=== PATIENT | female | born 1960 | race Caucasian/White ===

== ENCOUNTER 2023-02-03 16:25 | Emergency (ER) | payer MEDICARE, MEDICAID, SELFPAY ==
[2023-02-03 16:33] VITALS: BP 154/99; PULSE 95; RESP 24; TEMP 35.5; O2SAT 98; BMI 47.0
[2023-02-03 16:42] VITALS: O2SAT 97
--- NOTE | 2023-02-03 16:42 | CRLHL7_ITS ---
For Patients: As a result of the Cures Act, medical imaging exams and procedure reports are released immediately into your electronic medical record. You may view this report before your referring provider. If you have questions, please contact your health care provider. INDICATION: Shortness of breath. TECHNIQUE: Chest 1 views. COMPARISON: March 28, 2018. FINDINGS: Cardiovascular and mediastinum: Heart size and vasculature are normal in caliber and appearance. Lungs and pleural spaces: Lungs are clear. No sign of infiltrate or mass. No sign of pleural effusion. No pneumothorax. Bones and soft tissues: No significant findings. IMPRESSION: No acute findings and no significant changes from the prior exam. Dictated by Zachery Rojas MD @ 02/03/2023 5:45:43 PM (Electronically Signed)
--- NOTE | 2023-02-03 16:44 | ED_ITS ---
HPI - General Adult General Chief complaint: Anxiety Stated complaint: Ill Time Seen by Provider: 02/03/23 16:32 History of Present Illness HPI narrative: Patient is a 62-year-old white female from [place] who lives in her own independent housing who has felt ill and dizzy for couple of days. She denies any dysuria frequency denies chest pain. Says she has had intermittent shortness of breath but also peripheral numbness dizziness, occasional abdominal discomfort, occasional chest tightness. She is scheduled to have a epidural steroid injection tomorrow for low back pain and left radicular pain. She reports that she got up about 2 in the afternoon today from her evening sleep and was able to go downstairs take a shower but then felt dizzy and called an ambulance was brought to the hospital. Patient went to the [facility] last couple of days but waited over an hour and a half and then left without being seen. The ER EMS staff that arrived felt she was hyperventilating and anxious. They coached her and she got better. The patient does report a history of anxiety, obesity, depression, chronic pain. She is on sertraline metformin and [place]. Related Data Home Medications Medication Instructions Recorded Confirmed aspirin .ROUTE 02/03/23 blood sugar diagnostic (OneTouch 02/03/23 02/03/23 Ultra Test strips) calcium carbonate 600 mg calcium 600 mg PO DAILY 02/03/23 02/03/23 (1,500 mg) tablet cholecalciferol (vitamin D3) .ROUTE 02/03/23 hydrocodone 5 mg-acetaminophen 325 1 tab PO Q6H 02/03/23 02/03/23 mg tablet hydrocodone 5 mg-acetaminophen 325 1 tab PO Q6H PRN moderate pain 02/03/23 02/03/23 mg tablet ibuprofen 400 mg tablet 400 mg PO Q6-8H PRN 02/03/23 02/03/23 metformin 500 mg tablet mg PO 02/03/23 methocarbamol 500 mg tablet 500 mg PO QID 02/03/23 02/03/23 polyethylene glycol 400 0.25 % eye drp ophthalmic (eye) 02/03/23 drops (Blink Tears) sertraline 50 mg tablet 50 mg PO DAILY 02/03/23 02/03/23 Allergies Allergy/AdvReac Type Severity Reaction Status Date / Time cephalexin Allergy Mild Rash Verified 02/03/23 16:59 gabapentin Allergy Mild Rash Verified 02/03/23 16:59 [id number] Reductase Allergy myalgia Verified 02/03/23 16:59 Inhibitor Sulfa (Sulfonamide Allergy Rash Verified 02/03/23 16:59 Antibiotics) trimethoprim AdvReac Unknown Verified 02/03/23 16:59 aripiprazole [From Abilify] AdvReac restlessnes Verified 02/03/23 16:59 s asenapine [From Saphris] AdvReac Dizziness Verified 02/03/23 16:59 lurasidone [From Latuda] AdvReac restless Verified 02/03/23 16:59 legs metformin AdvReac Diarrhea Verified 02/03/23 16:59 metoprolol AdvReac Anxiety Verified 02/03/23 16:59 metronidazole AdvReac Headache Verified 02/03/23 16:59 risperidone AdvReac psych Verified 02/03/23 16:59 tolterodine AdvReac Dizziness Verified 02/03/23 16:59 triamcinolone [From Kenalog] AdvReac Flushing Verified 02/03/23 16:59 vancomycin AdvReac Headache Verified 02/03/23 16:59 baby powder AdvReac Rash Uncoded 02/03/23 16:59 Review of Systems Status of ROS: Reports: 10 or more systems reviewed and unremarkable except as noted in History and below Exam Narrative: Exam Narrative: Objective: Patient's vital signs unremarkable she is afebrile, O2 sats 98% on room air Patient is alert or x3, appears very anxious, she talks in real breathy voice and her voice strips in an out intensity. She occasion closes her eyes but she is open them to command she follows all commands. HEENT is unremarkable no facial asymmetry mouth clear mucous membranes appear dry neck is supple chest clear heart rhythm regular heart murmur abdomen obese benign nontender extremities are no edema neurologic nonfocal good peripheral perfusion noted Patient does report pain in her low back when she moves her back. Const: Vital Signs, click to edit/add: Vital Signs - 24 hr 02/03/23 16:33 02/03/23 16:42 02/03/23 17:45 Temperature 96 F L Pulse Rate [Pulse Oximeter] 95 71 Respiratory Rate 24 Blood Pressure [Le ft Forearm] 154/99 H Pulse Oximetry 98 97 99 Oxygen Delivery Me thod Room Air Room Air Course Vital Signs Vital signs: Initial Vital Signs Temperature 96 F L 02/03/23 16:33 Temperature Source Temporal Artery Scan 02/03/23 16:33 Pulse Rate 95 02/03/23 16:33 Pulse Rhythm Regular 02/03/23 16:33 Pulse Strength 3+ Normal 02/03/23 16:33 Respiratory Rate 24 02/03/23 16:33 Blood Pressure 154/99 H 02/03/23 16:33 Blood Pressure Mean 117 H 02/03/23 16:33 Blood Pressure Position Sitting 02/03/23 16:33 Pulse Oximetry 98 02/03/23 16:33 Oxygen Delivery Method Room Air 02/03/23 16:33 Vital Signs Temperature 96 F L 02/03/23 16:33 Pulse Rate 95 02/03/23 16:33 Respiratory Rate 24 02/03/23 16:33 Blood Pressure 154/99 H 02/03/23 16:33 Pulse Oximetry 98 02/03/23 16:33 Oxygen Delivery Method Room Air 02/03/23 16:33 Temperature 96 F L 02/03/23 16:33 Pulse Rate 71 02/03/23 17:45 Respiratory Rate 24 02/03/23 16:33 Blood Pressure 154/99 H 02/03/23 16:33 Pulse Oximetry 99 02/03/23 17:45 Oxygen Delivery Method Room Air 02/03/23 17:45 Medical Decision Making [facility] Narrative Medical decision making narrative: 62-year-old white female with significant anxiety and mental health overlie with complaint of low back pain lower left leg pain and primarily dizziness and ?not feeling well?. Patient this point I think is a very difficult historian will however get reassuring labs in the form of troponin EKG cardiac monitoring chest x-ray laboratory studies. Will give her aspirin 324 mg orally. Will review the above-mentioned studies disposition pending findings will also run a COVID test. Depending on patient's clinical status disposition planning will be made. Addendum: Patient's chest x-ray by my read looks unremarkable her EKG shows limited R-wave R-wave progression anteriorly but no acute ST T wave changes no obvious ischemic changes. Her laboratory studies look reassuring., specifically her white blood cell count is normal hemoglobin normal potassium low normal at 3.5 sodium normal renal function normal glucose elevated 196 CRP is 1.5 COVID influenza and RSV are negative point of care troponin is 0. At this point I think the patient is stable she is much less anxious the Ativan seemed to really help her she will get a ride home. Rest light activity and recommend she proceed with her scheduled appointments. Recheck with regular doctor in the next 2 or 3 days light activity, light diet. Lab Data Labs: Lab Results 02/03/23 Range/Units 17:00 WBC 5.65 (4.50-11.00) K/uL RBC 4.64 (4.00-5.20) m/uL Hgb 13.7 (12.0-16.0) gm/dL Hct 40.1 (33.0-51.0) % MCV 86 (80-100) fL MCH 30 (26-34) pg MCHC 34 (32-36) gm/dL RDW Coeff of [place] 13.1 (11.5-15.5) % Plt Count 151 (140-440) K/uL Neut % (Auto) 72.0 (42.0-72.0) % Lymph % (Auto) 20.5 (20-44) % [place] % (Auto) 5.3 (0.0-11.0) % Eos % (Auto) 0.7 (0.0-7.0) % Baso % (Auto) 0.4 (0.0-3.0) % Neut # (Auto) 4.07 (1.7-7.0) K/uL Lymph # (Auto) 1.16 (0.90-2.90) K/uL [place] # (Auto) 0.30 (0.00-0.90) K/UL Eos # (Auto) 0.04 (0.00-0.50) K/uL Baso # (Auto) 0.02 (0.00-0.30) K/uL Sodium 138 (135-149) mmol/L Potassium 3.5 L (3.6-5.1) mmol/L Chloride 102 (96-114) mmol/L Carbon Dioxide 28 (20-32) mmol/L BUN 17 (7-30) mg/dL Creatinine 0.8 (0.5-1.5) mg/dL Estimated Creat Clear 72.72 Estimated GFR 84 ml/min Glucose 196 H (60-115) mg/dL Calcium 9.3 (8.4-10.6) mg/dL Total Bilirubin 1.4 (0.1-1.5) mg/dL Direct Bilirubin 0.5 (0.0-0.5) mg/dL AST 36 H (12-35) U/L ALT 35 (4-35) U/L Alkaline Phosphatase 85 (40-150) U/L C-Reactive Protein 1.5 H (0.5-1.0) mg/dL NT-Pro-B Natriuret Pep 96 pg/mL Total Protein 7.5 (6.0-8.3) g/dL Albumin 4.3 (3.3-5.0) g/dL Amylase 53 (18-89) U/L SARS-CoV-2 (PCR) Negative SARS-CoV-2 (Negative) Influenza Type A (PCR) Negative PCR FLU A (Negative) Influenza Type B (PCR) Negative PCR FLU B (Negative) RSV (PCR) Negative PCR RSV (Negative) POC Troponin I 0.00 L (0.01-0.04) ng/ml Discharge Plan Discharge Clinical Impression: Dizziness, Hyperventilation, Acute anxiety Patient Disposition: Home w/ Parent or Adult Condition: Improved Additional Instructions: Rest, fluids, light activity, proceed with regular scheduled appointments. Continue home medications. Return as needed. Activity Level: Light activity Discharge Diet: Low Fat/Low Cholesterol Prescriptions: No Action metformin 500 mg tablet PO hydrocodone-acetaminophen 5-325 mg tablet 1 tab PO Q6H PRN (Reason: moderate pain) (DME) OneTouch Ultra Test Strip 1 strip MISCELLANEOUS DAILY sertraline 50 mg tablet 50 mg PO DAILY aspirin [Adult Aspirin Regimen] .ROUTE Blink Tears 0.25 % drops ophthalmic (eye) calcium carbonate 600 mg calcium (1,500 mg) tablet 600 mg PO DAILY hydrocodone-acetaminophen 5-325 mg tablet 1 tab PO Q6H ibuprofen 400 mg tablet 400 mg PO Q6-8H PRN methocarbamol 500 mg tablet 500 mg PO QID cholecalciferol (vitamin D3) .ROUTE Stand Alone Forms: MyHealth Info Instructions
[2023-02-03] MEDS: LORazepam 2 MG/ML inj 1 MG IVP (17:00)
[2023-02-03 17:39] LABS: Basophils Absolute Auto 0.02 K/uL (0.00-0.30); Basophils Percent Auto 0.4 % (0.0-3.0); Eosinophils Absolute Auto 0.04 K/uL (0.00-0.50); Eosinophils Percent Auto 0.7 % (0.0-7.0); Hematocrit 40.1 % (33.0-51.0); Hemoglobin* 13.7 gm/dL (12.0-16.0); Immature Granulocytes Abs Auto 0.06 K/uL (0.00-0.30); Immature Granulocytes Pct Auto 1.1 %; Lymphocytes Absolute Auto 1.16 K/uL (0.90-2.90); Lymphocytes Percent Auto 20.5 % (20-44); Mean Corpuscular HGB Conc 34 gm/dL (32-36); Mean Corpuscular Hemoglobin 30 pg (26-34); Mean Corpuscular Volume 86 fL (80-100); Monocytes Percent Auto 5.3 % (0.0-11.0); Neutrophils Absolute Auto 4.07 K/uL (1.7-7.0); Platelet Count* 151 K/uL (140-440); RDW Coefficient of Variation % 13.1 % (11.5-15.5); Red Blood Count 4.64 m/uL (4.00-5.20); White Blood Count* 5.65 K/uL (4.50-11.00)
[2023-02-03 17:41] LABS: Slide Review Reflex No
[2023-02-03 17:45] VITALS: PULSE 71; O2SAT 99
[2023-02-03 17:50] LABS: Albumin* 4.3 g/dL (3.3-5.0); Chloride* 102 mmol/L (96-114)
[2023-02-03 17:51] LABS: Potassium* 3.5 mmol/L (3.6-5.1); Sodium* 138 mmol/L (135-149)
[2023-02-03 17:53] LABS: Amylase* 53 U/L (18-89); Creatinine* 0.8 mg/dL (0.5-1.5); Est. Creatinine Clearance* 72.72; Estimated Glomerular Filt Rate 84 ml/min
[2023-02-03 17:54] LABS: Alanine Aminotransferase* 35 U/L (4-35); Alkaline Phosphatase* 85 U/L (40-150); Aspartate Amino Transferase* 36 U/L (12-35); Bilirubin Direct* 0.5 mg/dL (0.0-0.5); Bilirubin Total* 1.4 mg/dL (0.1-1.5); Blood Urea Nitrogen* 17 mg/dL (7-30); Calcium* 9.3 mg/dL (8.4-10.6); Carbon Dioxide* 28 mmol/L (20-32); Glucose* 196 mg/dL (60-115); Total Protein* 7.5 g/dL (6.0-8.3)
[2023-02-03 17:55] LABS: PCR FLU A Negative PCR FLU A (Negative); PCR FLU B Negative PCR FLU B (Negative); PCR RSV Negative PCR RSV (Negative)
[2023-02-03 17:56] LABS: C Reactive Protein* 1.5 mg/dL (0.5-1.0)
[2023-02-03 18:04] LABS: SARS PCR* Negative SARS-CoV-2 (Negative)
[2023-02-03 18:05] LABS: NT Pro B Type NatriureticPept* 96 pg/mL
== END 2023-02-03 18:25 | disposition home or self-care (01) ==
PROVIDERS: Emergency Provider Family Medicine
DX: R42 Dizziness and giddiness (principal); R06.4 Hyperventilation; F41.9 Anxiety disorder, unspecified
CPT/HCPCS: 36415; 71045; 80048; 80076; 82150; 83880; 84484; 85025; 86140; 87631; 93005; 94761; 96374; 99284; 99285; J2060

== ENCOUNTER 2025-07-06 22:09 | Observation (INO) | payer MEDICARE, MEDICAID, SELFPAY ==
--- OUTSIDE RECORDS SUMMARY | 2025-04-26 07:09 | XMS_ITS | Continuity of Care Document ---
Author Organization [facility] Address [address] [address] [place] [address] Phone Care Team Providers Care Auto Body Detailer Name Role Phone Bernardo BAEZ, Mitra Unavailable Unavailable Allergies, Adverse Reactions, Alerts Substance Reaction Status Criticality LURASIDONE HCL Active No Informatio n aripiprazole Active No Information ASENAPINE MALEATE Active No Informa tion ASENAPINE MALEATE Active No Informa tion metformin Active No Information cephalexin Active No Information gabapentin Active No Information TRIAMCINOLONE ACETONIDE Active No I nformation metronidazole Active No Information vancomycin Active No Information tolterodine unknown reaction Active No Informat ion ASENAPINE MALEATE unknown reaction Active No Inf ormation cephalexin unknown reaction Active No Informat ion Sulfa (Sulfonamide Antibiotics) unknown reaction Activ e No Information talc Rash Active No Information metoprolol anxiety Active No Information risperidone halucinations Active No Information trimethoprim Hives Active No Information sulfamethoxazole Hives Active No Informat ion WARNIN allergy(ies) could not be collected because the type is not supported. Please contact the source practice for further details. Medications Medication Instructions Dosage Effective Dates (start - stop) Status Comments Tylenol Extra Strength 500 mg tablet take 2 tablet by oral route every 4 hours as needed 1000 MG - Active hydroxyzine HCl 25 mg tablet take 1 tablet by oral route 3 times every day as needed as needed 25 MG - Active Centrum Women 18 mg-400 mcg tablet take 1 tablet by oral route every day with food 1.00 tablet - Active Insulin unknown - Active lidocaine 5 % topical patch apply 1 patch by topical route every day (May wear up to 12hours.) as needed 1.00 patch - Active metformin ER 500 mg tablet,extended release 24 hr take 1 tablet by oral route 2 times every day with the evening meal 500 MG - Active methocarbamol 500 mg tablet take 2 tablet by oral route 4 times every day as needed 1000 MG - Active OneTouch Delica Plus Lancet 33 gauge - Active oxycodone 5 mg tablet take 1 tablet by oral route every 8 hours as needed as needed 5 MG - Active Ozempic 2 mg/dose (8 mg/3 mL) subcutaneous pen injector inject (0.25) by subcutaneous route every week on the same day of each week - Active sertraline 50 mg tablet take 1 tablet by oral route every day 50 MG - Active Tums 200 mg (as calcium carbonate 500 mg) chewable tablet take 1 - 2 Tablet by Oral route every day as needed as needed 1-2 Tablet - Active ibuprofen 400 mg tablet take 1 tablet by oral route every 4 - 6 hours as needed 400 MG - Active Zeasorb AF 2 % topical powder apply by topical route 2 times every day to the affected area(s) in the morning and evening 0.00 - Active Procedures Procedure Date Offic/outpt E&m Estab Moderate 25 Complex e/m visit add on Offic/outpt E&m Estab Mod-hi 2 24 Offic/outpt E&m Estab Mod-hi 2 23 Colonoscopy Flex; W/bx 1/mx Offic/outpt E&m Estab Mod-hi 2 22 Offic/outpt E&m Estab Mod-hi 2 21 Telephone E&M III 21-30 Min MD SHERRELL Telephone E&M II 11-20 Min MD SHERRELL Offic/outpt E&m Estab Mod-hi 2 20 Offic/outpt E&m Estab Mod-hi 2 19 Offic/outpt E&m Estab Mod-hi 2 19 Offic/outpt E&m Estab Low-mod 8 Ugi Endo; W/bx 1/mx Offic/outpt E&m Estab Mod-hi 2 18 Offic/outpt E&m Estab Low-mod 8 Offic/outpt E&m Estab Mod-hi 2 18 Offic/outpt E&m Estab Low-mod 8 Offic/outpt E&m Estab Mod-hi 2 18 Routine Serum Collection Bld Ct; Hg/pltlt Ct Auto/compl 18 Basic Metabolic Panel Offic/outpt E&m Estab Mod-hi 2 18 Offic/outpt E&m Estab Mod-hi 2 17 Colorectal Ca Screen Hi Risk I 17 Offic/outpt E&m Estab Mod-hi 2 17 Offic/outpt E&m Estab Mod-hi 2 16 Offic/outpt E&m Estab Mod-hi 2 16 Routine Serum Collection Bld Ct; Hg & Platelet Ct Autom 16 Bilirubin; Direct Comp Metabolic Panel Medical nutrition therapy, initial, each 15 minutes Offic/outpt E&m Estab Mod-hi 2 15 FibroScan Offic/outpt E&m Estab Low-mod 4 1036F G8421 G8427 G8482 4040F 3017F G8950 Bld Ct; Hg/pltlt Ct Auto/compl 13 Alpha-fetoprotein; Serum Hepatic Function Panel Basic Metabolic Panel Prothrombin Time Offic/outpt E&m Estab Mod-hi 2 13 Routine Serum Collection 1036F G8417 Director Risk Hepatitis C Antibody; Offic/outpt E&m Estab Mod-hi 2 12 Routine Serum Collection G8447 1036F G8417 Colorectal Ca Screen Hi Risk I 12 Offic/outpt E&m Estab Mod-hi 2 11 G8447 1036F G8417 Offic/outpt E&m Estab Mod-hi 2 10 G8447 Offic/outpt E&m Estab Mod-hi 2 09 G8447 Offic/outpt E&m Estab Mod-hi 2 09 G8447 Bx Liver Needle; Percut Offic/outpt E&m Estab Mod-hi 2 09 Routine Serum Collection Offic/outpt E&m Estab Minor 10 08 Routine Serum Collection G8447 Offic/outpt E&m Estab Low-mod 8 G8447 Ugi Endo; W/bx 1/mx Level Iv-surg Path Gross/micro 08 Offic/outpt E&m Estab Mod-hi 2 08 Offic/outpt E&m Estab Mod-hi 2 07 Routine Serum Collection Colorectal Ca Screen Hi Risk I 07 Offic/outpt E&m Estab Mod-hi 2 06 Routine Serum Collection Offic/outpt E&m Estab Mod-hi 2 06 Routine Serum Collection Offic/outpt E m Estab Mod Advance Directives Directive Yes / No Effective Date File Name No Information Encounters Encounter Description Practice Location Reason(s) For Visit Diagnoses Date Provider Providers Copied on Encounter [facility] [address] [address], [place], [id number], [place] tel:[phone] [facility] No Information Apr-0 5 Bernardo Manriquez. [address] [place] [address], [address], [id number], [place]. tel:[phone] Jimy Posada MD. tel:[phone] Offic/outpt E&m Estab Moderate [facility], [address] [address], [place], [id number], [place] tel:[phone] [facility] GI Symptoms or Concerns (chief complaint) Liver cirrhosis secondary to NAQVI (nonalcoholic steatohepatit is)Unspecifie d cirrhosis of liverDietary counseling and surveillance 5 Bernardo Manriquez. [address] [place] [address], [id number], [place]. tel:[phone] Jimy Posada MD. tel:[phone] ring Provider: Mitra Chang MD, [address] [place] [address], [address]. [phone] [facility], [address] [address], [place], [id number], [place] tel:[phone] [place] [address] No Information Oct- 5 Bernardo Manriquez. [address] [place] [address], [address], [id number], [place]. tel:[phone] Referring Provider: Referral Self, USE FOR SELF REFERRALS. [facility], [address] [address], [place], [id number], [place] tel:[phone] [facility] Liver cirrhosis secondary to NASHUnspecifi ed cirrhosis of liver 5 Bernardo Manriquez. [address] [place] [address], [id number], [place]. tel:[phone] Referring Provider: Referral Self, USE FOR SELF REFERRALS. [facility], [address] [address], [place], [id number], [place] tel:[phone] [facility] NAQVI (nonalcoholic steatohepatit is) 4 Bernardo BAEZ Manriquez. [address] [facility], [place] [address], [place], [id number], [place]. tel:[phone] Offic/outpt E&m Estab Mod-hi 2 [facility], [address] [address], [facility] [place], [id number], [place] tel:[phone] [facility] GI Symptoms or Concerns (chief complaint) Liver cirrhosis secondary to NASHUnspecifi ed cirrhosis of liver 4 Bernardo BAEZ Manriquez. [address] [facility], [place], [place], [address], [place]. tel:[phone] Juana Magana MD. tel:[phone] Provider: Referral Self, USE FOR SELF REFERRALS. [facility], [address] [address], [place], [id number], [place] tel:[phone] [facility] Chronic liver disease 4 Bernardo BAEZ Manriquez. [address] [facility], [place] [address], [place], [id number], [place]. tel:[phone] Referring Provider: Referral Self, USE FOR SELF REFERRALS. Offic/outpt E&m Estab Mod-hi 2 [facility], [address] [address], [place], [id number], [place] tel:[phone] [facility] GI Symptoms or Concerns (chief complaint) NAFLD (nonalcoholic fatty liver disease) 3 Bernardo BAEZ Manriquez. [address] [facility], [place] [address], [place], [id number], [place]. tel:[phone] Juana Magana MD. tel:[phone] Provider: Referral Self, USE FOR SELF REFERRALS. [facility], [address] [address], [place], [id number], [place] tel:[phone] [facility] Chronic liver disease 2 Bernardo BAEZ Manriquez. [address] [facility], [address], [id number], [place]. tel:[phone] [facility], [address] [address], [place], [id number], [place] tel:[phone] [facility] No Information Ashu- 2 Ovi Varela. [address] [place] [address], [address], [id number], [place]. tel:[phone] Referring Provider: Avery Dior MD S, [address] [place] [address], [address]. tel:[phone] Offic/outpt E&m Estab Mod-hi 2 [facility], [address] [address], [place], [id number], [place] tel:[phone] [facility] GI Symptoms or Concerns (chief complaint) NAQVI (nonalcoholic steatohepatit is) 2 Bernardo Manriquez. [address] [place] [address], [id number], [place]. tel:[phone] Juana Magana MD. tel:[phone] ring Provider: Referral Self, USE FOR SELF REFERRALS. [facility], [address] [address], [place], [id number], [place] tel:[phone] [facility] No Information 2 Bernardo Manriquez. [address] [place] [address], [address], [id number], [place]. tel:[phone] [facility], [address] [address], [place], [id number], [place] tel:[phone] [facility] Other cirrhosis of liver 1 Bernardo Manriquez. [address] [place] [address], [address], [id number], [place]. tel:[phone] Offic/outpt E&m Estab Mod-hi 2 [facility], [address] [address], [place], [id number], [place] tel:[phone] [facility] GI Symptoms or Concerns (chief complaint) Periumbilical abdominal pain 1 Ovi Varela. [address] [place] [address], [id number], [place]. tel:[phone] Referring Provider: Referral Self, USE FOR SELF REFERRALS. [facility], [address] [address], [place], [place], [id number], [place] tel:[phone] [facility] No Information 1 Sofia Oneal. [address] [place] [address], [id number], [place]. tel:[phone] Telephone E&M III 21-30 Min SHERRELL [facility], [address] [address], [place], [id number], [place] tel:[phone] [facility] GI Symptoms or Concerns (chief complaint) NAQVI (nonalcoholic steatohepatit is) 1 Bernardo Manriquez. [address] [place] [address], [id number], [place]. tel:[phone] Referring Provider: Referral Self, USE FOR SELF REFERRALS. [facility], [address] [address], [place], [id number], [place] tel:[phone] [facility] No Information 1 Bernardo Manriquez. [address] [place] [address], [id number], [place]. tel:[phone] [facility], [address] [address], [place], [address], [place] tel:[phone] [facility] Chronic liver disease 0 Bernardo Manriquez. [address] [place] [address], [id number], [place]. tel:[phone] Telephone E&M II 11-20 Min SHERRELL [facility], [address] [address], [place], [id number], [place] tel:[phone] [facility] GI Symptoms or Concerns (chief complaint) NAQVI (nonalcoholic steatohepatit is) 0 0 Bernardo Manriquez. [address] [facility], [address], [id number], [place]. tel:[phone] Referring Provider: Referral Self, USE FOR SELF REFERRALS. Offic/outpt E&m Estab Mod-hi 2 [facility], [address] [address], [place], [place], [address], [place] tel:[phone] [facility] GI Symptoms or Concerns (chief complaint) NAFLD (nonalcoholic fatty liver disease) 0 Bernardo Manriquez. [address] [facility], [address], [id number], [place]. tel:[phone] Referring Provider: Referral Self, USE FOR SELF REFERRALS. [facility], [address] [address], [place], [place], [id number], [place] tel:[phone] [facility] No Information 0 Bernardo Manriquez. [address] [facility], [facility] [address], [place], [place], [id number], [place]. tel:[phone] Offic/outpt E&m Estab Mod-hi 2 [facility], [address] [address], [place], [place], [id number], [place] tel:[phone] [facility] GI Symptoms or Concerns (chief complaint) Liver cirrhosis secondary to NASHUnspecifi ed cirrhosis of liverDietary counseling and surveillance 9 Bernardo Manriquez. [address] [facility], [facility] [address], [place], [id number], [place]. tel:[phone] Referring Provider: Referral Self, USE FOR SELF REFERRALS. Offic/outpt E&m Estab Mod-hi 2 [facility], [address] [address], [place], [place], [id number], [place] tel:[phone] [facility] GI Symptoms or Concerns (chief complaint) NAFLD (nonalcoholic fatty liver disease) 9 Bernardo Manriquez. [address] [facility], [address], [place], [place], [id number], [place]. tel:[phone] Referring Provider: Referral Self, USE FOR SELF REFERRALS. Offic/outpt E&m Estab Low-mod [facility], [address] [address], [place], [place], [id number], [place] tel:[phone] [facility] GI Symptoms or Concerns (chief complaint) Gastroesophag eal reflux disease without esophagitisEs ophageal dysphagiaDiet dacia counseling and surveillance 8 Phillip Panda. [address] [facility], [place] [address], [place], [id number], [place]. tel:[phone] Referring Provider: Referral Self, USE FOR SELF REFERRALS. [facility], [address] [address], [place], [place], [id number], [place] tel:[phone] [facility] No Information 8 Phillip Panda. [address] [facility], [facility] [address], [place], [id number], [place]. tel:[phone] Referring Provider: [place], [address] [address] [place], [address]. tel:[phone] Offic/outpt E&m Estab Mod-hi 2 [facility], [address] [address], [place], [place], [id number], [place] tel:[phone] [facility] GI Symptoms or Concerns (chief complaint) Cirrhosis of liver without ascites, unspecified hepatic cirrhosis typeDietary counseling and surveillanceE levated blood-pressur e reading, w/o diagnosis of htn 8 Bernardo Manriquez. [address] [facility], [address], [place], [place], [id number], [place]. tel:[phone] Referring Provider: [place], [address] [place], [address]. tel:[phone] Offic/outpt E&m Estab Low-mod [facility], [address] [address], [place], [place], [address], [place] tel:[phone] [facility] GI Symptoms or Concerns (chief complaint) Esophageal dysphagia 8 Phillip Panda. [facility], [id number], [place]. tel:[phone] Ref[place]: [place], [address] [address], [place], [address]. tel:[phone] Offic/outpt E&m Estab Mod-hi 2 [facility], [address] [address], [facility] [place], [id number], [place] tel:[phone] [facility] GI Symptoms or Concerns (chief complaint) Loose stoolsEsophag eal dysphagiaEpig astric painDietary counseling and surveillance 8 Senthil Mcqueen. [facility] [address], [id number], [place]. [phone] Referring Provider: Referral Self, USE FOR SELF REFERRALS. [facility], [address] [address], [facility] [place], [address], [place] tel:[phone] [facility] NAFLD (nonalcoholic fatty liver disease) 8 No Information [facility], [address] [address], [facility] [place], [id number], [place] tel:[phone] [facility] Diarrhea, unspecified type 8 Phillip Panda. [address], [id number], [place]. tel:[phone] [facility], [address] [address], [facility] [place], [id number], [place] tel:[phone] [facility] Diarrhea, unspecified type 8 Ata Alex. [address], [id number], [place]. tel:[phone] [facility], [address] [address], [place], [id number], [place] tel:[phone] [facility] C. difficile diarrhea 8 Edstrom ATIYA Barrett. [address] [facility], [facility] [address], [place], [place], [id number], [place]. tel:[phone] Offic/outpt E&m Estab Low-mod [facility], [address] [address], [place], [place], [address], [place] tel:[phone] [facility] GI Symptoms or Concerns (chief complaint) C. difficile diarrhea 8 Phillip Panda. [address] [facility], [facility] [address], [place], [id number], [place]. tel:[phone] Referring Provider: [place], [address] [address], [address]. tel:[phone] [facility], [address] [address], [place], [place], [id number], [place] tel:[phone] [facility] Abdominal pain, lowerAcute diarrhea 8 Edstrom ATIYA Barrett. [address] [facility], [facility] [address], [place], [id number], [place]. tel:[phone] Offic/outpt E&m Estab Mod-hi 2 [facility], [address] [address], [place], [place], [id number], [place] tel:[phone] [facility] GI Symptoms or Concerns (chief complaint) Acute diarrheaAbdom inal pain, lowerDietary counseling and surveillanceE levated blood-pressur e reading, w/o diagnosis of htn 8 Ed[place] ATIYA Barrett. [address] [facility], [address], [id number], [place]. tel:[phone] Referring Provider: [place], [address] [address], [address]. tel:[phone] Offic/outpt E&m Estab Mod-hi 2 [facility], [address] [address], [place], [place], [id number], [place] tel:[phone] [facility] GI Symptoms or Concerns (chief complaint) NAQVI (nonalcoholic steatohepatit is)Dietary counseling and surveillanceE ssential (primary) hypertension 8 Bernardo BAEZ Manriquez. [address] [facility], [address], [place], [place], [address], [place]. tel:[phone] Referring Provider: [place], [address] [address], [address]. tel:[phone] [facility], [address] [address], [place], [place], [id number], [place] tel:[phone] [facility] Diarrhea, unspecified type 8 Bernardo BAEZ Manriquez. [address] [facility], [facility] [address], [place], [place], [id number], [place]. tel:[phone] [facility], [address] [address], [place], [place], [address], [place] tel:[phone] [facility] Cirrhosis of liver without ascites, unspecified hepatic cirrhosis type 8 Bernardo BAEZ Manriquez. [address] [facility], [facility] [address], [place], [place], [id number], [place]. tel:[phone] Offic/outpt E&m Estab Mod-hi 2 [facility], [address] [address], [place], [place], [address], [place] tel:[phone] [facility] GI Symptoms or Concerns (chief complaint) GI Symptoms or Concerns (chief complaint) NAFLD (nonalcoholic fatty liver disease)Dieta ry counseling and surveillanceE levated blood-pressur e reading, w/o diagnosis of htn 7 Bernardo BAEZ Manriquez. [address] [facility], [address], [place], [place], [id number], [place]. tel:[phone] Referring Provider: [place], [address] [address], [address]. tel:[phone] [facility], [address] [address], [place], [place], [id number], [place] tel:[phone] [facility] NAFLD (nonalcoholic fatty liver disease)Chron ic liver disease 7 Phillip Panda. [address] [facility], [address], [id number], [place]. tel:[phone] [facility], [address] [address], [place], [id number], [place] tel:[phone] [facility] No Information Ovi Varela. [address] [facility], [address], [id number], [place]. tel:[phone] Referring [place]: [place], [address] [place], [address]. tel:[phone] Offic/outpt E&m Estab Mod-hi 2 [facility], [address] [address], [place], [address], [place] tel:[phone] [facility] GI Symptoms or Concerns (chief complaint) Fatty liverDietary counseling and surveillanceE ssential (primary) hypertension 7 Bernardo Manriquez. [address] [facility], [address], [id number], [place]. tel:[phone] Referring Provider: Referral Self, USE FOR SELF REFERRALS. [facility], [address] [address], [place], [address], [place] tel:[phone] [facility] Diarrhea, unspecified type Bernardo Manriquez. [address] [facility], [address], [id number], [place]. tel:[phone] [facility], [address] [address], [place], [address], [place] tel:[phone] [facility] Chronic liver disease 7 Bernardo Manriquez. [address] [facility], [address], [id number], [place]. tel:[phone] Offic/outpt E&m Estab Mod-hi 2 [facility], [address] [address], [place], [address], [place] tel:[phone] [facility] GI Symptoms or Concerns (chief complaint) Fatty liverDietary counseling and surveillanceE levated blood-pressur e reading, w/o diagnosis of htn 6 Bernardo Manriquez. [address], [id number], [place]. tel:[phone] Referring Provider: Referral Self, USE FOR SELF REFERRALS. Offic/outpt E&m Estab Mod-hi 2 [facility], [address] [address], [facility] [place], [id number], [place] tel:[phone] [facility] GI Symptoms or Concerns (chief complaint) Fatty liverDietary counseling and surveillance 6 Bernardo Manriquez. [address], [id number], [place]. tel:[phone] Referring Provider: Referral Self, USE FOR SELF REFERRALS. [facility], [address] [address], [place], [place], [address], [place] tel:[phone] [facility] Non-alcoholic Fatty Liver 5 Urban Crocker. [address] [place] [address], [id number], [place]. tel:[phone] Referring Provider: Referral Self, USE FOR SELF REFERRALS. Offic/outpt E&m Estab Mod-hi 2 [facility], [address] [address], [facility] [place], [address], [place] tel:[phone] [facility] Liver Symptoms or Concerns (chief complaint) Non-alcoholic Fatty LiverRUQ PainDietary Surveil/couns elOther specified diseases of liverRight upper quadrant painDietary counseling and surveillance No Information Referring Provider: Referral Self, USE FOR SELF REFERRALS. [facility], [address] [address], [place], [id number], [place] tel:[phone] [facility] No Information No Information Referring [place]: [place], [address] [address], [address]. tel:[phone] [facility], [address] [address], [place], [id number], [place] tel:[phone] [facility] Alcoholic Fatty LiverCirrhosi s Of Liver Nos 5 No Information Offic/outpt E&m Estab Low-mod [facility], [address] [address], [place], [id number], [place] tel:[phone] [facility] Liver Symptoms or Concerns (chief complaint) Non-alcoholic Fatty LiverRUQ Pain 4 No Information Referring Provider: Referral Self, USE FOR SELF REFERRALS. Offic/outpt E&m Estab Mod-hi 2 [facility], [address] [address], [place], [id number], [place] tel:[phone] [facility] Abnormal LFT's (chief complaint) Non-alcoholic Fatty Liver 3 No Information Referring Provider: [place], [address] [place], [address]. tel:[phone] [facility], [address] [address], [place], [id number], [place] tel:[phone] [facility] Non-alcoholic Fatty Liver 2 No Information Referring [place]: [place], [address] [place], [address]. tel:[phone] Offic/outpt E&m Estab Mod-hi 2 [facility], [address] [address], [place], [id number], [place] tel:[phone] [facility] non-alcoho lic fatty liver (chief complaint) Non-alcoholic Fatty Liver 2 No Information Referring Provider: [place], [address] [place], [address]. tel:[phone] [facility], [address] [address], [place], [id number], [place] tel:[phone] [facility] No Information 2 No Information Offic/outpt E&m Estab Mod-hi 2 [facility], [address] [address], [place], [id number], [place] tel:[phone] [facility] Fatty Liver disease (chief complaint) Non-alcoholic Fatty LiverNon-alco holic Fatty Liver 1 No Information [place]: [place], [address] [place], [address]. tel:[phone] Offic/outpt E&m Estab Mod-hi 2 [facility], [address] [address], [place], [id number], [place] tel:[phone] [facility] Fatty liver (chief complaint) Non-alcoholic Fatty LiverCirrhosi s Of Liver Nos 0 No Information Referring Provider: [place], [address] [place], [address]. tel:[phone] Offic/outpt E&m Estab Mod-hi 2 [facility], [address] [address], [place], [place], [id number], [place] tel:[phone] [facility] Liver disease (chief complaint) Non-alcoholic Fatty Liver 9 No Information Referring [place], [address] [place], [address]. tel:[phone] Offic/outpt E&m Estab Mod-hi 2 [facility], [address] [address], [place], [place], [id number], [place] tel:[phone] [facility] Fatty Liver (chief complaint) Cirrhosis Of The Liver (chief complaint) Non-alcoholic Fatty Liver Oct-3 0 9 No Information [place]: [place], [address] [place], [address]. tel:[phone] [facility], [address] [address], [place], [place], [id number], [place] tel:[phone] [facility] No Information 9 No Information [place]: [place], [address] [place], [address]. tel:[phone] Offic/outpt E&m Estab Mod-hi 2 [facility], [address] [address], [place], [id number], [place] tel:[phone] [facility] Non-alcoholic Fatty LiverCirrhosi s Of Liver Nos 9 No Information Referring Provider: Siomara Rivas MD L, [address] [facility] [address] , [place], [address]. tel:[phone] Offic/outpt E&m Estab Minor 10 [facility], [address] [address], [place], [id number], [place] tel:[phone] [facility] Non-alcoholic Fatty LiverFlatul/e ructat/gas Pain 8 [address] P[address], [id number], [place]. tel:[phone] Referring [place]: [place], [address] [place], [address]. tel:[phone] Offic/outpt E&m Estab Low-mod [facility], [address] [address], [place], [id number], [place] tel:[phone] [facility] Chest Pain NosFlatul/eru ctat/gas Pain 8 No Information Referring [place]: [place], [address] [place], [address]. tel:[phone] [facility], [address] [address], [place], [id number], [place] tel:[phone] [facility] HeartburnIron Deficiency Anemia 8 [address] Panda. [address], [id number], [place]. tel:[phone] Referring [place]: [place], [address] [place], [address]. tel:[phone] Offic/outpt E&m Estab Mod-hi 2 [facility], [address] [address], [place], [id number], [place] tel:[phone] [facility] Flatul/eructa t/gas PainChest Pain Nos 3 8 No Information Referring [place]: [place], [address] [place], [address]. tel:[phone] Offic/outpt E&m Estab Mod-hi 2 [facility], [address] [address], [place], [id number], [place] tel:[phone] [facility] Alcoholic Fatty Liver 7 No Information Ref[place]: [place], [address] [place], [address]. tel:[phone] [facility], [address] [address], [place], [id number], [place] tel:[phone] [facility] Colon Cancer ScreeningFami ly Hx GI Tract Cancer 7 No Information Ref[place], [address] [place], [address]. tel:[phone] Offic/outpt E&m Estab Mod-hi 2 [facility], [address] [address], [place], [place], [id number], [place] tel:[phone] [facility] Non-alcoholic Fatty Liver Sep-2 0 6 No Information Referring [place]: [place], [address] [place], [address]. tel:[phone] Offic/outpt E m Estab Mod [facility], [address] [address], [place], [id number], [place] tel:[phone] [facility] Non-alcoholic fatty liver Nov-0 2200 5 No Information Referring [place]: [place], [address] [place], [address]. tel:[phone] Family History Family Member Type Diagnosis Age At Onset Brother Problem (finding) hypertension Brother Problem (finding) Colon polyps Son Problem (finding) Alive and well First degree family history Problem (finding) GERD Son Problem (finding) hypertension Mother Problem (finding) Colon polyps Sister Problem (finding) Colon polyps Son Problem (finding) GERD Mother Problem (finding) alcoholism First degree family history Problem (finding) Colon Po lyps Son Problem Diabetes mellitus Brother Problem (finding) Alive and well Son Problem (finding) alcoholism First degree family history Problem (finding) cancer o f colon Paternal grandfather Problem (finding) cancer of colon Sister Problem (finding) Alive and well Brother Problem (finding) alcoholism Immunizations Vaccine Date Status Comments SARS-COV-2 (COVID-19) vaccin e, mRNA, spike protein, LNP, preservative free, 30 mcg/0.3mL dose administered Note: [facility] bi-direct ional interface ; Source: Other Registry SARS-COV-2 (COVID-19) vaccin e, mRNA, spike protein, LNP, preservative free, 30 mcg/0.3mL dose administered Note: [facility] bi-direct ional interface ; Source: Other Registry SARS-COV-2 (COVID-19) vaccin e, mRNA, spike protein, LNP, preservative free, 30 mcg/0.3mL dose administered Note: [facility] bi-direct ional interface ; Source: Other Registry Influenza, recombinant, quadrivalent, injectable, preservative free administered Note: [facility] bi-direct ional interface ; Source: Other Registry Seasonal, quadrivalent, recombinant, injectable influenza vaccine, preservative free administered Note: [facility] bi-direct ional interface ; Source: Other Registry Havrix administered Note: [facility] bi-d irectional interface ; Source: Other Registry Influenza, recombinant, quadrivalent, injectable, preservative free administered Note: [facility] bi-direct ional interface ; Source: Other Registry Seasonal, quadrivalent, recombinant, injectable influenza vaccine, preservative free administered Note: [facility] bi-direct ional interface ; Source: Other Registry Havrix administered Note: [facility] bi-d irectional interface ; Source: Other Registry Influenza, injectable, MDCK, preservative free Flucelvax Quad 2017- administered Source: Other Provid er Afluria Qd administered Note: [facility] bi-directional interface ; Source: Other Registry Afluria Qd administered Note: [facility] bi-directional interface ; Source: Other Registry Fluzone Quad 6mo or older administered Note: [facility] bi-direct ional interface ; Source: Other Registry Influenza, injectable, quadrivalent, preservative free, 3 yrs or older administered Source: Other Provi wildre Afluria Qd administered Note: [facility] bi-directional interface ; Source: Other Registry Afluria Qd administered Note: [facility] bi-directional interface ; Source: Other Registry Fluzone Quad 6mo or older administered Note: [facility] bi-direct ional interface ; Source: Other Registry tetanus toxoid, reduced diphtheria toxoid, and acellular pertussis vaccine, adsorbed administered Note: [facility] bi-direct ional interface ; Source: Other Registry Afluria Qd administered Note: [facility] bi-directional interface ; Source: Other Registry Afluria Qd administered Note: [facility] bi-directional interface ; Source: Other Registry Fluzone Quad 6mo or older administered Note: [facility] bi-direct ional interface ; Source: Other Registry Influenza, injectable, quadrivalent, preservative free, 3 yrs or older administered Source: Other Provi wilder Influenza virus vaccine, injectable, quadrivalent, split virus, preservative free, 3 years or older Fluarix Quad administered Source: Other Provid er Afluria Qd administered Note: [facility] bi-directional interface ; Source: Other Registry Afluria Qd administered Note: [facility] bi-directional interface ; Source: Other Registry Fluzone Quad 6mo or older administered Note: [facility] bi-direct ional interface ; Source: Other Registry Pneumovax 23 administered Note: [facility] bi-d irectional interface ; Source: Other Registry Influenza virus vaccine, injectable, quadrivalent, split virus, preservative free, 3 years or older Fluarix, Flulaval or Fluzone Quad administered Note: Invalid docume nted admin date was . ; Source: Other Provider Afluria Qd administered Note: [facility] bi-directional interface ; Source: Other Registry Afluria Qd administered Note: M [facility] bi-directional interface ; Source: Other Registry Fluzone Quad 6mo or older administered Note: [facility] bi-direct ional interface ; Source: Other Registry Flu (split) (3 yrs or older) administered Note: Invalid documented admin date was . ; Source: Other Provider Afluria Qd administered Note: [facility] bi-directional interface ; Source: Other Registry Afluria Qd administered Note: M [facility] bi-directional interface ; Source: Other Registry Fluzone Quad 6mo or older administered Note: [facility] bi-direct ional interface ; Source: Other Registry Influenza, split virus, trivalent, injectable, preservative free administered Note: [facility] bi-direct ional interface ; Source: Other Registry Influenza, seasonal, injectable, preservative free administered Note: [facility] bi-directional interface ; Source: Other Registry Influenza, split virus, trivalent, injectable, contains preservative administered Note: [facility] bi-direct ional interface ; Source: Other Registry Influenza, seasonal, injectable administe red Note: [facility] bi- directional interface ; Source: Other Registry Influenza, split virus, trivalent, injectable, contains preservative administered Note: [facility] bi-direct ional interface ; Source: Other Registry Influenza, seasonal, injectable administe red Note: [facility] bi- directional interface ; Source: Other Registry Influenza, split virus, trivalent, injectable, contains preservative administered Note: [facility] bi-direct ional interface ; Source: Other Registry Influenza, seasonal, injectable administe red Note: [facility] bi- directional interface ; Source: Other Registry tetanus toxoid, reduced diphtheria toxoid, and acellular pertussis vaccine, adsorbed administered Note: [facility] bi-direct ional interface ; Source: Other Registry Engerix-B administered Note: [facility] bi-d irectional interface ; Source: Other Registry Engerix-B administered Note: [facility] bi-d irectional interface ; Source: Other Registry Engerix-B administered Note: [facility] bi-d irectional interface ; Source: Other Registry Havrix administered Note: [facility] bi-d irectional interface ; Source: Other Registry Influenza, split virus, trivalent, injectable, contains preservative administered Note: [facility] bi-direct ional interface ; Source: Other Registry Influenza, seasonal, injectable administe red Note: [facility] bi- directional interface ; Source: Other Registry Havrix administered Note: [facility] bi-d irectional interface ; Source: Other Registry Payers Payer name Insurance type Covered green party ID Authoriza tijosé miguel(s) Medicare NGS MB [id number] [place] [id number] Social History Type Description Quantity Date Captured Comments Alcohol Use Details Unknown Caffeine Use Details Unknown Tobacco Use Status No Information Smoking Status No Information Sex Female Chief Complaint And Reason For Visit No Information Reason For Referral Reason For Referral No Information Plan Of Treatment Date Type Action Status Goal Lifestyle education regardin g diet completed Goal Lifestyle education regardin g diet completed Goal Lifestyle education regardin g diet completed Goal Lifestyle education regardin g diet completed Goal Lifestyle education regardin g diet completed Goal Lifestyle education regardin g diet completed Goal Lifestyle education regardin g diet completed Goal Lifestyle education regardin g diet completed Goal Lifestyle education regardin g diet completed Goal Lifestyle education regardin g diet completed Goal Lifestyle education regardin g diet completed Goal Lifestyle education regardin g diet completed Referral Ordered: PT/INR, Whole Blood Appointment date/timeframe: 04/19/2023 ordered Referral Ordered: CBC, Whole Blood Appointment date/timeframe: 04/19/2023 ordered Referral Ordered: Xray Abdomen; Limited (AP View Only) (KUB) Appointment date/timeframe: 04/15/2021 ordered Referral Ordered: Creatinine Appointment date/timeframe: 10/12/2020 ordered Referral Ordered: CT Abdomen WITHOUT And WITH Contrast Appointment date/timeframe: 10/28/2018 ordered Referral Ordered: EGD With Dilation Appointment date/timeframe: 06/17/2018 ordered Referral Ordered: Cryptosporidium EIA Appointment date/timeframe: -today ordered Referral Ordered: Giardia lamblia Ag, EIA Appointment date/timeframe: -today ordered Referral Ordered: CT Abdomen And Pelvis WITHOUT And WITH Contrast Appointment date/timeframe: 01/13/2018 ordered Referral Ordered: referred to Surgery ordered Referral Ordered: C difficile Toxin Gene MARISABEL Appointment date/timeframe: 12/17/2016 ordered Referral Ordered: BMP Appointment date/timeframe: 12/01/2016 ordered Referral Ordered: AFP, Serum, Tumor Marker Appointment date/timeframe: 12/01/2016 ordered Referral Ordered: CBC Appointment date/timeframe: -today ordered Referral Ordered: PT/INR Appointment date/timeframe: 12/01/2016 ordered Referral Ordered: Hepatic Function Panel Appointment date/timeframe: 12/01/2016 ordered Referral Ordered: Hepatoma Protocol Appointment date/timeframe: -today ordered Referral Ordered: follow-up visit with Mitra Chang MD 6 Months Appointment date/timeframe: 6 Months ordered Referral Ordered: referred to [facility] [employer] counseling on low carb diet; Corrina site ordered Referral Ordered: follow-up visit 1 Year Appointment date/timeframe: 1 Year ordered Referral Ordered: follow-up visit with Chris Huff MD (or me) for F/U fatty liver 1 Year Appointment date/timeframe: 1 Year ordered Referral Ordered: [place] Liver Appointment date/timeframe: 03/12/2014 ordered History Of Present Illness Encounter Date Complaint History Of Prese nt Illness GI Symptoms or Concerns This is a 64-year-old woman with biopsy-proven diagnosis of fatty liver disease liver disease. She presents today for follow up. Although liver appeared nodular during cholecystectomy, liver biopsy in 2011 showed only stage II fibrosis. Patient had a FibroScan since then that showed progression of liver disease into stage 3 fibrosis. Her platelet count is at low limit normal at 163,000. She had an EGD in 05/2018 that was normal including esophageal biopsies. No endoscopic evidence of portal hypertension. US 09/2024 showed no focal liver lesion. CBD mildly dilated at 11 mm s/p lap giulia plus patient is on narcotics. CT earlier this month showed stable 1.6 x 1.4 cm partially calcified splenic artery aneurysm. She was seen by Vascular Surgery - recommended CT in two years. She is diabetic and markedly obese with a BMI of 48-51. Her A1C is 11.1%. She is on Metformin, Ozempic, and Insulin. The patient does not drink any alcohol. Hepatitis C testing is negative. She's vaccinated against hepatitis A and B. She has numerous psychological issues and is seeing a psychiatrist and is being managed for depression and anxiety. She was hospitalized for psych-related issues in the past. She was diagnosed with C. Diff infection in 2018 triggered by antibiotic use. GI Symptoms or Concerns This is a 63-year-old woman with biopsy-proven diagnosis of fatty liver disease liver disease. She presents today for follow up. Although liver appeared nodular during cholecystectomy, liver biopsy in 2011 showed only stage II fibrosis. Patient had a FibroScan since then that showed progression of liver disease into stage 3 fibrosis. Her platelet count is at low limit normal. She had an EGD in 05/2018 that was normal including esophageal biopsies. No endoscopic evidence of portal hypertension. US 10/2023 showed no focal liver lesion. CBD mildly dilated s/p lap giulia. CT earlier this year showed stable 1.5 cm partially calcified splenic artery aneurysm. She is diabetic and markedly obese with a BMI of 48-51. Her A1C is 9%. She is on Metformin. She has a follow up visit with PCP later on today. The patient does not drink any alcohol. Hepatitis C testing is negative. She's vaccinated against hepatitis A and B. She has numerous psychologic issues and is seeing a psychiatrist and is being managed for depression and anxiety. She was hospitalized for psych-related issues in the past. She was diagnosed with C. Diff infection in 2018 triggered by antibiotic use. GI Symptoms or Concerns This is a 62-year-old woman with biopsy-proven diagnosis of fatty liver disease liver disease. She presents today for follow up. Despite a nodular appearing liver noted during cholecystectomy and despite mild splenomegaly, liver biopsy in 2011 showed only stage II fibrosis. Patient had a FibroScan since then that showed progression of liver disease into stage 3 fibrosis. Her platelet count remains normal at 166,000. She had an EGD in 05/2018 that was normal including esophageal biopsies. No endoscopic evidence of portal hypertension. US 10/2022 showed no focal liver lesion. CBD mildly dilated s/p lap giulia. CT 09/2019 showed stable 1.5 cm splenic artery aneurysm. She is diabetic and markedly obese with a BMI of 48-51. The patient does not drink any alcohol. Hepatitis C testing is negative. She's vaccinated against hepatitis A and B. She has numerous psychologic issues and is seeing a psychiatrist and is being managed for depression and anxiety. She was hospitalized for psych-related issues in the past. She was diagnosed with C. Diff infection in 2018 triggered by antibiotic use. GI Symptoms or Concerns This is a 61-year-old woman with biopsy-proven diagnosis of fatty liver disease liver disease. She presents today for follow up. Despite a nodular appearing liver noted during cholecystectomy and despite mild splenomegaly, liver biopsy in 2011 showed only stage II fibrosis. Patient had a FibroScan since then that showed progression of liver disease into stage 3 fibrosis. Her platelet count remains normal at 193,000. She had an EGD in 05/2018 that was normal including esophageal biopsies. No endoscopic evidence of portal hypertension. US 10/2021 showed no focal liver lesion. CBD mildly dilated s/p lap giulia. CT 09/2019 showed stable 1.5 cm splenic artery aneurysm. She is diabetic and markedly obese with a BMI of 51. The patient does not drink any alcohol. Hepatitis C testing is negative. She's vaccinated against hepatitis A and B. She has numerous psychologic issues and is seeing a psychiatrist and is being managed for depression and anxiety. She was hospitalized for psych-related issues in the past. She was diagnosed with C. Diff infection in 2018 triggered by antibiotic use. GI Symptoms or Concerns Ms. Rambo purdy is having a clinic visit today to discuss abdominal pain. The pain is new since February. It is intermittent. It is in a band-like fashion in the area around her bellybutton. It comes in waves and can last minutes. One time she had diarrhea. It is not associated with fevers, nausea, or vomiting. Food does not seem to affect it. When she has it, nothing seems to make it better or worse. She has noticed that stress, for instance this morning, does seem to provoke. In general, her bowel movements are fine. She has been to the ER recently for different complaints. Evaluation has not shown any clear reason for discomfort or other problem she is having. She is not really on any different medications. She may have taken a few extra doses of narcotics recently. She had a colonoscopy about 4 years ago that was unremarkable. She has a known hernia. The pain is not every day. GI Symptoms or Concerns This is a 60-year-old woman with biopsy-proven diagnosis of fatty liver disease liver disease. She consents today for telephone follow up. Despite a nodular appearing liver noted during cholecystectomy and despite mild splenomegaly, liver biopsy in 2011 showed only stage II fibrosis. Patient had a FibroScan since then that showed progression of liver disease into stage 3 fibrosis. Her platelet count remains normal at 193,000. She had an EGD in 05/2018 that was normal including esophageal biopsies. No endoscopic evidence of portal hypertension. US 09/2020 showed no focal liver lesion. CBD mildly dilated secondary to prior giulia. CT 09/2019 showed stable 1.5 cm splenic artery aneurysm. She is diabetic and markedly obese with a BMI of 51. The patient does not drink any alcohol. Hepatitis C testing is negative. She's vaccinated against hepatitis A and B. She has numerous psychologic issues and is seeing a psychiatrist and is being managed for depression and anxiety. She was hospitalized for psych-related issues in the past. She was diagnosed with C. Diff infection in 2018 triggered by antibiotic use. Followup stool test showed complete resolution of infection. GI Symptoms or Concerns This is a 60-year-old woman with biopsy-proven diagnosis of fatty liver disease liver disease. She consents today for telephone follow up. Despite a nodular appearing liver noted during cholecystectomy and despite mild splenomegaly, liver biopsy in 2011 showed only stage II fibrosis. Patient had a FibroScan since then that showed progression of liver disease into stage 3 fibrosis. Her platelet count remains normal at 193,000. She had an EGD in 05/2018 that was normal including esophageal biopsies. No endoscopic evidence of portal hypertension. US 03/2020 showed no focal liver lesion. CT 09/2019 showed stable 1.5 cm splenic artery aneurysm. She is diabetic and markedly obese with a BMI of 56. The patient does not drink any alcohol. Hepatitis C testing is negative. She's vaccinated against hepatitis A and B. She has numerous psychologic issues and is seeing a psychiatrist and is being managed for depression and anxiety. She was hospitalized for psych-related issues in the past. She was diagnosed with C. Diff infection in 2018 triggered by antibiotic use. Followup stool test showed complete resolution of infection. GI Symptoms or Concerns This is a 59-year-old woman with biopsy-proven diagnosis of fatty liver disease liver disease. Despite a nodular appearing liver noted during cholecystectomy and despite mild splenomegaly, liver biopsy in 2011 showed only stage II fibrosis. Patient had a FibroScan since then that showed progression of liver disease into stage 3 fibrosis. Her platelet count remains normal at over 200,000. She had an EGD in 05/2018 that was normal including esophageal biopsies. No endoscopic evidence of portal hypertension. She is diabetic and markedly obese with a BMI of 56.US 03/2019 showed no focal liver lesion. And CT 09/2019 showed stable 1.5 cm splenic artery aneurysm. She has numerous psychologic issues and is seeing a psychiatrist and is being managed for depression and anxiety. She was hospitalized for psych-related issues in the past. Hepatitis C testing is negative. She's vaccinated against hepatitis A and B. The patient does not drink any alcohol at this time. In the past, she has drunk some alcohol but has never been a very heavy drinker.She was diagnosed with C. Diff infection in 2018 triggered by antibiotic use. Followup stool test showed complete resolution of infection. GI Symptoms or Concerns This is a 58-year-old woman with biopsy-proven diagnosis of fatty liver disease liver disease. Despite a nodular appearing liver noted during cholecystectomy and despite mild splenomegaly, liver biopsy in 2012 showed only stage II fibrosis. Patient had a fibroscan since then that showed progression of liver disease into stage 3 fibrosis. Her platelet count remains normal at over 200,000. She had an EGD in 05/2018 that was normal including esophageal biopsies. No endoscopic evidence of portal hypertension. She is diabetic and markedly obese with a BMI of 56.US 03/2019 showed no focal liver lesion. She has numerous psychologic issues and is seeing a psychiatrist and is being managed for depression and anxiety. She was hospitalizated for psych-related issues in the past. Hepatitis C testing is negative. She's vaccinated against hepatitis A and B. The patient does not drink any alcohol at this time. In the past, she has drunk some alcohol but has never been a very heavy drinker.She was diagnosed last year with C. Diff infection triggered by antibiotic use. Followup stool test showed complete resolution of infection. GI Symptoms or Concerns This is a 58-year-old woman with biopsy-proven diagnosis of fatty liver disease liver disease. Despite a nodular appearing liver noted during cholecystectomy and despite mild splenomegaly, liver biopsy in 2011 showed only stage II fibrosis. Patient had a fibroscan since then that showed progression of liver disease into stage 3 fibrosis. Her platelet count remains normal at over 200,000. She is diabetic and markedly obese with a BMI of 56.US 03/2018 showed no focal liver lesion. She had another follow up US last week and I dont have those results yet. She has numerous psychologic issues and is seeing a psychiatrist and is being managed for depression and anxiety. She was hospitalizated for psych-related issues in the past. Hepatitis C testing is negative. She's vaccinated against hepatitis A and B. The patient does not drink any alcohol at this time. In the past, she has drunk some alcohol but has never been a very heavy drinker.She was recently seen my colleagues at [facility] for GI symptoms, specifically esophageal dysphagia. She had an EGD in 05/2018 that was normal including esophageal biopsies. No endoscopic evidence of portal hypertension. She was diagnosed last year with C. Diff infection triggered by antibiotic use. Followup stool test showed complete resolution of infection. GI Symptoms or Concerns Sonia pres ents today for followup. She was first seen by myself on March 24. At that time, her chief complaint was esophageal dysphagia. She has a longstanding history of heartburn. She has side effects to many medications, and had tried Tums and ranitidine; however, stopped due to side effects. On June 17, she underwent an upper GI endoscopy by myself. Her esophagus, stomach, and duodenum were normal. Gastric and esophageal biopsies were normal. I had recommended that she start pantoprazole. She states she did not start the pantoprazole, but instead took some of a friend's omeprazole. She took this for 4 days, and felt fullness in her right ear and loose stools, and therefore, she stopped this medication.She continues to have intermittent heartburn. She states she has not had any further episodes of swallowing difficulties. She would prefer to treat her reflux with diet and lifestyle modifications, and not take medications, as she seems to get side effects from almost GI Symptoms or Concerns This is a 58-year-old woman with biopsy-proven diagnosis of fatty liver disease liver disease. Despite a nodular appearing liver noted during cholecystectomy and despite mild splenomegaly, liver biopsy in 2011 showed only stage II fibrosis. Patient had a fibroscan since then that showed progression of liver disease into stage 3 fibrosis. Her platelet count remains normal at over 200,000. She is diabetic and markedly obese with a BMI of 56.US 03/28/2018 showed no focal liver lesion. Recent colonoscopy for colon cancer screening was unrevealing. She has numerous psychologic issues and is seeing a psychiatrist and is being managed for depression and anxiety. She was hospitalizated for psych-related issues in the past. Hepatitis C testing is negative. She's vaccinated against hepatitis A and B. The patient does not drink any alcohol at this time. In the past, she has drunk some alcohol but has never been a very heavy drinker.She was recently seen my colleagues at [facility] for GI symptoms, specifically esophageal dysphagia. Dr Fisher recommended an EGD which is scheduled 05/2018. She was recently diagnosed with C. Diff infection triggered by antibiotic use. Followup stool test showed complete resolution of infection. GI Symptoms or Concerns Sonia ents today for evaluation of esophageal dysphagia. She states this is a new symptom for her. She was last seen in our clinic on March 04. She states the first time she had trouble with dysphagia was later that evening. She had a second episode on March 22. On the first episode, she was eating a donut and she felt it get stuck. She states it eventually passed on its own, however, she had significant pain afterwards. This took about 24 hours to resolve. Her second episode occurred on March 22, and she states she was eating a piece of steak, which got stuck. Again, this passed on its own, but she had discomfort about 1 to 2 hours after.She has a longstanding history of heartburn, occurring once or twice a week. She treats this with Tums or other eauw-ylx-gnljyha antacids. She was instructed to take ranitidine, and she took this for 2 to 3 days, however, stopped due to dizziness. She does not feel she has ever been on a proton pump inhibitor. GI Symptoms or Concerns This is a 57-year-old woman who presents in followup. She has a history of NAQVI and is followed by my colleague Dr. Chang. She is at least stage 3 fibrosis on FibroScan. She has been up-to-date on the hepatoma protocol. She has had more recent issues with Clostridium difficile infection and finished treatment with fidaxomicin in January. She had dizziness with both metronidazole and vancomycin, hence the medication change. She is continued on a probiotic since finishing antibiotics. She reports that her last stool testing was negative for C. diff infection through her primary care office. She still has some softer stools in general and certain foods can cause diarrhea, but overall she feels better. There can be some pain on and off in the bilateral upper quadrants of her abdomen in underneath the ribs. This is far better, however, than it was when she was first diagnosed. She presents with concern about an umbilical hernia that was seen on a CT scan in 2014. It was not report GI Symptoms or Concerns Sonia ents today for followup of the C. diff diarrhea. She was last seen in our clinic on January 11. At that time, a C. diff testing was ordered. She had this done at an outside facility, and these results still have not been sent to our clinic, but per Dr. Bertrand' note, her C. diff was positive. She was initially started on metronidazole; however, she had nausea and dizziness. She was, therefore, switched to vancomycin, but she continued to have dizziness, and therefore, she was switched to fidaxomicin. She started the fidaxomicin on January 21.Currently, she has had some improvement in her symptoms. She describes 4 to 6 loose bowel movements per day without blood. She denies any abdominal pain, nausea, vomiting, decreased appetite, fevers, or weight loss. GI Symptoms or Concerns This is a pleasant 57-year-old female with past medical history significant for nonalcoholic fatty liver disease, prior cholecystectomy, diabetes, severe anxiety and depression (previous hospitalization for psych-related issues in the past), presenting to clinic today to discuss abdominal pain and diarrhea. The patient is followed by Dr. Chang for fatty liver disease.The patient states that approximately a hfkn-sjg-n-half ago, she began experiencing an acute onset of lower abdominal pain. She did not have any associated diarrhea, nausea, vomiting, fevers or chills at that time. She reports being seen at the [facility], at which time a CT scan showed a hernia, but otherwise was unremarkable. I do not have a copy of this report. Her symptoms seemed to improve spontaneously, but then 4 days ago, her abdominal pain returned along with diarrhea. The patient reports that diarrhea is very frequent, occurring every couple hours. The stool is semi-formed to GI Symptoms or Concerns This is a 57-year-old woman with biopsy-proven diagnosis of fatty liver disease liver disease. Despite a nodular appearing liver noted during cholecystectomy and despite mild splenomegaly, liver biopsy in 2011 showed only stage II fibrosis. Patient had a fibroscan since then that showed progression of liver disease into stage 3 fibrosis. Her platelet count remains normal at over 200,000. She is diabetic and markedly obese with a BMI of 56.Earlier last year, patient has lost almost 20 lb, however gained 15 lb back towards the second half of last year. Recent US 12/16/2017 showed no focal liver lesion. Recent colonoscopy for colon cancer screening was unrevealing. She has numerous psychologic issues and is seeing a psychiatrist and is being managed for depression and anxiety. She was hospitalizated for psych-related issues in the past. Hepatitis C testing is negative. She's vaccinated against hepatitis A and B. The patient does not drink any alcohol at this time. In the past, she has drunk some alcohol but has never been a very heavy drinker.Patient reports new onset epigastric pain associated with nausea and vomiting. Her psychology department chair who overseas here care had similar GI symptoms that were self-limited. Patient went to seek medical attention in the ER where she underwent CT abdomen with IV contrast. That showed no acute changes, but small calicified splenic aneurysm. Patient was prescribed pantoprazole 40 mg daily. She has not started taking the medicine yet concerning the side effects. GI Symptoms or Concerns GI Symptoms or Concerns This is a 57-year-old woman with biopsy-proven diagnosis of fatty liver disease. Despite a nodular appearing liver noted during cholecystectomy and despite mild splenomegaly, liver biopsy in 2011 showed only stage II fibrosis. Patient had a fibroscan since then that showed progression of liver disease into stage 3 fibrosis. Her platelet count remains normal at over 200,000. She is diabetic and markedly obese with a BMI of 55.Earlier this year, patient has lost almost 20 lb, however gained 15 lb back towards the second half of the year. Recent US 06/2017 showed no focal liver lesion. Recent colonoscopy for colon cancer screening was unrevealing. She has numerous psychologic issues and is seeing a psychiatrist and is being managed for depression and anxiety. She has had hospitalizations for this problem in the past. Hepatitis C testing is negative. She's vaccinated against hepatitis A and B. The patient does not drink any alcohol at this time. In the past, she has drunk some alcohol but has never been a very heavy drinker. GI Symptoms or Concerns This is a 56-year-old woman with biopsy-proven diagnosis of fatty liver disease. Despite a nodular appearing liver noted during cholecystectomy and despite mild splenomegaly, liver biopsy in 2011 showed only stage II fibrosis. Patient had a fibroscan since then that showed progression of liver disease into stage 3 fibrosis. Her platelet count remains normal at over 200,000. She is diabetic and markedly obese with a BMI of 52.Since last time I saw the patient, she has lost almost 20 lb. She has followed low carb diet which resulted in weight loss. As the result, recent labs showed completed normalization of AST/ALT - which were mildly elevated in the past. Recent 12/2016 showed no focal liver lesion. She has numerous psychologic issues and is seeing a psychiatrist and is being managed for depression and anxiety. She has had hospitalizations for this problem in the past. Hepatitis C testing is negative. She's vaccinated against hepatitis A and B. The patient does not drink any alcohol at this time. In the past, she has drunk some alcohol but has never been a very heavy drinker. GI Symptoms or Concerns This is a 56-year-old woman with biopsy-proven diagnosis of fatty liver disease. Despite a nodular appearing liver noted during cholecystectomy and despite mild splenomegaly, liver biopsy in 2011 showed only stage II fibrosis. Patient had a fibroscan since then that showed progression of liver disease into stage 3 fibrosis. Her platelet count remains normal at over 200,000. She is diabetic and markedly obese with a BMI of 57.She has numerous psychologic issues and is seeing a psychiatrist and is being managed for depression and anxiety. She has had hospitalizations for this problem in the past.Lab work continues to show normal albumin and bilirubin as well as INR. Platelet count is normal. She has mild transaminase elevations only, and a normal alkaline phosphatase. Hepatitis C testing is negative. She's vaccinated against hepatitis A and B. The patient does not drink any alcohol at this time. In the past, she has drunk some alcohol but has never been a very heavy drinker. She still does have problems and consumes a large amount of ice cream.She has never had any jaundice, ascites, encephalopathy or gastrointestinal bleeding. GI Symptoms or Concerns This is a 55-year-old woman with biopsy-proven diagnosis of fatty liver disease. Despite a nodular appearing liver noted, during cholecystectomy and despite mild splenomegaly, liver biopsy in 2011 showed only stage II fibrosis. Patient had a fibriscan since then that showed progression of liver disease into stage 3 fibrosis. Her platelet count remains normal at over 200,000. She is diabetic and markedly obese with a BMI of 57.She has numerous psychologic issues and is seeing a psychiatrist and is being managed for depression and anxiety. She has had hospitalizations for this problem in the past.Lab work continues to show normal albumin and bilirubin as well as INR. Platelet count is normal. She has mild transaminase elevations only, and a normal alkaline phosphatase. Hepatitis C testing is negative. She's vaccinated against hepatitis A and B. The patient does not drink any alcohol at this time. In the past, she has drunk some alcohol but has never been a very heavy drinker. She still does have problems and consumes a large amount of ice cream.She has never had any jaundice, ascites, encephalopathy or gastrointestinal bleeding. Liver Symptoms or Concerns This 54-year-old woman returns accompanied by her immigration case manager for her mental health issues. It was very supportive, here for followup of nonalcoholic fatty liver disease. She has a history of schizoaffective disorder, anxiety, hypertension, hyperlipidemia, morbid obesity, sleep apnea, restless legs and other issues as detailed in the past medical history template. She also has type 2 diabetes.She had been followed by Dr. Huff for many years, and that I met her last February for the first time. In the past, he had presumed that she had cirrhosis based on imaging, but liver biopsy 11 years ago showed fatty liver disease. She apparently had another biopsy in followup that she remembers showed stage II fibrosis. Today, FibroScan was performed with score of 12 pKa, which is F3 score. When we discussed this, she became quite distraught, making comments about being on the way to cirrhosis, feeling that she should just give up because she has been unable to lose weight, and feel abdulaziz Liver Symptoms or Concerns The s ymptoms began 10 years ago and generally lasts 10 Years. The symptoms are reported as being moderate. The symptoms occur NA. The location is liver. Aggravating factors include diet. Relieving factors include NA. She states the symptoms are chronic. This 53-year-old woman returns for followup of nonalcoholic fatty liver disease, accompanied by her mental health dormitory counselor. She has been followed with Dr. Huff, and I did discuss reason why it is more difficult to obtain a followup appointment with him since he has cut back his work schedule somewhat. She has a history of schizoaffect of disorder somewhat complicating assessment today. She was hospitalized here at [facility] for mental health issues in late January, and is having some GI side effects she attributes to her newest medication lurasidone (Latuda). She also has a history of anxiety, hyperlipidemia, hypertension, morbid obesity, restless leg syndrome, sleep apnea and anemia. She is status post cholecystectomy. P Functional Status Date Functional Assessmen t No Information Instructions Date Instruction Additional Infor saeid Lifestyle education regarding di et Related to Dietary counseling and surveillance Lifestyle education regarding di et Related to Dietary counseling and surveillance Gastroesophageal Reflux Disease Related to Gastroesophageal reflux disease without esophagitis Lifestyle education regarding di et Related to Dietary counseling and surveillance Lifestyle education regarding di et Related to Dietary counseling and surveillance She will continue he r probiotic for another month. I have advised that she call our office if there is worsening abdominal pain or diarrhea to warrant repeat testing for Clostridium difficile.Regarding her epigastric and chest symptoms, I recommend a trial of ranitidine 150 mg twice daily. I would recommend against a proton pump inhibitor as it can increase the risk of recurrent C. diff infection. I will follow up with her again in 1 month to review her progress on the medication. If she has ongoing dysphagia or other epigastric or chest symptoms, we would consider endoscopy at the hospital, which would likely be with general anesthesia. Otherwise, if symptoms improve, we could consider weaning off of ranitidine as tolerated. However, it should be safe in the group home and would carry minimal increased risk of C. diff, unlike proton pump inhibitors.I do not recommend any further evaluation or treatment for her known umbilical hernia since it is asymptomatic at present. Related to Loose stools Lifestyle education regarding di et Related to Dietary counseling and surveillance Start a probiotic, a nd continue it for 2 weeks after you complete the antibiotic. Related to C. difficile diarrhea Lifestyle education regarding di et Related to Dietary counseling and surveillance Lifestyle education regarding di et Related to Dietary counseling and surveillance Lifestyle education regarding di et Related to Dietary counseling and surveillance Lifestyle education regarding di et Related to Dietary counseling and surveillance Lifestyle education regarding di et Related to Dietary counseling and surveillance Ultrasound Liver Lifestyle education regarding di et Related to Dietary counseling and surveillance Ultrasound Liver Thanks for letting u s follow her in our [facility]. Please see my suggestions below, and feel free to call if questions or concerns. Related to Non-alcoholic Fatty Liver Non-alcoholic fatty liver Relate d to Non-alcoholic Fatty Liver Insulin Resistance Diet Foldbettye Marcelino elated to Non-alcoholic Fatty Liver Exercise as ayou are able Relate d to Non-alcoholic Fatty Liver Berries, vegies, nut s, egg/tuna/chicken salads are healthy snacks Related to Non-alcoholic Fatty Liver Try CarbSmart ice cr eam treats, Emelina has no sugar vanilla ice cream Related to Non-alcoholic Fatty Liver Nerissa's pasta d oes not spike insulin reaction, and tastes good Related to Non-alcoholic Fatty Liver Might try Atkins fro rick meals for convenience Related to Non-alcoholic Fatty Liver Lifestyle education regarding di et Related to Dietary surveillance and counseling Try to limit sweets, bread/pasta/potatoes/rice, etc Related to Non-alcoholic Fatty Liver Thanks for letting a s follow her through our [facility]. Please see my suggestions in the order section, feel free to call me with any questions or concerns. Related to Non-alcoholic Fatty Liver Non-alcoholic fatty liver Relate d to Non-alcoholic Fatty Liver Assessments Type Assessment Date No Information Patient Care Teams Name Effective Dates (start - stop) Status Members No Information
[2025-07-06 22:30] VITALS: BP 134/82; PULSE 100; RESP 16; TEMP 36.4; O2SAT 98; BMI 60.5
[2025-07-06 22:40] VITALS: RESP 18; O2SAT 99
--- NOTE | 2025-07-06 22:41 | ED.GENADULT ---
HPI - General Adult General Date Seen: 07/06/25 Chief complaint: Unspecified Complaint, Adult Stated complaint: R hip pain Time Seen by Provider: 07/06/25 22:18 Source: patient, EMS, RN notes reviewed and old records reviewed Mode of arrival: EMS Limitations: no limitations History of Present Illness HPI narrative: Sonia is a 65-year-old female living independently in [place] with a history of multiple medication allergies, chronic pain of the right hip and buttock as well as her knees, history of chronic lumbar pain, history of morbid obesity, history of diabetes and diabetic neuropathy who comes to the [facility] via EMS after experiencing significant acute pain in her right hip. Patient states that she has pain in both hips and has been experiencing that. Tonight she was trying to clear out an area in her house so that she could have a lift chair installed. She states that she had gone into the bathroom and stepped over some clothes and had a tearing type sensation on the outside of her right hip. Since that time she has had difficulty even walking to the bathroom or getting herself in bed. She called 911 and was able with a walker to walk to the ambulance but since that time notes that she is unable to bear weight. She has not had any fever or chills. She notes occasional pain in her abdomen but it is not there tonight. She notes that she had a recent injection in her right trochanteric bursa on June 25. She is very worried that she tore a muscle in her right leg. She is very worried that she will not be able to stay at home. She does have 2 sons but they are unable to help her tonight. Per patient report she reports liver cirrhosis secondary to fatty liver. Denies history of alcohol use. Related Data Home Medications ?Medication ?Instructions ?Recorded ?Confirmed blood sugar diagnostic (OneTouch 02/03/23 02/03/23 Ultra Test strips) calcium carbonate 600 mg PO DAILY 02/03/23 07/06/25 ibuprofen 400 mg tablet 400 mg PO Q6-8H PRN 02/03/23 07/06/25 metformin 500 mg tablet mg PO 02/03/23 02/08/25 methocarbamol 500 mg tablet 500 mg PO QID 02/03/23 07/06/25 acetaminophen 500 mg tablet 1,000 mg PO Q6H PRN 02/08/25 07/06/25 cholecalciferol (vitamin D3) .Route 02/08/25 02/08/25 insulin glargine 100 unit/mL (3 24 unit subcut QAM 02/08/25 07/06/25 mL) subcutaneous pen (Lantus Solostar U-100 Insulin) ketoconazole 2 % topical cream 1 applic topical BID PRN 02/08/25 07/06/25 metformin 500 mg tablet,extended 500 mg PO DAILY 02/08/25 07/06/25 release 24 hr multivitamin 1 tab PO QAM 02/08/25 02/08/25 oxycodone 5 mg tablet 5 mg PO DAILY PRN 02/08/25 07/06/25 sertraline 25 mg tablet 25 mg PO DAILY 02/08/25 02/08/25 lorazepam 0.5 mg tablet 0.5 mg PO 07/06/25 tirzepatide 2.5 mg/0.5 mL 2.5 mg subcut 07/06/25 subcutaneous pen injector (Roel) Allergies Allergy/AdvReac Type Severity Reaction Status Date / Time ketamine Allergy Severe Verified 02/08/25 07:33 cephalexin Allergy Mild Rash Verified 02/08/25 07:31 gabapentin Allergy Mild Rash Verified 02/08/25 07:31 [id number] Reductase Allergy myalgia Verified 02/08/25 07:31 Inhibitor Sulfa (Sulfonamide Allergy Rash Verified 02/08/25 07:31 Antibiotics) trimethoprim AdvReac Unknown Verified 02/08/25 07:31 aripiprazole (From Abilify) AdvReac restlessnes Verified 02/08/25 07:31 s asenapine (From Saphris) AdvReac Dizziness Verified 02/08/25 07:31 lurasidone (From Latuda) AdvReac restless Verified 02/08/25 07:31 legs metformin AdvReac Diarrhea Verified 02/08/25 07:31 metoprolol AdvReac Anxiety Verified 02/08/25 07:31 metronidazole AdvReac Headache Verified 02/08/25 07:31 risperidone AdvReac psych Verified 02/08/25 07:31 tolterodine AdvReac Dizziness Verified 02/08/25 07:31 triamcinolone (From Kenalog) AdvReac Flushing Verified 02/08/25 07:31 vancomycin AdvReac Headache Verified 02/08/25 07:31 baby powder AdvReac Rash Uncoded 02/08/25 07:31 Review of Systems Const: Denies: fever Eyes: Denies: change in vision ENMT: Denies: neck pain or nasal congestion Cardio: Denies: chest pain Resp: Denies: cough GI: Reports: abdominal pain; Denies: vomiting : Denies: painful urination Musculo: Reports: back pain, extremity pain, joint pain and limited range of motion; Denies: neck pain PFSH PFS Social History Smoking Status: Never smoker Second hand tobacco smoke exposure: No How often do you have a drink containing alcohol: never AUDIT-C Alcohol total score: 0 Non-prescribed substance use: denies use Exam Narrative: Exam Narrative: Alert and oriented. History very challenging as patient does go off on tangents. Frequent interruptions a during discussion. Is providing us with some visit summaries but has taken a marker and blacked out her medical record number and a lot of the emails related to her my chart. Patient is alert and oriented. I suspect mentation is baseline. Face symmetrical. Heart with a regular rate and rhythm and lungs are clear. Abdomen is obese soft nontender. Palpation of the hips without pain. She has pain with palpation over the greater trochanter posterior aspect. I do not palpate any muscular defect. She is able to move her lower extremities. She has some resolving ecchymosis about quarter-sized with resolution of the bruising in the middle but just peripheral residual affect. No erythema noted. During patient's stay we did attempt to have her use bedside commode and this caused her significant pain and needed 2 person assistance. Const: Vital Signs, click to edit/add: Vital Signs - 24 hr 07/06/25 22:30 07/06/25 22:40 07/06/25 23:37 Temperature 97.5 F L Pulse Rate [Right Pulse Oximeter] 100 Respiratory Rate 16 Respiratory Rate [ Right Hip] 18 Blood Pressure [Ri ght Upper Arm] 134/82 Pulse Oximetry 98 98 Oxygen Delivery Me thod Room Air 07/07/25 00:00 Temperature Pulse Rate [Right Pulse Oximeter] Respiratory Rate Respiratory Rate [ Right Hip] 18 Blood Pressure [Ri ght Upper Arm] Pulse Oximetry Oxygen Delivery Me thod Documenting provider has reviewed patient's vital signs: yes Course Course ED Course: Patient noted to have a near fall but no fall tonight which increased her right hip pain. It appears that she will be unable to care for herself. Will obtain CT of the pelvis without contrast. Perhaps we will be able to detect any hematoma secondary to muscle tear as well as look the underlying bony pelvis. Patient is in agreement with this. I do think we will need to admit her with goal of placement in assisted if she is unable to attain ADLs. She is certainly not able to take care for self at this time. Will also check labs to include CBC, comprehensive. Reevaluation(s) Reevaluation #1: Patient given oxycodone 5 mg p.o. for hip pain and ice is also provided for her Vital Signs Vital signs: Initial Vital Signs Temperature 97.5 F L 07/06/25 22:30 Temperature Source Temporal Artery Scan 07/06/25 22:30 Pulse Rate 100 07/06/25 22:30 Respiratory Rate 16 07/06/25 22:30 Blood Pressure 134/82 07/06/25 22:30 Blood Pressure Mean 99 07/06/25 22:30 Blood Pressure Position Sitting 07/06/25 22:30 Pulse Oximetry 98 07/06/25 22:30 Oxygen Delivery Method Room Air 07/06/25 22:30 Vital Signs Temperature 97.5 F L 07/06/25 22:30 Pulse Rate 100 07/06/25 22:30 Respiratory Rate 16 07/06/25 22:30 Blood Pressure 134/82 07/06/25 22:30 Pulse Oximetry 98 07/06/25 22:30 Oxygen Delivery Method Room Air 07/06/25 22:30 Temperature 97.5 F L 07/06/25 22:30 Pulse Rate 100 07/06/25 22:30 Respiratory Rate 18 07/07/25 00:00 Blood Pressure 134/82 07/06/25 22:30 Pulse Oximetry 98 07/06/25 23:37 Oxygen Delivery Method Room Air 07/06/25 22:30 Medications Administered Medications: Discontinued Medications Generic Name Dose Route Start Last Admin Trade Name Freq PRN Reason Stop Dose Admin Oxycodone HCl 5 mg 07/06/25 22:58 07/06/25 23:00 Oxycodone 5 Mg Tablet PO 07/06/25 22:59 5 mg ONCE ONE Administration Medical Decision Making MDM Narrative Medical decision making narrative: 1. Acute on chronic right hip pain-patient noted to have a near fall tonight but did not fall. Patient noted to have morbid obesity history of chronic pain. Has pain over the right hip with reassuring noncontrast CT of the pelvis. May need MRI if not improving. Certainly unable to take care of herself tonight. Pain has been controlled with oxycodone 5 mg. We have also provided ice for her right hip. 2. History of sleep apnea-patient suggests severe apnea. Unfortunately no one is available to go and get her CPAP from [place]. May have to use oxygen tonight. Vital signs have been stable here in the [facility] emergency room 3. Diabetes-glucose elevated at 251. Will give 6 units regular insulin. 4. Disposition-admit under the care of [facility] hospitalist, Dr Fajardo. Observation. May need assisted or extended care placement. Note lab data including white count, creatinine electrolytes all within normal limits. Patient did request a copy of her pelvis CT. Very concerned about privacy. Medical Records Medical records reviewed: Yes I reviewed the patient's medical records Medical records narrative: Multiple records reviewed from [facility] regarding orthopedic discomfort, recent Toradol injection, MRI of the lumbar spine with spondylosis. MRI of the right hip does show a lateral facet of the greater trochanter with edema likely representing calcis epic tendinitis/bursitis. Lab Data Lab results reviewed: Yes I reviewed the patient's lab results Labs: Lab Results 07/06/25 Range/Units 23:11 WBC 7.25 (4.50-11.00) K/uL RBC 4.45 (4.00-5.20) m/uL Hgb 12.8 (12.0-16.0) gm/dL Hct 37.9 (33.0-51.0) % MCV 85 (80-100) fL MCH 29 (26-34) pg MCHC 34 (32-36) gm/dL RDW Coeff of Julisa 13.8 (11.5-15.5) % Plt Count 176 (140-440) K/uL Neut % (Auto) 62.6 (42.0-72.0) % Lymph % (Auto) 30.3 (20-44) % Long % (Auto) 5.5 (0.0-11.0) % Eos % (Auto) 1.0 (0.0-7.0) % Baso % (Auto) 0.3 (0.0-3.0) % Neut # (Auto) 4.54 (1.7-7.0) K/uL Lymph # (Auto) 2.20 (0.90-2.90) K/uL Long # (Auto) 0.40 (0.00-0.90) K/UL Eos # (Auto) 0.07 (0.00-0.50) K/uL Baso # (Auto) 0.02 (0.00-0.30) K/uL Abs Immat Gran (auto) 0.02 (0.00-0.30) K/uL Imm/Tot Granulo (auto) 0.3 % Sodium 135 (135-149) mmol/L Potassium 4.0 (3.6-5.1) mmol/L Chloride 96 (96-114) mmol/L Carbon Dioxide 29 (20-32) mmol/L Anion Gap 10 (7-15) mEq/L BUN 22 (7-30) mg/dL Creatinine 0.7 (0.5-1.5) mg/dL Estimated Creat Clear 53.91 Estimated GFR 97 ml/min Glucose 251 H (60-115) mg/dL Calcium 9.0 (8.4-10.6) mg/dL Total Bilirubin 0.6 (0.1-1.5) mg/dL AST 34 (12-35) U/L ALT 34 (4-35) U/L Alkaline Phosphatase 110 (40-150) U/L Total Protein 7.5 (6.0-8.3) g/dL Albumin 4.0 (3.3-5.0) g/dL Imaging Data CT of the pelvis: Attestation: I have reviewed the pertinent imaging results. My impression: I do not note any acute findings Radiologist's impression: No acute fracture or dislocation. Mild degenerative changes of the hips, sacroiliac joints, and pubic symphysis. Degenerative changes of the lower lumbar spine. No hip joint effusion. No significant soft tissue swelling. No bowel dilation, free air, or free fluid in the pelvis. No bladder wall thickening. No lymphadenopathy. Hysterectomy. Colonic diverticulosis without evidence of diverticulitis. Rectus diastasis with small fat containing umbilical hernia. IMPRESSION: 1. No acute findings in the pelvis on this noncontrast exam. 2. No acute fracture or dislocation. Mild osseous degenerative changes. Discharge Plan Discharge Clinical Impression: Acute hip pain, Chronic back pain, Chronic hip pain Patient Disposition: Admitted As Observation Condition: Improved
--- OUTSIDE RECORDS SUMMARY | 2025-07-06 23:07 | XMS_ITS ---
Author Name Interface, [id number] lity Address [address] [facility] [address] [place] [address] [facility] Address [address] [facility] [address] [place] [address] Support Name Relationship Address Phone Greg Henry Child Unknown Unavailable Allergies and Adverse Reactions Medication/Group Name Reaction Severity Date Risperidone Analogues 2023 triamcinolone acetonide 08/2018 metronidazole 04/10/2025 Beta-Blockers (Beta-Adrenergic Blocking Agts) 04/10/2025 cephalexin 04/10/2025 gabapentin 04/10/2025 Tolterodine Analogues 2018 Cephalosporins 04/10/2025 Nitroimidazoles 04/10/2025 risperidone 04/25/2024 Biguanides 04/10/2025 metoprolol tartrate 04/10/20 Sulfa (Sulfonamide Antibiotics) 10/11/2023 vancomycin 05/23/2019 talc 10/11/2023 Corticosteroids (Glucocorticoids) 04/10/2025 ketamine 04/10/2025 Kenalog 04/10/2025 Latuda 04/10/2025 Abilify 04/10/2025 Plan Date Type Value 04/10/2026 APPOINTMENT OV 20 MIN 04/02/2026 APPOINTMENT LAB 15 MIN 04/10/2025 APPOINTMENT OV 20 MIN 03/21/2025 APPOINTMENT OV 20 MIN 03/16/2025 APPOINTMENT OV 20 MIN 03/09/2025 APPOINTMENT LAB 15 MIN 04/25/2024 APPOINTMENT OV 20 MIN 04/18/2024 APPOINTMENT LAB 15 MIN 03/28/2024 APPOINTMENT OV 20 MIN 03/21/2024 APPOINTMENT LAB 15 MIN 03/03/2024 APPOINTMENT OV 20 MIN 02/18/2024 APPOINTMENT LAB 10 MIN 11/23/2023 APPOINTMENT OFFICE FU 30 MIN NO TREATMENT 11/23/2023 APPOINTMENT OFFICE FU 30 MIN NO TREATMENT 10/11/2023 APPOINTMENT POST OP 30 MIN 09/10/2023 APPOINTMENT POST OP 30 MIN 08/30/2023 APPOINTMENT SURGERY 2 HR 08/03/2023 APPOINTMENT LAB 10 MIN 08/03/2023 APPOINTMENT NEW PT CONSULT 6 0 MIN 08/03/2023 LAB_ORDER U/S pelvis 11/23/2023 LAB_ORDER Urine culture pa margaret 11/23/2023 LAB_ORDER Urinalysis with Reflex Panel 04/18/2024 LAB_ORDER Immunoglobulin m easurement 04/18/2024 LAB_ORDER Free kappa / mittal bda with K/L ratio, serum 04/18/2024 LAB_ORDER Serum Protein El ectrophoresis (SPEP) 04/18/2024 LAB_ORDER CMP 04/18/2024 LAB_ORDER CBC w/ auto diff 03/09/2025 LAB_ORDER Free kappa / mittal bda with K/L ratio, serum 03/09/2025 LAB_ORDER Immunoglobulin m easurement 03/09/2025 LAB_ORDER Serum Protein El ectrophoresis (SPEP) 03/09/2025 LAB_ORDER CMP 03/09/2025 LAB_ORDER CBC w/ auto diff 04/02/2026 LAB_ORDER Immunoglobulin m easurement 04/02/2026 LAB_ORDER Free kappa / mittal bda with K/L ratio, serum 04/02/2026 LAB_ORDER CBC w/ auto diff 04/02/2026 LAB_ORDER Serum Protein El ectrophoresis (SPEP) 04/02/2026 LAB_ORDER CMP Reason for Visit OV 20 MIN Encounters Date Name 08/03/2023 Anemia 08/03/2023 Depression 08/03/2023 Dysuria 08/03/2023 EIN 08/03/2023 General body pain 08/03/2023 HTN 08/03/2023 Hyperlipidemia 08/03/2023 Malignant melanoma o f skin (disorder) 08/03/2023 Morbid obesity 08/03/2023 Schizophrenia, schiz oaffective, chronic 08/03/2023 Sleep apnea Diagnostic Results Date Type Test Units Lower Limit Upper Limit Result Flag Comments Status Ordered By Specimen Source Lab Address 11/05 [facility] other lab See placement secretary d 11/08 [facility] other lab See placement secretary d 11/22 Color (ua) Yellow FINAL Hafsa Bud [facility] [place], [address] [facility] [address] [place] [phone] Phone: () - 11/22 Appea ying (ua) Clear FINAL Hafsaanabel Rubi [facility] - [place], [address] [place] [address] [address] [place] [phone] 0 Phone: () - 11/22 Gluco se (ua), qual 500.0% Abnor mal FINAL Hafsaanabel Rubi [facility] - [place], [address] [place] [address] [address] [place] [phone] 0 Phone: () - 11/22 Bilir ubin (ua) Negativ e FINAL Hafsaanabel Rubi a [facility] - [place], [address] [place] [address] [address] [place] [phone] 0 Phone: () - 11/22 Urina lysis , aceto ne or keton e chapo s measu remen t Negativ e FINAL Hafsaanabel Rubi [facility] - [place], [address] [place] [address] [address] [place] [phone] 0 Phone: () - 11/22 Speci fic gravi ty (ua) 1.005 1.02 1.025% Abnor mal FINAL Hafsaanabel Rubi [facility] - [place], [address] [place] [address] [address] [place] [phone] 0 Phone: () - 11/22 Blood (ua) Negativ e FINAL Hafsaanabel Rubi [facility] - [place], [address] [place] [address] [address] [place] [phone] 0 Phone: () - 11/22 pH (ua) 5.0 8.0 6.0% FINAL Hafsaanabel [facility] [facility] - [place], [address] [place] [address] [address] [place] [phone] 0 Phone: () - 11/22 Prote in (ua) Negativ e FINAL Hafsaanabel Rubi [facility] - [place], [address] [place] [address] [address] [place] [phone] 0 Phone: () - 11/22 Urobi linog en (ua) 0.2 1.0 0.2% FINAL Hafsaanabel [facility] - [place], [address] [place] [address] 210 [facility] [phone] 0 Phone: () - 11/22 Nitri te (ua) Negativ e FINAL Hafsa Rubi a [facility], [address] [place] [address] 210 [facility] [phone] 0 Phone: () - 11/22 Leuko cyte jerson ase (ua), qual Negativ e FINAL Hafsa Rubi [facility], [address] [place] [phone] Phone: () - 11/22 UA comme nt 1 Dipstic k negativ e- Culture ordered per provide r FINAL Hafsa Rubi [facility], [address] [place] [address] [phone] 0 Phone: () - 11/22 Urine cultu re panel CULTU RE, URINE , ROUTI NE SEE NOTE Abnor mal CULTURE, URINE, ROUTINEMi [employer] bi consultant Number: [id number] est Status: FinalSpec imen Source: UrineSpec imen Quality: AdequateR esult: 50,000-10 0,000 CFU/mL of Klebsiell a pneumonia eK.pneumo niae----- --------- --INT MICAMOX/C LAVULANAT E S <=2AMP/JAMESON LBACTAM S 4CEFAZOLI N NR <=4 2CEFEPI ME S <=0.12CEF TAZIDIME S <=1CEFTRI AXONE S <=0.25CIP ROFLOXACI N S <=0.06GEN TAMICIN S <=1IMIPEN EM S <=0.25LEV OFLOXACIN S <=0.12MER OPENEM S <=0.25NIT ROFURANTO IN I 64PIP/LIGIA OBACTAM S <=4TRIMET HOPRIM/JAMESON LFA S <=20S=Beckie ceptible I=Interme diate R=Resista nt * = Not TestedNR = Not Reported NN = See Therapy CommentsT HERAPY COMMENTSN ote 1:For infection s other than uncomplic ated UTIcaused by E. coli, K. pneumonia e or P. mirabilis :Cefazoli n is resistant if DICKSON >or = 8 mcg/mL.(D istinguis barry susceptib le versus intermedi atefor isolates with DICKSON < or = 4 mcg/mL requiresa dditional testing.) Note 2:For uncomplic ated UTI caused by E. coli,K. pneumonia e or P. mirabilis : Cefazolin issuscept ible if DICKSON <32 mcg/mL and predictss usceptibl e to the oral agents cefaclor, cefdinir, cefpodoxi me, cefprozil , cefuroxim e, cephalexi nand loracarbe f. FINAL Hafsaanabel Farrell [facility], [facility] [address] [facility] [phone] 4 12/18 [facility] other lab See d 04/18 Total prote in g/dL 6.3 8.2 6.9 FINAL Marlene Guzmán * [facility], [facility] [address] [place] [address] [phone] 0 04/18 Album in, SPE g/dL 3.31 5.31 3.97 FINAL Marlene Guzmán * [facility], [facility] [address] [place] [address] [phone] 0 04/18 Alpha -1 globu tony g/dL 0.19 0.42 0.26 FINAL Marlene Guzmán * [facility], [address] [id number] 0 04/18 Alpha -2 globu tony g/dL 0.44 1.03 0.63 FINAL Marlene Guzmán * [facility], [address] [id number] 0 04/18 Beta globu tony g/dL 0.52 1.05 0.95 FINAL Marlene Guzmán * [facility], [address] [id number] 0 04/18 Gamma globu tony g/dL 0.59 1.46 1.10 FINAL Marlene Guzmán * [facility], [facility]0 [facility] [address] [place] [address] [phone] 0 04/18 Elect abiola jackson Gemma in Lab resul t note Previou sly identif ied parapro teins detecte d in gamma region. Were 0.3 and 0.4 gm/dL, now 0.3 and 0.3 gm/dL. Interpr eted and signed by Adrienne Swanson MD on 024 FINAL Marlene Guzmán * [facility], [facility] [address] [place] [address] [phone] 0 04/18 M-spi ke, SPE, g/dL g/dL 0.0 0.0 0.3 High FINAL Marlene Guzmán * [facility], [address] [facility] [address] [id number] 0 04/18 M-spi ke 2, SPE g/dL 0.0 0.0 0.3 High FINAL Marlene Guzmán * [facility], [facility] [address] [place] [address] [id number] 0 04/18 Immun oglob ulin measu remen t IgG, quant mg/dL 610.0 1616.0 946.67 Test performed at [facility] on a Binding Site Optilite Analyzer that uses a turbidime tric method for analysis. Patient testing should not be performed using multiple methodreal gikim due to analytica l variation seen between test methodreal rocha. FINAL Marlene Guzmán * [facility] [address] [place] [address] [phone] 0 04/18 Immun oglob ulin measu remen t IgA, quant mg/dL 61.0 348.0 493.08 High Test performed at [facility] on a Binding Site Optilite Analyzer that uses a turbidime tric method for analysis. Patient testing should not be performed using multiple methodolo gies due to analytica l variation seen between test methodolo gies. FINAL Marlene Stroud [facility] [address] [place] [address] [phone] 0 04/18 Immun oglob ulin measu remen t IgM, quant mg/dL 35.0 242.0 75.62 Test performed at [facility] on a Binding Site Optilite Analyzer that uses a turbidime tric method for analysis. Patient testing should not be performed using multiple methodolo gies due to analytica l variation seen between test methodolo gies. FINAL Marlene Stroud [facility] a [address] [place] [address] [phone] 0 04/18 Free kappa / lambd a with K/L ratio , serum [place] light chain , free, serum , mg/dL mg/dL 0.33 1.94 3.62 High Test performed at [facility] on a Binding Site Optilite Analyzer that uses a turbidime tric method for analysis. Patient testing should not be performed using multiple methodolo gies due to analytica l variation seen between test methodolo gies. FINAL Marlene Guzmán * Jann a [address] [place] [address] [id number] 0 04/18 Free kappa / lambd a with K/L ratio , serum Lambd a light chain , free, serum , mg/dL mg/dL 0.57 2.63 3.13 High Test performed at [facility] on a Binding Site Optilite Analyzer that uses a turbidime tric method for analysis. Patient testing should not be performed using multiple methodolo gies due to analytica l variation seen between test methodolo gies. FINAL Marlene Stroud [facility] [address] [place] [address] [id number] 0 04/18 Free kappa / lambd a with K/L ratio , serum K/L light chain ratio , free, serum 0.26 1.65 1.16% FINAL Marlene Guzmán * [place] [place], [address] [facility] [place] [id number] 0 04/18 CBC w/ auto diff WBC K/uL 3.0 8.9 7.0 FINAL Marlene [facility] - [place], [address] [place] [phone] 0 Phone: () - 04/18 CBC w/ auto diff HGB g/dL 11.3 15.2 14.0 FINAL Marlene Rubi a [facility] - [place], [address] [place] [phone] 0 Phone: () - 04/18 CBC w/ auto diff PLT K/uL 113.0 364.0 164 FINAL Marlene Rubi a [facility] - [place], [address] [place] [phone] 0 Phone: () - 04/18 CBC w/ auto diff Tammy # (ANC) K/uL 1.6 6.6 4.5 FINAL Marlene pagan [facility] - [place], [address] [place] [phone] 0 Phone: () - 04/18 CBC w/ auto diff Tammy % % 43.0 74.0 64.0 FINAL Marlene [facility] - [place], [address] [place] [phone] 0 Phone: () - 04/18 CBC w/ auto diff IG % % 0.0 0.5 0.3 FINAL Marlene Rubi a [facility] - [place], [address] [place] [phone] 0 Phone: () - 04/18 CBC w/ auto diff IG # K/uL 0.0 0.03 0.02 FINAL Marlene Rubi a [facility] - [place], [address] [place] [phone] 0 Phone: () - 04/18 CBC w/ auto diff LY % % 14.0 41.0 28.2 FINAL Marlene [facility] - [place], [address] [place] [phone] 0 Phone: () - 04/18 CBC w/ auto diff MO % % 6.0 15.0 6.0 FINAL Marlene [facility] - [place], [address] [place] [phone] 0 Phone: () - 04/18 CBC w/ auto diff EO % % 0.0 7.0 1.1 FINAL Marlene [facility] - [place], [address] [place] [phone] 0 Phone: () - 04/18 CBC w/ auto diff BA % % 0.0 2.0 0.4 FINAL Marlene [facility] - [place], [address] [place] [id number] 0 Phone: () - 04/18 CBC w/ auto diff LY # K/uL 0.4 3.6 2.0 FINAL Marlene [facility] - [place], [address] [place] [phone] 0 Phone: () - 04/18 CBC w/ auto diff MO # K/uL 0.2 1.3 0.4 FINAL Marlene [facility] - [place], [address] [place] [id number] 0 Phone: () - 04/18 CBC w/ auto diff EO # K/uL 0.0 0.6 0.1 FINAL Marlene [facility] - [place], [address] [place] [id number] 0 Phone: () - 04/18 CBC w/ auto diff BA # K/uL 0.0 0.2 0.0 FINAL Marlene [facility] - [place], [address] [place] [id number] 0 Phone: () - 04/18 CBC w/ auto diff NRBC % #/100W BC 0.0 0.2 0.0 FINAL Marlene [facility] [facility] - [place], [address] [place] [phone] 0 Phone: () - 04/18 CBC w/ auto diff RBC M/uL 3.9 5.1 4.84 FINAL Marlene [facility] - [place], [address] [place] [phone] 0 Phone: () - 04/18 CBC w/ auto diff HCT % 35.0 48.0 40.4 FINAL Marlene Ramirez [facility] - [place], [address] [place] [phone] 0 Phone: () - 04/18 CBC w/ auto diff MCV fL 80.0 104.0 83.5 FINAL Marlene Ramirez [facility] - [place], [address] [place] [id number] 0 Phone: () - 04/18 CBC w/ auto diff MCH pg 26.0 35.0 28.9 FINAL Marlene Guzmán [facility] - [place], [address] [place] [id number] 0 Phone: () - 04/18 CBC w/ auto diff MCHC g/dL 30.0 35.0 34.7 FINAL Marlene Guzmán [facility] - [place], [address] [place] [phone] 0 Phone: () - 04/18 CBC w/ auto diff MPV fL 9.5 13.4 9.7 FINAL Marlene Guzmán [facility] - [place], [address] [place] [id number] 0 Phone: () - 04/18 CBC w/ auto diff RDW % 11.4 16.1 13.80 FINAL Marlene Guzmán [facility] [place], [address] [facility] [place] [phone] 0 Phone: ( 04/18 CMP Album in g/dL 3.5 5.0 4.0 FINAL Marlene Guzmán * [place] [facility] [place], [address] [facility] [id number] 0 04/18 CMP Alkal ine phosp hatas e U/L 36.0 125.0 105 FINAL Marlene Guzmán * [facility], [address] [facility] [id number] 0 04/18 CMP ALT/S GPT U/L 0.0 34.0 35 High FINAL Marlene Guzmán * [facility], [address] [facility] [id number] 0 04/18 CMP AST/S GOT U/L 14.0 36.0 44 High FINAL Marlene Guzmán * [facility], [address] [facility] [id number] 0 04/18 CMP BUN mg/dL 7.0 17.0 21.0 High FINAL Marlene Guzmán * [facility], [address] [facility] [id number] 0 04/18 CMP Calci um mg/dL 8.4 10.2 8.8 FINAL Marlene Guzmán * [facility], [address] [facility] [id number] 0 04/18 CMP Chlor nilson mmol/L 96.0 107.0 106 FINAL Marlene Guzmán * [facility], [address] [facility] [id number] 0 04/18 CMP CO2 mmol/L 22.0 30.0 22 The expected total allowable error for CO2 is 5.6%. We have seen up to 10% differenc e in values if reported at the end of the 96 hour stability window. Please consider the clinical significa nce of a 2.0-2.5 mmol/L lower reported CO2 value if reported at the end of the 96 hour stability window. FINAL Marlene Stroud [facility] [address] [id number] 0 04/18 CMP Creat inine mg/dL 0.66 1.25 0.70 FINAL Marlene Guzmán * [facility], [address] [place] [address] [id number] 0 04/18 CMP GFR estim ate ml/min /1.73m ^2 97.7 GFR is calculate d using the CKD-EPI equation. FINAL Marlene Stroud [facility] [address] [id number] 0 04/18 CMP Gluco se mg/dL 74.0 100.0 267 High FINAL Marlene Stroud [facility] [address] [place] [address] [id number] 0 04/18 CMP Potas sium mmol/L 3.5 5.1 4.0 FINAL Marlene Stroud [facility] [address] [id number] 0 04/18 CMP Sodiu m mmol/L 137.0 145.0 136 Low FINAL Marlene Stroud [facility] [address] [id number] 0 04/18 CMP Bilir ubin, total mg/dL 0.2 1.3 1.0 FINAL Marlene [facility]oud [facility], [address] [facility] [address] [id number] 0 04/18 CMP Total prote in g/dL 6.3 8.2 7.3 FINAL Marlene Guzmán * [place] [place], [address] [facility] [address] [id number] 0 04/18 [facility] other lab See placement secretary d 12/20 [facility] other lab See placement secretary d 12/20 [facility] other lab See placement secretary d 03/09 Free kappa / lambd a with K/L ratio , serum [place] light chain , free, serum , mg/dL mg/dL 0.33 1.94 4.35 High Test performed at [facility] on a Binding Site Optilite Analyzer that uses a turbidime tric method for analysis. Patient testing should not be performed using multiple methodolo gies due to analytica l variation seen between test methodolo gies. FINAL Marlene Guzmán * [facility] , [address] [facility] [address] [id number] 0 03/09 Free kappa / lambd a with K/L ratio , serum Lambd a light chain , free, serum , mg/dL mg/dL 0.57 2.63 3.83 High Test performed at [facility] on a Binding Site Optilite Analyzer that uses a turbidime tric method for analysis. Patient testing should not be performed using multiple methodolo gies due to analytica l variation seen between test methodolo gies. FINAL Marlene Guzmán * [facility] , [address] [facility] [address] [id number] 0 03/09 Free kappa / lambd a with K/L ratio , serum K/L light chain ratio , free, serum 0.26 1.65 1.14% FINAL Marlene Guzmán * [facility] , [address] [facility] [address] [id number] 0 03/09 CMP Album in g/dL 3.5 5.0 3.8 FINAL Marlene Guzmán * [facility] , [address] [facility] [id number] 0 03/09 CMP Alkal ine phosp hatas e U/L 36.0 125.0 106 FINAL Marleneanabel Guzmán * [facility] , [address] [facility] [id number] 0 03/09 CMP ALT/S GPT U/L 0.0 34.0 37 High FINAL Marlene Guzmán * [facility] , [address] [facility] [id number] 0 03/09 CMP AST/S GOT U/L 14.0 36.0 36 FINAL Marlene Guzmán * [facility] , [address] [facility] [id number] 0 03/09 CMP BUN mg/dL 7.0 17.0 18.0 High FINAL Marlene Guzmán * [facility] , [address] [facility] [id number] 0 03/09 CMP Calci um mg/dL 8.4 10.2 8.9 FINAL Marleneanabel Guzmán * [facility] , [address] [facility] [id number] 0 03/09 CMP Chlor nilson mmol/L 96.0 107.0 99 FINAL Marleneanabel Guzmán * [facility] , [address] [facility] [id number] 0 03/09 CMP CO2 mmol/L 22.0 30.0 28 The expected total allowable error for CO2 is 5.6%. We have seen up to 10% differenc e in values if reported at the end of the 96 hour stability window. Please consider the clinical significa nce of a 2.0-2.5 mmol/L lower reported CO2 value if reported at the end of the 96 hour stability window. FINAL Marleneanabel Guzmán * [facility] , [address] [facility] [address] [facility] [id number] 0 03/09 CMP Creat inine mg/dL 0.66 1.25 0.70 FINAL Marleneanabel Guzmán * [facility] , [address] [facility] [address] [facility] [id number] 0 03/09 CMP GFR estim ate ml/min /1.73m ^2 97.1 GFR is calculate d using the CKD-EPI equation. FINAL Marleneanabel Guzmán * [facility] , [address] [facility] [address] [facility] [id number] 0 03/09 CMP Gluco se mg/dL 74.0 100.0 363 Criti sami High FINAL Marlene Guzmán * [facility] , [address] [facility] [address] [facility] [id number] 0 03/09 CMP Potas sium mmol/L 3.5 5.1 3.9 FINAL Marlene Ramirez * [facility] , [address] [facility] [address] [facility] [id number] 0 03/09 CMP Sodiu m mmol/L 137.0 145.0 134 Low FINAL Marleneanabel Guzmán * [facility] , [address] [facility] [address] [facility] [id number] 0 03/09 CMP Bilir ubin, total mg/dL 0.2 1.3 1.1 FINAL Marleneanabel Guzmán * [facility] , [address] [facility] [address] [facility] [id number] 0 03/09 CMP Total prote in g/dL 6.3 8.2 7.3 FINAL Marlene Guzmán * [facility] , [address] [facility] [address] [facility] [id number] 0 03/09 CBC w/ auto diff WBC K/uL 3.0 8.9 7.1 FINAL Marlene Guzmán [place] [facility] [place] [facility] , [address] [place] [id number] 0 03/09 CBC w/ auto diff HGB g/dL 11.3 15.2 14.4 FINAL Marlene Guzmán [place] [facility] [place] [facility] , [address] [place] [id number] 0 03/09 CBC w/ auto diff PLT K/uL 113.0 364.0 179 FINAL Marlene Guzmán [place] [facility] [place] [facility] , [address] [place] [id number] 0 03/09 CBC w/ auto diff Tammy # (ANC) K/uL 1.6 6.6 4.7 FINAL [facility]lene [facility]zmán [facility] [place] [facility] , [address] [place] [id number] 0 03/09 CBC w/ auto diff Tammy % % 43.0 74.0 65.7 FINAL Marlene Guzmán [place] [facility] [place] [facility] , [address] [place] [id number] 0 03/09 CBC w/ auto diff IG % % 0.0 0.5 0.6 High FINAL Marlene Guzmán [place] [facility] [place] [facility] , [address] [place] [id number] 0 03/09 CBC w/ auto diff IG # K/uL 0.0 0.03 0.04 High FINAL Marlene Guzmán [place] [facility] [place] [facility] , [address] [place] [id number] 0 03/09 CBC w/ auto diff LY % % 14.0 41.0 25.8 FINAL Marlene Guzmán [place] [facility] [place] [facility] , [address] [place] [id number] 0 03/09 CBC w/ auto diff MO % % 6.0 15.0 6.2 FINAL Marlene Guzmán [place] [facility] [place] [facility] , [address] [place] [id number] 0 03/09 CBC w/ auto diff EO % % 0.0 7.0 1.1 FINAL Marelne Guzmán [place] [facility] [place] [facility] , [address] [place] [id number] 0 03/09 CBC w/ auto diff BA % % 0.0 2.0 0.6 FINAL Marlene Guzmán [place] [facility] [place] [facility] , [address] [place] [id number] 0 03/09 CBC w/ auto diff LY # K/uL 0.4 3.6 1.8 FINAL Marlene Guzmán [place] [facility] [place] [facility] , [address] [place] [id number] 0 03/09 CBC w/ auto diff MO # K/uL 0.2 1.3 0.4 FINAL Marlene Guzmán [place] [facility] [place] [facility] , [address] [place] [id number] 0 03/09 CBC w/ auto diff EO # K/uL 0.0 0.6 0.1 FINAL Marlene Guzmán [place] [facility] [place] [facility] , [address] [place] [id number] 0 03/09 CBC w/ auto diff BA # K/uL 0.0 0.2 0.0 FINAL Marlene Guzmán [place] [facility] [place] [facility] , [address] [place] [id number] 0 03/09 CBC w/ auto diff NRBC % #/100W BC 0.0 0.2 0.0 FINAL Marlene Guzmán [place] [facility] [place] [facility] , [address] [place] [id number] 0 03/09 CBC w/ auto diff RBC M/uL 3.9 5.1 5.08 FINAL Marlene Guzmán [place] [facility] [place] [facility] , [address] [place] [id number] 0 03/09 CBC w/ auto diff HCT % 35.0 48.0 42.9 FINAL [facility] [place] [facility] , [address] [place] [id number] 0 03/09 CBC w/ auto diff MCV fL 80.0 104.0 84.4 FINAL Marlene Guzmán [facility] [place] [facility] , [address] [place] [id number] 0 03/09 CBC w/ auto diff MCH pg 26.0 35.0 28.3 FINAL Marlene Guzmán [facility] [place] [facility] , [address] [place] [id number] 0 03/09 CBC w/ auto diff MCHC g/dL 30.0 35.0 33.6 FINAL [facility]zm[facility] [place] [facility] , [address] [place] [id number] 0 03/09 CBC w/ auto diff MPV fL 9.5 13.4 9.6 FINAL Marlene Guzmán [place] [facility] [place] [facility] , [address] [place] [id number] 0 03/09 CBC w/ auto diff RDW % 11.4 16.1 14.20 FINAL Marlene Guzmán [facility] , [address] [facility] [id number] 0 03/09 Total prote in g/dL 6.3 8.2 7.1 FINAL Marlene Guzmán * [facility] , [address] [facility] [id number] 0 03/09 Album in, SPE g/dL 3.31 5.31 4.70 FINAL Marlene Guzmán * [facility] , [address] [id number] 0 03/09 Alpha -1 globu tony g/dL 0.19 0.42 0.23 FINAL Marlene Guzmán * [facility] , [address] [id number] 0 03/09 Alpha -2 globu tony g/dL 0.44 1.03 0.52 FINAL Marlene Guzmán * [facility] , [address] [id number] 0 03/09 Beta globu tony g/dL 0.52 1.05 0.80 FINAL Marlene Guzmán * [facility] , [address] [id number] 0 03/09 Gamma globu tony g/dL 0.59 1.46 0.85 FINAL Marlene Guzmán * [facility] , [address] [id number] 0 03/09 Gemma Rodriguez in Lab resul t note Previou sly identif ied parapro teins detecte d in gamma region. Is now 0.3 and 0.4 gm/dL. Interpr eted and signed by Luis Guillermo MD on 025 FINAL Marlene Guzmán * [facility] , [address] [facility] [id number] 0 03/09 M-spi ke, SPE, g/dL g/dL 0.0 0.0 0.3 High FINAL Marlene Guzmán * [facility] , [address] [facility] [id number] 0 03/09 M-spi ke 2, SPE g/dL 0.0 0.0 0.4 High FINAL Marlene Guzmán * [facility] , [address] [facility] [id number] 0 03/09 Immun oglob ulin measu remen t IgG, quant mg/dL 610.0 1616.0 1080.49 Test performed at [facility] on a Binding Site Optilite Analyzer that uses a turbidime tric method for analysis. Patient testing should not be performed using multiple methodolo gies due to analytica l variation seen between test methodolo gies. FINAL Marlene Guzmán * [facility] , [address] [facility] [id number] 0 03/09 Immun oglob ulin measu remen t IgA, quant mg/dL 61.0 348.0 577.26 High Test performed at [facility] on a Binding Site Optilite Analyzer that uses a turbidime tric method for analysis. Patient testing should not be performed using multiple methodolo gies due to analytica l variation seen between test methodolo gies. FINAL Marlene Guzmán * [facility] , [address] [facility] [id number] 0 03/09 Immun oglob ulin measu remen t IgM, quant mg/dL 35.0 242.0 91.00 Test performed at [facility] on a Binding Site Optilite Analyzer that uses a turbidime tric method for analysis. Patient testing should not be performed using multiple methodolo gies due to analytica l variation seen between test methodolo josefina. FINAL Marlene Guzmán * [facility] , [address] [facility] [id number] 0 04/03 [facility] other lab See attache malave Medications Date Name Route Dose Frequency Instructions Start Date End Date Status Fill Status Indication 03/05 Hydrocod one-Acet aminophe n Oral 5 mg-325 mg po prn active 03/02 Cycloben zaprine Oral PRN active 03/04 Miconazo le Topical Powder 2 % prn active 03/02 Multivit amins Oral Tablet daily active 03/02 Calcium Carbonat e Oral daily active 03/05 Acetamin ophen Oral po prn active 03/02 Miscella neous Drug PRN tacrolimus ointment active 03/02 Fluocino nide Topical Cream 0.05 % PRN active 03/02 Omeprazo le Oral Delayed Release Capsule daily active 03/04 Calcium Carbonat e Oral Chewable daily active 04/25 Insulin Regular Human Subcutan eous active 03/02 Sertrali ne Oral daily 75 mg active 03/04 Methocar bamol Oral prn active 03/02 Miconazo le Topical Powder 2 % PRN active 04/25 Semaglut nilson Subcutan eous Pen Injector weekly active 03/04 Metformi n Oral bid active 03/02 Ketocona zole Topical Cream 2 % PRN active 06/11 Fluocino nide Topical Gel 0.05 % Topical 1.0 UNIT as directed 2018 active 06/11 Hydroxyz ine HCl Oral PO 1.0 TABLE T(S) Q4-6H PRN 2018 active Problems Diagnosis Status Date of Diagnosis Resolution Date Monoclonal gammopathy of unc ertain significance (disorder) Active Work-up, hem/onc Active Malignant melanoma of skin (disorder) Active Depression Active Sleep apnea Active Schizophrenia, schizoaffective, chronic Active HTN Active Hyperlipidemia Active Morbid obesity Active Anemia Active EIN Active Dysuria Active Diabetes mellitus type II Active Cirrhosis of liver (disorder) Active General body pain Active Vital Signs Date Type Value 08/03/2023 Intravascular Systolic 110 08/03/2023 Intravascular Diastolic 70 08/03/2023 Body Temperature 98.60 08/03/2023 Heart Beat 48.00 08/03/2023 Respiratory Rate 16.00 08/03/2023 BSA 2.36 08/03/2023 Pain Scale 4.00 08/03/2023 Weight 295.60 08/03/2023 Height 66.00 08/03/2023 BMI 47.71 08/03/2023 Oxygen Saturation 98.00 10/11/2023 BMI 47.71 10/11/2023 BSA 2.36 10/11/2023 Height 66.00 10/11/2023 Weight 295.60 10/11/2023 Pain Scale 0.00 10/11/2023 Intravascular Systolic 128 10/11/2023 Intravascular Diastolic 80 10/11/2023 Respiratory Rate 16.00 10/11/2023 Heart Beat 78.00 10/11/2023 Body Temperature 98.10 10/11/2023 Oxygen Saturation 97.00 11/23/2023 Weight 299.60 11/23/2023 Oxygen Saturation 97.00 11/23/2023 Respiratory Rate 16.00 11/23/2023 Heart Beat 83.00 11/23/2023 Body Temperature 98.20 11/23/2023 BMI 48.36 11/23/2023 BSA 2.37 11/23/2023 Intravascular Systolic 130 11/23/2023 Intravascular Diastolic 70 11/23/2023 Pain Scale 0.00 11/23/2023 Height 66.00 04/25/2024 Respiratory Rate 16.00 04/25/2024 Heart Beat 76.00 04/25/2024 Body Temperature 96.90 04/25/2024 Oxygen Saturation 96.00 04/25/2024 Intravascular Systolic 148 04/25/2024 Intravascular Diastolic 92 04/25/2024 BSA 2.42 04/25/2024 BMI 50.60 04/25/2024 Height 66.00 04/25/2024 Weight 313.50 04/25/2024 Pain Scale 0.00 04/10/2025 BMI 53.23 04/10/2025 Height 66.00 04/10/2025 Weight 329.80 04/10/2025 Pain Scale 7.00 04/10/2025 BSA 2.47 04/10/2025 Heart Beat 78.00 04/10/2025 Respiratory Rate 18.00 04/10/2025 Oxygen Saturation 97.00 04/10/2025 Intravascular Systolic 132 04/10/2025 Intravascular Diastolic 70 04/10/2025 Body Temperature 97.50 Notes Section * [facility] Onc Consult Note (Amended) GYNECOLOGIC ONCOLOGY CONSULT Patient Name: VERO HENRY Patient : 1960 Patient Referring Physician: Malissa Hernandez MD (DAIRY [employer] F[employer] MANAGER) Primary GYNOncologist: Marlene Guzmán (Hematology/Oncology) Date of Service: 08/03/2023 Reason for Consult: I was asked by Dr. Malissa Hernandez to see Vero Henry in regard to a recent diagnosis of EIN/CAH. 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 * Presented with c/o PMB * Pap 08/01/22:?? MYRA * 05/04/23 CT A/P:?? Splenomegaly 15.7 cm.?? Renal cortical cysts.?? 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 1.4 cm splenic artery aneurysm.?? Diffuse hepatic steatosis.?? Nodular hepatic surface coutour suggestfibrosis/cirrhosis.?? Secondary signs of portal HTN with recanalized paraumbilical vein and splenome erasto. * 05/10/23 PUS:?? Uterus 8.5 x 5.2 x 3.8 cm with 2.7 cm fibroid.?? Normal ovaries.?? 4 mm endometrial stripe. * 05/27/[address] Malissa Hernandez.?? EMB performed * Pathology:?? Fragments of benign inactive endometrium and cohesive morular metaplasia.?? Further sampling recommended.?? * 06/28/23 Hysteroscopy, D & C with myosure * Pathology:?? EIN Genetic Testing ([employer]acher [employer] Oncology): Review of Systems: See intake ROS sheet.?? Positive for diminished energy, blurred vision and dry eyes, buzzing in ears, burning mouth, hoarseness, mouth sores, bleeding gums, heart racing, irregular heart beats, chesttightness, difficulty sleeping, anxious/depressed, trouble with memory, frequent cough, some SOB, frequent heartburn, trouble controlling urine flow, painful/stiff joints, problems with balance, frequent headaches, skin rashes.. Past Medical History: Malignant melanoma Anemia Depression Schizophrenia/Schizoaffective disorder vs anxiety/depression/paranoia Diabetes mellitus type II Morbid obesity?? BMI?? 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: - 3 , 1 SAb Allergies: Abilify, Beta-Blockers (Beta-Adrenergic Blocking Agts), Biguanides, Cephalosporins, Corticosteroids(Glucocorticoids), Kenalog, Latuda, Nitroimidazoles, Risperidone Analogues, Sulfa (Sulfonamide Antibiotics), Tolterodine Analogues, cephalexin, gabapentin, metoprolol tartrate, metronidazole, risperidone, talc, triamcinolone acetonide and vancomycin Medications: * Miconazole Topical Powder 2 % 2 % powder prn * Multivitamins Oral Tablet daily * Olanzapine Oral 2.5 mg tablet daily * Cyclobenzaprine Oral 5 mg tablet PRN * Metformin Oral 500 mg tablet bid * Fluoxetine Oral 20 mg capsule daily * Miscellaneous Drug PRN tacrolimus ointment * Zeasorb AF (Miconazole Topical Powder 2 %) PRN * Fluocinonide Topical Gel 0.05 % 0.05 % gel 1 UNIT Topical as directed * Ketoconazole Topical Cream 2 % PRN * Tums (Calcium Carbonate Oral Chewable) (400 mg) daily * Tylenol (Acetaminophen Oral) 500 mg capsule po prn * Calcium Carbonate Oral daily * Sertraline Oral 50 mg tablet daily 75 mg * Hydroxyzine HCl Oral 25 mg tablet 1 TABLET(S) PO Q4-6H PRN * Methocarbamol Oral 500 mg tablet prn * Omeprazole Oral Delayed Release Capsule 40 mg capsule,delayed release(DR/EC) daily * Fluocinonide Topical Cream 0.05 % PRN * [place] (Hydrocodone-Acetaminophen Oral 5 mg-325 mg) 5-325 mg tablet po prn Family History: PGF with colon cancer Father with colon cancer, heart disease Brother with HTN, diabetes mellitus Mother with diabetes mellitus Moth with colon polyps, HTN, family hx of heart disease/CVA/diabetes Social History: Single and .?? Never smoker.?? 12th grade education.?? Lives in Town home.?? 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 Three children.?? Son, Greg, is with her today. Health Maintenance: Vital Signs: Blood pressure: 110/70, Pulse: 48, Temperature: 98.6 F, Respirations: 16, O2 sat: 98%, Pain Scale: 4, Height: 66 in, Weight: 295.6 lb, BSA: 2.36, BMI: 47.71 kg/m2 Physical Exam (Teacher [employer]garten Oncology): General:?? Anxious, , female with somewhat pressured speech HEENT:?? AT/NC LN:?? Normal Back:?? Non-tender Lungs:?? Clear to auscultation Cardiac:?? RRR S1 S2 without murmur Abdomen:?? Upper abdominal diastasis, soft, no palpable masses Extremities:?? Normal Pelvic:?? Normal external genitalia, normal vagina, cervix normal, uterus mobile Laboratory Data: CBC LabResults 02/19/2023 02/08/2023 02/06/2023 02/19/2022 02/25/2021 CBC WBC x 10^3/uL 6.4 7.3 6.1 RBC x 10^6/uL 4.47 4.69 4.63 NRBC % /100 wbc 0.0 0.0 0.0 HGB g/dL 13.5 13.5 13.2 HCT % 39.4 40.1 39.5 MCV fL 88.1 85.5 85.3 MCH pg 30.2 28.8 28.5 MCHC g/dL 34.3 33.7 33.4 RDW % 13.60 13.90 14.10 PLT x 10^3/uL 175 181 174 MPV fL 9.2 (L) 9.2 (L) 9.6 Tammy % 63.4 65.6 58.7 LY % 28.4 27.3 33.9 MO % 5.9 (L) 4.7 (L) 4.6 (L) EO % 1.3 1.6 1.7 BA % 0.5 0.5 0.8 IG % 0.5 0.3 0.3 Tammy # (ANC) x 10^3/uL 4.1 4.8 3.6 LY # x 10^3/uL 1.8 2.0 2.1 MO # x 10^3/uL 0.4 0.3 0.3 EO # x 10^3/uL 0.1 0.1 0.1 BA # x 10^3/uL 0.0 0.0 0.1 IG # x 10^3/uL 0.03 0.02 0.02 CMP LabResults 02/19/2023 02/08/2023 02/06/2023 02/19/2022 2 02/25/2021 Chemistries Glucose mg/dL 189 (H) 205 (H) 160 (H) BUN mg/dL 14.0 13 16 Creatinine mg/dL 0.81 0.86 0.73 Sodium mmol/L 142 141 141 Potassium mmol/L 3.9 4.0 4.0 Chloride mmol/L 106 106 108 CO2 mmol/L 26 26 29 Calcium mg/dL 9.7 9.7 9.1 Albumin g/dL 4.3 4.5 4.4 Total protein g/dL 7.2; 6.9 7.4; 7.1 6.9; 7 .0 Bilirubin, total mg/dL 0.8 0.9 0.4 Alkaline phosphatase U/L 84 107 92 AST/SGOT U/L 24 39 19 ALT/SGPT U/L 23 49 (H) 17 GFR estimate mL/min/1.73m2 82.6 77.3 90.2 LabResults 02/19/2023 02/08/2023 02/06/2023 02/19/2022 02/25/2021 Tumor Markers ? 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 y.o. with abnormal uterine bleeding/PMB due to CAH/EIN.?I discussed the neoplastic potential of CAH/ EIN with 45% of patient having a concurrent low grade endometrial carcinoma.? I am recommending proceeding with robotic assisted total laparoscopic hysterectomy, possible?? bilateral salpingectomy, possible staging.?Risks of surgery and anticipated recovery discussed in detail.?? All questions answered.?? Anticipate overnight stay given medical co-morbidities. Total time 45 min spent on review of outside records, charting, face to face examination and discussion, decision for surgery. Pain Care Management: Pain Scale: 4 Patient Care needs: Depressions Status: Was screened; Outcome positive: Yes; Screening Date: 03/02/2023; Screening Tool: PRIME [id number]; Total depression score: 4 Smoking Status: Smoking Tobacco : Never smoker; Smokeless Tobacco : none found; Vaping : none found Polina Gallo MD Copy to: November Kishore BAEZ FAX Mitra Hernandez MD (Referring) Selena Posada MD ?? 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
--- OUTSIDE RECORDS SUMMARY | 2025-07-06 23:07 | XMS_ITS ---
Author Name Interface, [id number] lity Address [address] [facility] [address] [place] [address] [facility] Address [address] [facility] [address] [place] [address] Support Name Relationship Address Phone Greg Henry Child Unknown Unavailable Allergies and Adverse Reactions Medication/Group Name Reaction Severity Date Risperidone Analogues 2023 triamcinolone acetonide 08/2018 metronidazole 04/10/2025 Beta-Blockers (Beta-Adrenergic Blocking Agts) 04/10/2025 cephalexin 04/10/2025 gabapentin 04/10/2025 Tolterodine Analogues 2018 Cephalosporins 04/10/2025 Nitroimidazoles 04/10/2025 risperidone 04/25/2024 Biguanides 04/10/2025 metoprolol tartrate 04/10/20 Sulfa (Sulfonamide Antibiotics) 10/11/2023 vancomycin 05/23/2019 talc 10/11/2023 Corticosteroids (Glucocorticoids) 04/10/2025 ketamine 04/10/2025 Latuda 04/10/2025 Abilify 04/10/2025 Kenalog 04/10/2025 Plan Date Type Value 04/10/2026 APPOINTMENT [...] Ordered By Specimen Source Lab Address 11/05 [facility] other lab See new autos delivery driver d 11/08 [facility] other lab See new autos delivery driver d 11/22 Color (ua) Yellow FINAL Hafsa Bud [facility] [facility] [place], [address] [facility] [address] [place] [phone] Phone: () - 11/22 Appea ying (ua) Clear FINAL Hafsaanabel Rubi [facility] - [place], [address] [place] [address] [address] [place] [phone] 0 Phone: () - 11/22 Gluco se (ua), qual 500.0% Abnor mal FINAL Hafsaanabel [facility]i [facility] - [place], [address] [place] [address] [address] [place] [phone] Phone: () - 11/22 Bilir ubin (ua) Negativ e FINAL Hafsaanabel Rubi [facility] - [place], [address] [place] [address] [address] [place] [phone] 0 Phone: () - 11/22 Urina lysis , aceto ne or keton e chapo s measu remen t Negativ e FINAL Hafsaanabel Rubi [facility] - [place], [address] [place] [address] [address] [place] [phone] 0 Phone: () - 11/22 Speci fic gravi ty (ua) 1.005 1.02 1.025% Abnor mal FINAL Hafsaanabel [facility]i [facility] - [place], [address] [place] [address] [address] [place] [phone] 0 Phone: () - 11/22 Blood (ua) Negativ e FINAL Hafsaanabel Rubi [facility] - [place], [address] [place] [address] [address] [place] [phone] 0 Phone: () - 11/22 pH (ua) 5.0 8.0 6.0% FINAL Hafsaanabel [facility] [place], [address] [place] [address] [address] [place] [phone] Phone: () - 11/22 Prote in (ua) Negativ e FINAL Hafsaanabel Rubi [facility] - [place], [address] [place] [address] [address] [place] [phone] 0 Phone: () - 11/22 Urobi linog en (ua) 0.2 1.0 0.2% FINAL Hafsaaanbel [facility] - [place], [address] [place] [address] [facility] [phone] Phone: () - 11/22 Nitri te (ua) Negativ e FINAL Hafsa Rubi a [facility], [address] [place] [address] [facility] [phone] Phone: () - 11/22 Leuko cyte jerson ase (ua), qual Negativ e FINAL Hafsa Rubi [facility], [address] [place] [address] [phone] Phone: () - 11/22 UA comme nt 1 Dipstic k negativ e- Culture ordered per provide r FINAL Hafsa Rubi [facility], [address] [place] [address] [phone] Phone: () - 11/22 Urine cultu re panel CULTU RE, URINE , ROUTI NE SEE NOTE Abnor mal CULTURE, URINE, ROUTINEMi crown presser Number: [id number] est Status: FinalSpec imen Source: UrineSpec imen [...] f. FINAL Hafsaanabel Farrell [facility] [address] [facility] [phone] 4 12/18 [facility] other lab See d 04/18 Total prote in g/dL 6.3 8.2 6.9 FINAL Marlene Guzmán * [facility], [facility] [address] [place] [address] [id number] 0 04/18 Album in, SPE g/dL 3.31 5.31 3.97 FINAL Marlene Guzmán * [facility], [facility] [address] [place] [address] [id number] [phone] 04/18 Alpha -1 globu tony g/dL 0.19 0.42 0.26 FINAL Marlene Guzmán * [facility], [address] [facility] [address] [id number] 0 04/18 Alpha -2 globu tony g/dL 0.44 1.03 0.63 FINAL Marlene Guzmán * [facility], [address] [facility] [address] [id number] 0 04/18 Beta globu tony g/dL 0.52 1.05 0.95 FINAL Marlene Guzmán * [facility], [address] [facility] [address] [id number] 0 04/18 Gamma globu tony g/dL 0.59 1.46 1.10 FINAL Marlene Guzmán * [facility], [facility]0 [facility] [address] [place] [address] [phone] 04/18 Elect abiola jackson Gemma in Lab resul t note Previou sly identif ied parapro teins detecte d in gamma region. Were 0.3 and 0.4 gm/dL, now 0.3 and 0.3 gm/dL. Interpr eted and signed by Adrienne Swanson MD on 024 FINAL Marlene Guzmán * [facility], [facility] [address] [place] [address] [id number] 04/18 M-spi ke, SPE, g/dL g/dL 0.0 0.0 0.3 High FINAL Marlene Guzmán * [facility], [address] [facility] [address] [id number] 0 04/18 M-spi ke 2, SPE g/dL 0.0 0.0 0.3 High FINAL Marlene Guzmán * [facility], [facility] [address] [place] [address] [id number] 04/18 Immun oglob ulin measu remen t IgG, quant mg/dL 610.0 1616.0 946.67 Test performed at [facility] on a Binding Site Optilite Analyzer that uses a turbidime tric method for analysis. Patient testing should not be performed using multiple methodreal gikim due to analytica l variation seen between test methodreal rocha. FINAL Marlene Guzmán * [facility] [address] [place] [address] [id number] 0 04/18 Immun oglob ulin measu remen t IgA, quant mg/dL 61.0 348.0 493.08 High Test performed at [facility] on a Binding Site Optilite Analyzer that uses a turbidime tric method for analysis. Patient testing should not be performed using multiple methodolo gies due to analytica l variation seen between test methodolo gies. FINAL Marlene Stroud [facility] [address] [place] [address] [id number] 0 04/18 Immun oglob ulin measu remen t IgM, quant mg/dL 35.0 242.0 75.62 Test performed at [facility] on a Binding Site Optilite Analyzer that uses a turbidime tric method for analysis. Patient testing should not be performed using multiple methodolo gies due to analytica l variation seen between test methodolo gies. FINAL Marlene Stroud [facility] a [address] [place] [address] [id number] 0 04/18 Free kappa / lambd a with K/L ratio , serum Mercer light chain , free, serum , mg/dL mg/dL 0.33 1.94 3.62 High Test performed at [facility] on a Binding Site Optilite Analyzer that uses a turbidime tric method for analysis. Patient testing should not be performed using multiple methodolo gies due to analytica l variation seen between test methodolo gies. FINAL Marlene Guzmán * [facility] a [address] [place] [address] [id number] 0 04/18 Free kappa / lambd a with K/L ratio , serum Lambd a light chain , free, serum , mg/dL mg/dL 0.57 2.63 3.13 High Test performed at [facility] on a Binding Site Optilite Analyzer that uses a turbidime tric method for analysis. Patient testing should not be performed using multiple methodolo gies due to analytica l variation seen between test methodolo gies. FINAL Marlene Stroud [facility] [address] [place] [address] [id number] 0 04/18 Free kappa / lambd a with K/L ratio , serum K/L light chain ratio , free, serum 0.26 1.65 1.16% FINAL Marlene Guzmán * [facility] [place], [address] [facility] [place] [id number] 0 04/18 CBC w/ auto diff WBC K/uL 3.0 8.9 7.0 FINAL Marlene [facility] - [place], [address] [place] [phone] 0 Phone: () - 04/18 CBC w/ auto diff HGB g/dL 11.3 15.2 14.0 FINAL Marlene Rubi a [facility] - [place], [address] [place] [id number] 0 Phone: () - 04/18 CBC w/ auto diff PLT K/uL 113.0 364.0 164 FINAL Marlene Rubi a [facility] - [place], [address] [place] [id number] 0 Phone: () - 04/18 CBC w/ auto diff Tammy # (ANC) K/uL 1.6 6.6 4.5 FINAL Marlene pagan [facility] - [place], [address] [place] [id number] 0 Phone: () - 04/18 CBC w/ auto diff Tammy % % 43.0 74.0 64.0 FINAL Marlene [facility] - [place], [address] [place] [id number] 0 Phone: () - 04/18 CBC w/ auto diff IG % % 0.0 0.5 0.3 FINAL Marlene Rubi a [facility] - [place], [address] [place] [id number] 0 Phone: () - 04/18 CBC w/ auto diff IG # K/uL 0.0 0.03 0.02 FINAL Marlene Rubi a [facility] - [place], [address] [place] [id number] 0 Phone: () - 04/18 CBC w/ auto diff LY % % 14.0 41.0 28.2 FINAL Marlene pagan [facility] - [place], [address] [place] [id number] 0 Phone: () - 04/18 CBC w/ auto diff MO % % 6.0 15.0 6.0 FINAL Marlene [facility] - [place], [address] [place] [id number] 0 Phone: () - 04/18 CBC w/ auto diff EO % % 0.0 7.0 1.1 FINAL Marlene pagan [facility] - [place], [address] [place] [id number] 0 Phone: () - 04/18 CBC w/ auto diff BA % % 0.0 2.0 0.4 FINAL Marlene pagan [facility] - [place], [address] [place] [id number] 0 Phone: () - 04/18 CBC w/ auto diff LY # K/uL 0.4 3.6 2.0 FINAL Marlene pagan [facility] - [place], [address] [place] [id number] 0 Phone: () - 04/18 CBC w/ auto diff MO # K/uL 0.2 1.3 0.4 FINAL Marlene pagan [facility] - [place], [address] [place] [id number] 0 Phone: () - 04/18 CBC w/ auto diff EO # K/uL 0.0 0.6 0.1 FINAL Marlene pagan [facility] - [place], [address] [place] [id number] 0 Phone: () - 04/18 CBC w/ auto diff BA # K/uL 0.0 0.2 0.0 FINAL Marlene [facility] - [place], [address] [place] [id number] 0 Phone: () - 04/18 CBC w/ auto diff NRBC % #/100W BC 0.0 0.2 0.0 FINAL Marlene [facility] - [place], [address] [place] [id number] 0 Phone: () - 04/18 CBC w/ auto diff RBC M/uL 3.9 5.1 4.84 FINAL Marlene [facility] - [place], [address] [place] [id number] 0 Phone: () - 04/18 CBC w/ auto diff HCT % 35.0 48.0 40.4 FINAL Marlene Ramirez [facility] - [place], [address] [place] [id number] 0 Phone: () - 04/18 CBC w/ auto diff MCV fL 80.0 104.0 83.5 FINAL Marlene Ramirez [facility] - [place], [address] [place] [id number] 0 Phone: () - 04/18 CBC w/ auto diff MCH pg 26.0 35.0 28.9 FINAL Marlene Guzmán [facility] - [place], [address] [place] [id number] 0 Phone: () - 04/18 CBC w/ auto diff MCHC g/dL 30.0 35.0 34.7 FINAL Marlene Guzmán [facility] - [place], [address] [place] [id number] 0 Phone: () - 04/18 CBC w/ auto diff MPV fL 9.5 13.4 9.7 FINAL Marlene Guzmán [facility] - [place], [address] [place] [id number] 0 Phone: () - 04/18 CBC w/ auto diff RDW % 11.4 16.1 13.80 FINAL Marlene Guzmán [facility] [place], [address] [facility] [place] [phone] 0 Phone: ( 04/18 CMP Album in g/dL 3.5 5.0 4.0 FINAL Marlene Guzmán * [place] [facility] [place], [address] [facility] [id number] 0 04/18 CMP Alkal ine phosp hatas e U/L 36.0 125.0 105 FINAL Marlene Guzmán * [facility], [address] [facility] [id number] 0 04/18 CMP ALT/S GPT U/L 0.0 34.0 35 High FINAL Marlene Guzmán * [facility], [address] [facility] [id number] 0 04/18 CMP AST/S GOT U/L 14.0 36.0 44 High FINAL Marlene Guzmán * [facility], [address] [facility] [id number] 0 04/18 CMP BUN mg/dL 7.0 17.0 21.0 High FINAL Marlene Guzmán * [facility], [address] [facility] [id number] 0 04/18 CMP Calci um mg/dL 8.4 10.2 8.8 FINAL Marlene Guzmán * [facility], [address] [facility] [id number] 0 04/18 CMP Chlor nilson mmol/L 96.0 107.0 106 FINAL Marlene Guzmán * [facility], [address] [facility] [id number] 0 04/18 CMP CO2 mmol/L 22.0 30.0 [...] 96 hour stability window. FINAL Marlene Stroud [facility] [address] [id number] 0 04/18 CMP Creat inine mg/dL 0.66 1.25 0.70 FINAL Marlene Guzmán * [facility], [address] [place] [address] [id number] 0 04/18 CMP GFR estim ate ml/min /1.73m ^2 97.7 GFR is calculate d using the CKD-EPI equation. FINAL Marlene Stroud [facility] [address] [id number] 0 04/18 CMP Gluco se mg/dL 74.0 100.0 267 High FINAL Marlene Stroud [facility] [address] [place] [address] [id number] 0 04/18 CMP Potas sium mmol/L 3.5 5.1 4.0 FINAL Marlene Stroud [facility] [address] [id number] 0 04/18 CMP Sodiu m mmol/L 137.0 145.0 136 Low FINAL Marlene Stroud [facility] [address] [id number] 0 04/18 CMP Bilir ubin, total mg/dL 0.2 1.3 1.0 FINAL Marlene Stroud [facility], [address] [facility] [address] [id number] 0 04/18 CMP Total prote in g/dL 6.3 8.2 7.3 FINAL Marlene Guzmán * [place] [place], [address] [facility] [address] [id number] 0 04/18 [facility] other lab See new autos delivery driver d 12/20 [facility] other lab See new autos delivery driver d 12/20 [facility] other lab See new autos delivery driver d 03/09 Free kappa / lambd a with K/L ratio , serum Mercer light chain , free, serum , mg/dL mg/dL 0.33 1.94 4.35 High Test performed at [facility] on a Binding Site Optilite Analyzer that uses a turbidime tric method for analysis. Patient testing should not be performed using multiple methodolo gies due to analytica l variation seen between test methodolo gies. FINAL Marlene Guzmán * [facility] , [address] [facility] [address] [id number] 0 03/09 Free kappa / lambd a with K/L ratio , serum Lambd a light chain , free, serum , mg/dL mg/dL 0.57 2.63 3.83 High Test performed at [facility] on a Binding Site Optilite Analyzer that uses a turbidime tric method for analysis. Patient testing should not be performed using multiple methodolo gies due to analytica l variation seen between test methodolo gies. FINAL Marlene Guzmán * [facility] , [address] [facility] [address] [id number] 0 03/09 Free kappa / lambd a with K/L ratio , serum K/L light chain ratio , free, serum 0.26 1.65 1.14% FINAL Marlene Guzmán * [facility] , [address] [facility] [address] [id number] 0 03/09 CMP Album in g/dL 3.5 5.0 3.8 FINAL Marlene Guzmán * [facility] , [address] [facility] [id number] 0 03/09 CMP Alkal ine phosp hatas e U/L 36.0 125.0 106 FINAL Marleneanabel Guzmán * [facility] , [address] [facility] [id number] 0 03/09 CMP ALT/S GPT U/L 0.0 34.0 37 High FINAL Marlene Guzmán * [facility] , [address] [facility] [id number] 0 03/09 CMP AST/S GOT U/L 14.0 36.0 36 FINAL Marlene Guzmán * [facility] , [address] [facility] [id number] 0 03/09 CMP BUN mg/dL 7.0 17.0 18.0 High FINAL Marlene Guzmán * [facility] , [address] [facility] [id number] 0 03/09 CMP Calci um mg/dL 8.4 10.2 8.9 FINAL Marleneanabel Guzmán * [facility] , [address] [facility] [id number] 0 03/09 CMP Chlor nilson mmol/L 96.0 107.0 99 FINAL Marleneanabel Guzmán * [facility] , [address] [facility] [id number] 0 03/09 CMP CO2 mmol/L 22.0 30.0 [...] hour stability window. FINAL Marleneanabel Guzmán * [facility] , [address] [facility] [address] [facility] [id number] 0 03/09 CMP Creat inine mg/dL 0.66 1.25 0.70 FINAL Marleneanabel Guzmán * [facility] , [address] [facility] [address] [facility] [id number] 0 03/09 CMP GFR estim ate ml/min /1.73m ^2 97.1 GFR is calculate d using the CKD-EPI equation. FINAL Marleneanabel Guzmán * [facility] , [address] [facility] [address] [facility] [id number] 0 03/09 CMP Gluco se mg/dL 74.0 100.0 363 Criti sami High FINAL Marlene Guzmán * [facility] , [address] [facility] [address] [facility] [id number] 0 03/09 CMP Potas sium mmol/L 3.5 5.1 3.9 FINAL Marlene Ramirez * [facility] , [address] [facility] [address] [facility] [id number] 0 03/09 CMP Sodiu m mmol/L 137.0 145.0 134 Low FINAL Marleneanabel Guzmán * [facility] , [address] [facility] [address] [facility] [id number] 0 03/09 CMP Bilir ubin, total mg/dL 0.2 1.3 1.1 FINAL Marleneanabel Guzmán * [facility] , [address] [facility] [address] [facility] [id number] 0 03/09 CMP Total prote in g/dL 6.3 8.2 7.3 FINAL Marlene Guzmán * [facility] , [address] [facility] [address] [facility] [id number] 0 03/09 CBC w/ auto diff WBC K/uL 3.0 8.9 7.1 FINAL Marlene Guzmán [place] [facility] [place] [facility] , [address] [place] [id number] 0 03/09 CBC w/ auto diff HGB g/dL 11.3 15.2 14.4 FINAL Marlene Guzmán [place] [facility] [place] [facility] , [address] [place] [id number] 0 03/09 CBC w/ auto diff PLT K/uL 113.0 364.0 179 FINAL Marlene Guzmán [place] [facility] [place] [facility] , [address] [place] [id number] 0 03/09 CBC w/ auto diff Tammy # (ANC) K/uL 1.6 6.6 4.7 FINAL Marlene Guzmán [facility] [place] [facility] , [address] [place] [id number] 0 03/09 CBC w/ auto diff Tammy % % 43.0 74.0 65.7 FINAL Marlene Guzmán [place] [facility] [place] [facility] , [address] [place] [id number] 0 03/09 CBC w/ auto diff IG % % 0.0 0.5 0.6 High FINAL Marlene Guzmán [place] [facility] [place] [facility] , [address] [place] [id number] 0 03/09 CBC w/ auto diff IG # K/uL 0.0 0.03 0.04 High FINAL Marlene Guzmán [place] [facility] [place] [facility] , [address] [place] [id number] 0 03/09 CBC w/ auto diff LY % % 14.0 41.0 25.8 FINAL Marlene Guzmán [place] [facility] [place] [facility] , [address] [place] [id number] 0 03/09 CBC w/ auto diff MO % % 6.0 15.0 6.2 FINAL Marlene Guzmán [place] [facility] [place] [facility] , [address] [place] [id number] 0 03/09 CBC w/ auto diff EO % % 0.0 7.0 1.1 FINAL Marlene Guzmán [place] [facility] [place] [facility] , [address] [place] [id number] 0 03/09 CBC w/ auto diff BA % % 0.0 2.0 0.6 FINAL Marlene Guzmán [place] [facility] [place] [facility] , [address] [place] [id number] 0 03/09 CBC w/ auto diff LY # K/uL 0.4 3.6 1.8 FINAL Marlene Guzmán [place] [facility] [place] [facility] , [address] [place] [id number] 0 03/09 CBC w/ auto diff MO # K/uL 0.2 1.3 0.4 FINAL Marlene Guzmán [place] [facility] [place] [facility] , [address] [place] [id number] 0 03/09 CBC w/ auto diff EO # K/uL 0.0 0.6 0.1 FINAL Marlene Guzmán [place] [facility] [place] [facility] , [address] [place] [id number] 0 03/09 CBC w/ auto diff BA # K/uL 0.0 0.2 0.0 FINAL Marlene Guzmán [place] [facility] [place] [facility] , [address] [place] [id number] 0 03/09 CBC w/ auto diff NRBC % #/100W BC 0.0 0.2 0.0 FINAL Marlene Guzmán [place] [facility] [place] [facility] , [address] [place] [id number] 0 03/09 CBC w/ auto diff RBC M/uL 3.9 5.1 5.08 FINAL Marlene Guzmán [place] [facility] [place] [facility] , [address] [place] [id number] 0 03/09 CBC w/ auto diff HCT % 35.0 48.0 42.9 FINAL Marlene Guzmán [facility] [place] [facility] , [address] [place] [id number] 0 03/09 CBC w/ auto diff MCV fL 80.0 104.0 84.4 FINAL Marlene Guzmán [facility] - [place] [facility] , [address] [place] [id number] 0 03/09 CBC w/ auto diff MCH pg 26.0 35.0 28.3 FINAL Marlene Guzmán [facility] [place] [facility] , [address] [place] [id number] 0 03/09 CBC w/ auto diff MCHC g/dL 30.0 35.0 33.6 FINAL Marlene Guzmán [facility] [place] [facility] , [address] [place] [id number] 0 03/09 CBC w/ auto diff MPV fL 9.5 13.4 9.6 FINAL Marlene Guzmán [place] [facility] [place] [facility] , [address] [place] [id number] 0 03/09 CBC w/ auto diff RDW % 11.4 16.1 14.20 FINAL Marlene Guzmán [facility] , [address] [facility] [id number] 0 03/09 Total prote in g/dL 6.3 8.2 7.1 FINAL Marlene Guzmán * [facility] , [address] [facility] [address] [facility] [id number] 0 03/09 Album in, SPE g/dL 3.31 5.31 4.70 FINAL Marlene Guzmán * [facility] , [address] [facility] [address] [id number] 0 03/09 Alpha -1 globu tony g/dL 0.19 0.42 0.23 FINAL Marlene Guzmán * [facility] , [address] [facility] [address] [id number] 0 03/09 Alpha -2 globu tony g/dL 0.44 1.03 0.52 FINAL Marlene Guzmán * [facility] , [address] [facility] [address] [id number] 0 03/09 Beta globu tony g/dL 0.52 1.05 0.80 FINAL Marlene Guzmán * [facility] , [address] [id number] 0 03/09 Gamma globu tony g/dL 0.59 1.46 0.85 FINAL Marlene Guzmán * [facility] , [address] [id number] 0 03/09 Gemma Rodriguez in Lab resul t note Previou sly identif ied parapro teins detecte d in gamma region. Is now 0.3 and 0.4 gm/dL. Interpr eted and signed by Luis Guillermo MD on 025 FINAL Marlene Guzmán * [facility] , [address] [facility] [id number] 0 03/09 M-spi ke, SPE, g/dL g/dL 0.0 0.0 0.3 High FINAL Marlene Guzmán * [facility] , [address] [facility] [id number] 0 03/09 M-spi ke 2, SPE g/dL 0.0 0.0 0.4 High FINAL Marlene Guzmán * [facility] , [address] [facility] [id number] 0 03/09 Immun oglob ulin measu remen t IgG, quant mg/dL 610.0 1616.0 1080.49 Test performed at [facility] on a Binding Site Optilite Analyzer that uses a turbidime tric method for analysis. Patient testing should not be performed using multiple methodolo gies due to analytica l variation seen between test methodolo gies. FINAL Marlene Guzmán * [facility] , [address] [facility] [id number] 0 03/09 Immun oglob ulin measu remen t IgA, quant mg/dL 61.0 348.0 577.26 High Test performed at [facility] on a Binding Site Optilite Analyzer that uses a turbidime tric method for analysis. Patient testing should not be performed using multiple methodolo gies due to analytica l variation seen between test methodolo gies. FINAL Marlene Guzmán * [facility] , [address] [facility] [id number] 0 03/09 Immun oglob ulin measu remen t IgM, quant mg/dL 35.0 242.0 91.00 Test performed at [facility] on a Binding Site Optilite Analyzer that uses a turbidime tric method for analysis. Patient testing should not be performed using multiple methodolo gies due to analytica l variation seen between test methodolo josefina. FINAL Marlene Guzmán * [facility] , [address] [facility] [phone] 0 04/03 [facility] other lab See attache malave Medications Date [...] neous Drug PRN tacrolimus ointment active 03/02 Omeprazo le Oral Delayed Release Capsule daily active 03/04 Calcium Carbonat e Oral Chewable daily active 03/02 Fluocino nide Topical Cream 0.05 % PRN active 04/25 Insulin Regular Human Subcutan eous active 03/02 Sertrali ne Oral daily 75 mg active 03/04 Methocar bamol Oral prn active 04/25 Semaglut nilson Subcutan eous Pen Injector weekly active 03/04 Metformi n Oral bid active 03/02 Miconazo le Topical Powder 2 % PRN active 03/02 Ketocona zole Topical Cream 2 [...] BMI 47.71 08/03/2023 Oxygen Saturation 98.00 10/11/2023 Body Temperature 98.10 10/11/2023 Oxygen Saturation 97.00 10/11/2023 Heart Beat 78.00 10/11/2023 Respiratory Rate 16.00 10/11/2023 Intravascular Systolic 128 10/11/2023 Intravascular Diastolic 80 10/11/2023 Pain Scale 0.00 10/11/2023 Weight 295.60 10/11/2023 Height 66.00 10/11/2023 BMI 47.71 10/11/2023 BSA 2.36 11/23/2023 Pain Scale 0.00 11/23/2023 Intravascular Systolic 130 11/23/2023 Intravascular Diastolic 70 11/23/2023 BMI 48.36 11/23/2023 Height 66.00 11/23/2023 Body Temperature 98.20 11/23/2023 BSA 2.37 11/23/2023 Oxygen Saturation 97.00 11/23/2023 Respiratory Rate 16.00 11/23/2023 Heart Beat 83.00 11/23/2023 Weight 299.60 04/25/2024 Height 66.00 04/25/2024 BSA 2.42 04/25/2024 Weight 313.50 04/25/2024 Pain Scale 0.00 04/25/2024 BMI 50.60 04/25/2024 Intravascular Systolic 148 04/25/2024 Intravascular Diastolic 92 04/25/2024 Respiratory Rate 16.00 04/25/2024 Heart Beat 76.00 04/25/2024 Body Temperature 96.90 04/25/2024 Oxygen Saturation 96.00 04/10/2025 Body Temperature 97.50 04/10/2025 Heart Beat 78.00 04/10/2025 Respiratory Rate 18.00 04/10/2025 Oxygen Saturation 97.00 04/10/2025 BSA 2.47 04/10/2025 Pain Scale 7.00 04/10/2025 Weight 329.80 04/10/2025 Height 66.00 04/10/2025 BMI 53.23 04/10/2025 Intravascular Systolic 132 04/10/2025 Intravascular Diastolic 70 Notes Section * [facility] Onc Consult Note (Amended) GYNECOLOGIC ONCOLOGY CONSULT Patient Name: VERO HENRY Patient : 1960 Patient Referring Physician: Malissa Hernandez MD (LINKING MACHINE OPERATOR) Primary GYNOncologist: Marlene Guzmán (Hematology/Oncology) Date of Service: 08/03/2023 Reason for Consult: I was asked by Dr. Malissa Hernandez to see Vero Henry in regard to a recent diagnosis of EIN/CAH. History of Present Illness ([employer]cology): 63 y.o.?? * Presented with c/o [...] with myosure * Pathology:?? 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 Anxious, , female with somewhat [...] record:05/23/2019 Last record:05/23/2019; ) Assessment & Plan ([employer]): 63?? y.o. with abnormal uterine bleeding/PMB [...] Copy to: November Kishore BAEZ FAX Mitra Hernandze MD (Referring) Selena Posada MD ?? 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
--- OUTSIDE RECORDS SUMMARY | 2025-07-06 23:08 | XMS_ITS ---
Author Name Interface, [id number] lity Address [address] [facility] [address] [place] [address] [facility] Address [address] [facility] [address] [place] [address] Support Name Relationship Address Phone Greg Ch Child Unknown Unavailable Allergies and Adverse Reactions [...] OFFICE FU 30 MIN NO TREATMENT 11/23/2023 LAB_ORDER Urine culture pa margaret 11/23/2023 [...] Visit OV 20 MIN Encounters Date Name 11/23/2023 Dysuria 11/23/2023 EIN 11/23/2023 General body pain Diagnostic Results Date Type Test Units Lower Limit Upper Limit Result Flag Comments Status Ordered By Specimen Source Lab Address 11/22 Color (ua) Yellow FINAL [facility] [place], [address] [place] [address] [address] [facility] [id number] 0 Phone: () - 11/22 Appea ying (ua) Clear FINAL [facility] [place], [address] [place] [address] 210 [facility] [id number] 0 Phone: () - 11/22 Gluco se (ua), qual 500.0% Abnor mal FINAL [facility] [place], [address] 210 [facility] [id number] 0 Phone: () - 11/22 Bilir ubin (ua) Negativ e FINAL [facility] [place], [address] [place] [address] 210 [facility] [id number] 0 Phone: () - 11/22 Urina lysis , aceto ne or keton e chapo s measu remen t Negativ e FINAL [facility] [place], [address] [place] [phone] 0 Phone: () - 11/22 Speci fic gravi ty (ua) 1.005 1.02 1.025% Abnor mal FINAL [facility] [place], [address] [place] [phone] 0 Phone: () - 11/22 Blood (ua) Negativ e FINAL [facility] [place], [address] [place] [address] 210 [place] [phone] 0 Phone: () - 11/22 pH (ua) 5.0 8.0 6.0% FINAL [facility] [place], [address] [place] [address] 210 [facility] [phone] 0 Phone: () - 11/22 Prote in (ua) Negativ e FINAL [facility] [place], [address] [place] [address] 210 [place] [phone] 0 Phone: () - 11/22 Urobi linog en (ua) 0.2 1.0 0.2% FINAL [facility] [place], [address] [place] [address] 210 [place] [phone] 0 Phone: () - 11/22 Nitri te (ua) Negativ e FINAL [facility] [place], [address] [place] [address] 210 [place] [id number] 0 Phone: () - 11/22 Leuko cyte jerson ase (ua), qual Negativ e FINAL [facility] [place], [address] [place] [address] 210 [place] [id number] 0 Phone: () - 11/22 UA comme nt 1 Dipstic k negativ e- Culture ordered per provide r FINAL [facility] [place], [address] [place] [address] 210 [place] [phone] Phone: () - 11/22 Urine cultu re panel CULTU RE, URINE , ROUTI NE SEE NOTE Abnor mal CULTURE, URINE, ROUTINEMi crocheter Number: [id number] est Status: FinalSpec imen Source: UrineSpec imen [...] cefuroxim e, cephalexi nand loracarbe f. FINAL Hafsa [facility], [facility] [address] [place] [id number] 4 12/18 [facility] other lab See pipe organ mechanic apprentice d 04/18 Total prote in g/dL 6.3 8.2 6.9 FINAL Marlene Guzmán * [facility], [address] [facility] [address] [place] [address] [id number] 04/18 Album in, SPE g/dL 3.31 5.31 3.97 FINAL Marlene Guzmán * [facility], [facility] [address] [place] [address] [id number] 04/18 Alpha -1 globu tony g/dL 0.19 0.42 0.26 FINAL Marlene Guzmán * [facility], [facility] [address] [place] [address] [id number] 04/18 Alpha -2 globu tony g/dL 0.44 1.03 0.63 FINAL Marlene Guzmán * [facility] [address] [place] [address] [id number] 0 04/18 Beta globu tony g/dL 0.52 1.05 0.95 FINAL Marlene Guzmán * [facility], [address] [facility] [address] [place] [address] [id number] 04/18 Gamma globu tony g/dL 0.59 1.46 1.10 FINAL Marlene Guzmán * [facility], [address] [facility] [address] [place] [address] [id number] 0 04/18 Elect Gemma layton in Lab resul t note Previou sly identif ied parapro teins detecte d in gamma region. Were 0.3 and 0.4 gm/dL, now 0.3 and 0.3 gm/dL. Interpr eted and signed by Adrienne Swanson MD on 024 FINAL Marlene Guzmán * [facility], [facility] [address] [place] [address] [id number] 0 04/18 M-spi ke, SPE, g/dL g/dL 0.0 0.0 0.3 High FINAL Marleneanabel Guzmán * [facility], [address] [facility] [id number] 0 04/18 M-spi ke 2, SPE g/dL 0.0 0.0 0.3 High FINAL Marlene Guzmán * [facility], [address] [facility] [address] [facility] [id number] 0 04/18 Immun oglob ulin measu remen t IgG, quant mg/dL 610.0 1616.0 946.67 Test performed at [facility] on a Binding Site Optilite Analyzer that uses a turbidime tric method for analysis. Patient testing should not be performed using multiple methodolo gies due to analytica l variation seen between test methodolo gies. FINAL Marlene Guzmán * [facility], [address] [id number] 0 04/18 Immun oglob ulin measu remen t IgA, quant mg/dL 61.0 348.0 493.08 High Test performed at [facility] on a Binding Site Optilite Analyzer that uses a turbidime tric method for analysis. Patient testing should not be performed using multiple methodolo gies due to analytica l variation seen between test methodolo gies. FINAL Marlene Guzmán * [facility], [address] [id number] 0 04/18 Immun oglob ulin measu remen t IgM, quant mg/dL 35.0 242.0 75.62 Test performed at [facility] on a Binding Site Optilite Analyzer that uses a turbidime tric method for analysis. Patient testing should not be performed using multiple methodolo gies due to analytica l variation seen between test methodolo gies. FINAL Marlene Guzmán * [facility], [address] [id number] 0 04/18 Free kappa / lambd a with K/L ratio , serum [place] light chain , free, serum , mg/dL mg/dL 0.33 1.94 3.62 High Test performed at [facility] on a Binding Site Optilite Analyzer that uses a turbidime tric method for analysis. Patient testing should not be performed using multiple methodolo gies due to analytica l variation seen between test methodolo gies. FINAL Marlene Stroud [facility], [address] [id number] 0 04/18 Free kappa / lambd a with K/L ratio , serum Lambd a light chain , free, serum , mg/dL mg/dL 0.57 2.63 3.13 High Test performed at [facility] on a Binding Site Optilite Analyzer that uses a turbidime tric method for analysis. Patient testing should not be performed using multiple methodolo gies due to analytica l variation seen between test methodolo gies. FINAL [facility], [address] [facility] [address] [id number] 0 04/18 Free kappa / lambd a with K/L ratio , serum K/L light chain ratio , free, serum 0.26 1.65 1.16% FINAL Marlene [facility], [address] [facility] [address] [id number] 0 04/18 CBC w/ auto diff WBC K/uL 3.0 8.9 7.0 FINAL Marlene [facility] [place], [address] [facility] [address] [facility] [id number] 0 Phone: () - 04/18 CBC w/ auto diff HGB g/dL 11.3 15.2 14.0 FINAL Marlene [facility] [place], [address] [place] [id number] 0 Phone: () - 04/18 CBC w/ auto diff PLT K/uL 113.0 364.0 164 FINAL Marlene [facility]i [facility] - [place], [address] [place] [id number] 0 Phone: () - 04/18 CBC w/ auto diff Tammy # (ANC) K/uL 1.6 6.6 4.5 FINAL Marlene [facility] [place], [address] [place] [id number] 0 Phone: () - 04/18 CBC w/ auto diff Tammy % % 43.0 74.0 64.0 FINAL Marlene Ramirez [facility] [place], [address] [place] [id number] 0 Phone: () - 04/18 CBC w/ auto diff IG % % 0.0 0.5 0.3 FINAL Marlene Ramirez [facility] [place], [address] [place] [id number] 0 Phone: () - 04/18 CBC w/ auto diff IG # K/uL 0.0 0.03 0.02 FINAL Marlene Ramirez [facility] [place], [address] [place] [id number] 0 Phone: () - 04/18 CBC w/ auto diff LY % % 14.0 41.0 28.2 FINAL Marlene Guzmán [facility] [place], [address] [place] [id number] 0 Phone: () - 04/18 CBC w/ auto diff MO % % 6.0 15.0 6.0 FINAL Marlene Guzmán [facility] [place], [address] [place] [id number] 0 Phone: () - 04/18 CBC w/ auto diff EO % % 0.0 7.0 1.1 FINAL Marlene [facility] [place], [address] [place] [id number] 0 Phone: () - 04/18 CBC w/ auto diff BA % % 0.0 2.0 0.4 FINAL Marlene [facility] [place], [address] [place] [id number] 0 Phone: () - 04/18 CBC w/ auto diff LY # K/uL 0.4 3.6 2.0 FINAL Marlene [facility] - [place], [address] [place] [id number] 0 Phone: () - 04/18 CBC w/ auto diff MO # K/uL 0.2 1.3 0.4 FINAL Marlene [facility] - [place], [address] [place] [id number] 0 Phone: () - 04/18 CBC w/ auto diff EO # K/uL 0.0 0.6 0.1 FINAL Marlene [facility] - [place], [address] [place] [id number] 0 Phone: () - 04/18 CBC w/ auto diff BA # K/uL 0.0 0.2 0.0 FINAL Marlene [facility] - [place], [address] [place] [id number] 0 Phone: () - 04/18 CBC w/ auto diff NRBC % #/100W BC 0.0 0.2 0.0 FINAL Marlene [facility] - [place], [address] [place] [id number] 0 Phone: () - 04/18 CBC w/ auto diff RBC M/uL 3.9 5.1 4.84 FINAL Marlene [facility] - [place], [address] [place] [id number] 0 Phone: () - 04/18 CBC w/ auto diff HCT % 35.0 48.0 40.4 FINAL Marlene Guzmán [facility] [place], [address] [place] [id number] 0 Phone: () - 04/18 CBC w/ auto diff MCV fL 80.0 104.0 83.5 FINAL Marlene Guzmán [facility] [place], [address] [place] [id number] 0 Phone: () - 04/18 CBC w/ auto diff MCH pg 26.0 35.0 28.9 FINAL Marlene Guzmán [facility] [place], [address] [place] [id number] 0 Phone: () - 04/18 CBC w/ auto diff MCHC g/dL 30.0 35.0 34.7 FINAL Marlene Guzmán [facility] [place], [address] [place] [id number] 0 Phone: () - 04/18 CBC w/ auto diff MPV fL 9.5 13.4 9.7 FINAL Marlene Guzmán [facility] [place], [address] [place] [id number] 0 Phone: () - 04/18 CBC w/ auto diff RDW % 11.4 16.1 13.80 FINAL Marlene Guzmán [facility] [place], [address] [place] [id number] 0 Phone: () - 04/18 CMP Album in g/dL 3.5 5.0 4.0 FINAL Marlene Guzmán * [facility] [place], [address] [place] [id number] 0 04/18 CMP Alkal ine phosp hatas e U/L 36.0 125.0 105 FINAL Marlene Guzmán * [facility] [place], [address] [place] [id number] 0 04/18 CMP ALT/S GPT U/L 0.0 34.0 35 High FINAL Marlene Guzmán * [facility], [address] [facility] [address] [id number] 0 04/18 CMP AST/S GOT U/L 14.0 36.0 44 High FINAL Marlene Guzmán * [facility], [address] [facility] [address] [id number] 0 04/18 CMP BUN mg/dL 7.0 17.0 21.0 High FINAL Marlene Guzmán * [facility], [address] [facility] [address] [id number] 0 04/18 CMP Calci um mg/dL 8.4 10.2 8.8 FINAL Marlene Guzmán * [facility], [address] [facility] [address] [id number] 0 04/18 CMP Chlor nilson mmol/L 96.0 107.0 106 FINAL Marlene Guzmán * [facility], [address] [facility] [address] [id number] 0 04/18 CMP CO2 mmol/L 22.0 30.0 [...] the 96 hour stability window. FINAL Marlene Guzmán * [facility], [address] [facility] [address] [id number] 0 04/18 CMP Creat inine mg/dL 0.66 1.25 0.70 FINAL Marlene Guzmán * [facility], [address] [facility] [id number] 0 04/18 CMP GFR estim ate ml/min /1.73m ^2 97.7 GFR is calculate d using the CKD-EPI equation. FINAL Marlene Guzmán * [facility], [address] [facility] [id number] 0 04/18 CMP Gluco se mg/dL 74.0 100.0 267 High FINAL Marlene Guzmán * [facility], [address] [facility] [id number] 0 04/18 CMP Potas sium mmol/L 3.5 5.1 4.0 FINAL Marlene Guzmán * [facility], [address] [facility] [id number] 0 04/18 CMP Sodiu m mmol/L 137.0 145.0 136 Low FINAL Marlene Guzmán * [facility], [address] [facility] [id number] 0 04/18 CMP Bilir ubin, total mg/dL 0.2 1.3 1.0 FINAL Marlene Guzmán * [facility], [address] [facility] [id number] 0 04/18 CMP Total prote in g/dL 6.3 8.2 7.3 FINAL Marlene Guzmán * [facility], [address] [facility] [id number] 0 04/18 [facility] other [place] See pipe organ mechanic apprentice d 12/20 [facility] other lab See pipe organ mechanic apprentice d 12/20 Misc other lab See pipe organ mechanic apprentice d 03/09 Free kappa / lambd a with K/L ratio , serum [place] light chain , free, serum , mg/dL mg/dL 0.33 1.94 4.35 High Test performed at [facility] on a Binding Site Optilite Analyzer that uses a turbidime tric method for analysis. Patient testing should not be performed using multiple methodolo gies due to analytica l variation seen between test methodolo gies. FINAL Marlene Guzmán * [facility] , [address] [facility] [address] [facility] [id number] 0 03/09 Free kappa / lambd a with K/L ratio , serum Lambd a light chain , free, serum , mg/dL mg/dL 0.57 2.63 3.83 High Test performed at [facility] on a Binding Site Optilite Analyzer that uses a turbidime tric method for analysis. Patient testing should not be performed using multiple methodolo gies due to analytica l variation seen between test methodolo gies. FINAL Marlene Guzmán * [facility] , [address] [facility] [address] [id number] 0 03/09 Free kappa / lambd a with K/L ratio , serum K/L light chain ratio , free, serum 0.26 1.65 1.14% FINAL Marlene Guzmán * [facility] , [address] [facility] [address] [id number] 0 03/09 CMP Album in g/dL 3.5 5.0 3.8 FINAL Marlene Guzmán * [facility] , [address] [facility] [address] [id number] 0 03/09 CMP Alkal ine phosp hatas e U/L 36.0 125.0 106 FINAL Marlene Guzmán * [facility] , [address] [facility] [address] [id number] 0 03/09 CMP ALT/S GPT U/L 0.0 34.0 37 High FINAL Marlene Guzmán * [facility] , [address] [facility] [address] [id number] 0 03/09 CMP AST/S GOT U/L 14.0 36.0 36 FINAL Marlene Ramirez * [facility] , [address] [facility] [address] [facility] [id number] 0 03/09 CMP BUN mg/dL 7.0 17.0 18.0 High FINAL Marlene Guzmán * [facility] , [address] [facility] [address] [facility] [id number] 0 03/09 CMP Calci um mg/dL 8.4 10.2 8.9 FINAL Marlene Guzmán * [facility] , [address] [facility] [address] [facility] [id number] 0 03/09 CMP Chlor nilson mmol/L 96.0 107.0 99 FINAL Marlene Guzmán * [facility] , [address] [facility] [address] [facility] [id number] 0 03/09 CMP CO2 mmol/L 22.0 30.0 [...] the 96 hour stability window. FINAL Marlene Guzmán * [facility] , [address] [facility] [address] [facility] [id number] 0 03/09 CMP Creat inine mg/dL 0.66 1.25 0.70 FINAL Marlene Guzmán * [facility] , [address] [facility] [address] [facility] [id number] 0 03/09 CMP GFR estim ate ml/min /1.73m ^2 97.1 GFR is calculate d using the CKD-EPI equation. FINAL Marlene Guzmán * [facility] , [address] [facility] [address] [id number] 0 03/09 CMP Gluco se mg/dL 74.0 100.0 363 Criti sami High FINAL Marlene Guzmán * [facility] , [address] [facility] [address] [facility] [id number] 0 03/09 CMP Potas sium mmol/L 3.5 5.1 3.9 FINAL Marlene Guzmán * [facility] , [address] [facility] [address] [facility] [id number] 0 03/09 CMP Sodiu m mmol/L 137.0 145.0 134 Low FINAL Marlene Guzmán * [facility] , [address] [facility] [address] [facility] [id number] 0 03/09 CMP Bilir ubin, total mg/dL 0.2 1.3 1.1 FINAL Marlene Guzmán * [facility] , [address] [facility] [address] [facility] [id number] 0 03/09 CMP Total prote in g/dL 6.3 8.2 7.3 FINAL Marlene Guzmán * [facility] , [address] [facility] [address] [facility] [id number] 0 03/09 CBC w/ auto diff WBC K/uL 3.0 8.9 7.1 FINAL Marlene Guzmán [place] [facility] [place] [facility] , [address] [place] [id number] 0 03/09 CBC w/ auto diff HGB g/dL 11.3 15.2 14.4 FINAL Marlene Guzmán [place] [facility] [place] [facility] , [address] [place] [id number] 0 03/09 CBC w/ auto diff PLT K/uL 113.0 364.0 179 FINAL Marlene Guzmán [place] [facility] [place] [facility] , [address] [place] [id number] 0 03/09 CBC w/ auto diff Tammy # (ANC) K/uL 1.6 6.6 4.7 FINAL Marlene Guzmán [place] [facility] [place] [facility] , [address] [place] [id number] 0 03/09 CBC w/ auto diff Tammy % % 43.0 74.0 65.7 FINAL Marlene Guzmán [place] [facility] [place] [facility] , [address] [place] [id number] 0 03/09 CBC w/ auto diff IG % % 0.0 0.5 0.6 High FINAL Marlene Guzmán [place] [facility] [place] [facility] , [address] [place] [id number] 0 03/09 CBC w/ auto diff IG # K/uL 0.0 0.03 0.04 High FINAL Marlene Guzmán [place] [facility] [place] [facility] , [address] [place] [id number] 0 03/09 CBC w/ auto diff LY % % 14.0 41.0 25.8 FINAL Marlene Guzmán [place] [facility] [place] [facility] , [address] [place] [id number] 0 03/09 CBC w/ auto diff MO % % 6.0 15.0 6.2 FINAL Marlene Guzmán [place] [facility] [place] [facility] , [address] [place] [id number] 0 03/09 CBC w/ auto diff EO % % 0.0 7.0 1.1 FINAL Marlene Guzmán [place] [facility] [place] [facility] , [address] [place] [id number] 0 03/09 CBC w/ auto diff BA % % 0.0 2.0 0.6 FINAL Marlene Guzmán [place] [facility] [place] [facility] , [address] [place] [id number] 0 03/09 CBC w/ auto diff LY # K/uL 0.4 3.6 1.8 FINAL Marlene Guzmán [place] [facility] [place] [facility] , [address] [place] [id number] 0 03/09 CBC w/ auto diff MO # K/uL 0.2 1.3 0.4 FINAL Marlene Guzmán [place] [facility] [place] [facility] , [address] [place] [id number] 0 03/09 CBC w/ auto diff EO # K/uL 0.0 0.6 0.1 FINAL Marlene Guzmán [place] [facility] [place] [facility] , [address] [place] [id number] 0 03/09 CBC w/ auto diff BA # K/uL 0.0 0.2 0.0 FINAL Marlene Guzmán [place] [facility] [place] [facility] , [address] [place] [id number] 0 03/09 CBC w/ auto diff NRBC % #/100W BC 0.0 0.2 0.0 FINAL Marlene Guzmán [place] [facility] [place] [facility] , [address] [place] [id number] 0 03/09 CBC w/ auto diff RBC M/uL 3.9 5.1 5.08 FINAL Marlene Guzmán [place] [facility] [place] [facility] , [address] [place] [id number] 0 03/09 CBC w/ auto diff HCT % 35.0 48.0 42.9 FINAL Marlene Guzmán [facility] , [address] [place] [facility] [id number] 0 03/09 CBC w/ auto diff MCV fL 80.0 104.0 84.4 FINAL Marlene Guzmán [facility] , [address] [facility] [address] [place] [facility] [id number] 0 03/09 CBC w/ auto diff MCH pg 26.0 35.0 28.3 FINAL Marlene Guzmán [facility] , [address] [facility] [address] [facility] [id number] 0 03/09 CBC w/ auto diff MCHC g/dL 30.0 35.0 33.6 FINAL Marlene Guzmán [facility] , [address] [facility] [address] [facility] [id number] 0 03/09 CBC w/ auto diff MPV fL 9.5 13.4 9.6 FINAL Marlene Guzmán [facility] , [address] [facility] [address] [facility] [id number] 0 03/09 CBC w/ auto diff RDW % 11.4 16.1 14.20 FINAL Marlene Guzmán [facility] , [address] [facility] [address] [facility] [id number] 0 03/09 Immun oglob ulin measu remen t IgG, quant mg/dL 610.0 1616.0 1080.49 Test performed at [facility] on a Binding Site Optilite Analyzer that uses a turbidime tric method for analysis. Patient testing should not be performed using multiple methodreal rocha due to analytica l variation seen between test methodreal rocha. FINAL Marlene Guzmán * [facility] , [address] [facility] [id number] 0 03/09 Immun oglob ulin measu remen t IgA, quant mg/dL 61.0 348.0 577.26 High Test performed at [facility] on a Binding Site Optilite Analyzer that uses a turbidime tric method for analysis. Patient testing should not be performed using multiple methodolo gies due to analytica l variation seen between test methodolo gies. FINAL Marlene Guzmán * [facility] , [facility] [address] [id number] 0 03/09 Immun oglob ulin measu remen t IgM, quant mg/dL 35.0 242.0 91.00 Test performed at [facility] on a Binding Site Optilite Analyzer that uses a turbidime tric method for analysis. Patient testing should not be performed using multiple methodolo gies due to analytica l variation seen between test methodolo gies. FINAL Marlene Guzmán * [facility] , [facility] [address] [id number] 0 03/09 Total prote in g/dL 6.3 8.2 7.1 FINAL Marlene Guzmán * [facility] , [facility] [address] [place] [address] [id number] 0 03/09 Album in, SPE g/dL 3.31 5.31 4.70 FINAL Marlene Guzmán * [facility] , [facility] [address] [id number] 0 03/09 Alpha -1 globu tony g/dL 0.19 0.42 0.23 FINAL Marlene Guzmán * [facility] , [facility] [address] [id number] 0 03/09 Alpha -2 globu tony g/dL 0.44 1.03 0.52 FINAL Marlene Guzmán * [facility] , [facility] [address] [id number] 0 03/09 Beta globu tony g/dL 0.52 1.05 0.80 FINAL Marlene Guzmán * [facility] , [address] [facility] [address] [id number] 0 03/09 Gamma globu tony g/dL 0.59 1.46 0.85 FINAL Marlene Guzmán * [facility] , [address] [facility] [address] [id number] 0 03/09 Elect Gemma layton in Lab resul t note Previou sly identif ied parapro teins detecte d in gamma region. Is now 0.3 and 0.4 gm/dL. Interpr eted and signed by Luis Guillermo MD on 025 FINAL Marlene Guzmán * [facility] , [facility] [address] [id number] 0 03/09 M-spi ke, SPE, g/dL g/dL 0.0 0.0 0.3 High FINAL Marlene Guzmán * [facility] , [address] [facility] [address] [id number] 0 03/09 M-spi ke 2, SPE g/dL 0.0 0.0 0.4 High FINAL Marlene Guzmán * [facility] , [address] [facility] [address] [id number] 0 04/03 Misc other lab See pipe organ mechanic apprentice d Medications Date Name Route Dose Frequency Instructions [...] pain Active Vital Signs Date Type Value 11/23/2023 Oxygen Saturation 97.00 11/23/2023 Respiratory Rate 16.00 11/23/2023 Heart Beat 83.00 11/23/2023 Body Temperature 98.20 11/23/2023 Pain Scale 0.00 11/23/2023 Height 66.00 11/23/2023 BMI 48.36 11/23/2023 BSA 2.37 11/23/2023 Intravascular Systolic 130 11/23/2023 Intravascular Diastolic 70 11/23/2023 Weight 299.60 04/25/2024 Oxygen Saturation 96.00 04/25/2024 Respiratory Rate 16.00 04/25/2024 Heart Beat 76.00 04/25/2024 Body Temperature 96.90 04/25/2024 Intravascular Systolic 148 04/25/2024 Intravascular Diastolic 92 04/25/2024 BSA 2.42 04/25/2024 BMI 50.60 04/25/2024 Height 66.00 04/25/2024 Weight 313.50 04/25/2024 Pain Scale 0.00 04/10/2025 Body Temperature 97.50 04/10/2025 Heart Beat 78.00 04/10/2025 Respiratory Rate 18.00 04/10/2025 Oxygen Saturation 97.00 04/10/2025 BSA 2.47 04/10/2025 Height 66.00 04/10/2025 Weight 329.80 04/10/2025 Pain Scale 7.00 04/10/2025 Intravascular Systolic 132 04/10/2025 Intravascular Diastolic 70 04/10/2025 BMI 53.23 Notes Section * HEALTHCARE LIAISON Follow-Up GYNECOLOGIC ONCOLOGY FOLLOW-UP VISIT Patient Name: JOSE ANGEL CH : 1960 Date of Visit: 11/23/2023 Referring Provider: Malissa Hernandez MD (SALES FORCE ADMINISTRATOR) Attending: Marlene Guzmán (Hematology/Oncology) Chief Complaint (Wireless Sales Manager 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 History of Present Illness (Wireless Sales Manager Oncology): 63 y.o.?? * Presented with c/o [...] & C with myosure * Pathology:?? EIN * 08/30/23 robotic assisted total laparoscopic hysterectomy, bilateral salpingo-oophorectomy * Pathology: focal residual atypical hyperplasia, negative for carcinoma?? Genetic Testing (Wireless Sales Manager Oncology): Interval History (Wireless Sales Manager Oncology) She is crying??when I walk in the office??today, stating that her left ear hurts because her neighbors on both sides are conspiring against her??by creating sound with their subwoofers and speakers that makes her left ear hurt, and her bed to vibrate. Other than that, she states she has had pinkish vaginal discharge??starting roughly 3 weeks after surgery.?? She does leak urine, but is fairly sure this is coming from the vagina.?? Having a little bit of vaginal pain,??and some burning with urination, but the urine itself does not look discolored??or smell foul.?? She states she is also having off-and-on abdominal cramps. ??Bowel movements are normal. ??No new fevers. Review of Systems: A complete 14-point review of systems is negative except as noted??in the above history of present illness. Past Medical History: Malignant melanoma Anemia Depression Schizophrenia/Schizoaffective disorder vs anxiety/depression/paranoia Diabetes mellitus type II Morbid obesity?? BMI?? 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 with myosure, D & C 06/28/23 skein spooler History: - 3 , 1 SAb Allergies: * Abilify * Beta-Blockers (Beta-Adrenergic Blocking Agts) * Biguanides * Cephalosporins * Corticosteroids (Glucocorticoids) * Kenalog * Latuda * Nitroimidazoles * Risperidone Analogues * Sulfa (Sulfonamide Antibiotics) * Tolterodine Analogues * cephalexin * gabapentin * metoprolol tartrate * metronidazole * risperidone * talc * triamcinolone acetonide * vancomycin Medications: * Cyclobenzaprine Oral 5 mg tablet PRN * Fluocinonide Topical Cream 0.05 % PRN * Hydroxyzine HCl Oral 25 mg tablet 1 TABLET(S) PO Q4-6H PRN * Miconazole Topical Powder 2 % 2 % powder prn * Sertraline Oral 50 mg tablet daily 75 mg * [place] (Hydrocodone-Acetaminophen Oral 5 mg-325 mg) 5-325 mg tablet po prn * Olanzapine Oral 2.5 mg tablet daily * Tums (Calcium Carbonate Oral Chewable) (400 mg) daily * Metformin Oral 500 mg tablet bid * Fluocinonide Topical Gel 0.05 % 0.05 % gel 1 UNIT Topical as directed * Methocarbamol Oral 500 mg tablet prn * Miscellaneous Drug PRN tacrolimus ointment * Omeprazole Oral Delayed Release Capsule 40 mg capsule,delayed release(DR/EC) daily * Calcium Carbonate Oral daily * Multivitamins Oral Tablet daily * Tylenol (Acetaminophen Oral) 500 mg capsule po prn * Ketoconazole Topical Cream 2 % PRN * Zeasorb AF (Miconazole Topical Powder 2 %) PRN Family History: PGF with colon cancer Father with colon cancer, heart disease Brother with HTN, diabetes mellitus Mother with diabetes mellitus Moth with colon polyps, HTN, family hx of heart disease/CVA/diabetes Social History: Single and .?? Never smoker.?? 12th grade education.?? Lives in Town home.?? 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 Three children.?? Son, Greg, is with her today. 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 Anxious, , female tearful??throughout visit. Abdomen:?? Upper abdominal diastasis, soft, incisions well healed.?? Mild generalized tenderness, no visceral tenderness.?? No palpable masses Extremities:?? Normal Pelvic:?? Normal external genitalia, no palpable abnormalities, vaginal cuff well healed without any signs of irritation, induration or recent bleeding. No pink within vaginal canal.?No bladder orrectal??prolapse. ?? Laboratory Data: CBC LabResults 02/19/2023 02/08/2023 02/06/2023 [...] 0.02 CMP LabResults 02/19/2023 02/08/2023 02/06/2023 02/19/2022 02/25/2021 Chemistries Glucose mg/dL 189 (H) 205 [...] 02/19/2023 02/08/2023 02/06/2023 02/19/2022 02/25/2021 Tumor Markers Imaging: Problems: * EIN * Monoclonal gammopathy of uncertain significance (disorder) ( First record:05/23/2019 Last record:05/23/2019; ) * Anemia * Cirrhosis of liver (disorder) * Depression * Diabetes mellitus type II * HTN * Hyperlipidemia * Malignant melanoma of skin (disorder) * Morbid obesity * Schizophrenia, schizoaffective, chronic * Sleep apnea * Work-up, hem/onc ( First record:05/23/2019 Last record:05/23/2019; ) Assessment & 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 y.o. 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 Pathology benign pink vaginal discharge, burning with urination:??Exam clinically clear??within the vagina.?? Given her history, I am questioning possible UTI.?? She will leave a clean-catch urine today. ??I will call with urinalysis and urine culture.?? She states she would like results mailed to her if we are notable to reach her on the phone. Pain Care Management: Pain Scale: 0 Patient Care needs: Depressions Status: Was not screened Reason: Patient Refused; Screening Date: 10/11/2023 Psycho-Social PHQ-9 Follow-up Plan (if applicable): Smoking Status: Smoking Tobacco : Never smoker; Smokeless Tobacco : none found; Vaping : none found Hafsa Farrell APRN, CNP Copy to: ? Electronically signed by Hafsa Farrell APRN, CNP 11/23/2023 10:56 CDT
--- OUTSIDE RECORDS SUMMARY | 2025-07-06 23:09 | XMS_ITS ---
Author Name Interface, [id number] lity Address [address] [facility] [address] [place] [address] [facility] Address [address] [facility] [address] [place] [address] Support Name Relationship Address Phone Greg Henry [...] TREATMENT 10/11/2023 APPOINTMENT POST OP 30 MIN 11/23/2023 LAB_ORDER Urine culture pa margaret 11/23/2023 [...] Visit OV 20 MIN Encounters Date Name 10/11/2023 Dysuria 10/11/2023 EIN 10/11/2023 General body pain Diagnostic Results Date Type Test Units Lower Limit Upper Limit Result Flag Comments Status Ordered By Specimen Source Lab Address 11/05 [facility] other lab See planning supervisor d 11/08 Mis other lab See planning supervisor d 11/22 Color (ua) Yellow FINAL [facility] [place], [address] [facility] [address] [place] [id number] 0 Phone: () - 11/22 Appea ying (ua) Clear FINAL [facility] [place], [address] [facility] [address] [place] [id number] 0 Phone: () - 11/22 Gluco se (ua), qual 500.0% Abnor mal FINAL [facility] [place], [address] [facility] [address] [place] [phone] 0 Phone: () - 11/22 Bilir ubin (ua) Negativ e FINAL [facility] [place], [address] [facility] [address] [place] [phone] 0 Phone: () - 11/22 Urina lysis , aceto ne or keton e chapo s measu remen t Negativ e FINAL [facility] [place], [address] [facility] [address] [place] [phone] 0 Phone: () - 11/22 Speci fic gravi ty (ua) 1.005 1.02 1.025% Abnor mal FINAL [facility] [place], [address] [facility] [address] [place] [phone] 0 Phone: () - 11/22 Blood (ua) Negativ e FINAL [facility] [place], [address] [facility] [address] [place] [phone] 0 Phone: () - 11/22 pH (ua) 5.0 8.0 6.0% FINAL [facility] [place], [address] [facility] [address] [place] [id number] 0 Phone: () - 11/22 Prote in (ua) Negativ e FINAL [facility] [place], [address] [place] [address] [address] [place] [id number] 0 Phone: () - 11/22 Urobi linog en (ua) 0.2 1.0 0.2% FINAL [facility] [place], [address] [place] [address] [address] [place] [id number] 0 Phone: () - 11/22 Nitri te (ua) Negativ e FINAL [facility] [place], [address] [facility] [address] [place] [id number] 0 Phone: () - 11/22 Leuko cyte jerson ase (ua), qual Negativ e FINAL [facility] [place], [address] [facility] [address] [place] [phone] 0 Phone: () - 11/22 UA comme nt 1 Dipstic k negativ e- Culture ordered per provide r FINAL [facility] [place], [address] [facility] [address] [facility] [phone] Phone: () - 11/22 Urine cultu re panel CULTU RE, URINE , ROUTI NE SEE NOTE Abnor mal CULTURE, URINE, ROUTINEMi microbial specialist Number: [id number] est Status: FinalSpec imen Source: UrineSpec imen [...] e, cephalexi nand loracarbe f. FINAL Hafsa Farrell [facility] [address] [facility] [id number] [phone] 12/18 [facility] other lab See planning supervisor d 04/18 Total prote in g/dL 6.3 8.2 6.9 FINAL Marlene Ramirez * [facility], [address] [id number] 0 04/18 Album in, SPE g/dL 3.31 5.31 3.97 FINAL Marlene Guzmán * [facility], [address] [id number] 0 04/18 Alpha -1 globu tony g/dL 0.19 0.42 0.26 FINAL Marlene Guzmán * [facility], [address] [id number] 0 04/18 Alpha -2 globu tony g/dL 0.44 1.03 0.63 FINAL Marlene Guzmán * [facility], [address] [id number] 0 04/18 Beta globu tony g/dL 0.52 1.05 0.95 FINAL Marlene Ramirez * [facility], [address] [id number] 0 04/18 Gamma globu tony g/dL 0.59 1.46 1.10 FINAL Marlene Guzmán * [facility], [address] [id number] 0 04/18 Gemma Rodriguez in Lab resul t note Previou sly identif ied parapro teins detecte d in gamma region. Were 0.3 and 0.4 gm/dL, now 0.3 and 0.3 gm/dL. Interpr eted and signed by Adrienne Swanson MD on 024 FINAL Marlene Guzmán * [facility], [address] [facility] [address] [id number] 0 04/18 M-spi ke, SPE, g/dL g/dL 0.0 0.0 0.3 High FINAL Marlene Guzmán * [facility], [address] [facility] [address] [id number] 0 04/18 M-spi ke 2, SPE g/dL 0.0 0.0 0.3 High FINAL Marleneanabel Guzmán * [facility], [facility]0 [facility] [address] [place] [address] [id number] 0 04/18 Immun oglob ulin measu remen t IgG, quant mg/dL 610.0 1616.0 946.67 Test performed at [facility] on a Binding SocialGO Optilite Analyzer that uses a turbidime tric method for analysis. Patient testing should not be performed using multiple methodolo gies due to analytica l variation seen between test methodolo gies. FINAL Marleneanabel Guzmán * [facility], [facility]0 [facility] [address] [place] [address] [id number] 0 04/18 Immun oglob ulin measu remen t IgA, quant mg/dL 61.0 348.0 493.08 High Test performed at [facility] on a Binding [employer] Optilite Analyzer that uses a turbidime tric method for analysis. Patient testing should not be performed using multiple methodolo gies due to analytica l variation seen between test methodolo gies. FINAL Marlene Guzmán * [facility], [address] [place] [address] [place] [address] [id number] 0 04/18 Immun oglob ulin measu remen t IgM, quant mg/dL 35.0 242.0 75.62 Test performed at [facility] on a Binding Site Optilite Analyzer that uses a turbidime tric method for analysis. Patient testing should not be performed using multiple methodolo gies due to analytica l variation seen between test methodolo gies. FINAL Marlene [facility], [facility]0 [facility] [address] [id number] 0 04/18 Free kappa / lambd a with K/L ratio , serum [place] light chain , free, serum , mg/dL mg/dL 0.33 1.94 3.62 High Test performed at [facility] on a Binding Site Optilite Analyzer that uses a turbidime tric method for analysis. Patient testing should not be performed using multiple methodolo gies due to analytica l variation seen between test methodolo gies. FINAL Marlene Rubi a [facility], [address] [facility] [address] [id number] 0 04/18 Free kappa / lambd a with K/L ratio , serum Lambd a light chain , free, serum , mg/dL mg/dL 0.57 2.63 3.13 High Test performed at [facility] on a Binding [employer] Optilite Analyzer that uses a turbidime tric method for analysis. Patient testing should not be performed using multiple methodolo gies due to analytica l variation seen between test methodolo gies. FINAL Marlene Rubi a [facility], [address] [id number] 0 04/18 Free kappa / lambd a with K/L ratio , serum K/L light chain ratio , free, serum 0.26 1.65 1.16% FINAL Marlene [facility], [address] [id number] 0 04/18 CBC w/ auto diff WBC K/uL 3.0 8.9 7.0 FINAL Marlene Rubi [facility], [address] [facility] [id number] 0 Phone: () - 04/18 CBC w/ auto diff HGB g/dL 11.3 15.2 14.0 FINAL [facility] [place], [address] [place] [id number] 0 Phone: () - 04/18 CBC w/ auto diff PLT K/uL 113.0 364.0 164 FINAL [facility] [place], [address] [place] [id number] 0 Phone: () - 04/18 CBC w/ auto diff Tammy # (ANC) K/uL 1.6 6.6 4.5 FINAL Marlene [facility] - [place], [address] [place] [id number] 0 Phone: () - 04/18 CBC w/ auto diff Tammy % % 43.0 74.0 64.0 FINAL [facility] - [place], [address] [place] [id number] 0 Phone: () - 04/18 CBC w/ auto diff IG % % 0.0 0.5 0.3 FINAL [facility] - [place], [address] [place] [id number] 0 Phone: () - 04/18 CBC w/ auto diff IG # K/uL 0.0 0.03 0.02 FINAL Marlene [facility] - [place], [address] [place] [id number] 0 Phone: () - 04/18 CBC w/ auto diff LY % % 14.0 41.0 28.2 FINAL Marlene [facility] - [place], [address] [place] [id number] 0 Phone: () - 04/18 CBC w/ auto diff MO % % 6.0 15.0 6.0 FINAL Marlene Guzmán [facility] [place], [address] [place] [id number] 0 Phone: () - 04/18 CBC w/ auto diff EO % % 0.0 7.0 1.1 FINAL [facility] - [place], [address] [place] [id number] 0 Phone: () - 04/18 CBC w/ auto diff BA % % 0.0 2.0 0.4 FINAL [facility] - [place], [address] [place] [id number] 0 Phone: () - 04/18 CBC w/ auto diff LY # K/uL 0.4 3.6 2.0 FINAL Marlene Guzmán [facility] [place], [address] [place] [id number] 0 Phone: () - 04/18 CBC w/ auto diff MO # K/uL 0.2 1.3 0.4 FINAL Marlene Ramirez [facility] [place], [address] [place] [id number] 0 Phone: () - 04/18 CBC w/ auto diff EO # K/uL 0.0 0.6 0.1 FINAL Marlene Ramirez [facility] [place], [address] [place] [id number] 0 Phone: () - 04/18 CBC w/ auto diff BA # K/uL 0.0 0.2 0.0 FINAL Marlene Ramirez [facility] - [place], [address] [place] [id number] 0 Phone: () - 04/18 CBC w/ auto diff NRBC % #/100W BC 0.0 0.2 0.0 FINAL Marlene Guzmán [facility] - [place], [address] [place] [id number] 0 Phone: () - 04/18 CBC w/ auto diff RBC M/uL 3.9 5.1 4.84 FINAL Marlene Guzmán [facility] [place], [address] [place] [id number] 0 Phone: () - 04/18 CBC w/ auto diff HCT % 35.0 48.0 40.4 FINAL Marlene [facility]i [facility] - [place], [address] [place] [id number] 0 Phone: () - 04/18 CBC w/ auto diff MCV fL 80.0 104.0 83.5 FINAL Marlene [facility] - [place], [address] [place] [id number] 0 Phone: () - 04/18 CBC w/ auto diff MCH pg 26.0 35.0 28.9 FINAL Marlene Rubi [facility] - [place], [address] [place] [id number] 0 Phone: () - 04/18 CBC w/ auto diff MCHC g/dL 30.0 35.0 34.7 FINAL Marlene [facility]i [facility] - [place], [address] [place] [id number] 0 Phone: () - 04/18 CBC w/ auto diff MPV fL 9.5 13.4 9.7 FINAL Marlene [facility] - [place], [address] [place] [id number] 0 Phone: () - 04/18 CBC w/ auto diff RDW % 11.4 16.1 13.80 FINAL Marlene [facility] - [place], [address] [place] [id number] 0 Phone: () - 04/18 CMP Album in g/dL 3.5 5.0 4.0 FINAL Marlene Guzmán * [facility] [place], [address] [place] [id number] 0 04/18 CMP Alkal ine phosp hatas e U/L 36.0 125.0 105 FINAL Marlene Guzmán * [facility] [place], [address] [facility] [id number] 0 04/18 CMP ALT/S GPT U/L 0.0 34.0 35 High FINAL Marlene Guzmán * [facility], [address] [facility] [id number] 0 04/18 CMP AST/S GOT U/L 14.0 36.0 44 High FINAL Marlene Guzmán * [facility], [address] [facility] [id number] 0 04/18 CMP BUN mg/dL 7.0 17.0 21.0 High FINAL Marlene Guzmán * [facility], [address] [facility] [id number] 0 04/18 CMP Calci um mg/dL 8.4 10.2 8.8 FINAL Marlene Guzmán * [facility], [address] [facility] [id number] 0 04/18 CMP Chlor nilson mmol/L 96.0 107.0 106 FINAL Marlene Guzmán * [facility], [address] [facility] [id number] 0 04/18 CMP CO2 mmol/L 22.0 30.0 [...] hour stability window. FINAL Marlene Guzmán * [facility], [address] [facility] [id number] 0 04/18 CMP Creat inine mg/dL 0.66 1.25 0.70 FINAL Marlene Guzmán * [facility], [address] [facility] [address] [id number] 0 04/18 CMP GFR estim ate ml/min /1.73m ^2 97.7 GFR is calculate d using the CKD-EPI equation. FINAL Marlene Stroud [facility], [address] [facility] [address] [id number] 0 04/18 CMP Gluco se mg/dL 74.0 100.0 267 High FINAL Marlene Guzmán * [facility], [facility]0 [facility] [address] [id number] 0 04/18 CMP Potas sium mmol/L 3.5 5.1 4.0 FINAL Marlene Guzmán * [facility], [address] [facility] [address] [id number] 0 04/18 CMP Sodiu m mmol/L 137.0 145.0 136 Low FINAL Marlene Guzmán * [facility], [address] [facility] [facility] [address] [id number] 0 04/18 CMP Bilir ubin, total mg/dL 0.2 1.3 1.0 FINAL Marlene Guzmán * [facility], [address] [id number] 0 04/18 CMP Total prote in g/dL 6.3 8.2 7.3 FINAL Marlene Guzmán * [facility], [address] [id number] 0 04/18 [facility] other lab See planning supervisor d 12/20 Mis other lab See planning supervisor d 12/20 [facility] other lab See planning supervisor d 03/09 Free kappa / lambd a with K/L ratio , serum [place] light chain , free, serum , mg/dL mg/dL 0.33 1.94 4.35 High Test performed at [facility] on a Binding Site Optilite Analyzer that uses a turbidime tric method for analysis. Patient testing should not be performed using multiple methodolo gies due to analytica l variation seen between test methodolo gies. FINAL Marlene Guzmán * [facility] , [address] [facility] [address] [facility] [id number] 0 03/09 Free kappa / lambd a with K/L ratio , serum Lambd [place] light chain , free, serum , mg/dL mg/dL 0.57 2.63 3.83 High Test performed at [facility] on a Binding Site Optilite Analyzer that uses a turbidime tric method for analysis. Patient testing should not be performed using multiple methodolo gies due to analytica l variation seen between test methodolo gies. FINAL Marlene Guzmán * [facility] , [address] [facility] [address] [id number] 0 03/09 Free kappa / lambd a with K/L ratio , serum K/L light chain ratio , free, serum 0.26 1.65 1.14% FINAL Marlene Guzmán * [facility] , [address] [facility] [address] [id number] 0 03/09 CMP Album in g/dL 3.5 5.0 3.8 FINAL Marlene Guzmán * [facility] , [address] [facility] [address] [id number] 0 03/09 CMP Alkal ine phosp hatas e U/L 36.0 125.0 106 FINAL Marlene Guzmán * [facility] , [address] [facility] [address] [facility] [id number] 0 03/09 CMP ALT/S GPT U/L 0.0 34.0 37 High FINAL Marlene Guzmán * [facility] , [address] [facility] [id number] 0 03/09 CMP AST/S GOT U/L 14.0 36.0 36 FINAL Marlene Guzmán * [facility] , [address] [facility] [id number] 0 03/09 CMP BUN mg/dL 7.0 17.0 18.0 High FINAL Marlene Guzmán * [facility] , [address] [facility] [id number] 0 03/09 CMP Calci um mg/dL 8.4 10.2 8.9 FINAL Marlene Guzmán * [facility] , [address] [facility] [id number] 0 03/09 CMP Chlor nilson mmol/L 96.0 107.0 99 FINAL Marlene Guzmán * [facility] , [address] [facility] [id number] 0 03/09 CMP CO2 mmol/L 22.0 30.0 [...] hour stability window. FINAL Marleneanabel Guzmán * [facility] , [address] [facility] [id number] 0 03/09 CMP Creat inine mg/dL 0.66 1.25 0.70 FINAL Marlene Guzmán * [facility] , [address] [facility] [id number] 0 03/09 CMP GFR estim ate ml/min /1.73m ^2 97.1 GFR is calculate d using the CKD-EPI equation. FINAL Marlene Ramirez * [facility] , [address] [facility] [id number] 0 03/09 CMP Gluco se mg/dL 74.0 100.0 363 Criti sami High FINAL Marlene Ramirez * [facility] , [address] [facility] [id number] 0 03/09 CMP Potas sium mmol/L 3.5 5.1 3.9 FINAL Marlene Ramirez * [facility] , [address] [facility] [id number] 0 03/09 CMP Sodiu m mmol/L 137.0 145.0 134 Low FINAL Marlene Ramirez * [facility] , [address] [facility] [id number] 0 03/09 CMP Bilir ubin, total mg/dL 0.2 1.3 1.1 FINAL Marlene Ramirez * [facility] , [address] [facility] [id number] 0 03/09 CMP Total prote in g/dL 6.3 8.2 7.3 FINAL Marlene Guzmán * [facility] , [address] [facility] [id number] 0 03/09 CBC w/ auto diff WBC K/uL 3.0 8.9 7.1 FINAL Marlene Guzmán [place] [facility] [place] [facility] , [address] [place] [id number] 0 03/09 CBC w/ auto diff HGB g/dL 11.3 15.2 14.4 FINAL Marlene Guzmán [place] [facility] [place] [facility] , [address] [place] [id number] 0 03/09 CBC w/ auto diff PLT K/uL 113.0 364.0 179 FINAL Marlene Guzmán [place] [facility] [place] [facility] , [address] [place] [id number] 0 03/09 CBC w/ auto diff Tammy # (ANC) K/uL 1.6 6.6 4.7 FINAL Marlene Guzmán [place] [facility] [place] [facility] , [address] [place] [id number] 0 03/09 CBC w/ auto diff Tammy % % 43.0 74.0 65.7 FINAL Marlene Guzmán [place] [facility] [place] [facility] , [address] [place] [id number] 0 03/09 CBC w/ auto diff IG % % 0.0 0.5 0.6 High FINAL Marlene Guzmán [place] [facility] [place] [facility] , [address] [place] [id number] 0 03/09 CBC w/ auto diff IG # K/uL 0.0 0.03 0.04 High FINAL Marlene Guzmán [place] [facility] [place] [facility] , [address] [place] [id number] 0 03/09 CBC w/ auto diff LY % % 14.0 41.0 25.8 FINAL Marlene Guzmán [place] [facility] [place] [facility] , [address] [place] [id number] 0 03/09 CBC w/ auto diff MO % % 6.0 15.0 6.2 FINAL Marlene Guzmán [place] [facility] [place] [facility] , [address] [place] [id number] 0 03/09 CBC w/ auto diff EO % % 0.0 7.0 1.1 FINAL Marlene Guzmán [place] [facility] [place] [facility] , [address] [place] [id number] 0 03/09 CBC w/ auto diff BA % % 0.0 2.0 0.6 FINAL Marlene Guzmán [place] [facility] [place] [facility] , [address] [place] [id number] 0 03/09 CBC w/ auto diff LY # K/uL 0.4 3.6 1.8 FINAL Marlene Guzmán [place] [facility] [place] [facility] , [address] [place] [id number] 0 03/09 CBC w/ auto diff MO # K/uL 0.2 1.3 0.4 FINAL Marlene Guzmán [place] [facility] [place] [facility] , [address] [place] [id number] 0 03/09 CBC w/ auto diff EO # K/uL 0.0 0.6 0.1 FINAL Marlene Guzmán [place] [facility] [place] [facility] , [address] [place] [id number] 0 03/09 CBC w/ auto diff BA # K/uL 0.0 0.2 0.0 FINAL Marlene Guzmán [place] [facility] [place] [facility] , [address] [place] [id number] 0 03/09 CBC w/ auto diff NRBC % #/100W BC 0.0 0.2 0.0 FINAL Marlene Guzmán [place] [facility] [place] [facility] , [address] [place] [id number] 0 03/09 CBC w/ auto diff RBC M/uL 3.9 5.1 5.08 FINAL Marlene Guzmán [place] [facility] [place] [facility] , [address] [place] [id number] 0 03/09 CBC w/ auto diff HCT % 35.0 48.0 42.9 FINAL Marlene Guzmán [place] [facility] [place] [facility] , [address] [place] [id number] 0 03/09 CBC w/ auto diff MCV fL 80.0 104.0 84.4 FINAL Marlene Guzmán [place] [facility] [place] [facility] , [address] [place] [id number] 0 03/09 CBC w/ auto diff MCH pg 26.0 35.0 28.3 FINAL Marlene Guzmán [place] [facility] [place] [facility] , [address] [place] [id number] 0 03/09 CBC w/ auto diff MCHC g/dL 30.0 35.0 33.6 FINAL Marlene Guzmán [place] [facility] [place] [facility] , [address] [place] [id number] 0 03/09 CBC w/ auto diff MPV fL 9.5 13.4 9.6 FINAL Marlene Guzmán [place] [facility] [place] [facility] , [address] [place] [id number] 0 03/09 CBC w/ auto diff RDW % 11.4 16.1 14.20 FINAL Marlene Guzmán [place] [facility] [place] [facility] , [address] [place] [id number] 0 03/09 Total prote in g/dL 6.3 8.2 7.1 FINAL Marlene Guzmán * [place] [facility] [place] [facility] , [address] [place] [id number] 0 03/09 Album in, SPE g/dL 3.31 5.31 4.70 FINAL Marlene Guzmán * [facility] , [address] [address] [id number] 0 03/09 Alpha -1 globu tony g/dL 0.19 0.42 0.23 FINAL Marlene Guzmán * [facility] , [address] [facility] [id number] 0 03/09 Alpha -2 globu tony g/dL 0.44 1.03 0.52 FINAL Marlene Guzmán * [facility] , [address] [id number] 0 03/09 Beta globu tony g/dL 0.52 1.05 0.80 FINAL Marlene Guzmán * [facility] , [address] [id number] 0 03/09 Gamma globu tony g/dL 0.59 1.46 0.85 FINAL Marlene Guzmán * [facility] , [address] [id number] 0 03/09 Elect Gemma layton in Lab resul t note Previou sly identif ied parapro teins detecte d in gamma region. Is now 0.3 and 0.4 gm/dL. Interpr eted and signed by Luis Guillermo MD on 025 FINAL Marlene Guzmán * [facility] , [address] [facility] [id number] 0 03/09 M-spi ke, SPE, g/dL g/dL 0.0 0.0 0.3 High FINAL Marlene Guzmán * [facility] , [address] [id number] 0 03/09 M-spi ke 2, SPE g/dL 0.0 0.0 0.4 High FINAL Marlene Guzmán * [facility] , [address] [facility] [id number] 0 03/09 Immun oglob ulin measu remen t IgG, quant mg/dL 610.0 1616.0 1080.49 Test performed at [facility] on a Binding Site Optilite Analyzer that uses a turbidime tric method for analysis. Patient testing should not be performed using multiple methodolo gies due to analytica l variation seen between test methodolo gies. FINAL Marlene Ramirez * [facility] , [address] [facility] [id number] 0 03/09 Immun oglob ulin measu remen t IgA, quant mg/dL 61.0 348.0 577.26 High Test performed at [facility] on a Binding Site Optilite Analyzer that uses a turbidime tric method for analysis. Patient testing should not be performed using multiple methodolo gies due to analytica l variation seen between test methodolo gies. FINAL Marlene Ramirez * [facility] , [address] [facility] [id number] 0 03/09 Immun oglob ulin measu remen t IgM, quant mg/dL 35.0 242.0 91.00 Test performed at [facility] on a Binding Site Optilite Analyzer that uses a turbidime tric method for analysis. Patient testing should not be performed using multiple methodolo gies due to analytica l variation seen between test methodolo gies. FINAL Marlene Guzmán * [facility] , [address] [facility] [id number] 0 04/03 [facility] other lab See attache malave Medications Date Name Route Dose Frequency Instructions Start Date End Date Status Fill Status Indication 03/05 Hydrocod one-Acet aminophe n Oral 5 mg-325 mg po prn active 03/02 Cycloben zaprine Oral PRN active 07/13 /2021 Miconazo le Topical Powder 2 % prn [...] pain Active Vital Signs Date Type Value 10/11/2023 BMI 47.71 10/11/2023 Height 66.00 10/11/2023 Weight 295.60 10/11/2023 Pain Scale 0.00 10/11/2023 BSA 2.36 10/11/2023 Oxygen Saturation 97.00 10/11/2023 Respiratory Rate 16.00 10/11/2023 Heart Beat 78.00 10/11/2023 Body Temperature 98.10 10/11/2023 Intravascular Systolic 128 10/11/2023 Intravascular Diastolic 80 11/23/2023 Pain Scale 0.00 11/23/2023 Intravascular Systolic 130 11/23/2023 Intravascular Diastolic 70 11/23/2023 BSA 2.37 11/23/2023 BMI 48.36 11/23/2023 Height 66.00 11/23/2023 Weight 299.60 11/23/2023 Oxygen Saturation 97.00 11/23/2023 Respiratory Rate 16.00 11/23/2023 Body Temperature 98.20 11/23/2023 Heart Beat 83.00 04/25/2024 Body Temperature 96.90 04/25/2024 Heart Beat 76.00 04/25/2024 BSA 2.42 04/25/2024 BMI 50.60 04/25/2024 Height 66.00 04/25/2024 Weight 313.50 04/25/2024 Pain Scale 0.00 04/25/2024 Intravascular Systolic 148 04/25/2024 Intravascular Diastolic 92 04/25/2024 Oxygen Saturation 96.00 04/25/2024 Respiratory Rate 16.00 04/10/2025 Body Temperature 97.50 04/10/2025 BMI 53.23 04/10/2025 Height 66.00 04/10/2025 Weight 329.80 04/10/2025 BSA 2.47 04/10/2025 Intravascular Systolic 132 04/10/2025 Intravascular Diastolic 70 04/10/2025 Oxygen Saturation 97.00 04/10/2025 Respiratory Rate 18.00 04/10/2025 Heart Beat 78.00 04/10/2025 Pain Scale 7.00 Notes Section * 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 History of Present Illness ([employer] And Explosives Handler Oncology): 63 y.o.?? 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 She reports that she now splits her time between home and staying with her son.?? She called a few weeks ago with some concerns for mild vaginal bleeding but hasn't had anything in a couple of weeks.?? She did struggle with diarrhea earlier this month and was seen in the ED on 10/01/[address] showed proctocolitis. C. diff negative. She was discharged with recommendations for close GI follow up.?? Shereports that overall the stools have improved although she did have loose stools today.?? No feversor chills or abdominal pain.?? 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: - 3 , 1 SAb Allergies: * Abilify * Beta-Blockers (Beta-Adrenergic Blocking Agts) * Biguanides * Cephalosporins * Corticosteroids (Glucocorticoids) * Kenalog * Latuda * Nitroimidazoles * Risperidone Analogues * Sulfa (Sulfonamide Antibiotics) * Tolterodine Analogues * cephalexin * gabapentin * metoprolol tartrate * metronidazole * risperidone * talc * triamcinolone acetonide * vancomycin Medications: * Calcium Carbonate Oral daily * Fluocinonide Topical Cream 0.05 % PRN * Ketoconazole Topical Cream 2 % PRN * Tylenol (Acetaminophen Oral) 500 mg capsule po prn * Cyclobenzaprine Oral 5 mg tablet PRN * Zeasorb AF (Miconazole Topical Powder 2 %) PRN * Omeprazole Oral Delayed Release Capsule 40 mg capsule,delayed release(DR/EC) daily * Tums (Calcium Carbonate Oral Chewable) (400 mg) daily * Miconazole Topical Powder 2 % 2 % powder prn * Multivitamins Oral Tablet daily * Sertraline Oral 50 mg tablet daily 75 mg * Fluocinonide Topical Gel 0.05 % 0.05 % gel 1 UNIT Topical as directed * Miscellaneous Drug PRN tacrolimus ointment * Hydroxyzine HCl Oral 25 mg tablet 1 TABLET(S) PO Q4-6H PRN * Metformin Oral 500 mg tablet bid * Methocarbamol Oral 500 mg tablet prn * Mears (Hydrocodone-Acetaminophen Oral 5 mg-325 mg) 5-325 mg tablet po prn * Olanzapine Oral 2.5 mg tablet daily Family History: PGF with colon cancer Father with colon cancer, heart disease Brother with HTN, diabetes mellitus Mother with diabetes mellitus Moth with colon polyps, HTN, family hx of heart disease/CVA/diabetes Social History: Single and .?? Never smoker.?? 12th grade education.?? Lives in Town home.?? 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 Three children.?? Son, Greg, is with her today. 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 Anxious, , female with somewhat pressured speech Abdomen:?? Upper abdominal diastasis, soft, incisions well healed Extremities:?? Normal Pelvic:?? Normal external genitalia, no palpable abnormalities, vaginal cuff well healed without any signs of irritation, induration or recent bleeding.?? 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 y.o. 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 Pathology benign. Reviewedpathology, operative findings, expected recovery.?? She is recovering well, no further restrictions.?? 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
--- OUTSIDE RECORDS SUMMARY | 2025-07-06 23:10 | XMS_ITS ---
Author Name Interface, [id number] lity Address [address] [facility] [address] [place] [address] [facility] Oncology Address [address] [facility] [address] [place] [address] Support Name Relationship Address Phone Greg Henry [...] Ordered By Specimen Source Lab Address 11/05 [facility] other lab See client services assistant d 11/08 [facility] other lab See client services assistant d 11/22 Color (ua) Yellow FINAL Hafsa Bud [place] [facility] [place], [address] [facility] [address] [place] [phone] 0 Phone: () - 11/22 Appea ying (ua) Clear FINAL Hafsaanabel Rubi a [facility] - [place], [address] [place] [address] [address] [place] [phone] Phone: () - 11/22 Gluco se (ua), qual 500.0% Abnor mal FINAL Hafsaanabel Rubi a [facility] - [place], [address] [place] [address] [address] [place] [phone] Phone: () - 11/22 Bilir ubin (ua) Negativ e FINAL Hafsaanabel Rubi a [facility] - [place], [address] [place] [address] [address] [place] [phone] Phone: () - 11/22 Urina lysis , aceto ne or keton e chapo s measu remen t Negativ e FINAL Hafsaanabel Rubi [facility] - [place], [address] [place] [address] [address] [place] [phone] 0 Phone: () - 11/22 Speci fic gravi ty (ua) 1.005 1.02 1.025% Abnor mal FINAL Hafsaanabel Rubi a [facility] - [place], [address] [place] [address] [address] [place] [phone] Phone: () - 11/22 Blood (ua) Negativ e FINAL Hafsaanabel Rubi a [facility] - [place], [address] [place] [address] [address] [place] [phone] Phone: () - 11/22 pH (ua) 5.0 8.0 6.0% FINAL Hafsaanabel [place] [facility] [place], [address] [place] [address] [address] [place] [phone] 0 Phone: () - 11/22 Prote in (ua) Negativ e FINAL Hafsaanabel Rubi [facility] - [place], [address] [place] [address] [address] [place] [phone] 0 Phone: () - 11/22 Urobi linog en (ua) 0.2 1.0 0.2% FINAL Hafsaanabel [facility] [facility] [place], [address] [place] [address] 210 [facility] [phone] Phone: () - 11/22 Nitri te (ua) Negativ e FINAL Hafsa Rubi a [facility], [address] [place] [address] 210 [facility] [phone] Phone: () - 11/22 Leuko cyte jerson ase (ua), qual Negativ e FINAL Hafsa Rubi [facility], [address] [place] [address] [phone] Phone: () - 11/22 UA comme nt 1 Dipstic k negativ e- Culture ordered per provide r FINAL Hafsa Rubi [facility], [address] [place] [address] [phone] Phone: () - 11/22 Urine cultu re panel CULTU RE, URINE , ROUTI NE SEE NOTE Abnor mal 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 FINAL Hafsaanabel Farrell [facility] [address] [facility] [id number] 4 12/18 [facility] other lab See d 04/18 Total prote in g/dL 6.3 8.2 6.9 FINAL Marlene Guzmán * [facility], [facility] [address] [place] [address] [id number] 04/18 Album in, SPE g/dL 3.31 5.31 3.97 FINAL Marlene Guzmán * [facility], [facility]0 [facility] [address] [place] [address] [id number] 0 04/18 Alpha -1 globu tony g/dL 0.19 0.42 0.26 FINAL Marlene Guzmán * [facility], [address] [facility] [address] [id number] 0 04/18 Alpha -2 globu tony g/dL 0.44 1.03 0.63 FINAL Marlene Guzmán * [facility], [address] [facility] [address] [id number] 0 04/18 Beta globu tony g/dL 0.52 1.05 0.95 FINAL Marlene Guzmán * [facility], [address] [facility] [address] [id number] 0 04/18 Gamma globu tony g/dL 0.59 1.46 1.10 FINAL Marlene Guzmán * [facility], [facility]0 [facility] [address] [place] [address] [id number] 0 04/18 Elect abiola jackson Gemma in Lab resul t note Previou sly identif ied parapro teins detecte d in gamma region. Were 0.3 and 0.4 gm/dL, now 0.3 and 0.3 gm/dL. Interpr eted and signed by Adrienne Swanson MD on 024 FINAL Marlene Guzmán * [facility], [facility] [address] [place] [address] [id number] 04/18 M-spi ke, SPE, g/dL g/dL 0.0 0.0 0.3 High FINAL Marlene Guzmán * [facility], [address] [facility] [address] [id number] 04/18 M-spi ke 2, SPE g/dL 0.0 0.0 0.3 High FINAL Marlene Guzmán * [facility], [facility] [address] [place] [address] [id number] 0 04/18 Immun oglob ulin measu remen t IgG, quant mg/dL 610.0 1616.0 946.67 Test performed at [facility] on a Binding Site Optilite Analyzer that uses a turbidime tric method for analysis. Patient testing should not be performed using multiple methodreal gikim due to analytica l variation seen between test methodreal rocha. FINAL Marlene Guzmán * [facility] [address] [place] [address] [id number] 0 04/18 Immun oglob ulin measu remen t IgA, quant mg/dL 61.0 348.0 493.08 High Test performed at [facility] on a Binding Site Optilite Analyzer that uses a turbidime tric method for analysis. Patient testing should not be performed using multiple methodolo gies due to analytica l variation seen between test methodolo gies. FINAL Marlene Stroud [facility] [address] [place] [address] [id number] 0 04/18 Immun oglob ulin measu remen t IgM, quant mg/dL 35.0 242.0 75.62 Test performed at [facility] on a Binding Site Optilite Analyzer that uses a turbidime tric method for analysis. Patient testing should not be performed using multiple methodolo gies due to analytica l variation seen between test methodolo gies. FINAL Marlene Stroud [facility] a [address] [place] [address] [id number] 0 04/18 Free kappa / lambd a with K/L ratio , serum Jeff light chain , free, serum , mg/dL mg/dL 0.33 1.94 3.62 High Test performed at [facility] on a Binding Site Optilite Analyzer that uses a turbidime tric method for analysis. Patient testing should not be performed using multiple methodolo gies due to analytica l variation seen between test methodolo gies. FINAL Marlene Guzmán * Jann a [address] [place] [address] [id number] 0 04/18 Free kappa / lambd a with K/L ratio , serum Lambd a light chain , free, serum , mg/dL mg/dL 0.57 2.63 3.13 High Test performed at [facility] on a Binding Site Optilite Analyzer that uses a turbidime tric method for analysis. Patient testing should not be performed using multiple methodolo gies due to analytica l variation seen between test methodolo gies. FINAL Marlene Stroud [facility] [address] [place] [address] [id number] 0 04/18 Free kappa / lambd a with K/L ratio , serum K/L light chain ratio , free, serum 0.26 1.65 1.16% FINAL Marlene Guzmán * [place] [facility] [place], [address] [facility] [place] [place] [id number] 0 04/18 CBC w/ auto diff WBC K/uL 3.0 8.9 7.0 FINAL Marlene [place] [facility] - [place], [address] [place] [id number] 0 Phone: () - 04/18 CBC w/ auto diff HGB g/dL 11.3 15.2 14.0 FINAL Marlene Rubi a [facility] - [place], [address] [place] [id number] 0 Phone: () - 04/18 CBC w/ auto diff PLT K/uL 113.0 364.0 164 FINAL Marlene Rubi a [facility] - [place], [address] [place] [id number] 0 Phone: () - 04/18 CBC w/ auto diff Tammy # (ANC) K/uL 1.6 6.6 4.5 FINAL Marlene pagan [facility] - [place], [address] [place] [id number] 0 Phone: () - 04/18 CBC w/ auto diff Tammy % % 43.0 74.0 64.0 FINAL Marlene pagan [facility] - [place], [address] [place] [id number] 0 Phone: () - 04/18 CBC w/ auto diff IG % % 0.0 0.5 0.3 FINAL Marlene Rubi a [facility] - [place], [address] [place] [id number] 0 Phone: () - 04/18 CBC w/ auto diff IG # K/uL 0.0 0.03 0.02 FINAL Marlene Rubi a [facility] - [place], [address] [place] [id number] 0 Phone: () - 04/18 CBC w/ auto diff LY % % 14.0 41.0 28.2 FINAL Marlene pagan [facility] - [place], [address] [place] [id number] 0 Phone: () - 04/18 CBC w/ auto diff MO % % 6.0 15.0 6.0 FINAL Marlene pagan [facility] - [place], [address] [place] [id number] 0 Phone: () - 04/18 CBC w/ auto diff EO % % 0.0 7.0 1.1 FINAL Marlene pagan [facility] - [place], [address] [place] [id number] 0 Phone: () - 04/18 CBC w/ auto diff BA % % 0.0 2.0 0.4 FINAL Marlene pagan [facility] - [place], [address] [place] [id number] 0 Phone: () - 04/18 CBC w/ auto diff LY # K/uL 0.4 3.6 2.0 FINAL Marlene pagan [facility] - [place], [address] [place] [id number] 0 Phone: () - 04/18 CBC w/ auto diff MO # K/uL 0.2 1.3 0.4 FINAL Marlene pagan [facility] - [place], [address] [place] [id number] 0 Phone: () - 04/18 CBC w/ auto diff EO # K/uL 0.0 0.6 0.1 FINAL Marlene pagan [facility] - [place], [address] [place] [id number] 0 Phone: () - 04/18 CBC w/ auto diff BA # K/uL 0.0 0.2 0.0 FINAL Marlene pgaan Oncology - [place], [address] [place] [id number] 0 Phone: () - 04/18 CBC w/ auto diff NRBC % #/100W BC 0.0 0.2 0.0 FINAL Marlene [place] [facility] - [place], [address] [place] [id number] 0 Phone: () - 04/18 CBC w/ auto diff RBC M/uL 3.9 5.1 4.84 FINAL Marlene [place] [facility] - [place], [address] [place] [id number] 0 Phone: () - 04/18 CBC w/ auto diff HCT % 35.0 48.0 40.4 FINAL Marlene Ramirez [facility] - [place], [address] [place] [id number] 0 Phone: () - 04/18 CBC w/ auto diff MCV fL 80.0 104.0 83.5 FINAL Marlene Ramirez [facility] - [place], [address] [place] [id number] 0 Phone: () - 04/18 CBC w/ auto diff MCH pg 26.0 35.0 28.9 FINAL Marlene Guzmán [facility] - [place], [address] [place] [id number] 0 Phone: () - 04/18 CBC w/ auto diff MCHC g/dL 30.0 35.0 34.7 FINAL Marlene Guzmán [facility] - [place], [address] [place] [id number] 0 Phone: () - 04/18 CBC w/ auto diff MPV fL 9.5 13.4 9.7 FINAL Marlene Guzmán [facility] - [place], [address] [place] [id number] 0 Phone: () - 04/18 CBC w/ auto diff RDW % 11.4 16.1 13.80 FINAL Marlene Guzmán [place] [facility] [place], [address] [facility] [place] [id number] 0 Phone: ( 04/18 CMP Album in g/dL 3.5 5.0 4.0 FINAL Marlene Guzmán * [place] [facility] [place], [address] [facility] [id number] 0 04/18 CMP Alkal ine phosp hatas e U/L 36.0 125.0 105 FINAL Marlene Guzmán * [place] [facility], [address] [facility] [id number] 0 04/18 CMP ALT/S GPT U/L 0.0 34.0 35 High FINAL Marlene Guzmán * [place] [facility], [address] [facility] [id number] 0 04/18 CMP AST/S GOT U/L 14.0 36.0 44 High FINAL Marlene Guzmán * [place] [facility], [address] [facility] [id number] 0 04/18 CMP BUN mg/dL 7.0 17.0 21.0 High FINAL Marlene Guzmán * [place] [facility], [address] [facility] [id number] 0 04/18 CMP Calci um mg/dL 8.4 10.2 8.8 FINAL Marlene Guzmán * [place] [facility], [address] [facility] [id number] 0 04/18 CMP Chlor nilson mmol/L 96.0 107.0 106 FINAL Marlene Guzmán * [place] [facility], [address] [facility] [id number] 0 04/18 CMP CO2 mmol/L 22.0 30.0 [...] 96 hour stability window. FINAL [facility]lene Stroud [facility] [address] [id number] 0 04/18 CMP Creat inine mg/dL 0.66 1.25 0.70 FINAL Marlene Guzmán * [facility], [address] [place] [address] [id number] 0 04/18 CMP GFR estim ate ml/min /1.73m ^2 97.7 GFR is calculate d using the CKD-EPI equation. FINAL Marlene Stroud [facility] [address] [id number] 0 04/18 CMP Gluco se mg/dL 74.0 100.0 267 High FINAL Marlene Stroud [facility] [address] [place] [address] [id number] 0 04/18 CMP Potas sium mmol/L 3.5 5.1 4.0 FINAL Marlene Stroud [facility] [address] [id number] 0 04/18 CMP Sodiu m mmol/L 137.0 145.0 136 Low FINAL Marlene Stroud [facility] [address] [id number] 0 04/18 CMP Bilir ubin, total mg/dL 0.2 1.3 1.0 FINAL Marlene Stroud [facility], [address] [facility] [address] [id number] 0 04/18 CMP Total prote in g/dL 6.3 8.2 7.3 FINAL Marlene Guzmán * [place] [facility] [place], [address] [facility] [address] [id number] 0 04/18 [facility] other lab See client services assistant d 12/20 [facility] other lab See client services assistant d 12/20 [facility] other lab See client services assistant d 03/09 Free kappa / lambd a with K/L ratio , serum Jeff light chain , free, serum , mg/dL mg/dL 0.33 1.94 4.35 High Test performed at [facility] on a Binding Site Optilite Analyzer that uses a turbidime tric method for analysis. Patient testing should not be performed using multiple methodolo gies due to analytica l variation seen between test methodolo gies. FINAL Marlene Guzmán * [facility] , [address] [facility] [address] [id number] 0 03/09 Free kappa / lambd a with K/L ratio , serum Lambd a light chain , free, serum , mg/dL mg/dL 0.57 2.63 3.83 High Test performed at [facility] on a Binding Site Optilite Analyzer that uses a turbidime tric method for analysis. Patient testing should not be performed using multiple methodolo gies due to analytica l variation seen between test methodolo gies. FINAL Marlene Guzmán * [facility] , [address] [facility] [address] [id number] 0 03/09 Free kappa / lambd a with K/L ratio , serum K/L light chain ratio , free, serum 0.26 1.65 1.14% FINAL Marlene Guzmán * [facility] , [address] [facility] [address] [id number] 0 03/09 CMP Album in g/dL 3.5 5.0 3.8 FINAL Marlene Guzmán * [facility] , [address] [facility] [id number] 0 03/09 CMP Alkal ine phosp hatas e U/L 36.0 125.0 106 FINAL Marleneanabel Guzmán * [facility] , [address] [facility] [id number] 0 03/09 CMP ALT/S GPT U/L 0.0 34.0 37 High FINAL Marlene Guzmán * [facility] , [address] [facility] [id number] 0 03/09 CMP AST/S GOT U/L 14.0 36.0 36 FINAL Marlene Guzmán * [facility] , [address] [facility] [id number] 03/09 CMP BUN mg/dL 7.0 17.0 18.0 High FINAL Marlene Guzmán * [facility] , [address] [facility] [id number] 0 03/09 CMP Calci um mg/dL 8.4 10.2 8.9 FINAL Marleneanabel Guzmán * [facility] , [address] [facility] [id number] 0 03/09 CMP Chlor nilson mmol/L 96.0 107.0 99 FINAL Marleneanabel Guzmán * [facility] , [address] [facility] [id number] 0 03/09 CMP CO2 mmol/L 22.0 30.0 [...] hour stability window. FINAL Marleneanabel Guzmán * [facility] , [address] [facility] [address] [facility] [id number] 0 03/09 CMP Creat inine mg/dL 0.66 1.25 0.70 FINAL Marleneanabel Guzmán * [facility] , [address] [facility] [address] [facility] [id number] 0 03/09 CMP GFR estim ate ml/min /1.73m ^2 97.1 GFR is calculate d using the CKD-EPI equation. FINAL Marleneanabel Guzmán * [facility] , [address] [facility] [address] [facility] [id number] 0 03/09 CMP Gluco se mg/dL 74.0 100.0 363 Criti sami High FINAL Marlene Guzmán * [facility] , [address] [facility] [address] [facility] [id number] 0 03/09 CMP Potas sium mmol/L 3.5 5.1 3.9 FINAL Marlene Ramirez * [facility] , [address] [facility] [address] [facility] [id number] 0 03/09 CMP Sodiu m mmol/L 137.0 145.0 134 Low FINAL Marleneanabel Guzmán * [facility] , [address] [facility] [address] [facility] [id number] 0 03/09 CMP Bilir ubin, total mg/dL 0.2 1.3 1.1 FINAL Marleneanabel Guzmán * [facility] , [address] [facility] [address] [facility] [id number] 0 03/09 CMP Total prote in g/dL 6.3 8.2 7.3 FINAL Marlene Guzmán * [facility] , [address] [facility] [address] [facility] [id number] 0 03/09 CBC w/ auto diff WBC K/uL 3.0 8.9 7.1 FINAL Marlene Guzmán [place] [facility] , [address] [place] [id number] 0 03/09 CBC w/ auto diff HGB g/dL 11.3 15.2 14.4 FINAL Marlene Guzmán [place] [facility] , [address] [place] [id number] 0 03/09 CBC w/ auto diff PLT K/uL 113.0 364.0 179 FINAL Marlene Guzmán [place] [facility] , [address] [place] [id number] 0 03/09 CBC w/ auto diff Tammy # (ANC) K/uL 1.6 6.6 4.7 FINAL Marlene Guzmán [facility] [place] [facility] , [address] [place] [id number] 0 03/09 CBC w/ auto diff Tammy % % 43.0 74.0 65.7 FINAL Marlene Guzmán [place] [facility] , [address] [place] [id number] 0 03/09 CBC w/ auto diff IG % % 0.0 0.5 0.6 High FINAL Marlene Guzmán [place] [facility] , [address] [place] [id number] 0 03/09 CBC w/ auto diff IG # K/uL 0.0 0.03 0.04 High FINAL Marlene Guzmán [place] [facility] [place] [facility] , [address] [place] [id number] 0 03/09 CBC w/ auto diff LY % % 14.0 41.0 25.8 FINAL Marlene Guzmán [place] [facility] , [address] [place] [id number] 0 03/09 CBC w/ auto diff MO % % 6.0 15.0 6.2 FINAL Marlene Guzmán [place] [facility] , [address] [place] [id number] 0 03/09 CBC w/ auto diff EO % % 0.0 7.0 1.1 FINAL Marlene Guzmán [place] [facility] , [address] [place] [id number] 0 03/09 CBC w/ auto diff BA % % 0.0 2.0 0.6 FINAL Marlene Guzmán [place] [facility] , [address] [place] [id number] 0 03/09 CBC w/ auto diff LY # K/uL 0.4 3.6 1.8 FINAL Marlene Guzmán [place] [facility] [place] [facility] , [address] [place] [id number] 0 03/09 CBC w/ auto diff MO # K/uL 0.2 1.3 0.4 FINAL Marlene Guzmán [place] [facility] [place] [facility] , [address] [place] [id number] 0 03/09 CBC w/ auto diff EO # K/uL 0.0 0.6 0.1 FINAL Marlene Guzmán [place] [facility] , [address] [place] [id number] 0 03/09 CBC w/ auto diff BA # K/uL 0.0 0.2 0.0 FINAL Marlene Guzmán [place] [facility] [place] [facility] , [address] [place] [id number] 0 03/09 CBC w/ auto diff NRBC % #/100W BC 0.0 0.2 0.0 FINAL Marlene Guzmán [place] [facility] , [address] [place] [id number] 0 03/09 CBC w/ auto diff RBC M/uL 3.9 5.1 5.08 FINAL Marlene Guzmán [place] [facility] , [address] [place] [id number] 0 03/09 CBC w/ auto diff HCT % 35.0 48.0 42.9 FINAL Marlene Guzmán [facility] [place] [facility] , [address] [place] [id number] 0 03/09 CBC w/ auto diff MCV fL 80.0 104.0 84.4 FINAL Marlene Guzmán [facility] - [place] [facility] , [address] [place] [id number] 0 03/09 CBC w/ auto diff MCH pg 26.0 35.0 28.3 FINAL Marlene Guzmán [facility] [place] [facility] , [address] [place] [id number] 0 03/09 CBC w/ auto diff MCHC g/dL 30.0 35.0 33.6 FINAL Marlene Guzmán [facility] [place] [facility] , [address] [place] [id number] 0 03/09 CBC w/ auto diff MPV fL 9.5 13.4 9.6 FINAL Marlene Guzmán [place] [facility] , [address] [place] [id number] 0 03/09 CBC w/ auto diff RDW % 11.4 16.1 14.20 FINAL Marlene Guzmán [facility] , [address] [facility] [id number] 0 03/09 Total prote in g/dL 6.3 8.2 7.1 FINAL Marlene Guzmán * [facility] , [address] [facility] [address] [facility] [id number] 0 03/09 Album in, SPE g/dL 3.31 5.31 4.70 FINAL Marlene Guzmán * [facility] , [address] [facility] [address] [id number] 0 03/09 Alpha -1 globu tony g/dL 0.19 0.42 0.23 FINAL Marlene Guzmán * [facility] , [address] [facility] [address] [id number] 0 03/09 Alpha -2 globu tony g/dL 0.44 1.03 0.52 FINAL Marlene Guzmán * [facility] , [address] [facility] [address] [id number] 0 03/09 Beta globu tony g/dL 0.52 1.05 0.80 FINAL Marlene Guzmán * [facility] [facility] , [address] [id number] 0 03/09 Gamma globu tony g/dL 0.59 1.46 0.85 FINAL Marlene Guzmán * [facility] , [address] [id number] 0 03/09 Gemma Rodriguez in Lab resul t note Previou sly identif ied parapro teins detecte d in gamma region. Is now 0.3 and 0.4 gm/dL. Interpr eted and signed by Luis Guillermo MD on 025 FINAL Marlene Guzmán * [facility] , [address] [facility] [id number] 0 03/09 M-spi ke, SPE, g/dL g/dL 0.0 0.0 0.3 High FINAL Marlene Guzmán * [facility] , [address] [facility] [id number] 0 03/09 M-spi ke 2, SPE g/dL 0.0 0.0 0.4 High FINAL Marlene Guzmán * [facility] , [address] [facility] [id number] 0 03/09 Immun oglob ulin measu remen t IgG, quant mg/dL 610.0 1616.0 1080.49 Test performed at [facility] on a Binding Site Optilite Analyzer that uses a turbidime tric method for analysis. Patient testing should not be performed using multiple methodolo gies due to analytica l variation seen between test methodolo gies. FINAL Marlene Guzmán * [facility] , [address] [facility] [id number] 0 03/09 Immun oglob ulin measu remen t IgA, quant mg/dL 61.0 348.0 577.26 High Test performed at [facility] on a Binding Site Optilite Analyzer that uses a turbidime tric method for analysis. Patient testing should not be performed using multiple methodolo gies due to analytica l variation seen between test methodolo gies. FINAL Marlene Guzmán * [facility] , [address] [facility] [id number] 0 03/09 Immun oglob ulin measu remen t IgM, quant mg/dL 35.0 242.0 91.00 Test performed at [facility] on a Binding Site Optilite Analyzer that uses a turbidime tric method for analysis. Patient testing should not be performed using multiple methodolo gies due to analytica l variation seen between test methodolo josefina. FINAL Marlene Guzmán * [facility] , [address] [facility] [id number] 0 04/03 [facility] other lab See attache malave Medications Date [...] BMI 47.71 08/03/2023 Oxygen Saturation 98.00 10/11/2023 Intravascular Systolic 128 10/11/2023 Intravascular Diastolic 80 10/11/2023 BSA 2.36 10/11/2023 BMI 47.71 10/11/2023 Height 66.00 10/11/2023 Weight 295.60 10/11/2023 Pain Scale 0.00 10/11/2023 Oxygen Saturation 97.00 10/11/2023 Respiratory Rate 16.00 10/11/2023 Heart Beat 78.00 10/11/2023 Body Temperature 98.10 11/23/2023 Weight 299.60 11/23/2023 Oxygen Saturation 97.00 11/23/2023 Respiratory Rate 16.00 11/23/2023 Heart Beat 83.00 11/23/2023 Body Temperature 98.20 11/23/2023 BMI 48.36 11/23/2023 BSA 2.37 11/23/2023 Intravascular Systolic 130 11/23/2023 Intravascular Diastolic 70 11/23/2023 Pain Scale 0.00 11/23/2023 Height 66.00 04/25/2024 Oxygen Saturation 96.00 04/25/2024 Respiratory Rate 16.00 04/25/2024 Heart Beat 76.00 04/25/2024 Body Temperature 96.90 04/25/2024 Intravascular Systolic 148 04/25/2024 Intravascular Diastolic 92 04/25/2024 BSA 2.42 04/25/2024 BMI 50.60 04/25/2024 Height 66.00 04/25/2024 Weight 313.50 04/25/2024 Pain Scale 0.00 04/10/2025 Height 66.00 04/10/2025 Weight 329.80 04/10/2025 Pain Scale 7.00 04/10/2025 Intravascular Systolic 132 04/10/2025 Intravascular Diastolic 70 04/10/2025 BMI 53.23 04/10/2025 Heart Beat 78.00 04/10/2025 Respiratory Rate 18.00 04/10/2025 Oxygen Saturation 97.00 04/10/2025 BSA 2.47 04/10/2025 Body Temperature 97.50 Notes Section * ANTHROPOLOGY PROFESSOR Onc Consult Note (Amended) GYNECOLOGIC ONCOLOGY CONSULT Patient Name: VERO HENRY Patient : 1960 Patient Referring Physician: Malissa Hernandez MD (DAY WORKER) Primary GYNOncologist: Marlene Guzmán (Hematology/Oncology) Date of Service: 08/03/2023 Reason for Consult: I was asked by Dr. Malissa Hernandez to see Vero Henry in regard to a recent diagnosis of EIN/CAH. History of Present Illness ([facility]): 63 y.o.?? * Presented with c/o [...] with myosure * Pathology:?? EIN Genetic Testing ([facility]): Review of Systems: See intake ROS [...] Hysteroscopy with myosure, D & C 06/28/23 complaint analyst History: - 3 , 1 SAb Allergies: [...] Fluocinonide Topical Cream 0.05 % PRN * [place] (Hydrocodone-Acetaminophen Oral 5 mg-325 mg) 5-325 mg [...] BSA: 2.36, BMI: 47.71 kg/m2 Physical Exam ([facility]): General:?? Anxious, , female with somewhat [...] record:05/23/2019 Last record:05/23/2019; ) Assessment & Plan ([facility]): 63?? y.o. with abnormal uterine bleeding/PMB [...] signed by Abbie Gallo MD 08/03/2023 12:46 TREASURY SPECIALIST
--- OUTSIDE RECORDS SUMMARY | 2025-07-06 23:11 | XMS_ITS ---
Author Name Interface, L2Diferbr lity Address [address] [facility] [address] [place] [address] [facility] Address [address] [facility] [address] [place] [address] Support Name Relationship Address Phone Greg Ch [...] FINAL [facility] [place], [address] [place] [address] 210 [facility] [phone] Phone: () - 11/22 Appea ying (ua) Clear FINAL [facility] [place], [address] [place] [address] 210 [facility] [phone] Phone: () - 11/22 Gluco se (ua), qual 500.0% Abnor mal FINAL [facility] [place], [address] [facility] 210 [facility] [phone] 0 Phone: () - 11/22 Bilir ubin (ua) Negativ e FINAL [facility] [place], [address] [place] [address] 210 [facility] [phone] Phone: () - 11/22 Urina lysis , aceto ne or keton e chapo s measu remen t Negativ e FINAL [facility] [place], [address] [facility] 210 [place] [phone] 0 Phone: () - 11/22 Speci fic gravi ty (ua) 1.005 1.02 1.025% Abnor mal FINAL [facility] [place], [address] [facility] 210 [place] [phone] 0 Phone: () - 11/22 Blood (ua) Negativ e FINAL [facility] [place], [address] [place] [address] 210 [place] [phone] Phone: () - 11/22 pH (ua) 5.0 8.0 6.0% FINAL [facility] [place], [address] [place] [address] 210 [facility] [phone] Phone: () - 11/22 Prote in (ua) Negativ e FINAL [facility] [place], [address] [place] [address] 210 [place] [phone] 0 Phone: () - 11/22 Urobi linog en (ua) 0.2 1.0 0.2% FINAL [facility] [place], [address] [place] [address] 210 [place] [phone] Phone: () - 11/22 Nitri te (ua) Negativ e FINAL [facility] [place], [address] [place] [address] 210 [place] [phone] 0 Phone: () - 11/22 Leuko cyte jerson ase (ua), qual Negativ e FINAL [facility]sa [facility] [place], [address] [place] [address] 210 [place] [phone] Phone: () - 11/22 UA comme nt 1 Dipstic k negativ e- Culture ordered per provide r FINAL [facility]sa [facility] [place], [address] [place] [address] 210 [place] [phone] 0 Phone: () - 11/22 Urine cultu re panel CULTU RE, URINE , ROUTI NE SEE NOTE Abnor mal CULTURE, URINE, ROUTINEMi scroll assembler Number: [id number] est Status: FinalSpec imen Source: UrineSpec imen [...] FINAL Hafsa Bud [facility], [facility] [address] [facility] [id number] 4 12/18 [facility] other lab See chronic condition nurse d 04/18 Total prote in g/dL 6.3 8.2 6.9 FINAL Marlene Guzmán * [facility], [address] [facility] [address] [place] [address] [id number] 04/18 Album in, SPE g/dL 3.31 5.31 3.97 FINAL Marlene Guzmán * [facility], [facility] [address] [place] [address] [id number] 04/18 Alpha -1 globu tony g/dL 0.19 0.42 0.26 FINAL Marlene Guzmán * [facility], [facility] [address] [place] [address] [id number] 04/18 Alpha -2 globu tony g/dL 0.44 1.03 0.63 FINAL Marlene Guzmán * [facility] [address] [place] [address] [id number] 04/18 Beta globu tony g/dL 0.52 1.05 0.95 FINAL Marlene Guzmán * [facility], [address] [facility] [address] [place] [address] [id number] 0 04/18 Gamma globu tony g/dL 0.59 1.46 1.10 FINAL Marlene Guzmán * [facility], [address] [facility] [address] [place] [address] [id number] 04/18 Elect Gemma layton in Lab resul t note Previou sly identif ied parapro teins detecte d in gamma region. Were 0.3 and 0.4 gm/dL, now 0.3 and 0.3 gm/dL. Interpr eted and signed by Adrienne Swanson MD on 024 FINAL Marlene Guzmán * [facility], [facility] [address] [place] [address] [id number] 0 04/18 M-spi ke, SPE, g/dL g/dL 0.0 0.0 0.3 High FINAL Marleneanabel Guzmán * [facility], [address] [facility] [id number] 0 04/18 M-spi ke 2, SPE g/dL 0.0 0.0 0.3 High FINAL Marlene Guzmán * [facility], [address] [facility] [address] [facility] [id number] 0 04/18 Immun oglob ulin measu remen t IgG, quant mg/dL 610.0 1616.0 946.67 Test performed at [facility] on a Binding Site Optilite Analyzer that uses a turbidime tric method for analysis. Patient testing should not be performed using multiple methodolo gies due to analytica l variation seen between test methodolo gies. FINAL Marlene Guzmán * [facility], [address] [id number] 0 04/18 Immun oglob ulin measu remen t IgA, quant mg/dL 61.0 348.0 493.08 High Test performed at [facility] on a Binding Site Optilite Analyzer that uses a turbidime tric method for analysis. Patient testing should not be performed using multiple methodolo gies due to analytica l variation seen between test methodolo gies. FINAL Marlene Guzmán * [facility], [address] [id number] 0 04/18 Immun oglob ulin measu remen t IgM, quant mg/dL 35.0 242.0 75.62 Test performed at [facility] on a Binding Site Optilite Analyzer that uses a turbidime tric method for analysis. Patient testing should not be performed using multiple methodolo gies due to analytica l variation seen between test methodolo gies. FINAL Marlene Guzmán * [facility], [address] [id number] 0 04/18 Free kappa / lambd a with K/L ratio , serum [place] light chain , free, serum , mg/dL mg/dL 0.33 1.94 3.62 High Test performed at [facility] on a Binding Site Optilite Analyzer that uses a turbidime tric method for analysis. Patient testing should not be performed using multiple methodolo gies due to analytica l variation seen between test methodolo gies. FINAL Marlene Stroud [facility]annot [facility], [address] [id number] 0 04/18 Free kappa / lambd a with K/L ratio , serum Lambd a light chain , free, serum , mg/dL mg/dL 0.57 2.63 3.13 High Test performed at [facility] on a Binding Site Optilite Analyzer that uses a turbidime tric method for analysis. Patient testing should not be performed using multiple methodolo gies due to analytica l variation seen between test methodolo gies. FINAL Marlene [facility] a [facility], [address] [facility] [address] [id number] 0 04/18 Free kappa / lambd a with K/L ratio , serum K/L light chain ratio , free, serum 0.26 1.65 1.16% FINAL Marlene [facility] a [facility], [address] [facility] [address] [id number] 0 04/18 CBC w/ auto diff WBC K/uL 3.0 8.9 7.0 FINAL Marlene [facility] - [place], [address] [facility] [address] [facility] [id number] 0 Phone: () - 04/18 CBC w/ auto diff HGB g/dL 11.3 15.2 14.0 FINAL Marlene [facility] - [place], [address] [place] [id number] 0 Phone: () - 04/18 CBC w/ auto diff PLT K/uL 113.0 364.0 164 FINAL Marlene [facility] - [place], [address] [place] [id number] 0 Phone: () - 04/18 CBC w/ auto diff Tammy # (ANC) K/uL 1.6 6.6 4.5 FINAL Marlene [facility] [place], [address] [place] [id number] 0 Phone: () - 04/18 CBC w/ auto diff Tammy % % 43.0 74.0 64.0 FINAL Marlene Ramirez [facility] [place], [address] [place] [id number] 0 Phone: () - 04/18 CBC w/ auto diff IG % % 0.0 0.5 0.3 FINAL Marlene Ramirez [facility] [place], [address] [place] [id number] 0 Phone: () - 04/18 CBC w/ auto diff IG # K/uL 0.0 0.03 0.02 FINAL Marlene Ramirez [facility] [place], [address] [place] [id number] 0 Phone: () - 04/18 CBC w/ auto diff LY % % 14.0 41.0 28.2 FINAL Marlene Guzmán [facility] [place], [address] [place] [id number] 0 Phone: () - 04/18 CBC w/ auto diff MO % % 6.0 15.0 6.0 FINAL Marlene Guzmán [facility] [place], [address] [place] [id number] 0 Phone: () - 04/18 CBC w/ auto diff EO % % 0.0 7.0 1.1 FINAL Marlene Ramirez [facility] [place], [address] [place] [id number] 0 Phone: () - 04/18 CBC w/ auto diff BA % % 0.0 2.0 0.4 FINAL Marlene [facility] [place], [address] [place] [id number] 0 Phone: () - 04/18 CBC w/ auto diff LY # K/uL 0.4 3.6 2.0 FINAL Marlene [facility] - [place], [address] [place] [id number] 0 Phone: () - 04/18 CBC w/ auto diff MO # K/uL 0.2 1.3 0.4 FINAL Marlene [facility] - [place], [address] [place] [id number] 0 Phone: () - 04/18 CBC w/ auto diff EO # K/uL 0.0 0.6 0.1 FINAL Marlene [facility] - [place], [address] [place] [id number] 0 Phone: () - 04/18 CBC w/ auto diff BA # K/uL 0.0 0.2 0.0 FINAL Marlene [facility] - [place], [address] [place] [id number] 0 Phone: () - 04/18 CBC w/ auto diff NRBC % #/100W BC 0.0 0.2 0.0 FINAL Marlene [facility] - [place], [address] [place] [id number] 0 Phone: () - 04/18 CBC w/ auto diff RBC M/uL 3.9 5.1 4.84 FINAL Marlene [facility] [place], [address] [place] [id number] 0 Phone: () - 04/18 CBC w/ auto diff HCT % 35.0 48.0 40.4 FINAL Marlene Guzmán [facility] [place], [address] [place] [id number] 0 Phone: () - 04/18 CBC w/ auto diff MCV fL 80.0 104.0 83.5 FINAL Marlene Guzmán [facility] [place], [address] [place] [id number] 0 Phone: () - 04/18 CBC w/ auto diff MCH pg 26.0 35.0 28.9 FINAL Marlene Guzmán [facility] [place], [address] [place] [id number] 0 Phone: () - 04/18 CBC w/ auto diff MCHC g/dL 30.0 35.0 34.7 FINAL Marlene Guzmán [facility] [place], [address] [place] [id number] 0 Phone: () - 04/18 CBC w/ auto diff MPV fL 9.5 13.4 9.7 FINAL Marlene Guzmán [facility] [place], [address] [place] [id number] 0 Phone: () - 04/18 CBC w/ auto diff RDW % 11.4 16.1 13.80 FINAL Marlene Guzmán [facility] [place], [address] [place] [id number] 0 Phone: () - 04/18 CMP Album in g/dL 3.5 5.0 4.0 FINAL Marlene Guzmán * [facility] [place], [address] [place] [id number] 0 04/18 CMP Alkal ine phosp hatas e U/L 36.0 125.0 105 FINAL Marlene Guzmán * [facility] [place], [address] [place] [id number] 0 04/18 CMP ALT/S GPT U/L 0.0 34.0 35 High FINAL Marlene Guzmán * [facility], [address] [facility] [address] [id number] 0 04/18 CMP AST/S GOT U/L 14.0 36.0 44 High FINAL Marlene Guzmán * [facility], [address] [facility] [address] [id number] 0 04/18 CMP BUN mg/dL 7.0 17.0 21.0 High FINAL Marlene Guzmán * [facility], [address] [facility] [address] [id number] 0 04/18 CMP Calci um mg/dL 8.4 10.2 8.8 FINAL Marlene Guzmán * [facility], [address] [facility] [address] [id number] 0 04/18 CMP Chlor nilson mmol/L 96.0 107.0 106 FINAL Marlene Guzmán * [facility], [address] [facility] [address] [id number] 0 04/18 CMP CO2 mmol/L 22.0 30.0 [...] hour stability window. FINAL Marlene Guzmán * [facility], [address] [facility] [id number] 0 04/18 CMP Creat inine mg/dL 0.66 1.25 0.70 FINAL Marlene Guzmán * [facility], [address] [facility] [id number] 0 04/18 CMP GFR estim ate ml/min /1.73m ^2 97.7 GFR is calculate d using the CKD-EPI equation. FINAL Marlene Guzmán * [facility], [address] [facility] [id number] 0 04/18 CMP Gluco se mg/dL 74.0 100.0 267 High FINAL Marlene Guzmán * [facility], [address] [facility] [id number] 0 04/18 CMP Potas sium mmol/L 3.5 5.1 4.0 FINAL Marlene Guzmán * [facility], [address] [facility] [id number] 0 04/18 CMP Sodiu m mmol/L 137.0 145.0 136 Low FINAL Marlene Guzmán * [facility], [address] [facility] [id number] 0 04/18 CMP Bilir ubin, total mg/dL 0.2 1.3 1.0 FINAL Marlene Guzmán * [facility], [address] [facility] [id number] 0 04/18 CMP Total prote in g/dL 6.3 8.2 7.3 FINAL Marlene Guzmán * [facility], [address] [facility] [id number] 0 04/18 [facility] other lab See chronic condition nurse d 12/20 [facility] other lab See chronic condition nurse d 12/20 Misc other lab See chronic condition nurse d 03/09 Free kappa / lambd a with K/L ratio , serum [place] light chain , free, serum , mg/dL mg/dL 0.33 1.94 4.35 High Test performed at [facility] on a Binding Site Optilite Analyzer that uses a turbidime tric method for analysis. Patient testing should not be performed using multiple methodolo gies due to analytica l variation seen between test methodolo gies. FINAL Marlene Guzmán * [facility] , [address] [facility] [id number] 0 03/09 Free kappa / lambd a with K/L ratio , serum Lambd a light chain , free, serum , mg/dL mg/dL 0.57 2.63 3.83 High Test performed at [facility] on a Binding Site Optilite Analyzer that uses a turbidime tric method for analysis. Patient testing should not be performed using multiple methodolo gies due to analytica l variation seen between test methodolo gies. FINAL Marlene Guzmán * [facility] , [address] [facility] [address] [id number] 0 03/09 Free kappa / lambd a with K/L ratio , serum K/L light chain ratio , free, serum 0.26 1.65 1.14% FINAL Marlene Guzmán * [facility] , [address] [facility] [address] [id number] 0 03/09 CMP Album in g/dL 3.5 5.0 3.8 FINAL Marlene Guzmán * [facility] , [address] [facility] [id number] 0 03/09 CMP Alkal ine phosp hatas e U/L 36.0 125.0 106 FINAL Marlene Guzmán * [facility] , [address] [facility] [id number] 0 03/09 CMP ALT/S GPT U/L 0.0 34.0 37 High FINAL Marlene Guzmán * [facility] , [address] [facility] [address] [id number] 0 03/09 CMP AST/S GOT U/L 14.0 36.0 36 FINAL Marlene Ramirez * [facility] , [address] [facility] [address] [facility] [id number] 0 03/09 CMP BUN mg/dL 7.0 17.0 18.0 High FINAL Marlene Guzmán * [facility] , [address] [facility] [address] [facility] [id number] 0 03/09 CMP Calci um mg/dL 8.4 10.2 8.9 FINAL Marlene Guzmán * [facility] , [address] [facility] [address] [facility] [id number] 0 03/09 CMP Chlor nilson mmol/L 96.0 107.0 99 FINAL Marlene Guzmán * [facility] , [address] [facility] [address] [facility] [id number] 0 03/09 CMP CO2 mmol/L 22.0 30.0 [...] hour stability window. FINAL Marlene Guzmán * [facility] , [address] [facility] [address] [facility] [id number] 0 03/09 CMP Creat inine mg/dL 0.66 1.25 0.70 FINAL Marlene Guzmán * [facility] , [address] [facility] [address] [facility] [id number] 0 03/09 CMP GFR estim ate ml/min /1.73m ^2 97.1 GFR is calculate d using the CKD-EPI equation. FINAL Marlene Guzmán * [facility] , [address] [facility] [address] [id number] 0 03/09 CMP Gluco se mg/dL 74.0 100.0 363 Criti sami High FINAL Marlene Guzmán * [facility] , [address] [facility] [facility] [id number] 0 03/09 CMP Potas sium mmol/L 3.5 5.1 3.9 FINAL Marlene Guzmán * [facility] , [address] [facility] [facility] [id number] 0 03/09 CMP Sodiu m mmol/L 137.0 145.0 134 Low FINAL Marlene Guzmán * [facility] , [address] [facility] [id number] 0 03/09 CMP Bilir ubin, total mg/dL 0.2 1.3 1.1 FINAL Marlene Guzmán * [facility] , [address] [facility] [id number] 0 03/09 CMP Total prote in g/dL 6.3 8.2 7.3 FINAL Marlene Guzmán * [facility] , [address] [facility] [facility] [id number] 0 03/09 CBC w/ auto diff WBC K/uL 3.0 8.9 7.1 FINAL Marlene Guzmán [place] [facility] [place] [facility] , [address] [place] [id number] 0 03/09 CBC w/ auto diff HGB g/dL 11.3 15.2 14.4 FINAL Marlene Guzmán [place] [facility] [place] [facility] , [address] [place] [id number] 0 03/09 CBC w/ auto diff PLT K/uL 113.0 364.0 179 FINAL Marlene Guzmán [place] [facility] [place] [facility] , [address] [place] [id number] 0 03/09 CBC w/ auto diff Tammy # (ANC) K/uL 1.6 6.6 4.7 FINAL Marlene Guzmán [place] [facility] [place] [facility] , [address] [place] [id number] 0 03/09 CBC w/ auto diff Tammy % % 43.0 74.0 65.7 FINAL Marlene Guzmán [place] [facility] [place] [facility] , [address] [place] [id number] 0 03/09 CBC w/ auto diff IG % % 0.0 0.5 0.6 High FINAL Marlene Guzmán [place] [facility] [place] [facility] , [address] [place] [id number] 0 03/09 CBC w/ auto diff IG # K/uL 0.0 0.03 0.04 High FINAL Marlene Guzmán [place] [facility] [place] [facility] , [address] [place] [id number] 0 03/09 CBC w/ auto diff LY % % 14.0 41.0 25.8 FINAL Marlene Guzmán [place] [facility] [place] [facility] , [address] [place] [id number] 0 03/09 CBC w/ auto diff MO % % 6.0 15.0 6.2 FINAL Marlene Guzmán [place] [facility] [place] [facility] , [address] [place] [id number] 0 03/09 CBC w/ auto diff EO % % 0.0 7.0 1.1 FINAL Marlene Guzmán [place] [facility] [place] [facility] , [address] [place] [id number] 0 03/09 CBC w/ auto diff BA % % 0.0 2.0 0.6 FINAL Marlene Guzmán [place] [facility] [place] [facility] , [address] [place] [id number] 0 03/09 CBC w/ auto diff LY # K/uL 0.4 3.6 1.8 FINAL Marlene Guzmán [place] [facility] [place] [facility] , [address] [place] [id number] 0 03/09 CBC w/ auto diff MO # K/uL 0.2 1.3 0.4 FINAL Marlene Guzmán [place] [facility] [place] [facility] , [address] [place] [id number] 0 03/09 CBC w/ auto diff EO # K/uL 0.0 0.6 0.1 FINAL Marlene Guzmán [place] [facility] [place] [facility] , [address] [place] [id number] 0 03/09 CBC w/ auto diff BA # K/uL 0.0 0.2 0.0 FINAL Marlene Guzmán [place] [facility] [place] [facility] , [address] [place] [id number] 0 03/09 CBC w/ auto diff NRBC % #/100W BC 0.0 0.2 0.0 FINAL Marlene Guzmán [place] [facility] [place] [facility] , [address] [place] [id number] 0 03/09 CBC w/ auto diff RBC M/uL 3.9 5.1 5.08 FINAL Marlene Guzmán [place] [facility] [place] [facility] , [address] [place] [id number] 0 03/09 CBC w/ auto diff HCT % 35.0 48.0 42.9 FINAL Marlene Guzmán [facility] , [address] [place] [facility] [id number] 0 03/09 CBC w/ auto diff MCV fL 80.0 104.0 84.4 FINAL Marlene Guzmán [facility] , [address] [address] [place] [facility] [id number] 0 03/09 CBC w/ auto diff MCH pg 26.0 35.0 28.3 FINAL Marlene Guzmán [facility] , [address] [facility] [address] [facility] [id number] 0 03/09 CBC w/ auto diff MCHC g/dL 30.0 35.0 33.6 FINAL Marlene Guzmán [facility] , [address] [facility] [address] [facility] [id number] 0 03/09 CBC w/ auto diff MPV fL 9.5 13.4 9.6 FINAL Marlene Guzmán [facility] , [address] [facility] [address] [facility] [id number] 0 03/09 CBC w/ auto diff RDW % 11.4 16.1 14.20 FINAL Marlene Guzmán [facility] , [address] [facility] [address] [facility] [id number] 0 03/09 Immun oglob ulin measu remen t IgG, quant mg/dL 610.0 1616.0 1080.49 Test performed at [facility] on a Binding Site Optilite Analyzer that uses a turbidime tric method for analysis. Patient testing should not be performed using multiple methodreal rocha due to analytica l variation seen between test methodreal rocha. FINAL Marlene Guzmán * [facility] , [address] [facility] [id number] 0 03/09 Immun oglob ulin measu remen t IgA, quant mg/dL 61.0 348.0 577.26 High Test performed at [facility] on a Binding Site Optilite Analyzer that uses a turbidime tric method for analysis. Patient testing should not be performed using multiple methodolo gies due to analytica l variation seen between test methodolo gies. FINAL Marlene Guzmán * [facility] , [facility] [address] [id number] 0 03/09 Immun oglob ulin measu remen t IgM, quant mg/dL 35.0 242.0 91.00 Test performed at [facility] on a Binding Site Optilite Analyzer that uses a turbidime tric method for analysis. Patient testing should not be performed using multiple methodolo gies due to analytica l variation seen between test methodolo gies. FINAL Marlene Guzmán * [facility] , [facility] [address] [id number] 0 03/09 Total prote in g/dL 6.3 8.2 7.1 FINAL Marlene Guzmán * [facility] , [facility] [address] [place] [address] [id number] 0 03/09 Album in, SPE g/dL 3.31 5.31 4.70 FINAL Marlene Guzmán * [facility] , [facility] [address] [id number] 0 03/09 Alpha -1 globu tony g/dL 0.19 0.42 0.23 FINAL Marlene Guzmán * [facility] , [facility] [address] [id number] 0 03/09 Alpha -2 globu tony g/dL 0.44 1.03 0.52 FINAL Marlene Guzmán * [facility] , [facility] [address] [id number] 0 03/09 Beta globu tony g/dL 0.52 1.05 0.80 FINAL Marlene Guzmán * [facility] , [address] [facility] [address] [id number] 0 03/09 Gamma globu tony g/dL 0.59 1.46 0.85 FINAL Marlene Guzmán * [facility] , [address] [facility] [address] [id number] 0 03/09 Elect Gemma layton in Lab resul t note Previou sly identif ied parapro teins detecte d in gamma region. Is now 0.3 and 0.4 gm/dL. Interpr eted and signed by Luis Guillermo MD on 025 FINAL Marlene Guzmán * [facility] , [facility] [address] [id number] 0 03/09 M-spi ke, SPE, g/dL g/dL 0.0 0.0 0.3 High FINAL Marlene Guzmán * [facility] , [address] [facility] [address] [id number] 0 03/09 M-spi ke 2, SPE g/dL 0.0 0.0 0.4 High FINAL Marlene Guzmán * [facility] , [address] [facility] [address] [id number] 0 04/03 Misc other lab See chronic condition nurse d Medications Date Name Route Dose Frequency [...] 70 04/10/2025 BMI 53.23 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 History of Present Illness (Screening Technician Oncology): 63 y.o.?? 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 Anxious, , female tearful??throughout visit. [...] record:05/23/2019 Last record:05/23/2019; ) Assessment & Plan (Screening Technician Oncology): 63?? y.o. with abnormal uterine bleeding/PMB [...]
--- OUTSIDE RECORDS SUMMARY | 2025-07-06 23:13 | XMS_ITS ---
Author Name Interface, [id number] lity Address [address] [facility] [address] [place] [address] [facility] Address [address] [facility] [address] [place] [address] Support Name Relationship Address Phone Greg Henry [...] Ordered By Specimen Source Lab Address 11/05 [facility] other lab See director of materials management d 11/08 Mis other lab See director of materials management d 11/22 Color (ua) Yellow FINAL [facility] [place], [address] [facility] [address] [place] [id number] 0 Phone: () - 11/22 Appea ying (ua) Clear FINAL [facility] [place], [address] [facility] [address] [place] [phone] 0 Phone: () - 11/22 Gluco se (ua), qual 500.0% Abnor mal FINAL [facility] [place], [address] [facility] [address] [place] [phone] 0 Phone: () - 11/22 Bilir ubin (ua) Negativ e FINAL [facility] [place], [address] [facility] [address] [place] [phone] 0 Phone: () - 11/22 Urina lysis , aceto ne or keton e chapo s measu remen t Negativ e FINAL [facility] [place], [address] [facility] [address] [place] [phone] 0 Phone: () - 11/22 Speci fic gravi ty (ua) 1.005 1.02 1.025% Abnor mal FINAL [facility] [place], [address] [facility] [address] [place] [phone] 0 Phone: () - 11/22 Blood (ua) Negativ e FINAL [facility] [place], [address] [facility] [address] [place] [phone] 0 Phone: () - 11/22 pH (ua) 5.0 8.0 6.0% FINAL [facility] [place], [address] [facility] [address] [place] [phone] 0 Phone: () - 11/22 Prote in (ua) Negativ e FINAL [facility] [place], [address] [place] [address] [address] [place] [phone] 0 Phone: () - 11/22 Urobi linog en (ua) 0.2 1.0 0.2% FINAL [facility] [place], [address] [place] [address] [address] [place] [phone] 0 Phone: () - 11/22 Nitri te (ua) Negativ e FINAL [facility] [place], [address] [facility] [address] [place] [phone] 0 Phone: () - 11/22 Leuko cyte jerson ase (ua), qual Negativ e FINAL [facility] [place], [address] [facility] [address] [place] [phone] 0 Phone: () - 11/22 UA comme nt 1 Dipstic k negativ e- Culture ordered per provide r FINAL [facility] [place], [address] [facility] [address] [facility] [phone] Phone: () - 11/22 Urine cultu re panel CULTU RE, URINE , ROUTI NE SEE NOTE Abnor mal CULTURE, URINE, ROUTINEMi crossbar frame wirer Number: [id number] est Status: FinalSpec imen Source: UrineSpec imen [...] susceptib le versus intermedi atefor isolates with IDCKSON < or = 4 mcg/mL requiresa dditional testing.) Note 2:For uncomplic ated UTI caused by E. coli,K. pneumonia e or P. mirabilis : Cefazolin issuscept ible if DICKSON <32 mcg/mL and predictss usceptibl e to the oral agents cefaclor, cefdinir, cefpodoxi me, cefprozil , cefuroxim e, cephalexi nand loracarbe f. FINAL Hafsa Farrell [facility] [address] [facility] [id number] 4 12/18 [facility] other lab See director of materials management d 04/18 Total prote in g/dL 6.3 8.2 6.9 FINAL Marlene Ramirze * [facility], [address] [id number] 0 04/18 Album in, SPE g/dL 3.31 5.31 3.97 FINAL Marlene Guzmán * [facility], [address] [id number] 0 04/18 Alpha -1 globu tony g/dL 0.19 0.42 0.26 FINAL Marlene Guzmán * [facility], [address] [id number] 0 04/18 Alpha -2 globu tony g/dL 0.44 1.03 0.63 FINAL Marlene Guzmán * [facility], [address] [id number] 0 04/18 Beta globu tony g/dL 0.52 1.05 0.95 FINAL Marlene Ramirez * [facility], [address] [id number] 0 04/18 Gamma globu tony g/dL 0.59 1.46 1.10 FINAL Marlene Guzmán * [facility], [address] [id number] 0 04/18 Gemma Rodriguez in Lab resul t note Previou sly identif ied parapro teins detecte d in gamma region. Were 0.3 and 0.4 gm/dL, now 0.3 and 0.3 gm/dL. Interpr eted and signed by Adrienne Swanson MD on 024 FINAL Marlene Guzmán * [facility], [address] [facility] [address] [id number] 0 04/18 M-spi ke, SPE, g/dL g/dL 0.0 0.0 0.3 High FINAL Marlene Guzmán * [facility], [address] [facility] [address] [id number] 0 04/18 M-spi ke 2, SPE g/dL 0.0 0.0 0.3 High FINAL Marleneanabel Guzmán * [facility], [facility] [address] [place] [address] [id number] 0 04/18 Immun oglob ulin measu remen t IgG, quant mg/dL 610.0 1616.0 946.67 Test performed at [facility] on a Binding Z[employer]pi Optilite Analyzer that uses a turbidime tric method for analysis. Patient testing should not be performed using multiple methodolo gies due to analytica l variation seen between test methodolo gies. FINAL Marleneanabel Guzmán * [facility] [address] [place] [address] [id number] 0 04/18 Immun oglob ulin measu remen t IgA, quant mg/dL 61.0 348.0 493.08 High Test performed at [facility] on a Binding [employer]pi Optilite Analyzer that uses a turbidime tric method for analysis. Patient testing should not be performed using multiple methodolo gies due to analytica l variation seen between test methodolo gies. FINAL Marlene Guzmán * [facility], [address] [place] [address] [address] [place] [address] [id number] 0 04/18 Immun oglob ulin measu remen t IgM, quant mg/dL 35.0 242.0 75.62 Test performed at [facility] on a Binding Site Optilite Analyzer that uses a turbidime tric method for analysis. Patient testing should not be performed using multiple methodolo gies due to analytica l variation seen between test methodolo gies. FINAL Marlene Forte a [employer], [facility]0 [facility] [address] [id number] 0 04/18 Free kappa / lambd a with K/L ratio , serum [place] light chain , free, serum , mg/dL mg/dL 0.33 1.94 3.62 High Test performed at [facility] on a Binding Site Optilite Analyzer that uses a turbidime tric method for analysis. Patient testing should not be performed using multiple methodolo gies due to analytica l variation seen between test methodolo gies. FINAL Marlene Rubi a [employer], [address] [facility] [address] [id number] 0 04/18 Free kappa / lambd a with K/L ratio , serum Lambd a light chain , free, serum , mg/dL mg/dL 0.57 2.63 3.13 High Test performed at [facility] on a Binding Z[employer]pi Optilite Analyzer that uses a turbidime tric method for analysis. Patient testing should not be performed using multiple methodolo gies due to analytica l variation seen between test methodolo gies. FINAL Marlene Rubi a [employer], [address] [id number] 0 04/18 Free kappa / lambd a with K/L ratio , serum K/L light chain ratio , free, serum 0.26 1.65 1.16% FINAL Marlene [facility] a [employer], [address] [id number] 0 04/18 CBC w/ auto diff WBC K/uL 3.0 8.9 7.0 FINAL Marlene Rubi [facility], [address] [facility] [id number] 0 Phone: () - 04/18 CBC w/ auto diff HGB g/dL 11.3 15.2 14.0 FINAL [facility]lene [facility] [place], [address] [place] [id number] 0 Phone: () - 04/18 CBC w/ auto diff PLT K/uL 113.0 364.0 164 FINAL Marlene [facility] [place], [address] [place] [id number] 0 Phone: () - 04/18 CBC w/ auto diff Tammy # (ANC) K/uL 1.6 6.6 4.5 FINAL Marlene [facility] - [place], [address] [place] [id number] 0 Phone: () - 04/18 CBC w/ auto diff Tammy % % 43.0 74.0 64.0 FINAL Marlene [facility] - [place], [address] [place] [id number] 0 Phone: () - 04/18 CBC w/ auto diff IG % % 0.0 0.5 0.3 FINAL Marlene [facility] - [place], [address] [place] [id number] 0 Phone: () - 04/18 CBC w/ auto diff IG # K/uL 0.0 0.03 0.02 FINAL Marlene [facility] - [place], [address] [place] [id number] 0 Phone: () - 04/18 CBC w/ auto diff LY % % 14.0 41.0 28.2 FINAL Marlene Rubi a [facility] - [place], [address] [place] [id number] 0 Phone: () - 04/18 CBC w/ auto diff MO % % 6.0 15.0 6.0 FINAL Marlene Guzmán [facility] - [place], [address] [place] [id number] 0 Phone: () - 04/18 CBC w/ auto diff EO % % 0.0 7.0 1.1 FINAL Marlene [facility] - [place], [address] [place] [id number] 0 Phone: () - 04/18 CBC w/ auto diff BA % % 0.0 2.0 0.4 FINAL Marlene [facility] - [place], [address] [place] [id number] 0 Phone: () - 04/18 CBC w/ auto diff LY # K/uL 0.4 3.6 2.0 FINAL Marlene Guzmán [facility] [place], [address] [place] [id number] 0 Phone: () - 04/18 CBC w/ auto diff MO # K/uL 0.2 1.3 0.4 FINAL Marlene Ramirez [facility] [place], [address] [place] [id number] 0 Phone: () - 04/18 CBC w/ auto diff EO # K/uL 0.0 0.6 0.1 FINAL Marlene Ramirez [facility] [place], [address] [place] [id number] 0 Phone: () - 04/18 CBC w/ auto diff BA # K/uL 0.0 0.2 0.0 FINAL Marlene Ramirez [facility] [place], [address] [place] [id number] 0 Phone: () - 04/18 CBC w/ auto diff NRBC % #/100W BC 0.0 0.2 0.0 FINAL Marlene Guzmán [facility] [place], [address] [place] [id number] 0 Phone: () - 04/18 CBC w/ auto diff RBC M/uL 3.9 5.1 4.84 FINAL Marlene Guzmán [facility] - [place], [address] [place] [id number] 0 Phone: () - 04/18 CBC w/ auto diff HCT % 35.0 48.0 40.4 FINAL Marlene Rubi a [facility] - [place], [address] [place] [id number] 0 Phone: () - 04/18 CBC w/ auto diff MCV fL 80.0 104.0 83.5 FINAL Marlene [facility] - [place], [address] [place] [id number] 0 Phone: () - 04/18 CBC w/ auto diff MCH pg 26.0 35.0 28.9 FINAL Marlene Rubi a [facility] - [place], [address] [place] [id number] 0 Phone: () - 04/18 CBC w/ auto diff MCHC g/dL 30.0 35.0 34.7 FINAL Marlene Rubi a [facility] - [place], [address] [place] [id number] 0 Phone: () - 04/18 CBC w/ auto diff MPV fL 9.5 13.4 9.7 FINAL Marlene Rubi a [facility] - [place], [address] [place] [id number] 0 Phone: () - 04/18 CBC w/ auto diff RDW % 11.4 16.1 13.80 FINAL Marlene Rubi a [facility] - [place], [address] [place] [id number] 0 Phone: () - 04/18 CMP Album in g/dL 3.5 5.0 4.0 FINAL Marlene Guzmán * [facility] [place], [address] [place] [id number] 0 04/18 CMP Alkal ine phosp hatas e U/L 36.0 125.0 105 FINAL Marlene Guzmán * [facility] [place], [address] [facility] [id number] 0 04/18 CMP ALT/S GPT U/L 0.0 34.0 35 High FINAL Marlene Guzmán * [facility], [address] [facility] [id number] 0 04/18 CMP AST/S GOT U/L 14.0 36.0 44 High FINAL Marlene Guzmán * [facility], [address] [facility] [id number] 0 04/18 CMP BUN mg/dL 7.0 17.0 21.0 High FINAL Marlene Guzmán * [facility], [address] [facility] [id number] 0 04/18 CMP Calci um mg/dL 8.4 10.2 8.8 FINAL Marlene Guzmán * [facility], [address] [facility] [id number] 0 04/18 CMP Chlor nilson mmol/L 96.0 107.0 106 FINAL Marlene Guzmán * [facility], [address] [facility] [id number] 0 04/18 CMP CO2 mmol/L 22.0 30.0 [...] hour stability window. FINAL Marlene Guzmán * [facility], [address] [facility] [id number] 0 04/18 CMP Creat inine mg/dL 0.66 1.25 0.70 FINAL Marlene Guzmán * [facility], [address] [facility] [address] [id number] 0 04/18 CMP GFR estim ate ml/min /1.73m ^2 97.7 GFR is calculate d using the CKD-EPI equation. FINAL Marlene Stroud [facility], [address] [facility] [address] [id number] 0 04/18 CMP Gluco se mg/dL 74.0 100.0 267 High FINAL Marlene Guzmán * [facility], [facility]0 [facility] [address] [id number] 0 04/18 CMP Potas sium mmol/L 3.5 5.1 4.0 FINAL Marlene Guzmán * [facility], [address] [facility] [address] [id number] 0 04/18 CMP Sodiu m mmol/L 137.0 145.0 136 Low FINAL Marlene Guzmán * [facility], [address] [facility] [address] [id number] 0 04/18 CMP Bilir ubin, total mg/dL 0.2 1.3 1.0 FINAL Marlene Guzmán * [facility], [address] [facility] [address] [id number] 0 04/18 CMP Total prote in g/dL 6.3 8.2 7.3 FINAL Marlene Guzmán * [facility], [address] [facility] [address] [id number] 0 04/18 [facility] other lab See director of materials management d 12/20 Mis other lab See director of materials management d 12/20 [facility] other lab See director of materials management d 03/09 Free kappa / lambd a with K/L ratio , serum Bailey[place] light chain , free, serum , mg/dL mg/dL 0.33 1.94 4.35 High Test performed at [facility] on a Binding Site Optilite Analyzer that uses a turbidime tric method for analysis. Patient testing should not be performed using multiple methodolo gies due to analytica l variation seen between test methodolo gies. FINAL Marlene Guzmán * [facility] , [address] [facility] [facility] [id number] 0 03/09 Free kappa / lambd a with K/L ratio , serum Lambd a light chain , free, serum , mg/dL mg/dL 0.57 2.63 3.83 High Test performed at [facility] on a Binding Site Optilite Analyzer that uses a turbidime tric method for analysis. Patient testing should not be performed using multiple methodolo gies due to analytica l variation seen between test methodolo gies. FINAL Marlene Guzmán * [facility] , [address] [facility] [address] [id number] 0 03/09 Free kappa / lambd a with K/L ratio , serum K/L light chain ratio , free, serum 0.26 1.65 1.14% FINAL Marlene Guzmán * [facility] , [address] [facility] [address] [id number] 0 03/09 CMP Album in g/dL 3.5 5.0 3.8 FINAL Marlene Guzmán * [facility] , [address] [facility] [address] [id number] 0 03/09 CMP Alkal ine phosp hatas e U/L 36.0 125.0 106 FINAL Marlene Guzmán * [facility] , [address] [facility] [facility] [id number] 0 03/09 CMP ALT/S GPT U/L 0.0 34.0 37 High FINAL Marlene Guzmán * [facility] , [address] [facility] [id number] 0 03/09 CMP AST/S GOT U/L 14.0 36.0 36 FINAL Marlene Guzmán * [facility] , [address] [facility] [id number] 0 03/09 CMP BUN mg/dL 7.0 17.0 18.0 High FINAL Marlene Guzmán * [facility] , [address] [facility] [id number] 0 03/09 CMP Calci um mg/dL 8.4 10.2 8.9 FINAL Marlene Guzmán * [facility] , [address] [facility] [id number] 0 03/09 CMP Chlor nilson mmol/L 96.0 107.0 99 FINAL Marlene Guzmán * [facility] , [address] [facility] [id number] 0 03/09 CMP CO2 mmol/L 22.0 30.0 [...] hour stability window. FINAL Marleneanabel Guzmán * [facility] , [address] [facility] [id number] 0 03/09 CMP Creat inine mg/dL 0.66 1.25 0.70 FINAL Marlene Guzmán * [facility] , [address] [facility] [id number] 0 03/09 CMP GFR estim ate ml/min /1.73m ^2 97.1 GFR is calculate d using the CKD-EPI equation. FINAL Marlene Ramirez * [facility] , [address] [facility] [id number] 0 03/09 CMP Gluco se mg/dL 74.0 100.0 363 Criti sami High FINAL Marlene Ramirez * [facility] , [address] [facility] [id number] 0 03/09 CMP Potas sium mmol/L 3.5 5.1 3.9 FINAL Marlene Ramirez * [facility] , [address] [facility] [id number] 0 03/09 CMP Sodiu m mmol/L 137.0 145.0 134 Low FINAL Marlene Ramirez * [facility] , [address] [facility] [id number] 0 03/09 CMP Bilir ubin, total mg/dL 0.2 1.3 1.1 FINAL Marlene Ramirez * [facility] , [address] [facility] [id number] 0 03/09 CMP Total prote in g/dL 6.3 8.2 7.3 FINAL Marlene Guzmán * [facility] , [address] [facility] [id number] 0 03/09 CBC w/ auto diff WBC K/uL 3.0 8.9 7.1 FINAL Marlene Guzmán [place] [facility] [place] [facility] , [address] [place] [id number] 0 03/09 CBC w/ auto diff HGB g/dL 11.3 15.2 14.4 FINAL Marlene Guzmán [place] [facility] [place] [facility] , [address] [place] [id number] 0 03/09 CBC w/ auto diff PLT K/uL 113.0 364.0 179 FINAL Marlene Guzmán [place] [facility] [place] [facility] , [address] [place] [id number] 0 03/09 CBC w/ auto diff Tammy # (ANC) K/uL 1.6 6.6 4.7 FINAL Marlene Guzmán [place] [facility] [place] [facility] , [address] [place] [id number] 0 03/09 CBC w/ auto diff Tammy % % 43.0 74.0 65.7 FINAL Marlene Guzmán [place] [facility] [place] [facility] , [address] [place] [id number] 0 03/09 CBC w/ auto diff IG % % 0.0 0.5 0.6 High FINAL Marlene Guzmán [place] [facility] , [address] [place] [id number] 0 03/09 CBC w/ auto diff IG # K/uL 0.0 0.03 0.04 High FINAL Marlene Guzmán [place] [facility] [place] [facility] , [address] [place] [id number] 0 03/09 CBC w/ auto diff LY % % 14.0 41.0 25.8 FINAL Marlene Guzmán [place] [facility] [place] [facility] , [address] [place] [id number] 0 03/09 CBC w/ auto diff MO % % 6.0 15.0 6.2 FINAL Marlene Guzmán [place] [facility] [place] [facility] , [address] [place] [id number] 0 03/09 CBC w/ auto diff EO % % 0.0 7.0 1.1 FINAL Marlene Guzmán [place] [facility] [place] [facility] , [address] [place] [id number] 0 03/09 CBC w/ auto diff BA % % 0.0 2.0 0.6 FINAL Marlene Guzmán [place] [facility] [place] [facility] , [address] [place] [id number] 0 03/09 CBC w/ auto diff LY # K/uL 0.4 3.6 1.8 FINAL Marlene Guzmán [place] [facility] [place] [facility] , [address] [place] [id number] 0 03/09 CBC w/ auto diff MO # K/uL 0.2 1.3 0.4 FINAL Marlene Guzmán [place] [facility] [place] [facility] , [address] [place] [id number] 0 03/09 CBC w/ auto diff EO # K/uL 0.0 0.6 0.1 FINAL Marlene Guzmán [place] [facility] [place] [facility] , [address] [place] [id number] 0 03/09 CBC w/ auto diff BA # K/uL 0.0 0.2 0.0 FINAL Marlene Guzmán [place] [facility] [place] [facility] , [address] [place] [id number] 0 03/09 CBC w/ auto diff NRBC % #/100W BC 0.0 0.2 0.0 FINAL Marlene Guzmán [place] [facility] [place] [facility] , [address] [place] [id number] 0 03/09 CBC w/ auto diff RBC M/uL 3.9 5.1 5.08 FINAL Marlene Guzmán [place] [facility] [place] [facility] , [address] [place] [id number] 0 03/09 CBC w/ auto diff HCT % 35.0 48.0 42.9 FINAL Marlene Guzmán [place] [facility] [place] [facility] , [address] [place] [id number] 0 03/09 CBC w/ auto diff MCV fL 80.0 104.0 84.4 FINAL Marlene Guzmán [place] [facility] [place] [facility] , [address] [place] [id number] 0 03/09 CBC w/ auto diff MCH pg 26.0 35.0 28.3 FINAL Marlene Guzmán [place] [facility] [place] [facility] , [address] [place] [id number] 0 03/09 CBC w/ auto diff MCHC g/dL 30.0 35.0 33.6 FINAL Marlene Guzmán [place] [facility] , [address] [place] [id number] 0 03/09 CBC w/ auto diff MPV fL 9.5 13.4 9.6 FINAL Marlene Guzmán [place] [facility] [place] [facility] , [address] [place] [id number] 0 03/09 CBC w/ auto diff RDW % 11.4 16.1 14.20 FINAL Marlene Guzmán [place] [facility] [place] [facility] , [address] [place] [id number] 0 03/09 Total prote in g/dL 6.3 8.2 7.1 FINAL Marlene Guzmán * [place] [facility] [place] [facility] , [address] [place] [id number] 0 03/09 Album in, SPE g/dL 3.31 5.31 4.70 FINAL Marlene Guzmán * [facility] , [address] [facility] [facility] [address] [id number] 0 03/09 Alpha -1 globu tony g/dL 0.19 0.42 0.23 FINAL Marlene Guzmán * [facility] , [address] [facility] [id number] 0 03/09 Alpha -2 globu tony g/dL 0.44 1.03 0.52 FINAL Marlene Guzmán * [facility] , [address] [facility] [address] [id number] 0 03/09 Beta globu tony g/dL 0.52 1.05 0.80 FINAL Marlene Guzmán * [facility] , [address] [facility] [address] [id number] 0 03/09 Gamma globu tony g/dL 0.59 1.46 0.85 FINAL Marlene Guzmán * [facility] , [address] [id number] 0 03/09 Elect Gemma layton in Lab resul t note Previou sly identif ied parapro teins detecte d in gamma region. Is now 0.3 and 0.4 gm/dL. Interpr eted and signed by Luis Guillermo MD on 025 FINAL Marlene Guzmán * [facility] , [address] [facility] [id number] 0 03/09 M-spi ke, SPE, g/dL g/dL 0.0 0.0 0.3 High FINAL Marlene Guzmán * [facility] , [address] [id number] 0 03/09 M-spi ke 2, SPE g/dL 0.0 0.0 0.4 High FINAL Marlene Guzmán * [facility] , [address] [facility] [id number] 0 03/09 Immun oglob ulin measu remen t IgG, quant mg/dL 610.0 1616.0 1080.49 Test performed at [facility] on a Binding Site Optilite Analyzer that uses a turbidime tric method for analysis. Patient testing should not be performed using multiple methodolo gies due to analytica l variation seen between test methodolo gies. FINAL Marlene Ramirez * [facility] , [address] [facility] [id number] 0 03/09 Immun oglob ulin measu remen t IgA, quant mg/dL 61.0 348.0 577.26 High Test performed at [facility] on a Binding Site Optilite Analyzer that uses a turbidime tric method for analysis. Patient testing should not be performed using multiple methodolo gies due to analytica l variation seen between test methodolo gies. FINAL Marlene Ramirez * [facility] , [address] [facility] [id number] 0 03/09 Immun oglob ulin measu remen t IgM, quant mg/dL 35.0 242.0 91.00 Test performed at [facility] on a Binding Site Optilite Analyzer that uses a turbidime tric method for analysis. Patient testing should not be performed using multiple methodolo gies due to analytica l variation seen between test methodolo gies. FINAL Marlene Guzmán * [facility] , [address] [facility] [id number] 0 04/03 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 History of Present Illness ([facility]): 63 y.o.?? * Presented with c/o PMB * Pap 08/01/22:?? MYRA * 05/04/23 CT A/P:?? Splenomegaly 15.7 cm.?? Renal cortical cysts.?? 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 1.4 cm splenic artery aneurysm.?? Diffuse hepatic steatosis.?? Nodular hepatic surface coutour suggestfibrosis/cirrhosis.?? Secondary signs of portal HTN with recanalized paraumbilical vein and splenome ersato. * 05/10/23 PUS:?? Uterus 8.5 x 5.2 [...] atypical hyperplasia, negative for carcinoma?? Genetic Testing ([facility]): Interval History ([facility]) She was transferred from [facility] to [facility] after surgery from 09/03-09/09/23.?? She [...] Hysteroscopy with myosure, D & C 06/28/23 geochemist History: - 3 , 1 SAb Allergies: [...] Methocarbamol Oral 500 mg tablet prn * [place] (Hydrocodone-Acetaminophen Oral 5 mg-325 mg) 5-325 mg [...] BSA: 2.36, BMI: 47.71 kg/m2 Physical Exam ([facility]): General:?? Anxious, , female with somewhat [...] record:05/23/2019 Last record:05/23/2019; ) Assessment & Plan ([facility]): 63?? y.o. 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 Pathology benign. Reviewedpathology, operative findings, expected recovery.?? She is recovering well, no further restrictions.?? 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 Pain Care Management: Pain Scale: 0 Patient Care needs: Depressions Status: Was not screened Reason: Patient Refused; Screening Date: 10/11/2023 Psycho-Social PHQ-9 Follow-up Plan (if applicable): Smoking Status: Smoking Tobacco : Never smoker; Smokeless Tobacco : none found; Vaping : none found ATIYA Williamson Copy to: November Kishore BAEZ FAX Mitra Hernandez MD (Referring) Selnea Fatima MD Electronically signed by Judy RAJPUT 10/11/2023 15:27 MANAGER OF CASE MANAGEMENT
--- OUTSIDE RECORDS SUMMARY | 2025-07-06 23:13 | XMS_ITS ---
Author Name Interface, [id number] lity Address [address] [facility] [address] [place] [address] [facility] Address [address] [facility] [address] [place] [address] Support Name Relationship Address Phone Greg Henry [...] Ordered By Specimen Source Lab Address 11/05 [facility] other lab See lead electrical engineer d 11/08 Mis other lab See lead electrical engineer d 11/22 Color (ua) Yellow FINAL [facility] [place], [address] [facility] [address] [place] [phone] 0 Phone: () - 11/22 Appea ying (ua) Clear FINAL [facility] [place], [address] [facility] [address] [place] [phone] 0 Phone: () - 11/22 Gluco se (ua), qual 500.0% Abnor mal FINAL [facility] [place], [address] [facility] [address] [place] [phone] 0 Phone: () - 11/22 Bilir ubin (ua) Negativ e FINAL [facility] [place], [address] [facility] [address] [place] [phone] 0 Phone: () - 11/22 Urina lysis , aceto ne or keton e chapo s measu remen t Negativ e FINAL [facility] [place], [address] [facility] [address] [place] [phone] 0 Phone: () - 11/22 Speci fic gravi ty (ua) 1.005 1.02 1.025% Abnor mal FINAL [facility] [place], [address] [facility] [address] [place] [id number] 0 Phone: () - 11/22 Blood (ua) Negativ e FINAL [facility] [place], [address] [facility] [address] [place] [id number] 0 Phone: () - 11/22 pH (ua) 5.0 8.0 6.0% FINAL [facility] [place], [address] [facility] [address] [place] [id number] 0 Phone: () - 11/22 Prote in (ua) Negativ e FINAL [facility] [place], [address] [place] [address] [address] [place] [phone] 0 Phone: () - 11/22 Urobi linog en (ua) 0.2 1.0 0.2% FINAL [facility] [place], [address] [place] [address] [address] [place] [id number] 0 Phone: () - 11/22 Nitri te (ua) Negativ e FINAL [facility] [place], [address] [facility] [address] [place] [phone] 0 Phone: () - 11/22 Leuko cyte jerson ase (ua), qual Negativ e FINAL [facility] [place], [address] [facility] [address] [place] [phone] 0 Phone: () - 11/22 UA comme nt 1 Dipstic k negativ e- Culture ordered per provide r FINAL [facility] [place], [address] [facility] [address] [facility] [phone] 0 Phone: () - 11/22 Urine cultu re panel CULTU RE, URINE , ROUTI NE SEE NOTE Abnor mal CULTURE, URINE, ROUTINEMi microbiology manager Number: [id number] est Status: FinalSpec imen Source: UrineSpec imen [...] f. FINAL Hafsa Farrell [facility] [address] [facility] [phone] 4 12/18 [facility] other lab See lead electrical engineer d 04/18 Total prote in g/dL 6.3 8.2 6.9 FINAL Marlene Ramirez * [facility], [address] [id number] 0 04/18 Album in, SPE g/dL 3.31 5.31 3.97 FINAL Marlene Guzmán * [facility], [address] [id number] 0 04/18 Alpha -1 globu tony g/dL 0.19 0.42 0.26 FINAL Marlene Guzmán * [facility], [address] [id number] 0 04/18 Alpha -2 globu tony g/dL 0.44 1.03 0.63 FINAL Marlene Guzmán * [facility], [address] [id number] 0 04/18 Beta globu tony g/dL 0.52 1.05 0.95 FINAL Marlene Ramirez * [facility], [address] [id number] 0 04/18 Gamma globu tony g/dL 0.59 1.46 1.10 FINAL Marlene Guzmán * [facility], [address] [id number] 0 04/18 Gemma Rodriguez in Lab resul t note Previou sly identif ied parapro teins detecte d in gamma region. Were 0.3 and 0.4 gm/dL, now 0.3 and 0.3 gm/dL. Interpr eted and signed by Adrienne Swanson MD on 024 FINAL Marlene Guzmán * [facility], [address] [facility] [address] [id number] 0 04/18 M-spi ke, SPE, g/dL g/dL 0.0 0.0 0.3 High FINAL Marlene Guzmán * [facility], [address] [facility] [address] [id number] 0 04/18 M-spi ke 2, SPE g/dL 0.0 0.0 0.3 High FINAL Marleneanabel Guzmán * [facility], [facility]0 [facility] [address] [place] [address] [id number] 0 04/18 Immun oglob ulin measu remen t IgG, quant mg/dL 610.0 1616.0 946.67 Test performed at [facility] on a Binding [employer] Optilite Analyzer that uses a turbidime tric method for analysis. Patient testing should not be performed using multiple methodolo gies due to analytica l variation seen between test methodolo gies. FINAL Marleneanabel Guzmán * [facility] [address] [place] [address] [id number] 0 04/18 Immun oglob ulin measu remen t IgA, quant mg/dL 61.0 348.0 493.08 High Test performed at [facility] on a Binding [employer] Optilite Analyzer that uses a turbidime tric method for analysis. Patient testing should not be performed using multiple methodolo gies due to analytica l variation seen between test methodolo gies. FINAL Marlene Guzmán * [facility], [address] [place] [address] [place] [address] [id number] 0 04/18 Immun oglob ulin measu remen t IgM, quant mg/dL 35.0 242.0 75.62 Test performed at [facility] on a Binding Site Optilite Analyzer that uses a turbidime tric method for analysis. Patient testing should not be performed using multiple methodolo gies due to analytica l variation seen between test methodolo gies. FINAL Marlene [facility]e [facility], [facility]0 [facility] [address] [id number] 0 04/18 Free kappa / lambd a with K/L ratio , serum [place] light chain , free, serum , mg/dL mg/dL 0.33 1.94 3.62 High Test performed at [facility] on a Binding Site Optilite Analyzer that uses a turbidime tric method for analysis. Patient testing should not be performed using multiple methodolo gies due to analytica l variation seen between test methodolo gies. FINAL Marlene Rubi a [facility], [address] [facility] [address] [id number] 0 04/18 Free kappa / lambd a with K/L ratio , serum Lambd a light chain , free, serum , mg/dL mg/dL 0.57 2.63 3.13 High Test performed at [facility] on a Binding [employer] Optilite Analyzer that uses a turbidime tric method for analysis. Patient testing should not be performed using multiple methodolo gies due to analytica l variation seen between test methodolo gies. FINAL Marlene Rubi a [facility], [address] [id number] 0 04/18 Free kappa / lambd a with K/L ratio , serum K/L light chain ratio , free, serum 0.26 1.65 1.16% FINAL Marlene [facility], [address] [id number] 0 04/18 CBC w/ auto diff WBC K/uL 3.0 8.9 7.0 FINAL Marlene Rubi [facility], [address] [facility] [address] [facility] [id number] 0 Phone: () - 04/18 CBC w/ auto diff HGB g/dL 11.3 15.2 14.0 FINAL Marlene [facility] [place], [address] [place] [id number] 0 Phone: () - 04/18 CBC w/ auto diff PLT K/uL 113.0 364.0 164 FINAL Marlene [facility] [place], [address] [place] [id number] 0 Phone: () - 04/18 CBC w/ auto diff Tammy # (ANC) K/uL 1.6 6.6 4.5 FINAL Marlene [facility] - [place], [address] [place] [id number] 0 Phone: () - 04/18 CBC w/ auto diff Tammy % % 43.0 74.0 64.0 FINAL Marlene [facility] - [place], [address] [place] [id number] 0 Phone: () - 04/18 CBC w/ auto diff IG % % 0.0 0.5 0.3 FINAL Marlene [facility] - [place], [address] [place] [id number] 0 Phone: () - 04/18 CBC w/ auto diff IG # K/uL 0.0 0.03 0.02 FINAL Marlene [facility] - [place], [address] [place] [id number] 0 Phone: () - 04/18 CBC w/ auto diff LY % % 14.0 41.0 28.2 FINAL Marlene Rubi a [facility] - [place], [address] [place] [id number] 0 Phone: () - 04/18 CBC w/ auto diff MO % % 6.0 15.0 6.0 FINAL Marlene Guzmán [facility] - [place], [address] [place] [id number] 0 Phone: () - 04/18 CBC w/ auto diff EO % % 0.0 7.0 1.1 FINAL Marlene [facility] - [place], [address] [place] [id number] 0 Phone: () - 04/18 CBC w/ auto diff BA % % 0.0 2.0 0.4 FINAL Mar[facility] - [place], [address] [place] [id number] 0 Phone: () - 04/18 CBC w/ auto diff LY # K/uL 0.4 3.6 2.0 FINAL Marlene Guzmán [facility] - [place], [address] [place] [id number] 0 Phone: () - 04/18 CBC w/ auto diff MO # K/uL 0.2 1.3 0.4 FINAL Marlene Ramirez [facility] [place], [address] [place] [id number] 0 Phone: () - 04/18 CBC w/ auto diff EO # K/uL 0.0 0.6 0.1 FINAL Marlene Ramirez [facility] [place], [address] [place] [id number] 0 Phone: () - 04/18 CBC w/ auto diff BA # K/uL 0.0 0.2 0.0 FINAL Marlene Ramirez [facility] - [place], [address] [place] [id number] 0 Phone: () - 04/18 CBC w/ auto diff NRBC % #/100W BC 0.0 0.2 0.0 FINAL Marlene Guzmán [facility] - [place], [address] [place] [id number] 0 Phone: () - 04/18 CBC w/ auto diff RBC M/uL 3.9 5.1 4.84 FINAL Marlene Guzmán [facility] - [place], [address] [place] [id number] 0 Phone: () - 04/18 CBC w/ auto diff HCT % 35.0 48.0 40.4 FINAL Marlene Rubi a [facility] - [place], [address] [place] [id number] 0 Phone: () - 04/18 CBC w/ auto diff MCV fL 80.0 104.0 83.5 FINAL Marlene [facility] - [place], [address] [place] [id number] 0 Phone: () - 04/18 CBC w/ auto diff MCH pg 26.0 35.0 28.9 FINAL Marlene Rubi a [facility] - [place], [address] [place] [id number] 0 Phone: () - 04/18 CBC w/ auto diff MCHC g/dL 30.0 35.0 34.7 FINAL Marlene Rubi a [facility] - [place], [address] [place] [id number] 0 Phone: () - 04/18 CBC w/ auto diff MPV fL 9.5 13.4 9.7 FINAL Marlene Rubi a [facility] - [place], [address] [place] [id number] 0 Phone: () - 04/18 CBC w/ auto diff RDW % 11.4 16.1 13.80 FINAL Marlene Rubi [facility] - [place], [address] [place] [id number] 0 Phone: () - 04/18 CMP Album in g/dL 3.5 5.0 4.0 FINAL Marlene Guzmán * [facility] [place], [address] [place] [id number] 0 04/18 CMP Alkal ine phosp hatas e U/L 36.0 125.0 105 FINAL Marlene Guzmán * [facility] [place], [address] [facility] [id number] 0 04/18 CMP ALT/S GPT U/L 0.0 34.0 35 High FINAL Marlene Guzmán * [facility] [address] [facility] [id number] 0 04/18 CMP AST/S GOT U/L 14.0 36.0 44 High FINAL Marlene Guzmán * [facility], [address] [facility] [id number] 0 04/18 CMP BUN mg/dL 7.0 17.0 21.0 High FINAL Marlene Guzmán * [facility], [address] [facility] [id number] 0 04/18 CMP Calci um mg/dL 8.4 10.2 8.8 FINAL Marlene Guzmán * [facility], [address] [facility] [id number] 0 04/18 CMP Chlor nilson mmol/L 96.0 107.0 106 FINAL Marlene Guzmán * [facility], [address] [facility] [id number] 0 04/18 CMP CO2 mmol/L 22.0 30.0 [...] hour stability window. FINAL Marlene Guzmán * [facility], [address] [facility] [id number] 0 04/18 CMP Creat inine mg/dL 0.66 1.25 0.70 FINAL Marlene Guzmán * [facility], [address] [facility] [address] [id number] 0 04/18 CMP GFR estim ate ml/min /1.73m ^2 97.7 GFR is calculate d using the CKD-EPI equation. FINAL Marlene Stroud [facility], [address] [facility] [address] [id number] 0 04/18 CMP Gluco se mg/dL 74.0 100.0 267 High FINAL Marlene Guzmán * [facility] [address] [id number] 0 04/18 CMP Potas sium mmol/L 3.5 5.1 4.0 FINAL Marlene Guzmán * [facility], [address] [facility] [address] [id number] 0 04/18 CMP Sodiu m mmol/L 137.0 145.0 136 Low FINAL Marlene Guzmán * [facility], [address] [facility] [address] [id number] 0 04/18 CMP Bilir ubin, total mg/dL 0.2 1.3 1.0 FINAL Marlene Guzmán * [facility], [address] [facility] [address] [id number] 0 04/18 CMP Total prote in g/dL 6.3 8.2 7.3 FINAL Marlene Guzmán * [facility], [address] [facility] [address] [id number] 0 04/18 [facility] other lab See lead electrical engineer d 12/20 Mis other lab See lead electrical engineer d 12/20 [facility] other lab See lead electrical engineer d 03/09 Free kappa / lambd a with K/L ratio , serum [place] light chain , free, serum , mg/dL mg/dL 0.33 1.94 4.35 High Test performed at [facility] on a Binding Site Optilite Analyzer that uses a turbidime tric method for analysis. Patient testing should not be performed using multiple methodolo gies due to analytica l variation seen between test methodolo gies. FINAL Marlene Guzmán * [facility] , [address] [facility] [address] [facility] [id number] 0 03/09 Free kappa / lambd a with K/L ratio , serum Lambd a light chain , free, serum , mg/dL mg/dL 0.57 2.63 3.83 High Test performed at [facility] on a Binding Site Optilite Analyzer that uses a turbidime tric method for analysis. Patient testing should not be performed using multiple methodolo gies due to analytica l variation seen between test methodolo gies. FINAL Marlene Guzmán * [facility] , [address] [facility] [address] [id number] 0 03/09 Free kappa / lambd a with K/L ratio , serum K/L light chain ratio , free, serum 0.26 1.65 1.14% FINAL Marlene Guzmán * [facility] , [address] [facility] [address] [id number] 0 03/09 CMP Album in g/dL 3.5 5.0 3.8 FINAL Marlene Guzmán * [facility] , [address] [facility] [address] [id number] 0 03/09 CMP Alkal ine phosp hatas e U/L 36.0 125.0 106 FINAL Marlene Guzmán * [facility] , [address] [facility] [place] [facility] [address] [facility] [id number] 0 03/09 CMP ALT/S GPT U/L 0.0 34.0 37 High FINAL Marlene Guzmán * [facility] , [address] [facility] [id number] 0 03/09 CMP AST/S GOT U/L 14.0 36.0 36 FINAL Marlene Guzmán * [facility] , [address] [facility] [id number] 0 03/09 CMP BUN mg/dL 7.0 17.0 18.0 High FINAL Marlene Guzmán * [facility] , [address] [facility] [id number] 0 03/09 CMP Calci um mg/dL 8.4 10.2 8.9 FINAL Marlene Guzmán * [facility] , [address] [facility] [id number] 0 03/09 CMP Chlor nilson mmol/L 96.0 107.0 99 FINAL Marlene Guzmán * [facility] , [address] [facility] [id number] 0 03/09 CMP CO2 mmol/L 22.0 30.0 [...] hour stability window. FINAL Marleneanabel Guzmán * [facility] , [address] [facility] [id number] 0 03/09 CMP Creat inine mg/dL 0.66 1.25 0.70 FINAL Marlene Guzmán * [facility] , [address] [facility] [id number] 0 03/09 CMP GFR estim ate ml/min /1.73m ^2 97.1 GFR is calculate d using the CKD-EPI equation. FINAL Marlene Ramirez * [facility] , [address] [facility] [id number] 0 03/09 CMP Gluco se mg/dL 74.0 100.0 363 Criti sami High FINAL Marlene Ramirez * [facility] , [address] [facility] [id number] 0 03/09 CMP Potas sium mmol/L 3.5 5.1 3.9 FINAL Marlene Ramirez * [facility] , [address] [facility] [id number] 0 03/09 CMP Sodiu m mmol/L 137.0 145.0 134 Low FINAL Marlene Ramirez * [facility] , [address] [facility] [id number] 0 03/09 CMP Bilir ubin, total mg/dL 0.2 1.3 1.1 FINAL Marlene Ramirez * [facility] , [address] [facility] [id number] 0 03/09 CMP Total prote in g/dL 6.3 8.2 7.3 FINAL Marlene Guzmán * [facility] , [address] [facility] [id number] 0 03/09 CBC w/ auto diff WBC K/uL 3.0 8.9 7.1 FINAL Marlene Guzmán [place] [facility] [place] [facility] , [address] [place] [id number] 0 03/09 CBC w/ auto diff HGB g/dL 11.3 15.2 14.4 FINAL Marlene Guzmán [place] [facility] [place] [facility] , [address] [place] [id number] 0 03/09 CBC w/ auto diff PLT K/uL 113.0 364.0 179 FINAL Marlene Guzmán [place] [facility] [place] [facility] , [address] [place] [id number] 0 03/09 CBC w/ auto diff Tammy # (ANC) K/uL 1.6 6.6 4.7 FINAL Marlene Guzmán [place] [facility] [place] [facility] , [address] [place] [id number] 0 03/09 CBC w/ auto diff Tammy % % 43.0 74.0 65.7 FINAL Marlene Guzmán [place] [facility] [place] [facility] , [address] [place] [id number] 0 03/09 CBC w/ auto diff IG % % 0.0 0.5 0.6 High FINAL Marlene Guzmán [place] [facility] [place] [facility] , [address] [place] [id number] 0 03/09 CBC w/ auto diff IG # K/uL 0.0 0.03 0.04 High FINAL Marlene Guzmán [place] [facility] [place] [facility] , [address] [place] [id number] 0 03/09 CBC w/ auto diff LY % % 14.0 41.0 25.8 FINAL Marlene Guzmán [place] [facility] [place] [facility] , [address] [place] [id number] 0 03/09 CBC w/ auto diff MO % % 6.0 15.0 6.2 FINAL Marlene Guzmán [place] [facility] [place] [facility] , [address] [place] [id number] 0 03/09 CBC w/ auto diff EO % % 0.0 7.0 1.1 FINAL Marlene Guzmán [place] [facility] [place] [facility] , [address] [place] [id number] 0 03/09 CBC w/ auto diff BA % % 0.0 2.0 0.6 FINAL Marlene Guzmán [place] [facility] [place] [facility] , [address] [place] [id number] 0 03/09 CBC w/ auto diff LY # K/uL 0.4 3.6 1.8 FINAL Marlene Guzmán [place] [facility] [place] [facility] , [address] [place] [id number] 0 03/09 CBC w/ auto diff MO # K/uL 0.2 1.3 0.4 FINAL Marlene Guzmán [place] [facility] [place] [facility] , [address] [place] [id number] 0 03/09 CBC w/ auto diff EO # K/uL 0.0 0.6 0.1 FINAL Marlene Guzmán [place] [facility] [place] [facility] , [address] [place] [id number] 0 03/09 CBC w/ auto diff BA # K/uL 0.0 0.2 0.0 FINAL Marlene Guzmán [place] [facility] [place] [facility] , [address] [place] [id number] 0 03/09 CBC w/ auto diff NRBC % #/100W BC 0.0 0.2 0.0 FINAL Marlene Guzmán [place] [facility] [place] [facility] , [address] [place] [id number] 0 03/09 CBC w/ auto diff RBC M/uL 3.9 5.1 5.08 FINAL Marlene Guzmán [place] [facility] [place] [facility] , [address] [place] [id number] 0 03/09 CBC w/ auto diff HCT % 35.0 48.0 42.9 FINAL Marlene Guzmán [place] [facility] [place] [facility] , [address] [place] [id number] 0 03/09 CBC w/ auto diff MCV fL 80.0 104.0 84.4 FINAL Marlene Guzmán [place] [facility] [place] [facility] , [address] [place] [id number] 0 03/09 CBC w/ auto diff MCH pg 26.0 35.0 28.3 FINAL Marlene Guzmán [place] [facility] [place] [facility] , [address] [place] [id number] 0 03/09 CBC w/ auto diff MCHC g/dL 30.0 35.0 33.6 FINAL Marlene Guzmán [place] [facility] , [address] [place] [id number] 0 03/09 CBC w/ auto diff MPV fL 9.5 13.4 9.6 FINAL Marlene Guzmán [place] [facility] [place] [facility] , [address] [place] [id number] 0 03/09 CBC w/ auto diff RDW % 11.4 16.1 14.20 FINAL Marlene Guzmán [place] [facility] [place] [facility] , [address] [place] [id number] 0 03/09 Total prote in g/dL 6.3 8.2 7.1 FINAL Marlene Guzmán * [place] [facility] [place] [facility] , [address] [place] [id number] 0 03/09 Album in, SPE g/dL 3.31 5.31 4.70 FINAL Marlene Guzmán * [facility] , [address] [facility] [address] [id number] 0 03/09 Alpha -1 globu tony g/dL 0.19 0.42 0.23 FINAL Marlene Guzmán * [facility] , [address] [facility] [address] [facility] [id number] 0 03/09 Alpha -2 globu tony g/dL 0.44 1.03 0.52 FINAL Marlene Guzmán * [facility] , [address] [facility] [facility] [address] [id number] 0 03/09 Beta globu tony g/dL 0.52 1.05 0.80 FINAL Marlene Guzmán * [facility] , [address] [address] [id number] 0 03/09 Gamma globu tony g/dL 0.59 1.46 0.85 FINAL Marlene Guzmán * [facility] , [address] [facility] [facility] [address] [id number] 0 03/09 Elect Gemma layton in Lab resul t note Previou sly identif ied parapro teins detecte d in gamma region. Is now 0.3 and 0.4 gm/dL. Interpr eted and signed by Luis Guillermo MD on 025 FINAL Marlene Guzmán * [facility] , [address] [address] [facility] [id number] 0 03/09 M-spi ke, SPE, g/dL g/dL 0.0 0.0 0.3 High FINAL Marlene Guzmán * [facility] , [address] [facility] [address] [id number] 0 03/09 M-spi ke 2, SPE g/dL 0.0 0.0 0.4 High FINAL Marlene Guzmán * [facility] , [address] [facility] [id number] 03/09 Immun oglob ulin measu remen t IgG, quant mg/dL 610.0 1616.0 1080.49 Test performed at [facility] on a Binding Site Optilite Analyzer that uses a turbidime tric method for analysis. Patient testing should not be performed using multiple methodolo gies due to analytica l variation seen between test methodolo gies. FINAL Marlene Ramirez * [facility] , [address] [place] [id number] 0 03/09 Immun oglob ulin measu remen t IgA, quant mg/dL 61.0 348.0 577.26 High Test performed at [facility] on a Binding Site Optilite Analyzer that uses a turbidime tric method for analysis. Patient testing should not be performed using multiple methodolo gies due to analytica l variation seen between test methodolo gies. FINAL Marlene Ramirez * [facility] , [address] [place] [facility] [id number] 0 03/09 Immun oglob ulin measu remen t IgM, quant mg/dL 35.0 242.0 91.00 Test performed at [facility] on a Binding Site Optilite Analyzer that uses a turbidime tric method for analysis. Patient testing should not be performed using multiple methodolo gies due to analytica l variation seen between test methodolo gies. 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 History of Present Illness ([facility]): 63 y.o.?? 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 Genetic Testing ([facility]): Interval History ([facility]) She was transferred from [facility] to [facility] after surgery from 09/03-09/09/23.?? She [...] Hysteroscopy with myosure, D & C 06/28/23 etcher aircraft History: - 3 , 1 SAb Allergies: [...] Methocarbamol Oral 500 mg tablet prn * [place] (Hydrocodone-Acetaminophen Oral 5 mg-325 mg) 5-325 mg [...] BSA: 2.36, BMI: 47.71 kg/m2 Physical Exam ([facility]): General:?? Anxious, , female with somewhat [...] record:05/23/2019 Last record:05/23/2019; ) Assessment & Plan ([facility]): 63?? y.o. 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 Pathology benign. Reviewedpathology, operative findings, expected recovery.?? She is recovering well, no further restrictions.?? 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 Pain Care Management: Pain Scale: [...] Electronically signed by Judy RAJPUT 10/11/2023 15:27 [employer] [facility]
--- OUTSIDE RECORDS SUMMARY | 2025-07-06 23:14 | XMS_ITS ---
Author Name Interface, [id number] lity Address [address] [facility] [address] [place] [address] [facility] Oncology Address [address] [facility] [address] [place] [address] Support Name Relationship Address Phone Greg Ch [...] FINAL [facility] [place], [address] [place] [address] 210 [facility] [phone] Phone: () - 11/22 Appea ying (ua) Clear FINAL [facility] [place], [address] [place] [address] 210 [facility] [phone] Phone: () - 11/22 Gluco se (ua), qual 500.0% Abnor mal FINAL [facility] [place], [address] [facility] 210 [facility] [phone] 0 Phone: () - 11/22 Bilir ubin (ua) Negativ e FINAL [facility] [place], [address] [place] [address] 210 [facility] [phone] 0 Phone: () - 11/22 Urina lysis , aceto ne or keton e chapo s measu remen t Negativ e FINAL [facility] [place], [address] [facility] 210 [place] [id number] 0 Phone: () - 11/22 Speci fic gravi ty (ua) 1.005 1.02 1.025% Abnor mal FINAL [facility] [place], [address] [facility] 210 [place] [phone] 0 Phone: () - 11/22 Blood (ua) Negativ e FINAL [facility] [place], [address] [place] [address] 210 [place] [phone] 0 Phone: () - 11/22 pH (ua) 5.0 8.0 6.0% FINAL [facility] [place], [address] [place] [address] 210 [facility] [phone] Phone: () - 11/22 Prote in (ua) Negativ e FINAL [facility] [place], [address] [place] [address] 210 [place] [phone] 0 Phone: () - 11/22 Urobi linog en (ua) 0.2 1.0 0.2% FINAL [facility] [place], [address] [place] [address] 210 [place] [phone] 0 Phone: () - 11/22 Nitri te (ua) Negativ e FINAL [facility] [place], [address] [place] [address] 210 [place] [phone] 0 Phone: () - 11/22 Leuko cyte jerson ase (ua), qual Negativ e FINAL [facility] [place], [address] [place] [address] 210 [place] [phone] 0 Phone: () - 11/22 UA comme nt 1 Dipstic k negativ e- Culture ordered per provide r FINAL [facility] [place], [address] [place] [address] 210 [place] [phone] 0 Phone: () - 11/22 Urine cultu re panel CULTU RE, URINE , ROUTI NE SEE NOTE Abnor mal 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 FINAL Hafsa Bud [facility], [facility] [address] [facility] [id number] 4 12/18 [facility] other lab See compliance attorney d 04/18 Total prote in g/dL 6.3 8.2 6.9 FINAL Marlene Guzmán * [facility], [address] [facility] [address] [place] [address] [id number] 04/18 Album in, SPE g/dL 3.31 5.31 3.97 FINAL Marlene Guzmán * [facility], [facility] [address] [place] [address] [id number] 04/18 Alpha -1 globu tony g/dL 0.19 0.42 0.26 FINAL Marlene Guzmán * [facility], [facility] [address] [place] [address] [id number] 0 04/18 Alpha -2 globu tony g/dL 0.44 1.03 0.63 FINAL Marlene Guzmán * [facility], [facility] [address] [place] [address] [id number] 04/18 Beta globu tony g/dL 0.52 1.05 0.95 FINAL Marlene Guzmán * [facility], [address] [facility] [address] [place] [address] [id number] 0 04/18 Gamma globu tony g/dL 0.59 1.46 1.10 FINAL Marlene Guzmán * [facility], [address] [facility] [address] [place] [address] [id number] 0 04/18 Elect Gemma layton in Lab resul t note Previou sly identif ied parapro teins detecte d in gamma region. Were 0.3 and 0.4 gm/dL, now 0.3 and 0.3 gm/dL. Interpr eted and signed by Adrienne Swanson MD on 024 FINAL Marlene Guzmán * [facility], [facility] [address] [place] [address] [id number] 0 04/18 M-spi ke, SPE, g/dL g/dL 0.0 0.0 0.3 High FINAL Marleneanabel Guzmán * [facility], [address] [facility] [id number] 0 04/18 M-spi ke 2, SPE g/dL 0.0 0.0 0.3 High FINAL Marlene Guzmán * [facility], [address] [facility] [address] [facility] [id number] 0 04/18 Immun oglob ulin measu remen t IgG, quant mg/dL 610.0 1616.0 946.67 Test performed at [facility] on a Binding Site Optilite Analyzer that uses a turbidime tric method for analysis. Patient testing should not be performed using multiple methodolo gies due to analytica l variation seen between test methodolo gies. FINAL Marlene Guzmán * [facility], [address] [id number] 0 04/18 Immun oglob ulin measu remen t IgA, quant mg/dL 61.0 348.0 493.08 High Test performed at [facility] on a Binding Site Optilite Analyzer that uses a turbidime tric method for analysis. Patient testing should not be performed using multiple methodolo gies due to analytica l variation seen between test methodolo gies. FINAL Marlene Guzmán * [facility], [address] [id number] 0 04/18 Immun oglob ulin measu remen t IgM, quant mg/dL 35.0 242.0 75.62 Test performed at [facility] on a Binding Site Optilite Analyzer that uses a turbidime tric method for analysis. Patient testing should not be performed using multiple methodolo gies due to analytica l variation seen between test methodolo gies. FINAL Marlene Guzmán * [facility] [place], [address] [id number] 0 04/18 Free kappa / lambd a with K/L ratio , serum [place] light chain , free, serum , mg/dL mg/dL 0.33 1.94 3.62 High Test performed at [facility] on a Binding Site Optilite Analyzer that uses a turbidime tric method for analysis. Patient testing should not be performed using multiple methodolo gies due to analytica l variation seen between test methodolo gies. FINAL Marlene Stroud [facility], [address] [id number] 0 04/18 Free kappa / lambd a with K/L ratio , serum Lambd [place] light chain , free, serum , mg/dL mg/dL 0.57 2.63 3.13 High Test performed at [facility] on a Binding Site Optilite Analyzer that uses a turbidime tric method for analysis. Patient testing should not be performed using multiple methodolo gies due to analytica l variation seen between test methodolo gies. FINAL [facility], [address] [facility] [address] [id number] 0 04/18 Free kappa / lambd a with K/L ratio , serum K/L light chain ratio , free, serum 0.26 1.65 1.16% FINAL [facility], [address] [facility] [address] [id number] 0 04/18 CBC w/ auto diff WBC K/uL 3.0 8.9 7.0 FINAL Marlene [facility] [place], [address] [facility] [id number] 0 Phone: () - 04/18 CBC w/ auto diff HGB g/dL 11.3 15.2 14.0 FINAL Marlene [facility] - [place], [address] [place] [id number] 0 Phone: () - 04/18 CBC w/ auto diff PLT K/uL 113.0 364.0 164 FINAL Marlene [facility] - [place], [address] [place] [id number] 0 Phone: () - 04/18 CBC w/ auto diff Tammy # (ANC) K/uL 1.6 6.6 4.5 FINAL Marlene [facility] - [place], [address] [place] [id number] 0 Phone: () - 04/18 CBC w/ auto diff Tammy % % 43.0 74.0 64.0 FINAL Marlene Ramirez [facility] [place], [address] [place] [id number] 0 Phone: () - 04/18 CBC w/ auto diff IG % % 0.0 0.5 0.3 FINAL Marlene Ramirez [facility] [place], [address] [place] [id number] 0 Phone: () - 04/18 CBC w/ auto diff IG # K/uL 0.0 0.03 0.02 FINAL Marlene Ramirez [facility] [place], [address] [place] [id number] 0 Phone: () - 04/18 CBC w/ auto diff LY % % 14.0 41.0 28.2 FINAL Marlene Guzmán [facility] [place], [address] [place] [id number] 0 Phone: () - 04/18 CBC w/ auto diff MO % % 6.0 15.0 6.0 FINAL Marlene Guzmán [facility] [place], [address] [place] [id number] 0 Phone: () - 04/18 CBC w/ auto diff EO % % 0.0 7.0 1.1 FINAL Marlene Ramirez [facility] [place], [address] [place] [id number] 0 Phone: () - 04/18 CBC w/ auto diff BA % % 0.0 2.0 0.4 FINAL Marlene [facility] [place], [address] [place] [id number] 0 Phone: () - 04/18 CBC w/ auto diff LY # K/uL 0.4 3.6 2.0 FINAL Marlene [facility] - [place], [address] [place] [id number] 0 Phone: () - 04/18 CBC w/ auto diff MO # K/uL 0.2 1.3 0.4 FINAL Marlene [facility] - [place], [address] [place] [id number] 0 Phone: () - 04/18 CBC w/ auto diff EO # K/uL 0.0 0.6 0.1 FINAL Marlene [facility] - [place], [address] [place] [id number] 0 Phone: () - 04/18 CBC w/ auto diff BA # K/uL 0.0 0.2 0.0 FINAL Marlene [facility] - [place], [address] [place] [id number] 0 Phone: () - 04/18 CBC w/ auto diff NRBC % #/100W BC 0.0 0.2 0.0 FINAL Marlene [facility] - [place], [address] [place] [id number] 0 Phone: () - 04/18 CBC w/ auto diff RBC M/uL 3.9 5.1 4.84 FINAL Marlene [facility] [place], [address] [place] [id number] 0 Phone: () - 04/18 CBC w/ auto diff HCT % 35.0 48.0 40.4 FINAL Marlene Guzmán [facility] [place], [address] [place] [id number] 0 Phone: () - 04/18 CBC w/ auto diff MCV fL 80.0 104.0 83.5 FINAL Marlene Guzmán [facility] [place], [address] [place] [id number] 0 Phone: () - 04/18 CBC w/ auto diff MCH pg 26.0 35.0 28.9 FINAL Marlene Guzmán [facility] [place], [address] [place] [id number] 0 Phone: () - 04/18 CBC w/ auto diff MCHC g/dL 30.0 35.0 34.7 FINAL Marlene Guzmán [facility] [place], [address] [place] [id number] 0 Phone: () - 04/18 CBC w/ auto diff MPV fL 9.5 13.4 9.7 FINAL Marlene Guzmán [facility] [place], [address] [place] [id number] 0 Phone: () - 04/18 CBC w/ auto diff RDW % 11.4 16.1 13.80 FINAL Marlene Guzmán [facility] [place], [address] [place] [id number] 0 Phone: () - 04/18 CMP Album in g/dL 3.5 5.0 4.0 FINAL Marlene Guzmán * [facility] [place], [address] [place] [id number] 0 04/18 CMP Alkal ine phosp hatas e U/L 36.0 125.0 105 FINAL Marlene Guzmán * [facility] [place], [address] [place] [id number] 0 04/18 CMP ALT/S GPT U/L 0.0 34.0 35 High FINAL Marlene Guzmán * [facility], [address] [facility] [address] [id number] 0 04/18 CMP AST/S GOT U/L 14.0 36.0 44 High FINAL Marlene Guzmán * [facility], [address] [facility] [address] [id number] 0 04/18 CMP BUN mg/dL 7.0 17.0 21.0 High FINAL Marlene Guzmán * [facility], [address] [facility] [address] [id number] 0 04/18 CMP Calci um mg/dL 8.4 10.2 8.8 FINAL Marlene Guzmán * [facility], [address] [facility] [address] [id number] 0 04/18 CMP Chlor nilson mmol/L 96.0 107.0 106 FINAL Marlene Guzmán * [facility], [address] [facility] [address] [id number] 0 04/18 CMP CO2 mmol/L 22.0 30.0 [...] hour stability window. FINAL Marlene Guzmán * [facility], [address] [facility] [address] [id number] 0 04/18 CMP Creat inine mg/dL 0.66 1.25 0.70 FINAL Marlene Guzmán * [facility], [address] [facility] [id number] 0 04/18 CMP GFR estim ate ml/min /1.73m ^2 97.7 GFR is calculate d using the CKD-EPI equation. FINAL Marlene Guzmán * [facility], [address] [facility] [id number] 0 04/18 CMP Gluco se mg/dL 74.0 100.0 267 High FINAL Marlene Guzmán * [facility], [address] [facility] [id number] 0 04/18 CMP Potas sium mmol/L 3.5 5.1 4.0 FINAL Marlene Guzmán * [facility], [address] [facility] [id number] 0 04/18 CMP Sodiu m mmol/L 137.0 145.0 136 Low FINAL Marlene Guzmán * [facility], [address] [facility] [id number] 0 04/18 CMP Bilir ubin, total mg/dL 0.2 1.3 1.0 FINAL Marlene Guzmán * [facility], [address] [facility] [id number] 0 04/18 CMP Total prote in g/dL 6.3 8.2 7.3 FINAL Marlene Guzmán * [facility], [address] [facility] [id number] 0 04/18 [facility] other lab See compliance attorney d 12/20 [facility] other lab See compliance attorney d 12/20 Misc other lab See compliance attorney d 03/09 Free kappa / lambd a with K/L ratio , serum [place] light chain , free, serum , mg/dL mg/dL 0.33 1.94 4.35 High Test performed at [facility] on a Binding Site Optilite Analyzer that uses a turbidime tric method for analysis. Patient testing should not be performed using multiple methodolo gies due to analytica l variation seen between test methodolo gies. FINAL Marlene Guzmán * [facility] , [address] [facility] [address] [facility] [id number] 0 03/09 Free kappa / lambd a with K/L ratio , serum [place] light chain , free, serum , mg/dL mg/dL 0.57 2.63 3.83 High Test performed at [facility] on a Binding Site Optilite Analyzer that uses a turbidime tric method for analysis. Patient testing should not be performed using multiple methodolo gies due to analytica l variation seen between test methodolo gies. FINAL Marlene Guzmán * [facility] , [address] [facility] [address] [id number] 0 03/09 Free kappa / lambd a with K/L ratio , serum K/L light chain ratio , free, serum 0.26 1.65 1.14% FINAL Marlene Guzmán * [facility] , [address] [facility] [address] [id number] 0 03/09 CMP Album in g/dL 3.5 5.0 3.8 FINAL Marlene Guzmán * [facility] , [address] [facility] [address] [id number] 0 03/09 CMP Alkal ine phosp hatas e U/L 36.0 125.0 106 FINAL Marlene Guzmán * [facility] , [address] [facility] [address] [id number] 0 03/09 CMP ALT/S GPT U/L 0.0 34.0 37 High FINAL Marlene Guzmán * [facility] , [address] [facility] [address] [id number] 0 03/09 CMP AST/S GOT U/L 14.0 36.0 36 FINAL Marlene Ramirez * [facility] , [address] [facility] [address] [facility] [id number] 0 03/09 CMP BUN mg/dL 7.0 17.0 18.0 High FINAL Marlene Guzmán * [facility] , [address] [facility] [address] [facility] [id number] 0 03/09 CMP Calci um mg/dL 8.4 10.2 8.9 FINAL Marlene Guzmán * [facility] , [address] [facility] [address] [facility] [id number] 0 03/09 CMP Chlor nilson mmol/L 96.0 107.0 99 FINAL Marlene Guzmán * [facility] , [address] [facility] [address] [facility] [id number] 0 03/09 CMP CO2 mmol/L 22.0 30.0 [...] hour stability window. FINAL Marlene Guzmán * [facility] , [address] [facility] [address] [facility] [id number] 0 03/09 CMP Creat inine mg/dL 0.66 1.25 0.70 FINAL Marlene Guzmán * [facility] , [address] [facility] [address] [facility] [id number] 0 03/09 CMP GFR estim ate ml/min /1.73m ^2 97.1 GFR is calculate d using the CKD-EPI equation. FINAL Marlene Guzmán * [facility] , [address] [facility] [address] [id number] 0 03/09 CMP Gluco se mg/dL 74.0 100.0 363 Criti sami High FINAL Marlene Guzmán * [facility] , [address] [facility] [address] [facility] [id number] 0 03/09 CMP Potas sium mmol/L 3.5 5.1 3.9 FINAL Marlene Guzmán * [facility] , [address] [facility] [address] [facility] [id number] 0 03/09 CMP Sodiu m mmol/L 137.0 145.0 134 Low FINAL Marlene Guzmán * [facility] , [address] [facility] [address] [facility] [id number] 0 03/09 CMP Bilir ubin, total mg/dL 0.2 1.3 1.1 FINAL Marlene Guzmán * [facility] , [address] [facility] [address] [facility] [id number] 0 03/09 CMP Total prote in g/dL 6.3 8.2 7.3 FINAL Marlene Guzmán * [facility] , [address] [facility] [address] [facility] [id number] 0 03/09 CBC w/ auto diff WBC K/uL 3.0 8.9 7.1 FINAL Marlene Guzmán [place] [facility] [place] [facility] , [address] [place] [id number] 0 03/09 CBC w/ auto diff HGB g/dL 11.3 15.2 14.4 FINAL Marlene Guzmán [place] [facility] [place] [facility] , [address] [place] [id number] 0 03/09 CBC w/ auto diff PLT K/uL 113.0 364.0 179 FINAL Marlene Guzmán [place] [facility] [place] [facility] , [address] [place] [id number] 0 03/09 CBC w/ auto diff Tammy # (ANC) K/uL 1.6 6.6 4.7 FINAL Marlene Guzmán [place] [facility] [place] [facility] , [address] [place] [id number] 0 03/09 CBC w/ auto diff Tammy % % 43.0 74.0 65.7 FINAL Marlene Guzmán [place] [facility] [place] [facility] , [address] [place] [id number] 0 03/09 CBC w/ auto diff IG % % 0.0 0.5 0.6 High FINAL Marlene Guzmán [place] [facility] [place] [facility] , [address] [place] [id number] 0 03/09 CBC w/ auto diff IG # K/uL 0.0 0.03 0.04 High FINAL Marlene Guzmán [place] [facility] [place] [facility] , [address] [place] [id number] 0 03/09 CBC w/ auto diff LY % % 14.0 41.0 25.8 FINAL Marlene Guzmán [place] [facility] [place] [facility] , [address] [place] [id number] 0 03/09 CBC w/ auto diff MO % % 6.0 15.0 6.2 FINAL Marlene Guzmán [place] [facility] [place] [facility] , [address] [place] [id number] 0 03/09 CBC w/ auto diff EO % % 0.0 7.0 1.1 FINAL Marlene Guzmán [place] [facility] [place] [facility] , [address] [place] [id number] 0 03/09 CBC w/ auto diff BA % % 0.0 2.0 0.6 FINAL Marlene Guzmán [place] [facility] [place] [facility] , [address] [place] [id number] 0 03/09 CBC w/ auto diff LY # K/uL 0.4 3.6 1.8 FINAL Marlene Guzmán [place] [facility] [place] [facility] , [address] [place] [id number] 0 03/09 CBC w/ auto diff MO # K/uL 0.2 1.3 0.4 FINAL Marlene Guzmán [place] [facility] [place] [facility] , [address] [place] [id number] 0 03/09 CBC w/ auto diff EO # K/uL 0.0 0.6 0.1 FINAL Marlene Guzmán [place] [facility] [place] [facility] , [address] [place] [id number] 0 03/09 CBC w/ auto diff BA # K/uL 0.0 0.2 0.0 FINAL Marlene Guzmán [place] [facility] [place] [facility] , [address] [place] [id number] 0 03/09 CBC w/ auto diff NRBC % #/100W BC 0.0 0.2 0.0 FINAL Marlene Guzmán [place] [facility] [place] [facility] , [address] [place] [id number] 0 03/09 CBC w/ auto diff RBC M/uL 3.9 5.1 5.08 FINAL Marlene Guzmán [place] [facility] [place] [facility] , [address] [place] [id number] 0 03/09 CBC w/ auto diff HCT % 35.0 48.0 42.9 FINAL Marlene Guzmán [facility] , [address] [place] [facility] [id number] 0 03/09 CBC w/ auto diff MCV fL 80.0 104.0 84.4 FINAL Marlene Guzmán [facility] , [address] [place] [facility] [id number] 0 03/09 CBC w/ auto diff MCH pg 26.0 35.0 28.3 FINAL Marlene Guzmán [facility] , [address] [facility] [id number] 0 03/09 CBC w/ auto diff MCHC g/dL 30.0 35.0 33.6 FINAL Marlene Guzmán [facility] , [address] [facility] [address] [facility] [address] [facility] [id number] 0 03/09 CBC w/ auto diff MPV fL 9.5 13.4 9.6 FINAL Marlene Guzmán [facility] , [address] [facility] [address] [facility] [id number] 0 03/09 CBC w/ auto diff RDW % 11.4 16.1 14.20 FINAL Marlene Guzmán [facility] , [address] [facility] [address] [facility] [id number] 0 03/09 Immun oglob ulin measu remen t IgG, quant mg/dL 610.0 1616.0 1080.49 Test performed at [facility] on a Binding Site Optilite Analyzer that uses a turbidime tric method for analysis. Patient testing should not be performed using multiple methodreal rocha due to analytica l variation seen between test methodreal rocha. FINAL Marlene Guzmán * [facility] , [address] [facility] [id number] 0 03/09 Immun oglob ulin measu remen t IgA, quant mg/dL 61.0 348.0 577.26 High Test performed at [facility] on a Binding Site Optilite Analyzer that uses a turbidime tric method for analysis. Patient testing should not be performed using multiple methodolo gies due to analytica l variation seen between test methodolo gies. FINAL Marlene Guzmán * [facility] , [facility] [address] [id number] 0 03/09 Immun oglob ulin measu remen t IgM, quant mg/dL 35.0 242.0 91.00 Test performed at [facility] on a Binding Site Optilite Analyzer that uses a turbidime tric method for analysis. Patient testing should not be performed using multiple methodolo gies due to analytica l variation seen between test methodolo gies. FINAL Marlene Guzmán * [facility] , [facility] [address] [id number] 0 03/09 Total prote in g/dL 6.3 8.2 7.1 FINAL Marlene Guzmán * [facility] , [facility] [address] [place] [address] [id number] 0 03/09 Album in, SPE g/dL 3.31 5.31 4.70 FINAL Marlene Guzmán * [facility] , [facility] [address] [place] [id number] 0 03/09 Alpha -1 globu tony g/dL 0.19 0.42 0.23 FINAL Marlene Guzmán * [facility] , [facility] [address] [place] [id number] 0 03/09 Alpha -2 globu tony g/dL 0.44 1.03 0.52 FINAL Marlene Guzmán * [facility] , [facility] [address] [place] [id number] 0 03/09 Beta globu tony g/dL 0.52 1.05 0.80 FINAL Marlene Guzmán * [facility] , [address] [facility] [address] [place] [id number] 0 03/09 Gamma globu tony g/dL 0.59 1.46 0.85 FINAL Marlene Guzmán * [facility] , [address] [facility] [address] [place] [id number] 0 03/09 Elect Gemma layton in Lab resul t note Previou sly identif ied parapro teins detecte d in gamma region. Is now 0.3 and 0.4 gm/dL. Interpr eted and signed by Luis Guillermo MD on 025 FINAL Marlene Guzmán * [facility] , [facility] [address] [place] [id number] 0 03/09 M-spi ke, SPE, g/dL g/dL 0.0 0.0 0.3 High FINAL Marlene Guzmán * [facility] , [address] [facility] [address] [place] [id number] 0 03/09 M-spi ke 2, SPE g/dL 0.0 0.0 0.4 High FINAL Marlene Guzmán * [facility] , [address] [facility] [address] [place] [id number] 0 04/03 Misc other lab See compliance attorney d Medications Date Name Route Dose Frequency [...] 70 04/10/2025 BMI 53.23 Notes Section * 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 History of Present Illness (Rn Liaison Oncology): 63 y.o.?? 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 Anxious, , female tearful??throughout visit. [...] record:05/23/2019 Last record:05/23/2019; ) Assessment & Plan (Rn Liaison Oncology): 63?? y.o. with abnormal uterine bleeding/PMB [...]
--- OUTSIDE RECORDS SUMMARY | 2025-07-06 23:14 | XMS_ITS ---
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 11/22 Color (ua) Yellow FINAL Hafsa Bud [facility] [place], [address] [facility] [address] [place] [phone] 0 Phone: () - 11/22 Appea ying (ua) Clear FINAL Hafsaanabel Rubi [facility] - [place], [address] [place] [address] [address] [place] [phone] 0 Phone: () - 11/22 Gluco se (ua), qual 500.0% Abnor mal FINAL Hafsaanabel [facility] - [place], [address] [place] [address] [address] [place] [phone] 0 Phone: () - 11/22 Bilir ubin (ua) Negativ e FINAL Hafsaanabel [facility] - [place], [address] [place] [address] [address] [place] [id number] 0 Phone: () - 11/22 Urina lysis , aceto ne or keton e chapo s measu remen t Negativ e FINAL H[facility]saanabel [facility] - [place], [address] [place] [address] [address] [place] [phone] 0 Phone: () - 11/22 Speci fic gravi ty (ua) 1.005 1.02 1.025% Abnor mal FINAL Hafsaanable [facility] - [place], [address] [place] [address] [address] [place] [phone] 0 Phone: () - 11/22 Blood (ua) Negativ e FINAL Hafsaanabel [facility] - [place], [address] [place] [address] [address] [place] [phone] 0 Phone: () - 11/22 pH (ua) 5.0 8.0 6.0% FINAL Hafsaanabel [facility] [place], [address] [place] [address] [address] [place] [phone] 0 Phone: () - 11/22 Prote in (ua) Negativ e FINAL Hafsaanabel [facility]i [facility] - [place], [address] [place] [address] 210 [place] [phone] 0 Phone: () - 11/22 Urobi linog en (ua) 0.2 1.0 0.2% FINAL [facility]afsaanabel [facility] [place], [address] [place] [address] 210 [facility] [phone] 0 Phone: () - 11/22 Nitri te (ua) Negativ e FINAL Hafsa Rubi a [facility], [address] [place] [address] 210 [facility] [phone] Phone: () - 11/22 Leuko cyte jerson ase (ua), qual Negativ e FINAL Hafsa Rubi [facility], [address] [place] [address] [phone] Phone: () - 11/22 UA comme nt 1 Dipstic k negativ e- Culture ordered per provide r FINAL Hafsa Rubi [facility], [address] [place] [address] [phone] Phone: () - 11/22 Urine cultu re panel CULTU RE, URINE , ROUTI NE SEE NOTE Abnor mal CULTURE, URINE, ROUTINEMi microfiche duplicator Number: [id number] est Status: FinalSpec imen Source: UrineSpec imen [...] f. FINAL Hafsaanabel Farrell [facility] [address] [facility] [id number] 4 12/18 [facility] other lab See d 04/18 Total prote in g/dL 6.3 8.2 6.9 FINAL Marlene Guzmán * [facility], [facility] [address] [place] [address] [id number] 0 04/18 Album in, SPE g/dL 3.31 5.31 3.97 FINAL Marlene Guzmán * [facility], [facility] [address] [place] [address] [id number] 0 04/18 Alpha -1 globu tony g/dL 0.19 0.42 0.26 FINAL Marlene Guzmán * [facility], [address] [id number] 0 04/18 Alpha -2 globu tony g/dL 0.44 1.03 0.63 FINAL Marlene Guzmán * [facility], [address] [id number] 0 04/18 Beta globu tony g/dL 0.52 1.05 0.95 FINAL Marlene Guzmán * [facility], [address] [id number] 0 04/18 Gamma globu tony g/dL 0.59 1.46 1.10 FINAL Marlene Guzmán * [facility], [facility]0 [facility] [address] [place] [address] [id number] 0 04/18 Elect abiola jackson Gemma in Lab resul t note Previou sly identif ied parapro teins detecte d in gamma region. Were 0.3 and 0.4 gm/dL, now 0.3 and 0.3 gm/dL. Interpr eted and signed by Adrienne Swanson MD on 024 FINAL Marlene Guzmán * [facility], [facility]0 [facility] [address] [place] [address] [id number] 0 04/18 M-spi ke, SPE, g/dL g/dL 0.0 0.0 0.3 High FINAL Marlene Guzmán * [facility], [address] [facility] [address] [id number] 0 04/18 M-spi ke 2, SPE g/dL 0.0 0.0 0.3 High FINAL Marlnee Guzmán * [facility], [facility]0 [facility] [address] [place] [address] [id number] 0 04/18 Immun oglob ulin measu remen t IgG, quant mg/dL 610.0 1616.0 946.67 Test performed at [facility] on a Binding Site Optilite Analyzer that uses a turbidime tric method for analysis. Patient testing should not be performed using multiple methodreal gikim due to analytica l variation seen between test methodreal rocha. FINAL Marlene Guzmán * [facility] [address] [place] [address] [id number] 0 04/18 Immun oglob ulin measu remen t IgA, quant mg/dL 61.0 348.0 493.08 High Test performed at [facility] on a Binding Site Optilite Analyzer that uses a turbidime tric method for analysis. Patient testing should not be performed using multiple methodolo gies due to analytica l variation seen between test methodolo gies. FINAL Marlene Stroud [facility] [address] [place] [address] [id number] 0 04/18 Immun oglob ulin measu remen t IgM, quant mg/dL 35.0 242.0 75.62 Test performed at [facility] on a Binding Site Optilite Analyzer that uses a turbidime tric method for analysis. Patient testing should not be performed using multiple methodolo gies due to analytica l variation seen between test methodolo gies. FINAL Marlene Stroud [facility] a [address] [place] [address] [id number] 0 04/18 Free kappa / lambd a with K/L ratio , serum Pinckard light chain , free, serum , mg/dL mg/dL 0.33 1.94 3.62 High Test performed at [facility] on a Binding Site Optilite Analyzer that uses a turbidime tric method for analysis. Patient testing should not be performed using multiple methodolo gies due to analytica l variation seen between test methodolo gies. FINAL Marlene Guzmán * Jann a [address] [place] [address] [id number] 0 04/18 Free kappa / lambd a with K/L ratio , serum Lambd a light chain , free, serum , mg/dL mg/dL 0.57 2.63 3.13 High Test performed at [facility] on a Binding Site Optilite Analyzer that uses a turbidime tric method for analysis. Patient testing should not be performed using multiple methodolo gies due to analytica l variation seen between test methodolo gies. FINAL Marlene Stroud [facility] [address] [place] [address] [id number] 0 04/18 Free kappa / lambd a with K/L ratio , serum K/L light chain ratio , free, serum 0.26 1.65 1.16% FINAL Marlene Guzmán * [facility] [place], [address] [facility] [place] [id number] 0 04/18 CBC w/ auto diff WBC K/uL 3.0 8.9 7.0 FINAL Marlene [facility] - [place], [address] [place] [id number] 0 Phone: () - 04/18 CBC w/ auto diff HGB g/dL 11.3 15.2 14.0 FINAL Marlene Rubi a [facility] - [place], [address] [place] [id number] 0 Phone: () - 04/18 CBC w/ auto diff PLT K/uL 113.0 364.0 164 FINAL Marlene Rubi a [facility] - [place], [address] [place] [id number] 0 Phone: () - 04/18 CBC w/ auto diff Tammy # (ANC) K/uL 1.6 6.6 4.5 FINAL Marlene pagan [facility] - [place], [address] [place] [id number] 0 Phone: () - 04/18 CBC w/ auto diff Tammy % % 43.0 74.0 64.0 FINAL Marlene [facility] - [place], [address] [place] [id number] 0 Phone: () - 04/18 CBC w/ auto diff IG % % 0.0 0.5 0.3 FINAL Marlene Rubi a [facility] - [place], [address] [place] [id number] 0 Phone: () - 04/18 CBC w/ auto diff IG # K/uL 0.0 0.03 0.02 FINAL Marlene Rubi a [facility] - [place], [address] [place] [id number] 0 Phone: () - 04/18 CBC w/ auto diff LY % % 14.0 41.0 28.2 FINAL Marlene [facility] - [place], [address] [place] [id number] 0 Phone: () - 04/18 CBC w/ auto diff MO % % 6.0 15.0 6.0 FINAL Marlene pagan [facility] - [place], [address] [place] [id number] 0 Phone: () - 04/18 CBC w/ auto diff EO % % 0.0 7.0 1.1 FINAL Marlene pagan [facility] - [place], [address] [place] [id number] 0 Phone: () - 04/18 CBC w/ auto diff BA % % 0.0 2.0 0.4 FINAL Marlene [facility] - [place], [address] [place] [id number] 0 Phone: () - 04/18 CBC w/ auto diff LY # K/uL 0.4 3.6 2.0 FINAL Marlene [facility] - [place], [address] [place] [id number] 0 Phone: () - 04/18 CBC w/ auto diff MO # K/uL 0.2 1.3 0.4 FINAL Marlene [facility] - [place], [address] [place] [id number] 0 Phone: () - 04/18 CBC w/ auto diff EO # K/uL 0.0 0.6 0.1 FINAL Marlene [facility] - [place], [address] [place] [id number] 0 Phone: () - 04/18 CBC w/ auto diff BA # K/uL 0.0 0.2 0.0 FINAL Marlene [facility] - [place], [address] [place] [id number] 0 Phone: () - 04/18 CBC w/ auto diff NRBC % #/100W BC 0.0 0.2 0.0 FINAL Marlene [facility] [place], [address] [place] [id number] 0 Phone: () - 04/18 CBC w/ auto diff RBC M/uL 3.9 5.1 4.84 FINAL Marlene [facility] [place], [address] [place] [id number] 0 Phone: () - 04/18 CBC w/ auto diff HCT % 35.0 48.0 40.4 FINAL Marlene Ramirez [facility] [place], [address] [place] [id number] 0 Phone: () - 04/18 CBC w/ auto diff MCV fL 80.0 104.0 83.5 FINAL Marlene Ramirez [facility] - [place], [address] [place] [id number] 0 Phone: () - 04/18 CBC w/ auto diff MCH pg 26.0 35.0 28.9 FINAL Marlene Guzmán [facility] [place], [address] [place] [id number] 0 Phone: () - 04/18 CBC w/ auto diff MCHC g/dL 30.0 35.0 34.7 FINAL Marlene Guzmán [facility] [place], [address] [place] [id number] 0 Phone: () - 04/18 CBC w/ auto diff MPV fL 9.5 13.4 9.7 FINAL Marlene Guzmán [facility] [place], [address] [place] [id number] 0 Phone: () - 04/18 CBC w/ auto diff RDW % 11.4 16.1 13.80 FINAL Marlene Guzmán [facility] [place], [address] [facility] [place] [id number] 0 Phone: ( 04/18 CMP Album in g/dL 3.5 5.0 4.0 FINAL Marlene Guzmán * [facility] [place], [address] [facility] [id number] 0 04/18 CMP Alkal ine phosp hatas e U/L 36.0 125.0 105 FINAL Marlene Guzmán * [facility], [address] [facility] [id number] 0 04/18 CMP ALT/S GPT U/L 0.0 34.0 35 High FINAL Marlene Guzmán * [facility], [address] [facility] [id number] 0 04/18 CMP AST/S GOT U/L 14.0 36.0 44 High FINAL Marlene Guzmán * [facility], [address] [facility] [id number] 0 04/18 CMP BUN mg/dL 7.0 17.0 21.0 High FINAL Marlene Guzmán * [facility], [address] [facility] [id number] 0 04/18 CMP Calci um mg/dL 8.4 10.2 8.8 FINAL Marlene Guzmán * [facility], [address] [facility] [id number] 0 04/18 CMP Chlor nilson mmol/L 96.0 107.0 106 FINAL Marlene Guzmán * [facility], [address] [facility] [id number] 0 04/18 CMP CO2 mmol/L 22.0 30.0 [...] 96 hour stability window. FINAL Marlene Stroud [facility], [facility] [address] [id number] 0 04/18 CMP Creat inine mg/dL 0.66 1.25 0.70 FINAL Marlene Guzmán * [facility], [address] [place] [address] [id number] 0 04/18 CMP GFR estim ate ml/min /1.73m ^2 97.7 GFR is calculate d using the CKD-EPI equation. FINAL Marlene Stroud [facility], [facility] [address] [id number] 0 04/18 CMP Gluco se mg/dL 74.0 100.0 267 High FINAL Marlene Stroud [facility], [facility] [address] [place] [address] [id number] 0 04/18 CMP Potas sium mmol/L 3.5 5.1 4.0 FINAL Marlene Stroud [facility], [facility] [address] [id number] 0 04/18 CMP Sodiu m mmol/L 137.0 145.0 136 Low FINAL Marlene Stroud [facility], [facility] [address] [id number] 0 04/18 CMP Bilir ubin, total mg/dL 0.2 1.3 1.0 FINAL Marlene Stroud 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 Patient testing should not be performed using multiple methodolo gies due to analytica l variation seen between test methodolo gies. FINAL Marlene Guzmán * [facility] , [address] [facility] [address] [id number] 0 03/09 Free kappa / lambd a with K/L ratio , serum Lambd a light chain , free, serum , mg/dL mg/dL 0.57 2.63 3.83 High Test performed at [facility] on a Binding Site Optilite Analyzer that uses a turbidime tric method for analysis. Patient testing should not be performed using multiple methodolo gies due to analytica l variation seen between test methodolo gies. FINAL Marlene Guzmán * [facility] , [address] [facility] [address] [id number] 0 03/09 Free kappa / lambd a with K/L ratio , serum K/L light chain ratio , free, serum 0.26 1.65 1.14% FINAL Marlene Guzmán * [facility] , [address] [facility] [address] [id number] 0 03/09 CMP Album in g/dL 3.5 5.0 3.8 FINAL Marlene Guzmán * [facility] , [address] [facility] [id number] 0 03/09 CMP Alkal ine phosp hatas e U/L 36.0 125.0 106 FINAL Marleneanabel Guzmán * [facility] , [address] [facility] [id number] 0 03/09 CMP ALT/S GPT U/L 0.0 34.0 37 High FINAL Marlene Guzmán * [facility] , [address] [facility] [id number] 0 03/09 CMP AST/S GOT U/L 14.0 36.0 36 FINAL Marlene Guzmán * [facility] , [address] [facility] [id number] 0 03/09 CMP BUN mg/dL 7.0 17.0 18.0 High FINAL Marlene Guzmán * [facility] , [address] [facility] [id number] 0 03/09 CMP Calci um mg/dL 8.4 10.2 8.9 FINAL Marleneanabel Guzmán * [facility] , [address] [facility] [id number] 0 03/09 CMP Chlor nilson mmol/L 96.0 107.0 99 FINAL Marleneanabel Guzmán * [facility] , [address] [facility] [id number] 0 03/09 CMP CO2 mmol/L 22.0 30.0 [...] hour stability window. FINAL Marleneanabel Guzmán * [facility] , [address] [facility] [address] [facility] [id number] 0 03/09 CMP Creat inine mg/dL 0.66 1.25 0.70 FINAL Marleneanabel Guzmán * [facility] , [address] [facility] [address] [facility] [id number] 0 03/09 CMP GFR estim ate ml/min /1.73m ^2 97.1 GFR is calculate d using the CKD-EPI equation. FINAL Marleneanabel Guzmán * [facility] , [address] [facility] [address] [facility] [address] [facility] [id number] 0 03/09 CMP Gluco se mg/dL 74.0 100.0 363 Criti sami High FINAL Marlene Guzmán * [facility] , [address] [facility] [address] [facility] [id number] 0 03/09 CMP Potas sium mmol/L 3.5 5.1 3.9 FINAL Marlene Ramirez * [facility] , [address] [address] [facility] [id number] 0 03/09 CMP Sodiu m mmol/L 137.0 145.0 134 Low FINAL Marleneanabel Guzmán * [facility] , [address] [facility] [address] [facility] [address] [facility] [id number] 0 03/09 CMP Bilir ubin, total mg/dL 0.2 1.3 1.1 FINAL Marleneanabel Guzmán * [facility] , [address] [facility] [address] [facility] [id number] 0 03/09 CMP Total prote in g/dL 6.3 8.2 7.3 FINAL Marlene Guzmán * [facility] , [address] [facility] [address] [facility] [id number] 0 03/09 CBC w/ auto diff WBC K/uL 3.0 8.9 7.1 FINAL Marlene Guzmán [place] [facility] [place] [facility] , [address] [place] [id number] 0 03/09 CBC w/ auto diff HGB g/dL 11.3 15.2 14.4 FINAL Marlene Guzmán [place] [facility] [place] [facility] , [address] [place] [id number] 0 03/09 CBC w/ auto diff PLT K/uL 113.0 364.0 179 FINAL Marlene Guzmán [place] [facility] [place] [facility] , [address] [place] [id number] 0 03/09 CBC w/ auto diff Tammy # (ANC) K/uL 1.6 6.6 4.7 FINAL Marlene Guzmán [facility] [place] [facility] , [address] [place] [id number] 0 03/09 CBC w/ auto diff Tammy % % 43.0 74.0 65.7 FINAL Marlene Guzmán [place] [facility] [place] [facility] , [address] [place] [id number] 0 03/09 CBC w/ auto diff IG % % 0.0 0.5 0.6 High FINAL Marlene Guzmán [place] [facility] [place] [facility] , [address] [place] [id number] 0 03/09 CBC w/ auto diff IG # K/uL 0.0 0.03 0.04 High FINAL Marlene Guzmán [place] [facility] [place] [facility] , [address] [place] [id number] 0 03/09 CBC w/ auto diff LY % % 14.0 41.0 25.8 FINAL Marlene Guzmán [place] [facility] [place] [facility] , [address] [place] [id number] 0 03/09 CBC w/ auto diff MO % % 6.0 15.0 6.2 FINAL Marlene Guzmán [place] [facility] [place] [facility] , [address] [place] [id number] 0 03/09 CBC w/ auto diff EO % % 0.0 7.0 1.1 FINAL Marlene Gzumán [place] [facility] [place] [facility] , [address] [place] [id number] 0 03/09 CBC w/ auto diff BA % % 0.0 2.0 0.6 FINAL Marlene Guzmán [place] [facility] [place] [facility] , [address] [place] [id number] 0 03/09 CBC w/ auto diff LY # K/uL 0.4 3.6 1.8 FINAL Marlene Guzmán [place] [facility] [place] [facility] , [address] [place] [id number] 0 03/09 CBC w/ auto diff MO # K/uL 0.2 1.3 0.4 FINAL Marlene Guzmán [place] [facility] [place] [facility] , [address] [place] [id number] 0 03/09 CBC w/ auto diff EO # K/uL 0.0 0.6 0.1 FINAL Marlene Guzmán [place] [facility] [place] [facility] , [address] [place] [id number] 0 03/09 CBC w/ auto diff BA # K/uL 0.0 0.2 0.0 FINAL Marlene Guzmán [place] [facility] [place] [facility] , [address] [place] [id number] 0 03/09 CBC w/ auto diff NRBC % #/100W BC 0.0 0.2 0.0 FINAL Marlene Guzmán [place] [facility] [place] [facility] , [address] [place] [id number] 0 03/09 CBC w/ auto diff RBC M/uL 3.9 5.1 5.08 FINAL Marlene Guzmán [place] [facility] [place] [facility] , [address] [place] [id number] 0 03/09 CBC w/ auto diff HCT % 35.0 48.0 42.9 FINAL Marlene Guzmán [facility] [place] [facility] , [address] [place] [id number] 0 03/09 CBC w/ auto diff MCV fL 80.0 104.0 84.4 FINAL Marlene Guzmán [facility] [place] [facility] , [address] [place] [id number] 0 03/09 CBC w/ auto diff MCH pg 26.0 35.0 28.3 FINAL Marlene Guzmán [facility] [place] [facility] , [address] [place] [id number] 0 03/09 CBC w/ auto diff MCHC g/dL 30.0 35.0 33.6 FINAL Marlene Guzmán [facility] [place] [facility] , [address] [place] [id number] 0 03/09 CBC w/ auto diff MPV fL 9.5 13.4 9.6 FINAL Marlene Guzmán [place] [facility] [place] [facility] , [address] [place] [id number] 0 03/09 CBC w/ auto diff RDW % 11.4 16.1 14.20 FINAL Marlene Guzmán [facility] , [address] [facility] [id number] 0 03/09 Total prote in g/dL 6.3 8.2 7.1 FINAL Marlene Guzmán * [facility] , [address] [facility] [address] [facility] [id number] 0 03/09 Album in, SPE g/dL 3.31 5.31 4.70 FINAL Marlene Guzmán * [facility] , [address] [facility] [address] [id number] 0 03/09 Alpha -1 globu tony g/dL 0.19 0.42 0.23 FINAL Marlene Guzmán * [facility] , [address] [facility] [address] [id number] 0 03/09 Alpha -2 globu tony g/dL 0.44 1.03 0.52 FINAL Marlene Guzmná * [facility] , [address] [address] [id number] 0 03/09 Beta globu tony g/dL 0.52 1.05 0.80 FINAL Marlene Guzmán * [facility] , [address] [address] [id number] 0 03/09 Gamma globu tony g/dL 0.59 1.46 0.85 FINAL Marlene Guzmán * [facility] , [address] [address] [id number] 0 03/09 Gemma Rodriguez in Lab resul t note Previou sly identif ied parapro teins detecte d in gamma region. Is now 0.3 and 0.4 gm/dL. Interpr eted and signed by Luis Guillermo MD on 025 FINAL Marlene Guzmán * [facility] , [address] [facility] [id number] 0 03/09 M-spi ke, SPE, g/dL g/dL 0.0 0.0 0.3 High FINAL Marlene Guzmán * [facility] , [address] [address] [facility] [id number] 0 03/09 M-spi ke 2, SPE g/dL 0.0 0.0 0.4 High FINAL Marlene Guzmán * [facility] , [address] [facility] [id number] 0 03/09 Immun oglob ulin measu remen t IgG, quant mg/dL 610.0 1616.0 1080.49 Test performed at [facility] on a Binding Site [employer]ilite Analyzer that uses a turbidime tric method for analysis. Patient testing should not be performed using multiple methodolo gies due to analytica l variation seen between test methodolo gies. FINAL Marlene Guzmán * [facility] , [address] [facility] [id number] 0 03/09 Immun oglob ulin measu remen t IgA, quant mg/dL 61.0 348.0 577.26 High Test performed at [facility] on a Binding Site [employer]ilite Analyzer that uses a turbidime tric method for analysis. Patient testing should not be performed using multiple methodolo gies due to analytica l variation seen between test methodolo gies. FINAL Marlene Guzmán * [facility] , [address] [facility] [id number] 0 03/09 Immun oglob ulin measu remen t IgM, quant mg/dL 35.0 242.0 91.00 Test performed at [facility] on a Binding Site [employer]il[employer] Analyzer that uses a turbidime tric method for analysis. Patient testing should not be performed using multiple methodolo gies due to analytica l variation seen between test methodolo josefina. FINAL Marlene Guzmán * [facility] , [address] [facility] [id number] 0 04/03 [facility] other lab See attache malave Medications Date [...] 04/10/2025 Body Temperature 97.50 Notes Section * BIOPSYCHOLOGIST Onc Consult Note (Amended) GYNECOLOGIC ONCOLOGY CONSULT Patient Name: VERO HENRY Patient : 1960 Patient Referring Physician: Malissa Hernandez MD (MEDICAL TRANSCRIPTION EDITOR) Primary GYNOncologist: Marlene Guzmán (Hematology/Oncology) Date of Service: 08/03/2023 Reason for Consult: I was asked by Dr. Malissa Hernandez to see Vero Henry in regard to a recent diagnosis of EIN/CAH. 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 * Presented with c/o [...] with myosure * Pathology:?? 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 Anxious, , female with somewhat [...] record:05/23/2019 Last record:05/23/2019; ) Assessment & Plan (Mortgage Processing Clerk Oncology): 63?? y.o. 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
--- OUTSIDE RECORDS SUMMARY | 2025-07-06 23:15 | XMS_ITS ---
Author Name Interface, [id number] lity Address [address] [facility] [address] [place] [address] [facility] Address [address] [facility] [address] [place] [address] Support Name Relationship Address Phone Greg Henry [...] Ordered By Specimen Source Lab Address 11/05 [facility] other lab See sensor technician d 11/08 Mis other lab See sensor technician d 11/22 Color (ua) Yellow FINAL [facility] [place], [address] [facility] [address] [place] [phone] 0 Phone: () - 11/22 Appea ying (ua) Clear FINAL [facility] [place], [address] [facility] [address] [place] [phone] 0 Phone: () - 11/22 Gluco se (ua), qual 500.0% Abnor mal FINAL [facility] [place], [address] [facility] [address] [place] [phone] 0 Phone: () - 11/22 Bilir ubin (ua) Negativ e FINAL [facility] [place], [address] [facility] [address] [place] [phone] 0 Phone: () - 11/22 Urina lysis , aceto ne or keton e chapo s measu remen t Negativ e FINAL [facility] [place], [address] [facility] [address] [place] [phone] 0 Phone: () - 11/22 Speci fic gravi ty (ua) 1.005 1.02 1.025% Abnor mal FINAL [facility] [place], [address] [facility] [address] [place] [phone] 0 Phone: () - 11/22 Blood (ua) Negativ e FINAL [facility] [place], [address] [facility] [address] [place] [phone] 0 Phone: () - 11/22 pH (ua) 5.0 8.0 6.0% FINAL [facility] [place], [address] [facility] [address] [place] [phone] 0 Phone: () - 11/22 Prote in (ua) Negativ e FINAL [facility] [place], [address] [place] [address] [address] [place] [phone] 0 Phone: () - 11/22 Urobi linog en (ua) 0.2 1.0 0.2% FINAL [facility] [place], [address] [place] [address] [address] [place] [phone] 0 Phone: () - 11/22 Nitri te (ua) Negativ e FINAL [facility] [place], [address] [facility] [address] [place] [phone] 0 Phone: () - 11/22 Leuko cyte jerson ase (ua), qual Negativ e FINAL [facility] [place], [address] [facility] [address] [place] [phone] 0 Phone: () - 11/22 UA comme nt 1 Dipstic k negativ e- Culture ordered per provide r FINAL [facility] [place] [facility] [place], [address] [facility] [address] [facility] [phone] 0 Phone: () - 11/22 Urine cultu re panel CULTU RE, URINE , ROUTI NE SEE NOTE Abnor mal 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 FINAL Hafsa Farrell [facility] [address] [facility] [id number] 4 12/18 [facility] other lab See sensor technician d 04/18 Total prote in g/dL 6.3 8.2 6.9 FINAL Marlene Ramirez * [facility], [address] [id number] 0 04/18 Album in, SPE g/dL 3.31 5.31 3.97 FINAL Marlene Guzmán * [facility], [address] [id number] 0 04/18 Alpha -1 globu tony g/dL 0.19 0.42 0.26 FINAL Marlene Guzmán * [facility], [address] [id number] 0 04/18 Alpha -2 globu tony g/dL 0.44 1.03 0.63 FINAL Marlene Guzmán * [facility], [address] [id number] 0 04/18 Beta globu tony g/dL 0.52 1.05 0.95 FINAL Marlene Ramirez * [facility], [address] [id number] 0 04/18 Gamma globu tony g/dL 0.59 1.46 1.10 FINAL Marlene Guzmán * [facility], [address] [id number] 0 04/18 Gemma Rodriguez in Lab resul t note Previou sly identif ied parapro teins detecte d in gamma region. Were 0.3 and 0.4 gm/dL, now 0.3 and 0.3 gm/dL. Interpr eted and signed by Adrienne Swanson MD on 024 FINAL Marlene Guzmán * [facility], [address] [facility] [address] [id number] 0 04/18 M-spi ke, SPE, g/dL g/dL 0.0 0.0 0.3 High FINAL Marlene Guzmán * [facility], [address] [facility] [address] [id number] 0 04/18 M-spi ke 2, SPE g/dL 0.0 0.0 0.3 High FINAL Marleneanabel Guzmán * [facility], [facility] [address] [place] [address] [id number] 04/18 Immun oglob ulin measu remen t IgG, quant mg/dL 610.0 1616.0 946.67 Test performed at [facility] on a Binding [employer] Optilite Analyzer that uses a turbidime tric method for analysis. Patient testing should not be performed using multiple methodolo gies due to analytica l variation seen between test methodolo gies. FINAL Marleneanabel Guzmán * [facility], [facility] [address] [place] [address] [id number] 0 04/18 Immun oglob ulin measu remen t IgA, quant mg/dL 61.0 348.0 493.08 High Test performed at [facility] on a Binding [employer] Optilite Analyzer that uses a turbidime tric method for analysis. Patient testing should not be performed using multiple methodolo gies due to analytica l variation seen between test methodolo gies. FINAL Marlene Guzmán * [facility], [address] [place] [address] [address] [place] [address] [id number] 0 04/18 Immun oglob ulin measu remen t IgM, quant mg/dL 35.0 242.0 75.62 Test performed at [facility] on a Binding [employer] Analyzer that uses a turbidime tric method for analysis. Patient testing should not be performed using multiple methodolo gies due to analytica l variation seen between test methodolo gies. FINAL Marlene Forte a [facility], [facility] [address] [id number] 0 04/18 Free kappa / lambd a with K/L ratio , serum [place] light chain , free, serum , mg/dL mg/dL 0.33 1.94 3.62 High Test performed at [facility] on a Binding Site Optil[employer] Analyzer that uses a turbidime tric method for analysis. Patient testing should not be performed using multiple methodolo gies due to analytica l variation seen between test methodolo gies. FINAL Marlene Rubi a [facility], [address] [facility] [address] [id number] 0 04/18 Free kappa / lambd a with K/L ratio , serum Lambd a light chain , free, serum , mg/dL mg/dL 0.57 2.63 3.13 High Test performed at [facility] on a Binding [employer] Opt[employer] Analyzer that uses a turbidime tric method for analysis. Patient testing should not be performed using multiple methodolo gies due to analytica l variation seen between test methodolo gies. FINAL Marlene Rubi a [facility], [address] [id number] 0 04/18 Free kappa / lambd a with K/L ratio , serum K/L light chain ratio , free, serum 0.26 1.65 1.16% FINAL Marlene Forteot a [facility], [address] [id number] 0 04/18 CBC w/ auto diff WBC K/uL 3.0 8.9 7.0 FINAL Marlene Rubi [facility], [address] [facility] [facility] [address] [facility] [id number] 0 Phone: () - 04/18 CBC w/ auto diff HGB g/dL 11.3 15.2 14.0 FINAL Marlene [facility] [place], [address] [place] [id number] 0 Phone: () - 04/18 CBC w/ auto diff PLT K/uL 113.0 364.0 164 FINAL Marlene [facility] [place], [address] [place] [id number] 0 Phone: () - 04/18 CBC w/ auto diff Tammy # (ANC) K/uL 1.6 6.6 4.5 FINAL Marlene [facility] - [place], [address] [place] [id number] 0 Phone: () - 04/18 CBC w/ auto diff Tammy % % 43.0 74.0 64.0 FINAL Marlene [facility] - [place], [address] [place] [id number] 0 Phone: () - 04/18 CBC w/ auto diff IG % % 0.0 0.5 0.3 FINAL Marlene [facility] - [place], [address] [place] [id number] 0 Phone: () - 04/18 CBC w/ auto diff IG # K/uL 0.0 0.03 0.02 FINAL Marlene [facility] - [place], [address] [place] [id number] 0 Phone: () - 04/18 CBC w/ auto diff LY % % 14.0 41.0 28.2 FINAL Marlene Rubi a [facility] - [place], [address] [place] [id number] 0 Phone: () - 04/18 CBC w/ auto diff MO % % 6.0 15.0 6.0 FINAL Marlene Guzmán [facility] - [place], [address] [place] [id number] 0 Phone: () - 04/18 CBC w/ auto diff EO % % 0.0 7.0 1.1 FINAL Marlene [facility] - [place], [address] [place] [id number] 0 Phone: () - 04/18 CBC w/ auto diff BA % % 0.0 2.0 0.4 FINAL Marlene [facility] - [place], [address] [place] [id number] 0 Phone: () - 04/18 CBC w/ auto diff LY # K/uL 0.4 3.6 2.0 FINAL Marlene Guzmán [facility] [place], [address] [place] [id number] 0 Phone: () - 04/18 CBC w/ auto diff MO # K/uL 0.2 1.3 0.4 FINAL Marlene Ramirez [facility] [place], [address] [place] [id number] 0 Phone: () - 04/18 CBC w/ auto diff EO # K/uL 0.0 0.6 0.1 FINAL Marlene Ramirez [facility] - [place], [address] [place] [id number] 0 Phone: () - 04/18 CBC w/ auto diff BA # K/uL 0.0 0.2 0.0 FINAL Marlene Ramirez [facility] - [place], [address] [place] [id number] 0 Phone: () - 04/18 CBC w/ auto diff NRBC % #/100W BC 0.0 0.2 0.0 FINAL Marlene Guzmán [facility] - [place], [address] [place] [id number] 0 Phone: () - 04/18 CBC w/ auto diff RBC M/uL 3.9 5.1 4.84 FINAL Marlene Guzmán [facility] - [place], [address] [place] [id number] 0 Phone: () - 04/18 CBC w/ auto diff HCT % 35.0 48.0 40.4 FINAL Marlene Rubi a [facility] - [place], [address] [place] [id number] 0 Phone: () - 04/18 CBC w/ auto diff MCV fL 80.0 104.0 83.5 FINAL Marlene [facility] - [place], [address] [place] [id number] 0 Phone: () - 04/18 CBC w/ auto diff MCH pg 26.0 35.0 28.9 FINAL Marlene Rubi a [facility] - [place], [address] [place] [id number] 0 Phone: () - 04/18 CBC w/ auto diff MCHC g/dL 30.0 35.0 34.7 FINAL Marlene Rubi a [facility] - [place], [address] [place] [id number] 0 Phone: () - 04/18 CBC w/ auto diff MPV fL 9.5 13.4 9.7 FINAL Marlene Rubi a [facility] - [place], [address] [place] [id number] 0 Phone: () - 04/18 CBC w/ auto diff RDW % 11.4 16.1 13.80 FINAL Marlene Rubi a [facility] - [place], [address] [place] [id number] 0 Phone: () - 04/18 CMP Album in g/dL 3.5 5.0 4.0 FINAL Marlene Guzmán * [facility] [place], [address] [place] [id number] 0 04/18 CMP Alkal ine phosp hatas e U/L 36.0 125.0 105 FINAL Marlene Guzmán * [facility] [place], [address] [facility] [id number] 0 04/18 CMP ALT/S GPT U/L 0.0 34.0 35 High FINAL Marelne Guzmán * [facility], [address] [facility] [id number] 0 04/18 CMP AST/S GOT U/L 14.0 36.0 44 High FINAL Marlene Guzmán * [facility], [address] [facility] [id number] 0 04/18 CMP BUN mg/dL 7.0 17.0 21.0 High FINAL Marlene Guzmán * [facility], [address] [facility] [id number] 0 04/18 CMP Calci um mg/dL 8.4 10.2 8.8 FINAL Marlene Guzmán * [facility], [address] [facility] [id number] 0 04/18 CMP Chlor nilson mmol/L 96.0 107.0 106 FINAL Marlene Guzmán * [facility], [address] [facility] [id number] 0 04/18 CMP CO2 mmol/L 22.0 30.0 [...] hour stability window. FINAL Marlene Guzmán * [facility], [address] [facility] [id number] 0 04/18 CMP Creat inine mg/dL 0.66 1.25 0.70 FINAL Marlene Guzmán * [facility], [address] [facility] [address] [id number] 0 04/18 CMP GFR estim ate ml/min /1.73m ^2 97.7 GFR is calculate d using the CKD-EPI equation. FINAL Marlene Stroud [facility], [address] [facility] [address] [id number] 0 04/18 CMP Gluco se mg/dL 74.0 100.0 267 High FINAL Marlene Guzmán * [facility], [facility] [address] [id number] 0 04/18 CMP Potas sium mmol/L 3.5 5.1 4.0 FINAL Marlene Guzmán * [facility], [address] [facility] [address] [id number] 0 04/18 CMP Sodiu m mmol/L 137.0 145.0 136 Low FINAL Marlene Guzmán * [facility], [address] [facility] [address] [id number] 0 04/18 CMP Bilir ubin, total mg/dL 0.2 1.3 1.0 FINAL Marlene Guzmán * [facility], [address] [facility] [address] [id number] 0 04/18 CMP Total prote in g/dL 6.3 8.2 7.3 FINAL Marlene Guzmán * [facility], [address] [facility] [address] [id number] 0 04/18 [facility] other lab See sensor technician d 12/20 Mis other lab See sensor technician d 12/20 [facility] other lab See sensor technician d 03/09 Free kappa / lambd a with K/L ratio , serum [place] light chain , free, serum , mg/dL mg/dL 0.33 1.94 4.35 High Test performed at [facility] on a Binding [employer] Analyzer that uses a turbidime tric method for analysis. Patient testing should not be performed using multiple methodolo gies due to analytica l variation seen between test methodolo gies. FINAL Marlene Guzmán * [facility] , [address] [facility] [address] [facility] [id number] 0 03/09 Free kappa / lambd a with K/L ratio , serum Lambd a light chain , free, serum , mg/dL mg/dL 0.57 2.63 3.83 High Test performed at [facility] on a Binding Site [employer] Analyzer that uses a turbidime tric method for analysis. Patient testing should not be performed using multiple methodolo gies due to analytica l variation seen between test methodolo gies. FINAL Marlene Guzmán * [facility] , [address] [facility] [address] [id number] 0 03/09 Free kappa / lambd a with K/L ratio , serum K/L light chain ratio , free, serum 0.26 1.65 1.14% FINAL Marlene Guzmán * [facility] , [address] [facility] [address] [id number] 0 03/09 CMP Album in g/dL 3.5 5.0 3.8 FINAL Marlene Guzmán * [facility] , [address] [facility] [address] [id number] 0 03/09 CMP Alkal ine phosp hatas e U/L 36.0 125.0 106 FINAL Marlene Guzmán * [facility] , [address] [facility] [address] [facility] [id number] 0 03/09 CMP ALT/S GPT U/L 0.0 34.0 37 High FINAL Marlene Guzmán * [facility] , [address] [facility] [id number] 0 03/09 CMP AST/S GOT U/L 14.0 36.0 36 FINAL Marlene Guzmán * [facility] , [address] [facility] [id number] 0 03/09 CMP BUN mg/dL 7.0 17.0 18.0 High FINAL Marlene Guzmán * [facility] , [address] [facility] [id number] 0 03/09 CMP Calci um mg/dL 8.4 10.2 8.9 FINAL Marlene Guzmán * [facility] , [address] [facility] [id number] 0 03/09 CMP Chlor nilson mmol/L 96.0 107.0 99 FINAL Marlene Guzmán * [facility] , [address] [facility] [id number] 0 03/09 CMP CO2 mmol/L 22.0 30.0 [...] hour stability window. FINAL Marleneanabel Guzmán * [facility] , [address] [facility] [id number] 0 03/09 CMP Creat inine mg/dL 0.66 1.25 0.70 FINAL Marlene Guzmán * [facility] , [address] [facility] [id number] 0 03/09 CMP GFR estim ate ml/min /1.73m ^2 97.1 GFR is calculate d using the CKD-EPI equation. FINAL Marlene Ramirez * [facility] , [address] [facility] [id number] 0 03/09 CMP Gluco se mg/dL 74.0 100.0 363 Criti sami High FINAL Marlene Ramirez * [facility] , [address] [facility] [id number] 0 03/09 CMP Potas sium mmol/L 3.5 5.1 3.9 FINAL Marlene Ramirez * [facility] , [address] [facility] [id number] 0 03/09 CMP Sodiu m mmol/L 137.0 145.0 134 Low FINAL Marlene Ramirez * [facility] , [address] [facility] [id number] 0 03/09 CMP Bilir ubin, total mg/dL 0.2 1.3 1.1 FINAL Marlene Ramirez * [facility] , [address] [facility] [id number] 0 03/09 CMP Total prote in g/dL 6.3 8.2 7.3 FINAL Marlene Guzmán * [facility] , [address] [facility] [id number] 0 03/09 CBC w/ auto diff WBC K/uL 3.0 8.9 7.1 FINAL Marlene Guzmán [place] [facility] [place] [facility] , [address] [place] [id number] 0 03/09 CBC w/ auto diff HGB g/dL 11.3 15.2 14.4 FINAL Marlene Guzmán [place] [facility] [place] [facility] , [address] [place] [id number] 0 03/09 CBC w/ auto diff PLT K/uL 113.0 364.0 179 FINAL Marlene Guzmán [place] [facility] , [address] [place] [id number] 0 03/09 CBC w/ auto diff Tammy # (ANC) K/uL 1.6 6.6 4.7 FINAL Marlene Guzmán [place] [facility] [place] [facility] , [address] [place] [id number] 0 03/09 CBC w/ auto diff Tammy % % 43.0 74.0 65.7 FINAL Marlene Guzmán [place] [facility] [place] [facility] , [address] [place] [id number] 0 03/09 CBC w/ auto diff IG % % 0.0 0.5 0.6 High FINAL Marlene Guzmán [place] [facility] , [address] [place] [id number] 0 03/09 CBC w/ auto diff IG # K/uL 0.0 0.03 0.04 High FINAL Marlene Guzmán [place] [facility] [place] [facility] , [address] [place] [id number] 0 03/09 CBC w/ auto diff LY % % 14.0 41.0 25.8 FINAL Marlene Guzmán [place] [facility] [place] [facility] , [address] [place] [id number] 0 03/09 CBC w/ auto diff MO % % 6.0 15.0 6.2 FINAL Marlene Guzmán [place] [facility] [place] [facility] , [address] [place] [id number] 0 03/09 CBC w/ auto diff EO % % 0.0 7.0 1.1 FINAL Marlene Guzmán [place] [facility] [place] [facility] , [address] [place] [id number] 0 03/09 CBC w/ auto diff BA % % 0.0 2.0 0.6 FINAL Marlene Guzmán [place] [facility] [place] [facility] , [address] [place] [id number] 0 03/09 CBC w/ auto diff LY # K/uL 0.4 3.6 1.8 FINAL Marlene Guzmán [place] [facility] [place] [facility] , [address] [place] [id number] 0 03/09 CBC w/ auto diff MO # K/uL 0.2 1.3 0.4 FINAL Marlene Guzmán [place] [facility] [place] [facility] , [address] [place] [id number] 0 03/09 CBC w/ auto diff EO # K/uL 0.0 0.6 0.1 FINAL Marlene Guzmán [place] [facility] , [address] [place] [id number] 0 03/09 CBC w/ auto diff BA # K/uL 0.0 0.2 0.0 FINAL Marlene Guzmán [place] [facility] , [address] [place] [id number] 0 03/09 CBC w/ auto diff NRBC % #/100W BC 0.0 0.2 0.0 FINAL Marlene Guzmán [place] [facility] , [address] [place] [id number] 0 03/09 CBC w/ auto diff RBC M/uL 3.9 5.1 5.08 FINAL Marlene Guzmán [place] [facility] , [address] [place] [id number] 0 03/09 CBC w/ auto diff HCT % 35.0 48.0 42.9 FINAL Marlene Guzmán [place] [facility] , [address] [place] [id number] 0 03/09 CBC w/ auto diff MCV fL 80.0 104.0 84.4 FINAL Marlene Guzmán [place] [facility] , [address] [place] [id number] 0 03/09 CBC w/ auto diff MCH pg 26.0 35.0 28.3 FINAL Marlene Guzmán [place] [facility] , [address] [place] [id number] 0 03/09 CBC w/ auto diff MCHC g/dL 30.0 35.0 33.6 FINAL Marlene Guzmán [place] [facility] , [address] [place] [id number] 0 03/09 CBC w/ auto diff MPV fL 9.5 13.4 9.6 FINAL Marlene Guzmán [place] [facility] , [address] [place] [id number] 0 03/09 CBC w/ auto diff RDW % 11.4 16.1 14.20 FINAL Marlene Guzmán [place] [facility] , [address] [place] [id number] 0 03/09 Total prote in g/dL 6.3 8.2 7.1 FINAL Marlene Guzmán * [place] [facility] [place] [facility] , [address] [place] [id number] 0 03/09 Album in, SPE g/dL 3.31 5.31 4.70 FINAL Marlene Guzmán * [facility] , [address] [facility] [address] [id number] 0 03/09 Alpha -1 globu tony g/dL 0.19 0.42 0.23 FINAL Marlene Guzmán * [facility] , [address] [facility] [address] [facility] [id number] 0 03/09 Alpha -2 globu tony g/dL 0.44 1.03 0.52 FINAL Marlene Guzmán * [facility] , [address] [facility] [address] [id number] 0 03/09 Beta globu tony g/dL 0.52 1.05 0.80 FINAL Marlene Guzmán * [facility] , [address] [facility] [address] [id number] 0 03/09 Gamma globu tony g/dL 0.59 1.46 0.85 FINAL Marlene Guzmán * [facility] , [address] [facility] [address] [id number] 0 03/09 Elect Gemma layton in Lab resul t note Previou sly identif ied parapro teins detecte d in gamma region. Is now 0.3 and 0.4 gm/dL. Interpr eted and signed by Luis Guillermo MD on 025 FINAL Marlene Guzmán * [facility] , [address] [address] [facility] [id number] 0 03/09 M-spi ke, SPE, g/dL g/dL 0.0 0.0 0.3 High FINAL Marlene Guzmán * [facility] , [address] [facility] [address] [id number] 0 03/09 M-spi ke 2, SPE g/dL 0.0 0.0 0.4 High FINAL Marlene Guzmán * [facility] , [address] [facility] [id number] 0 03/09 Immun oglob ulin measu remen t IgG, quant mg/dL 610.0 1616.0 1080.49 Test performed at [facility] on a Binding Site Optilite Analyzer that uses a turbidime tric method for analysis. Patient testing should not be performed using multiple methodolo gies due to analytica l variation seen between test methodolo gies. FINAL Marlene Ramirez * [facility] , [address] [facility] [id number] 0 03/09 Immun oglob ulin measu remen t IgA, quant mg/dL 61.0 348.0 577.26 High Test performed at [facility] on a Binding Site Optilite Analyzer that uses a turbidime tric method for analysis. Patient testing should not be performed using multiple methodolo gies due to analytica l variation seen between test methodolo gies. FINAL Marlene Ramirez * [facility] , [address] [facility] [id number] 0 03/09 Immun oglob ulin measu remen t IgM, quant mg/dL 35.0 242.0 91.00 Test performed at [facility] on a Binding Site Optilite Analyzer that uses a turbidime tric method for analysis. Patient testing should not be performed using multiple methodolo gies due to analytica l variation seen between test methodolo gies. 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 History of Present Illness (Management Associate Oncology): 63 y.o.?? 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 Genetic Testing (Management Associate Oncology): Interval History (Management Associate Oncology) She was transferred from [facility] to [facility] after surgery from 09/03-09/09/23.?? 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 Anxious, , female with somewhat [...] record:05/23/2019 Last record:05/23/2019; ) Assessment & Plan (Management Associate Oncology): 63?? y.o. 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 Pathology benign. Reviewedpathology, operative findings, expected recovery.?? She is recovering well, no further restrictions.?? She can follow up with PCP/supply chain project manager as needed.? Pain Care Management: Pain Scale: [...] Electronically signed by Judy RAJPUT 10/11/2023 15:27 BEHAVIORAL THERAPIST
--- OUTSIDE RECORDS SUMMARY | 2025-07-06 23:16 | XMS_ITS ---
Author Name Interface, [id number] lity Address [address] [facility] [address] [place] [address] [facility] Oncology Address [address] [facility] [address] [place] [address] Support Name Relationship Address Phone Greg Henry [...] Ordered By Specimen Source Lab Address 11/05 [facility] [place] See automatic thread winder d 11/08 Mis other lab See automatic thread winder d 11/22 Color (ua) Yellow FINAL [facility] [place], [address] [facility] [address] [place] [phone] Phone: () - 11/22 Appea ying (ua) Clear FINAL [facility] [place], [address] [facility] [address] [place] [phone] 0 Phone: () - 11/22 Gluco se (ua), qual 500.0% Abnor mal FINAL [facility] [place], [address] [facility] [address] [place] [phone] 0 Phone: () - 11/22 Bilir ubin (ua) Negativ e FINAL [facility] [place], [address] [facility] [address] [place] [phone] 0 Phone: () - 11/22 Urina lysis , aceto ne or keton e chapo s measu remen t Negativ e FINAL [facility] [place], [address] [facility] [address] [place] [phone] 0 Phone: () - 11/22 Speci fic gravi ty (ua) 1.005 1.02 1.025% Abnor mal FINAL [facility] [place], [address] [facility] [address] [place] [phone] 0 Phone: () - 11/22 Blood (ua) Negativ e FINAL [facility] [place], [address] [facility] [address] [place] [id number] 0 Phone: () - 11/22 pH (ua) 5.0 8.0 6.0% FINAL [facility] [place], [address] [facility] [address] [place] [id number] 0 Phone: () - 11/22 Prote in (ua) Negativ e FINAL [facility] [place], [address] [place] [address] [address] [place] [id number] 0 Phone: () - 11/22 Urobi linog en (ua) 0.2 1.0 0.2% FINAL [facility] [place], [address] [place] [address] [address] [place] [phone] 0 Phone: () - 11/22 Nitri te (ua) Negativ e FINAL [facility] [place], [address] [facility] [address] [place] [id number] 0 Phone: () - 11/22 Leuko cyte jerson ase (ua), qual Negativ e FINAL [facility] [place], [address] [facility] [address] [place] [phone] 0 Phone: () - 11/22 UA comme nt 1 Dipstic k negativ e- Culture ordered per provide r FINAL [facility] [place] [facility] [place], [address] [facility] [address] [facility] [phone] 0 Phone: () - 11/22 Urine cultu re panel CULTU RE, URINE , ROUTI NE SEE NOTE Abnor mal CULTURE, 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 FINAL Hafsa Farrell [facility] [address] [facility] [id number] 4 12/18 [facility] [place] See automatic thread winder d 04/18 Total prote in g/dL 6.3 8.2 6.9 FINAL Marlene Ramirez * [facility], [address] [id number] 0 04/18 Album in, SPE g/dL 3.31 5.31 3.97 FINAL Marlene Guzmán * [facility], [address] [id number] 0 04/18 Alpha -1 globu tony g/dL 0.19 0.42 0.26 FINAL Marlene Guzmán * [facility], [address] [id number] 0 04/18 Alpha -2 globu tony g/dL 0.44 1.03 0.63 FINAL Marlene Guzmán * [facility], [address] [id number] 0 04/18 Beta globu tony g/dL 0.52 1.05 0.95 FINAL Marlene Ramirez * [facility], [address] [id number] 0 04/18 Gamma globu tony g/dL 0.59 1.46 1.10 FINAL Marlene Guzmán * [facility], [address] [id number] 0 04/18 Gemma Rodriguez in Lab resul t note Previou sly identif ied parapro teins detecte d in gamma region. Were 0.3 and 0.4 gm/dL, now 0.3 and 0.3 gm/dL. Interpr eted and signed by Adrienne Swanson MD on 024 FINAL Marlene Guzmán * [facility], [address] [facility] [address] [id number] 0 04/18 M-spi ke, SPE, g/dL g/dL 0.0 0.0 0.3 High FINAL Marlene Guzmán * [facility], [address] [facility] [address] [id number] 0 04/18 M-spi ke 2, SPE g/dL 0.0 0.0 0.3 High FINAL Marleneanabel Guzmán * [facility], [facility] [address] [place] [address] [id number] 0 04/18 Immun oglob ulin measu remen t IgG, quant mg/dL 610.0 1616.0 946.67 Test performed at [facility] on a Binding [employer] Optilite Analyzer that uses a turbidime tric method for analysis. Patient testing should not be performed using multiple methodolo gies due to analytica l variation seen between test methodolo gies. FINAL Marleneanabel Guzmán * [facility] [address] [place] [address] [id number] 0 04/18 Immun oglob ulin measu remen t IgA, quant mg/dL 61.0 348.0 493.08 High Test performed at [facility] on a Binding [employer] Optilite Analyzer that uses a turbidime tric method for analysis. Patient testing should not be performed using multiple methodolo gies due to analytica l variation seen between test methodolo gies. FINAL Marlene Guzmán * [facility] Oncology [facility], [address] [place] [address] [place] [address] [id number] 0 04/18 Immun oglob ulin measu remen t IgM, quant mg/dL 35.0 242.0 75.62 Test performed at [facility] on a Binding Site Optilite Analyzer that uses a turbidime tric method for analysis. Patient testing should not be performed using multiple methodolo gies due to analytica l variation seen between test methodolo gies. FINAL Marlene Forte a [facility], [facility] [address] [id number] 0 04/18 Free kappa / lambd a with K/L ratio , serum Burgess light chain , free, serum , mg/dL mg/dL 0.33 1.94 3.62 High Test performed at [facility] on a Binding Site Optilite Analyzer that uses a turbidime tric method for analysis. Patient testing should not be performed using multiple methodolo gies due to analytica l variation seen between test methodolo gies. FINAL Marlene Rubi a [facility], [address] [facility] [address] [id number] 0 04/18 Free kappa / lambd a with K/L ratio , serum Lambd a light chain , free, serum , mg/dL mg/dL 0.57 2.63 3.13 High Test performed at [facility] on a Binding [employer] Optilite Analyzer that uses a turbidime tric method for analysis. Patient testing should not be performed using multiple methodolo gies due to analytica l variation seen between test methodolo gies. FINAL Marlene Rubi a [facility], [address] [id number] 0 04/18 Free kappa / lambd a with K/L ratio , serum K/L light chain ratio , free, serum 0.26 1.65 1.16% FINAL Marlene [facility] a [facility], [address] [id number] 0 04/18 CBC w/ auto diff WBC K/uL 3.0 8.9 7.0 FINAL Marlene Rubi On[facility], [address] [facility] [facility] [address] [facility] [id number] 0 Phone: () - 04/18 CBC w/ auto diff HGB g/dL 11.3 15.2 14.0 FINAL Marlene [facility] [place], [address] [place] [id number] 0 Phone: () - 04/18 CBC w/ auto diff PLT K/uL 113.0 364.0 164 FINAL Marlene [facility] - [place], [address] [place] [id number] 0 Phone: () - 04/18 CBC w/ auto diff Tammy # (ANC) K/uL 1.6 6.6 4.5 FINAL Marlene [facility] - [place], [address] [place] [id number] 0 Phone: () - 04/18 CBC w/ auto diff Tammy % % 43.0 74.0 64.0 FINAL Marlene [facility] - [place], [address] [place] [id number] 0 Phone: () - 04/18 CBC w/ auto diff IG % % 0.0 0.5 0.3 FINAL Marlene [facility] - [place], [address] [place] [id number] 0 Phone: () - 04/18 CBC w/ auto diff IG # K/uL 0.0 0.03 0.02 FINAL Marlene [facility] - [place], [address] [place] [id number] 0 Phone: () - 04/18 CBC w/ auto diff LY % % 14.0 41.0 28.2 FINAL Marlene Rubi a [facility] - [place], [address] [place] [id number] 0 Phone: () - 04/18 CBC w/ auto diff MO % % 6.0 15.0 6.0 FINAL Marlene Guzmán [facility] - [place], [address] [place] [id number] 0 Phone: () - 04/18 CBC w/ auto diff EO % % 0.0 7.0 1.1 FINAL Marlene [facility] - [place], [address] [place] [id number] 0 Phone: () - 04/18 CBC w/ auto diff BA % % 0.0 2.0 0.4 FINAL Mar[facility] - [place], [address] [place] [id number] 0 Phone: () - 04/18 CBC w/ auto diff LY # K/uL 0.4 3.6 2.0 FINAL Marlene Guzmán [facility] - [place], [address] [place] [id number] 0 Phone: () - 04/18 CBC w/ auto diff MO # K/uL 0.2 1.3 0.4 FINAL Marlene Ramirez [facility] [place], [address] [place] [id number] 0 Phone: () - 04/18 CBC w/ auto diff EO # K/uL 0.0 0.6 0.1 FINAL Marlene Ramirez [facility] - [place], [address] [place] [id number] 0 Phone: () - 04/18 CBC w/ auto diff BA # K/uL 0.0 0.2 0.0 FINAL Marlene Ramirez [facility] - [place], [address] [place] [id number] 0 Phone: () - 04/18 CBC w/ auto diff NRBC % #/100W BC 0.0 0.2 0.0 FINAL Marlene Guzmán [facility] - [place], [address] [place] [id number] 0 Phone: () - 04/18 CBC w/ auto diff RBC M/uL 3.9 5.1 4.84 FINAL Marlene Guzmán [facility] - [place], [address] [place] [id number] 0 Phone: () - 04/18 CBC w/ auto diff HCT % 35.0 48.0 40.4 FINAL Marlene Rubi a [facility] - [place], [address] [place] [id number] 0 Phone: () - 04/18 CBC w/ auto diff MCV fL 80.0 104.0 83.5 FINAL Marlene [facility] - [place], [address] [place] [id number] 0 Phone: () - 04/18 CBC w/ auto diff MCH pg 26.0 35.0 28.9 FINAL Marlene Rubi a [facility] - [place], [address] [place] [id number] 0 Phone: () - 04/18 CBC w/ auto diff MCHC g/dL 30.0 35.0 34.7 FINAL Marlene Rubi a [facility] - [place], [address] [place] [id number] 0 Phone: () - 04/18 CBC w/ auto diff MPV fL 9.5 13.4 9.7 FINAL Marlene Rubi a [facility] - [place], [address] [place] [id number] 0 Phone: () - 04/18 CBC w/ auto diff RDW % 11.4 16.1 13.80 FINAL Marlene Rubi a [facility] - [place], [address] [place] [id number] 0 Phone: () - 04/18 CMP Album in g/dL 3.5 5.0 4.0 FINAL Marlene Guzmán * [facility] [place], [address] [place] [id number] 0 04/18 CMP Alkal ine phosp hatas e U/L 36.0 125.0 105 FINAL Marlene Guzmán * [facility] [place], [address] [facility] [id number] 0 04/18 CMP ALT/S GPT U/L 0.0 34.0 35 High FINAL Marlene Guzmán * [facility], [address] [facility] [id number] 0 04/18 CMP AST/S GOT U/L 14.0 36.0 44 High FINAL Marlene Guzmán * [facility], [address] [facility] [id number] 0 04/18 CMP BUN mg/dL 7.0 17.0 21.0 High FINAL Marlene Guzmán * [facility], [address] [facility] [id number] 0 04/18 CMP Calci um mg/dL 8.4 10.2 8.8 FINAL Marlene Guzmán * [facility], [address] [facility] [id number] 0 04/18 CMP Chlor nilson mmol/L 96.0 107.0 106 FINAL Marlene Guzmán * [facility], [address] [facility] [id number] 0 04/18 CMP CO2 mmol/L 22.0 30.0 [...] stability window. FINAL Marlene Guzmán * [facility] Oncology [facility], [address] [facility] [id number] 0 04/18 CMP Creat inine mg/dL 0.66 1.25 0.70 FINAL Marlene Guzmán * [facility], [address] [facility] [address] [id number] 0 04/18 CMP GFR estim ate ml/min /1.73m ^2 97.7 GFR is calculate d using the CKD-EPI equation. FINAL Marlene Stroud [facility], [address] [facility] [address] [id number] 0 04/18 CMP Gluco se mg/dL 74.0 100.0 267 High FINAL Marlene Guzmán * [facility] [address] [id number] 0 04/18 CMP Potas sium mmol/L 3.5 5.1 4.0 FINAL Marlene Guzmán * [facility], [address] [facility] [address] [id number] 0 04/18 CMP Sodiu m mmol/L 137.0 145.0 136 Low FINAL Marlene Guzmán * [facility], [address] [facility] [address] [id number] 0 04/18 CMP Bilir ubin, total mg/dL 0.2 1.3 1.0 FINAL Marlene Guzmán * [facility], [address] [facility] [address] [id number] 0 04/18 CMP Total prote in g/dL 6.3 8.2 7.3 FINAL Marlene Guzmán * [facility], [address] [facility] [facility] [address] [id number] 0 04/18 [facility] [place] See automatic thread winder d 12/20 Mis other lab See automatic thread winder d 12/20 [facility] [place] lab See automatic thread winder d 03/09 Free kappa / lambd a with K/L ratio , serum Burgess light chain , free, serum , mg/dL mg/dL 0.33 1.94 4.35 High Test performed at [facility] on a Binding Site Optilite Analyzer that uses a turbidime tric method for analysis. Patient testing should not be performed using multiple methodolo gies due to analytica l variation seen between test methodolo gies. FINAL Marlene Guzmán * [facility] , [address] [facility] [address] [facility] [id number] 0 03/09 Free kappa / lambd a with K/L ratio , serum Lambd a light chain , free, serum , mg/dL mg/dL 0.57 2.63 3.83 High Test performed at [facility] on a Binding Site Optilite Analyzer that uses a turbidime tric method for analysis. Patient testing should not be performed using multiple methodolo gies due to analytica l variation seen between test methodolo gies. FINAL Marlene Guzmán * [facility] , [address] [facility] [address] [id number] 0 03/09 Free kappa / lambd a with K/L ratio , serum K/L light chain ratio , free, serum 0.26 1.65 1.14% FINAL Marlene Guzmán * [facility] , [address] [facility] [address] [id number] 0 03/09 CMP Album in g/dL 3.5 5.0 3.8 FINAL Marlene Guzmán * [facility] , [address] [facility] [address] [id number] 0 03/09 CMP Alkal ine phosp hatas e U/L 36.0 125.0 106 FINAL Marlene Guzmán * [facility] , [address] [facility] [address] [facility] [id number] 0 03/09 CMP ALT/S GPT U/L 0.0 34.0 37 High FINAL Marlene Guzmán * [facility] , [address] [facility] [id number] 0 03/09 CMP AST/S GOT U/L 14.0 36.0 36 FINAL Marlene Guzmán * [facility] , [address] [facility] [id number] 0 03/09 CMP BUN mg/dL 7.0 17.0 18.0 High FINAL Marlene Guzmán * [facility] , [address] [facility] [id number] 0 03/09 CMP Calci um mg/dL 8.4 10.2 8.9 FINAL Marlene Guzmán * [facility] , [address] [facility] [id number] 0 03/09 CMP Chlor nilson mmol/L 96.0 107.0 99 FINAL Marlene Guzmán * [facility] , [address] [facility] [id number] 0 03/09 CMP CO2 mmol/L 22.0 30.0 [...] hour stability window. FINAL Marleneanabel Guzmán * [facility] , [address] [facility] [id number] 0 03/09 CMP Creat inine mg/dL 0.66 1.25 0.70 FINAL Marlene Guzmán * [facility] , [address] [facility] [id number] 0 03/09 CMP GFR estim ate ml/min /1.73m ^2 97.1 GFR is calculate d using the CKD-EPI equation. FINAL Marlene Ramirez * [facility] , [address] [facility] [id number] 0 03/09 CMP Gluco se mg/dL 74.0 100.0 363 Criti sami High FINAL Marlene Ramirez * [facility] , [address] [facility] [id number] 0 03/09 CMP Potas sium mmol/L 3.5 5.1 3.9 FINAL Marlene Ramirez * [facility] , [address] [facility] [id number] 0 03/09 CMP Sodiu m mmol/L 137.0 145.0 134 Low FINAL Marlene Ramirez * [facility] , [address] [facility] [id number] 0 03/09 CMP Bilir ubin, total mg/dL 0.2 1.3 1.1 FINAL Marlene Ramirez * [facility] , [address] [facility] [id number] 0 03/09 CMP Total prote in g/dL 6.3 8.2 7.3 FINAL Marlene Guzmán * [facility] , [address] [facility] [id number] 0 03/09 CBC w/ auto diff WBC K/uL 3.0 8.9 7.1 FINAL Marlene Guzmán [place] [facility] [place] [facility] , [address] [place] [id number] 0 03/09 CBC w/ auto diff HGB g/dL 11.3 15.2 14.4 FINAL Marlene Guzmán [place] [facility] [place] [facility] , [address] [place] [id number] 0 03/09 CBC w/ auto diff PLT K/uL 113.0 364.0 179 FINAL Marlene Guzmán [place] [facility] [place] [facility] , [address] [place] [id number] 0 03/09 CBC w/ auto diff Tammy # (ANC) K/uL 1.6 6.6 4.7 FINAL Marlene Guzmán [place] [facility] [place] [facility] , [address] [place] [id number] 0 03/09 CBC w/ auto diff Tammy % % 43.0 74.0 65.7 FINAL Marlene Guzmán [place] [facility] [place] [facility] , [address] [place] [id number] 0 03/09 CBC w/ auto diff IG % % 0.0 0.5 0.6 High FINAL Marlene Guzmán [place] [facility] , [address] [place] [id number] 0 03/09 CBC w/ auto diff IG # K/uL 0.0 0.03 0.04 High FINAL Marlene Guzmán [place] [facility] [place] [facility] , [address] [place] [id number] 0 03/09 CBC w/ auto diff LY % % 14.0 41.0 25.8 FINAL Marlene Guzmán [place] [facility] [place] [facility] , [address] [place] [id number] 0 03/09 CBC w/ auto diff MO % % 6.0 15.0 6.2 FINAL Marlene Guzmán [place] [facility] [place] [facility] , [address] [place] [id number] 0 03/09 CBC w/ auto diff EO % % 0.0 7.0 1.1 FINAL Marlene Guzmán [place] [facility] [place] [facility] , [address] [place] [id number] 0 03/09 CBC w/ auto diff BA % % 0.0 2.0 0.6 FINAL Marlene Guzmán [place] [facility] [place] [facility] , [address] [place] [id number] 0 03/09 CBC w/ auto diff LY # K/uL 0.4 3.6 1.8 FINAL Marlene Guzmán [place] [facility] [place] [facility] , [address] [place] [id number] 0 03/09 CBC w/ auto diff MO # K/uL 0.2 1.3 0.4 FINAL Marlene Guzmán [place] [facility] [place] [facility] , [address] [place] [id number] 0 03/09 CBC w/ auto diff EO # K/uL 0.0 0.6 0.1 FINAL Marlene Guzmán [place] [facility] [place] [facility] , [address] [place] [id number] 0 03/09 CBC w/ auto diff BA # K/uL 0.0 0.2 0.0 FINAL Marlene Guzmán [place] [facility] [place] [facility] , [address] [place] [id number] 0 03/09 CBC w/ auto diff NRBC % #/100W BC 0.0 0.2 0.0 FINAL Marlene Guzmán [place] [facility] [place] [facility] , [address] [place] [id number] 0 03/09 CBC w/ auto diff RBC M/uL 3.9 5.1 5.08 FINAL Marlene Guzmán [place] [facility] , [address] [place] [id number] 0 03/09 CBC w/ auto diff HCT % 35.0 48.0 42.9 FINAL Marlene Guzmán [place] [facility] , [address] [place] [id number] 0 03/09 CBC w/ auto diff MCV fL 80.0 104.0 84.4 FINAL Marlene Guzmán [place] [facility] [place] [facility] , [address] [place] [id number] 0 03/09 CBC w/ auto diff MCH pg 26.0 35.0 28.3 FINAL Marlene Guzmán [place] [facility] [place] [facility] , [address] [place] [id number] 0 03/09 CBC w/ auto diff MCHC g/dL 30.0 35.0 33.6 FINAL Marlene Guzmán [place] [facility] , [address] [place] [id number] 0 03/09 CBC w/ auto diff MPV fL 9.5 13.4 9.6 FINAL Marlene Guzmán [place] [facility] [place] [facility] , [address] [place] [id number] 0 03/09 CBC w/ auto diff RDW % 11.4 16.1 14.20 FINAL Marlene Guzmán [place] [facility] [place] [facility] , [address] [place] [id number] 0 03/09 Total prote in g/dL 6.3 8.2 7.1 FINAL Marlene Guzmán * [place] [facility] [place] [facility] , [address] [place] [id number] 0 03/09 Album in, SPE g/dL 3.31 5.31 4.70 FINAL Marlene Guzmán * [facility] , [address] [facility] [id number] 0 03/09 Alpha -1 globu tony g/dL 0.19 0.42 0.23 FINAL Marlene Guzmán * [facility] , [address] [facility] [id number] 0 03/09 Alpha -2 globu tony g/dL 0.44 1.03 0.52 FINAL Marlene Guzmán * [facility] , [address] [id number] 0 03/09 Beta globu tony g/dL 0.52 1.05 0.80 FINAL Marlene Guzmán * [facility] , [address] [id number] 0 03/09 Gamma globu tony g/dL 0.59 1.46 0.85 FINAL Marlene Guzmán * [facility] , [address] [facility] [address] [id number] 0 03/09 Elect Gemma layton in Lab resul t note Previou sly identif ied parapro teins detecte d in gamma region. Is now 0.3 and 0.4 gm/dL. Interpr eted and signed by Luis Guillermo MD on 025 FINAL Marlene Guzmán * [facility] , [address] [facility] [id number] 0 03/09 M-spi ke, SPE, g/dL g/dL 0.0 0.0 0.3 High FINAL Marlene Guzmán * [facility] , [address] [facility] [id number] 0 03/09 M-spi ke 2, SPE g/dL 0.0 0.0 0.4 High FINAL Marlene Guzmán * [facility] , [address] [facility] [id number] 0 03/09 Immun oglob ulin measu remen t IgG, quant mg/dL 610.0 1616.0 1080.49 Test performed at [facility] on a Binding Site Optilite Analyzer that uses a turbidime tric method for analysis. Patient testing should not be performed using multiple methodolo gies due to analytica l variation seen between test methodolo gies. FINAL Marlene Ramirez * [facility] , [address] [facility] [id number] 0 03/09 Immun oglob ulin measu remen t IgA, quant mg/dL 61.0 348.0 577.26 High Test performed at [facility] on a Binding Site Optilite Analyzer that uses a turbidime tric method for analysis. Patient testing should not be performed using multiple methodolo gies due to analytica l variation seen between test methodolo gies. FINAL Marlene Ramirez * [facility] , [address] [facility] [id number] 0 03/09 Immun oglob ulin measu remen t IgM, quant mg/dL 35.0 242.0 91.00 Test performed at [facility] on a Binding Site Optilite Analyzer that uses a turbidime tric method for analysis. Patient testing should not be performed using multiple methodolo gies due to analytica l variation seen between test methodolo gies. FINAL Marlene Guzmán * [facility] , [address] [facility] [address] [facility] [id number] 0 04/03 [facility] See attache malave Medications Date [...] 04/10/2025 Pain Scale 7.00 Notes Section * ACCOUNT PLANNER Follow-Up GYNECOLOGIC ONCOLOGY FOLLOW-UP VISIT Patient Name: JOSE ANGEL HENRY : 1960 Date of Visit: 10/11/2023 Referring Provider: Malissa Hernandez MD (INTERPRETER DEAF) Attending: Marlene Guzmán (Hematology/Oncology) Chief Complaint (Glass Installer Oncology): 6 week post op?? History of Present Illness (Glass Installer Oncology): 63 y.o.?? 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 Genetic Testing (Glass Installer Oncology): Interval History (Glass Installer Oncology) She was transferred from [facility] to [facility] after surgery from 09/03-09/09/23.?? She [...] Hysteroscopy with myosure, D & C 06/28/23 sports physical therapist History: - 3 , 1 SAb Allergies: [...] Methocarbamol Oral 500 mg tablet prn * Coalgate (Hydrocodone-Acetaminophen Oral 5 mg-325 mg) 5-325 mg [...] BSA: 2.36, BMI: 47.71 kg/m2 Physical Exam (Glass Installer Oncology): General:?? Anxious, , female with somewhat [...] record:05/23/2019 Last record:05/23/2019; ) Assessment & Plan (Glass Installer Oncology): 63?? y.o. 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 Pathology benign. Reviewedpathology, operative findings, expected recovery.?? She is recovering well, no further restrictions.?? 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 Pain Care Management: Pain Scale: [...] Electronically signed by Judy RAJPUT 10/11/2023 15:27 VICE PRESIDENT OF COMMUNICATIONS
--- NOTE | 2025-07-06 23:17 | CRLHL7_ITS ---
For Patients: As a result of the Century Cures Act, medical imaging exams and procedure reports are released immediately into your electronic medical record. You may view this report before your referring provider. If you have questions, please contact your health care provider. INDICATION: Near fall with increasing right hip pain. TECHNIQUE: CT of the pelvis without IV contrast. Coronal and sagittal reconstructions. COMPARISON: None. FINDINGS: No acute fracture or dislocation. Mild degenerative changes of the hips, sacroiliac joints, and pubic symphysis. Degenerative changes of the lower lumbar spine. No hip joint effusion. No significant soft tissue swelling. No bowel dilation, free air, or free fluid in the pelvis. No bladder wall thickening. No lymphadenopathy. Hysterectomy. Colonic diverticulosis without evidence of diverticulitis. Rectus diastasis with small fat containing umbilical hernia. IMPRESSION: 1. No acute findings in the pelvis on this noncontrast exam. 2. No acute fracture or dislocation. Mild osseous degenerative changes. Please note that all CT scans at this facility use dose modulation, iterative reconstruction, and/or weight-based dosing when appropriate to reduce radiation dose to as low as reasonably achievable. Dictated by Noris Carlson MD @ 07/06/2025 11:50:09 PM (Electronically Signed)
--- OUTSIDE RECORDS SUMMARY | 2025-07-06 23:17 | XMS_ITS ---
Author Name Interface, [id number] lity Address [address] [facility] [address] [place] [address] [facility] Address [address] [facility] [address] [place] [address] Support Name Relationship Address Phone Greg Ch [...] FINAL [facility] [place], [address] [place] [address] 210 [facility] [phone] Phone: () - 11/22 Appea ying (ua) Clear FINAL [facility] [place], [address] [place] [address] 210 [facility] [phone] Phone: () - 11/22 Gluco se (ua), qual 500.0% Abnor mal FINAL [facility] [place], [address] [facility] 210 [facility] [phone] Phone: () - 11/22 Bilir ubin (ua) Negativ e FINAL [facility] [place], [address] [place] [address] 210 [facility] [phone] Phone: () - 11/22 Urina lysis , aceto ne or keton e chapo s measu remen t Negativ e FINAL [facility] [place], [address] [facility] 210 [place] [phone] 0 Phone: () - 11/22 Speci fic gravi ty (ua) 1.005 1.02 1.025% Abnor mal FINAL [facility] [place], [address] [facility] 210 [place] [phone] 0 Phone: () - 11/22 Blood (ua) Negativ e FINAL [facility] [place], [address] [place] [address] 210 [place] [phone] 0 Phone: () - 11/22 pH (ua) 5.0 8.0 6.0% FINAL [facility] [place], [address] [place] [address] 210 [facility] [phone] 0 Phone: () - 11/22 Prote in (ua) Negativ e FINAL [facility] [place], [address] [place] [address] 210 [place] [phone] Phone: () - 11/22 Urobi linog en (ua) 0.2 1.0 0.2% FINAL [facility] [place], [address] [place] [address] 210 [place] [phone] 0 Phone: () - 11/22 Nitri te (ua) Negativ e FINAL [facility] [place], [address] [place] [address] 210 [place] [phone] 0 Phone: () - 11/22 Leuko cyte jerson ase (ua), qual Negativ e FINAL [facility] [place], [address] [place] [address] 210 [place] [phone] Phone: () - 11/22 UA comme nt 1 Dipstic k negativ e- Culture ordered per provide r FINAL [facility] [place], [address] [place] [address] 210 [place] [phone] 0 Phone: () - 11/22 Urine cultu re panel CULTU RE, URINE , ROUTI NE SEE NOTE Abnor mal CULTURE, URINE, ROUTINEMi microstrategy developer Number: [id number] est Status: FinalSpec imen Source: UrineSpec imen [...] f. FINAL Hafsa Bud [facility], [facility] [address] [facility] [phone] 4 12/18 [facility] other lab See operator specialist communications d 04/18 Total prote in g/dL 6.3 8.2 6.9 FINAL Marlene Guzmán * [facility], [address] [facility] [address] [place] [address] [id number] 04/18 Album in, SPE g/dL 3.31 5.31 3.97 FINAL Marlene Gzumán * [facility], [facility] [address] [place] [address] [id number] 04/18 Alpha -1 globu tony g/dL 0.19 0.42 0.26 FINAL Marlene Guzmán * [facility], [facility] [address] [place] [address] [id number] 0 04/18 Alpha -2 globu tony g/dL 0.44 1.03 0.63 FINAL Marlene Guzmán * [facility] [address] [place] [address] [id number] 0 04/18 Beta globu tony g/dL 0.52 1.05 0.95 FINAL Marlene Guzmán * [facility], [address] [facility] [address] [place] [address] [id number] 0 04/18 Gamma globu tony g/dL 0.59 1.46 1.10 FINAL Marlene Guzmán * [facility], [address] [facility] [address] [place] [address] [id number] 0 04/18 Elect Gemma layton in Lab resul t note Previou sly identif ied parapro teins detecte d in gamma region. Were 0.3 and 0.4 gm/dL, now 0.3 and 0.3 gm/dL. Interpr eted and signed by Adrienne Swanson MD on 024 FINAL Marlene Guzmán * [facility], [facility] [address] [place] [address] [id number] 04/18 M-spi ke, SPE, g/dL g/dL 0.0 0.0 0.3 High FINAL Marleneanabel Guzmán * [facility], [address] [facility] [id number] 04/18 M-spi ke 2, SPE g/dL 0.0 0.0 0.3 High FINAL Marlene Guzmán * [facility], [address] [facility] [address] [facility] [id number] 0 04/18 Immun oglob ulin measu remen t IgG, quant mg/dL 610.0 1616.0 946.67 Test performed at [facility] on a Binding Site Optilite Analyzer that uses a turbidime tric method for analysis. Patient testing should not be performed using multiple methodolo gies due to analytica l variation seen between test methodolo gies. FINAL Marlene Guzmán * [facility], [address] [id number] 0 04/18 Immun oglob ulin measu remen t IgA, quant mg/dL 61.0 348.0 493.08 High Test performed at [facility] on a Binding Site Optilite Analyzer that uses a turbidime tric method for analysis. Patient testing should not be performed using multiple methodolo gies due to analytica l variation seen between test methodolo gies. FINAL Marlene Guzmán * [facility], [address] [id number] 0 04/18 Immun oglob ulin measu remen t IgM, quant mg/dL 35.0 242.0 75.62 Test performed at [facility] on a Binding Site Optilite Analyzer that uses a turbidime tric method for analysis. Patient testing should not be performed using multiple methodolo gies due to analytica l variation seen between test methodolo gies. FINAL Marlene Guzmán * [facility], [address] [id number] 0 04/18 Free kappa / lambd a with K/L ratio , serum [place] light chain , free, serum , mg/dL mg/dL 0.33 1.94 3.62 High Test performed at [facility] on a Binding Site Optilite Analyzer that uses a turbidime tric method for analysis. Patient testing should not be performed using multiple methodolo gies due to analytica l variation seen between test methodolo gies. FINAL Marlene Stroud [facility], [address] [id number] 0 04/18 Free kappa / lambd a with K/L ratio , serum Lamb[place] a light chain , free, serum , mg/dL mg/dL 0.57 2.63 3.13 High Test performed at [facility] on a Binding Site Optilite Analyzer that uses a turbidime tric method for analysis. Patient testing should not be performed using multiple methodolo gies due to analytica l variation seen between test methodolo gies. FINAL Marlene [facility], [address] [facility] [address] [id number] 0 04/18 Free kappa / lambd a with K/L ratio , serum K/L light chain ratio , free, serum 0.26 1.65 1.16% FINAL Marlene [facility], [address] [facility] [address] [id number] 0 04/18 CBC w/ auto diff WBC K/uL 3.0 8.9 7.0 FINAL Marlene [facility] [place], [address] [facility] [address] [facility] [id number] 0 Phone: () - 04/18 CBC w/ auto diff HGB g/dL 11.3 15.2 14.0 FINAL Marlene [facility] - [place], [address] [place] [id number] 0 Phone: () - 04/18 CBC w/ auto diff PLT K/uL 113.0 364.0 164 FINAL Marlene [facility]i [facility] - [place], [address] [place] [id number] 0 Phone: () - 04/18 CBC w/ auto diff Tammy # (ANC) K/uL 1.6 6.6 4.5 FINAL Marlene [facility] [place], [address] [place] [id number] 0 Phone: () - 04/18 CBC w/ auto diff Atmmy % % 43.0 74.0 64.0 FINAL Marlene Ramirez [facility] [place], [address] [place] [id number] 0 Phone: () - 04/18 CBC w/ auto diff IG % % 0.0 0.5 0.3 FINAL Marlene Ramirez [facility] [place], [address] [place] [id number] 0 Phone: () - 04/18 CBC w/ auto diff IG # K/uL 0.0 0.03 0.02 FINAL Marlene Ramirez [facility] [place], [address] [place] [id number] 0 Phone: () - 04/18 CBC w/ auto diff LY % % 14.0 41.0 28.2 FINAL Marlene Guzmán [facility] [place], [address] [place] [id number] 0 Phone: () - 04/18 CBC w/ auto diff MO % % 6.0 15.0 6.0 FINAL Marlene Guzmán [facility] [place], [address] [place] [id number] 0 Phone: () - 04/18 CBC w/ auto diff EO % % 0.0 7.0 1.1 FINAL Marlene Ramirez [facility] [place], [address] [place] [id number] 0 Phone: () - 04/18 CBC w/ auto diff BA % % 0.0 2.0 0.4 FINAL Marlene [facility] [place], [address] [place] [id number] 0 Phone: () - 04/18 CBC w/ auto diff LY # K/uL 0.4 3.6 2.0 FINAL Marlene [facility] - [place], [address] [place] [id number] 0 Phone: () - 04/18 CBC w/ auto diff MO # K/uL 0.2 1.3 0.4 FINAL Marlene [facility] [place], [address] [place] [id number] 0 Phone: () - 04/18 CBC w/ auto diff EO # K/uL 0.0 0.6 0.1 FINAL Marlene [facility] - [place], [address] [place] [id number] 0 Phone: () - 04/18 CBC w/ auto diff BA # K/uL 0.0 0.2 0.0 FINAL Marlene [facility] - [place], [address] [place] [id number] 0 Phone: () - 04/18 CBC w/ auto diff NRBC % #/100W BC 0.0 0.2 0.0 FINAL Marlene [facility] - [place], [address] [place] [id number] 0 Phone: () - 04/18 CBC w/ auto diff RBC M/uL 3.9 5.1 4.84 FINAL Marlene [facility] [place], [address] [place] [id number] 0 Phone: () - 04/18 CBC w/ auto diff HCT % 35.0 48.0 40.4 FINAL Marlene Guzmán [facility] [place], [address] [place] [id number] 0 Phone: () - 04/18 CBC w/ auto diff MCV fL 80.0 104.0 83.5 FINAL Marlene Guzmán [facility] [place], [address] [place] [id number] 0 Phone: () - 04/18 CBC w/ auto diff MCH pg 26.0 35.0 28.9 FINAL Marlene Guzmán [facility] [place], [address] [place] [id number] 0 Phone: () - 04/18 CBC w/ auto diff MCHC g/dL 30.0 35.0 34.7 FINAL Marlene Guzmán [facility] [place], [address] [place] [id number] 0 Phone: () - 04/18 CBC w/ auto diff MPV fL 9.5 13.4 9.7 FINAL Marlene Guzmán [facility] [place], [address] [place] [id number] 0 Phone: () - 04/18 CBC w/ auto diff RDW % 11.4 16.1 13.80 FINAL Marlene Guzmán [facility] [place], [address] [place] [id number] 0 Phone: () - 04/18 CMP Album in g/dL 3.5 5.0 4.0 FINAL Marlene Guzmán * [facility] [place], [address] [place] [id number] 0 04/18 CMP Alkal ine phosp hatas e U/L 36.0 125.0 105 FINAL Marlene Guzmán * [facility] [place], [address] [place] [id number] 0 04/18 CMP ALT/S GPT U/L 0.0 34.0 35 High FINAL Marlene Guzmán * [facility], [address] [facility] [address] [id number] 0 04/18 CMP AST/S GOT U/L 14.0 36.0 44 High FINAL Marlene Guzmán * [facility], [address] [facility] [address] [id number] 0 04/18 CMP BUN mg/dL 7.0 17.0 21.0 High FINAL Marlene Guzmán * [facility], [address] [facility] [address] [id number] 0 04/18 CMP Calci um mg/dL 8.4 10.2 8.8 FINAL Marlene Guzmán * [facility], [address] [facility] [address] [id number] 0 04/18 CMP Chlor nilson mmol/L 96.0 107.0 106 FINAL Marlene Guzmán * [facility], [address] [facility] [address] [id number] 0 04/18 CMP CO2 mmol/L 22.0 30.0 [...] hour stability window. FINAL Marlene Guzmán * [facility], [address] [facility] [address] [id number] 0 04/18 CMP Creat inine mg/dL 0.66 1.25 0.70 FINAL Marlene Guzmán * [facility], [address] [facility] [id number] 0 04/18 CMP GFR estim ate ml/min /1.73m ^2 97.7 GFR is calculate d using the CKD-EPI equation. FINAL Marlene Guzmán * [facility], [address] [facility] [id number] 0 04/18 CMP Gluco se mg/dL 74.0 100.0 267 High FINAL Marlene Guzmán * [facility], [address] [facility] [id number] 0 04/18 CMP Potas sium mmol/L 3.5 5.1 4.0 FINAL Marlene Guzmán * [facility], [address] [facility] [id number] 0 04/18 CMP Sodiu m mmol/L 137.0 145.0 136 Low FINAL Marlene Guzmán * [facility], [address] [facility] [id number] 0 04/18 CMP Bilir ubin, total mg/dL 0.2 1.3 1.0 FINAL Marlene Guzmán * [facility], [address] [facility] [id number] 0 04/18 CMP Total prote in g/dL 6.3 8.2 7.3 FINAL Marlene Guzmán * [facility], [address] [facility] [id number] 0 04/18 [facility] other lab See operator specialist communications d 12/20 [facility] other lab See operator specialist communications d 12/20 Misc other lab See operator specialist communications d 03/09 Free kappa / lambd a with K/L ratio , serum [place] light chain , free, serum , mg/dL mg/dL 0.33 1.94 4.35 High Test performed at [facility] on a Binding Site Optilite Analyzer that uses a turbidime tric method for analysis. Patient testing should not be performed using multiple methodolo gies due to analytica l variation seen between test methodolo gies. FINAL Marlene Guzmán * [facility] , [address] [facility] [address] [facility] [id number] 0 03/09 Free kappa / lambd a with K/L ratio , serum [place] a light chain , free, serum , mg/dL mg/dL 0.57 2.63 3.83 High Test performed at [facility] on a Binding Site Optilite Analyzer that uses a turbidime tric method for analysis. Patient testing should not be performed using multiple methodolo gies due to analytica l variation seen between test methodolo gies. FINAL Marlene Gumzán * [facility] , [address] [facility] [address] [id number] 0 03/09 Free kappa / lambd a with K/L ratio , serum K/L light chain ratio , free, serum 0.26 1.65 1.14% FINAL Marlene Guzmán * [facility] , [address] [facility] [address] [id number] 0 03/09 CMP Album in g/dL 3.5 5.0 3.8 FINAL Marlene Guzmán * [facility] , [address] [facility] [address] [id number] 0 03/09 CMP Alkal ine phosp hatas e U/L 36.0 125.0 106 FINAL Marlene Guzmán * [facility] , [address] [facility] [address] [id number] 0 03/09 CMP ALT/S GPT U/L 0.0 34.0 37 High FINAL Marlene Guzmán * [facility] , [address] [facility] [address] [id number] 0 03/09 CMP AST/S GOT U/L 14.0 36.0 36 FINAL Marlene Ramirez * [facility] , [address] [facility] [address] [facility] [id number] 0 03/09 CMP BUN mg/dL 7.0 17.0 18.0 High FINAL Marlene Guzmán * [facility] , [address] [facility] [address] [facility] [id number] 0 03/09 CMP Calci um mg/dL 8.4 10.2 8.9 FINAL Marlene Guzmán * [facility] , [address] [facility] [address] [facility] [id number] 0 03/09 CMP Chlor nilson mmol/L 96.0 107.0 99 FINAL Marlene Guzmán * [facility] , [address] [facility] [address] [facility] [id number] 0 03/09 CMP CO2 mmol/L 22.0 30.0 [...] hour stability window. FINAL Marlene Guzmán * [facility] , [address] [facility] [address] [facility] [id number] 0 03/09 CMP Creat inine mg/dL 0.66 1.25 0.70 FINAL Marlene Guzmán * [facility] , [address] [facility] [address] [facility] [id number] 0 03/09 CMP GFR estim ate ml/min /1.73m ^2 97.1 GFR is calculate d using the CKD-EPI equation. FINAL Marlene Guzmán * [facility] , [address] [facility] [address] [id number] 0 03/09 CMP Gluco se mg/dL 74.0 100.0 363 Criti sami High FINAL Marlene Guzmán * [facility] , [address] [facility] [address] [facility] [id number] 0 03/09 CMP Potas sium mmol/L 3.5 5.1 3.9 FINAL Marlene Guzmán * [facility] , [address] [facility] [address] [facility] [id number] 0 03/09 CMP Sodiu m mmol/L 137.0 145.0 134 Low FINAL Marlene Guzmán * [facility] , [address] [facility] [address] [facility] [id number] 0 03/09 CMP Bilir ubin, total mg/dL 0.2 1.3 1.1 FINAL Marlene Guzmán * [facility] , [address] [facility] [address] [facility] [id number] 0 03/09 CMP Total prote in g/dL 6.3 8.2 7.3 FINAL Marlene Guzmán * [facility] , [address] [facility] [address] [facility] [id number] 0 03/09 CBC w/ auto diff WBC K/uL 3.0 8.9 7.1 FINAL Marlene Guzmán [place] [facility] [place] [facility] , [address] [place] [id number] 0 03/09 CBC w/ auto diff HGB g/dL 11.3 15.2 14.4 FINAL Marlene Guzmán [place] [facility] [place] [facility] , [address] [place] [id number] 0 03/09 CBC w/ auto diff PLT K/uL 113.0 364.0 179 FINAL Marlene Guzmán [place] [facility] [place] [facility] , [address] [place] [id number] 0 03/09 CBC w/ auto diff Tammy # (ANC) K/uL 1.6 6.6 4.7 FINAL Marlene Guzmán [place] [facility] [place] [facility] , [address] [place] [id number] 0 03/09 CBC w/ auto diff Tammy % % 43.0 74.0 65.7 FINAL Marlene Guzmán [place] [facility] [place] [facility] , [address] [place] [id number] 0 03/09 CBC w/ auto diff IG % % 0.0 0.5 0.6 High FINAL Marlene Guzmán [place] [facility] [place] [facility] , [address] [place] [id number] 0 03/09 CBC w/ auto diff IG # K/uL 0.0 0.03 0.04 High FINAL Marlene Guzmán [place] [facility] [place] [facility] , [address] [place] [id number] 0 03/09 CBC w/ auto diff LY % % 14.0 41.0 25.8 FINAL Marlene Guzmán [place] [facility] [place] [facility] , [address] [place] [id number] 0 03/09 CBC w/ auto diff MO % % 6.0 15.0 6.2 FINAL Marlene Guzmán [place] [facility] [place] [facility] , [address] [place] [id number] 0 03/09 CBC w/ auto diff EO % % 0.0 7.0 1.1 FINAL Marlene Guzmán [place] [facility] [place] [facility] , [address] [place] [id number] 0 03/09 CBC w/ auto diff BA % % 0.0 2.0 0.6 FINAL Marlene Guzmán [place] [facility] [place] [facility] , [address] [place] [id number] 0 03/09 CBC w/ auto diff LY # K/uL 0.4 3.6 1.8 FINAL Marlene Guzmán [place] [facility] [place] [facility] , [address] [place] [id number] 0 03/09 CBC w/ auto diff MO # K/uL 0.2 1.3 0.4 FINAL Marlene Guzmán [place] [facility] [place] [facility] , [address] [place] [id number] 0 03/09 CBC w/ auto diff EO # K/uL 0.0 0.6 0.1 FINAL Marlene Guzmán [place] [facility] [place] [facility] , [address] [place] [id number] 0 03/09 CBC w/ auto diff BA # K/uL 0.0 0.2 0.0 FINAL Marlene Guzmán [place] [facility] [place] [facility] , [address] [place] [id number] 0 03/09 CBC w/ auto diff NRBC % #/100W BC 0.0 0.2 0.0 FINAL Marlene Guzmán [place] [facility] [place] [facility] , [address] [place] [id number] 0 03/09 CBC w/ auto diff RBC M/uL 3.9 5.1 5.08 FINAL Mralene Guzmán [place] [facility] [place] [facility] , [address] [place] [id number] 0 03/09 CBC w/ auto diff HCT % 35.0 48.0 42.9 FINAL Marlene Guzmán [facility] , [address] [place] [facility] [id number] 0 03/09 CBC w/ auto diff MCV fL 80.0 104.0 84.4 FINAL Marlene Guzmán [facility] , [address] [facility] [address] [place] [facility] [id number] 0 03/09 CBC w/ auto diff MCH pg 26.0 35.0 28.3 FINAL Marlene Guzmán [facility] , [address] [facility] [address] [facility] [id number] 0 03/09 CBC w/ auto diff MCHC g/dL 30.0 35.0 33.6 FINAL Marlene Guzmán [facility] , [address] [facility] [address] [facility] [id number] 0 03/09 CBC w/ auto diff MPV fL 9.5 13.4 9.6 FINAL Marlene Guzmán [facility] , [address] [facility] [address] [facility] [id number] 0 03/09 CBC w/ auto diff RDW % 11.4 16.1 14.20 FINAL Marlene Guzmán [facility] , [address] [facility] [address] [facility] [id number] 0 03/09 Immun oglob ulin measu remen t IgG, quant mg/dL 610.0 1616.0 1080.49 Test performed at [facility] on a Binding Site Optilite Analyzer that uses a turbidime tric method for analysis. Patient testing should not be performed using multiple methodreal rocha due to analytica l variation seen between test methodreal rocha. FINAL Marlene Guzmán * [facility] , [address] [facility] [id number] 0 03/09 Immun oglob ulin measu remen t IgA, quant mg/dL 61.0 348.0 577.26 High Test performed at [facility] on a Binding Site Optilite Analyzer that uses a turbidime tric method for analysis. Patient testing should not be performed using multiple methodolo gies due to analytica l variation seen between test methodolo gies. FINAL Marlene Guzmán * [facility] , [facility] [address] [id number] 0 03/09 Immun oglob ulin measu remen t IgM, quant mg/dL 35.0 242.0 91.00 Test performed at [facility] on a Binding Site Optilite Analyzer that uses a turbidime tric method for analysis. Patient testing should not be performed using multiple methodolo gies due to analytica l variation seen between test methodolo gies. FINAL Marlene Guzmán * [facility] , [facility] [address] [id number] 0 03/09 Total prote in g/dL 6.3 8.2 7.1 FINAL Marlene Guzmán * [facility] , [facility] [address] [place] [address] [id number] 03/09 Album in, SPE g/dL 3.31 5.31 4.70 FINAL Marlene Guzmán * [facility] , [facility] [address] [id number] 0 03/09 Alpha -1 globu tony g/dL 0.19 0.42 0.23 FINAL Marlene Guzmán * [facility] , [facility] [address] [id number] 0 03/09 Alpha -2 globu tony g/dL 0.44 1.03 0.52 FINAL Marlene Guzmán * [facility] , [facility] [address] [id number] 03/09 Beta globu tony g/dL 0.52 1.05 0.80 FINAL Marlene Guzmán * [facility] , [address] [facility] [address] [id number] 0 03/09 Gamma globu tony g/dL 0.59 1.46 0.85 FINAL Marlene Guzmán * [facility] , [address] [facility] [address] [id number] 03/09 Elect Gemma layton in Lab resul t note Previou sly identif ied parapro teins detecte d in gamma region. Is now 0.3 and 0.4 gm/dL. Interpr eted and signed by Luis Guillermo MD on 025 FINAL Marlene Guzmán * [facility] , [facility] [address] [id number] 03/09 M-spi ke, SPE, g/dL g/dL 0.0 0.0 0.3 High FINAL Marlene Guzmán * [facility] , [address] [facility] [address] [id number] 0 03/09 M-spi ke 2, SPE g/dL 0.0 0.0 0.4 High FINAL Marlene Guzmán * [facility] , [address] [facility] [address] [id number] 0 04/03 Misc other lab See operator specialist communications d Medications Date Name Route Dose Frequency [...] 70 04/10/2025 BMI 53.23 Notes 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 History of Present Illness ([employer]): 63 y.o.?? 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 Anxious, , female tearful??throughout visit. [...] record:05/23/2019 Last record:05/23/2019; ) Assessment & Plan ([employer]): 63?? y.o. with abnormal uterine bleeding/PMB [...]
--- OUTSIDE RECORDS SUMMARY | 2025-07-06 23:17 | XMS_ITS ---
Author Name Interface, [id number] lity Address [address] [facility] [address] [place] [address] [facility] Address [address] [facility] [address] [place] [address] Support Name Relationship Address Phone Greg Henry [...] Ordered By Specimen Source Lab Address 11/05 [facility] other lab See armed security guard d 11/08 [facility] other lab See armed security guard d 11/22 Color (ua) Yellow FINAL Hafsa Bud [place] [facility] [place], [address] [facility] [address] [place] [phone] Phone: () - 11/22 Appea ying (ua) Clear FINAL Hafsaanabel Rubi [facility] - [place], [address] [place] [address] [address] [place] [phone] Phone: () - 11/22 Gluco se (ua), qual 500.0% Abnor mal FINAL Hafsaanabel Rubi [facility] - [place], [address] [place] [address] [address] [place] [phone] 0 Phone: () - 11/22 Bilir ubin (ua) Negativ e FINAL Hafsaanabel Rubi a [facility] - [place], [address] [place] [address] [address] [place] [phone] Phone: () - 11/22 Urina lysis , aceto ne or keton e chapo s measu remen t Negativ e FINAL Hafsaanabel Rubi [facility] - [place], [address] [place] [address] [address] [place] [phone] Phone: () - 11/22 Speci fic gravi ty (ua) 1.005 1.02 1.025% Abnor mal FINAL Hafsaanabel Rubi [facility] - [place], [address] [place] [address] [address] [place] [phone] 0 Phone: () - 11/22 Blood (ua) Negativ e FINAL Hafsaanabel Rubi [facility] - [place], [address] [place] [address] [address] [place] [phone] 0 Phone: () - 11/22 pH (ua) 5.0 8.0 6.0% FINAL [facility]afsaanabel [place] [facility] [place], [address] [place] [address] [address] [place] [phone] Phone: () - 11/22 Prote in (ua) Negativ e FINAL Hafsaanabel Rubi [facility] - [place], [address] [place] [address] [address] [place] [phone] 0 Phone: () - 11/22 Urobi linog en (ua) 0.2 1.0 0.2% FINAL [facility]afsaanabel [facility] [facility] - [place], [address] [place] [address] 210 [facility] [phone] Phone: () - 11/22 Nitri te (ua) Negativ e FINAL Hafsa Rubi a [facility], [address] [place] [address] 210 [facility] [phone] Phone: () - 11/22 Leuko cyte jerson ase (ua), qual Negativ e FINAL Hafsa Rubi [facility] [place], [address] [place] [address] [phone] Phone: () - 11/22 UA comme nt 1 Dipstic k negativ e- Culture ordered per provide r FINAL Hafsa Rubi [facility] [place], [address] [place] [address] [phone] Phone: () - 11/22 Urine cultu re panel CULTU RE, URINE , ROUTI NE SEE NOTE Abnor mal CULTURE, URINE, ROUTINEMi crotch piece baster Number: [id number] est Status: FinalSpec imen Source: UrineSpec imen [...] f. FINAL Hafsaanabel Farrell [facility] [address] [facility] [id number] 4 12/18 [facility] other lab See d 04/18 Total prote in g/dL 6.3 8.2 6.9 FINAL Marlene Guzmán * [facility] [address] [place] [address] [id number] 0 04/18 Album in, SPE g/dL 3.31 5.31 3.97 FINAL Marlene Guzmán * [facility] [address] [place] [address] [id number] 0 04/18 Alpha -1 globu tony g/dL 0.19 0.42 0.26 FINAL Marlene Guzmán * [facility], [address] [id number] 0 04/18 Alpha -2 globu tony g/dL 0.44 1.03 0.63 FINAL Marlene Guzmán * [facility], [address] [id number] 0 04/18 Beta globu tony g/dL 0.52 1.05 0.95 FINAL Marlene Guzmán * [facility], [address] [id number] 0 04/18 Gamma globu tony g/dL 0.59 1.46 1.10 FINAL Marlene Guzmán * [facility] [address] [place] [address] [id number] 0 04/18 Elect abiola jackson Gemma in Lab resul t note Previou sly identif ied parapro teins detecte d in gamma region. Were 0.3 and 0.4 gm/dL, now 0.3 and 0.3 gm/dL. Interpr eted and signed by Adrienne Swanson MD on 024 FINAL Marlene Guzmán * [facility] [address] [place] [address] [id number] 0 04/18 M-spi ke, SPE, g/dL g/dL 0.0 0.0 0.3 High FINAL Marlene Guzmán * [facility], [address] [facility] [address] [id number] 0 04/18 M-spi ke 2, SPE g/dL 0.0 0.0 0.3 High FINAL Marlene Guzmán * [facility] [address] [place] [address] [id number] 0 04/18 Immun oglob ulin measu remen t IgG, quant mg/dL 610.0 1616.0 946.67 Test performed at [facility] on a Binding Site Optilite Analyzer that uses a turbidime tric method for analysis. Patient testing should not be performed using multiple methodreal gikim due to analytica l variation seen between test methodreal rocha. FINAL Marlene Guzmán * [facility] [address] [place] [address] [id number] 0 04/18 Immun oglob ulin measu remen t IgA, quant mg/dL 61.0 348.0 493.08 High Test performed at [facility] on a Binding Site Optilite Analyzer that uses a turbidime tric method for analysis. Patient testing should not be performed using multiple methodolo gies due to analytica l variation seen between test methodolo gies. FINAL Marlene Stroud [facility] [address] [place] [address] [id number] 0 04/18 Immun oglob ulin measu remen t IgM, quant mg/dL 35.0 242.0 75.62 Test performed at [facility] on a Binding Site Optilite Analyzer that uses a turbidime tric method for analysis. Patient testing should not be performed using multiple methodolo gies due to analytica l variation seen between test methodolo gies. FINAL Marlene Stroud [facility] a [address] [place] [address] [id number] 0 04/18 Free kappa / lambd a with K/L ratio , serum Woden light chain , free, serum , mg/dL mg/dL 0.33 1.94 3.62 High Test performed at [facility] on a Binding Site Optilite Analyzer that uses a turbidime tric method for analysis. Patient testing should not be performed using multiple methodolo gies due to analytica l variation seen between test methodolo gies. FINAL Marlene Guzmán * Jann a [address] [place] [address] [id number] 0 04/18 Free kappa / lambd a [...] gies. FINAL Marlene Stroud [facility] [address] [place] [address] [id number] 0 04/18 Free kappa / lambd a with K/L ratio , serum K/L light chain ratio , free, serum 0.26 1.65 1.16% FINAL Marlene Guzmán * [place] [place], [address] [facility] [place] [id number] 0 04/18 CBC w/ auto diff WBC K/uL 3.0 8.9 7.0 FINAL Marlene [facility] - [place], [address] [place] [id number] 0 Phone: () - 04/18 CBC w/ auto diff HGB g/dL 11.3 15.2 14.0 FINAL Marlene Rubi a [facility] - [place], [address] [place] [id number] 0 Phone: () - 04/18 CBC w/ auto diff PLT K/uL 113.0 364.0 164 FINAL Marlene Rubi a [facility] - [place], [address] [place] [id number] 0 Phone: () - 04/18 CBC w/ auto diff Tammy # (ANC) K/uL 1.6 6.6 4.5 FINAL Marlene pagan [facility] - [place], [address] [place] [id number] 0 Phone: () - 04/18 CBC w/ auto diff Tammy % % 43.0 74.0 64.0 FINAL Marlene pagan [facility] - [place], [address] [place] [id number] 0 Phone: () - 04/18 CBC w/ auto diff IG % % 0.0 0.5 0.3 FINAL Marlene Rubi a [facility] - [place], [address] [place] [id number] 0 Phone: () - 04/18 CBC w/ auto diff IG # K/uL 0.0 0.03 0.02 FINAL Marlene Rubi a [facility] - [place], [address] [place] [id number] 0 Phone: () - 04/18 CBC w/ auto diff LY % % 14.0 41.0 28.2 FINAL Marlene pagan [facility] - [place], [address] [place] [id number] 0 Phone: () - 04/18 CBC w/ auto diff MO % % 6.0 15.0 6.0 FINAL Marlene pagan [facility] - [place], [address] [place] [id number] 0 Phone: () - 04/18 CBC w/ auto diff EO % % 0.0 7.0 1.1 FINAL Marlene pagan [facility] - [place], [address] [place] [id number] 0 Phone: () - 04/18 CBC w/ auto diff BA % % 0.0 2.0 0.4 FINAL Marlene pagan [facility] - [place], [address] [place] [id number] 0 Phone: () - 04/18 CBC w/ auto diff LY # K/uL 0.4 3.6 2.0 FINAL Marlene pagan [facility] - [place], [address] [place] [id number] 0 Phone: () - 04/18 CBC w/ auto diff MO # K/uL 0.2 1.3 0.4 FINAL Marlene pagan [facility] - [place], [address] [place] [id number] 0 Phone: () - 04/18 CBC w/ auto diff EO # K/uL 0.0 0.6 0.1 FINAL Marlene pagan [facility] - [place], [address] [place] [id number] 0 Phone: () - 04/18 CBC w/ auto diff BA # K/uL 0.0 0.2 0.0 FINAL Marlene pagan [facility] - [place], [address] [place] [id number] 0 Phone: () - 04/18 CBC w/ auto diff NRBC % #/100W BC 0.0 0.2 0.0 FINAL Marlene [place] [facility] - [place], [address] [place] [id number] 0 Phone: () - 04/18 CBC w/ auto diff RBC M/uL 3.9 5.1 4.84 FINAL Marlene [facility] [facility] - [place], [address] [place] [id number] 0 Phone: () - 04/18 CBC w/ auto diff HCT % 35.0 48.0 40.4 FINAL Marlene Ramirez [facility] - [place], [address] [place] [id number] 0 Phone: () - 04/18 CBC w/ auto diff MCV fL 80.0 104.0 83.5 FINAL Marlene Ramirez [facility] - [place], [address] [place] [id number] 0 Phone: () - 04/18 CBC w/ auto diff MCH pg 26.0 35.0 28.9 FINAL Marlene Guzmán [facility] - [place], [address] [place] [id number] 0 Phone: () - 04/18 CBC w/ auto diff MCHC g/dL 30.0 35.0 34.7 FINAL Marlene Guzmán [facility] - [place], [address] [place] [id number] 0 Phone: () - 04/18 CBC w/ auto diff MPV fL 9.5 13.4 9.7 FINAL Marlene Guzmán [facility] - [place], [address] [place] [id number] 0 Phone: () - 04/18 CBC w/ auto diff RDW % 11.4 16.1 13.80 FINAL Marlene Guzmán [place] [facility] [place], [address] [facility] [place] [phone] 0 Phone: ( 04/18 CMP Album in g/dL 3.5 5.0 4.0 FINAL Marlene Guzmán * [place] [place], [address] [facility] [id number] 0 04/18 CMP Alkal ine phosp hatas e U/L 36.0 125.0 105 FINAL Marlene Guzmán * [facility] [facility], [address] [facility] [id number] 0 04/18 CMP ALT/S GPT U/L 0.0 34.0 35 High FINAL Marlene Guzmán * [place] [facility], [address] [facility] [id number] 0 04/18 CMP AST/S GOT U/L 14.0 36.0 44 High FINAL Marlene Guzmán * [facility] [facility], [address] [facility] [id number] 0 04/18 CMP BUN mg/dL 7.0 17.0 21.0 High FINAL Marlene Guzmán * [place] [facility], [address] [facility] [id number] 0 04/18 CMP Calci um mg/dL 8.4 10.2 8.8 FINAL Marlene Guzmán * [place] [facility], [address] [facility] [id number] 0 04/18 CMP Chlor nilson mmol/L 96.0 107.0 106 FINAL Marlene Guzmán * [place] [facility], [address] [facility] [id number] 0 04/18 CMP CO2 mmol/L 22.0 30.0 [...] 96 hour stability window. FINAL Marlene Stroud [facility] [address] [id number] 0 04/18 CMP Creat inine mg/dL 0.66 1.25 0.70 FINAL Marlene Guzmán * [facility], [address] [place] [address] [id number] 0 04/18 CMP GFR estim ate ml/min /1.73m ^2 97.7 GFR is calculate d using the CKD-EPI equation. FINAL Marlene Stroud [facility] [address] [id number] 0 04/18 CMP Gluco se mg/dL 74.0 100.0 267 High FINAL Marlene Stroud [facility] [address] [place] [address] [id number] 0 04/18 CMP Potas sium mmol/L 3.5 5.1 4.0 FINAL Marlene Stroud [facility] [address] [id number] 0 04/18 CMP Sodiu m mmol/L 137.0 145.0 136 Low FINAL Marlene Stroud [facility] [address] [id number] 0 04/18 CMP Bilir ubin, total mg/dL 0.2 1.3 1.0 FINAL Marlene Stroud [facility], [address] [facility] [address] [id number] 0 04/18 CMP Total prote in g/dL 6.3 8.2 7.3 FINAL Marlene Guzmán * [place] [facility] [place], [address] [facility] [address] [id number] 0 04/18 [facility] other lab See armed security guard d 12/20 [facility] other lab See armed security guard d 12/20 [facility] other lab See armed security guard d 03/09 Free kappa / lambd a with K/L ratio , serum Woden light chain , free, serum , mg/dL mg/dL 0.33 1.94 4.35 High Test performed at [facility] on a Binding Site Optilite Analyzer that uses a turbidime tric method for analysis. Patient testing should not be performed using multiple methodolo gies due to analytica l variation seen between test methodolo gies. FINAL Marlene Guzmán * [facility] , [address] [facility] [address] [id number] 0 03/09 Free kappa / lambd a [...] test methodolo gies. FINAL Marlene Guzmán * [facility] , [address] [facility] [address] [id number] 0 03/09 Free kappa / lambd a with K/L ratio , serum K/L light chain ratio , free, serum 0.26 1.65 1.14% FINAL Marlene Guzmán * [facility] , [address] [facility] [address] [id number] 0 03/09 CMP Album in g/dL 3.5 5.0 3.8 FINAL Marlene Guzmán * [facility] , [address] [facility] [id number] 0 03/09 CMP Alkal ine phosp hatas e U/L 36.0 125.0 106 FINAL Marleneanabel Guzmán * [facility] , [address] [facility] [id number] 0 03/09 CMP ALT/S GPT U/L 0.0 34.0 37 High FINAL Marlene Guzmán * [facility] , [address] [facility] [id number] 0 03/09 CMP AST/S GOT U/L 14.0 36.0 36 FINAL Marlene Guzmán * [facility] , [address] [facility] [id number] 0 03/09 CMP BUN mg/dL 7.0 17.0 18.0 High FINAL Marlene Guzmán * [facility] , [address] [facility] [id number] 0 03/09 CMP Calci um mg/dL 8.4 10.2 8.9 FINAL Marleneanabel Guzmán * [facility] , [address] [facility] [id number] 0 03/09 CMP Chlor nilson mmol/L 96.0 107.0 99 FINAL Marleneanabel Guzmán * [facility] , [address] [facility] [id number] 0 03/09 CMP CO2 mmol/L 22.0 30.0 [...] hour stability window. FINAL Marleneanabel Guzmán * [facility] , [address] [facility] [address] [facility] [id number] 0 03/09 CMP Creat inine mg/dL 0.66 1.25 0.70 FINAL Marleneanabel Guzmán * [facility] , [address] [facility] [address] [facility] [id number] 0 03/09 CMP GFR estim ate ml/min /1.73m ^2 97.1 GFR is calculate d using the CKD-EPI equation. FINAL Marleneanabel Guzmán * [facility] , [address] [facility] [address] [facility] [id number] 0 03/09 CMP Gluco se mg/dL 74.0 100.0 363 Criti sami High FINAL Marlene Guzmán * [facility] , [address] [facility] [address] [facility] [id number] 0 03/09 CMP Potas sium mmol/L 3.5 5.1 3.9 FINAL Marlene Ramirez * [facility] , [address] [facility] [address] [facility] [id number] 0 03/09 CMP Sodiu m mmol/L 137.0 145.0 134 Low FINAL Marleneanabel Guzmán * [facility] , [address] [facility] [address] [facility] [id number] 0 03/09 CMP Bilir ubin, total mg/dL 0.2 1.3 1.1 FINAL Marleneanabel Guzmán * [facility] , [address] [facility] [address] [facility] [id number] 0 03/09 CMP Total prote in g/dL 6.3 8.2 7.3 FINAL Marlene Guzmán * [facility] , [address] [facility] [address] [facility] [id number] 0 03/09 CBC w/ auto diff WBC K/uL 3.0 8.9 7.1 FINAL Marlene Guzmán [place] [facility] [place] [facility] , [address] [place] [id number] 0 03/09 CBC w/ auto diff HGB g/dL 11.3 15.2 14.4 FINAL Marlene Guzmán [place] [facility] [place] [facility] , [address] [place] [id number] 0 03/09 CBC w/ auto diff PLT K/uL 113.0 364.0 179 FINAL Marlene Guzmán [place] [facility] [place] [facility] , [address] [place] [id number] 0 03/09 CBC w/ auto diff Tammy # (ANC) K/uL 1.6 6.6 4.7 FINAL Marlene Guzmán [facility] [place] [facility] , [address] [place] [id number] 0 03/09 CBC w/ auto diff Tammy % % 43.0 74.0 65.7 FINAL Marlene Guzmán [place] [facility] [place] [facility] , [address] [place] [id number] 0 03/09 CBC w/ auto diff IG % % 0.0 0.5 0.6 High FINAL Marlene Guzmán [place] [facility] [place] [facility] , [address] [place] [id number] 0 03/09 CBC w/ auto diff IG # K/uL 0.0 0.03 0.04 High FINAL Marlene Guzmán [place] [facility] [place] [facility] , [address] [place] [id number] 0 03/09 CBC w/ auto diff LY % % 14.0 41.0 25.8 FINAL Marlene Guzmán [place] [facility] [place] [facility] , [address] [place] [id number] 0 03/09 CBC w/ auto diff MO % % 6.0 15.0 6.2 FINAL Marlene Guzmán [place] [facility] [place] [facility] , [address] [place] [id number] 0 03/09 CBC w/ auto diff EO % % 0.0 7.0 1.1 FINAL Marlene Guzmán [place] [facility] [place] [facility] , [address] [place] [id number] 0 03/09 CBC w/ auto diff BA % % 0.0 2.0 0.6 FINAL Marlene Guzmán [place] [facility] [place] [facility] , [address] [place] [id number] 0 03/09 CBC w/ auto diff LY # K/uL 0.4 3.6 1.8 FINAL Marlene Guzmán [place] [facility] [place] [facility] , [address] [place] [id number] 0 03/09 CBC w/ auto diff MO # K/uL 0.2 1.3 0.4 FINAL Marlene Guzmán [place] [facility] [place] [facility] , [address] [place] [id number] 0 03/09 CBC w/ auto diff EO # K/uL 0.0 0.6 0.1 FINAL Marlene Guzmán [place] [facility] [place] [facility] , [address] [place] [id number] 0 03/09 CBC w/ auto diff BA # K/uL 0.0 0.2 0.0 FINAL Marlene Guzmán [place] [facility] [place] [facility] , [address] [place] [id number] 0 03/09 CBC w/ auto diff NRBC % #/100W BC 0.0 0.2 0.0 FINAL Marlene Guzmán [place] [facility] [place] [facility] , [address] [place] [id number] 0 03/09 CBC w/ auto diff RBC M/uL 3.9 5.1 5.08 FINAL Marlene Guzmán [place] [facility] [place] [facility] , [address] [place] [id number] 0 03/09 CBC w/ auto diff HCT % 35.0 48.0 42.9 FINAL Marlene Guzmán [facility] [place] [facility] , [address] [place] [id number] 0 03/09 CBC w/ auto diff MCV fL 80.0 104.0 84.4 FINAL Marlene Guzmán [facility] [place] [facility] , [address] [place] [id number] 0 03/09 CBC w/ auto diff MCH pg 26.0 35.0 28.3 FINAL Marlene Guzmán [facility] [place] [facility] , [address] [place] [id number] 0 03/09 CBC w/ auto diff MCHC g/dL 30.0 35.0 33.6 FINAL Marlene Guzmán [facility] [place] [facility] , [address] [place] [id number] 0 03/09 CBC w/ auto diff MPV fL 9.5 13.4 9.6 FINAL Marlene Guzmán [place] [facility] , [address] [place] [id number] 0 03/09 CBC w/ auto diff RDW % 11.4 16.1 14.20 FINAL Marlene Guzmán [facility] , [address] [facility] [id number] 0 03/09 Total prote in g/dL 6.3 8.2 7.1 FINAL Marlene Guzmán * [facility] , [address] [facility] [address] [facility] [id number] 0 03/09 Album in, SPE g/dL 3.31 5.31 4.70 FINAL Marlene Guzmán * [facility] , [address] [facility] [address] [id number] 0 03/09 Alpha -1 globu tony g/dL 0.19 0.42 0.23 FINAL Marlene Guzmán * [facility] , [address] [facility] [address] [id number] 0 03/09 Alpha -2 globu tony g/dL 0.44 1.03 0.52 FINAL Marlene Guzmán * [facility] , [address] [facility] [address] [id number] 0 03/09 Beta globu tony g/dL 0.52 1.05 0.80 FINAL Marlene Guzmán * [facility] , [address] [facility] [address] [id number] 0 03/09 Gamma globu tony g/dL 0.59 1.46 0.85 FINAL Marlene Guzmán * [facility] , [address] [facility] [address] [id number] 0 03/09 Gemma Rodriguez in Lab resul t note Previou sly identif ied parapro teins detecte d in gamma region. Is now 0.3 and 0.4 gm/dL. Interpr eted and signed by Luis Guillermo MD on 025 FINAL Marlene Guzmán * [facility] , [address] [facility] [id number] 0 03/09 M-spi ke, SPE, g/dL g/dL 0.0 0.0 0.3 High FINAL Marlene Guzmán * [facility] , [address] [facility] [id number] 0 03/09 M-spi ke 2, SPE g/dL 0.0 0.0 0.4 High FINAL Marlene Guzmán * [facility] , [address] [facility] [id number] 0 03/09 Immun oglob ulin measu remen t IgG, quant mg/dL 610.0 1616.0 1080.49 Test performed at [facility] on a Binding Site Optilite Analyzer that uses a turbidime tric method for analysis. Patient testing should not be performed using multiple methodolo gies due to analytica l variation seen between test methodolo gies. FINAL Marlene Guzmán * [facility] , [address] [facility] [id number] 0 03/09 Immun oglob ulin measu remen t IgA, quant mg/dL 61.0 348.0 577.26 High Test performed at [facility] on a Binding Site Optilite Analyzer that uses a turbidime tric method for analysis. Patient testing should not be performed using multiple methodolo gies due to analytica l variation seen between test methodolo gies. FINAL Marlene Guzmán * [facility] , [address] [facility] [id number] 0 03/09 Immun oglob ulin measu remen t IgM, quant mg/dL 35.0 242.0 91.00 Test performed at [facility] on a Binding Site Optilite Analyzer that uses a turbidime tric method for analysis. Patient testing should not be performed using multiple methodolo gies due to analytica l variation seen between test methodolo josefina. FINAL Marlene Guzmán * [facility] , [address] [facility] [id number] 0 04/03 [facility] other lab See attache malave Medications Date [...] 04/10/2025 Body Temperature 97.50 Notes Section * [facility] [facility] Onc Consult Note (Amended) GYNECOLOGIC ONCOLOGY CONSULT Patient Name: VERO HENRY Patient : 1960 Patient Referring Physician: Malissa Hernandez MD (CYTOGENETICS LABORATORY MANAGER) Primary GYNOncologist: Marlene Guzmán (Hematology/Oncology) Date of Service: 08/03/2023 Reason for Consult: I was asked by Dr. Malissa Hernandez to see Vero Henry in regard to a recent diagnosis of EIN/CAH. History of Present Illness ([facility]): 63 y.o.?? * Presented with c/o [...] with myosure * Pathology:?? 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 Anxious, , female with somewhat [...] record:05/23/2019 Last record:05/23/2019; ) Assessment & Plan ([facility]): 63?? y.o. with abnormal uterine bleeding/PMB [...] signed by Abbie Gallo MD 08/03/2023 12:46 [facility]
--- OUTSIDE RECORDS SUMMARY | 2025-07-06 23:18 | XMS_ITS ---
Author Name Interface, [id number] lity Address [address] [facility] [address] [place] [address] [facility] Address [address] [facility] [address] [place] [address] Support Name Relationship Address Phone Greg Henry [facility] [place] See interventional radiology rn d 11/08 [facility] [place] See interventional radiology rn d 11/22 Color (ua) Yellow FINAL Hafsa Bud [place] [facility] [place], [address] [facility] [address] [place] [phone] 0 Phone: () - 11/22 Appea ying (ua) Clear FINAL Hafsaanabel Rubi [facility] - [place], [address] [place] [address] [address] [place] [phone] 0 Phone: () - 11/22 Gluco se (ua), qual 500.0% Abnor mal FINAL Hafsaanabel Rubi [facility] - [place], [address] [place] [address] [address] [place] [phone] Phone: () - 11/22 Bilir ubin (ua) Negativ e FINAL Hafsaanabel Rubi [facility] - [place], [address] [place] [address] [address] [place] [phone] Phone: () - 11/22 Urina lysis , aceto ne or keton e chapo s measu remen t Negativ e FINAL Hafsaanabel Rubi [facility] - [place], [address] [place] [address] [address] [place] [phone] 0 Phone: () - 11/22 Speci fic gravi ty (ua) 1.005 1.02 1.025% Abnor mal FINAL Hafsaanabel Rubi [facility] - [place], [address] [place] [address] [address] [place] [phone] 0 Phone: () - 11/22 Blood (ua) Negativ e FINAL Hafsaanabel Rubi a [facility] - [place], [address] [place] [address] 210 [place] [phone] 0 Phone: () - 11/22 pH (ua) 5.0 8.0 6.0% FINAL Hafsaanabel [place] [facility] - [place], [address] [place] [address] [address] [place] [phone] 0 Phone: () - 11/22 Prote in (ua) Negativ e FINAL Hafsaanabel Rubi a [facility] - [place], [address] [place] [address] 210 [place] [phone] 0 Phone: () - 11/22 Urobi linog en (ua) 0.2 1.0 0.2% FINAL Hafsaanabel [place] [facility] - [place], [address] [place] [address] [facility] [phone] 0 Phone: () - 11/22 Nitri te (ua) Negativ e FINAL Hafsa Rubi a [facility], [address] [place] [address] 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 FINAL Hafsaanabel Farrell [facility] [address] [facility] [id number] 4 12/18 [facility] other lab See d 04/18 Total prote in g/dL 6.3 8.2 6.9 FINAL Marlene Guzmán * [facility], [facility] [address] [place] [address] [id number] 0 04/18 Album in, SPE g/dL 3.31 5.31 3.97 FINAL Marlene Guzmán * [facility], [facility] [address] [place] [address] [id number] 04/18 Alpha -1 globu tony g/dL 0.19 0.42 0.26 FINAL Marlene Guzmán * [facility], [address] [id number] 04/18 Alpha -2 globu tony g/dL 0.44 1.03 0.63 FINAL Marlene Guzmán * [facility], [address] [id number] 0 04/18 Beta globu tony g/dL 0.52 1.05 0.95 FINAL Marlene Guzmán * [facility], [address] [id number] 0 04/18 Gamma globu tony g/dL 0.59 1.46 1.10 FINAL Marlene Guzmán * [facility], [facility] W [address] [place] [address] [id number] 0 04/18 Elect abiola jackson Gemma in Lab resul t note Previou sly identif ied parapro teins detecte d in gamma region. Were 0.3 and 0.4 gm/dL, now 0.3 and 0.3 gm/dL. Interpr eted and signed by Adrienne Swanson MD on 024 FINAL Marlene Guzmán * [facility], [facility] [address] [place] [address] [id number] 0 04/18 M-spi ke, SPE, g/dL g/dL 0.0 0.0 0.3 High FINAL Marlene Guzmán * [facility], [address] [facility] [address] [id number] 04/18 M-spi ke 2, SPE g/dL 0.0 0.0 0.3 High FINAL Marlene Guzmán * [facility], [facility] [address] [place] [address] [id number] 0 04/18 Immun oglob ulin measu remen t IgG, quant mg/dL 610.0 1616.0 946.67 Test performed at [facility] on a Binding Site Optilite Analyzer that uses a turbidime tric method for analysis. Patient testing should not be performed using multiple methodreal gikim due to analytica l variation seen between test methodreal rocha. FINAL Marlene Guzmán * [facility] [address] [place] [address] [id number] 0 04/18 Immun oglob ulin measu remen t IgA, quant mg/dL 61.0 348.0 493.08 High Test performed at [facility] on a Binding Site Optilite Analyzer that uses a turbidime tric method for analysis. Patient testing should not be performed using multiple methodolo gies due to analytica l variation seen between test methodolo gies. FINAL Marlene Stroud [facility] [address] [place] [address] [id number] 04/18 Immun oglob ulin measu remen t IgM, quant mg/dL 35.0 242.0 75.62 Test performed at [facility] on a Binding Site Optilite Analyzer that uses a turbidime tric method for analysis. Patient testing should not be performed using multiple methodolo gies due to analytica l variation seen between test methodolo gies. FINAL Marlene Stroud [facility] a [address] [place] [address] [id number] 0 04/18 Free kappa / lambd a with K/L ratio , serum [place] light chain , free, serum , mg/dL mg/dL 0.33 1.94 3.62 High Test performed at [facility] on a Binding Site Optilite Analyzer that uses a turbidime tric method for analysis. Patient testing should not be performed using multiple methodolo gies due to analytica l variation seen between test methodolo gies. FINAL Marlene Guzmán * Jann a [address] [place] [address] [id number] 0 04/18 Free kappa / lambd a with K/L ratio , serum Lambd a light chain , free, serum , mg/dL mg/dL 0.57 2.63 3.13 High Test performed at [facility] on a Binding Site Optilite Analyzer that uses a turbidime tric method for analysis. Patient testing should not be performed using multiple methodolo gies due to analytica l variation seen between test methodolo gies. FINAL Marlene Stroud [facility] [address] [place] [address] [id number] 0 04/18 Free kappa / lambd a with K/L ratio , serum K/L light chain ratio , free, serum 0.26 1.65 1.16% FINAL Marlene Guzmán * [place] [facility] [place], [address] [facility] [place] [id number] 0 04/18 CBC w/ auto diff WBC K/uL 3.0 8.9 7.0 FINAL Marlene [place] [facility] - [place], [address] [place] [id number] 0 Phone: () - 04/18 CBC w/ auto diff HGB g/dL 11.3 15.2 14.0 FINAL Marlene Rubi a [facility] - [place], [address] [place] [id number] 0 Phone: () - 04/18 CBC w/ auto diff PLT K/uL 113.0 364.0 164 FINAL Marlene Rubi a [facility] - [place], [address] [place] [id number] 0 Phone: () - 04/18 CBC w/ auto diff Tammy # (ANC) K/uL 1.6 6.6 4.5 FINAL Marlene pagan [facility] - [place], [address] [place] [id number] 0 Phone: () - 04/18 CBC w/ auto diff Tammy % % 43.0 74.0 64.0 FINAL Marlene pagan [facility] - [place], [address] [place] [id number] 0 Phone: () - 04/18 CBC w/ auto diff IG % % 0.0 0.5 0.3 FINAL Marlene Rubi a [facility] - [place], [address] [place] [id number] 0 Phone: () - 04/18 CBC w/ auto diff IG # K/uL 0.0 0.03 0.02 FINAL Marlene Rubi a [facility] - [place], [address] [place] [id number] 0 Phone: () - 04/18 CBC w/ auto diff LY % % 14.0 41.0 28.2 FINAL Marlene pagan [facility] - [place], [address] [place] [id number] 0 Phone: () - 04/18 CBC w/ auto diff MO % % 6.0 15.0 6.0 FINAL Marlene pagan [facility] - [place], [address] [place] [id number] 0 Phone: () - 04/18 CBC w/ auto diff EO % % 0.0 7.0 1.1 FINAL Marlene pagan [facility] - [place], [address] [place] [id number] 0 Phone: () - 04/18 CBC w/ auto diff BA % % 0.0 2.0 0.4 FINAL Marlene pagan [facility] - [place], [address] [place] [id number] 0 Phone: () - 04/18 CBC w/ auto diff LY # K/uL 0.4 3.6 2.0 FINAL Marlene pagan [facility] - [place], [address] [place] [id number] 0 Phone: () - 04/18 CBC w/ auto diff MO # K/uL 0.2 1.3 0.4 FINAL Marlene pagan [facility] - [place], [address] [place] [id number] 0 Phone: () - 04/18 CBC w/ auto diff EO # K/uL 0.0 0.6 0.1 FINAL Marlene pagan [facility] - [place], [address] [place] [id number] 0 Phone: () - 04/18 CBC w/ auto diff BA # K/uL 0.0 0.2 0.0 FINAL Marlene pagan [facility] - [place], [address] [place] [id number] 0 Phone: () - 04/18 CBC w/ auto diff NRBC % #/100W BC 0.0 0.2 0.0 FINAL Marlene [place] [facility] - [place], [address] [place] [id number] 0 Phone: () - 04/18 CBC w/ auto diff RBC M/uL 3.9 5.1 4.84 FINAL Marlene [place] [facility] - [place], [address] [place] [id number] 0 Phone: () - 04/18 CBC w/ auto diff HCT % 35.0 48.0 40.4 FINAL Marlene Ramirez [place] [facility] - [place], [address] [place] [id number] 0 Phone: () - 04/18 CBC w/ auto diff MCV fL 80.0 104.0 83.5 FINAL Marlene Ramirez [facility] - [place], [address] [place] [id number] 0 Phone: () - 04/18 CBC w/ auto diff MCH pg 26.0 35.0 28.9 FINAL Marlene Guzmán [facility] - [place], [address] [place] [id number] 0 Phone: () - 04/18 CBC w/ auto diff MCHC g/dL 30.0 35.0 34.7 FINAL Marlene Guzmán [facility] - [place], [address] [place] [id number] 0 Phone: () - 04/18 CBC w/ auto diff MPV fL 9.5 13.4 9.7 FINAL Marlene Guzmán [facility] - [place], [address] [place] [id number] 0 Phone: () - 04/18 CBC w/ auto diff RDW % 11.4 16.1 13.80 FINAL Marlene Guzmán [place] [facility] [place], [address] [facility] [place] [id number] 0 Phone: ( 04/18 CMP Album in g/dL 3.5 5.0 4.0 FINAL Marlene Guzmán * [place] [facility] [place], [address] [facility] [id number] 0 04/18 CMP Alkal ine phosp hatas e U/L 36.0 125.0 105 FINAL Marlene Guzmán * [place] [facility], [address] [facility] [id number] 0 04/18 CMP ALT/S GPT U/L 0.0 34.0 35 High FINAL Marlene Guzmán * [place] [facility], [address] [facility] [id number] 0 04/18 CMP AST/S GOT U/L 14.0 36.0 44 High FINAL Marlene Guzmán * [place] [facility], [address] [facility] [id number] 0 04/18 CMP BUN mg/dL 7.0 17.0 21.0 High FINAL Marlene Guzmán * [place] [facility], [address] [facility] [id number] 0 04/18 CMP Calci um mg/dL 8.4 10.2 8.8 FINAL Marlene Guzmán * [place] [facility], [address] [facility] [id number] 0 04/18 CMP Chlor nilson mmol/L 96.0 107.0 106 FINAL Marlene Guzmán * [place] [facility], [address] [facility] [id number] 0 04/18 CMP CO2 mmol/L 22.0 30.0 [...] 96 hour stability window. FINAL Marlene Stroud [facility], [facility] [address] [id number] 0 04/18 CMP Creat inine mg/dL 0.66 1.25 0.70 FINAL Marlene Guzmán * [facility], [address] [place] [address] [id number] 0 04/18 CMP GFR estim ate ml/min /1.73m ^2 97.7 GFR is calculate d using the CKD-EPI equation. FINAL Marlene Stroud [facility], [facility] [address] [id number] 0 04/18 CMP Gluco se mg/dL 74.0 100.0 267 High FINAL Marlene Stroud [facility], [facility] [address] [place] [address] [id number] 0 04/18 CMP Potas sium mmol/L 3.5 5.1 4.0 FINAL Marlene Stroud [facility], [facility] [address] [id number] 0 04/18 CMP Sodiu m mmol/L 137.0 145.0 136 Low FINAL Marlene Stroud [facility], [facility] [address] [id number] 0 04/18 CMP Bilir ubin, total mg/dL 0.2 1.3 1.0 FINAL Marlene Stroud [facility], [address] [facility] [address] [id number] 0 04/18 CMP Total prote in g/dL 6.3 8.2 7.3 FINAL Marlene Guzmán * [place] [facility] [place], [address] [facility] [address] [id number] 0 04/18 [facility] [place] See interventional radiology rn d 12/20 [facility] lab See interventional radiology rn d 12/20 [facility] other lab See interventional radiology rn d 03/09 Free kappa / lambd a with K/L ratio , serum [place] light chain , free, serum , mg/dL mg/dL 0.33 1.94 4.35 High Test performed at [facility] on a Binding Site Optilite Analyzer that uses a turbidime tric method for analysis. Patient testing should not be performed using multiple methodolo gies due to analytica l variation seen between test methodolo gies. FINAL Marlene Guzmán * [facility] , [address] [facility] [address] [id number] 0 03/09 Free kappa / lambd a with K/L ratio , serum Lambd a light chain , free, serum , mg/dL mg/dL 0.57 2.63 3.83 High Test performed at [facility] on a Binding Site Optilite Analyzer that uses a turbidime tric method for analysis. Patient testing should not be performed using multiple methodolo gies due to analytica l variation seen between test methodolo gies. FINAL Marlene Guzmán * [facility] On[facility] , [address] [facility] [address] [id number] 0 03/09 Free kappa / lambd a with K/L ratio , serum K/L light chain ratio , free, serum 0.26 1.65 1.14% FINAL Marlene Guzmán * [facility] , [address] [facility] [address] [id number] 0 03/09 CMP Album in g/dL 3.5 5.0 3.8 FINAL Marlene Guzmán * [facility] On[facility] , [address] [facility] [id number] 0 03/09 CMP Alkal ine phosp hatas e U/L 36.0 125.0 106 FINAL Marleneanabel Guzmán * [facility] , [address] [facility] [id number] 0 03/09 CMP ALT/S GPT U/L 0.0 34.0 37 High FINAL Marlene Guzmán * [facility] On[facility] , [address] [facility] [id number] 0 03/09 CMP AST/S GOT U/L 14.0 36.0 36 FINAL Marlene Guzmán * [facility] On[facility] , [address] [facility] [id number] 0 03/09 CMP BUN mg/dL 7.0 17.0 18.0 High FINAL Marlene Guzmán * [facility] On[facility] , [address] [facility] [id number] 0 03/09 CMP Calci um mg/dL 8.4 10.2 8.9 FINAL Marleneanabel Guzmán * [facility] On[facility] , [address] [facility] [id number] 0 03/09 CMP Chlor nilson mmol/L 96.0 107.0 99 FINAL Marleneanabel Guzmán * [facility] On[facility] , [address] [facility] [id number] 0 03/09 CMP CO2 mmol/L 22.0 30.0 [...] hour stability window. FINAL Marleneanabel Guzmán * [facility] , [address] [facility] [address] [facility] [id number] 0 03/09 CMP Creat inine mg/dL 0.66 1.25 0.70 FINAL Marleneanabel Guzmán * [facility] , [address] [facility] [address] [facility] [id number] 0 03/09 CMP GFR estim ate ml/min /1.73m ^2 97.1 GFR is calculate d using the CKD-EPI equation. FINAL Marelneanabel Guzmán * [facility] , [address] [facility] [address] [facility] [id number] 0 03/09 CMP Gluco se mg/dL 74.0 100.0 363 Criti sami High FINAL Marlene Guzmán * [facility] , [address] [facility] [address] [facility] [id number] 0 03/09 CMP Potas sium mmol/L 3.5 5.1 3.9 FINAL Marlene Ramirez * [facility] On[facility] , [address] [facility] [address] [facility] [id number] 0 03/09 CMP Sodiu m mmol/L 137.0 145.0 134 Low FINAL Marleneanabel Guzmán * [facility] , [address] [facility] [address] [facility] [id number] 0 03/09 CMP Bilir ubin, total mg/dL 0.2 1.3 1.1 FINAL Marleneanabel Guzmán * [facility] On[facility] , [address] [facility] [address] [facility] [id number] 0 03/09 CMP Total prote in g/dL 6.3 8.2 7.3 FINAL Marlene Guzmán * [facility] On[facility] , [address] [facility] [address] [facility] [id number] 0 03/09 CBC w/ auto diff WBC K/uL 3.0 8.9 7.1 FINAL Marlene Guzmán [place] [facility] , [address] [place] [id number] 0 03/09 CBC w/ auto diff HGB g/dL 11.3 15.2 14.4 FINAL Marlene Guzmán [place] [facility] , [address] [place] [id number] 0 03/09 CBC w/ auto diff PLT K/uL 113.0 364.0 179 FINAL Marlene Guzmán [place] [facility] , [address] [place] [id number] 0 03/09 CBC w/ auto diff Tammy # (ANC) K/uL 1.6 6.6 4.7 FINAL Marlene Guzmán [facility] [place] [facility] , [address] [place] [id number] 0 03/09 CBC w/ auto diff Tammy % % 43.0 74.0 65.7 FINAL Marlene Guzmán [place] [facility] , [address] [place] [id number] 0 03/09 CBC w/ auto diff IG % % 0.0 0.5 0.6 High FINAL Marlene Guzmán [place] [facility] , [address] [place] [id number] 0 03/09 CBC w/ auto diff IG # K/uL 0.0 0.03 0.04 High FINAL Marlene Guzmán [place] [facility] , [address] [place] [id number] 0 03/09 CBC w/ auto diff LY % % 14.0 41.0 25.8 FINAL Marlene Guzmán [place] [facility] , [address] [place] [id number] 0 03/09 CBC w/ auto diff MO % % 6.0 15.0 6.2 FINAL Marlene Guzmán [place] [facility] , [address] [place] [id number] 0 03/09 CBC w/ auto diff EO % % 0.0 7.0 1.1 FINAL Marlene Guzmán [place] [facility] , [address] [place] [id number] 0 03/09 CBC w/ auto diff BA % % 0.0 2.0 0.6 FINAL Marlene Guzmán [place] [facility] , [address] [place] [id number] 0 03/09 CBC w/ auto diff LY # K/uL 0.4 3.6 1.8 FINAL Marlene Guzmán [place] [facility] , [address] [place] [id number] 0 03/09 CBC w/ auto diff MO # K/uL 0.2 1.3 0.4 FINAL Marlene Guzmán [place] [facility] , [address] [place] [id number] 0 03/09 CBC w/ auto diff EO # K/uL 0.0 0.6 0.1 FINAL Marlene Guzmán [place] [facility] , [address] [place] [id number] 0 03/09 CBC w/ auto diff BA # K/uL 0.0 0.2 0.0 FINAL Marlene Guzmán [place] [facility] , [address] [place] [id number] 0 03/09 CBC w/ auto diff NRBC % #/100W BC 0.0 0.2 0.0 FINAL Marlene Guzmán [place] [facility] , [address] [place] [id number] 0 03/09 CBC w/ auto diff RBC M/uL 3.9 5.1 5.08 FINAL Marlene Guzámn [place] [facility] , [address] [place] [id number] 0 03/09 CBC w/ auto diff HCT % 35.0 48.0 42.9 FINAL Marlene Guzmán [facility] [place] [facility] , [address] [place] [id number] 0 03/09 CBC w/ auto diff MCV fL 80.0 104.0 84.4 FINAL Marlene Guzmán [facility] [place] [facility] , [address] [place] [id number] 0 03/09 CBC w/ auto diff MCH pg 26.0 35.0 28.3 FINAL Marlene Guzmán [facility] [place] [facility] , [address] [place] [id number] 0 03/09 CBC w/ auto diff MCHC g/dL 30.0 35.0 33.6 FINAL Marlene Guzmán [facility] [place] [facility] , [address] [place] [id number] 0 03/09 CBC w/ auto diff MPV fL 9.5 13.4 9.6 FINAL Marlene Guzmán [place] [facility] , [address] [place] [id number] 0 03/09 CBC w/ auto diff RDW % 11.4 16.1 14.20 FINAL Marlene Guzmán [facility] Oncology , [address] [facility] [id number] 0 03/09 Total prote in g/dL 6.3 8.2 7.1 FINAL Marlene Guzmán * [facility] On[facility] , [address] [facility] [address] [facility] [id number] 0 03/09 Album in, SPE g/dL 3.31 5.31 4.70 FINAL Marlene Guzmán * [facility] Oncology , [address] [facility] [address] [id number] 0 03/09 Alpha -1 globu tony g/dL 0.19 0.42 0.23 FINAL Marlene Guzmán * [facility] , [address] [facility] [address] [id number] 0 03/09 Alpha -2 globu tony g/dL 0.44 1.03 0.52 FINAL Marlene Guzmán * [facility] , [address] [facility] [address] [id number] 0 03/09 Beta globu tony g/dL 0.52 1.05 0.80 FINAL Marlene Guzmán * [facility] , [address] [facility] [address] [id number] 0 03/09 Gamma globu tony g/dL 0.59 1.46 0.85 FINAL Marlene Guzmán * [facility] On[facility] , [address] [facility] [address] [id number] 0 03/09 Gemma Rodriguez in Lab resul t note Previou sly identif ied parapro teins detecte d in gamma region. Is now 0.3 and 0.4 gm/dL. Interpr eted and signed by Luis Guillermo MD on 025 FINAL Marlene Guzmán * [facility] , [address] [facility] [id number] 0 03/09 M-spi ke, SPE, g/dL g/dL 0.0 0.0 0.3 High FINAL Marlene Guzmán * [facility] On[facility] , [address] [facility] [id number] 0 03/09 M-spi ke 2, SPE g/dL 0.0 0.0 0.4 High FINAL Marlene Guzmán * [facility] , [address] [facility] [id number] 0 03/09 Immun oglob ulin measu remen t IgG, quant mg/dL 610.0 1616.0 1080.49 Test performed at [facility] on a Binding Site Optilite Analyzer that uses a turbidime tric method for analysis. Patient testing should not be performed using multiple methodolo gies due to analytica l variation seen between test methodolo gies. FINAL Marlene Guzmán * [facility] , [address] [facility] [id number] 0 03/09 Immun oglob ulin measu remen t IgA, quant mg/dL 61.0 348.0 577.26 High Test performed at [facility] on a Binding Site Optilite Analyzer that uses a turbidime tric method for analysis. Patient testing should not be performed using multiple methodolo gies due to analytica l variation seen between test methodolo gies. FINAL Marlene Guzmán * [facility] , [address] [facility] [id number] 0 03/09 Immun oglob ulin measu remen t IgM, quant mg/dL 35.0 242.0 91.00 Test performed at [facility] on a Binding Site Optilite Analyzer that uses a turbidime tric method for analysis. Patient testing should not be performed using multiple methodolo gies due to analytica l variation seen between test methodolo josefina. FINAL Marlene Guzmán * 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 Malissa Hernandez to see Vero Henry in regard to a recent diagnosis of EIN/CAH. History of Present Illness ([employer]): 63 y.o.?? * Presented with c/o [...] with myosure * Pathology:?? 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 Anxious, , female with somewhat [...] record:05/23/2019 Last record:05/23/2019; ) Assessment & Plan ([employer]): 63?? y.o. 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
--- OUTSIDE RECORDS SUMMARY | 2025-07-06 23:18 | XMS_ITS ---
Author Name Interface, [id number] lity Address [address] [facility] [address] [place] [address] [facility] Address [address] [facility] [address] [place] [address] Support Name Relationship Address Phone Greg Henry [...] Ordered By Specimen Source Lab Address 11/05 [facility] other lab See supervisor forming and tempering d 11/08 Mis other lab See supervisor forming and tempering d 11/22 Color (ua) Yellow FINAL [facility] [place], [address] [facility] [address] [place] [phone] 0 Phone: () - 11/22 Appea ying (ua) Clear FINAL [facility] [place], [address] [facility] [address] [place] [phone] 0 Phone: () - 11/22 Gluco se (ua), qual 500.0% Abnor mal FINAL [facility] [place], [address] [facility] [address] [place] [phone] 0 Phone: () - 11/22 Bilir ubin (ua) Negativ e FINAL [facility] [place], [address] [facility] [address] [place] [phone] 0 Phone: () - 11/22 Urina lysis , aceto ne or keton e chapo s measu remen t Negativ e FINAL [facility] [place], [address] [facility] [address] [place] [phone] 0 Phone: () - 11/22 Speci fic gravi ty (ua) 1.005 1.02 1.025% Abnor mal FINAL [facility] [place], [address] [facility] [address] [place] [phone] 0 Phone: () - 11/22 Blood (ua) Negativ e FINAL [facility] [place], [address] [facility] [address] [place] [phone] 0 Phone: () - 11/22 pH (ua) 5.0 8.0 6.0% FINAL [facility] [place], [address] [facility] [address] [place] [phone] 0 Phone: () - 11/22 Prote in (ua) Negativ e FINAL [facility] [place], [address] [place] [address] [address] [place] [phone] 0 Phone: () - 11/22 Urobi linog en (ua) 0.2 1.0 0.2% FINAL [facility] [place], [address] [place] [address] [address] [place] [phone] 0 Phone: () - 11/22 Nitri te (ua) Negativ e FINAL [facility] [place], [address] [facility] [address] [place] [phone] 0 Phone: () - 11/22 Leuko cyte jerson ase (ua), qual Negativ e FINAL [facility] [place], [address] [facility] [address] [place] [phone] 0 Phone: () - 11/22 UA comme nt 1 Dipstic k negativ e- Culture ordered per provide r FINAL [facility] [place], [address] [facility] [address] [facility] [id number] 0 Phone: () - 11/22 Urine cultu re panel CULTU RE, URINE , ROUTI NE SEE NOTE Abnor mal CULTURE, URINE, ROUTINEMi microfilm equipment inspector Number: [id number] est Status: FinalSpec imen Source: UrineSpec imen [...] f. FINAL Hafsa Farrell [facility] [address] [facility] [id number] 4 12/18 [facility] other lab See supervisor forming and tempering d 04/18 Total prote in g/dL 6.3 8.2 6.9 FINAL Marlene Ramirez * [facility], [address] [id number] 0 04/18 Album in, SPE g/dL 3.31 5.31 3.97 FINAL Marlene Guzmán * [facility], [address] [id number] 0 04/18 Alpha -1 globu tony g/dL 0.19 0.42 0.26 FINAL Marlene Guzmán * [facility], [address] [id number] 0 04/18 Alpha -2 globu tony g/dL 0.44 1.03 0.63 FINAL Marlene Guzmán * [facility], [address] [id number] 0 04/18 Beta globu tony g/dL 0.52 1.05 0.95 FINAL Marlene Ramirez * [facility], [address] [id number] 0 04/18 Gamma globu tony g/dL 0.59 1.46 1.10 FINAL Marlene Guzmán * [facility], [address] [id number] 0 04/18 Gemma Rodriguez in Lab resul t note Previou sly identif ied parapro teins detecte d in gamma region. Were 0.3 and 0.4 gm/dL, now 0.3 and 0.3 gm/dL. Interpr eted and signed by Adrienne Swanson MD on 024 FINAL Marlene Guzmán * [facility], [address] [facility] [address] [id number] 0 04/18 M-spi ke, SPE, g/dL g/dL 0.0 0.0 0.3 High FINAL Marlene Guzmán * [facility], [address] [facility] [address] [id number] 0 04/18 M-spi ke 2, SPE g/dL 0.0 0.0 0.3 High FINAL Marleneanabel Guzmán * [facility], [facility] [address] [place] [address] [id number] 0 04/18 Immun oglob ulin measu remen t IgG, quant mg/dL 610.0 1616.0 946.67 Test performed at [facility] on a Binding Tower59 Optilite Analyzer that uses a turbidime tric method for analysis. Patient testing should not be performed using multiple methodolo gies due to analytica l variation seen between test methodolo gies. FINAL Marlene[facility]abel Guzmán * [facility] [address] [place] [address] [id number] 0 04/18 Immun oglob ulin measu remen t IgA, quant mg/dL 61.0 348.0 493.08 High Test performed at [facility] on a Binding Tower59 Optilite Analyzer that uses a turbidime tric method for analysis. Patient testing should not be performed using multiple methodolo gies due to analytica l variation seen between test methodolo gies. FINAL Marlene Guzmán * [facility], [address] [place] [address] [address] [place] [address] [id number] 0 04/18 Immun oglob ulin measu remen t IgM, quant mg/dL 35.0 242.0 75.62 Test performed at [facility] on a Binding Site Optilite Analyzer that uses a turbidime tric method for analysis. Patient testing should not be performed using multiple methodolo gies due to analytica l variation seen between test methodolo gies. FINAL Marlene Forte [facility], [facility] [address] [id number] 0 04/18 Free kappa / lambd a with K/L ratio , serum [place] light chain , free, serum , mg/dL mg/dL 0.33 1.94 3.62 High Test performed at [facility] on a Binding Site Optilite Analyzer that uses a turbidime tric method for analysis. Patient testing should not be performed using multiple methodolo gies due to analytica l variation seen between test methodolo gies. FINAL Marlene Rubi a [facility], [address] [facility] [address] [id number] 0 04/18 Free kappa / lambd a with K/L ratio , serum Lambd a light chain , free, serum , mg/dL mg/dL 0.57 2.63 3.13 High Test performed at [facility] on a Binding Tower59 Optilite Analyzer that uses a turbidime tric method for analysis. Patient testing should not be performed using multiple methodolo gies due to analytica l variation seen between test methodolo gies. FINAL Marlene Rubi a [facility], [address] [id number] 0 04/18 Free kappa / lambd a with K/L ratio , serum K/L light chain ratio , free, serum 0.26 1.65 1.16% FINAL Marlene [facility], [address] [id number] 0 04/18 CBC w/ auto diff WBC K/uL 3.0 8.9 7.0 FINAL Marlene Rubi [facility], [address] [facility] [address] [facility] [id number] 0 Phone: () - 04/18 CBC w/ auto diff HGB g/dL 11.3 15.2 14.0 FINAL [facility] [place], [address] [place] [id number] 0 Phone: () - 04/18 CBC w/ auto diff PLT K/uL 113.0 364.0 164 FINAL Marlene [facility] - [place], [address] [place] [id number] 0 Phone: () - 04/18 CBC w/ auto diff Tammy # (ANC) K/uL 1.6 6.6 4.5 FINAL Marlene [facility] - [place], [address] [place] [id number] 0 Phone: () - 04/18 CBC w/ auto diff Tammy % % 43.0 74.0 64.0 FINAL [facility] - [place], [address] [place] [id number] 0 Phone: () - 04/18 CBC w/ auto diff IG % % 0.0 0.5 0.3 FINAL Marlnee [facility] - [place], [address] [place] [id number] 0 Phone: () - 04/18 CBC w/ auto diff IG # K/uL 0.0 0.03 0.02 FINAL Marlene [facility] - [place], [address] [place] [id number] 0 Phone: () - 04/18 CBC w/ auto diff LY % % 14.0 41.0 28.2 FINAL Marlene Rubi [facility] - [place], [address] [place] [id number] 0 Phone: () - 04/18 CBC w/ auto diff MO % % 6.0 15.0 6.0 FINAL Marlene Guzmán [facility] - [place], [address] [place] [id number] 0 Phone: () - 04/18 CBC w/ auto diff EO % % 0.0 7.0 1.1 FINAL Mar[facility] - [place], [address] [place] [id number] 0 Phone: () - 04/18 CBC w/ auto diff BA % % 0.0 2.0 0.4 FINAL [facility] - [place], [address] [place] [id number] 0 Phone: () - 04/18 CBC w/ auto diff LY # K/uL 0.4 3.6 2.0 FINAL Marlene Guzmán [facility] [place], [address] [place] [id number] 0 Phone: () - 04/18 CBC w/ auto diff MO # K/uL 0.2 1.3 0.4 FINAL Marlene Ramirez [facility] [place], [address] [place] [id number] 0 Phone: () - 04/18 CBC w/ auto diff EO # K/uL 0.0 0.6 0.1 FINAL Marlene Ramirez [facility] [place], [address] [place] [id number] 0 Phone: () - 04/18 CBC w/ auto diff BA # K/uL 0.0 0.2 0.0 FINAL Marlene Ramirez [facility] [place], [address] [place] [id number] 0 Phone: () - 04/18 CBC w/ auto diff NRBC % #/100W BC 0.0 0.2 0.0 FINAL Marlene Guzmán [facility] - [place], [address] [place] [id number] 0 Phone: () - 04/18 CBC w/ auto diff RBC M/uL 3.9 5.1 4.84 FINAL Marlene Guzmán [facility] - [place], [address] [place] [id number] 0 Phone: () - 04/18 CBC w/ auto diff HCT % 35.0 48.0 40.4 FINAL Marlene Rubi a [facility] - [place], [address] [place] [id number] 0 Phone: () - 04/18 CBC w/ auto diff MCV fL 80.0 104.0 83.5 FINAL Marlene [facility] - [place], [address] [place] [id number] 0 Phone: () - 04/18 CBC w/ auto diff MCH pg 26.0 35.0 28.9 FINAL Marlene Rubi a [facility] - [place], [address] [place] [id number] 0 Phone: () - 04/18 CBC w/ auto diff MCHC g/dL 30.0 35.0 34.7 FINAL Marlene Rubi a [facility] - [place], [address] [place] [id number] 0 Phone: () - 04/18 CBC w/ auto diff MPV fL 9.5 13.4 9.7 FINAL Marlene Rubi [facility] - [place], [address] [place] [id number] 0 Phone: () - 04/18 CBC w/ auto diff RDW % 11.4 16.1 13.80 FINAL Marlene [facility]i [facility] - [place], [address] [place] [id number] 0 Phone: () - 04/18 CMP Album in g/dL 3.5 5.0 4.0 FINAL Marlene Guzmán * [facility] [place], [address] [place] [id number] 0 04/18 CMP Alkal ine phosp hatas e U/L 36.0 125.0 105 FINAL Marlene Guzmán * [facility] [place], [address] [facility] [id number] 0 04/18 CMP ALT/S GPT U/L 0.0 34.0 35 High FINAL Marlene Guzmán * [facility], [address] [facility] [id number] 0 04/18 CMP AST/S GOT U/L 14.0 36.0 44 High FINAL Marlene Guzmán * [facility], [address] [facility] [id number] 0 04/18 CMP BUN mg/dL 7.0 17.0 21.0 High FINAL Marlene Guzmán * [facility], [address] [facility] [id number] 0 04/18 CMP Calci um mg/dL 8.4 10.2 8.8 FINAL Marlene Guzmán * [facility], [address] [facility] [id number] 0 04/18 CMP Chlor nilson mmol/L 96.0 107.0 106 FINAL Marlene Guzmán * [facility], [address] [facility] [id number] 0 04/18 CMP CO2 mmol/L 22.0 30.0 [...] hour stability window. FINAL Marlene Guzmán * [facility], [address] [facility] [id number] 0 04/18 CMP Creat inine mg/dL 0.66 1.25 0.70 FINAL Marlene Guzmán * [facility], [address] [facility] [address] [id number] 0 04/18 CMP GFR estim ate ml/min /1.73m ^2 97.7 GFR is calculate d using the CKD-EPI equation. FINAL [facility]lene Stroud [facility], [address] [facility] [address] [id number] 0 04/18 CMP Gluco se mg/dL 74.0 100.0 267 High FINAL Marlene Guzmán * [facility] [address] [id number] 0 04/18 CMP Potas sium mmol/L 3.5 5.1 4.0 FINAL Marlene Guzmán * [facility], [address] [facility] [address] [id number] 0 04/18 CMP Sodiu m mmol/L 137.0 145.0 136 Low FINAL Marlene Guzmán * [facility], [address] [facility] [address] [id number] 0 04/18 CMP Bilir ubin, total mg/dL 0.2 1.3 1.0 FINAL Marlene Guzmán * [facility], [address] [facility] [address] [id number] 0 04/18 CMP Total prote in g/dL 6.3 8.2 7.3 FINAL Marlene Guzmán * [facility], [address] [facility] [address] [id number] 0 04/18 [facility] other lab See supervisor forming and tempering d 12/20 Mis other lab See supervisor forming and tempering d 12/20 [facility] other lab See supervisor forming and tempering d 03/09 Free kappa / lambd a with K/L ratio , serum [place] light chain , free, serum , mg/dL mg/dL 0.33 1.94 4.35 High Test performed at [facility] on a Binding Site Optilite Analyzer that uses a turbidime tric method for analysis. Patient testing should not be performed using multiple methodolo gies due to analytica l variation seen between test methodolo gies. FINAL Marlene Guzmán * [facility] , [address] [facility] [address] [facility] [id number] 0 03/09 Free kappa / lambd a with K/L ratio , serum Lamb[place] light chain , free, serum , mg/dL mg/dL 0.57 2.63 3.83 High Test performed at [facility] on a Binding Site Optilite Analyzer that uses a turbidime tric method for analysis. Patient testing should not be performed using multiple methodolo gies due to analytica l variation seen between test methodolo gies. FINAL Marlene Guzmán * [facility] , [address] [facility] [address] [id number] 0 03/09 Free kappa / lambd a with K/L ratio , serum K/L light chain ratio , free, serum 0.26 1.65 1.14% FINAL Marlene Guzmán * [facility] , [address] [facility] [address] [id number] 0 03/09 CMP Album in g/dL 3.5 5.0 3.8 FINAL Marlene Guzmán * [facility] , [address] [facility] [address] [id number] 0 03/09 CMP Alkal ine phosp hatas e U/L 36.0 125.0 106 FINAL Marlene Guzmán * [facility] , [address] [facility] [address] [facility] [id number] 0 03/09 CMP ALT/S GPT U/L 0.0 34.0 37 High FINAL Marlene Guzmán * [facility] , [address] [facility] [id number] 0 03/09 CMP AST/S GOT U/L 14.0 36.0 36 FINAL Marlene Guzmán * [facility] , [address] [facility] [id number] 0 03/09 CMP BUN mg/dL 7.0 17.0 18.0 High FINAL Marlene Guzmán * [facility] , [address] [facility] [id number] 0 03/09 CMP Calci um mg/dL 8.4 10.2 8.9 FINAL Marlene Guzmán * [facility] , [address] [facility] [id number] 0 03/09 CMP Chlor nilson mmol/L 96.0 107.0 99 FINAL Marlene Guzmán * [facility] , [address] [facility] [id number] 0 03/09 CMP CO2 mmol/L 22.0 30.0 [...] hour stability window. FINAL Marleneanabel Guzmán * [facility] , [address] [facility] [id number] 0 03/09 CMP Creat inine mg/dL 0.66 1.25 0.70 FINAL Marlene Guzmán * [facility] , [address] [facility] [id number] 0 03/09 CMP GFR estim ate ml/min /1.73m ^2 97.1 GFR is calculate d using the CKD-EPI equation. FINAL Marlene Ramirez * [facility] , [address] [facility] [id number] 0 03/09 CMP Gluco se mg/dL 74.0 100.0 363 Criti sami High FINAL Marlene Ramirez * [facility] , [address] [facility] [id number] 0 03/09 CMP Potas sium mmol/L 3.5 5.1 3.9 FINAL Marlene Ramirez * [facility] , [address] [facility] [id number] 0 03/09 CMP Sodiu m mmol/L 137.0 145.0 134 Low FINAL Marlene Ramirez * [facility] , [address] [facility] [id number] 0 03/09 CMP Bilir ubin, total mg/dL 0.2 1.3 1.1 FINAL Marlene Ramirez * [facility] , [address] [facility] [id number] 0 03/09 CMP Total prote in g/dL 6.3 8.2 7.3 FINAL Marlene Guzmán * [facility] , [address] [facility] [id number] 0 03/09 CBC w/ auto diff WBC K/uL 3.0 8.9 7.1 FINAL Marlene Guzmán [place] [facility] [place] [facility] , [address] [place] [id number] 0 03/09 CBC w/ auto diff HGB g/dL 11.3 15.2 14.4 FINAL Marlene Guzmán [place] [facility] [place] [facility] , [address] [place] [id number] 0 03/09 CBC w/ auto diff PLT K/uL 113.0 364.0 179 FINAL Marlene Guzmán [place] [facility] [place] [facility] , [address] [place] [id number] 0 03/09 CBC w/ auto diff Tammy # (ANC) K/uL 1.6 6.6 4.7 FINAL Marlene Guzmán [place] [facility] [place] [facility] , [address] [place] [id number] 0 03/09 CBC w/ auto diff Tammy % % 43.0 74.0 65.7 FINAL Marlene Guzmán [place] [facility] [place] [facility] , [address] [place] [id number] 0 03/09 CBC w/ auto diff IG % % 0.0 0.5 0.6 High FINAL Marlene Guzmán [place] [facility] [place] [facility] , [address] [place] [id number] 0 03/09 CBC w/ auto diff IG # K/uL 0.0 0.03 0.04 High FINAL Marlene Guzmán [place] [facility] [place] [facility] , [address] [place] [id number] 0 03/09 CBC w/ auto diff LY % % 14.0 41.0 25.8 FINAL Marlene Guzmán [place] [facility] [place] [facility] , [address] [place] [id number] 0 03/09 CBC w/ auto diff MO % % 6.0 15.0 6.2 FINAL Marlene Guzmán [place] [facility] [place] [facility] , [address] [place] [id number] 0 03/09 CBC w/ auto diff EO % % 0.0 7.0 1.1 FINAL Marlene Guzmán [place] [facility] [place] [facility] , [address] [place] [id number] 0 03/09 CBC w/ auto diff BA % % 0.0 2.0 0.6 FINAL Marlene Guzmán [place] [facility] [place] [facility] , [address] [place] [id number] 0 03/09 CBC w/ auto diff LY # K/uL 0.4 3.6 1.8 FINAL Marlene Guzmán [place] [facility] [place] [facility] , [address] [place] [id number] 0 03/09 CBC w/ auto diff MO # K/uL 0.2 1.3 0.4 FINAL Marlene Guzmán [place] [facility] [place] [facility] , [address] [place] [id number] 0 03/09 CBC w/ auto diff EO # K/uL 0.0 0.6 0.1 FINAL Marlene Guzmán [place] [facility] [place] [facility] , [address] [place] [id number] 0 03/09 CBC w/ auto diff BA # K/uL 0.0 0.2 0.0 FINAL Marlene Guzmán [place] [facility] [place] [facility] , [address] [place] [id number] 0 03/09 CBC w/ auto diff NRBC % #/100W BC 0.0 0.2 0.0 FINAL Marlene Guzmán [place] [facility] [place] [facility] , [address] [place] [id number] 0 03/09 CBC w/ auto diff RBC M/uL 3.9 5.1 5.08 FINAL Marlene Guzmán [place] [facility] [place] [facility] , [address] [place] [id number] 0 03/09 CBC w/ auto diff HCT % 35.0 48.0 42.9 FINAL Marlene Guzmán [place] [facility] [place] [facility] , [address] [place] [id number] 0 03/09 CBC w/ auto diff MCV fL 80.0 104.0 84.4 FINAL Marlene Guzmán [place] [facility] [place] [facility] , [address] [place] [id number] 0 03/09 CBC w/ auto diff MCH pg 26.0 35.0 28.3 FINAL Marlene Guzmán [place] [facility] [place] [facility] , [address] [place] [id number] 0 03/09 CBC w/ auto diff MCHC g/dL 30.0 35.0 33.6 FINAL Marlene Guzmán [place] [facility] [place] [facility] , [address] [place] [id number] 0 03/09 CBC w/ auto diff MPV fL 9.5 13.4 9.6 FINAL Marlene Guzmán [place] [facility] [place] [facility] , [address] [place] [id number] 0 03/09 CBC w/ auto diff RDW % 11.4 16.1 14.20 FINAL Marlene Guzmán [place] [facility] [place] [facility] , [address] [place] [id number] 0 03/09 Total prote in g/dL 6.3 8.2 7.1 FINAL Marlene Guzmán * [place] [facility] [place] [facility] , [address] [place] [id number] 0 03/09 Album in, SPE g/dL 3.31 5.31 4.70 FINAL Marlene Guzmán * [facility] , [address] [facility] [address] [id number] 0 03/09 Alpha -1 globu tony g/dL 0.19 0.42 0.23 FINAL Marlene Guzmán * [facility] , [address] [address] [facility] [id number] 0 03/09 Alpha -2 globu tony g/dL 0.44 1.03 0.52 FINAL Marlene Guzmán * [facility] , [address] [facility] [address] [id number] 0 03/09 Beta globu tony g/dL 0.52 1.05 0.80 FINAL Marlene Guzmán * [facility] , [address] [facility] [address] [id number] 0 03/09 Gamma globu tony g/dL 0.59 1.46 0.85 FINAL Marlene Guzmán * [facility] , [address] [facility] [address] [id number] 0 03/09 Elect Gemma layton in Lab resul t note Previou sly identif ied parapro teins detecte d in gamma region. Is now 0.3 and 0.4 gm/dL. Interpr eted and signed by Luis Guillermo MD on 025 FINAL Marlene Guzmán * [facility] , [address] [facility] [id number] 0 03/09 M-spi ke, SPE, g/dL g/dL 0.0 0.0 0.3 High FINAL Marlene Guzmán * [facility] , [address] [id number] 0 03/09 M-spi ke 2, SPE g/dL 0.0 0.0 0.4 High FINAL Marlene Guzmán * [facility] , [address] [facility] [id number] 0 03/09 Immun oglob ulin measu remen t IgG, quant mg/dL 610.0 1616.0 1080.49 Test performed at [facility] on a Binding Site Optilite Analyzer that uses a turbidime tric method for analysis. Patient testing should not be performed using multiple methodolo gies due to analytica l variation seen between test methodolo gies. FINAL Marlene Ramirez * [facility] , [address] [facility] [id number] 0 03/09 Immun oglob ulin measu remen t IgA, quant mg/dL 61.0 348.0 577.26 High Test performed at [facility] on a Binding Site Optilite Analyzer that uses a turbidime tric method for analysis. Patient testing should not be performed using multiple methodolo gies due to analytica l variation seen between test methodolo gies. FINAL Marlene Ramirez * [facility] , [address] [facility] [id number] 0 03/09 Immun oglob ulin measu remen t IgM, quant mg/dL 35.0 242.0 91.00 Test performed at [facility] on a Binding Site Optilite Analyzer that uses a turbidime tric method for analysis. Patient testing should not be performed using multiple methodolo gies due to analytica l variation seen between test methodolo gies. FINAL Marlene Guzmán * [facility] , [address] [facility] [id number] 0 04/03 [facility] other lab See attache malave Medications Date [...] 04/10/2025 Pain Scale 7.00 Notes Section * LOGISTICS PLANNER Follow-Up GYNECOLOGIC ONCOLOGY FOLLOW-UP VISIT Patient Name: JOSE ANGEL HENRY : 1960 Date of Visit: 10/11/2023 Referring Provider: Malissa Hernandez MD (FLORIST) Attending: Marlene Guzmán (Hematology/Oncology) Chief Complaint ([facility]): 6 week post op?? History of Present Illness ([facility]): 63 y.o.?? 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 Genetic Testing ([facility]): Interval History ([facility]) She was transferred from [facility] to [facility] after surgery from 09/03-09/09/23.?? [...] Hysteroscopy with myosure, D & C 06/28/23 chucker History: - 3 , 1 SAb Allergies: [...] Methocarbamol Oral 500 mg tablet prn * [employer] (Hydrocodone-Acetaminophen Oral 5 mg-325 mg) 5-325 mg [...] BSA: 2.36, BMI: 47.71 kg/m2 Physical Exam ([facility]): General:?? Anxious, , female with somewhat [...] record:05/23/2019 Last record:05/23/2019; ) Assessment & Plan ([facility]): 63?? y.o. 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 Pathology benign. Reviewedpathology, operative findings, expected recovery.?? She is recovering well, no further restrictions.?? She can follow up with PCP/compliance associate as needed.? 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
--- OUTSIDE RECORDS SUMMARY | 2025-07-06 23:19 | XMS_ITS ---
Author Name Interface, [id number] lity Address [address] [facility] [address] [place] [address] [facility] Address [address] [facility] [address] [place] [address] Support Name Relationship Address Phone Greg Ch [...] FINAL [facility] [place], [address] [place] [address] 210 [facility] [phone] Phone: () - 11/22 Appea ying (ua) Clear FINAL [facility] [place], [address] [place] [address] 210 [facility] [phone] Phone: () - 11/22 Gluco se (ua), qual 500.0% Abnor mal FINAL [facility] [place], [address] [facility] 210 [facility] [phone] Phone: () - 11/22 Bilir ubin (ua) Negativ e FINAL [facility] [place], [address] [place] [address] 210 [facility] [phone] Phone: () - 11/22 Urina lysis , aceto ne or keton e chapo s measu remen t Negativ e FINAL [facility] [place], [address] [facility] 210 [place] [phone] 0 Phone: () - 11/22 Speci fic gravi ty (ua) 1.005 1.02 1.025% Abnor mal FINAL [facility] [place], [address] [facility] 210 [place] [phone] 0 Phone: () - 11/22 Blood (ua) Negativ e FINAL [facility] [place], [address] [place] [address] 210 [place] [phone] 0 Phone: () - 11/22 pH (ua) 5.0 8.0 6.0% FINAL [facility] [place], [address] [place] [address] 210 [facility] [phone] Phone: () - 11/22 Prote in (ua) Negativ e FINAL [facility] [place], [address] [place] [address] 210 [place] [phone] Phone: () - 11/22 Urobi linog en (ua) 0.2 1.0 0.2% FINAL [facility] [place], [address] [place] [address] 210 [place] [phone] 0 Phone: () - 11/22 Nitri te (ua) Negativ e FINAL [facility] [place], [address] [place] [address] 210 [place] [phone] 0 Phone: () - 11/22 Leuko cyte jerson ase (ua), qual Negativ e FINAL [facility]sa [facility] [place], [address] [place] [address] 210 [place] [phone] Phone: () - 11/22 UA comme nt 1 Dipstic k negativ e- Culture ordered per provide r FINAL [facility] [place], [address] [place] [address] 210 [place] [phone] Phone: () - 11/22 Urine cultu re panel CULTU RE, URINE , ROUTI NE SEE NOTE Abnor mal CULTURE, URINE, ROUTINEMi crown presser Number: [id number] est Status: FinalSpec imen Source: UrineSpec imen [...] f. FINAL Hafsa Bud [facility], [facility] [address] [facility] [phone] 4 12/18 [facility] other lab See chainstitch elastic attacher d 04/18 Total prote in g/dL 6.3 8.2 6.9 FINAL Marlene Guzmán * [facility], [address] [facility] [address] [place] [address] [id number] 04/18 Album in, SPE g/dL 3.31 5.31 3.97 FINAL Marlene Guzmán * [facility], [facility] [address] [place] [address] [id number] 04/18 Alpha -1 globu tony g/dL 0.19 0.42 0.26 FINAL Marlene Guzmán * [facility], [facility] [address] [place] [address] [id number] 04/18 Alpha -2 globu tony g/dL 0.44 1.03 0.63 FINAL Marlene Guzmán * [facility], [facility] [address] [place] [address] [id number] 0 04/18 Beta globu tony g/dL 0.52 1.05 0.95 FINAL Marlene Guzmán * [facility], [address] [facility] [address] [place] [address] [id number] 0 04/18 Gamma globu tony g/dL 0.59 1.46 1.10 FINAL Marlene Guzmán * [facility], [address] [facility] [address] [place] [address] [id number] 0 04/18 Elect Gemma layton in Lab resul t note Previou sly identif ied parapro teins detecte d in gamma region. Were 0.3 and 0.4 gm/dL, now 0.3 and 0.3 gm/dL. Interpr eted and signed by Adrienne Swanson MD on 024 FINAL Marlene Guzmán * [facility], [facility] [address] [place] [address] [id number] 0 04/18 M-spi ke, SPE, g/dL g/dL 0.0 0.0 0.3 High FINAL Marleneanabel Guzmán * [facility], [address] [facility] [id number] 0 04/18 M-spi ke 2, SPE g/dL 0.0 0.0 0.3 High FINAL Marlene Guzmán * [facility], [address] [facility] [address] [facility] [id number] 0 04/18 Immun oglob ulin measu remen t IgG, quant mg/dL 610.0 1616.0 946.67 Test performed at [facility] on a Binding Site Optilite Analyzer that uses a turbidime tric method for analysis. Patient testing should not be performed using multiple methodolo gies due to analytica l variation seen between test methodolo gies. FINAL Marlene Guzmán * [facility], [address] [id number] 0 04/18 Immun oglob ulin measu remen t IgA, quant mg/dL 61.0 348.0 493.08 High Test performed at [facility] on a Binding Site Optilite Analyzer that uses a turbidime tric method for analysis. Patient testing should not be performed using multiple methodolo gies due to analytica l variation seen between test methodolo gies. FINAL Marlene Guzmán * [facility], [address] [id number] 0 04/18 Immun oglob ulin measu remen t IgM, quant mg/dL 35.0 242.0 75.62 Test performed at [facility] on a Binding Site Optilite Analyzer that uses a turbidime tric method for analysis. Patient testing should not be performed using multiple methodolo gies due to analytica l variation seen between test methodolo gies. FINAL Marlene Guzmán * [facility] [place], [address] [id number] 0 04/18 Free kappa / lambd a with K/L ratio , serum [place] light chain , free, serum , mg/dL mg/dL 0.33 1.94 3.62 High Test performed at [facility] on a Binding Site Optilite Analyzer that uses a turbidime tric method for analysis. Patient testing should not be performed using multiple methodolo gies due to analytica l variation seen between test methodolo gies. FINAL Marlene Stroud [facility], [address] [id number] 0 04/18 Free kappa / lambd a with K/L ratio , serum Lambd a light chain , free, serum , mg/dL mg/dL 0.57 2.63 3.13 High Test performed at [facility] on a Binding Site Optilite Analyzer that uses a turbidime tric method for analysis. Patient testing should not be performed using multiple methodolo gies due to analytica l variation seen between test methodolo gies. FINAL Marlene [facility], [address] [facility] [address] [id number] 0 04/18 Free kappa / lambd a with K/L ratio , serum K/L light chain ratio , free, serum 0.26 1.65 1.16% FINAL Marlene [facility], [address] [facility] [address] [id number] 0 04/18 CBC w/ auto diff WBC K/uL 3.0 8.9 7.0 FINAL Marlene [facility] [place], [address] [facility] [id number] 0 Phone: () - 04/18 CBC w/ auto diff HGB g/dL 11.3 15.2 14.0 FINAL Marlene [facility] - [place], [address] [place] [id number] 0 Phone: () - 04/18 CBC w/ auto diff PLT K/uL 113.0 364.0 164 FINAL Marlene Rubi [facility] - [place], [address] [place] [id number] 0 Phone: () - 04/18 CBC w/ auto diff Tammy # (ANC) K/uL 1.6 6.6 4.5 FINAL Marlene [facility] [place], [address] [place] [id number] 0 Phone: () - 04/18 CBC w/ auto diff Tammy % % 43.0 74.0 64.0 FINAL Marlene Ramirez [facility] [place], [address] [place] [id number] 0 Phone: () - 04/18 CBC w/ auto diff IG % % 0.0 0.5 0.3 FINAL Marlene Ramirez [facility] [place], [address] [place] [id number] 0 Phone: () - 04/18 CBC w/ auto diff IG # K/uL 0.0 0.03 0.02 FINAL Marlene Ramirez [facility] [place], [address] [place] [id number] 0 Phone: () - 04/18 CBC w/ auto diff LY % % 14.0 41.0 28.2 FINAL Marlene Gumzán [facility] [place], [address] [place] [id number] 0 Phone: () - 04/18 CBC w/ auto diff MO % % 6.0 15.0 6.0 FINAL Marlene Guzmán [facility] [place], [address] [place] [id number] 0 Phone: () - 04/18 CBC w/ auto diff EO % % 0.0 7.0 1.1 FINAL Marlene Ramirez [facility] [place], [address] [place] [id number] 0 Phone: () - 04/18 CBC w/ auto diff BA % % 0.0 2.0 0.4 FINAL Marlene [facility] [place], [address] [place] [id number] 0 Phone: () - 04/18 CBC w/ auto diff LY # K/uL 0.4 3.6 2.0 FINAL Marlene [facility] - [place], [address] [place] [id number] 0 Phone: () - 04/18 CBC w/ auto diff MO # K/uL 0.2 1.3 0.4 FINAL Marlene [facility] [place], [address] [place] [id number] 0 Phone: () - 04/18 CBC w/ auto diff EO # K/uL 0.0 0.6 0.1 FINAL Marlene [facility] - [place], [address] [place] [id number] 0 Phone: () - 04/18 CBC w/ auto diff BA # K/uL 0.0 0.2 0.0 FINAL Marlene [facility] - [place], [address] [place] [id number] 0 Phone: () - 04/18 CBC w/ auto diff NRBC % #/100W BC 0.0 0.2 0.0 FINAL Marlene [facility] - [place], [address] [place] [id number] 0 Phone: () - 04/18 CBC w/ auto diff RBC M/uL 3.9 5.1 4.84 FINAL Marlene [facility] [place], [address] [place] [id number] 0 Phone: () - 04/18 CBC w/ auto diff HCT % 35.0 48.0 40.4 FINAL Marlene Guzmán [facility] [place], [address] [place] [id number] 0 Phone: () - 04/18 CBC w/ auto diff MCV fL 80.0 104.0 83.5 FINAL Marlene Guzmán [facility] [place], [address] [place] [id number] 0 Phone: () - 04/18 CBC w/ auto diff MCH pg 26.0 35.0 28.9 FINAL Marlene Guzmán [facility] [place], [address] [place] [id number] 0 Phone: () - 04/18 CBC w/ auto diff MCHC g/dL 30.0 35.0 34.7 FINAL Marlene Guzmán [facility] [place], [address] [place] [id number] 0 Phone: () - 04/18 CBC w/ auto diff MPV fL 9.5 13.4 9.7 FINAL Marlene Guzmán [facility] [place], [address] [place] [id number] 0 Phone: () - 04/18 CBC w/ auto diff RDW % 11.4 16.1 13.80 FINAL Marlene Guzmán [facility] [place], [address] [place] [id number] 0 Phone: () - 04/18 CMP Album in g/dL 3.5 5.0 4.0 FINAL Marlene Guzmán * [facility] [place], [address] [place] [id number] 0 04/18 CMP Alkal ine phosp hatas e U/L 36.0 125.0 105 FINAL Marlene Guzmán * [facility] [place], [address] [place] [id number] 0 04/18 CMP ALT/S GPT U/L 0.0 34.0 35 High FINAL Marlene Guzmán * [facility], [address] [facility] [address] [id number] 0 04/18 CMP AST/S GOT U/L 14.0 36.0 44 High FINAL Marlene Guzmán * [facility], [address] [facility] [address] [id number] 0 04/18 CMP BUN mg/dL 7.0 17.0 21.0 High FINAL Marlene Guzmán * [facility], [address] [facility] [address] [id number] 0 04/18 CMP Calci um mg/dL 8.4 10.2 8.8 FINAL Marlene Guzmán * [facility], [address] [facility] [address] [id number] 0 04/18 CMP Chlor nilson mmol/L 96.0 107.0 106 FINAL Marlene Guzmán * [facility], [address] [facility] [address] [id number] 0 04/18 CMP CO2 mmol/L 22.0 30.0 [...] hour stability window. FINAL Marlene Guzmán * [facility], [address] [facility] [address] [id number] 0 04/18 CMP Creat inine mg/dL 0.66 1.25 0.70 FINAL Marlene Guzmán * [facility], [address] [facility] [id number] 0 04/18 CMP GFR estim ate ml/min /1.73m ^2 97.7 GFR is calculate d using the CKD-EPI equation. FINAL Marlene Guzmán * [facility], [address] [facility] [id number] 0 04/18 CMP Gluco se mg/dL 74.0 100.0 267 High FINAL Marlene Guzmán * [facility], [address] [facility] [id number] 0 04/18 CMP Potas sium mmol/L 3.5 5.1 4.0 FINAL Marlene Guzmán * [facility], [address] [facility] [id number] 0 04/18 CMP Sodiu m mmol/L 137.0 145.0 136 Low FINAL Marlene Guzmán * [facility], [address] [facility] [id number] 0 04/18 CMP Bilir ubin, total mg/dL 0.2 1.3 1.0 FINAL Marlene Guzmán * [facility], [address] [facility] [id number] 0 04/18 CMP Total prote in g/dL 6.3 8.2 7.3 FINAL Marlene Guzmán * [facility], [address] [facility] [id number] 0 04/18 [facility] other lab See chainstitch elastic attacher d 12/20 [facility] other lab See chainstitch elastic attacher d 12/20 Misc other lab See chainstitch elastic attacher d 03/09 Free kappa / lambd a with K/L ratio , serum [place] light chain , free, serum , mg/dL mg/dL 0.33 1.94 4.35 High Test performed at [facility] on a Binding Site Optilite Analyzer that uses a turbidime tric method for analysis. Patient testing should not be performed using multiple methodolo gies due to analytica l variation seen between test methodolo gies. FINAL Marlene Guzmán * [facility] , [address] [facility] [address] [facility] [id number] 0 03/09 Free kappa / lambd a with K/L ratio , serum Lambd a light chain , free, serum , mg/dL mg/dL 0.57 2.63 3.83 High Test performed at [facility] on a Binding Site Optilite Analyzer that uses a turbidime tric method for analysis. Patient testing should not be performed using multiple methodolo gies due to analytica l variation seen between test methodolo gies. FINAL Marlene Guzmán * [facility] , [address] [facility] [address] [id number] 0 03/09 Free kappa / lambd a with K/L ratio , serum K/L light chain ratio , free, serum 0.26 1.65 1.14% FINAL Marlene Guzmán * [facility] , [address] [facility] [address] [id number] 0 03/09 CMP Album in g/dL 3.5 5.0 3.8 FINAL Marlene Guzmán * [facility] , [address] [facility] [address] [id number] 0 03/09 CMP Alkal ine phosp hatas e U/L 36.0 125.0 106 FINAL Marlene Gzumán * [facility] , [address] [facility] [address] [id number] 0 03/09 CMP ALT/S GPT U/L 0.0 34.0 37 High FINAL Marlene Guzmán * [facility] , [address] [facility] [address] [id number] 0 03/09 CMP AST/S GOT U/L 14.0 36.0 36 FINAL Marlene Ramirez * [facility] , [address] [facility] [address] [facility] [id number] 0 03/09 CMP BUN mg/dL 7.0 17.0 18.0 High FINAL Marlene Guzmán * [facility] , [address] [facility] [address] [facility] [id number] 0 03/09 CMP Calci um mg/dL 8.4 10.2 8.9 FINAL Marlene Guzmán * [facility] , [address] [facility] [address] [facility] [id number] 0 03/09 CMP Chlor nilson mmol/L 96.0 107.0 99 FINAL Marlene Guzmán * [facility] , [address] [facility] [address] [facility] [id number] 0 03/09 CMP CO2 mmol/L 22.0 30.0 [...] hour stability window. FINAL Marlene Guzmán * [facility] , [address] [facility] [address] [facility] [id number] 0 03/09 CMP Creat inine mg/dL 0.66 1.25 0.70 FINAL Marlene Guzmán * [facility] , [address] [facility] [address] [facility] [id number] 0 03/09 CMP GFR estim ate ml/min /1.73m ^2 97.1 GFR is calculate d using the CKD-EPI equation. FINAL Marlene Guzmán * [facility] , [address] [facility] [address] [id number] 0 03/09 CMP Gluco se mg/dL 74.0 100.0 363 Criti sami High FINAL Marlene Guzmán * [facility] , [address] [facility] [address] [facility] [id number] 0 03/09 CMP Potas sium mmol/L 3.5 5.1 3.9 FINAL Marlene Guzmán * [facility] , [address] [facility] [address] [facility] [id number] 0 03/09 CMP Sodiu m mmol/L 137.0 145.0 134 Low FINAL Marlene Guzmán * [facility] , [address] [facility] [address] [facility] [id number] 0 03/09 CMP Bilir ubin, total mg/dL 0.2 1.3 1.1 FINAL Marlene Guzmán * [facility] , [address] [facility] [address] [facility] [id number] 0 03/09 CMP Total prote in g/dL 6.3 8.2 7.3 FINAL Marlene Guzmán * [facility] , [address] [facility] [address] [facility] [id number] 0 03/09 CBC w/ auto diff WBC K/uL 3.0 8.9 7.1 FINAL Marlene Guzmán [place] [facility] [place] [facility] , [address] [place] [id number] 0 03/09 CBC w/ auto diff HGB g/dL 11.3 15.2 14.4 FINAL Marlene Guzmán [place] [facility] [place] [facility] , [address] [place] [id number] 0 03/09 CBC w/ auto diff PLT K/uL 113.0 364.0 179 FINAL Marlene Guzmán [place] [facility] [place] [facility] , [address] [place] [id number] 0 03/09 CBC w/ auto diff Tammy # (ANC) K/uL 1.6 6.6 4.7 FINAL Marlene Guzmán [place] [facility] [place] [facility] , [address] [place] [id number] 0 03/09 CBC w/ auto diff Tammy % % 43.0 74.0 65.7 FINAL Marlene Guzmán [place] [facility] [place] [facility] , [address] [place] [id number] 0 03/09 CBC w/ auto diff IG % % 0.0 0.5 0.6 High FINAL Marlene Guzmán [place] [facility] [place] [facility] , [address] [place] [id number] 0 03/09 CBC w/ auto diff IG # K/uL 0.0 0.03 0.04 High FINAL Marlene Guzmán [place] [facility] [place] [facility] , [address] [place] [id number] 0 03/09 CBC w/ auto diff LY % % 14.0 41.0 25.8 FINAL Marlene Guzmán [place] [facility] [place] [facility] , [address] [place] [id number] 0 03/09 CBC w/ auto diff MO % % 6.0 15.0 6.2 FINAL Marlene Guzmán [place] [facility] [place] [facility] , [address] [place] [id number] 0 03/09 CBC w/ auto diff EO % % 0.0 7.0 1.1 FINAL Marlene Guzmán [place] [facility] [place] [facility] , [address] [place] [id number] 0 03/09 CBC w/ auto diff BA % % 0.0 2.0 0.6 FINAL Marlene Guzmán [place] [facility] [place] [facility] , [address] [place] [id number] 0 03/09 CBC w/ auto diff LY # K/uL 0.4 3.6 1.8 FINAL Marlene Guzmán [place] [facility] [place] [facility] , [address] [place] [id number] 0 03/09 CBC w/ auto diff MO # K/uL 0.2 1.3 0.4 FINAL Marlene Guzmán [place] [facility] [place] [facility] , [address] [place] [id number] 0 03/09 CBC w/ auto diff EO # K/uL 0.0 0.6 0.1 FINAL Marlene Guzmán [place] [facility] [place] [facility] , [address] [place] [id number] 0 03/09 CBC w/ auto diff BA # K/uL 0.0 0.2 0.0 FINAL Marlene Guzmán [place] [facility] [place] [facility] , [address] [place] [id number] 0 03/09 CBC w/ auto diff NRBC % #/100W BC 0.0 0.2 0.0 FINAL Marlene Guzmán [place] [facility] [place] [facility] , [address] [place] [id number] 0 03/09 CBC w/ auto diff RBC M/uL 3.9 5.1 5.08 FINAL Marlene Guzmán [place] [facility] [place] [facility] , [address] [place] [id number] 0 03/09 CBC w/ auto diff HCT % 35.0 48.0 42.9 FINAL Marlene Guzmán [facility] , [address] [place] [facility] [id number] 0 03/09 CBC w/ auto diff MCV fL 80.0 104.0 84.4 FINAL Marlene Guzmán [facility] , [address] [facility] [address] [place] [facility] [id number] 0 03/09 CBC w/ auto diff MCH pg 26.0 35.0 28.3 FINAL Marlene Guzmán [facility] , [address] [facility] [id number] 0 03/09 CBC w/ auto diff MCHC g/dL 30.0 35.0 33.6 FINAL Marlene Guzmán [facility] , [address] [facility] [address] [facility] [id number] 0 03/09 CBC w/ auto diff MPV fL 9.5 13.4 9.6 FINAL Marlene Guzmán [facility] , [address] [facility] [address] [facility] [id number] 0 03/09 CBC w/ auto diff RDW % 11.4 16.1 14.20 FINAL Marlene Guzmán [facility] , [address] [facility] [address] [facility] [id number] 0 03/09 Immun oglob ulin measu remen t IgG, quant mg/dL 610.0 1616.0 1080.49 Test performed at [facility] on a Binding Site Optilite Analyzer that uses a turbidime tric method for analysis. Patient testing should not be performed using multiple methodreal rocha due to analytica l variation seen between test methodreal rocha. FINAL Marlene Guzmán * [facility] , [address] [facility] [id number] 0 03/09 Immun oglob ulin measu remen t IgA, quant mg/dL 61.0 348.0 577.26 High Test performed at [facility] on a Binding Site Optilite Analyzer that uses a turbidime tric method for analysis. Patient testing should not be performed using multiple methodolo gies due to analytica l variation seen between test methodolo gies. FINAL Marlene Guzmán * [facility] , [facility] [address] [id number] 0 03/09 Immun oglob ulin measu remen t IgM, quant mg/dL 35.0 242.0 91.00 Test performed at [facility] on a Binding Site Optilite Analyzer that uses a turbidime tric method for analysis. Patient testing should not be performed using multiple methodolo gies due to analytica l variation seen between test methodolo gies. FINAL Marlene Guzmán * [facility] , [facility] [address] [id number] 0 03/09 Total prote in g/dL 6.3 8.2 7.1 FINAL Marlene Guzmán * [facility] On[facility] , [facility] [address] [place] [address] [id number] 0 03/09 Album in, SPE g/dL 3.31 5.31 4.70 FINAL Marlene Guzmán * [facility] , [facility] [address] [id number] 0 03/09 Alpha -1 globu tony g/dL 0.19 0.42 0.23 FINAL Marlene Guzmán * [facility] , [facility] [address] [id number] 0 03/09 Alpha -2 globu tony g/dL 0.44 1.03 0.52 FINAL Marlene Guzmán * [facility] , [facility] [address] [id number] 0 03/09 Beta globu tony g/dL 0.52 1.05 0.80 FINAL Marlene Guzmán * [facility] , [address] [facility] [address] [id number] 0 03/09 Gamma globu tony g/dL 0.59 1.46 0.85 FINAL Marlene Guzmán * [facility] , [address] [facility] [address] [id number] 0 03/09 Elect Gemma layton in Lab resul t note Previou sly identif ied parapro teins detecte d in gamma region. Is now 0.3 and 0.4 gm/dL. Interpr eted and signed by Luis Guillermo MD on 025 FINAL Marlene Guzmán * [facility] , [facility] [address] [id number] 0 03/09 M-spi ke, SPE, g/dL g/dL 0.0 0.0 0.3 High FINAL Marlene Guzmán * [facility] , [address] [facility] [address] [id number] 0 03/09 M-spi ke 2, SPE g/dL 0.0 0.0 0.4 High FINAL Marelne Guzmán * [facility] , [address] [facility] [address] [id number] 0 04/03 Misc other lab See chainstitch elastic attacher d Medications Date Name Route Dose Frequency [...] 70 04/10/2025 BMI 53.23 Notes Section * 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 History of Present Illness (Customer Experience Consultant Oncology): 63 y.o.?? 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 Genetic Testing (Customer Experience Consultant Oncology): Interval History (Customer Experience Consultant Oncology) She is crying??when I walk in [...] Hysteroscopy with myosure, D & C 06/28/23 grader meat History: - 3 , 1 SAb Allergies: [...] 50 mg tablet daily 75 mg * Potter (Hydrocodone-Acetaminophen Oral 5 mg-325 mg) 5-325 mg [...] BSA: 2.37, BMI: 48.36 kg/m2 Physical Exam (Customer Experience Consultant Oncology): General:?? Anxious, , female tearful??throughout visit. [...] record:05/23/2019 Last record:05/23/2019; ) Assessment & Plan (Customer Experience Consultant Oncology): 63?? y.o. with abnormal uterine [...]
--- OUTSIDE RECORDS SUMMARY | 2025-07-06 23:20 | XMS_ITS ---
Author Name Interface, [id number] lity Address [address] [facility] [address] [place] [address] [facility] Oncology Address [address] [facility] [address] [place] [address] Support Name Relationship Address Phone Greg Henry [...] By Specimen Source Lab Address 11/05 [facility] [place] [facility] other lab See brick maker d 11/08 Mis other lab See brick maker d 11/22 Color (ua) Yellow FINAL [facility] [place], [address] [facility] [address] [place] [id number] 0 Phone: () - 11/22 Appea ying (ua) Clear FINAL [facility] [place], [address] [facility] [address] [place] [id number] 0 Phone: () - 11/22 Gluco se (ua), qual 500.0% Abnor mal FINAL [facility] [place], [address] [facility] [address] [place] [phone] 0 Phone: () - 11/22 Bilir ubin (ua) Negativ e FINAL [facility] [place], [address] [facility] [address] [place] [phone] 0 Phone: () - 11/22 Urina lysis , aceto ne or keton e chapo s measu remen t Negativ e FINAL [facility] [place], [address] [facility] [address] [place] [phone] 0 Phone: () - 11/22 Speci fic gravi ty (ua) 1.005 1.02 1.025% Abnor mal FINAL [facility] [place], [address] [facility] [address] [place] [phone] 0 Phone: () - 11/22 Blood (ua) Negativ e FINAL [facility] [place], [address] [facility] [address] [place] [phone] 0 Phone: () - 11/22 pH (ua) 5.0 8.0 6.0% FINAL [facility] [place], [address] [facility] [address] [place] [phone] 0 Phone: () - 11/22 Prote in (ua) Negativ e FINAL [facility] [place], [address] [place] [address] [address] [place] [phone] 0 Phone: () - 11/22 Urobi linog en (ua) 0.2 1.0 0.2% FINAL [facility] [place], [address] [place] [address] [address] [place] [phone] 0 Phone: () - 11/22 Nitri te (ua) Negativ e FINAL [facility] [place], [address] [facility] [address] [place] [phone] 0 Phone: () - 11/22 Leuko cyte jerson ase (ua), qual Negativ e FINAL [facility] [place], [address] [facility] [address] [place] [phone] 0 Phone: () - 11/22 UA comme nt 1 Dipstic k negativ e- Culture ordered per provide r FINAL [facility] [place] [facility] [place], [address] [facility] [address] [facility] [phone] 0 Phone: () - 11/22 Urine cultu re panel CULTU RE, URINE , ROUTI NE SEE NOTE Abnor mal CULTURE, URINE, ROUTINEMi crop puller Number: [id number] est Status: FinalSpec imen Source: UrineSpec imen [...] if DICKSON >or = 8 mcg/mL.(D istinguis baryr susceptib le versus intermedi atefor isolates with [...] f. FINAL Hafsa Farrell [facility] [address] [facility] [id number] 4 12/18 [facility] other lab See brick maker d 04/18 Total prote in g/dL 6.3 8.2 6.9 FINAL Marlene Ramirez * [facility], [address] [id number] 0 04/18 Album in, SPE g/dL 3.31 5.31 3.97 FINAL Marlene Guzmán * [facility], [address] [id number] 0 04/18 Alpha -1 globu tony g/dL 0.19 0.42 0.26 FINAL Marlene Guzmán * [facility], [address] [id number] 0 04/18 Alpha -2 globu tony g/dL 0.44 1.03 0.63 FINAL Marlene Guzmán * [facility], [address] [id number] 0 04/18 Beta globu tony g/dL 0.52 1.05 0.95 FINAL Marlene Ramirez * [facility], [address] [id number] 0 04/18 Gamma globu tony g/dL 0.59 1.46 1.10 FINAL Marlene Guzmán * [facility], [address] [id number] 0 04/18 Gemma Rodriguez in Lab resul t note Previou sly identif ied parapro teins detecte d in gamma region. Were 0.3 and 0.4 gm/dL, now 0.3 and 0.3 gm/dL. Interpr eted and signed by Adrienne Swanson MD on 024 FINAL Marlene Guzmán * [facility], [address] [facility] [address] [id number] 0 04/18 M-spi ke, SPE, g/dL g/dL 0.0 0.0 0.3 High FINAL Marlene Guzmán * [facility], [address] [facility] [address] [id number] 04/18 M-spi ke 2, SPE g/dL 0.0 0.0 0.3 High FINAL Marleneanabel Guzmán * [facility], [facility] [address] [place] [id number] 0 04/18 Immun oglob ulin measu remen t IgG, quant mg/dL 610.0 1616.0 946.67 Test performed at [facility] on a Binding Aviary Optilite Analyzer that uses a turbidime tric method for analysis. Patient testing should not be performed using multiple methodolo gies due to analytica l variation seen between test methodolo gies. FINAL Marleneanabel Guzmán * [facility] [address] [place] [id number] 0 04/18 Immun oglob ulin measu remen t IgA, quant mg/dL 61.0 348.0 493.08 High Test performed at [facility] on a Binding Aviary Optilite Analyzer that uses a turbidime tric method for analysis. Patient testing should not be performed using multiple methodolo gies due to analytica l variation seen between test methodolo gies. FINAL Marlene Guzmán * [facility], [address] [place] [address] [address] [place] [address] [id number] 0 04/18 Immun oglob ulin measu remen t IgM, quant mg/dL 35.0 242.0 75.62 Test performed at [facility] on a Binding Site Optilite Analyzer that uses a turbidime tric method for analysis. Patient testing should not be performed using multiple methodolo gies due to analytica l variation seen between test methodolo gies. FINAL aMrlene Forte a [facility], [facility]0 [facility] [address] [id number] 0 04/18 Free kappa / lambd a with K/L ratio , serum Farley light chain , free, serum , mg/dL mg/dL 0.33 1.94 3.62 High Test performed at [facility] on a Binding Site Optilite Analyzer that uses a turbidime tric method for analysis. Patient testing should not be performed using multiple methodolo gies due to analytica l variation seen between test methodolo gies. FINAL Marlene Rubi a [facility], [address] [facility] [address] [id number] 0 04/18 Free kappa / lambd a with K/L ratio , serum Lambd a light chain , free, serum , mg/dL mg/dL 0.57 2.63 3.13 High Test performed at [facility] on a Binding Aviary Optilite Analyzer that uses a turbidime tric method for analysis. Patient testing should not be performed using multiple methodolo gies due to analytica l variation seen between test methodolo gies. FINAL Marlene Rubi a [facility], [address] [id number] 0 04/18 Free kappa / lambd a with K/L ratio , serum K/L light chain ratio , free, serum 0.26 1.65 1.16% FINAL Marlene Forteot a [facility], [address] [id number] 0 04/18 CBC w/ auto diff WBC K/uL 3.0 8.9 7.0 FINAL Marlene Rubi [facility], [address] [facility] [address] [facility] [id number] 0 Phone: () - 04/18 CBC w/ auto diff HGB g/dL 11.3 15.2 14.0 FINAL Marlene [facility] [place], [address] [place] [id number] 0 Phone: () - 04/18 CBC w/ auto diff PLT K/uL 113.0 364.0 164 FINAL Marlene [facility] [place], [address] [place] [id number] 0 Phone: () - 04/18 CBC w/ auto diff Tammy # (ANC) K/uL 1.6 6.6 4.5 FINAL Marlene pagan [facility] - [place], [address] [place] [id number] 0 Phone: () - 04/18 CBC w/ auto diff Tammy % % 43.0 74.0 64.0 FINAL Marlene pagan [facility] - [place], [address] [place] [id number] 0 Phone: () - 04/18 CBC w/ auto diff IG % % 0.0 0.5 0.3 FINAL Marlene [facility] - [place], [address] [place] [id number] 0 Phone: () - 04/18 CBC w/ auto diff IG # K/uL 0.0 0.03 0.02 FINAL Marlene pagan [facility] - [place], [address] [place] [id number] 0 Phone: () - 04/18 CBC w/ auto diff LY % % 14.0 41.0 28.2 FINAL Marlene Rubi a [facility] - [place], [address] [place] [id number] 0 Phone: () - 04/18 CBC w/ auto diff MO % % 6.0 15.0 6.0 FINAL Marlene Guzmán [facility] - [place], [address] [place] [id number] 0 Phone: () - 04/18 CBC w/ auto diff EO % % 0.0 7.0 1.1 FINAL Marlene pagan [facility] - [place], [address] [place] [id number] 0 Phone: () - 04/18 CBC w/ auto diff BA % % 0.0 2.0 0.4 FINAL Marlene [facility] - [place], [address] [place] [id number] 0 Phone: () - 04/18 CBC w/ auto diff LY # K/uL 0.4 3.6 2.0 FINAL Marlene Guzmán [facility] - [place], [address] [place] [id number] 0 Phone: () - 04/18 CBC w/ auto diff MO # K/uL 0.2 1.3 0.4 FINAL Marlene Ramirez [facility] [place], [address] [place] [id number] 0 Phone: () - 04/18 CBC w/ auto diff EO # K/uL 0.0 0.6 0.1 FINAL Marlene Ramirez [facility] - [place], [address] [place] [id number] 0 Phone: () - 04/18 CBC w/ auto diff BA # K/uL 0.0 0.2 0.0 FINAL Marlene Ramirez [facility] - [place], [address] [place] [id number] 0 Phone: () - 04/18 CBC w/ auto diff NRBC % #/100W BC 0.0 0.2 0.0 FINAL Marlene Gumzán [facility] - [place], [address] [place] [id number] 0 Phone: () - 04/18 CBC w/ auto diff RBC M/uL 3.9 5.1 4.84 FINAL Marlene Guzmán [facility] - [place], [address] [place] [id number] 0 Phone: () - 04/18 CBC w/ auto diff HCT % 35.0 48.0 40.4 FINAL Marlene Rubi a [facility] - [place], [address] [place] [id number] 0 Phone: () - 04/18 CBC w/ auto diff MCV fL 80.0 104.0 83.5 FINAL Marlene Forteot [facility] - [place], [address] [place] [id number] 0 Phone: () - 04/18 CBC w/ auto diff MCH pg 26.0 35.0 28.9 FINAL Marlene Rubi a [facility] - [place], [address] [place] [id number] 0 Phone: () - 04/18 CBC w/ auto diff MCHC g/dL 30.0 35.0 34.7 FINAL Marlene Rubi a [facility] - [place], [address] [place] [id number] 0 Phone: () - 04/18 CBC w/ auto diff MPV fL 9.5 13.4 9.7 FINAL Marlene Rubi a [facility] - [place], [address] [place] [id number] 0 Phone: () - 04/18 CBC w/ auto diff RDW % 11.4 16.1 13.80 FINAL Marlene Rubi a [facility] - [place], [address] [place] [id number] 0 Phone: () - 04/18 CMP Album in g/dL 3.5 5.0 4.0 FINAL Marlene Guzmán * [facility] [place], [address] [place] [id number] 0 04/18 CMP Alkal ine phosp hatas e U/L 36.0 125.0 105 FINAL Marlene Guzmán * [facility] [place], [address] [facility] [id number] 0 04/18 CMP ALT/S GPT U/L 0.0 34.0 35 High FINAL Marlene Guzmán * [facility], [address] [facility] [id number] 0 04/18 CMP AST/S GOT U/L 14.0 36.0 44 High FINAL Marlene Guzmán * [facility], [address] [facility] [id number] 0 04/18 CMP BUN mg/dL 7.0 17.0 21.0 High FINAL Marlene Guzmán * [facility], [address] [facility] [id number] 0 04/18 CMP Calci um mg/dL 8.4 10.2 8.8 FINAL Marlene Guzmán * [facility], [address] [facility] [id number] 0 04/18 CMP Chlor nilson mmol/L 96.0 107.0 106 FINAL Marlene Guzmán * [facility], [address] [facility] [id number] 0 04/18 CMP CO2 mmol/L 22.0 30.0 [...] hour stability window. FINAL Marlene Guzmán * [facility], [address] [facility] [id number] 0 04/18 CMP Creat inine mg/dL 0.66 1.25 0.70 FINAL Marlene Guzmán * [facility], [address] [facility] [address] [id number] 0 04/18 CMP GFR estim ate ml/min /1.73m ^2 97.7 GFR is calculate d using the CKD-EPI equation. FINAL Marlene Stroud [facility], [address] [facility] [address] [id number] 0 04/18 CMP Gluco se mg/dL 74.0 100.0 267 High FINAL Marlene Guzmán * [facility], [facility] [address] [id number] 0 04/18 CMP Potas sium mmol/L 3.5 5.1 4.0 FINAL Marlene Guzmán * [facility], [address] [facility] [address] [id number] 0 04/18 CMP Sodiu m mmol/L 137.0 145.0 136 Low FINAL Marlene Guzmán * [facility], [address] [facility] [address] [id number] 0 04/18 CMP Bilir ubin, total mg/dL 0.2 1.3 1.0 FINAL Marlene Guzmán * [facility], [address] [facility] [address] [id number] 0 04/18 CMP Total prote in g/dL 6.3 8.2 7.3 FINAL Marlene Guzmán * [facility], [address] [facility] [address] [id number] 0 04/18 [facility] other lab See brick maker d 12/20 Mis other lab See brick maker d 12/20 [facility] other lab See brick maker d 03/09 Free kappa / lambd a with K/L ratio , serum Farley light chain , free, serum , mg/dL mg/dL 0.33 1.94 4.35 High Test performed at [facility] on a Binding Site Optilite Analyzer that uses a turbidime tric method for analysis. Patient testing should not be performed using multiple methodolo gies due to analytica l variation seen between test methodolo gies. FINAL Marlene Guzmán * [facility] , [address] [facility] [address] [facility] [id number] 0 03/09 Free kappa / lambd a with K/L ratio , serum Lambd a light chain , free, serum , mg/dL mg/dL 0.57 2.63 3.83 High Test performed at [facility] on a Binding Site Optilite Analyzer that uses a turbidime tric method for analysis. Patient testing should not be performed using multiple methodolo gies due to analytica l variation seen between test methodolo gies. FINAL Marlene Guzmán * [facility] , [address] [facility] [address] [id number] 0 03/09 Free kappa / lambd a with K/L ratio , serum K/L light chain ratio , free, serum 0.26 1.65 1.14% FINAL Marlene Guzmán * [facility] , [address] [facility] [address] [id number] 0 03/09 CMP Album in g/dL 3.5 5.0 3.8 FINAL Marlene Guzmán * [facility] , [address] [facility] [address] [id number] 0 03/09 CMP Alkal ine phosp hatas e U/L 36.0 125.0 106 FINAL Marlene Guzmán * [facility] , [address] [facility] [address] [facility] [id number] 0 03/09 CMP ALT/S GPT U/L 0.0 34.0 37 High FINAL Marlene Guzmán * [facility] , [address] [facility] [id number] 0 03/09 CMP AST/S GOT U/L 14.0 36.0 36 FINAL Marlene Guzmán * [facility] , [address] [facility] [id number] 0 03/09 CMP BUN mg/dL 7.0 17.0 18.0 High FINAL Marlene Guzmán * [facility] , [address] [facility] [id number] 0 03/09 CMP Calci um mg/dL 8.4 10.2 8.9 FINAL Marlene Guzmán * [facility] , [address] [facility] [id number] 0 03/09 CMP Chlor nilson mmol/L 96.0 107.0 99 FINAL Marlene Guzmán * [facility] , [address] [facility] [id number] 0 03/09 CMP CO2 mmol/L 22.0 30.0 [...] hour stability window. FINAL Marleneanabel Guzmán * [facility] , [address] [facility] [id number] 0 03/09 CMP Creat inine mg/dL 0.66 1.25 0.70 FINAL Marlene Guzmán * [facility] , [address] [facility] [id number] 0 03/09 CMP GFR estim ate ml/min /1.73m ^2 97.1 GFR is calculate d using the CKD-EPI equation. FINAL Marlene Ramirez * [facility] , [address] [facility] [id number] 0 03/09 CMP Gluco se mg/dL 74.0 100.0 363 Criti sami High FINAL Marlene Ramirez * [facility] , [address] [facility] [id number] 0 03/09 CMP Potas sium mmol/L 3.5 5.1 3.9 FINAL Marlene Ramirez * [facility] , [address] [facility] [id number] 0 03/09 CMP Sodiu m mmol/L 137.0 145.0 134 Low FINAL Marlene Ramirez * [facility] , [address] [facility] [id number] 0 03/09 CMP Bilir ubin, total mg/dL 0.2 1.3 1.1 FINAL Marlene Ramirez * [facility] , [address] [facility] [id number] 0 03/09 CMP Total prote in g/dL 6.3 8.2 7.3 FINAL Marlene Guzmán * [facility] , [address] [facility] [id number] 0 03/09 CBC w/ auto diff WBC K/uL 3.0 8.9 7.1 FINAL Marlene Guzmán [place] [facility] [place] [facility] , [address] [place] [id number] 0 03/09 CBC w/ auto diff HGB g/dL 11.3 15.2 14.4 FINAL Marlene Guzmán [place] [facility] [place] [facility] , [address] [place] [id number] 0 03/09 CBC w/ auto diff PLT K/uL 113.0 364.0 179 FINAL Marelne Guzmán [place] [facility] [place] [facility] , [address] [place] [id number] 0 03/09 CBC w/ auto diff Tammy # (ANC) K/uL 1.6 6.6 4.7 FINAL Marlene Guzmán [place] [facility] [place] [facility] , [address] [place] [id number] 0 03/09 CBC w/ auto diff Tammy % % 43.0 74.0 65.7 FINAL Marlene Guzmán [place] [facility] [place] [facility] , [address] [place] [id number] 0 03/09 CBC w/ auto diff IG % % 0.0 0.5 0.6 High FINAL Marlene Guzmán [place] [facility] [place] [facility] , [address] [place] [id number] 0 03/09 CBC w/ auto diff IG # K/uL 0.0 0.03 0.04 High FINAL Marlene Guzmán [place] [facility] [place] [facility] , [address] [place] [id number] 0 03/09 CBC w/ auto diff LY % % 14.0 41.0 25.8 FINAL Marlene Guzmán [place] [facility] [place] [facility] , [address] [place] [id number] 0 03/09 CBC w/ auto diff MO % % 6.0 15.0 6.2 FINAL Marlene Guzmán [place] [facility] [place] [facility] , [address] [place] [id number] 0 03/09 CBC w/ auto diff EO % % 0.0 7.0 1.1 FINAL Marlene Guzmán [place] [facility] [place] [facility] , [address] [place] [id number] 0 03/09 CBC w/ auto diff BA % % 0.0 2.0 0.6 FINAL Marlene Guzmán [place] [facility] [place] [facility] , [address] [place] [id number] 0 03/09 CBC w/ auto diff LY # K/uL 0.4 3.6 1.8 FINAL Marlene Guzmán [place] [facility] [place] [facility] , [address] [place] [id number] 0 03/09 CBC w/ auto diff MO # K/uL 0.2 1.3 0.4 FINAL Marlene Guzmán [place] [facility] [place] [facility] , [address] [place] [id number] 0 03/09 CBC w/ auto diff EO # K/uL 0.0 0.6 0.1 FINAL Marlene Guzmán [place] [facility] [place] [facility] , [address] [place] [id number] 0 03/09 CBC w/ auto diff BA # K/uL 0.0 0.2 0.0 FINAL Marlene Guzmán [place] [facility] [place] [facility] , [address] [place] [id number] 0 03/09 CBC w/ auto diff NRBC % #/100W BC 0.0 0.2 0.0 FINAL Marlene Guzmán [place] [facility] [place] [facility] , [address] [place] [id number] 0 03/09 CBC w/ auto diff RBC M/uL 3.9 5.1 5.08 FINAL Marlene Guzmán [place] [facility] [place] [facility] , [address] [place] [id number] 0 03/09 CBC w/ auto diff HCT % 35.0 48.0 42.9 FINAL Marlene Guzmán [place] [facility] [place] [facility] , [address] [place] [id number] 0 03/09 CBC w/ auto diff MCV fL 80.0 104.0 84.4 FINAL Marlene Guzmán [place] [facility] [place] [facility] , [address] [place] [id number] 0 03/09 CBC w/ auto diff MCH pg 26.0 35.0 28.3 FINAL Marlene Guzmán [place] [facility] [place] [facility] , [address] [place] [id number] 0 03/09 CBC w/ auto diff MCHC g/dL 30.0 35.0 33.6 FINAL Marlene Guzmán [place] [facility] , [address] [place] [id number] 0 03/09 CBC w/ auto diff MPV fL 9.5 13.4 9.6 FINAL Marlene Guzmán [place] [facility] [place] [facility] , [address] [place] [id number] 0 03/09 CBC w/ auto diff RDW % 11.4 16.1 14.20 FINAL Marlene Guzmán [place] [facility] [place] [facility] , [address] [place] [id number] 0 03/09 Total prote in g/dL 6.3 8.2 7.1 FINAL Marlene Guzmán * [place] [facility] [place] [facility] , [address] [place] [id number] 0 03/09 Album in, SPE g/dL 3.31 5.31 4.70 FINAL Marlene Guzmán * [facility] , [address] [address] [id number] 0 03/09 Alpha -1 globu tony g/dL 0.19 0.42 0.23 FINAL Marlene Guzmán * [facility] , [address] [facility] [id number] 0 03/09 Alpha -2 globu tony g/dL 0.44 1.03 0.52 FINAL Marlene Guzmán * [facility] , [address] [id number] 0 03/09 Beta globu tony g/dL 0.52 1.05 0.80 FINAL Marlene Guzmán * [facility] , [address] [id number] 0 03/09 Gamma globu tony g/dL 0.59 1.46 0.85 FINAL Marlene Guzmán * [facility] , [address] [id number] 0 03/09 Elect Gemma layton in Lab resul t note Previou sly identif ied parapro teins detecte d in gamma region. Is now 0.3 and 0.4 gm/dL. Interpr eted and signed by Luis Guillermo MD on 025 FINAL Marlene Guzmán * [facility] , [address] [facility] [id number] 0 03/09 M-spi ke, SPE, g/dL g/dL 0.0 0.0 0.3 High FINAL Marlene Guzmán * [facility] , [address] [id number] 0 03/09 M-spi ke 2, SPE g/dL 0.0 0.0 0.4 High FINAL Marlene Guzmán * [facility] , [address] [facility] [id number] 0 03/09 Immun oglob ulin measu remen t IgG, quant mg/dL 610.0 1616.0 1080.49 Test performed at [facility] on a Binding Site Optilite Analyzer that uses a turbidime tric method for analysis. Patient testing should not be performed using multiple methodolo gies due to analytica l variation seen between test methodolo gies. FINAL Marlene Ramirez * [facility] , [address] [facility] [id number] 0 03/09 Immun oglob ulin measu remen t IgA, quant mg/dL 61.0 348.0 577.26 High Test performed at [facility] on a Binding Site Optilite Analyzer that uses a turbidime tric method for analysis. Patient testing should not be performed using multiple methodolo gies due to analytica l variation seen between test methodolo gies. FINAL Marlene Ramirez * [facility] , [address] [facility] [id number] 0 03/09 Immun oglob ulin measu remen t IgM, quant mg/dL 35.0 242.0 91.00 Test performed at [facility] on a Binding Site Optilite Analyzer that uses a turbidime tric method for analysis. Patient testing should not be performed using multiple methodolo gies due to analytica l variation seen between test methodolo gies. FINAL Marlene Guzmán * [facility] , [address] [facility] [id number] 0 04/03 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 History of Present Illness (Film Tests Checker Oncology): 63 y.o.?? 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 Anxious, , female with somewhat [...] record:05/23/2019 Last record:05/23/2019; ) Assessment & Plan (Film Tests Checker Oncology): 63?? y.o. 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 Pathology benign. Reviewedpathology, operative findings, expected recovery.?? She is recovering well, no further restrictions.?? She can follow up with PCP/body wirer as needed.? Pain Care Management: Pain Scale: [...] Electronically signed by Judy RAJPUT 10/11/2023 15:27 TIPPLE BOSS
--- OUTSIDE RECORDS SUMMARY | 2025-07-06 23:20 | XMS_ITS ---
Author Name Interface, [id number] lity Address [address] [facility] [address] [place] [address] [facility] Oncology Address [address] [place] [address] Support Name Relationship Address Phone Greg Henry [...] Ordered By Specimen Source Lab Address 11/05 [facility] [place] See coverstitch elastic attacher d 11/08 Mis other lab See coverstitch elastic attacher d 11/22 Color (ua) Yellow FINAL [facility] [place], [address] [facility] [address] [place] [id number] 0 Phone: () - 11/22 Appea ying (ua) Clear FINAL [facility] [place], [address] [facility] [address] [place] [phone] 0 Phone: () - 11/22 Gluco se (ua), qual 500.0% Abnor mal FINAL [facility] [place], [address] [facility] [address] [place] [phone] 0 Phone: () - 11/22 Bilir ubin (ua) Negativ e FINAL [facility] [place], [address] [facility] [address] [place] [phone] 0 Phone: () - 11/22 Urina lysis , aceto ne or keton e chapo s measu remen t Negativ e FINAL [facility] [place], [address] [facility] [address] [place] [phone] 0 Phone: () - 11/22 Speci fic gravi ty (ua) 1.005 1.02 1.025% Abnor mal FINAL [facility] [place], [address] [facility] [address] [place] [id number] 0 Phone: () - 11/22 Blood (ua) Negativ e FINAL [facility] [facility] [place], [address] [facility] [address] [place] [id number] 0 Phone: () - 11/22 pH (ua) 5.0 8.0 6.0% FINAL [facility] [facility] [place], [address] [facility] [address] [place] [phone] 0 Phone: () - 11/22 Prote in (ua) Negativ e FINAL [facility] [place], [address] [place] [address] [address] [place] [phone] 0 Phone: () - 11/22 Urobi linog en (ua) 0.2 1.0 0.2% FINAL [facility] [place], [address] [place] [address] [address] [place] [phone] 0 Phone: () - 11/22 Nitri te (ua) Negativ e FINAL [facility] [place], [address] [facility] [address] [place] [phone] 0 Phone: () - 11/22 Leuko cyte jerson ase (ua), qual Negativ e FINAL [facility] [place], [address] [facility] [address] [place] [phone] 0 Phone: () - 11/22 UA comme nt 1 Dipstic k negativ e- Culture ordered per provide r FINAL [facility] [place] [facility] [place], [address] [facility] [address] [facility] [id number] 0 Phone: () - 11/22 Urine cultu re panel CULTU RE, URINE , ROUTI NE SEE NOTE Abnor mal 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 FINAL Hafsa Farrell [facility] [address] [facility] [phone] 4 12/18 [facility] other [place] See coverstitch elastic attacher d 04/18 Total prote in g/dL 6.3 8.2 6.9 FINAL Marlene Ramirez * [facility], [address] [id number] 0 04/18 Album in, SPE g/dL 3.31 5.31 3.97 FINAL Marlene Guzmán * [facility], [address] [id number] 0 04/18 Alpha -1 globu tony g/dL 0.19 0.42 0.26 FINAL Marlene Guzmán * [facility], [address] [id number] 0 04/18 Alpha -2 globu tony g/dL 0.44 1.03 0.63 FINAL Marlene Guzmán * [facility], [address] [id number] 0 04/18 Beta globu tony g/dL 0.52 1.05 0.95 FINAL Marlene Ramirez * [facility], [address] [id number] 0 04/18 Gamma globu tony g/dL 0.59 1.46 1.10 FINAL Marlene Guzmán * [facility], [address] [id number] 0 04/18 Gemma Rodriguez in Lab resul t note Previou sly identif ied parapro teins detecte d in gamma region. Were 0.3 and 0.4 gm/dL, now 0.3 and 0.3 gm/dL. Interpr eted and signed by Adrienne Swanson MD on 024 FINAL Marlene Guzmán * [facility], [address] [facility] [address] [id number] 0 04/18 M-spi ke, SPE, g/dL g/dL 0.0 0.0 0.3 High FINAL Marlene Guzmán * [facility], [address] [facility] [address] [id number] 0 04/18 M-spi ke 2, SPE g/dL 0.0 0.0 0.3 High FINAL Marleneanabel Guzmán * [facility], [facility] [address] [place] [address] [id number] 0 04/18 Immun oglob ulin measu remen t IgG, quant mg/dL 610.0 1616.0 946.67 Test performed at [facility] on a Binding ThemBid Optilite Analyzer that uses a turbidime tric method for analysis. Patient testing should not be performed using multiple methodolo gies due to analytica l variation seen between test methodolo gies. FINAL Marleneanabel Guzmán * [facility], [facility] [address] [place] [address] [id number] 0 04/18 Immun oglob ulin measu remen t IgA, quant mg/dL 61.0 348.0 493.08 High Test performed at [facility] on a Binding ThemBid Optilite Analyzer that uses a turbidime tric method for analysis. Patient testing should not be performed using multiple methodolo gies due to analytica l variation seen between test methodolo gies. FINAL Marlene Guzmán * [facility], [address] [place] [address] [place] [address] [id number] 0 04/18 Immun oglob ulin measu remen t IgM, quant mg/dL 35.0 242.0 75.62 Test performed at [facility] on a Binding Site Optilite Analyzer that uses a turbidime tric method for analysis. Patient testing should not be performed using multiple methodolo gies due to analytica l variation seen between test methodolo gies. FINAL Marlene Forte a [facility], [facility]0 [facility] [address] [id number] 0 04/18 Free kappa / lambd a with K/L ratio , serum [place] light chain , free, serum , mg/dL mg/dL 0.33 1.94 3.62 High Test performed at [facility] on a Binding Site Optilite Analyzer that uses a turbidime tric method for analysis. Patient testing should not be performed using multiple methodolo gies due to analytica l variation seen between test methodolo gies. FINAL Marlene Rubi a [facility], [address] [facility] [address] [id number] 0 04/18 Free kappa / lambd a with K/L ratio , serum Lambd a light chain , free, serum , mg/dL mg/dL 0.57 2.63 3.13 High Test performed at [facility] on a Binding ThemBid Optilite Analyzer that uses a turbidime tric method for analysis. Patient testing should not be performed using multiple methodolo gies due to analytica l variation seen between test methodolo gies. FINAL Marlene Rubi a [facility], [address] [id number] 0 04/18 Free kappa / lambd a with K/L ratio , serum K/L light chain ratio , free, serum 0.26 1.65 1.16% FINAL Marlene [facility] [facility], [address] [id number] 0 04/18 CBC w/ auto diff WBC K/uL 3.0 8.9 7.0 FINAL Marlene Rubi On[facility], [address] [facility] [id number] 0 Phone: () - 04/18 CBC w/ auto diff HGB g/dL 11.3 15.2 14.0 FINAL [facility]lene [facility] [place], [address] [place] [id number] 0 Phone: () - 04/18 CBC w/ auto diff PLT K/uL 113.0 364.0 164 FINAL Marlene [facility] - [place], [address] [place] [id number] 0 Phone: () - 04/18 CBC w/ auto diff Tammy # (ANC) K/uL 1.6 6.6 4.5 FINAL Marlene pagan [facility] - [place], [address] [place] [id number] 0 Phone: () - 04/18 CBC w/ auto diff Tammy % % 43.0 74.0 64.0 FINAL Marlene [facility] - [place], [address] [place] [id number] 0 Phone: () - 04/18 CBC w/ auto diff IG % % 0.0 0.5 0.3 FINAL Marlene [facility] - [place], [address] [place] [id number] 0 Phone: () - 04/18 CBC w/ auto diff IG # K/uL 0.0 0.03 0.02 FINAL Marlene pagan [facility] - [place], [address] [place] [id number] 0 Phone: () - 04/18 CBC w/ auto diff LY % % 14.0 41.0 28.2 FINAL Marlene Rubi a [facility] - [place], [address] [place] [id number] 0 Phone: () - 04/18 CBC w/ auto diff MO % % 6.0 15.0 6.0 FINAL Marlene Guzmán [facility] - [place], [address] [place] [id number] 0 Phone: () - 04/18 CBC w/ auto diff EO % % 0.0 7.0 1.1 FINAL Marlene [facility] - [place], [address] [place] [id number] 0 Phone: () - 04/18 CBC w/ auto diff BA % % 0.0 2.0 0.4 FINAL Marlene [facility] - [place], [address] [place] [id number] 0 Phone: () - 04/18 CBC w/ auto diff LY # K/uL 0.4 3.6 2.0 FINAL Marlene Guzmán [facility] - [place], [address] [place] [id number] 0 Phone: () - 04/18 CBC w/ auto diff MO # K/uL 0.2 1.3 0.4 FINAL Marlene Ramirez [facility] [place], [address] [place] [id number] 0 Phone: () - 04/18 CBC w/ auto diff EO # K/uL 0.0 0.6 0.1 FINAL Marlene Ramirez [facility] [place], [address] [place] [id number] 0 Phone: () - 04/18 CBC w/ auto diff BA # K/uL 0.0 0.2 0.0 FINAL Marlene Ramirez [facility] - [place], [address] [place] [id number] 0 Phone: () - 04/18 CBC w/ auto diff NRBC % #/100W BC 0.0 0.2 0.0 FINAL Marlene Guzmán [facility] - [place], [address] [place] [id number] 0 Phone: () - 04/18 CBC w/ auto diff RBC M/uL 3.9 5.1 4.84 FINAL Marlene Guzmán [facility] - [place], [address] [place] [id number] 0 Phone: () - 04/18 CBC w/ auto diff HCT % 35.0 48.0 40.4 FINAL Marlene Rubi a [facility] - [place], [address] [place] [id number] 0 Phone: () - 04/18 CBC w/ auto diff MCV fL 80.0 104.0 83.5 FINAL Marlene [facility] - [place], [address] [place] [id number] 0 Phone: () - 04/18 CBC w/ auto diff MCH pg 26.0 35.0 28.9 FINAL Marlene Rubi a [facility] - [place], [address] [place] [id number] 0 Phone: () - 04/18 CBC w/ auto diff MCHC g/dL 30.0 35.0 34.7 FINAL Marlene Rubi a [facility] - [place], [address] [place] [id number] 0 Phone: () - 04/18 CBC w/ auto diff MPV fL 9.5 13.4 9.7 FINAL Marlene Rubi a [facility] - [place], [address] [place] [id number] 0 Phone: () - 04/18 CBC w/ auto diff RDW % 11.4 16.1 13.80 FINAL Marlene Rubi a [facility] - [place], [address] [place] [id number] 0 Phone: () - 04/18 CMP Album in g/dL 3.5 5.0 4.0 FINAL Marlene Guzmán * [facility] [place], [address] [place] [id number] 0 04/18 CMP Alkal ine phosp hatas e U/L 36.0 125.0 105 FINAL Marlene Guzmán * [facility] [place], [address] [facility] [id number] 0 04/18 CMP ALT/S GPT U/L 0.0 34.0 35 High FINAL Marlene Guzmán * [facility], [address] [facility] [id number] 0 04/18 CMP AST/S GOT U/L 14.0 36.0 44 High FINAL Marlene Guzmán * [facility], [address] [facility] [id number] 0 04/18 CMP BUN mg/dL 7.0 17.0 21.0 High FINAL Marlene Guzmán * [facility], [address] [facility] [id number] 0 04/18 CMP Calci um mg/dL 8.4 10.2 8.8 FINAL Marlene Guzmán * [facility], [address] [facility] [id number] 0 04/18 CMP Chlor nilson mmol/L 96.0 107.0 106 FINAL Marlene Guzmán * [facility], [address] [facility] [id number] 0 04/18 CMP CO2 mmol/L 22.0 30.0 [...] hour stability window. FINAL Marlene Guzmán * [facility], [address] [facility] [id number] 0 04/18 CMP Creat inine mg/dL 0.66 1.25 0.70 FINAL Marlene Guzmán * [facility], [address] [facility] [address] [id number] 0 04/18 CMP GFR estim ate ml/min /1.73m ^2 97.7 GFR is calculate d using the CKD-EPI equation. FINAL Marlene Stroud [facility], [address] [facility] [address] [id number] 0 04/18 CMP Gluco se mg/dL 74.0 100.0 267 High FINAL Marlene Guzmán * [facility], [facility]0 [facility] [address] [id number] 0 04/18 CMP Potas sium mmol/L 3.5 5.1 4.0 FINAL Marlene Guzmán * [facility], [address] [facility] [address] [id number] 0 04/18 CMP Sodiu m mmol/L 137.0 145.0 136 Low FINAL Marlene Guzmán * [facility], [address] [facility] [address] [id number] 0 04/18 CMP Bilir ubin, total mg/dL 0.2 1.3 1.0 FINAL Marlene Guzmán * [facility], [address] [address] [id number] 0 04/18 CMP Total prote in g/dL 6.3 8.2 7.3 FINAL Marlene Guzmán * [facility], [address] [facility] [address] [id number] 0 04/18 [facility] other [place] See coverstitch elastic attacher d 12/20 Mis other lab See coverstitch elastic attacher d 12/20 [facility] other lab See coverstitch elastic attacher d 03/09 Free kappa / lambd a with K/L ratio , serum [place] light chain , free, serum , mg/dL mg/dL 0.33 1.94 4.35 High Test performed at [facility] on a Binding Site Optilite Analyzer that uses a turbidime tric method for analysis. Patient testing should not be performed using multiple methodolo gies due to analytica l variation seen between test methodolo gies. FINAL Marlene Guzmán * [facility] , [address] [facility] [address] [facility] [id number] 0 03/09 Free kappa / lambd a with K/L ratio , serum Lambd a light chain , free, serum , mg/dL mg/dL 0.57 2.63 3.83 High Test performed at [facility] on a Binding Site Optilite Analyzer that uses a turbidime tric method for analysis. Patient testing should not be performed using multiple methodolo gies due to analytica l variation seen between test methodolo gies. FINAL Marlene Guzmán * [facility] , [address] [facility] [address] [id number] 0 03/09 Free kappa / lambd a with K/L ratio , serum K/L light chain ratio , free, serum 0.26 1.65 1.14% FINAL Marlene Guzmán * [facility] , [address] [facility] [address] [id number] 0 03/09 CMP Album in g/dL 3.5 5.0 3.8 FINAL Marlene Guzmán * [facility] , [address] [facility] [address] [id number] 0 03/09 CMP Alkal ine phosp hatas e U/L 36.0 125.0 106 FINAL Marlene Guzmán * [facility] , [address] [facility] [address] [facility] [id number] 0 03/09 CMP ALT/S GPT U/L 0.0 34.0 37 High FINAL Marlene Guzmán * [facility] , [address] [facility] [id number] 0 03/09 CMP AST/S GOT U/L 14.0 36.0 36 FINAL Marlene Guzmán * [facility] , [address] [facility] [id number] 0 03/09 CMP BUN mg/dL 7.0 17.0 18.0 High FINAL Marlene Guzmán * [facility] , [address] [facility] [id number] 0 03/09 CMP Calci um mg/dL 8.4 10.2 8.9 FINAL Marlene Guzmán * [facility] , [address] [facility] [id number] 0 03/09 CMP Chlor nilson mmol/L 96.0 107.0 99 FINAL Marlene Guzmán * [facility] , [address] [facility] [id number] 0 03/09 CMP CO2 mmol/L 22.0 30.0 [...] hour stability window. FINAL Marleneanabel Guzmán * [facility] , [address] [facility] [id number] 0 03/09 CMP Creat inine mg/dL 0.66 1.25 0.70 FINAL Marlene Guzmán * [facility] , [address] [facility] [id number] 0 03/09 CMP GFR estim ate ml/min /1.73m ^2 97.1 GFR is calculate d using the CKD-EPI equation. FINAL Marlene Ramirez * [facility] , [address] [facility] [id number] 0 03/09 CMP Gluco se mg/dL 74.0 100.0 363 Criti sami High FINAL Marlene Ramirez * [facility] , [address] [facility] [id number] 0 03/09 CMP Potas sium mmol/L 3.5 5.1 3.9 FINAL Marlene Ramirez * [facility] , [address] [facility] [id number] 0 03/09 CMP Sodiu m mmol/L 137.0 145.0 134 Low FINAL Marlene Ramirez * [facility] , [address] [facility] [id number] 0 03/09 CMP Bilir ubin, total mg/dL 0.2 1.3 1.1 FINAL Marlene Ramirez * [facility] , [address] [facility] [id number] 0 03/09 CMP Total prote in g/dL 6.3 8.2 7.3 FINAL Marlene Guzmán * [facility] , [address] [facility] [id number] 0 03/09 CBC w/ auto diff WBC K/uL 3.0 8.9 7.1 FINAL Marlene Guzmán [place] [facility] [place] [facility] , [address] [place] [id number] 0 03/09 CBC w/ auto diff HGB g/dL 11.3 15.2 14.4 FINAL Marlene Guzmán [place] [facility] [place] [facility] , [address] [place] [id number] 0 03/09 CBC w/ auto diff PLT K/uL 113.0 364.0 179 FINAL Marlene Guzmán [place] [facility] [place] [facility] , [address] [place] [id number] 0 03/09 CBC w/ auto diff Tammy # (ANC) K/uL 1.6 6.6 4.7 FINAL Marlene Guzmán [place] [facility] [place] [facility] , [address] [place] [id number] 0 03/09 CBC w/ auto diff Tammy % % 43.0 74.0 65.7 FINAL Marlene Guzmán [place] [facility] [place] [facility] , [address] [place] [id number] 0 03/09 CBC w/ auto diff IG % % 0.0 0.5 0.6 High FINAL Marlene Guzmán [place] [facility] , [address] [place] [id number] 0 03/09 CBC w/ auto diff IG # K/uL 0.0 0.03 0.04 High FINAL Marlene Guzmán [place] [facility] [place] [facility] , [address] [place] [id number] 0 03/09 CBC w/ auto diff LY % % 14.0 41.0 25.8 FINAL Marlene Guzmán [place] [facility] [place] [facility] , [address] [place] [id number] 0 03/09 CBC w/ auto diff MO % % 6.0 15.0 6.2 FINAL Marlene Guzmán [place] [facility] [place] [facility] , [address] [place] [id number] 0 03/09 CBC w/ auto diff EO % % 0.0 7.0 1.1 FINAL Marlene Guzmán [place] [facility] [place] [facility] , [address] [place] [id number] 0 03/09 CBC w/ auto diff BA % % 0.0 2.0 0.6 FINAL Marlene Guzmán [place] [facility] [place] [facility] , [address] [place] [id number] 0 03/09 CBC w/ auto diff LY # K/uL 0.4 3.6 1.8 FINAL Marlene Guzmán [place] [facility] [place] [facility] , [address] [place] [id number] 0 03/09 CBC w/ auto diff MO # K/uL 0.2 1.3 0.4 FINAL Marlene Guzmán [place] [facility] [place] [facility] , [address] [place] [id number] 0 03/09 CBC w/ auto diff EO # K/uL 0.0 0.6 0.1 FINAL Marlene Guzmán [place] [facility] [place] [facility] , [address] [place] [id number] 0 03/09 CBC w/ auto diff BA # K/uL 0.0 0.2 0.0 FINAL Marlene Guzmán [place] [facility] [place] [facility] , [address] [place] [id number] 0 03/09 CBC w/ auto diff NRBC % #/100W BC 0.0 0.2 0.0 FINAL Marlene Guzmán [place] [facility] [place] [facility] , [address] [place] [id number] 0 03/09 CBC w/ auto diff RBC M/uL 3.9 5.1 5.08 FINAL Marlene Guzmán [place] [facility] [place] [facility] , [address] [place] [id number] 0 03/09 CBC w/ auto diff HCT % 35.0 48.0 42.9 FINAL Marlene Guzmán [place] [facility] [place] [facility] , [address] [place] [id number] 0 03/09 CBC w/ auto diff MCV fL 80.0 104.0 84.4 FINAL Marlene Guzmán [place] [facility] [place] [facility] , [address] [place] [id number] 0 03/09 CBC w/ auto diff MCH pg 26.0 35.0 28.3 FINAL Marlene Guzmán [place] [facility] [place] [facility] , [address] [place] [id number] 0 03/09 CBC w/ auto diff MCHC g/dL 30.0 35.0 33.6 FINAL Marlene Guzmán [place] [facility] , [address] [place] [id number] 0 03/09 CBC w/ auto diff MPV fL 9.5 13.4 9.6 FINAL Marlene Guzmán [place] [facility] [place] [facility] , [address] [place] [id number] 0 03/09 CBC w/ auto diff RDW % 11.4 16.1 14.20 FINAL Marlene Guzmán [place] [facility] [place] [facility] , [address] [place] [id number] 0 03/09 Total prote in g/dL 6.3 8.2 7.1 FINAL Marlene Guzmán * [place] [facility] [place] [facility] , [address] [place] [id number] 0 03/09 Album in, SPE g/dL 3.31 5.31 4.70 FINAL Marlene Guzmán * [facility] , [address] [facility] [address] [id number] 0 03/09 Alpha -1 globu tony g/dL 0.19 0.42 0.23 FINAL Marlene Guzmán * [facility] , [address] [address] [facility] [id number] 0 03/09 Alpha -2 globu tony g/dL 0.44 1.03 0.52 FINAL Marlene Guzmán * [facility] , [address] [facility] [address] [id number] 0 03/09 Beta globu tony g/dL 0.52 1.05 0.80 FINAL Marlene Guzmán * [facility] , [address] [facility] [address] [id number] 0 03/09 Gamma globu tony g/dL 0.59 1.46 0.85 FINAL Marlene Guzmán * [facility] , [address] [facility] [facility] [address] [id number] 0 03/09 Elect Gemma layton in Lab resul t note Previou sly identif ied parapro teins detecte d in gamma region. Is now 0.3 and 0.4 gm/dL. Interpr eted and signed by Luis Guillermo MD on 025 FINAL Marlene Guzmán * [facility] , [address] [facility] [facility] [id number] 0 03/09 M-spi ke, SPE, g/dL g/dL 0.0 0.0 0.3 High FINAL Marlene Guzmán * [facility] , [address] [facility] [address] [id number] 0 03/09 M-spi ke 2, SPE g/dL 0.0 0.0 0.4 High FINAL Marlene Guzmán * [facility] , [address] [facility] [id number] 0 03/09 Immun oglob ulin measu remen t IgG, quant mg/dL 610.0 1616.0 1080.49 Test performed at [facility] on a Binding Site Optilite Analyzer that uses a turbidime tric method for analysis. Patient testing should not be performed using multiple methodolo gies due to analytica l variation seen between test methodolo gies. FINAL Marlene Ramirez * [facility] , [address] [facility] [id number] 0 03/09 Immun oglob ulin measu remen t IgA, quant mg/dL 61.0 348.0 577.26 High Test performed at [facility] on a Binding Site Optilite Analyzer that uses a turbidime tric method for analysis. Patient testing should not be performed using multiple methodolo gies due to analytica l variation seen between test methodolo gies. FINAL Marlene Ramirez * [facility] , [address] [facility] [id number] 0 03/09 Immun oglob ulin measu remen t IgM, quant mg/dL 35.0 242.0 91.00 Test performed at [facility] on a Binding Site Optilite Analyzer that uses a turbidime tric method for analysis. Patient testing should not be performed using multiple methodolo gies due to analytica l variation seen between test methodolo gies. 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 History of Present Illness ([facility]): 63 y.o.?? 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 Genetic Testing ([facility]): Interval History ([facility]) She was transferred from [facility] to [facility] after surgery from 09/03-09/09/23.?? 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 Anxious, , female with somewhat [...] record:05/23/2019 Last record:05/23/2019; ) Assessment & Plan ([facility]): 63?? y.o. 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 Pathology benign. Reviewedpathology, operative findings, expected recovery.?? She is recovering well, no further restrictions.?? She can follow up with PCP/consumer science teacher as needed.? 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
--- OUTSIDE RECORDS SUMMARY | 2025-07-06 23:20 | XMS_ITS ---
Author Name Interface, [id number] lity Address [address] [facility] [address] [place] [address] [facility] Address [address] [facility] [address] [place] [address] Support Name Relationship Address Phone Greg Ch [...] FINAL [facility] [place], [address] [place] [address] 210 [facility] [id number] 0 Phone: () - 11/22 Appea ying (ua) Clear FINAL [facility] [place], [address] [place] [address] 210 [facility] [id number] 0 Phone: () - 11/22 Gluco se (ua), qual 500.0% Abnor mal FINAL [facility] [place], [address] [facility] 210 [facility] [id number] [phone] Phone: () - 11/22 Bilir ubin (ua) Negativ e FINAL [facility] [place], [address] [place] [address] 210 [facility] [phone] 0 Phone: () - 11/22 Urina lysis , aceto ne or keton e chapo s measu remen t Negativ e FINAL [facility] [place], [address] [facility] 210 [place] [id number] 0 Phone: () - 11/22 Speci fic gravi ty (ua) 1.005 1.02 1.025% Abnor mal FINAL [facility] [place], [address] [facility] 210 [place] [id number] 0 Phone: () - 11/22 Blood (ua) Negativ e FINAL [facility] [place], [address] [place] [address] 210 [place] [id number] 0 Phone: () - 11/22 pH (ua) 5.0 8.0 6.0% FINAL [facility] [place], [address] [place] [address] 210 [facility] [phone] 0 Phone: () - 11/22 Prote in (ua) Negativ e FINAL [facility] [place], [address] [place] [address] 210 [place] [id number] 0 Phone: () - 11/22 Urobi linog en (ua) 0.2 1.0 0.2% FINAL [facility] [place], [address] [place] [address] 210 [place] [id number] 0 Phone: () - 11/22 Nitri te (ua) Negativ e FINAL [facility] [place], [address] [place] [address] 210 [place] [id number] 0 Phone: () - 11/22 Leuko cyte jerson ase (ua), qual Negativ e FINAL [facility] [place], [address] [place] [address] 210 [place] [id number] 0 Phone: () - 11/22 UA comme nt 1 Dipstic k negativ e- Culture ordered per provide r FINAL [facility]sa [facility] [place], [address] [place] [address] 210 [place] [id number] 0 Phone: () - 11/22 Urine cultu re panel CULTU RE, URINE , ROUTI NE SEE NOTE Abnor mal 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 04/18 Total prote in g/dL 6.3 8.2 6.9 FINAL Marlene Guzmán * [facility], [address] [facility] [address] [place] [address] [id number] 0 04/18 Album in, SPE g/dL 3.31 5.31 3.97 FINAL Marlene Guzmán * [facility], [facility] [address] [place] [address] [id number] 04/18 Alpha -1 globu tony g/dL 0.19 0.42 0.26 FINAL Marlene Guzmán * [facility], [facility] [address] [place] [address] [id number] 04/18 Alpha -2 globu tony g/dL 0.44 1.03 0.63 FINAL Marlene Guzmán * [facility] [address] [place] [address] [id number] 0 04/18 Beta globu tony g/dL 0.52 1.05 0.95 FINAL Marlene Guzmán * [facility], [address] [facility] [address] [place] [address] [id number] 0 04/18 Gamma globu tony g/dL 0.59 1.46 1.10 FINAL Marlene Guzmán * [facility], [address] [facility] [address] [place] [address] [id number] 0 04/18 Elect Gemma layton in Lab resul t note Previou sly identif ied parapro teins detecte d in gamma region. Were 0.3 and 0.4 gm/dL, now 0.3 and 0.3 gm/dL. Interpr eted and signed by Adrienne Swanson MD on 024 FINAL Marlene Guzmán * [facility], [facility] [address] [place] [address] [id number] 0 04/18 M-spi ke, SPE, g/dL g/dL 0.0 0.0 0.3 High FINAL Marleneanabel Guzmán * [facility], [address] [facility] [id number] 0 04/18 M-spi ke 2, SPE g/dL 0.0 0.0 0.3 High FINAL Marlene Guzmán * [facility], [address] [facility] [address] [facility] [id number] 04/18 Immun oglob ulin measu remen t IgG, quant mg/dL 610.0 1616.0 946.67 Test performed at [facility] on a Binding Site Optilite Analyzer that uses a turbidime tric method for analysis. Patient testing should not be performed using multiple methodolo gies due to analytica l variation seen between test methodolo gies. FINAL Marlene Guzmán * [facility], [address] [id number] 0 04/18 Immun oglob ulin measu remen t IgA, quant mg/dL 61.0 348.0 493.08 High Test performed at [facility] on a Binding Site Optilite Analyzer that uses a turbidime tric method for analysis. Patient testing should not be performed using multiple methodolo gies due to analytica l variation seen between test methodolo gies. FINAL Marlene Guzmán * [facility], [address] [id number] 0 04/18 Immun oglob ulin measu remen t IgM, quant mg/dL 35.0 242.0 75.62 Test performed at [facility] on a Binding Site Optilite Analyzer that uses a turbidime tric method for analysis. Patient testing should not be performed using multiple methodolo gies due to analytica l variation seen between test methodolo gies. FINAL Marlene Guzmán * [facility] [place] [facility] [place], [address] [facility] [id number] 0 04/18 Free kappa / lambd a with K/L ratio , serum [place] 2 light chain , free, serum , mg/dL mg/dL 0.33 1.94 3.62 High Test performed at [facility] on a Binding Site Optilite Analyzer that uses a turbidime tric method for analysis. Patient testing should not be performed using multiple methodolo gies due to analytica l variation seen between test methodolo gies. FINAL Marlene Stroud [facility], [address] [id number] 0 04/18 Free kappa / lambd a with K/L ratio , serum Lambd a light chain , free, serum , mg/dL mg/dL 0.57 2.63 3.13 High Test performed at [facility] on a Binding Site Optilite Analyzer that uses a turbidime tric method for analysis. Patient testing should not be performed using multiple methodolo gies due to analytica l variation seen between test methodolo gies. FINAL Marlene [facility], [address] [facility] [address] [id number] 0 04/18 Free kappa / lambd a with K/L ratio , serum K/L light chain ratio , free, serum 0.26 1.65 1.16% FINAL Marlene [facility], [address] [facility] [address] [id number] 0 04/18 CBC w/ auto diff WBC K/uL 3.0 8.9 7.0 FINAL Marlene [facility] [place], [address] [facility] [address] [facility] [id number] 0 Phone: () - 04/18 CBC w/ auto diff HGB g/dL 11.3 15.2 14.0 FINAL Marlene pagan [facility] - [place], [address] [place] [id number] 0 Phone: () - 04/18 CBC w/ auto diff PLT K/uL 113.0 364.0 164 FINAL Marlene [facility] - [place], [address] [place] [id number] 0 Phone: () - 04/18 CBC w/ auto diff Tammy # (ANC) K/uL 1.6 6.6 4.5 FINAL Marlene [facility] - [place], [address] [place] [id number] 0 Phone: () - 04/18 CBC w/ auto diff Tammy % % 43.0 74.0 64.0 FINAL Marlene Ramirez [facility] [place], [address] [place] [id number] 0 Phone: () - 04/18 CBC w/ auto diff IG % % 0.0 0.5 0.3 FINAL Marlene Ramirez [facility] [place], [address] [place] [id number] 0 Phone: () - 04/18 CBC w/ auto diff IG # K/uL 0.0 0.03 0.02 FINAL Marlene Ramirez [facility] [place], [address] [place] [id number] 0 Phone: () - 04/18 CBC w/ auto diff LY % % 14.0 41.0 28.2 FINAL Marlene Guzmán [facility] [place], [address] [place] [id number] 0 Phone: () - 04/18 CBC w/ auto diff MO % % 6.0 15.0 6.0 FINAL Marlene Guzmán [facility] [place], [address] [place] [id number] 0 Phone: () - 04/18 CBC w/ auto diff EO % % 0.0 7.0 1.1 FINAL Marlene Ramirez [facility] [place], [address] [place] [id number] 0 Phone: () - 04/18 CBC w/ auto diff BA % % 0.0 2.0 0.4 FINAL Marlene [facility] [place], [address] [place] [id number] 0 Phone: () - 04/18 CBC w/ auto diff LY # K/uL 0.4 3.6 2.0 FINAL Marlene [facility] - [place], [address] [place] [id number] 0 Phone: () - 04/18 CBC w/ auto diff MO # K/uL 0.2 1.3 0.4 FINAL Marlene [facility] - [place], [address] [place] [id number] 0 Phone: () - 04/18 CBC w/ auto diff EO # K/uL 0.0 0.6 0.1 FINAL Marlene [facility] - [place], [address] [place] [id number] 0 Phone: () - 04/18 CBC w/ auto diff BA # K/uL 0.0 0.2 0.0 FINAL Marlene Rub[facility] - [place], [address] [place] [id number] 0 Phone: () - 04/18 CBC w/ auto diff NRBC % #/100W BC 0.0 0.2 0.0 FINAL Marlene [facility] - [place], [address] [place] [id number] 0 Phone: () - 04/18 CBC w/ auto diff RBC M/uL 3.9 5.1 4.84 FINAL Marlene [facility] - [place], [address] [place] [id number] 0 Phone: () - 04/18 CBC w/ auto diff HCT % 35.0 48.0 40.4 FINAL Marlene Guzmán [facility] [place], [address] [place] [id number] 0 Phone: () - 04/18 CBC w/ auto diff MCV fL 80.0 104.0 83.5 FINAL Marlene Guzmán [facility] [place], [address] [place] [id number] 0 Phone: () - 04/18 CBC w/ auto diff MCH pg 26.0 35.0 28.9 FINAL Marlene Guzmán [facility] [place], [address] [place] [id number] 0 Phone: () - 04/18 CBC w/ auto diff MCHC g/dL 30.0 35.0 34.7 FINAL Marlene Guzmán [facility] [place], [address] [place] [id number] 0 Phone: () - 04/18 CBC w/ auto diff MPV fL 9.5 13.4 9.7 FINAL Marlene Guzmán [facility] [place], [address] [place] [id number] 0 Phone: () - 04/18 CBC w/ auto diff RDW % 11.4 16.1 13.80 FINAL Marlene Guzmán [facility] [place], [address] [place] [id number] 0 Phone: () - 04/18 CMP Album in g/dL 3.5 5.0 4.0 FINAL Marlene Guzmán * [facility] [place], [address] [place] [id number] 0 04/18 CMP Alkal ine phosp hatas e U/L 36.0 125.0 105 FINAL Marlene Guzmán * [facility] [place], [address] [place] [id number] 0 04/18 CMP ALT/S GPT U/L 0.0 34.0 35 High FINAL Marlene Guzmán * [facility], [address] [facility] [address] [id number] 0 04/18 CMP AST/S GOT U/L 14.0 36.0 44 High FINAL Marlene Guzmán * [facility], [address] [facility] [address] [id number] 0 04/18 CMP BUN mg/dL 7.0 17.0 21.0 High FINAL Marlene Guzmán * [facility], [address] [facility] [address] [id number] 0 04/18 CMP Calci um mg/dL 8.4 10.2 8.8 FINAL Marlene Guzmán * [facility], [address] [facility] [address] [id number] 0 04/18 CMP Chlor nilson mmol/L 96.0 107.0 106 FINAL Marlene Guzmán * [facility], [address] [facility] [address] [id number] 0 04/18 CMP CO2 mmol/L 22.0 30.0 [...] hour stability window. FINAL Marlene Guzmán * [facility], [address] [facility] [address] [id number] 0 04/18 CMP Creat inine mg/dL 0.66 1.25 0.70 FINAL Marlene Guzmán * [facility], [address] [facility] [id number] 0 04/18 CMP GFR estim ate ml/min /1.73m ^2 97.7 GFR is calculate d using the CKD-EPI equation. FINAL Marlene Guzmán * [facility], [address] [facility] [id number] 0 04/18 CMP Gluco se mg/dL 74.0 100.0 267 High FINAL Marlene Guzmán * [facility], [address] [facility] [id number] 0 04/18 CMP Potas sium mmol/L 3.5 5.1 4.0 FINAL Marlene Guzmán * [facility], [address] [facility] [id number] 0 04/18 CMP Sodiu m mmol/L 137.0 145.0 136 Low FINAL Marlene Guzmán * [facility], [address] [facility] [id number] 0 04/18 CMP Bilir ubin, total mg/dL 0.2 1.3 1.0 FINAL Marlene Guzmán * [facility], [address] [facility] [id number] 0 04/18 CMP Total prote in g/dL 6.3 8.2 7.3 FINAL Marlene Guzmán * [facility], [address] [facility] [id number] 0 04/18 [facility] 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 Patient testing should not be performed using multiple methodolo gies due to analytica l variation seen between test methodolo gies. FINAL Marlene Guzmán * [facility] , [address] [facility] [address] [facility] [id number] 0 03/09 Free kappa / lambd a with K/L ratio , serum Lambd a light chain , free, serum , mg/dL mg/dL 0.57 2.63 3.83 High Test performed at [facility] on a Binding Site Optilite Analyzer that uses a turbidime tric method for analysis. Patient testing should not be performed using multiple methodolo gies due to analytica l variation seen between test methodolo gies. FINAL Marlene Guzmán * [facility] , [address] [facility] [address] [id number] 0 03/09 Free kappa / lambd a with K/L ratio , serum K/L light chain ratio , free, serum 0.26 1.65 1.14% FINAL Marlene Guzmán * [facility] , [address] [facility] [address] [id number] 0 03/09 CMP Album in g/dL 3.5 5.0 3.8 FINAL Marlene Guzmán * [facility] , [address] [facility] [address] [id number] 0 03/09 CMP Alkal ine phosp hatas e U/L 36.0 125.0 106 FINAL Marlene Guzmán * [facility] , [address] [facility] [address] [id number] 0 03/09 CMP ALT/S GPT U/L 0.0 34.0 37 High FINAL Marlene Guzmán * [facility] , [address] [facility] [address] [id number] 0 03/09 CMP AST/S GOT U/L 14.0 36.0 36 FINAL Marlene Ramirez * [facility] , [address] [facility] [address] [facility] [id number] 0 03/09 CMP BUN mg/dL 7.0 17.0 18.0 High FINAL Marlene Guzmán * [facility] , [address] [facility] [address] [facility] [id number] 0 03/09 CMP Calci um mg/dL 8.4 10.2 8.9 FINAL Marlene Guzmán * [facility] , [address] [facility] [address] [facility] [id number] 0 03/09 CMP Chlor nilson mmol/L 96.0 107.0 99 FINAL Marlene Guzmán * [facility] , [address] [facility] [address] [facility] [id number] 0 03/09 CMP CO2 mmol/L 22.0 30.0 [...] hour stability window. FINAL Marlene Guzmán * [facility] , [address] [facility] [address] [facility] [id number] 0 03/09 CMP Creat inine mg/dL 0.66 1.25 0.70 FINAL Marlene Guzmán * [facility] , [address] [facility] [address] [facility] [id number] 0 03/09 CMP GFR estim ate ml/min /1.73m ^2 97.1 GFR is calculate d using the CKD-EPI equation. FINAL Marlene Guzmán * [facility] , [address] [facility] [address] [id number] 0 03/09 CMP Gluco se mg/dL 74.0 100.0 363 Criti sami High FINAL Marlene Guzmán * [facility] , [address] [facility] [address] [facility] [id number] 0 03/09 CMP Potas sium mmol/L 3.5 5.1 3.9 FINAL Marlene Guzmán * [facility] , [address] [facility] [address] [facility] [id number] 0 03/09 CMP Sodiu m mmol/L 137.0 145.0 134 Low FINAL Marlene Guzmán * [facility] , [address] [facility] [address] [facility] [id number] 0 03/09 CMP Bilir ubin, total mg/dL 0.2 1.3 1.1 FINAL Marlene Guzmán * [facility] , [address] [facility] [address] [facility] [id number] 0 03/09 CMP Total prote in g/dL 6.3 8.2 7.3 FINAL Marlene Guzmán * [facility] , [address] [facility] [address] [facility] [id number] 0 03/09 CBC w/ auto diff WBC K/uL 3.0 8.9 7.1 FINAL Marlene Guzmán [place] [facility] [place] [facility] , [address] [place] [id number] 0 03/09 CBC w/ auto diff HGB g/dL 11.3 15.2 14.4 FINAL Marlene Guzmán [place] [facility] [place] [facility] , [address] [place] [id number] 0 03/09 CBC w/ auto diff PLT K/uL 113.0 364.0 179 FINAL Marlene Guzmán [place] [facility] [place] [facility] , [address] [place] [id number] 0 03/09 CBC w/ auto diff Tammy # (ANC) K/uL 1.6 6.6 4.7 FINAL Marlene Guzmán [place] [facility] [place] [facility] , [address] [place] [id number] 0 03/09 CBC w/ auto diff Tammy % % 43.0 74.0 65.7 FINAL Marlene Guzmán [place] [facility] [place] [facility] , [address] [place] [id number] 0 03/09 CBC w/ auto diff IG % % 0.0 0.5 0.6 High FINAL Marlene Guzmán [place] [facility] [place] [facility] , [address] [place] [id number] 0 03/09 CBC w/ auto diff IG # K/uL 0.0 0.03 0.04 High FINAL Marlene Guzmán [place] [facility] [place] [facility] , [address] [place] [id number] 0 03/09 CBC w/ auto diff LY % % 14.0 41.0 25.8 FINAL Marlene Guzmán [place] [facility] [place] [facility] , [address] [place] [id number] 0 03/09 CBC w/ auto diff MO % % 6.0 15.0 6.2 FINAL Marlene Guzmán [place] [facility] [place] [facility] , [address] [place] [id number] 0 03/09 CBC w/ auto diff EO % % 0.0 7.0 1.1 FINAL Marlene Guzmán [place] [facility] [place] [facility] , [address] [place] [id number] 0 03/09 CBC w/ auto diff BA % % 0.0 2.0 0.6 FINAL Marlene Guzmán [place] [facility] [place] [facility] , [address] [place] [id number] 0 03/09 CBC w/ auto diff LY # K/uL 0.4 3.6 1.8 FINAL Marlene Guzmán [place] [facility] [place] [facility] , [address] [place] [id number] 0 03/09 CBC w/ auto diff MO # K/uL 0.2 1.3 0.4 FINAL Marlene Guzmán [place] [facility] [place] [facility] , [address] [place] [id number] 0 03/09 CBC w/ auto diff EO # K/uL 0.0 0.6 0.1 FINAL Marlene Guzmán [place] [facility] [place] [facility] , [address] [place] [id number] 0 03/09 CBC w/ auto diff BA # K/uL 0.0 0.2 0.0 FINAL Marlene Guzmán [place] [facility] [place] [facility] , [address] [place] [id number] 0 03/09 CBC w/ auto diff NRBC % #/100W BC 0.0 0.2 0.0 FINAL Marlene Guzmán [place] [facility] [place] [facility] , [address] [place] [id number] 0 03/09 CBC w/ auto diff RBC M/uL 3.9 5.1 5.08 FINAL Marlene Guzmán [place] [facility] [place] [facility] , [address] [place] [id number] 0 03/09 CBC w/ auto diff HCT % 35.0 48.0 42.9 FINAL Marlene Guzmán [facility] , [address] [place] [facility] [id number] 0 03/09 CBC w/ auto diff MCV fL 80.0 104.0 84.4 FINAL Marlene Guzmán [facility] , [address] [facility] [address] [place] [facility] [id number] 0 03/09 CBC w/ auto diff MCH pg 26.0 35.0 28.3 FINAL Marlene Guzmán [facility] , [address] [facility] [address] [facility] [id number] 0 03/09 CBC w/ auto diff MCHC g/dL 30.0 35.0 33.6 FINAL Marlene Guzmán [facility] , [address] [facility] [address] [facility] [id number] 0 03/09 CBC w/ auto diff MPV fL 9.5 13.4 9.6 FINAL Marlene Guzmán [facility] , [address] [facility] [address] [facility] [id number] 0 03/09 CBC w/ auto diff RDW % 11.4 16.1 14.20 FINAL Marlene Guzmán [facility] , [address] [facility] [address] [facility] [id number] 0 03/09 Immun oglob ulin measu remen t IgG, quant mg/dL 610.0 1616.0 1080.49 Test performed at [facility] on a Binding Site Optilite Analyzer that uses a turbidime tric method for analysis. Patient testing should not be performed using multiple methodreal rocha due to analytica l variation seen between test methodreal rocha. FINAL Marlene Guzmán * [facility] [employer] [facility] , [address] [facility] [id number] 0 03/09 Immun oglob ulin measu remen t IgA, quant mg/dL 61.0 348.0 577.26 High Test performed at [facility] on a Binding Site Optilite Analyzer that uses a turbidime tric method for analysis. Patient testing should not be performed using multiple methodolo gies due to analytica l variation seen between test methodolo gies. FINAL Marlene Guzmán * [employer] [facility] , [facility] [address] [id number] 0 03/09 Immun oglob ulin measu remen t IgM, quant mg/dL 35.0 242.0 91.00 Test performed at [facility] on a Binding Site Optilite Analyzer that uses a turbidime tric method for analysis. Patient testing should not be performed using multiple methodolo gies due to analytica l variation seen between test methodolo gies. FINAL Marlene Guzmán * [employer] [facility] , [facility] [address] [id number] 0 03/09 Total prote in g/dL 6.3 8.2 7.1 FINAL Marlene Guzmán * [employer] [facility] , [facility] [address] [place] [address] [id number] 0 03/09 Album in, SPE g/dL 3.31 5.31 4.70 FINAL Marlene Guzmán * [employer] [facility] , [facility] [address] [id number] 0 03/09 Alpha -1 globu tony g/dL 0.19 0.42 0.23 FINAL Marlene Guzmán * [employer] [facility] , [facility] [address] [id number] 0 03/09 Alpha -2 globu tony g/dL 0.44 1.03 0.52 FINAL Marlene Guzmán * [employer] [facility] , [facility] [address] [id number] 0 03/09 Beta globu tony g/dL 0.52 1.05 0.80 FINAL Marlene Guzmán * [employer] [facility] , [address] [facility] [address] [id number] 0 03/09 Gamma globu tony g/dL 0.59 1.46 0.85 FINAL Marlene Guzmán * [employer] [facility] , [address] [facility] [address] [id number] 0 03/09 Elect Gemma layton in Lab resul t note Previou sly identif ied parapro teins detecte d in gamma region. Is now 0.3 and 0.4 gm/dL. Interpr eted and signed by Luis Guillermo MD on 025 FINAL Marlene Guzmán * [employer] [facility] , [facility] [address] [id number] 0 03/09 M-spi ke, SPE, g/dL g/dL 0.0 0.0 0.3 High FINAL Marlene Guzmán * [employer] [facility] , [address] [facility] [address] [id number] 0 03/09 M-spi ke 2, SPE g/dL 0.0 0.0 0.4 High FINAL Marlene Guzmán * 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 History of Present Illness ([employer]): 63 y.o.?? 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 Anxious, , female tearful??throughout visit. [...] record:05/23/2019 Last record:05/23/2019; ) Assessment & Plan ([employer]): 63?? y.o. with abnormal uterine bleeding/PMB [...]
--- OUTSIDE RECORDS SUMMARY | 2025-07-06 23:20 | XMS_ITS | Data Portability ---
Author Organization [facility], [id number] Address [address] [address] Assessment No assessment recorded. Plan of Treatment Reminders Order Date Submit Date Provider Last Modified By Organization Details Last Modified Time Details Appointments None recorded. Lab cytology report, thin prep, smear or scraping, cervical or vaginal 2021 022 [place] [facility], [address] [place], [address], 10:11:04 Referral None recorded. Procedures None recorded. Surgeries None recorded. Imaging None recorded. Medication Orders None recorded. Patient TargetsNo targets recorded. Patient InstructionsNo instructions recorded. Reason for Referral None Reported. Results Created Date Observation Date Name Description Value Unit Range Abnormal Flag Note LastModifiedBy Organization Detail LastModifiedTime 12/05/1912/05/2021 IGP, APTIM A HPV, RFX 16/18 ,45 HPV aptima Negati ve negati ve This nucle ic acid ampli ficat ion test detec ts fourt een high- risk HPV types (16,1 8,31, 33,35 ,39,4 5,51, 52,56 ,58,5 9,66, 68) witho ut diffe renti ation . Not Available [facility] (Lab) [address] [address], [place], [address], 12/09/2021 10:11:04 12/05/19 22 12/09/2021 IGP, APTIM A HPV, RFX 16/18 ,45 interpretati on NILM,Q C NEGAT RANDA FOR INTRA EPITH ELIAL LESIO N OR MALMARCUS ELENA . THIS SPECI MEN WAS RESCR EENED PART OF OUR QUALI TY CONTR OL PROGR AM. Not Available [facility] (Lab) [address] [address], [place], [address], 12/09/2021 10:11:04 12/05/19 22 12/09/2021 IGP, APTIM A HPV, RFX 16/18 ,45 category: NIL Negat randa for Intra epith elial Lesio n Not Available [facility] (Lab) [address] [address], [place], [address], 12/09/2021 10:11:04 12/05/19 22 12/09/2021 IGP, APTIM A HPV, RFX 16/18 ,45 adequacy: ENDO Satis facto ry for evalu ation . Endoc ervic al and/o r squam ous metap lasti c cells (endo cervi sami compo nent) are prese nt. Not Available [facility] (Lab) [address] [address], [place], [address], 12/09/2021 10:11:04 12/05/19 22 12/09/2021 IGP, APTIM A HPV, RFX 16/18 ,45 clinician provided ICD10: Glen bailon Z01.4 19 Not Available [facility] (Lab) [address] [address], [place], [address], 12/09/2021 10:11:04 12/05/19 22 12/09/2021 IGP, APTIM A HPV, RFX 16/18 ,45 performed by: Adeola Beasley am (ASCP ) Not Available [facility] (Lab) [address] [address], [place], [address], 12/09/2021 10:11:04 12/05/19 22 12/09/2021 IGP, APTIM A HPV, RFX 16/18 ,45 QC reviewed by: Glen Avendano h, Cytot echno logis t (ASCP ) Not Available [facility] (Lab) [address] [facility] [address], [place], [address], 12/09/2021 10:11:04 12/05/19 22 12/09/2021 IGP, APTIM A HPV, RFX 16/18 ,45 note: Glen bailon The Pap smear is a scree fay test fausto miller to aid in the detec tion of amado ligna nt and malig nant condi tions of the uteri ne cervi x. It is not a diagn ostic proce dure and shoul d not be used as the sole means of detec ting cervi sami cance r. Both false -posi tive and false -nega tive repor ts do occur . Not Available [facility] (Lab) [address] [facility] [address], [place], [address], 12/09/2021 10:11:04 12/05/19 22 12/09/2021 IGP, APTIM A HPV, RFX 16/18 ,45 test methodology: Glen bailon This liqui d based ThinP rep(R ) pap test was scree paul with the use of an image guide ananda elizabeth Not Available [facility] (Lab) [address] [facility] [address], [place], [address], 12/09/2021 10:11:04 05/27/20 23 05/27/2023 SURGI SAMI PATHO LOGY EXAM surgical pathology exam SEE RESULT S BELOW SPECI MEN SOURC E Biops y Endom etriu m Path repor t.com ments Imp Spec: Surgi sami Patho logy Repor t Case: [id number] Autho siomara dinh Provi wilder: Jeannette Christie MD Colle cted: 05/27 04:37 PM Order ing Locat ion: [facility] iew [facility] Recei harper: 05/27 08:13 PM [facility] Patho logis t: Topher Spencer MD Speci men: Endom etriu m Path repor t.fin al Dx Spec: A. Endom etria l biops y: - Fragm ent of benig n inact randa endom etriu m and cohes randa morul ar metap lasia fragm ents Elect pedro prado dalila d by Topher Spencer MD on 06/01 at 11:08 PM Path repor t.com ments Imp Spec: The speci men is fragm ented . The prese nce of metap lasti c morul es may be ident ified in a backg round of disor dered or hyper plast ic endom etriu m. No appre ciabl e cohes randa endom etriu m is prese nt to furth er evalu ate these possi bilit ies. Given the prese nce of these fragm ents, clini sami corre latio n for repea t biops y with a more adequ ate sampl ing of cohes randa endom etriu m shoul d be consi dered . Path repor t.rel evant Hx Spec: 63-ye ar-ol d femal e. Post menop ausal bleed ing Path repor t.leslie ss Spec: A(). Endom etriu m, : The speci men is recei harper in forma tony, label ed with the patie nt's name, medic al recor d numbe r and other ident ifyin g infor matio n desig nated endo metri um. It consi sts of multi ple fragm ents of brown -kan friab le soft tissu e measu ring 1.1 x 0.8 x 0.2 cm in aggre gate. The fragm ents are submi tted entir anthony in forma tony wrapp ed in lens paper in 1 casse tte. [ATIYA Richardson( CP)] Path repor t.shakeel guillermina pic Spec Other Stn: The secti ons show blood and fragm ented porti ons of inact randa endom etriu m with cohes randa fragm ents of metap lasti c morul es with focal areas of necro sis witho ut cytol ogic atypi a. Path repor t.com ments Imp Spec: The techn ical compo nent of this testi ng was compl eted at [facility] [place] [facility] Not Available [facility] [id number], [place], [address], 06/02/2023 00:10:11 Result Notes None recorded. Problems Name Problem SNOMED Code Status Onset Date Resolution Date Notes Provider Name and Address Organization Details Recorded Time Schizophr enia 12626988 Active Schizoaffe ctive disorder- Pt states her new psychiatri st diagnosed her as anxiety/de pression and paranoia. Not Available [facility] 0 01:08:39 Uncontrol led type 2 diabetes mellitus 701704018 Active pt not taking meds. Not Available [facility] 0 01:08:39 Atypical glandular cells on cervical Papanicol aou smear 535095858 Active 08/01 MYRA- outside clinic Not Available [facility] 0 01:08:39 Depressiv e disorder 11113775 Active Not Available [facility] 0 01:08:39 Malignant melanoma 724852377 Active Chelsy Nelson (TERMED) null, [place] - [facility] 2 09:57:26 Anemia 852502226 Active Chelsy Nelson (TERMED) [place], [place] [facility] 2 09:57:44 Menstruat ion finding Active 2011 Treatment options discussed. Pt will try Ibuprofen. Provara, endometria l ablation and hysterecto my were discussed. Not Available [facility] 0 01:08:39 Problem Notes None recorded. Procedures Surgical History Date Name Laterality Status Provider Name and Address Organization Details Recorded Time 2022 HYSTEROSCOPY, SURGICAL, WITH BIOPSY OF ENDOMETRIUM AND/OR POLYPECTOMY (SURG) completed Candelaria Phillips [place] - [facility] 06/29/2023 08:28:42 2022 Endometrial Biopsy Procedure Note ([facility]) [place] [address] [facility],[address], [place], [address], [place] - [facility] 05/27/2023 15:55:19 2022 endometrial biopsy completed Buck Ashby [place] - [facility] 06/02/2023 13:09:00 2021 Date of Last Pap Smear completed Alba Coburn [place] [facility] 12/11/2021 14:41:46 2016 Date of Last Colonoscopy completed Judy Ghosh [place] [facility] 12/04/2021 09:37:29 colposcopy of cervix completed Not Available [facility] 04/01/2020 01:05:18 Repair of knee cartilage completed Not Available [facility] 04/01/2020 01:05:18 tooth extraction completed Not Available [facility] 04/01/2020 01:05:19 Cholecystectomy completed Not Available [facility] 04/01/2020 01:05:19 dilatation and curettage NEC with hysteroscopy NEC completed Not Available [facility] 04/01/2020 01:05:19 hysterosalpingograph y NOS completed Not Available [facility] 04/01/2020 01:05:19 Imaging Results None recorded. Procedure Notes None recorded. Medical Equipment None Reported. Allergies Allergen ID Allergen Name Allergen Category Reaction Reaction Severity Criticality Documentation Date Start Date Code Code System Note Provider Name and Address Organization Details Recorded Time 673955 Substance with sulfonami de structure and antibacte rial mechanism of action (substanc e) medicatio n Not available Not available Not available 03/29/2020 54918 8003 SNOMED *Note : 01/10 - hives Not Available [facility] 0 16:57:05 968820 metformin hydrochlo ride medicatio n Not available Not available Not available 03/29/2020 07669 3 RxNorm *Note : 01/10 - Diahr kesha. adult Not Available [facility] 0 16:57:05 858939 cephalexi n monohydra te medicatio n Not available Not available Not available 03/29/2020 59417 8 RxNorm *Note : 01/10 - Not Available [facility] 0 16:57:05 254187 metoprolo l succinate medicatio n Not available Not available Not available 03/29/2020 57710 4 RxNorm *Note : 01/10 - anxie ty Not Available [facility] 0 16:57:06 693061 gabapenti n medicatio n rash Not available Not available 12/04/2021 36420 RxNorm Chelsy Corrigan (TERMED) null, [place] - [facility] 2 10:14:13 368831 metronida zole medicatio n headache Not available Not available 12/04/2021 6922 RxNorm Chelsy Corrigan (TERMED) [place], [place] [facility] 2 10:14:52 480973 risperido ne medicatio n Not available Not available Not available 12/04/2021 07868 RxNorm Phych ologi sami SE Chelsy Corrigan (TERMED) [place] [facility] 2 10:15:21 673875 tolterodi ne medicatio n Not available Not available Not available 12/04/2021 12824 5 RxNorm Chelsy Corrigan (TERMED[place] [facility] 2 10:15:50 262226 trimethop rim medicatio n Not available Not available Not available 12/04/2021 64698 RxNorm Chelsy Corrigan (TERMED[place] [facility] 2 10:16:05 447894 vancomyci n medicatio n headache Not available Not available 12/04/2021 11484 RxNorm Chelsy Corrigan (TERMED[place] [facility] 2 10:16:33 839611 Abilify medicatio n Not available Not available Not available 12/04/2021 51968 3 RxNorm Restl essne ss Chelsy Corrigan (TERMED[place] [facility] 2 10:17:11 229305 talc medicatio n Not available Not available Not available 12/04/2021 17950 RxNorm Chelsy Corrigan (TERMED[place] [facility] 2 10:17:32 409178 Product containin g 3-hydroxy -3-methyl glutaryl- coenzyme A reductase inhibitor (product) medicatio n myalgias (muscle pain) Not available Not available 12/04/2021 76822 009 SNOMED Chelsy Nelson (TERMED) [place], [place] [facility] 2 10:17:56 333056 Kenalog medicatio n Not available Not available Not available 12/04/202169076 7 RxNorm Red Face Chelsy Nelson (TERMED) null[facility] [place] [facility] 2 10:18:24 128100 Latuda medicatio n Not available Not available Not available 12/04/2021 73309 32 RxNorm Restl ess Legs Chelsy Nelson (TERMED) null, [place] - [place] [facility] 2 10:18:41 Medications Name Sig Start Date Stop Date Status Note LastModified by Organization Details LastModified Time cyclobenzap rine 10 mg tablet 12/04 completed Not Available Not Available Not Available amoxicillin 500 mg capsule TAKE 1 CAPSULE BY MOUTH THREE TIMES DAILY. 12/04 completed Not Available Not Available Not Available methocarbam ol 500 mg tablet active Not Available Not Available Not Available metformin 500 mg tablet TAKE 1/2 TABLET BY MOUTH DAILY IN THE MORNING AND 1 TABLET IN THE EVENING WITH FOOD. active Not Available Not Available No t Available Tylenol 500 mg capsule Take 2 tablets every 6 hours by oral route. active Not Available Not Available No t Available ibuprofen 800 mg tablet 12/04 completed Not Available Not Available Not Available benzonatate 200 mg capsule TAKE 1 CAPSULE BY MOUTH THREE TIMES DAILY FOR 1 WEEK active Not Available Not Available No t Available hydrocodone 5 mg-acetamin ophen 325 mg tablet TAKE 1 TABLET BY MOUTH TWICE DAILY NEEDED FOR SEVERE PAIN active Not Available Not Available No t Available olanzapine 5 mg tablet 12/04 completed Not Available Not Available Not Available Zeasorb AF 2 % topical powder APPLY TO THE AFFECTED AREA(S) BY TOPICAL ROUTE 2 TIMES PER DAY IN THEMORNIN G AND EVENING active Not Available Not Available No t Available olanzapine 2.5 mg tablet TAKE 1 TABLET BY MOUTH EVERY DAY AT BEDTIME active Not Available Not Available No t Available omeprazole 40 mg capsule,del ayed release TAKE 1 CAPSULE BY MOUTH EVERY DAY 1 HOUR BEFORE A MEAL active Not Available Not Available No t Available meloxicam 7.5 mg tablet active Not Available Not Available Not Available lorazepam 0.5 mg tablet TAKE 1 TABLET BY MOUTH 30-60 MINUTES PRIOR TO TOOTH EXTRACTIO N active Not Available Not Available No t Available dicyclomine 20 mg tablet TAKE 1 TABLET BY MOUTH FOUR TIMES DAILY NEEDED FOR ABDOMINAL PAIN 12/04 completed Not Available Not Available Not Available OneTouch Ultra Test strips USE TO TEST BLOOD SUGAR ONCE DAILY OR DIRECTED active Not Available Not Available No t Available tacrolimus 0.1 % topical ointment APPLY TOPICALLY TO FACE RASH TWICE DAILY NEEDED active Not Available Not Available No t Available ibuprofen 400 mg tablet active Not Available Not Available Not Available fluoxetine 10 mg capsule active Not Available Not Available Not Available nitroglycer in 0.[address] 1 TABLET UNDER THE TONGUE EVERY 5 MINUTES FOR 3 DOSES. IF SYMPTOMS PERSIST 5 MINUTES AFTER 1ST DOSE CALL 911 12/04 completed Not Available Not Available Not Available sertraline 25 mg tablet TAKE 1 TABLET BY MOUTH EVERY DAY WITH 50MG TABLET TO EQAUL 75MG DAILY. active Not Available Not Available No t Available diclofenac sodium 75 mg tablet,prashanth yed release active Not Available Not Available Not Available dexamethaso ne sodium phosphate 4 mg/mL injection solution USE FOR PHYSICAL THERAPY IONTOPHOR ESIS active Not Available Not Available No t Available methylpredn isolone 4 mg tablets in a dose pack FOLLOW PACKAGE DIRECTION S active Not Available Not Available No t Available albuterol sulfate HFA 90 mcg/actuati on aerosol inhaler INHALE 2 PUFFS INTO THE LUNGS FOUR TIMES DAILY NEEDED FOR SHORTNESS OF BREATH OR DIFFICULT Y BREATHING 12/04 completed Not Available Not Available Not Available ketoconazol e 2 % topical cream APPLY TOPICALLY TO RASH UNDER BREASTS TWICE DAILY NEEDED active Not Available Not Available No t Available fluocinonid e 0.05 % topical cream USE 1 APPLICATI ON THREE TIMES DAILY NEEDED TOPICALLY . SPOT TREAT RASHY AREAS FROM NECK DOWN FOR UP TO 3 WEEKS AT A TIME. active Not Available Not Available No t Available hydroxyzine HCl 10 mg tablet active Not Available Not Available Not Available fluoxetine 20 mg capsule TAKE 1 CAPSULE BY MOUTH EVERY DAY active Not Available Not Available No t Available fluticasone propionate 50 mcg/actuati on nasal spray,suspe nsion SHAKE LIQUID AND USE 1 SPRAY IN EACH NOSTRIL DAILY active Not Available Not Available No t Available metformin ER 500 mg tablet,exte nded release 24 hr active Not Available Not Available Not Available clotrimazol e 1 % topical cream APPLY TOPICALLY 2 TIMES DAILY FOR 15 DAYS. active Not Available Not Available No t Available sertraline 50 mg tablet TAKE 1 TABLET BY MOUTH DAILY active Not Available Not Available No t Available clindamycin 1 % lotion USE ONE APPLICATI ON TOPICALLY TWICE DAILY TO INNER THIGHS AND INNER ELBOW 12/04 completed Not Available Not Available Not Available cyclobenzap rine 5 mg tablet active Not Available Not Available Not Available chlorhexidi ne gluconate 0.12 % mouthwash active Not Available Not Available No t Available calcium carbonate active Not Available Not Available No t Available Lantus Solostar U-100 Insulin 100 unit/mL (3 mL) subcutaneou s pen ADMINISTE R 5 UNITS UNDER THE SKIN AT BEDTIME active Not Available Not Available No t Available diclofenac 1 % topical gel APPLY 2 GRAMS TOPICALLY TO THE AFFECTED AREA FOUR TIMES DAILY NEEDED FOR MODERATE PAIN active Not Available Not Available No t Available Ozempic 0.25 mg or 0.5 mg (2 mg/1.5 mL) subcutaneou s pen injector active Not Available Not Available Not Available BD Jocelyn 2nd Gen Pen Needle 32 gauge x USE 1 PEN NEEDLE WEEKLY OR DIRECTED active Not Available Not Available No t Available OneTouch Delica Plus Lancet 33 gauge USE TO TEST BLOOD SUGARS THREE TIMES DAILY. active Not Available Not Available No t Available Blink Tears 0.25 % eye drops active Not Available Not Available Not Available Paxlovid 300 mg (150 mg x 2)-100 mg tablets in a dose pack TK 2 NIRMATREL VIR TS AND 1 RITONAVIR T TOGETHER PO BID FOR 5 DAYS TWICE DAILY FOR 5 DAYS active Not Available Not Available No t Available Vitals Date Recorded Body height Body mass index (BMI) Body weight Systolic And Diastolic Provider Name and Address Organization Details Last Updated DateTime 12/04/2021 167.64 cm 50.8 kg/m2 892600.6 g 132/74 mm[Hg] Chelsy Nelson (TERMED) [place] 12/04/2021 09:59:44 Date Recorded Body height Systolic And Diastolic Provider Name and Address Organization Details Last Updated DateTime 05/13/2023 167.64 cm 142/82 mm[Hg] Chelsy Nelson (TERMED) [facility] SYSTEM CONSULTANT 05/13/2023 12:25:33 Date Recorded Body height Systolic And Diastolic Provider Name and Address Organization Details Last Updated DateTime 06/17/2023 167.64 cm 126/84 mm[Hg] Chelsy Nelson (TERMED) [facility] SYSTEM CONSULTANT 06/17/2023 14:56:08 Social History Question Answer Notes LastModified by [employer] Details LastModified Time Tobacco Smoking Status Never Smoker Judy Ghosh maritza, [facility] CONSULTANT 12/04/2021 09:33:45 What Is Your Level Of Caffeine Consumption? None Information not available 12/04/2021 Which Illicit Or Recreational Drugs Have You Used? Denies Illicit Substance Abuse Information not available 12/04/2021 What Is Your Relationship Status? Information not available 12/04/2021 Sex: Unknown Functional Status Question Answer Note LastModified by [employer] Details LastModified Time Do you use any illicit or recreational drugs? No Information not available 12/04/2021 What is your level of alcohol consumption? None Information not available 12/04/2021 What is your exercise level? Occasional Minimal Amount of Exercise (Once weekly or less) [email or web address] Information not available 04/01/2020 Mental Status None recorded. Family History Relationship Description Onset Age of this Age Resolved Age Notes LastModified by Organization Details LastModified Time Mother Benign neoplasm of colon Colon Polyp, Benign Not available 04/01/2020 01:06:34 Mother Arthropathy Arthri tis Not available 04/01/2020 01:06:34 Mother Benign essential hypertension Hypert ension Not available 04/01/2020 01:06:34 Mother Family history of Cardiovascul ar disease Heart diseas e Not available 04/01/2020 01:06:34 Mother Family history of stroke Stroke Not available 03/23 01:06:34 Mother Family history of diabetes mellitus Diabet es Not available 04/01/2020 01:06:34 Brother Benign essential hypertension Hypert ension Not available 04/01/2020 01:06:34 Father Family history of Cardiovascul ar disease Heart diseas e Not available 04/01/2020 01:06:34 Father Family history of malignant neoplasm of gastrointest inal tract Cancer Colon Not available 04/01/2020 01:06:34 Paternal Grandfather Family history of malignant neoplasm of gastrointest inal tract Cancer Colon Not available 04/01/2020 01:06:34 Notes:04/01/2020: *Relative: Aunt *Problem: Cancer Breast Medical History Condition Response Psych- Depression Y Cardiology- High Cholesterol Y Psych- Anxiety Disorder Y Hematology- Anemia Y Endocrinology- Diabetes Y Psych-Other Y Cardiology- High Blood Pressure Y ID-Other Pulmonary- Sleep Apnea Y Rheumatology- Arthritis Y Gynecological History Statement/Question Response History of Abnormal PAP Y Date of Last Pap Smear 12/04/2021 Age at Menarche: 13 HPV Test Negative Date of Last Colonoscopy 08/23/2016 Obstetrics History GPAL:G 4 P 3 0 1 3 Type Value Multiple Births 0 Full Term 3 Induced 0 Spontaneous 1 Premature 0 Living 3 Ectopics 0 Total 4 Past Encounters Encounter ID Performer Location Encounter Start Date Encounter Closed Date Diagnosis/Indication Diagnosis SNOMED-CT Code Diagnosis ICD10 Code Diagnosis IMO Codes Diagnosis Note [id number] JEANNETTE DAVE MD [id number] ,[address] [place] [address] 12/04/2021 09:40:49 12/04/2021 11:00:14 Gynecologic examination 85471429 Z01.419 Female uri nary stress incontinence 90341132 N39.3 kegel exercises and weight loss. 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 Pt to finish progestero ne. Total time spent in reviewing patient's history and outside records, discussion of patient's concerns, examinatio n, interpreti ng test results, ordering additional tests, counseling with shared decision making, sending prescripti ons and documentat ion was __20_ minutes. Insulin tr eated type 2 diabetes mellitus 716739622 Z79.4 Treated by PCP Cirrhosis - non-alcoholic 827771192 K74.60 Treated by GI Obesity 377332273 E66.01 [id number] JEANNETTE DAVE MD [id number] [place] ,[address] [place] [address] 05/27/2023 14:49:28 05/27/2023 16:04:34 Postmenopausal bleeding 37392031 N95.0 endometria l biopsy done. If precancero us or cancer results she will be referred to Gynecology Oncologist s. If hyperplasi a pt to use Provera or Mirena IUD. [id number] JEANNETTE DAVE MD [id number] [facility] [place] ,[address] [place] [id number] 06/17/2023 14:41:54 07/01/2023 15:38:34 Endometrium thickened 980217453 R93.89 Possible precancero us cells on endometria l biopsy. Pt is at high risk for endometria l cancer due to her many health issues. Risks and benefits of the surgery were discussed. Pt will have a pre op exam with her PMD for optimizati on of her health and clearance for surgery. Total time spent in reviewing patient's history and outside records, discussion of patient's concerns, examinatio n, interpreti ng test results, ordering additional tests, counseling with shared decision making, sending prescripti ons and documentat ion was__30___ minutes. Health Concerns Section Related Observation LastModified by Organization Detai ls LastModified Time None Recorded Concern Status LastModified by Organization Details LastModified Time None Recorded Advance Directives Directive None Recorded Payers Insurance Date Sequence Insurance Name Policy Number Policy Ross Covered Member ID Ross Member ID Guarantor Name 11/04/2023 1 MEDICARE B-[place]: [facility] [employer] Vero Camposarti [id number] Vero Dan Carl 11/04/2023 2 [place] Vero Camposarti [id number] Vero Henry Notes Date Note Type Note Provider Name and Address Organization Details Recorded Time 022 text/ht ml Annual Postmenopausal ([facility])[place] [id number], [place], [address], [place] - [facility] 12/04/2021 10:47:14 023 text/ht ml Post Menopausal Bleeding ([facility])Reported by PatientPostmenopausal BleedingFor reason for visit, patient reportspostmenopausal bleeding. For patient relationship with practice, patient reportsestablished patient. For presents for, patient reportsa new evaluation(pt does have a h/o pmb with work up last being done in 2018. pt had menorrhagia prior to menopause.). Pt stopped bleeding from 2018-this month when she was in the hospital with severe back pain and received an injection in her back. She was given provera while she was in the hospital and is taking it now at [facility] where she was sent after her hospitalization. [facility] to follow all medical recommendation. Pt is known to have multiple medical problems and many areas causing pain. See PMH. US in the hospital the EC was 4mm. There is a 2.7 cm anterior intramural [place] [id number], [place], [address], [place] - [employer] 05/20/2023 19:10:15 023 text/ht ml Post Menopausal Bleeding ([facility])Reported by PatientPostmenopausal BleedingFor reason for visit, patient reportspostmenopausal bleeding. For patient relationship with practice, patient reportsestablished patient. For presents for, patient reportsa new evaluation(pt does have a h/o pmb with work up last being done in 2019. pt had menorrhagia prior to menopause.). Pt stopped bleeding from 2018-this month when she was in the hospital with severe back pain and received an injection in her back. She was given provera while she was in the hospital and is taking it now at [facility] where she was sent after her hospitalization. See PMH. US in the hospital the EC was 4mm. There is a 2.7 cm anterior intramural fibroid. Pt has continued to bleed. She is here for an endometrial biopsy[place] [id number], [place], [address], [facility] [employer] 05/27/2023 16:02:42 023 text/ht ml Vero is here today to discuss her upcoming surgery. She was found to have potential precancerous tissue o her recent biospy. She had multiple questions that were answered and she took notes throughout.Path report.final Dx Spec:A. Endometrial biopsy:- Fragment of benign inactive endometrium and cohesive morular metaplasiafragments Path report.comments Imp Spec:The specimen is fragmented. The presence of metaplastic morules may beidentified in a background of disordered orhyperplastic endometrium. No appreciable cohesive endometrium is present tofurther evaluate these possibilities. Giventhe presence of these fragments, clinical correlation for repeat biopsy with sindi adequate sampling of cohesiveendometrium should be considered. [place] [id number] [facility],[address], [place], [address], [facility] [employer] 06/28/2023 08:36:11 OBGyn Episode Ob Episode Information Episode Created Date Number of Fetuses Patient Bloodtype Patient rh Status Prepregnancy Weight lbs Domestic Partner Domestic Partner Phone Father Name Sketch Artist Status 12/05/19 22 1 CLOSED Fetus Data First Name Last Name Admitted to NICU Weight (g) Sex Living Outcome Pediatric Complications Fetus ID Race Codes Race Delivery Type 4223.84 8704 M Full Term [id number] Luis Calculation Initial Luis Date Initial Exam Date Initial Exam Provider Initial Ultrasound Date Last Menstrual Period Date Ultra Sound Weeks Gestation 0 Eighteen To Twenty Week Luis Update Ultra Sound Date Fundal Height At Umbil Quickening Date Ultra Sound Latest Weeks Gestation Final Luis Confirmed By Final Luis Confirmed Date Final Luis Date Ultra Sound Latest Days Gestation 0 0 Menstrual History Last Menstrual Date Menses Monthly On Bcp Conception Prior Menses Frequency Hcg Plus Date Menarche Onset Age Delivery Information Delivery Date Delivery Type Labor Anesthesia Weeks Gestation Incision Type Labor Labor Length Hrs Delivered By Post Complications Tubal Sterilization Discharge Date Comments 1 Discharge Information Feeding Method Contraceptive Method Maternal HG B and HCT Levels Ob Episode Information Episode Created Date Number of Fetuses Patient Bloodtype Patient rh Status Prepregnancy Weight lbs Domestic Partner Domestic Partner Phone Father Name Sketch Artist Status 12/05/19 22 1 CLOSED Fetus Data First Name Last Name Admitted to NICU Weight (g) Sex Living Outcome Pediatric Complications Fetus ID Race Codes Race Delivery Type 3968.93 M Full Term [id number] Luis Calculation Initial Luis Date Initial Exam Date Initial Exam Provider Initial Ultrasound Date Last Menstrual Period Date Ultra Sound Weeks Gestation 0 Eighteen To Twenty Week Luis Update Ultra Sound Date Fundal Height At Umbil Quickening Date Ultra Sound Latest Weeks Gestation Final Luis Confirmed By Final Luis Confirmed Date Final Luis Date Ultra Sound Latest Days Gestation 0 0 Menstrual History Last Menstrual Date Menses Monthly On Bcp Conception Prior Menses Frequency Hcg Plus Date Menarche Onset Age Delivery Information Delivery Date Delivery Type Labor Anesthesia Weeks Gestation Incision Type Labor Labor Length Hrs Delivered By Post Complications Tubal Sterilization Discharge Date Comments 3 39 Discharge Information Feeding Method Contraceptive Method Maternal HG B and HCT Levels Ob Episode Information Episode Created Date Number of Fetuses Patient Bloodtype Patient rh Status Prepregnancy Weight lbs Domestic Partner Domestic Partner Phone Father Name Sketch Artist Status 12/05/19 22 1 CLOSED Fetus Data First Name Last Name Admitted to NICU Weight (g) Sex Living Outcome Pediatric Complications Fetus ID Race Codes Race Delivery Type 4535.92 M Full Term [id number] Luis Calculation Initial Luis Date Initial Exam Date Initial Exam Provider Initial Ultrasound Date Last Menstrual Period Date Ultra Sound Weeks Gestation 0 Eighteen To Twenty Week Luis Update Ultra Sound Date Fundal Height At Umbil Quickening Date Ultra Sound Latest Weeks Gestation Final Luis Confirmed By Final Luis Confirmed Date Final Luis Date Ultra Sound Latest Days Gestation 0 0 Menstrual History Last Menstrual Date Menses Monthly On Bcp Conception Prior Menses Frequency Hcg Plus Date Menarche Onset Age Delivery Information Delivery Date Delivery Type Labor Anesthesia Weeks Gestation Incision Type Labor Labor Length Hrs Delivered By Post Complications Tubal Sterilization Discharge Date Comments 9 42 Discharge Information Feeding Method Contraceptive Method Maternal HG B and HCT Levels
--- OUTSIDE RECORDS SUMMARY | 2025-07-06 23:20 | XMS_ITS ---
Author Name Interface, N2Nrbzlca lity Address [address] [facility] [address] [place] [address] [facility] On[facility] Address [address] [facility] [address] [place] [address] Support Name Relationship Address Phone Greg Henry [...] m easurement 04/02/2026 LAB_ORDER Free kappa / mtital bda with K/L ratio, serum 04/02/2026 LAB_ORDER CBC w/ auto diff 04/02/2026 LAB_ORDER Serum Protein El ectrophoresis (SPEP) 04/02/2026 LAB_ORDER CMP Reason for Visit OV 20 MIN Encounters Date Name 10/11/2023 Dysuria 10/11/2023 EIN 10/11/2023 General body pain Diagnostic Results Date Type Test Units Lower Limit Upper Limit Result Flag Comments Status Ordered By Specimen Source Lab Address 11/05 [facility] other lab See electroencephalographic technologist d 11/08 Mis other lab See electroencephalographic technologist d 11/22 Color (ua) Yellow FINAL [facility] [place], [address] [facility] [address] [place] [phone] 0 Phone: () - 11/22 Appea ying (ua) Clear FINAL [facility] [place], [address] [facility] [address] [place] [id number] 0 Phone: () - 11/22 Gluco se (ua), qual 500.0% Abnor mal FINAL [facility] [place], [address] [facility] [address] [place] [phone] 0 Phone: () - 11/22 Bilir ubin (ua) Negativ e FINAL [facility] [place], [address] [facility] [address] [place] [phone] 0 Phone: () - 11/22 Urina lysis , aceto ne or keton e chapo s measu remen t Negativ e FINAL [facility] [place], [address] [facility] [address] [place] [phone] 0 Phone: () - 11/22 Speci fic gravi ty (ua) 1.005 1.02 1.025% Abnor mal FINAL [facility] [place], [address] [facility] [address] [place] [phone] 0 Phone: () - 11/22 Blood (ua) Negativ e FINAL [facility] [place], [address] [facility] [address] [place] [phone] 0 Phone: () - 11/22 pH (ua) 5.0 8.0 6.0% FINAL [facility] [place], [address] [facility] [address] [place] [phone] 0 Phone: () - 11/22 Prote in (ua) Negativ e FINAL [facility] [place], [address] [place] [address] [address] [place] [phone] 0 Phone: () - 11/22 Urobi linog en (ua) 0.2 1.0 0.2% FINAL [facility] [place], [address] [place] [address] [address] [place] [id number] 0 Phone: () - 11/22 Nitri te (ua) Negativ e FINAL [facility] [place], [address] [facility] [address] [place] [phone] 0 Phone: () - 11/22 Leuko cyte jerson ase (ua), qual Negativ e FINAL [facility] [place], [address] [facility] [address] [place] [phone] 0 Phone: () - 11/22 UA comme nt 1 Dipstic k negativ e- Culture ordered per provide r FINAL [facility] [place], [address] [facility] [address] [facility] [phone] 0 Phone: () - 11/22 Urine cultu re panel CULTU RE, URINE , ROUTI NE SEE NOTE Abnor mal CULTURE, 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 FINAL [facility]rell [facility] [address] [facility] [id number] 4 12/18 [facility] other lab See electroencephalographic technologist d 04/18 Total prote in g/dL 6.3 8.2 6.9 FINAL Marlene Ramirez * [facility], [address] [id number] 0 04/18 Album in, SPE g/dL 3.31 5.31 3.97 FINAL Marlene Guzmán * [facility], [address] [place] [id number] 0 04/18 Alpha -1 globu tony g/dL 0.19 0.42 0.26 FINAL Marlene Guzmán * [facility], [address] [place] [id number] 0 04/18 Alpha -2 globu tony g/dL 0.44 1.03 0.63 FINAL Marlene Guzmán * [facility], [address] [place] [id number] 0 04/18 Beta globu tony g/dL 0.52 1.05 0.95 FINAL Marlene Ramirez * [facility], [address] [place] [id number] 0 04/18 Gamma globu tony g/dL 0.59 1.46 1.10 FINAL Marlene Guzmán * [facility], [address] [place] [id number] 0 04/18 Gemma Rodriguez in Lab resul t note Previou sly identif ied parapro teins detecte d in gamma region. Were 0.3 and 0.4 gm/dL, now 0.3 and 0.3 gm/dL. Interpr eted and signed by Adrienne Swanson MD on 024 FINAL Marlene Guzmán * [facility], [address] [facility] [address] [place] [id number] 0 04/18 M-spi ke, SPE, g/dL g/dL 0.0 0.0 0.3 High FINAL Marlene Guzmán * [facility], [address] [facility] [address] [place] [id number] 0 04/18 M-spi ke 2, SPE g/dL 0.0 0.0 0.3 High FINAL Marleneanabel Guzmán * [facility], [facility] [address] [place] [address] [id number] 0 04/18 Immun oglob ulin measu remen t IgG, quant mg/dL 610.0 1616.0 946.67 Test performed at [facility] on a Binding [employer] Optilite Analyzer that uses a turbidime tric method for analysis. Patient testing should not be performed using multiple methodolo gies due to analytica l variation seen between test methodolo gies. FINAL Marleneanabel Guzmán * [facility], [facility] [address] [place] [address] [id number] 0 04/18 Immun oglob ulin measu remen t IgA, quant mg/dL 61.0 348.0 493.08 High Test performed at [facility] on a Binding [employer] Optilite Analyzer that uses a turbidime tric method for analysis. Patient testing should not be performed using multiple methodolo gies due to analytica l variation seen between test methodolo gies. FINAL Marlene Guzmán * [facility], [address] [place] [address] [address] [place] [address] [id number] 0 04/18 Immun oglob ulin measu remen t IgM, quant mg/dL 35.0 242.0 75.62 Test performed at [facility] on a Binding Site Optil[employer] Analyzer that uses a turbidime tric method for analysis. Patient testing should not be performed using multiple methodolo gies due to analytica l variation seen between test methodolo gies. FINAL Marlene Forte a [facility], [facility] [address] [place] [id number] 0 04/18 Free kappa / lambd a with K/L ratio , serum [place] light chain , free, serum , mg/dL mg/dL 0.33 1.94 3.62 High Test performed at [facility] on a Binding Site [employer] Analyzer that uses a turbidime tric method for analysis. Patient testing should not be performed using multiple methodolo gies due to analytica l variation seen between test methodolo gies. FINAL Marlene Rubi a [facility], [address] [facility] [address] [place] [id number] 0 04/18 Free kappa / lambd a with K/L ratio , serum Lambd a light chain , free, serum , mg/dL mg/dL 0.57 2.63 3.13 High Test performed at [facility] on a Binding [employer] Optilite Analyzer that uses a turbidime tric method for analysis. Patient testing should not be performed using multiple methodolo gies due to analytica l variation seen between test methodolo gies. FINAL Marlene Rubi a [facility], [address] [place] [id number] 0 04/18 Free kappa / lambd a with K/L ratio , serum K/L light chain ratio , free, serum 0.26 1.65 1.16% FINAL Marlene Forteot a [facility], [address] [place] [id number] 0 04/18 CBC w/ auto diff WBC K/uL 3.0 8.9 7.0 FINAL Marlene Rubi [facility], [address] [facility] [id number] 0 Phone: () - 04/18 CBC w/ auto diff HGB g/dL 11.3 15.2 14.0 FINAL [facility] [place], [address] [place] [id number] 0 Phone: () - 04/18 CBC w/ auto diff PLT K/uL 113.0 364.0 164 FINAL [facility] [place], [address] [place] [id number] 0 Phone: () - 04/18 CBC w/ auto diff Tammy # (ANC) K/uL 1.6 6.6 4.5 FINAL Marlene [facility] - [place], [address] [place] [id number] 0 Phone: () - 04/18 CBC w/ auto diff Tammy % % 43.0 74.0 64.0 FINAL [facility] - [place], [address] [place] [id number] 0 Phone: () - 04/18 CBC w/ auto diff IG % % 0.0 0.5 0.3 FINAL [facility] - [place], [address] [place] [id number] 0 Phone: () - 04/18 CBC w/ auto diff IG # K/uL 0.0 0.03 0.02 FINAL Marlene [facility] - [place], [address] [place] [id number] 0 Phone: () - 04/18 CBC w/ auto diff LY % % 14.0 41.0 28.2 FINAL Marlene Rubi a [facility] - [place], [address] [place] [id number] 0 Phone: () - 04/18 CBC w/ auto diff MO % % 6.0 15.0 6.0 FINAL Marlene Guzmán [facility] [place], [address] [place] [id number] 0 Phone: () - 04/18 CBC w/ auto diff EO % % 0.0 7.0 1.1 FINAL [facility] - [place], [address] [place] [id number] 0 Phone: () - 04/18 CBC w/ auto diff BA % % 0.0 2.0 0.4 FINAL [facility] - [place], [address] [place] [id number] 0 Phone: () - 04/18 CBC w/ auto diff LY # K/uL 0.4 3.6 2.0 FINAL Marlene Guzmán [facility] [place], [address] [place] [id number] 0 Phone: () - 04/18 CBC w/ auto diff MO # K/uL 0.2 1.3 0.4 FINAL Marlene Ramirez [facility] [place], [address] [place] [id number] 0 Phone: () - 04/18 CBC w/ auto diff EO # K/uL 0.0 0.6 0.1 FINAL Marlene Ramirez [facility] [place], [address] [place] [id number] 0 Phone: () - 04/18 CBC w/ auto diff BA # K/uL 0.0 0.2 0.0 FINAL Marlene Ramirez [facility] [place], [address] [place] [id number] 0 Phone: () - 04/18 CBC w/ auto diff NRBC % #/100W BC 0.0 0.2 0.0 FINAL Marlene Guzmán [facility] [place], [address] [place] [id number] 0 Phone: () - 04/18 CBC w/ auto diff RBC M/uL 3.9 5.1 4.84 FINAL Marlene uGzmán [facility] - [place], [address] [place] [id number] 0 Phone: () - 04/18 CBC w/ auto diff HCT % 35.0 48.0 40.4 FINAL Marlene Rubi a [facility] - [place], [address] [place] [id number] 0 Phone: () - 04/18 CBC w/ auto diff MCV fL 80.0 104.0 83.5 FINAL Marlene [facility] - [place], [address] [place] [id number] 0 Phone: () - 04/18 CBC w/ auto diff MCH pg 26.0 35.0 28.9 FINAL Marlene Rubi a [facility] - [place], [address] [place] [id number] 0 Phone: () - 04/18 CBC w/ auto diff MCHC g/dL 30.0 35.0 34.7 FINAL Marlene Rubi a [facility] - [place], [address] [place] [id number] 0 Phone: () - 04/18 CBC w/ auto diff MPV fL 9.5 13.4 9.7 FINAL Marlene Rubi a [facility] - [place], [address] [place] [id number] 0 Phone: () - 04/18 CBC w/ auto diff RDW % 11.4 16.1 13.80 FINAL Marlene Rubi a [facility] - [place], [address] [place] [id number] 0 Phone: () - 04/18 CMP Album in g/dL 3.5 5.0 4.0 FINAL Marlene Guzmán * [facility] [place], [address] [place] [id number] 0 04/18 CMP Alkal ine phosp hatas e U/L 36.0 125.0 105 FINAL Marlene Guzmán * [facility] [place], [address] [facility] [id number] 0 04/18 CMP ALT/S GPT U/L 0.0 34.0 35 High FINAL Marlene Guzmán * [facility], [address] [facility] [id number] 0 04/18 CMP AST/S GOT U/L 14.0 36.0 44 High FINAL Marlene Guzmán * [facility], [address] [facility] [id number] 0 04/18 CMP BUN mg/dL 7.0 17.0 21.0 High FINAL Marlene Guzmán * [facility], [address] [facility] [id number] 0 04/18 CMP Calci um mg/dL 8.4 10.2 8.8 FINAL Marlene Guzmán * [facility], [address] [facility] [id number] 0 04/18 CMP Chlor nilson mmol/L 96.0 107.0 106 FINAL Marlene Guzmán * [facility], [address] [facility] [id number] 0 04/18 CMP CO2 mmol/L 22.0 30.0 [...] hour stability window. FINAL Marlene Guzmán * [facility], [address] [facility] [id number] 0 04/18 CMP Creat inine mg/dL 0.66 1.25 0.70 FINAL Marlene Guzmán * [facility], [address] [facility] [address] [place] [id number] 0 04/18 CMP GFR estim ate ml/min /1.73m ^2 97.7 GFR is calculate d using the CKD-EPI equation. FINAL Marlene Stroud [facility], [address] [facility] [address] [place] [id number] 0 04/18 CMP Gluco se mg/dL 74.0 100.0 267 High FINAL Marlene Guzmán * [facility], [facility] [address] [place] [id number] 0 04/18 CMP Potas sium mmol/L 3.5 5.1 4.0 FINAL Marlene Guzmán * [facility], [address] [facility] [address] [place] [id number] 0 04/18 CMP Sodiu m mmol/L 137.0 145.0 136 Low FINAL Marlene Guzmán * [facility], [address] [facility] [address] [place] [id number] 0 04/18 CMP Bilir ubin, total mg/dL 0.2 1.3 1.0 FINAL Marlene Guzmán * [facility], [address] [facility] [facility] [address] [place] [id number] 0 04/18 CMP Total prote in g/dL 6.3 8.2 7.3 FINAL Marlene Guzmán * [facility], [address] [facility] [address] [place] [id number] 0 04/18 [facility] other lab See electroencephalographic technologist d 12/20 Mis other lab See electroencephalographic technologist d 12/20 [facility] other lab See electroencephalographic technologist d 03/09 Free kappa / lambd a with K/L ratio , serum [place] light chain , free, serum , mg/dL mg/dL 0.33 1.94 4.35 High Test performed at [facility] on a Binding [employer] Analyzer that uses a turbidime tric method for analysis. Patient testing should not be performed using multiple methodolo gies due to analytica l variation seen between test methodolo gies. FINAL Marlene Guzmán * [facility] , [address] [facility] [facility] [id number] 0 03/09 Free kappa / lambd a with K/L ratio , serum Lambd a light chain , free, serum , mg/dL mg/dL 0.57 2.63 3.83 High Test performed at [facility] on a Binding Site [employer] Analyzer that uses a turbidime tric method for analysis. Patient testing should not be performed using multiple methodolo gies due to analytica l variation seen between test methodolo gies. FINAL Marlene Guzmán * [facility] , [address] [facility] [address] [place] [id number] 0 03/09 Free kappa / lambd a with K/L ratio , serum K/L light chain ratio , free, serum 0.26 1.65 1.14% FINAL Marlene Guzmán * [facility] , [address] [facility] [address] [place] [id number] 0 03/09 CMP Album in g/dL 3.5 5.0 3.8 FINAL Marlene Guzmán * [facility] , [address] [facility] [address] [place] [id number] 0 03/09 CMP Alkal ine phosp hatas e U/L 36.0 125.0 106 FINAL Marlene Guzmán * [facility] , [address] [facility] [facility] [id number] 0 03/09 CMP ALT/S GPT U/L 0.0 34.0 37 High FINAL Marlene Guzmán * [facility] , [address] [facility] [id number] 0 03/09 CMP AST/S GOT U/L 14.0 36.0 36 FINAL Marlene Guzmán * [facility] , [address] [facility] [id number] 0 03/09 CMP BUN mg/dL 7.0 17.0 18.0 High FINAL Marelne Guzmán * [facility] , [address] [facility] [id number] 0 03/09 CMP Calci um mg/dL 8.4 10.2 8.9 FINAL Marlene Guzmán * [facility] , [address] [facility] [id number] 0 03/09 CMP Chlor nilson mmol/L 96.0 107.0 99 FINAL Marlene Guzmán * [facility] , [address] [facility] [id number] 0 03/09 CMP CO2 mmol/L 22.0 30.0 [...] hour stability window. FINAL Marleneanabel Guzmán * [facility] , [address] [facility] [id number] 0 03/09 CMP Creat inine mg/dL 0.66 1.25 0.70 FINAL Marlene Guzmán * [facility] , [address] [facility] [id number] 0 03/09 CMP GFR estim ate ml/min /1.73m ^2 97.1 GFR is calculate d using the CKD-EPI equation. FINAL Marlene Ramirez * [facility] , [address] [facility] [id number] 0 03/09 CMP Gluco se mg/dL 74.0 100.0 363 Criti sami High FINAL Marlene Ramirez * [facility] , [address] [facility] [id number] 0 03/09 CMP Potas sium mmol/L 3.5 5.1 3.9 FINAL Marlene Ramirez * [facility] , [address] [facility] [id number] 0 03/09 CMP Sodiu m mmol/L 137.0 145.0 134 Low FINAL Marlene Ramirez * [facility] , [address] [facility] [id number] 0 03/09 CMP Bilir ubin, total mg/dL 0.2 1.3 1.1 FINAL Marlene Ramirez * [facility] , [address] [facility] [id number] 0 03/09 CMP Total prote in g/dL 6.3 8.2 7.3 FINAL Marlene Gumzán * [facility] , [address] [facility] [id number] 0 03/09 CBC w/ auto diff WBC K/uL 3.0 8.9 7.1 FINAL Marlene Guzmán [place] [facility] [place] [facility] , [address] [place] [id number] 0 03/09 CBC w/ auto diff HGB g/dL 11.3 15.2 14.4 FINAL Marlene Guzmán [place] [facility] [place] [facility] , [address] [place] [id number] 0 03/09 CBC w/ auto diff PLT K/uL 113.0 364.0 179 FINAL Marlene Guzmán [place] [facility] [place] [facility] , [address] [place] [id number] 0 03/09 CBC w/ auto diff Tammy # (ANC) K/uL 1.6 6.6 4.7 FINAL Marlene Guzmán [place] [facility] [place] [facility] , [address] [place] [id number] 0 03/09 CBC w/ auto diff Tammy % % 43.0 74.0 65.7 FINAL Marlene Guzmán [place] [facility] [place] [facility] , [address] [place] [id number] 0 03/09 CBC w/ auto diff IG % % 0.0 0.5 0.6 High FINAL Marlene Guzmán [place] [facility] [place] [facility] , [address] [place] [id number] 0 03/09 CBC w/ auto diff IG # K/uL 0.0 0.03 0.04 High FINAL Marlene Guzmán [place] [facility] [place] [facility] , [address] [place] [id number] 0 03/09 CBC w/ auto diff LY % % 14.0 41.0 25.8 FINAL Marlene Guzmán [place] [facility] [place] [facility] , [address] [place] [id number] 0 03/09 CBC w/ auto diff MO % % 6.0 15.0 6.2 FINAL Marlene Guzmán [place] [facility] [place] [facility] , [address] [place] [id number] 0 03/09 CBC w/ auto diff EO % % 0.0 7.0 1.1 FINAL Marlene Guzmán [place] [facility] [place] [facility] , [address] [place] [id number] 0 03/09 CBC w/ auto diff BA % % 0.0 2.0 0.6 FINAL Marlene Guzmán [place] [facility] [place] [facility] , [address] [place] [id number] 0 03/09 CBC w/ auto diff LY # K/uL 0.4 3.6 1.8 FINAL Marlene Guzmán [place] [facility] [place] [facility] , [address] [place] [id number] 0 03/09 CBC w/ auto diff MO # K/uL 0.2 1.3 0.4 FINAL Marlene Guzmán [place] [facility] [place] [facility] , [address] [place] [id number] 0 03/09 CBC w/ auto diff EO # K/uL 0.0 0.6 0.1 FINAL Marlene Guzmán [place] [facility] [place] [facility] , [address] [place] [id number] 0 03/09 CBC w/ auto diff BA # K/uL 0.0 0.2 0.0 FINAL Marlene Guzmán [place] [facility] [place] [facility] , [address] [place] [id number] 0 03/09 CBC w/ auto diff NRBC % #/100W BC 0.0 0.2 0.0 FINAL Marlene Guzmán [place] [facility] [place] [facility] , [address] [place] [id number] 0 03/09 CBC w/ auto diff RBC M/uL 3.9 5.1 5.08 FINAL Marlene Guzmán [place] [facility] [place] [facility] , [address] [place] [id number] 0 03/09 CBC w/ auto diff HCT % 35.0 48.0 42.9 FINAL Marlene Guzmán [place] [facility] [place] [facility] , [address] [place] [id number] 0 03/09 CBC w/ auto diff MCV fL 80.0 104.0 84.4 FINAL Marlene Guzmán [place] [facility] [place] [facility] , [address] [place] [id number] 0 03/09 CBC w/ auto diff MCH pg 26.0 35.0 28.3 FINAL Marlene Guzmán [place] [facility] [place] [facility] , [address] [place] [id number] 0 03/09 CBC w/ auto diff MCHC g/dL 30.0 35.0 33.6 FINAL Marlene Guzmán [place] [facility] [place] [facility] , [address] [place] [id number] 0 03/09 CBC w/ auto diff MPV fL 9.5 13.4 9.6 FINAL Marlene Guzmán [place] [facility] [place] [facility] , [address] [place] [id number] 0 03/09 CBC w/ auto diff RDW % 11.4 16.1 14.20 FINAL Marlene Guzmán [place] [facility] [place] [facility] , [address] [place] [id number] 0 03/09 Total prote in g/dL 6.3 8.2 7.1 FINAL Marlene Guzmán * [place] [facility] [place] [facility] , [address] [place] [id number] 0 03/09 Album in, SPE g/dL 3.31 5.31 4.70 FINAL Marlene Guzmán * [facility] , [address] [place] [id number] 0 03/09 Alpha -1 globu tony g/dL 0.19 0.42 0.23 FINAL Marlene Guzmán * [facility] , [address] [facility] [id number] 0 03/09 Alpha -2 globu tony g/dL 0.44 1.03 0.52 FINAL Marlene Guzmán * [facility] , [address] [place] [id number] 0 03/09 Beta globu tony g/dL 0.52 1.05 0.80 FINAL Marlene Guzmán * [facility] , [address] [facility], [place] [id number] 0 03/09 Gamma globu tony g/dL 0.59 1.46 0.85 FINAL Marlene Guzmán * [facility] , [address] [place] [id number] 0 03/09 Elect Gemma layton in Lab resul t note Previou sly identif ied parapro teins detecte d in gamma region. Is now 0.3 and 0.4 gm/dL. Interpr eted and signed by Luis Guillermo MD on 025 FINAL Marlene Guzmán * [facility] , [address] [facility] [id number] 0 03/09 M-spi ke, SPE, g/dL g/dL 0.0 0.0 0.3 High FINAL Marlene Guzmán * [facility] , [address] [place] [id number] 0 03/09 M-spi ke 2, SPE g/dL 0.0 0.0 0.4 High FINAL Marlene Guzmán * [facility] , [address] [facility] [id number] 0 03/09 Immun oglob ulin measu remen t IgG, quant mg/dL 610.0 1616.0 1080.49 Test performed at [facility] on a Binding Site Optilite Analyzer that uses a turbidime tric method for analysis. Patient testing should not be performed using multiple methodolo gies due to analytica l variation seen between test methodolo gies. FINAL Marlene Ramirez * [facility] , [address] [facility] [id number] 0 03/09 Immun oglob ulin measu remen t IgA, quant mg/dL 61.0 348.0 577.26 High Test performed at [facility] on a Binding Site Optilite Analyzer that uses a turbidime tric method for analysis. Patient testing should not be performed using multiple methodolo gies due to analytica l variation seen between test methodolo gies. FINAL Marlene Ramirez * [facility] , [address] [facility] [id number] 0 03/09 Immun oglob ulin measu remen t IgM, quant mg/dL 35.0 242.0 91.00 Test performed at [facility] on a Binding Site Optilite Analyzer that uses a turbidime tric method for analysis. Patient testing should not be performed using multiple methodolo gies due to analytica l variation seen between test methodolo gies. FINAL Marlene Guzmán * [facility] , [address] [facility] [id number] 0 04/03 [facility] other lab See attache malave Medications Date [...] 04/10/2025 Pain Scale 7.00 Notes Section * QUALITY CONSULTANT Follow-Up GYNECOLOGIC ONCOLOGY FOLLOW-UP VISIT Patient Name: JOSE ANGEL HENRY : 1960 Date of Visit: 10/11/2023 Referring Provider: Malissa Hernandez MD (FISHER MUSSEL) Attending: Marlene Guzmán (Hematology/Oncology) Chief Complaint (Completion Supervisor Oncology): 6 week post op?? History of Present Illness (Completion Supervisor Oncology): 63 y.o.?? 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 Anxious, , female with somewhat [...] record:05/23/2019 Last record:05/23/2019; ) Assessment & Plan (Completion Supervisor Oncology): 63?? y.o. 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 Pathology benign. Reviewedpathology, operative findings, expected recovery.?? She is recovering well, no further restrictions.?? She can follow up with PCP/client technical professional as needed.? Pain Care Management: Pain Scale: [...] Electronically signed by Judy RAJPUT 10/11/2023 15:27 SAP INTEGRATION ARCHITECT
--- OUTSIDE RECORDS SUMMARY | 2025-07-06 23:21 | XMS_ITS ---
Author Name Interface, [id number] lity Address [address] [facility] [address] [place] [address] [facility] Address [address] [facility] [address] [place] [address] Support Name Relationship Address Phone Greg Ch [...] FINAL [facility] [place], [address] [place] [address] 210 [facility] [phone] Phone: () - 11/22 Appea ying (ua) Clear FINAL [facility] [place], [address] [place] [address] 210 [facility] [phone] Phone: () - 11/22 Gluco se (ua), qual 500.0% Abnor mal FINAL [facility] [place], [address] [facility] 210 [facility] [phone] 0 Phone: () - 11/22 Bilir ubin (ua) Negativ e FINAL [facility] [place], [address] [place] [address] 210 [facility] [phone] Phone: () - 11/22 Urina lysis , aceto ne or keton e chapo s measu remen t Negativ e FINAL [facility] [place], [address] [facility] 210 [place] [phone] 0 Phone: () - 11/22 Speci fic gravi ty (ua) 1.005 1.02 1.025% Abnor mal FINAL [facility] [place], [address] [facility] 210 [place] [id number] 0 Phone: () - 11/22 Blood (ua) Negativ e FINAL [facility] [place], [address] [place] [address] 210 [place] [phone] 0 Phone: () - 11/22 pH (ua) 5.0 8.0 6.0% FINAL [facility] [place], [address] [place] [address] 210 [facility] [phone] Phone: () - 11/22 Prote in (ua) Negativ e FINAL [facility] [place], [address] [place] [address] 210 [place] [id number] 0 Phone: () - 11/22 Urobi linog en (ua) 0.2 1.0 0.2% FINAL [facility] [place], [address] [place] [address] 210 [place] [phone] 0 Phone: () - 11/22 Nitri te (ua) Negativ e FINAL [facility] [place], [address] [place] [address] 210 [place] [phone] 0 Phone: () - 11/22 Leuko cyte jerson ase (ua), qual Negativ e FINAL [facility]sa [facility] [place], [address] [place] [address] 210 [place] [id number] 0 Phone: () - 11/22 UA comme nt 1 Dipstic k negativ e- Culture ordered per provide r FINAL [facility]sa [facility] [place], [address] [place] [address] 210 [place] [phone] 0 Phone: () - 11/22 Urine cultu re panel CULTU RE, URINE , ROUTI NE SEE NOTE Abnor mal 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 mirabilis : Cefazolin issuscept ible if DCIKSON <32 mcg/mL and predictss usceptibl e to the oral agents cefaclor, cefdinir, cefpodoxi me, cefprozil , cefuroxim e, cephalexi nand loracarbe f. FINAL Hafsa Bud [facility], [facility] [address] [facility] [id number] 4 12/18 [facility] other lab See personnel assistant d 04/18 Total prote in g/dL 6.3 8.2 6.9 FINAL Marlene Guzmán * [facility], [address] [facility] [address] [place] [address] [id number] 04/18 Album in, SPE g/dL 3.31 5.31 3.97 FINAL Marlene Guzmán * [facility], [facility] [address] [place] [address] [id number] 0 04/18 Alpha -1 globu tony g/dL 0.19 0.42 0.26 FINAL Marlene Guzmán * [facility], [facility] [address] [place] [address] [id number] 04/18 Alpha -2 globu tony g/dL 0.44 1.03 0.63 FINAL Marlene Guzmán * [facility] [address] [place] [address] [id number] 04/18 Beta globu tony g/dL 0.52 1.05 0.95 FINAL Marlene Guzmán * [facility], [address] [facility] [address] [place] [address] [id number] 04/18 Gamma globu tony g/dL 0.59 1.46 1.10 FINAL Marlene Guzmán * [facility], [address] [facility] [address] [place] [address] [id number] 0 04/18 Elect Gemma layton in Lab resul t note Previou sly identif ied parapro teins detecte d in gamma region. Were 0.3 and 0.4 gm/dL, now 0.3 and 0.3 gm/dL. Interpr eted and signed by Adrienne Swanson MD on 024 FINAL Marlene Guzmán * [facility], [facility] [address] [place] [address] [id number] 04/18 M-spi ke, SPE, g/dL g/dL 0.0 0.0 0.3 High FINAL Marleneanabel Guzmán * [facility], [address] [facility] [id number] 0 04/18 M-spi ke 2, SPE g/dL 0.0 0.0 0.3 High FINAL Marlene Guzmán * [facility], [address] [facility] [address] [facility] [id number] 0 04/18 Immun oglob ulin measu remen t IgG, quant mg/dL 610.0 1616.0 946.67 Test performed at [facility] on a Binding Site Optilite Analyzer that uses a turbidime tric method for analysis. Patient testing should not be performed using multiple methodolo gies due to analytica l variation seen between test methodolo gies. FINAL Marlene Guzmán * [facility], [address] [id number] 0 04/18 Immun oglob ulin measu remen t IgA, quant mg/dL 61.0 348.0 493.08 High Test performed at [facility] on a Binding Site Optilite Analyzer that uses a turbidime tric method for analysis. Patient testing should not be performed using multiple methodolo gies due to analytica l variation seen between test methodolo gies. FINAL Marlene Guzmán * [facility], [address] [id number] 0 04/18 Immun oglob ulin measu remen t IgM, quant mg/dL 35.0 242.0 75.62 Test performed at [facility] on a Binding Site Optilite Analyzer that uses a turbidime tric method for analysis. Patient testing should not be performed using multiple methodolo gies due to analytica l variation seen between test methodolo gies. FINAL Marlene Guzmán * [facility], [address] [id number] 0 04/18 Free kappa / lambd a with K/L ratio , serum [place] light chain , free, serum , mg/dL mg/dL 0.33 1.94 3.62 High Test performed at [facility] on a Binding Site Optilite Analyzer that uses a turbidime tric method for analysis. Patient testing should not be performed using multiple methodolo gies due to analytica l variation seen between test methodolo gies. FINAL Marlene Stroud [facility], [address] [id number] 0 04/18 Free kappa / lambd a [...] Marlene [facility], [address] [facility] [address] [id number] 0 04/18 Free kappa / lambd a with K/L ratio , serum K/L light chain ratio , free, serum 0.26 1.65 1.16% FINAL Marlene [facility], [address] [facility] [address] [id number] 0 04/18 CBC w/ auto diff WBC K/uL 3.0 8.9 7.0 FINAL Marlene [facility] [place], [address] [facility] [address] [facility] [id number] 0 Phone: () - 04/18 CBC w/ auto diff HGB g/dL 11.3 15.2 14.0 FINAL Marlene [facility] - [place], [address] [place] [id number] 0 Phone: () - 04/18 CBC w/ auto diff PLT K/uL 113.0 364.0 164 FINAL Marlene Rubi a [facility] - [place], [address] [place] [id number] 0 Phone: () - 04/18 CBC w/ auto diff Tammy # (ANC) K/uL 1.6 6.6 4.5 FINAL Marlene [facility] - [place], [address] [place] [id number] 0 Phone: () - 04/18 CBC w/ auto diff Tammy % % 43.0 74.0 64.0 FINAL Marlene Ramirez [facility] [place], [address] [place] [id number] 0 Phone: () - 04/18 CBC w/ auto diff IG % % 0.0 0.5 0.3 FINAL Marlene Ramirez [facility] [place], [address] [place] [id number] 0 Phone: () - 04/18 CBC w/ auto diff IG # K/uL 0.0 0.03 0.02 FINAL Marlene Ramirez [facility] [place], [address] [place] [id number] 0 Phone: () - 04/18 CBC w/ auto diff LY % % 14.0 41.0 28.2 FINAL Marlene Guzmán [facility] [place], [address] [place] [id number] 0 Phone: () - 04/18 CBC w/ auto diff MO % % 6.0 15.0 6.0 FINAL Marlene Guzmán [facility] [place], [address] [place] [id number] 0 Phone: () - 04/18 CBC w/ auto diff EO % % 0.0 7.0 1.1 FINAL Marlene Ramirez [facility] [place], [address] [place] [id number] 0 Phone: () - 04/18 CBC w/ auto diff BA % % 0.0 2.0 0.4 FINAL Marlene [facility] [place], [address] [place] [id number] 0 Phone: () - 04/18 CBC w/ auto diff LY # K/uL 0.4 3.6 2.0 FINAL Marlene Rubi [facility] - [place], [address] [place] [id number] 0 Phone: () - 04/18 CBC w/ auto diff MO # K/uL 0.2 1.3 0.4 FINAL Marlene [facility] - [place], [address] [place] [id number] 0 Phone: () - 04/18 CBC w/ auto diff EO # K/uL 0.0 0.6 0.1 FINAL Marlene Rubi [facility] - [place], [address] [place] [id number] 0 Phone: () - 04/18 CBC w/ auto diff BA # K/uL 0.0 0.2 0.0 FINAL Marlene Rubi a [facility] - [place], [address] [place] [id number] 0 Phone: () - 04/18 CBC w/ auto diff NRBC % #/100W BC 0.0 0.2 0.0 FINAL Marlene [facility]i [facility] - [place], [address] [place] [id number] 0 Phone: () - 04/18 CBC w/ auto diff RBC M/uL 3.9 5.1 4.84 FINAL Marlene [facility] - [place], [address] [place] [id number] 0 Phone: () - 04/18 CBC w/ auto diff HCT % 35.0 48.0 40.4 FINAL Marlene Guzmán [facility] [place], [address] [place] [id number] 0 Phone: () - 04/18 CBC w/ auto diff MCV fL 80.0 104.0 83.5 FINAL Marlene Guzmán [facility] [place], [address] [place] [id number] 0 Phone: () - 04/18 CBC w/ auto diff MCH pg 26.0 35.0 28.9 FINAL Marlene Guzmán [facility] [place], [address] [place] [id number] 0 Phone: () - 04/18 CBC w/ auto diff MCHC g/dL 30.0 35.0 34.7 FINAL Marlene Guzmán [facility] [place], [address] [place] [id number] 0 Phone: () - 04/18 CBC w/ auto diff MPV fL 9.5 13.4 9.7 FINAL Marlene Guzmán [facility] [place], [address] [place] [id number] 0 Phone: () - 04/18 CBC w/ auto diff RDW % 11.4 16.1 13.80 FINAL Marlene Guzmán [facility] [place], [address] [place] [id number] 0 Phone: () - 04/18 CMP Album in g/dL 3.5 5.0 4.0 FINAL Marlene Guzmán * [facility] [place], [address] [place] [id number] 0 04/18 CMP Alkal ine phosp hatas e U/L 36.0 125.0 105 FINAL Marlene Guzmán * [facility] [place], [address] [place] [id number] 0 04/18 CMP ALT/S GPT U/L 0.0 34.0 35 High FINAL Marlene Guzmán * [facility], [address] [facility] [address] [id number] 0 04/18 CMP AST/S GOT U/L 14.0 36.0 44 High FINAL Marlene Guzmán * [facility], [address] [facility] [address] [id number] 0 04/18 CMP BUN mg/dL 7.0 17.0 21.0 High FINAL Marlene Guzmán * [facility], [address] [facility] [address] [id number] 0 04/18 CMP Calci um mg/dL 8.4 10.2 8.8 FINAL Marlene Guzmán * [facility], [address] [facility] [address] [id number] 0 04/18 CMP Chlor nilson mmol/L 96.0 107.0 106 FINAL Marlene Guzmán * [facility], [address] [facility] [address] [id number] 0 04/18 CMP CO2 mmol/L 22.0 30.0 [...] hour stability window. FINAL Marlene Guzmán * [facility], [address] [facility] [address] [id number] 0 04/18 CMP Creat inine mg/dL 0.66 1.25 0.70 FINAL Marlene Guzmán * [facility], [address] [facility] [id number] 0 04/18 CMP GFR estim ate ml/min /1.73m ^2 97.7 GFR is calculate d using the CKD-EPI equation. FINAL Marlene Guzmán * [facility], [address] [facility] [id number] 0 04/18 CMP Gluco se mg/dL 74.0 100.0 267 High FINAL Marlene Guzmán * [facility], [address] [facility] [id number] 0 04/18 CMP Potas sium mmol/L 3.5 5.1 4.0 FINAL Marlene Guzmán * [facility], [address] [facility] [id number] 0 04/18 CMP Sodiu m mmol/L 137.0 145.0 136 Low FINAL Marlene Guzmán * [facility], [address] [facility] [id number] 0 04/18 CMP Bilir ubin, total mg/dL 0.2 1.3 1.0 FINAL Marlene Guzmán * [facility], [address] [facility] [id number] 0 04/18 CMP Total prote in g/dL 6.3 8.2 7.3 FINAL Marlene Guzmán * [facility], [address] [facility] [id number] 0 04/18 [facility] other lab See personnel assistant d 12/20 [facility] other lab See personnel assistant d 12/20 Misc other lab See personnel assistant d 03/09 Free kappa / lambd a with K/L ratio , serum [place] light chain , free, serum , mg/dL mg/dL 0.33 1.94 4.35 High Test performed at [facility] on a Binding Site Optilite Analyzer that uses a turbidime tric method for analysis. Patient testing should not be performed using multiple methodolo gies due to analytica l variation seen between test methodolo gies. FINAL Marlene Guzmán * [facility] , [address] [facility] [address] [facility] [id number] 0 03/09 Free kappa / lambd a [...] methodolo gies. FINAL Marlene Guzmán * [facility] , [address] [facility] [address] [id number] 0 03/09 Free kappa / lambd a with K/L ratio , serum K/L light chain ratio , free, serum 0.26 1.65 1.14% FINAL Marlene Guzmán * [facility] , [address] [facility] [address] [id number] 0 03/09 CMP Album in g/dL 3.5 5.0 3.8 FINAL Marlene Guzmán * [facility] , [address] [facility] [address] [id number] 0 03/09 CMP Alkal ine phosp hatas e U/L 36.0 125.0 106 FINAL Marlene Guzmán * [facility] , [address] [facility] [address] [id number] 0 03/09 CMP ALT/S GPT U/L 0.0 34.0 37 High FINAL Marlene Guzmán * [facility] , [address] [facility] [address] [id number] 0 03/09 CMP AST/S GOT U/L 14.0 36.0 36 FINAL Marlene Ramirez * [facility] , [address] [facility] [address] [facility] [id number] 0 03/09 CMP BUN mg/dL 7.0 17.0 18.0 High FINAL Marlene Guzmán * [facility] , [address] [facility] [address] [facility] [id number] 0 03/09 CMP Calci um mg/dL 8.4 10.2 8.9 FINAL Marlene Guzmán * [facility] , [address] [facility] [address] [facility] [id number] 0 03/09 CMP Chlor nilson mmol/L 96.0 107.0 99 FINAL Marlene Guzmán * [facility] , [address] [facility] [address] [facility] [id number] 0 03/09 CMP CO2 mmol/L 22.0 30.0 [...] hour stability window. FINAL Marlene Guzmán * [facility] , [address] [facility] [address] [facility] [id number] 0 03/09 CMP Creat inine mg/dL 0.66 1.25 0.70 FINAL Marlene Guzmán * [facility] , [address] [facility] [address] [facility] [id number] 0 03/09 CMP GFR estim ate ml/min /1.73m ^2 97.1 GFR is calculate d using the CKD-EPI equation. FINAL Marlene Guzmán * [facility] , [address] [facility] [address] [id number] 0 03/09 CMP Gluco se mg/dL 74.0 100.0 363 Criti sami High FINAL Marlene Guzmán * [facility] , [address] [facility] [address] [facility] [id number] 0 03/09 CMP Potas sium mmol/L 3.5 5.1 3.9 FINAL Marlene Guzmán * [facility] , [address] [facility] [address] [facility] [id number] 0 03/09 CMP Sodiu m mmol/L 137.0 145.0 134 Low FINAL Marlene Guzmán * [facility] , [address] [facility] [address] [facility] [id number] 0 03/09 CMP Bilir ubin, total mg/dL 0.2 1.3 1.1 FINAL Marlene Guzmán * [facility] , [address] [facility] [address] [facility] [id number] 0 03/09 CMP Total prote in g/dL 6.3 8.2 7.3 FINAL Marlene Guzmán * [facility] , [address] [facility] [address] [facility] [id number] 0 03/09 CBC w/ auto diff WBC K/uL 3.0 8.9 7.1 FINAL Marlene Guzmán [place] [facility] [place] [facility] , [address] [place] [id number] 0 03/09 CBC w/ auto diff HGB g/dL 11.3 15.2 14.4 FINAL Marlene Guzmán [place] [facility] [place] [facility] , [address] [place] [id number] 0 03/09 CBC w/ auto diff PLT K/uL 113.0 364.0 179 FINAL Marlene Guzmán [place] [facility] [place] [facility] , [address] [place] [id number] 0 03/09 CBC w/ auto diff Tammy # (ANC) K/uL 1.6 6.6 4.7 FINAL Marlene Guzmán [place] [facility] [place] [facility] , [address] [place] [id number] 0 03/09 CBC w/ auto diff Tammy % % 43.0 74.0 65.7 FINAL Marlene Guzmán [place] [facility] [place] [facility] , [address] [place] [id number] 0 03/09 CBC w/ auto diff IG % % 0.0 0.5 0.6 High FINAL Marlene Guzmán [place] [facility] [place] [facility] , [address] [place] [id number] 0 03/09 CBC w/ auto diff IG # K/uL 0.0 0.03 0.04 High FINAL Marlene Guzmán [place] [facility] [place] [facility] , [address] [place] [id number] 0 03/09 CBC w/ auto diff LY % % 14.0 41.0 25.8 FINAL Marlene Guzmán [place] [facility] [place] [facility] , [address] [place] [id number] 0 03/09 CBC w/ auto diff MO % % 6.0 15.0 6.2 FINAL Marlene Guzmán [place] [facility] , [address] [place] [id number] 0 03/09 CBC w/ auto diff EO % % 0.0 7.0 1.1 FINAL Marlene Guzmán [place] [facility] , [address] [place] [id number] 0 03/09 CBC w/ auto diff BA % % 0.0 2.0 0.6 FINAL Marlene Guzmán [place] [facility] , [address] [place] [id number] 0 03/09 CBC w/ auto diff LY # K/uL 0.4 3.6 1.8 FINAL Marlene Guzmán [place] [facility] [place] [facility] , [address] [place] [id number] 0 03/09 CBC w/ auto diff MO # K/uL 0.2 1.3 0.4 FINAL Marlene Guzmán [place] [facility] [place] [facility] , [address] [place] [id number] 0 03/09 CBC w/ auto diff EO # K/uL 0.0 0.6 0.1 FINAL Marlene Guzmán [place] [facility] [place] [facility] , [address] [place] [id number] 0 03/09 CBC w/ auto diff BA # K/uL 0.0 0.2 0.0 FINAL Marlene Guzmán [place] [facility] [place] [facility] , [address] [place] [id number] 0 03/09 CBC w/ auto diff NRBC % #/100W BC 0.0 0.2 0.0 FINAL Marlene Guzmán [place] [facility] [place] [facility] , [address] [place] [id number] 0 03/09 CBC w/ auto diff RBC M/uL 3.9 5.1 5.08 FINAL Marlene Guzmán [place] [facility] [place] [facility] , [address] [place] [id number] 0 03/09 CBC w/ auto diff HCT % 35.0 48.0 42.9 FINAL Marlene Guzmán [facility] , [address] [place] [facility] [id number] 0 03/09 CBC w/ auto diff MCV fL 80.0 104.0 84.4 FINAL Marlene Guzmán [facility] , [address] [facility] [address] [place] [facility] [id number] 0 03/09 CBC w/ auto diff MCH pg 26.0 35.0 28.3 FINAL Marlene Guzmán [facility] , [address] [facility] [id number] 0 03/09 CBC w/ auto diff MCHC g/dL 30.0 35.0 33.6 FINAL Marlene Guzmán [facility] , [address] [facility] [address] [facility] [id number] 0 03/09 CBC w/ auto diff MPV fL 9.5 13.4 9.6 FINAL Marlene Guzmán [facility] , [address] [facility] [address] [facility] [id number] 0 03/09 CBC w/ auto diff RDW % 11.4 16.1 14.20 FINAL Marlene Guzmán [facility] , [address] [facility] [address] [facility] [id number] 0 03/09 Immun oglob ulin measu remen t IgG, quant mg/dL 610.0 1616.0 1080.49 Test performed at [facility] on a Binding Site Optilite Analyzer that uses a turbidime tric method for analysis. Patient testing should not be performed using multiple methodreal rocha due to analytica l variation seen between test methodreal rocha. FINAL Marlene Guzmán * [facility] , [address] [facility] [id number] 0 03/09 Immun oglob ulin measu remen t IgA, quant mg/dL 61.0 348.0 577.26 High Test performed at [facility] on a Binding Site Optilite Analyzer that uses a turbidime tric method for analysis. Patient testing should not be performed using multiple methodolo gies due to analytica l variation seen between test methodolo gies. FINAL Marlene Guzmán * [facility] , [facility] [address] [id number] 0 03/09 Immun oglob ulin measu remen t IgM, quant mg/dL 35.0 242.0 91.00 Test performed at [facility] on a Binding Site Optilite Analyzer that uses a turbidime tric method for analysis. Patient testing should not be performed using multiple methodolo gies due to analytica l variation seen between test methodolo gies. FINAL Marlene Guzmán * [facility] , [facility] [address] [id number] 0 03/09 Total prote in g/dL 6.3 8.2 7.1 FINAL Marlene Guzmán * [facility] , [facility] [address] [place] [address] [id number] 03/09 Album in, SPE g/dL 3.31 5.31 4.70 FINAL Marlene Guzmán * [facility] , [facility] [address] [id number] 0 03/09 Alpha -1 globu tony g/dL 0.19 0.42 0.23 FINAL Marlene Guzmán * [facility] , [facility] [address] [id number] 0 03/09 Alpha -2 globu tony g/dL 0.44 1.03 0.52 FINAL Marlene Guzmán * [facility] , [facility] [address] [id number] 0 03/09 Beta globu tony g/dL 0.52 1.05 0.80 FINAL Marlene Guzmán * [facility] , [address] [facility] [address] [id number] 0 03/09 Gamma globu tony g/dL 0.59 1.46 0.85 FINAL Marlene Guzmán * [facility] , [address] [facility] [address] [id number] 0 03/09 Elect Gemma layton in Lab resul t note Previou sly identif ied parapro teins detecte d in gamma region. Is now 0.3 and 0.4 gm/dL. Interpr eted and signed by Luis Guillermo MD on 025 FINAL Marlene Guzmán * [facility] , [facility] [address] [id number] 0 03/09 M-spi ke, SPE, g/dL g/dL 0.0 0.0 0.3 High FINAL Marlene Guzmán * [facility] , [address] [facility] [address] [id number] 0 03/09 M-spi ke 2, SPE g/dL 0.0 0.0 0.4 High FINAL Marlene Guzmán * [facility] , [address] [facility] [address] [id number] 0 04/03 Misc other lab See personnel assistant d Medications Date Name Route Dose Frequency [...] 70 04/10/2025 BMI 53.23 Notes Section * 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 History of Present Illness ([facility]): 63 y.o.?? 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 Anxious, , female tearful??throughout visit. [...] record:05/23/2019 Last record:05/23/2019; ) Assessment & Plan ([facility]): 63?? y.o. with abnormal uterine bleeding/PMB [...]
--- OUTSIDE RECORDS SUMMARY | 2025-07-06 23:21 | XMS_ITS ---
Author Name Interface, [id number] lity Address [address] [facility] [address] [place] [address] [facility] Oncology Address [address] [facility] [address] [place] [address] Support Name Relationship Address Phone Greg Henry [...] Ordered By Specimen Source Lab Address 11/05 [facility] [place] See die attacher d 11/08 [facility] other lab See die attacher d 11/22 Color (ua) Yellow FINAL Hafsa Bud [place] [facility] [place], [address] [facility] 210 [place] [phone] 0 Phone: () - 11/22 Appea ying (ua) Clear FINAL Hafsaanabel Rubi [facility] - [place], [address] [place] [address] 210 [place] [phone] 0 Phone: () - 11/22 Gluco se (ua), qual 500.0% Abnor mal FINAL Hafsaanabel Rubi [facility] - [place], [address] [place] [address] 210 [place] [phone] 0 Phone: () - 11/22 Bilir ubin (ua) Negativ e FINAL Hafsaanabel Rubi [facility] - [place], [address] [place] [address] 210 [place] [phone] 0 Phone: () - 11/22 Urina lysis , aceto ne or keton e chapo s measu remen t Negativ e FINAL Hafsaanabel Rubi [facility] - [place], [address] [place] [address] [address] [place] [phone] 0 Phone: () - 11/22 Speci fic gravi ty (ua) 1.005 1.02 1.025% Abnor mal FINAL Hafsaanabel Rubi [facility] - [place], [address] [place] [address] 210 [place] [phone] 0 Phone: () - 11/22 Blood (ua) Negativ e FINAL Hafsaanabel uRbi a [facility] - [place], [address] [place] [address] 210 [place] [phone] 0 Phone: () - 11/22 pH (ua) 5.0 8.0 6.0% FINAL Hafsaanabel [facility] [facility] - [place], [address] [place] [address] [address] [place] [phone] 0 Phone: () - 11/22 Prote in (ua) Negativ e FINAL Hafsaanabel Rubi a [facility] - [place], [address] [place] [address] 210 [place] [phone] 0 Phone: () - 11/22 Urobi linog en (ua) 0.2 1.0 0.2% FINAL Hafsaanabel [facility] - [place], [address] [place] [address] 210 [facility] [phone] 0 Phone: () - 11/22 Nitri te (ua) Negativ e FINAL Hafsa Rubi a [facility], [address] [place] [address] 210 [facility] [phone] 0 Phone: () - 11/22 Leuko cyte jerson ase (ua), qual Negativ e FINAL Hafsa Rubi [facility], [address] [place] [address] [phone] 0 Phone: () - 11/22 UA comme nt 1 Dipstic k negativ e- Culture ordered per provide r FINAL Hafsa Rubi [facility], [address] [place] [address] [phone] 0 Phone: () - 11/22 Urine cultu re panel CULTU RE, URINE , ROUTI NE SEE NOTE Abnor mal CULTURE, URINE, 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 Number: [id number] est Status: FinalSpec imen Source: UrineSpec imen [...] Hafsaanabel Farrell [facility], [facility] [address] [facility] [id number] 4 12/18 [facility] other lab See d 04/18 Total prote in g/dL 6.3 8.2 6.9 FINAL Marlene Guzmán * [facility] [address] [place] [address] [id number] 0 04/18 Album in, SPE g/dL 3.31 5.31 3.97 FINAL Marlene Guzmán * [facility] [address] [place] [address] [id number] 0 04/18 Alpha -1 globu tony g/dL 0.19 0.42 0.26 FINAL Marlene Guzmán * [facility], [address] [id number] 0 04/18 Alpha -2 globu tony g/dL 0.44 1.03 0.63 FINAL Marlene Guzmán * [facility], [address] [id number] 0 04/18 Beta globu tony g/dL 0.52 1.05 0.95 FINAL Marlene Guzmán * [facility], [address] [id number] 0 04/18 Gamma globu tony g/dL 0.59 1.46 1.10 FINAL Marlene Guzmán * [facility], [facility] [address] [place] [address] [id number] 0 04/18 Elect abiola jackson Gemma in Lab resul t note Previou sly identif ied parapro teins detecte d in gamma region. Were 0.3 and 0.4 gm/dL, now 0.3 and 0.3 gm/dL. Interpr eted and signed by Adrienne Swanson MD on 024 FINAL Marlene Guzmán * [facility] [address] [place] [address] [id number] 0 04/18 M-spi ke, SPE, g/dL g/dL 0.0 0.0 0.3 High FINAL Marlene Guzmán * [facility], [address] [facility] [address] [id number] 0 04/18 M-spi ke 2, SPE g/dL 0.0 0.0 0.3 High FINAL Marlene Guzmán * [facility] [address] [place] [address] [id number] 0 04/18 Immun oglob ulin measu remen t IgG, quant mg/dL 610.0 1616.0 946.67 Test performed at [facility] on a Binding Site Optilite Analyzer that uses a turbidime tric method for analysis. Patient testing should not be performed using multiple methodreal gikim due to analytica l variation seen between test methodreal rocha. FINAL Marlene Guzmán * [facility] [address] [place] [address] [id number] 0 04/18 Immun oglob ulin measu remen t IgA, quant mg/dL 61.0 348.0 493.08 High Test performed at [facility] on a Binding Site Optilite Analyzer that uses a turbidime tric method for analysis. Patient testing should not be performed using multiple methodolo gies due to analytica l variation seen between test methodolo gies. FINAL Marlene Stroud [facility] [address] [place] [address] [id number] 0 04/18 Immun oglob ulin measu remen t IgM, quant mg/dL 35.0 242.0 75.62 Test performed at [facility] on a Binding Site Optilite Analyzer that uses a turbidime tric method for analysis. Patient testing should not be performed using multiple methodolo gies due to analytica l variation seen between test methodolo gies. FINAL Marlene Stroud [facility] a [address] [place] [address] [id number] 0 04/18 Free kappa / lambd a with K/L ratio , serum [place] light chain , free, serum , mg/dL mg/dL 0.33 1.94 3.62 High Test performed at [facility] on a Binding Site Optilite Analyzer that uses a turbidime tric method for analysis. Patient testing should not be performed using multiple methodolo gies due to analytica l variation seen between test methodolo gies. FINAL Marlene Guzmán * Jann a [address] [place] [address] [id number] 0 04/18 Free kappa / lambd a [...] gies. FINAL Marlene Stroud [facility] [address] [place] [address] [id number] 0 04/18 Free kappa / lambd a with K/L ratio , serum K/L light chain ratio , free, serum 0.26 1.65 1.16% FINAL Marlene Guzmán * [place] [facility] [place], [address] [facility] [place] [id number] 0 04/18 CBC w/ auto diff WBC K/uL 3.0 8.9 7.0 FINAL Marlene [facility] - [place], [address] [place] [id number] 0 Phone: () - 04/18 CBC w/ auto diff HGB g/dL 11.3 15.2 14.0 FINAL Marlene Rubi a [facility] - [place], [address] [place] [id number] 0 Phone: () - 04/18 CBC w/ auto diff PLT K/uL 113.0 364.0 164 FINAL Marlene Rubi a [facility] - [place], [address] [place] [id number] 0 Phone: () - 04/18 CBC w/ auto diff Tammy # (ANC) K/uL 1.6 6.6 4.5 FINAL Marlene pagan [facility] - [place], [address] [place] [id number] 0 Phone: () - 04/18 CBC w/ auto diff Tammy % % 43.0 74.0 64.0 FINAL Marlene pagan [facility] - [place], [address] [place] [id number] 0 Phone: () - 04/18 CBC w/ auto diff IG % % 0.0 0.5 0.3 FINAL Marlene Rubi a [facility] - [place], [address] [place] [id number] 0 Phone: () - 04/18 CBC w/ auto diff IG # K/uL 0.0 0.03 0.02 FINAL Marlene Rubi a [facility] - [place], [address] [place] [id number] 0 Phone: () - 04/18 CBC w/ auto diff LY % % 14.0 41.0 28.2 FINAL Marlene pagan [facility] - [place], [address] [place] [id number] 0 Phone: () - 04/18 CBC w/ auto diff MO % % 6.0 15.0 6.0 FINAL Marlene pagan [facility] - [place], [address] [place] [id number] 0 Phone: () - 04/18 CBC w/ auto diff EO % % 0.0 7.0 1.1 FINAL Marlene pagan [facility] - [place], [address] [place] [id number] 0 Phone: () - 04/18 CBC w/ auto diff BA % % 0.0 2.0 0.4 FINAL Marlene pagan [facility] - [place], [address] [place] [id number] 0 Phone: () - 04/18 CBC w/ auto diff LY # K/uL 0.4 3.6 2.0 FINAL Marlene pagan [facility] - [place], [address] [place] [id number] 0 Phone: () - 04/18 CBC w/ auto diff MO # K/uL 0.2 1.3 0.4 FINAL Marlene pagan [facility] - [place], [address] [place] [id number] 0 Phone: () - 04/18 CBC w/ auto diff EO # K/uL 0.0 0.6 0.1 FINAL Marlene pagan [facility] - [place], [address] [place] [id number] 0 Phone: () - 04/18 CBC w/ auto diff BA # K/uL 0.0 0.2 0.0 FINAL Marlene pagan [facility] - [place], [address] [place] [id number] 0 Phone: () - 04/18 CBC w/ auto diff NRBC % #/100W BC 0.0 0.2 0.0 FINAL Marlene [facility] - [place], [address] [place] [id number] 0 Phone: () - 04/18 CBC w/ auto diff RBC M/uL 3.9 5.1 4.84 FINAL Marlene [facility] - [place], [address] [place] [id number] 0 Phone: () - 04/18 CBC w/ auto diff HCT % 35.0 48.0 40.4 FINAL Marlene Ramirez [facility] - [place], [address] [place] [id number] 0 Phone: () - 04/18 CBC w/ auto diff MCV fL 80.0 104.0 83.5 FINAL Marlene Ramirez [facility] - [place], [address] [place] [id number] 0 Phone: () - 04/18 CBC w/ auto diff MCH pg 26.0 35.0 28.9 FINAL Marlene Guzmán [facility] - [place], [address] [place] [id number] 0 Phone: () - 04/18 CBC w/ auto diff MCHC g/dL 30.0 35.0 34.7 FINAL Marlene Guzmán [facility] - [place], [address] [place] [id number] 0 Phone: () - 04/18 CBC w/ auto diff MPV fL 9.5 13.4 9.7 FINAL Marlene Guzmán [facility] - [place], [address] [place] [id number] 0 Phone: () - 04/18 CBC w/ auto diff RDW % 11.4 16.1 13.80 FINAL Marlene Guzmán [place] [facility] [place], [address] [facility] [place] [id number] 0 Phone: ( 04/18 CMP Album in g/dL 3.5 5.0 4.0 FINAL Marlene Guzmán * [place] [facility] [place], [address] [facility] [id number] 0 04/18 CMP Alkal ine phosp hatas e U/L 36.0 125.0 105 FINAL Marlene Guzmán * [facility] [facility], [address] [facility] [id number] 0 04/18 CMP ALT/S GPT U/L 0.0 34.0 35 High FINAL Marlene Guzmán * [place] [facility], [address] [facility] [id number] 0 04/18 CMP AST/S GOT U/L 14.0 36.0 44 High FINAL Marlene Guzmán * [place] [facility], [address] [facility] [id number] 0 04/18 CMP BUN mg/dL 7.0 17.0 21.0 High FINAL Marlene Guzmán * [place] [facility], [address] [facility] [id number] 0 04/18 CMP Calci um mg/dL 8.4 10.2 8.8 FINAL Marlene Guzmán * [place] [facility], [address] [facility] [id number] 0 04/18 CMP Chlor nilson mmol/L 96.0 107.0 106 FINAL Marlene Guzmán * [place] [facility], [address] [facility] [id number] 0 04/18 CMP CO2 mmol/L 22.0 30.0 [...] 96 hour stability window. FINAL Marlene Stroud [facility] [address] [id number] 0 04/18 CMP Creat inine mg/dL 0.66 1.25 0.70 FINAL Marlene Guzmán * [facility], [address] [place] [address] [id number] 0 04/18 CMP GFR estim ate ml/min /1.73m ^2 97.7 GFR is calculate d using the CKD-EPI equation. FINAL Marlene Stroud [facility] [address] [id number] 0 04/18 CMP Gluco se mg/dL 74.0 100.0 267 High FINAL Marlene Stroud [facility] [address] [place] [address] [id number] 0 04/18 CMP Potas sium mmol/L 3.5 5.1 4.0 FINAL Marlene Stroud [facility] [address] [id number] 0 04/18 CMP Sodiu m mmol/L 137.0 145.0 136 Low FINAL Marlene Stroud [facility] [address] [id number] 0 04/18 CMP Bilir ubin, total mg/dL 0.2 1.3 1.0 FINAL Marlene Stroud [facility], [address] [facility] [address] [id number] 0 04/18 CMP Total prote in g/dL 6.3 8.2 7.3 FINAL Marlene Guzmán * [place] [facility] [place], [address] [facility] [address] [id number] 0 04/18 [facility] [place] lab See die attacher d 12/20 [facility] other lab See die attacher d 12/20 [facility] other lab See die attacher d 03/09 Free kappa / lambd a with K/L ratio , serum [place] light chain , free, serum , mg/dL mg/dL 0.33 1.94 4.35 High Test performed at [facility] on a Binding Site Optilite Analyzer that uses a turbidime tric method for analysis. Patient testing should not be performed using multiple methodolo gies due to analytica l variation seen between test methodolo gies. FINAL Marlene Guzmán * [facility] , [address] [facility] [address] [id number] 0 03/09 Free kappa / lambd a [...] test methodolo gies. FINAL Marlene Guzmán * [facility] , [address] [facility] [address] [id number] 0 03/09 Free kappa / lambd a with K/L ratio , serum K/L light chain ratio , free, serum 0.26 1.65 1.14% FINAL Marlene Guzmán * [facility] , [address] [facility] [address] [id number] 0 03/09 CMP Album in g/dL 3.5 5.0 3.8 FINAL Marlene Guzmán * [facility] , [address] [facility] [id number] 0 03/09 CMP Alkal ine phosp hatas e U/L 36.0 125.0 106 FINAL Marleneanabel Guzmán * [facility] , [address] [facility] [id number] 0 03/09 CMP ALT/S GPT U/L 0.0 34.0 37 High FINAL Marleen Guzmán * [facility] , [address] [facility] [id number] 0 03/09 CMP AST/S GOT U/L 14.0 36.0 36 FINAL Marlene Guzmán * [facility] , [address] [facility] [id number] 03/09 CMP BUN mg/dL 7.0 17.0 18.0 High FINAL Marlene Guzmán * [facility] , [address] [facility] [id number] 0 03/09 CMP Calci um mg/dL 8.4 10.2 8.9 FINAL Marleneanabel Guzmán * [facility] , [address] [facility] [id number] 0 03/09 CMP Chlor nilson mmol/L 96.0 107.0 99 FINAL Marleneanabel Guzmán * [facility] , [address] [facility] [id number] 0 03/09 CMP CO2 mmol/L 22.0 30.0 [...] hour stability window. FINAL Marleneanabel Guzmán * [facility] , [address] [facility] [address] [facility] [id number] 0 03/09 CMP Creat inine mg/dL 0.66 1.25 0.70 FINAL Marleneanabel Guzmán * [facility] , [address] [facility] [address] [facility] [id number] 0 03/09 CMP GFR estim ate ml/min /1.73m ^2 97.1 GFR is calculate d using the CKD-EPI equation. FINAL Marleneanabel Guzmán * [facility] , [address] [facility] [address] [facility] [id number] 0 03/09 CMP Gluco se mg/dL 74.0 100.0 363 Criti sami High FINAL Marlene Guzmán * [facility] , [address] [facility] [address] [facility] [id number] 0 03/09 CMP Potas sium mmol/L 3.5 5.1 3.9 FINAL Marlene Ramirez * [facility] , [address] [facility] [address] [facility] [id number] 0 03/09 CMP Sodiu m mmol/L 137.0 145.0 134 Low FINAL Marleneanabel Guzmán * [facility] , [address] [facility] [address] [facility] [id number] 0 03/09 CMP Bilir ubin, total mg/dL 0.2 1.3 1.1 FINAL Marleneanabel Guzmán * [facility] , [address] [facility] [facility] [id number] 0 03/09 CMP Total prote in g/dL 6.3 8.2 7.3 FINAL Marlene Guzmán * [facility] , [address] [facility] [address] [facility] [id number] 0 03/09 CBC w/ auto diff WBC K/uL 3.0 8.9 7.1 FINAL Marlene Guzmán [place] [facility] [place] [facility] , [address] [place] [id number] 0 03/09 CBC w/ auto diff HGB g/dL 11.3 15.2 14.4 FINAL Marlene Guzmán [place] [facility] [place] [facility] , [address] [place] [id number] 0 03/09 CBC w/ auto diff PLT K/uL 113.0 364.0 179 FINAL Marlene Guzmán [place] [facility] [place] [facility] , [address] [place] [id number] 0 03/09 CBC w/ auto diff Tammy # (ANC) K/uL 1.6 6.6 4.7 FINAL Marlene Guzmán [facility] [place] [facility] , [address] [place] [id number] 0 03/09 CBC w/ auto diff Tammy % % 43.0 74.0 65.7 FINAL Marlene Guzmán [place] [facility] [place] [facility] , [address] [place] [id number] 0 03/09 CBC w/ auto diff IG % % 0.0 0.5 0.6 High FINAL Marlene Guzmán [place] [facility] [place] [facility] , [address] [place] [id number] 0 03/09 CBC w/ auto diff IG # K/uL 0.0 0.03 0.04 High FINAL Marlene Guzmán [place] [facility] [place] [facility] , [address] [place] [id number] 0 03/09 CBC w/ auto diff LY % % 14.0 41.0 25.8 FINAL Marlene Guzmán [place] [facility] [place] [facility] , [address] [place] [id number] 0 03/09 CBC w/ auto diff MO % % 6.0 15.0 6.2 FINAL Marlene Guzmán [place] [facility] [place] [facility] , [address] [place] [id number] 0 03/09 CBC w/ auto diff EO % % 0.0 7.0 1.1 FINAL Marlene Guzmán [place] [facility] [place] [facility] , [address] [place] [id number] 0 03/09 CBC w/ auto diff BA % % 0.0 2.0 0.6 FINAL Marlene Guzmán [place] [facility] [place] [facility] , [address] [place] [id number] 0 03/09 CBC w/ auto diff LY # K/uL 0.4 3.6 1.8 FINAL Marlene Guzmán [place] [facility] [place] [facility] , [address] [place] [id number] 0 03/09 CBC w/ auto diff MO # K/uL 0.2 1.3 0.4 FINAL Marlene Guzmán [place] [facility] [place] [facility] , [address] [place] [id number] 0 03/09 CBC w/ auto diff EO # K/uL 0.0 0.6 0.1 FINAL Marlene Guzmán [place] [facility] [place] [facility] , [address] [place] [id number] 0 03/09 CBC w/ auto diff BA # K/uL 0.0 0.2 0.0 FINAL Marlene Guzmán [place] [facility] [place] [facility] , [address] [place] [id number] 0 03/09 CBC w/ auto diff NRBC % #/100W BC 0.0 0.2 0.0 FINAL Marlene Guzmán [place] [facility] [place] [facility] , [address] [place] [id number] 0 03/09 CBC w/ auto diff RBC M/uL 3.9 5.1 5.08 FINAL Marlene Guzmán [place] [facility] , [address] [place] [id number] 0 03/09 CBC w/ auto diff HCT % 35.0 48.0 42.9 FINAL Marlene Guzmán [facility] [place] [facility] , [address] [place] [id number] 0 03/09 CBC w/ auto diff MCV fL 80.0 104.0 84.4 FINAL Marlene Guzmán [facility] [place] [facility] , [address] [place] [id number] 0 03/09 CBC w/ auto diff MCH pg 26.0 35.0 28.3 FINAL Marlene Guzmán [facility] [place] [facility] , [address] [place] [id number] 0 03/09 CBC w/ auto diff MCHC g/dL 30.0 35.0 33.6 FINAL Marlene Guzmán [facility] [place] [facility] , [address] [place] [id number] 0 03/09 CBC w/ auto diff MPV fL 9.5 13.4 9.6 FINAL Marlene Guzmán [place] [facility] , [address] [place] [id number] 0 03/09 CBC w/ auto diff RDW % 11.4 16.1 14.20 FINAL Marlene Guzmán [facility] , [address] [facility] [id number] 0 03/09 Total prote in g/dL 6.3 8.2 7.1 FINAL Marlene Guzmán * [facility] , [address] [facility] [address] [facility] [id number] 0 03/09 Album in, SPE g/dL 3.31 5.31 4.70 FINAL Marlene Guzmán * [facility] , [address] [facility] [address] [id number] 0 03/09 Alpha -1 globu tony g/dL 0.19 0.42 0.23 FINAL Marlene Guzmán * [facility] , [address] [facility] [address] [id number] 0 03/09 Alpha -2 globu tony g/dL 0.44 1.03 0.52 FINAL Marlene Guzmán * [facility] , [address] [facility] [address] [id number] 0 03/09 Beta globu tony g/dL 0.52 1.05 0.80 FINAL Marlene Guzmán * [facility] , [address] [facility] [address] [id number] 0 03/09 Gamma globu tony g/dL 0.59 1.46 0.85 FINAL Marlene Guzmán * [facility] , [address] [facility] [address] [id number] 0 03/09 Gemma Rodriguez in Lab resul t note Previou sly identif ied parapro teins detecte d in gamma region. Is now 0.3 and 0.4 gm/dL. Interpr eted and signed by Luis Guillermo MD on 025 FINAL Marlene Guzmán * [facility] , [address] [facility] [id number] 0 03/09 M-spi ke, SPE, g/dL g/dL 0.0 0.0 0.3 High FINAL Marlene Guzmán * [facility] , [address] [facility] [id number] 0 03/09 M-spi ke 2, SPE g/dL 0.0 0.0 0.4 High FINAL Marlene Guzmán * [facility] , [address] [address] [facility] [place] [id number] 0 [place]/09 Immun oglob ulin measu remen t IgG, quant mg/dL 610.0 1616.0 1080.49 Test performed at [facility] on a Binding Site Optilite Analyzer that uses a turbidime tric method for analysis. Patient testing should not be performed using multiple methodolo gies due to analytica l variation seen between test methodolo gies. FINAL Marlene Guzmán * [facility] , [address] [facility] [place] [id number] 0 03/09 Immun oglob ulin measu remen t IgA, quant mg/dL 61.0 348.0 577.26 High Test performed at [facility] on a Binding Site Optilite Analyzer that uses a turbidime tric method for analysis. Patient testing should not be performed using multiple methodolo gies due to analytica l variation seen between test methodolo gies. FINAL Marlene Guzmán * [facility] , [address] [facility] [place] [id number] 0 03/09 Immun oglob ulin measu remen t IgM, quant mg/dL 35.0 242.0 91.00 Test performed at [facility] on a Binding Site Optilite Analyzer that uses a turbidime tric method for analysis. Patient testing should not be performed using multiple methodolo gies due to analytica l variation seen between test methodolo josefina. 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 Malissa Hernandez to see Vero Henry in regard to a recent diagnosis of EIN/CAH. 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 * Presented with c/o [...] with myosure * Pathology:?? 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 y.o. with abnormal uterine bleeding/PMB [...] signed by Abbie Gallo MD 08/03/2023 12:46 [employer]PER[employer]ISH[employer] RO[employer]
--- OUTSIDE RECORDS SUMMARY | 2025-07-06 23:23 | XMS_ITS ---
Author Name Interface, [id number] lity Address [address] [facility] [address] [place] [address] [facility] Address [address] [facility] [address] [place] [address] Support Name Relationship Address Phone Greg Henry [...] Ordered By Specimen Source Lab Address 11/05 [facility] other lab See tune up mechanic d 11/08 [facility] other lab See tune up mechanic d 11/22 Color (ua) Yellow FINAL Hafsa Bud [facility] [place], [address] [facility] [address] [place] [phone] Phone: () - 11/22 Appea ying (ua) Clear FINAL Hafsaanabel Rubi [facility] - [place], [address] [place] [address] [address] [place] [phone] 0 Phone: () - 11/22 Gluco se (ua), qual 500.0% Abnor mal FINAL H[facility]saanabel [facility] [place], [address] [place] [address] [address] [place] [phone] Phone: () - 11/22 Bilir ubin (ua) Negativ e FINAL Hafsaanabel [facility] - [place], [address] [place] [address] [address] [place] [phone] 0 Phone: () - 11/22 Urina lysis , aceto ne or keton e chapo s measu remen t Negativ e FINAL Hafsaanabel [facility] - [place], [address] [place] [address] [address] [place] [phone] 0 Phone: () - 11/22 Speci fic gravi ty (ua) 1.005 1.02 1.025% Abnor mal FINAL Hafsaanabel [facility] - [place], [address] [place] [address] [address] [place] [phone] 0 Phone: () - 11/22 Blood (ua) Negativ e FINAL Hafsaanabel [facility] - [place], [address] [place] [address] [address] [place] [phone] 0 Phone: () - 11/22 pH (ua) 5.0 8.0 6.0% FINAL Hafsaanabel [facility] [place], [address] [place] [address] [address] [place] [phone] 0 Phone: () - 11/22 Prote in (ua) Negativ e FINAL Hafsaanabel [facility] - [place], [address] [place] [address] [address] [place] [phone] 0 Phone: () - 11/22 Urobi linog en (ua) 0.2 1.0 0.2% FINAL [facility]afsaanabel [facility] [place], [address] [place] [address] 210 [facility] [phone] 0 Phone: () - 11/22 Nitri te (ua) Negativ e FINAL Hafsa Rubi a [facility], [address] [place] [address] 210 [facility] [phone] 0 Phone: () - 11/22 Leuko cyte jerson ase (ua), qual Negativ e FINAL Hafsa Rubi [facility], [address] [place] [address] [phone] Phone: () - 11/22 UA comme nt 1 Dipstic k negativ e- Culture ordered per provide r FINAL Hafsa Rubi [facility], [address] [place] [address] [phone] Phone: () - 11/22 Urine cultu re panel CULTU RE, URINE , ROUTI NE SEE NOTE Abnor mal CULTURE, URINE, ROUTINEMi microfilm clerk Number: [id number] est Status: FinalSpec imen Source: UrineSpec imen [...] f. FINAL Hafsaanabel Farrell [facility] [address] [facility] [id number] 4 12/18 [facility] other lab See d 04/18 Total prote in g/dL 6.3 8.2 6.9 FINAL Marlene Guzmán * [facility], [facility] [address] [place] [address] [id number] 0 04/18 Album in, SPE g/dL 3.31 5.31 3.97 FINAL Marlene Guzmán * [facility], [facility] [address] [place] [address] [id number] 0 04/18 Alpha -1 globu tony g/dL 0.19 0.42 0.26 FINAL Marlene Guzmán * [facility], [address] [facility] [facility] [address] [id number] 0 04/18 Alpha -2 globu tony g/dL 0.44 1.03 0.63 FINAL Marlene Guzmán * [facility], [address] [facility] [facility] [address] [id number] 0 04/18 Beta globu tony g/dL 0.52 1.05 0.95 FINAL Marlene Guzmán * [facility], [address] [facility] [address] [id number] 0 04/18 Gamma globu tony g/dL 0.59 1.46 1.10 FINAL Marlene Guzmán * [facility], [facility] [address] [place] [address] [id number] 0 04/18 Elect abiola jackson Gemma in Lab resul t note Previou sly identif ied parapro teins detecte d in gamma region. Were 0.3 and 0.4 gm/dL, now 0.3 and 0.3 gm/dL. Interpr eted and signed by Adrienne Swanson MD on 024 FINAL Marlene Guzmán * [facility], [facility] [address] [place] [address] [id number] 0 04/18 M-spi ke, SPE, g/dL g/dL 0.0 0.0 0.3 High FINAL Marlene Guzmán * [facility], [address] [facility] [address] [id number] 0 04/18 M-spi ke 2, SPE g/dL 0.0 0.0 0.3 High FINAL Marlene Guzmán * [facility], [facility] [address] [place] [address] [id number] 04/18 Immun oglob ulin measu remen t IgG, quant mg/dL 610.0 1616.0 946.67 Test performed at [facility] on a Binding Site Optilite Analyzer that uses a turbidime tric method for analysis. Patient testing should not be performed using multiple methodreal gikim due to analytica l variation seen between test methodreal rocha. FINAL Marlene Guzmán * [facility] [address] [place] [address] [id number] 0 04/18 Immun oglob ulin measu remen t IgA, quant mg/dL 61.0 348.0 493.08 High Test performed at [facility] on a Binding Site Optilite Analyzer that uses a turbidime tric method for analysis. Patient testing should not be performed using multiple methodolo gies due to analytica l variation seen between test methodolo gies. FINAL Marlene Stroud [facility] [address] [place] [address] [id number] 0 04/18 Immun oglob ulin measu remen t IgM, quant mg/dL 35.0 242.0 75.62 Test performed at [facility] on a Binding Site Optilite Analyzer that uses a turbidime tric method for analysis. Patient testing should not be performed using multiple methodolo gies due to analytica l variation seen between test methodolo gies. FINAL Marlene Stroud [facility] a [address] [place] [address] [id number] 0 04/18 Free kappa / lambd a with K/L ratio , serum Decherd light chain , free, serum , mg/dL mg/dL 0.33 1.94 3.62 High Test performed at [facility] on a Binding Site Optilite Analyzer that uses a turbidime tric method for analysis. Patient testing should not be performed using multiple methodolo gies due to analytica l variation seen between test methodolo gies. FINAL Marlene Guzmán * Jann a [address] [place] [address] [id number] 0 04/18 Free kappa / lambd a with K/L ratio , serum Lambd a light chain , free, serum , mg/dL mg/dL 0.57 2.63 3.13 High Test performed at [facility] on a Binding Site Optilite Analyzer that uses a turbidime tric method for analysis. Patient testing should not be performed using multiple methodolo gies due to analytica l variation seen between test methodolo gies. FINAL Marlene Stroud [facility] [address] [place] [address] [id number] 0 04/18 Free kappa / lambd a with K/L ratio , serum K/L light chain ratio , free, serum 0.26 1.65 1.16% FINAL Marlene Guzmán * [facility] [place], [address] [facility] [place] [id number] 0 04/18 CBC w/ auto diff WBC K/uL 3.0 8.9 7.0 FINAL Marlene [facility] - [place], [address] [place] [id number] 0 Phone: () - 04/18 CBC w/ auto diff HGB g/dL 11.3 15.2 14.0 FINAL Marlene Rubi [facility] - [place], [address] [place] [id number] 0 Phone: () - 04/18 CBC w/ auto diff PLT K/uL 113.0 364.0 164 FINAL Marlene Rubi a [facility] - [place], [address] [place] [id number] 0 Phone: () - 04/18 CBC w/ auto diff Tammy # (ANC) K/uL 1.6 6.6 4.5 FINAL Marlene [facility] - [place], [address] [place] [id number] 0 Phone: () - 04/18 CBC w/ auto diff Tammy % % 43.0 74.0 64.0 FINAL Marlene [facility] - [place], [address] [place] [id number] 0 Phone: () - 04/18 CBC w/ auto diff IG % % 0.0 0.5 0.3 FINAL Marlene Rubi a [facility] - [place], [address] [place] [id number] 0 Phone: () - 04/18 CBC w/ auto diff IG # K/uL 0.0 0.03 0.02 FINAL Marlene Rubi a [facility] - [place], [address] [place] [id number] 0 Phone: () - 04/18 CBC w/ auto diff LY % % 14.0 41.0 28.2 FINAL Marlene [facility] - [place], [address] [place] [id number] 0 Phone: () - 04/18 CBC w/ auto diff MO % % 6.0 15.0 6.0 FINAL Marlene [facility] - [place], [address] [place] [id number] 0 Phone: () - 04/18 CBC w/ auto diff EO % % 0.0 7.0 1.1 FINAL Marlene [facility] - [place], [address] [place] [id number] 0 Phone: () - 04/18 CBC w/ auto diff BA % % 0.0 2.0 0.4 FINAL Marlene [facility] - [place], [address] [place] [id number] 0 Phone: () - 04/18 CBC w/ auto diff LY # K/uL 0.4 3.6 2.0 FINAL Marlene [facility] - [place], [address] [place] [id number] 0 Phone: () - 04/18 CBC w/ auto diff MO # K/uL 0.2 1.3 0.4 FINAL Marlene [facility] - [place], [address] [place] [id number] 0 Phone: () - 04/18 CBC w/ auto diff EO # K/uL 0.0 0.6 0.1 FINAL Marlene [facility] - [place], [address] [place] [id number] 0 Phone: () - 04/18 CBC w/ auto diff BA # K/uL 0.0 0.2 0.0 FINAL Marlene [facility] - [place], [address] [place] [id number] 0 Phone: () - 04/18 CBC w/ auto diff NRBC % #/100W BC 0.0 0.2 0.0 FINAL Marlene [facility] - [place], [address] [place] [id number] 0 Phone: () - 04/18 CBC w/ auto diff RBC M/uL 3.9 5.1 4.84 FINAL Marlene [facility] - [place], [address] [place] [id number] 0 Phone: () - 04/18 CBC w/ auto diff HCT % 35.0 48.0 40.4 FINAL Marlene Ramirez [facility] - [place], [address] [place] [id number] 0 Phone: () - 04/18 CBC w/ auto diff MCV fL 80.0 104.0 83.5 FINAL Marlene Ramirez [facility] - [place], [address] [place] [id number] 0 Phone: () - 04/18 CBC w/ auto diff MCH pg 26.0 35.0 28.9 FINAL Marlene Guzmán [facility] - [place], [address] [place] [id number] 0 Phone: () - 04/18 CBC w/ auto diff MCHC g/dL 30.0 35.0 34.7 FINAL Marlene Guzmán [facility] - [place], [address] [place] [id number] 0 Phone: () - 04/18 CBC w/ auto diff MPV fL 9.5 13.4 9.7 FINAL Marlene Guzmán [facility] - [place], [address] [place] [id number] 0 Phone: () - 04/18 CBC w/ auto diff RDW % 11.4 16.1 13.80 FINAL Marlene Guzmán [facility] [place], [address] [facility] [place] [id number] 0 Phone: ( 04/18 CMP Album in g/dL 3.5 5.0 4.0 FINAL Marlene Guzmán * [facility] [place], [address] [facility] [id number] 0 04/18 CMP Alkal ine phosp hatas e U/L 36.0 125.0 105 FINAL Marlene Guzmán * [facility], [address] [facility] [id number] 0 04/18 CMP ALT/S GPT U/L 0.0 34.0 35 High FINAL Marlene Guzmán * [facility], [address] [facility] [id number] 0 04/18 CMP AST/S GOT U/L 14.0 36.0 44 High FINAL Marlene Guzmán * [facility], [address] [facility] [id number] 0 04/18 CMP BUN mg/dL 7.0 17.0 21.0 High FINAL Marlene Guzmán * [facility], [address] [facility] [id number] 0 04/18 CMP Calci um mg/dL 8.4 10.2 8.8 FINAL Marlene Guzmán * [facility], [address] [facility] [id number] 0 04/18 CMP Chlor nilson mmol/L 96.0 107.0 106 FINAL Marlene Guzmán * [facility], [address] [facility] [id number] 0 04/18 CMP CO2 mmol/L 22.0 30.0 [...] 96 hour stability window. FINAL Marlene Stroud [facility] [address] [id number] 0 04/18 CMP Creat inine mg/dL 0.66 1.25 0.70 FINAL Marlene Guzmán * [facility], [address] [place] [address] [id number] 0 04/18 CMP GFR estim ate ml/min /1.73m ^2 97.7 GFR is calculate d using the CKD-EPI equation. FINAL Marlene Stroud [facility], [facility] [address] [id number] 0 04/18 CMP Gluco se mg/dL 74.0 100.0 267 High FINAL Marlene Stroud [facility], [facility] [address] [place] [address] [id number] 0 04/18 CMP Potas sium mmol/L 3.5 5.1 4.0 FINAL Marlene Stroud [facility], [facility] [address] [id number] 0 04/18 CMP Sodiu m mmol/L 137.0 145.0 136 Low FINAL Marlene Stroud [facility], [facility] [address] [id number] 0 04/18 CMP Bilir ubin, total mg/dL 0.2 1.3 1.0 FINAL Marlene Stroud [facility], [address] [facility] [address] [id number] 0 04/18 CMP Total prote in g/dL 6.3 8.2 7.3 FINAL Marlene Guzmán * [facility] [place], [address] [facility] [address] [id number] 0 04/18 [facility] other lab See tune up mechanic d 12/20 [facility] other lab See tune up mechanic d 12/20 [facility] other lab See tune up mechanic d 03/09 Free kappa / lambd a with K/L ratio , serum Decherd light chain , free, serum , mg/dL mg/dL 0.33 1.94 4.35 High Test performed at [facility] on a Binding Site Optilite Analyzer that uses a turbidime tric method for analysis. Patient testing should not be performed using multiple methodolo gies due to analytica l variation seen between test methodolo gies. FINAL Marlene Guzmán * [facility] , [address] [facility] [address] [id number] 0 03/09 Free kappa / lambd a with K/L ratio , serum Lambd a light chain , free, serum , mg/dL mg/dL 0.57 2.63 3.83 High Test performed at [facility] on a Binding Site Optilite Analyzer that uses a turbidime tric method for analysis. Patient testing should not be performed using multiple methodolo gies due to analytica l variation seen between test methodolo gies. FINAL Marlene Guzmán * [facility] , [address] [facility] [address] [id number] 0 03/09 Free kappa / lambd a with K/L ratio , serum K/L light chain ratio , free, serum 0.26 1.65 1.14% FINAL Marlene Guzmán * [facility] , [address] [facility] [address] [id number] 0 03/09 CMP Album in g/dL 3.5 5.0 3.8 FINAL Marlene Guzmán * [facility] , [address] [facility] [id number] 0 03/09 CMP Alkal ine phosp hatas e U/L 36.0 125.0 106 FINAL Marleneanabel Guzmán * [facility] , [address] [facility] [id number] 0 03/09 CMP ALT/S GPT U/L 0.0 34.0 37 High FINAL Marlene Guzmán * [facility] , [address] [facility] [id number] 0 03/09 CMP AST/S GOT U/L 14.0 36.0 36 FINAL Marlene Guzmán * [facility] , [address] [facility] [id number] 0 03/09 CMP BUN mg/dL 7.0 17.0 18.0 High FINAL Marlene Guzmán * [facility] , [address] [facility] [id number] 0 03/09 CMP Calci um mg/dL 8.4 10.2 8.9 FINAL Marleneanabel Guzmán * [facility] , [address] [facility] [id number] 0 03/09 CMP Chlor nilson mmol/L 96.0 107.0 99 FINAL Marleneanabel Guzmán * [facility] , [address] [facility] [id number] 0 03/09 CMP CO2 mmol/L 22.0 30.0 [...] * [facility] , [address] [facility] [address] [facility] [id number] 0 03/09 CMP Creat inine mg/dL 0.66 1.25 0.70 FINAL Marleneanabel Guzmán * [facility] , [address] [facility] [address] [facility] [id number] 0 03/09 CMP GFR estim ate ml/min /1.73m ^2 97.1 GFR is calculate d using the CKD-EPI equation. FINAL Marleneanabel Guzmán * [facility] , [address] [facility] [address] [facility] [id number] 0 03/09 CMP Gluco se mg/dL 74.0 100.0 363 Criti sami High FINAL Marlene Guzmán * [facility] , [address] [facility] [address] [facility] [id number] 0 03/09 CMP Potas sium mmol/L 3.5 5.1 3.9 FINAL Marlene Ramirez * [facility] , [address] [facility] [address] [facility] [id number] 0 03/09 CMP Sodiu m mmol/L 137.0 145.0 134 Low FINAL Marleneanabel Guzmán * [facility] , [address] [facility] [address] [facility] [id number] 0 03/09 CMP Bilir ubin, total mg/dL 0.2 1.3 1.1 FINAL Marleneanabel Guzmán * [facility] , [address] [facility] [address] [facility] [id number] 0 03/09 CMP Total prote in g/dL 6.3 8.2 7.3 FINAL Marlene Guzmán * [facility] , [address] [facility] [address] [facility] [id number] 0 03/09 CBC w/ auto diff WBC K/uL 3.0 8.9 7.1 FINAL Marlene Guzmán [place] [facility] [place] [facility] , [address] [place] [id number] 0 03/09 CBC w/ auto diff HGB g/dL 11.3 15.2 14.4 FINAL Marlene Guzmán [place] [facility] [place] [facility] , [address] [place] [id number] 0 03/09 CBC w/ auto diff PLT K/uL 113.0 364.0 179 FINAL Marlene Guzmán [place] [facility] [place] [facility] , [address] [place] [id number] 0 03/09 CBC w/ auto diff Tammy # (ANC) K/uL 1.6 6.6 4.7 FINAL Marlene Guzmán [facility] [place] [facility] , [address] [place] [id number] 0 03/09 CBC w/ auto diff Tammy % % 43.0 74.0 65.7 FINAL Marlene Guzmán [place] [facility] [place] [facility] , [address] [place] [id number] 0 03/09 CBC w/ auto diff IG % % 0.0 0.5 0.6 High FINAL Marlene Guzmán [place] [facility] [place] [facility] , [address] [place] [id number] 0 03/09 CBC w/ auto diff IG # K/uL 0.0 0.03 0.04 High FINAL Marlene Guzmán [place] [facility] [place] [facility] , [address] [place] [id number] 0 03/09 CBC w/ auto diff LY % % 14.0 41.0 25.8 FINAL Marlene Guzmán [place] [facility] [place] [facility] , [address] [place] [id number] 0 03/09 CBC w/ auto diff MO % % 6.0 15.0 6.2 FINAL Marlene Guzmán [place] [facility] [place] [facility] , [address] [place] [id number] 0 03/09 CBC w/ auto diff EO % % 0.0 7.0 1.1 FINAL Marlene Guzmán [place] [facility] [place] [facility] , [address] [place] [id number] 0 03/09 CBC w/ auto diff BA % % 0.0 2.0 0.6 FINAL Marlene Guzmán [place] [facility] [place] [facility] , [address] [place] [id number] 0 03/09 CBC w/ auto diff LY # K/uL 0.4 3.6 1.8 FINAL Marlene Guzmán [place] [facility] [place] [facility] , [address] [place] [id number] 0 03/09 CBC w/ auto diff MO # K/uL 0.2 1.3 0.4 FINAL Marlene Guzmán [place] [facility] [place] [facility] , [address] [place] [id number] 0 03/09 CBC w/ auto diff EO # K/uL 0.0 0.6 0.1 FINAL Marlene Guzmán [place] [facility] [place] [facility] , [address] [place] [id number] 0 03/09 CBC w/ auto diff BA # K/uL 0.0 0.2 0.0 FINAL Marlene Guzmán [place] [facility] [place] [facility] , [address] [place] [id number] 0 03/09 CBC w/ auto diff NRBC % #/100W BC 0.0 0.2 0.0 FINAL Marlene Guzmán [place] [facility] [place] [facility] , [address] [place] [id number] 0 03/09 CBC w/ auto diff RBC M/uL 3.9 5.1 5.08 FINAL Marlene Guzmán [place] [facility] [place] [facility] , [address] [place] [id number] 0 03/09 CBC w/ auto diff HCT % 35.0 48.0 42.9 FINAL Marlene Guzmán [facility] [place] [facility] , [address] [place] [id number] 0 03/09 CBC w/ auto diff MCV fL 80.0 104.0 84.4 FINAL Marlene Guzmán [facility] - [place] [facility] , [address] [place] [id number] 0 03/09 CBC w/ auto diff MCH pg 26.0 35.0 28.3 FINAL Marlene Guzmán [facility] - [place] [facility] , [address] [place] [id number] 0 03/09 CBC w/ auto diff MCHC g/dL 30.0 35.0 33.6 FINAL Marlene Guzmán [facility] [place] [facility] , [address] [place] [id number] 0 03/09 CBC w/ auto diff MPV fL 9.5 13.4 9.6 FINAL Marlene Guzmán [place] [facility] , [address] [place] [id number] 0 03/09 CBC w/ auto diff RDW % 11.4 16.1 14.20 FINAL Marlene Guzmán [facility] , [address] [facility] [id number] 0 03/09 Total prote in g/dL 6.3 8.2 7.1 FINAL Marlene Guzmán * [facility] , [address] [facility] [address] [facility] [id number] 0 03/09 Album in, SPE g/dL 3.31 5.31 4.70 FINAL Marlene Guzmán * [facility] , [address] [facility] [address] [id number] 0 03/09 Alpha -1 globu tony g/dL 0.19 0.42 0.23 FINAL Marlene Guzmán * [facility] , [address] [facility] [address] [id number] 0 03/09 Alpha -2 globu tony g/dL 0.44 1.03 0.52 FINAL Marlene Guzmán * [facility] , [address] [facility] [address] [id number] 0 03/09 Beta globu tony g/dL 0.52 1.05 0.80 FINAL Marlene Guzmán * [facility] , [address] [facility] [address] [id number] 0 03/09 Gamma globu tony g/dL 0.59 1.46 0.85 FINAL Marlene Guzmán * [facility] , [address] [facility] [address] [id number] 0 03/09 Gemma Rodriguez in Lab resul t note Previou sly identif ied parapro teins detecte d in gamma region. Is now 0.3 and 0.4 gm/dL. Interpr eted and signed by Luis Guillermo MD on 025 FINAL Marlene Guzmán * [facility] , [address] [facility] [address] [facility] [id number] 0 03/09 M-spi ke, SPE, g/dL g/dL 0.0 0.0 0.3 High FINAL Marlene Guzmán * [facility] , [address] [facility] [id number] 0 03/09 M-spi ke 2, SPE g/dL 0.0 0.0 0.4 High FINAL Marlene Guzmán * [facility] , [address] [facility] [id number] 0 03/09 Immun oglob ulin measu remen t IgG, quant mg/dL 610.0 1616.0 1080.49 Test performed at [facility] on a Binding Site [employer]il[employer] Analyzer that uses a turbidime tric method for analysis. Patient testing should not be performed using multiple methodolo gies due to analytica l variation seen between test methodolo gies. FINAL Marlene Guzmán * [facility] , [address] [facility] [id number] 0 03/09 Immun oglob ulin measu remen t IgA, quant mg/dL 61.0 348.0 577.26 High Test performed at [facility] on a Binding Site Optilite Analyzer that uses a turbidime tric method for analysis. Patient testing should not be performed using multiple methodolo gies due to analytica l variation seen between test methodolo gies. FINAL Marlene Guzmán * [facility] , [address] [facility] [id number] 0 03/09 Immun oglob ulin measu remen t IgM, quant mg/dL 35.0 242.0 91.00 Test performed at [facility] on a Binding Site Optilite Analyzer that uses a turbidime tric method for analysis. Patient testing should not be performed using multiple methodolo gies due to analytica l variation seen between test methodolo josefina. FINAL Marlene Guzmán * [facility] , [address] [facility] [id number] 0 04/03 [facility] other lab See attache malave [...] 04/10/2025 Body Temperature 97.50 Notes Section * MANAGER MEDICAL Onc Consult Note (Amended) GYNECOLOGIC ONCOLOGY CONSULT Patient Name: VERO HENRY Patient : 1960 Patient Referring Physician: Malissa Hernandez MD (SECTION CUTTER) Primary GYNOncologist: Marlene Guzmán (Hematology/Oncology) Date of Service: 08/03/2023 Reason for Consult: I was asked by Dr. Malissa Hernandez to see Vero Henry in regard to a recent diagnosis of EIN/CAH. History of Present Illness ([facility]): 63 y.o.?? * Presented with c/o [...] with myosure * Pathology:?? 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 Anxious, , female with somewhat [...] record:05/23/2019 Last record:05/23/2019; ) Assessment & Plan ([facility]): 63?? y.o. 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
--- OUTSIDE RECORDS SUMMARY | 2025-07-06 23:23 | XMS_ITS ---
Author Name Interface, [id number] lity Address [address] [facility] [address] [place] [address] [facility] Address [address] [facility] [address] [place] [address] Support Name Relationship Address Phone Greg Ch [...] FINAL [facility] [place], [address] [place] [address] 210 [facility] [phone] Phone: () - 11/22 Appea ying (ua) Clear FINAL [facility] [place], [address] [place] [address] 210 [facility] [phone] Phone: () - 11/22 Gluco se (ua), qual 500.0% Abnor mal FINAL [facility] [place], [address] [facility] 210 [facility] [phone] Phone: () - 11/22 Bilir ubin (ua) Negativ e FINAL [facility] [place], [address] [place] [address] 210 [facility] [phone] Phone: () - 11/22 Urina lysis , aceto ne or keton e chapo s measu remen t Negativ e FINAL [facility] [place], [address] [facility] 210 [place] [phone] 0 Phone: () - 11/22 Speci fic gravi ty (ua) 1.005 1.02 1.025% Abnor mal FINAL [facility] [place], [address] [facility] 210 [place] [phone] Phone: () - 11/22 Blood (ua) Negativ e FINAL [facility] [place], [address] [place] [address] 210 [place] [phone] 0 Phone: () - 11/22 pH (ua) 5.0 8.0 6.0% FINAL [facility] [place], [address] [place] [address] 210 [facility] [phone] Phone: () - 11/22 Prote in (ua) Negativ e FINAL [facility] [place], [address] [place] [address] 210 [place] [phone] 0 Phone: () - 11/22 Urobi linog en (ua) 0.2 1.0 0.2% FINAL [facility] [place], [address] [place] [address] 210 [place] [phone] 0 Phone: () - 11/22 Nitri te (ua) Negativ e FINAL [facility] [place], [address] [place] [address] 210 [place] [phone] 0 Phone: () - 11/22 Leuko cyte jerson ase (ua), qual Negativ e FINAL [facility]sa [facility] [place], [address] [place] [address] 210 [place] [phone] 0 Phone: () - 11/22 UA comme nt 1 Dipstic k negativ e- Culture ordered per provide r FINAL [facility]afsa [facility] [place], [address] [place] [address] 210 [place] [phone] Phone: () - 11/22 Urine cultu re panel CULTU RE, URINE , ROUTI NE SEE NOTE Abnor mal 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 FINAL Hafsa Bud [facility], [facility] [address] [facility] [id number] 4 12/18 [facility] other lab See bail attacher d 04/18 Total prote in g/dL 6.3 8.2 6.9 FINAL Marlene Guzmán * [facility], [address] [facility] [address] [place] [address] [id number] 04/18 Album in, SPE g/dL 3.31 5.31 3.97 FINAL Marlene Guzmán * [facility], [facility] [address] [place] [address] [id number] 04/18 Alpha -1 globu tony g/dL 0.19 0.42 0.26 FINAL Marlene Guzmán * [facility], [facility]0 [facility] [address] [place] [address] [id number] 0 04/18 Alpha -2 globu tony g/dL 0.44 1.03 0.63 FINAL Marlene Guzmán * [facility], [facility] [address] [place] [address] [id number] 04/18 Beta globu tony g/dL 0.52 1.05 0.95 FINAL Marlene Guzmán * [facility], [address] [facility] [address] [place] [address] [id number] 0 04/18 Gamma globu tony g/dL 0.59 1.46 1.10 FINAL Marlene Guzmán * [facility], [address] [facility] [address] [place] [address] [id number] 04/18 Elect Gemma layton in Lab resul t note Previou sly identif ied parapro teins detecte d in gamma region. Were 0.3 and 0.4 gm/dL, now 0.3 and 0.3 gm/dL. Interpr eted and signed by Adrienne Swanson MD on 024 FINAL Marlene Guzmán * [facility], [facility]0 [facility] [address] [place] [address] [id number] 04/18 M-spi ke, SPE, g/dL g/dL 0.0 0.0 0.3 High FINAL Marleneanabel Guzmán * [facility], [address] [facility] [id number] 0 04/18 M-spi ke 2, SPE g/dL 0.0 0.0 0.3 High FINAL Marlene Guzmán * [facility], [address] [facility] [address] [facility] [id number] 0 04/18 Immun oglob ulin measu remen t IgG, quant mg/dL 610.0 1616.0 946.67 Test performed at [facility] on a Binding Site Optilite Analyzer that uses a turbidime tric method for analysis. Patient testing should not be performed using multiple methodolo gies due to analytica l variation seen between test methodolo gies. FINAL Marlene Guzmán * [facility], [address] [id number] 0 04/18 Immun oglob ulin measu remen t IgA, quant mg/dL 61.0 348.0 493.08 High Test performed at [facility] on a Binding Site Optilite Analyzer that uses a turbidime tric method for analysis. Patient testing should not be performed using multiple methodolo gies due to analytica l variation seen between test methodolo gies. FINAL Marlene Guzmán * [facility], [address] [id number] 0 04/18 Immun oglob ulin measu remen t IgM, quant mg/dL 35.0 242.0 75.62 Test performed at [facility] on a Binding Site Optilite Analyzer that uses a turbidime tric method for analysis. Patient testing should not be performed using multiple methodolo gies due to analytica l variation seen between test methodolo gies. FINAL Marlene Guzmán * [facility], [address] [id number] 0 04/18 Free kappa / lambd a with K/L ratio , serum [place] light chain , free, serum , mg/dL mg/dL 0.33 1.94 3.62 High Test performed at [facility] on a Binding Site Optilite Analyzer that uses a turbidime tric method for analysis. Patient testing should not be performed using multiple methodolo gies due to analytica l variation seen between test methodolo gies. FINAL Marlene Stroud [facility], [address] [id number] 0 04/18 Free kappa / lambd a [...] methodolo gies. FINAL Marlene [facility], [address] [facility] [address] [id number] 0 04/18 Free kappa / lambd a with K/L ratio , serum K/L light chain ratio , free, serum 0.26 1.65 1.16% FINAL Marlene [facility], [address] [facility] [address] [id number] 0 04/18 CBC w/ auto diff WBC K/uL 3.0 8.9 7.0 FINAL Marlene [facility] [place], [address] [facility] [address] [facility] [id number] 0 Phone: () - 04/18 CBC w/ auto diff HGB g/dL 11.3 15.2 14.0 FINAL Marlene [facility] - [place], [address] [place] [id number] 0 Phone: () - 04/18 CBC w/ auto diff PLT K/uL 113.0 364.0 164 FINAL Marlene [facility] - [place], [address] [place] [id number] 0 Phone: () - 04/18 CBC w/ auto diff Tammy # (ANC) K/uL 1.6 6.6 4.5 FINAL Marlene [facility] - [place], [address] [place] [id number] 0 Phone: () - 04/18 CBC w/ auto diff Tammy % % 43.0 74.0 64.0 FINAL Marlene Ramirez [facility] [place], [address] [place] [id number] 0 Phone: () - 04/18 CBC w/ auto diff IG % % 0.0 0.5 0.3 FINAL Marlene Ramirez [facility] [place], [address] [place] [id number] 0 Phone: () - 04/18 CBC w/ auto diff IG # K/uL 0.0 0.03 0.02 FINAL Marlene Ramirez [facility] [place], [address] [place] [id number] 0 Phone: () - 04/18 CBC w/ auto diff LY % % 14.0 41.0 28.2 FINAL Marlene Guzmán [facility] [place], [address] [place] [id number] 0 Phone: () - 04/18 CBC w/ auto diff MO % % 6.0 15.0 6.0 FINAL Marlene Guzmán [facility] [place], [address] [place] [id number] 0 Phone: () - 04/18 CBC w/ auto diff EO % % 0.0 7.0 1.1 FINAL Marlene Ramirez [facility] [place], [address] [place] [id number] 0 Phone: () - 04/18 CBC w/ auto diff BA % % 0.0 2.0 0.4 FINAL Marlene [facility] [place], [address] [place] [id number] 0 Phone: () - 04/18 CBC w/ auto diff LY # K/uL 0.4 3.6 2.0 FINAL Marlene [facility] - [place], [address] [place] [id number] 0 Phone: () - 04/18 CBC w/ auto diff MO # K/uL 0.2 1.3 0.4 FINAL Marlene [facility] - [place], [address] [place] [id number] 0 Phone: () - 04/18 CBC w/ auto diff EO # K/uL 0.0 0.6 0.1 FINAL Marlene [facility] - [place], [address] [place] [id number] 0 Phone: () - 04/18 CBC w/ auto diff BA # K/uL 0.0 0.2 0.0 FINAL Marlene [facility] - [place], [address] [place] [id number] 0 Phone: () - 04/18 CBC w/ auto diff NRBC % #/100W BC 0.0 0.2 0.0 FINAL Marlene [facility] - [place], [address] [place] [id number] 0 Phone: () - 04/18 CBC w/ auto diff RBC M/uL 3.9 5.1 4.84 FINAL Marlene [facility] [place], [address] [place] [id number] 0 Phone: () - 04/18 CBC w/ auto diff HCT % 35.0 48.0 40.4 FINAL Marlene Guzmán [facility] [place], [address] [place] [id number] 0 Phone: () - 04/18 CBC w/ auto diff MCV fL 80.0 104.0 83.5 FINAL Marlene Guzmán [facility] [place], [address] [place] [id number] 0 Phone: () - 04/18 CBC w/ auto diff MCH pg 26.0 35.0 28.9 FINAL Marlene Guzmán [facility] [place], [address] [place] [id number] 0 Phone: () - 04/18 CBC w/ auto diff MCHC g/dL 30.0 35.0 34.7 FINAL Marlene Guzmán [facility] [place], [address] [place] [id number] 0 Phone: () - 04/18 CBC w/ auto diff MPV fL 9.5 13.4 9.7 FINAL Marlene Guzmán [facility] [place], [address] [place] [id number] 0 Phone: () - 04/18 CBC w/ auto diff RDW % 11.4 16.1 13.80 FINAL Marlene Guzmán [facility] [place], [address] [place] [id number] 0 Phone: () - 04/18 CMP Album in g/dL 3.5 5.0 4.0 FINAL Marlene Guzmán * [facility] [place], [address] [place] [id number] 0 04/18 CMP Alkal ine phosp hatas e U/L 36.0 125.0 105 FINAL Marlene Guzmán * [facility] [place], [address] [place] [id number] 0 04/18 CMP ALT/S GPT U/L 0.0 34.0 35 High FINAL Marlene Guzmán * [facility], [address] [facility] [address] [id number] 0 04/18 CMP AST/S GOT U/L 14.0 36.0 44 High FINAL Marlene Guzmán * [facility], [address] [facility] [address] [id number] 0 04/18 CMP BUN mg/dL 7.0 17.0 21.0 High FINAL Marlene Guzmán * [facility], [address] [facility] [address] [id number] 0 04/18 CMP Calci um mg/dL 8.4 10.2 8.8 FINAL Marlene Guzmán * [facility], [address] [facility] [address] [id number] 0 04/18 CMP Chlor nilson mmol/L 96.0 107.0 106 FINAL Marlene Guzmán * [facility], [address] [facility] [address] [id number] 0 04/18 CMP CO2 mmol/L 22.0 30.0 [...] hour stability window. FINAL Marlene Guzmán * [facility], [address] [facility] [address] [id number] 0 04/18 CMP Creat inine mg/dL 0.66 1.25 0.70 FINAL Marlene Guzmán * [facility], [address] [facility] [id number] 0 04/18 CMP GFR estim ate ml/min /1.73m ^2 97.7 GFR is calculate d using the CKD-EPI equation. FINAL Marlene Guzmán * [facility], [address] [facility] [id number] 0 04/18 CMP Gluco se mg/dL 74.0 100.0 267 High FINAL Marlene Guzmán * [facility], [address] [facility] [id number] 0 04/18 CMP Potas sium mmol/L 3.5 5.1 4.0 FINAL Marlene Guzmán * [facility], [address] [facility] [id number] 0 04/18 CMP Sodiu m mmol/L 137.0 145.0 136 Low FINAL Marlene Guzmán * [facility], [address] [facility] [id number] 0 04/18 CMP Bilir ubin, total mg/dL 0.2 1.3 1.0 FINAL Marlene Guzmán * [facility], [address] [facility] [id number] 0 04/18 CMP Total prote in g/dL 6.3 8.2 7.3 FINAL Marlene Guzmán * [facility], [address] [facility] [id number] 0 04/18 [facility] other lab See bail attacher d 12/20 [facility] other lab See bail attacher d 12/20 Misc other lab See bail attacher d 03/09 Free kappa / lambd a with K/L ratio , serum [place] light chain , free, serum , mg/dL mg/dL 0.33 1.94 4.35 High Test performed at [facility] on a Binding Site Optilite Analyzer that uses a turbidime tric method for analysis. Patient testing should not be performed using multiple methodolo gies due to analytica l variation seen between test methodolo gies. FINAL Marlene Guzmán * [facility] , [address] [facility] [address] [facility] [id number] 0 03/09 Free kappa / lambd a [...] * [facility] , [address] [facility] [address] [id number] 0 03/09 Free kappa / lambd a with K/L ratio , serum K/L light chain ratio , free, serum 0.26 1.65 1.14% FINAL Marlene Guzmán * [facility] , [address] [facility] [address] [id number] 0 03/09 CMP Album in g/dL 3.5 5.0 3.8 FINAL Marlene Guzmán * [facility] , [address] [facility] [address] [id number] 0 03/09 CMP Alkal ine phosp hatas e U/L 36.0 125.0 106 FINAL Marlene Guzmán * [facility] , [address] [facility] [address] [id number] 0 03/09 CMP ALT/S GPT U/L 0.0 34.0 37 High FINAL Marlene Guzmán * [facility] , [address] [facility] [address] [id number] 0 03/09 CMP AST/S GOT U/L 14.0 36.0 36 FINAL Marlene Ramirez * [facility] , [address] [facility] [address] [facility] [id number] 0 03/09 CMP BUN mg/dL 7.0 17.0 18.0 High FINAL Marlene Guzmán * [facility] , [address] [facility] [address] [facility] [id number] 0 03/09 CMP Calci um mg/dL 8.4 10.2 8.9 FINAL Marlene Guzmán * [facility] , [address] [facility] [address] [facility] [id number] 0 03/09 CMP Chlor nilson mmol/L 96.0 107.0 99 FINAL Marlene Guzmán * [facility] , [address] [facility] [address] [facility] [id number] 0 03/09 CMP CO2 mmol/L 22.0 30.0 [...] hour stability window. FINAL Marlene Guzmán * [facility] , [address] [facility] [address] [facility] [id number] 0 03/09 CMP Creat inine mg/dL 0.66 1.25 0.70 FINAL Marlene Guzmán * [facility] , [address] [facility] [address] [facility] [id number] 0 03/09 CMP GFR estim ate ml/min /1.73m ^2 97.1 GFR is calculate d using the CKD-EPI equation. FINAL Marlene Guzmán * [facility] , [address] [facility] [address] [id number] 0 03/09 CMP Gluco se mg/dL 74.0 100.0 363 Criti sami High FINAL Marlene Guzmán * [facility] , [address] [facility] [address] [facility] [id number] 0 03/09 CMP Potas sium mmol/L 3.5 5.1 3.9 FINAL Marlene Guzmán * [facility] , [address] [facility] [address] [facility] [id number] 0 03/09 CMP Sodiu m mmol/L 137.0 145.0 134 Low FINAL Marlene Guzmán * [facility] , [address] [facility] [address] [facility] [id number] 0 03/09 CMP Bilir ubin, total mg/dL 0.2 1.3 1.1 FINAL Marlene Guzmán * [facility] , [address] [facility] [address] [facility] [id number] 0 03/09 CMP Total prote in g/dL 6.3 8.2 7.3 FINAL Marlene Guzmán * [facility] , [address] [facility] [address] [facility] [id number] 0 03/09 CBC w/ auto diff WBC K/uL 3.0 8.9 7.1 FINAL Marlene Guzmán [place] [facility] [place] [facility] , [address] [place] [id number] 0 03/09 CBC w/ auto diff HGB g/dL 11.3 15.2 14.4 FINAL Marlene Guzmán [place] [facility] [place] [facility] , [address] [place] [id number] 0 03/09 CBC w/ auto diff PLT K/uL 113.0 364.0 179 FINAL Marlene Guzmán [place] [facility] [place] [facility] , [address] [place] [id number] 0 03/09 CBC w/ auto diff Tammy # (ANC) K/uL 1.6 6.6 4.7 FINAL Marlene Guzmán [place] [facility] [place] [facility] , [address] [place] [id number] 0 03/09 CBC w/ auto diff Tammy % % 43.0 74.0 65.7 FINAL Marlene Guzmán [place] [facility] [place] [facility] , [address] [place] [id number] 0 03/09 CBC w/ auto diff IG % % 0.0 0.5 0.6 High FINAL Marlene Guzmán [place] [facility] [place] [facility] , [address] [place] [id number] 0 03/09 CBC w/ auto diff IG # K/uL 0.0 0.03 0.04 High FINAL Marlene Guzmán [place] [facility] [place] [facility] , [address] [place] [id number] 0 03/09 CBC w/ auto diff LY % % 14.0 41.0 25.8 FINAL Marlene Guzmán [place] [facility] [place] [facility] , [address] [place] [id number] 0 03/09 CBC w/ auto diff MO % % 6.0 15.0 6.2 FINAL Marlene Guzmán [place] [facility] [place] [facility] , [address] [place] [id number] 0 03/09 CBC w/ auto diff EO % % 0.0 7.0 1.1 FINAL Marlene Guzmán [place] [facility] [place] [facility] , [address] [place] [id number] 0 03/09 CBC w/ auto diff BA % % 0.0 2.0 0.6 FINAL Marlene Guzmán [place] [facility] [place] [facility] , [address] [place] [id number] 0 03/09 CBC w/ auto diff LY # K/uL 0.4 3.6 1.8 FINAL Marlene Guzmán [place] [facility] [place] [facility] , [address] [place] [id number] 0 03/09 CBC w/ auto diff MO # K/uL 0.2 1.3 0.4 FINAL Marlene Guzmán [place] [facility] [place] [facility] , [address] [place] [id number] 0 03/09 CBC w/ auto diff EO # K/uL 0.0 0.6 0.1 FINAL Marlene Guzmán [place] [facility] [place] [facility] , [address] [place] [id number] 0 03/09 CBC w/ auto diff BA # K/uL 0.0 0.2 0.0 FINAL Marlene Guzmán [place] [facility] [place] [facility] , [address] [place] [id number] 0 03/09 CBC w/ auto diff NRBC % #/100W BC 0.0 0.2 0.0 FINAL Marlene Guzmán [place] [facility] [place] [facility] , [address] [place] [id number] 0 03/09 CBC w/ auto diff RBC M/uL 3.9 5.1 5.08 FINAL Marlene Guzmán [place] [facility] [place] [facility] , [address] [place] [id number] 0 03/09 CBC w/ auto diff HCT % 35.0 48.0 42.9 FINAL Marlene Guzmán [facility] , [address] [place] [facility] [id number] 0 03/09 CBC w/ auto diff MCV fL 80.0 104.0 84.4 FINAL Marlene Guzmán [facility] , [address] [facility] [address] [place] [facility] [id number] 0 03/09 CBC w/ auto diff MCH pg 26.0 35.0 28.3 FINAL Marlene Guzmán [facility] , [address] [facility] [address] [facility] [id number] 0 03/09 CBC w/ auto diff MCHC g/dL 30.0 35.0 33.6 FINAL Marlene Guzmán [facility] , [address] [facility] [address] [facility] [id number] 0 03/09 CBC w/ auto diff MPV fL 9.5 13.4 9.6 FINAL Marlene Guzmán [facility] , [address] [facility] [address] [facility] [id number] 0 03/09 CBC w/ auto diff RDW % 11.4 16.1 14.20 FINAL Marlene Guzmán [facility] , [address] [facility] [address] [facility] [id number] 0 03/09 Immun oglob ulin measu remen t IgG, quant mg/dL 610.0 1616.0 1080.49 Test performed at [facility] on a Binding Site Optilite Analyzer that uses a turbidime tric method for analysis. Patient testing should not be performed using multiple methodreal rocha due to analytica l variation seen between test methodreal rocha. FINAL Marlene Guzmán * [facility] , [address] [facility] [id number] 0 03/09 Immun oglob ulin measu remen [...] Guzmán * [facility] , [facility] [address] [id number] 0 03/09 Immun oglob ulin measu remen t IgM, quant mg/dL 35.0 242.0 91.00 Test performed at [facility] on a Binding Site Optilite Analyzer that uses a turbidime tric method for analysis. Patient testing should not be performed using multiple methodolo gies due to analytica l variation seen between test methodolo gies. FINAL Marlene Guzmán * [facility] , [facility]0 [facility] [address] [id number] 0 03/09 Total prote in g/dL 6.3 8.2 7.1 FINAL Marlene Guzmán * [facility] , [facility] [address] [place] [address] [id number] 0 03/09 Album in, SPE g/dL 3.31 5.31 4.70 FINAL Marlene Guzmán * [facility] , [facility] [address] [id number] 0 03/09 Alpha -1 globu tony g/dL 0.19 0.42 0.23 FINAL Marlene Guzmán * [facility] , [facility] [address] [id number] 0 03/09 Alpha -2 globu tony g/dL 0.44 1.03 0.52 FINAL Marlene Guzmán * [facility] , [facility] [facility] [address] [id number] 0 03/09 Beta globu tony g/dL 0.52 1.05 0.80 FINAL Marlene Guzmán * [facility] , [address] [facility] [address] [id number] 0 03/09 Gamma globu tony g/dL 0.59 1.46 0.85 FINAL Marlene Guzmán * [facility] , [address] [facility] [address] [id number] 0 03/09 Elect Gemma layton in Lab resul t note Previou sly identif ied parapro teins detecte d in gamma region. Is now 0.3 and 0.4 gm/dL. Interpr eted and signed by Luis Guillermo MD on 025 FINAL Marlene Guzmán * [facility] , [facility] [address] [id number] 0 03/09 M-spi ke, SPE, g/dL g/dL 0.0 0.0 0.3 High FINAL Marlene Guzmán * [facility] , [address] [facility] [address] [id number] 0 03/09 M-spi ke 2, SPE g/dL 0.0 0.0 0.4 High FINAL Marlene Guzmán * [facility] , [address] [facility] [address] [id number] 0 04/03 Misc other lab See bail attacher d Medications Date Name Route Dose [...] 70 04/10/2025 BMI 53.23 Notes Section * 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 History of Present Illness ([employer] Director Oncology): 63 y.o.?? * Presented with c/o [...] endometrial stripe. * 05/27/[address] Malisas Hernandez.?? EMB performed * Pathology:?? Fragments of benign inactive endometrium and cohesive morular metaplasia.?? Further sampling recommended.?? * 06/28/23 Hysteroscopy, D & C with myosure * Pathology:?? EIN * 08/30/23 robotic assisted total laparoscopic hysterectomy, bilateral salpingo-oophorectomy * Pathology: focal residual atypical hyperplasia, negative for carcinoma?? 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 Anxious, , female tearful??throughout visit. [...] record:05/23/2019 Last record:05/23/2019; ) Assessment & Plan ([employer] Director Oncology): 63?? y.o. with abnormal uterine bleeding/PMB [...]
--- OUTSIDE RECORDS SUMMARY | 2025-07-06 23:23 | XMS_ITS ---
Author Name Interface, D4Ayhhrdu lity Address [address] [facility] [address] [place] [address] [facility] Address [address] [place] [address] Support Name Relationship Address Phone Greg Henry [...] Ordered By Specimen Source Lab Address 11/05 [facility] [place] See promotional marketing analyst d 11/08 Mis other lab See promotional marketing analyst d 11/22 Color (ua) Yellow FINAL [facility] [place], [address] [facility] [address] [place] [phone] 0 Phone: () - 11/22 Appea ying (ua) Clear FINAL [facility] [place], [address] [facility] [address] [place] [phone] 0 Phone: () - 11/22 Gluco se (ua), qual 500.0% Abnor mal FINAL [facility] [place], [address] [facility] [address] [place] [phone] 0 Phone: () - 11/22 Bilir ubin (ua) Negativ e FINAL [facility] [place], [address] [facility] [address] [place] [phone] 0 Phone: () - 11/22 Urina lysis , aceto ne or keton e chapo s measu remen t Negativ e FINAL [facility] [place], [address] [facility] [address] [place] [phone] 0 Phone: () - 11/22 Speci fic gravi ty (ua) 1.005 1.02 1.025% Abnor mal FINAL [facility] [place], [address] [facility] [address] [place] [phone] 0 Phone: () - 11/22 Blood (ua) Negativ e FINAL [facility] [place], [address] [facility] [address] [place] [phone] 0 Phone: () - 11/22 pH (ua) 5.0 8.0 6.0% FINAL [facility] [place], [address] [facility] [address] [place] [phone] 0 Phone: () - 11/22 Prote in (ua) Negativ e FINAL [facility] [place], [address] [place] [address] [address] [place] [phone] 0 Phone: () - 11/22 Urobi linog en (ua) 0.2 1.0 0.2% FINAL [facility] [place], [address] [place] [address] [address] [place] [phone] 0 Phone: () - 11/22 Nitri te (ua) Negativ e FINAL [facility] [place], [address] [facility] [address] [place] [phone] 0 Phone: () - 11/22 Leuko cyte jerson ase (ua), qual Negativ e FINAL [facility] [place], [address] [facility] [address] [place] [phone] 0 Phone: () - 11/22 UA comme nt 1 Dipstic k negativ e- Culture ordered per provide r FINAL [facility] [place], [address] [facility] [address] [facility] [phone] 0 Phone: () - 11/22 Urine cultu re panel CULTU RE, URINE , ROUTI NE SEE NOTE Abnor mal 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 FINAL Hafsa Farrell [facility] [address] [facility] [id number] 4 12/18 [facility] [place] See promotional marketing analyst d 04/18 Total prote in g/dL 6.3 8.2 6.9 FINAL Marlene Ramirez * [facility], [address] [id number] 0 04/18 Album in, SPE g/dL 3.31 5.31 3.97 FINAL Marlene Guzmán * [facility], [address] [id number] 0 04/18 Alpha -1 globu tony g/dL 0.19 0.42 0.26 FINAL Marlene Guzmán * [facility], [address] [id number] 0 04/18 Alpha -2 globu tony g/dL 0.44 1.03 0.63 FINAL Marlene Guzmán * [facility], [address] [id number] 0 04/18 Beta globu tony g/dL 0.52 1.05 0.95 FINAL Marlene Ramirez * [facility], [address] [id number] 0 04/18 Gamma globu tony g/dL 0.59 1.46 1.10 FINAL Marlene Guzmán * [facility], [address] [id number] 0 04/18 Gemma Rodriguez in Lab resul t note Previou sly identif ied parapro teins detecte d in gamma region. Were 0.3 and 0.4 gm/dL, now 0.3 and 0.3 gm/dL. Interpr eted and signed by Adrienne Swanson MD on 024 FINAL Marlene Guzmán * [facility], [address] [facility] [address] [id number] 0 04/18 M-spi ke, SPE, g/dL g/dL 0.0 0.0 0.3 High FINAL Marlene Guzmán * [facility], [address] [facility] [address] [id number] 0 04/18 M-spi ke 2, SPE g/dL 0.0 0.0 0.3 High FINAL Marleneanabel Guzmán * [facility], [facility] [address] [place] [address] [id number] 0 04/18 Immun oglob ulin measu remen t IgG, quant mg/dL 610.0 1616.0 946.67 Test performed at [facility] on a Binding [employer] Optilite Analyzer that uses a turbidime tric method for analysis. Patient testing should not be performed using multiple methodolo gies due to analytica l variation seen between test methodolo gies. FINAL Marleneanabel Guzmán * [facility] [address] [place] [address] [id number] 0 04/18 Immun oglob ulin measu remen t IgA, quant mg/dL 61.0 348.0 493.08 High Test performed at [facility] on a Binding [employer] Optilite Analyzer that uses a turbidime tric method for analysis. Patient testing should not be performed using multiple methodolo gies due to analytica l variation seen between test methodolo gies. FINAL Marlene Guzmán * [facility], [address] [place] [address] [place] [address] [id number] 0 04/18 Immun oglob ulin measu remen t IgM, quant mg/dL 35.0 242.0 75.62 Test performed at [facility] on a Binding Site Optilite Analyzer that uses a turbidime tric method for analysis. Patient testing should not be performed using multiple methodolo gies due to analytica l variation seen between test methodolo gies. FINAL Marlene Forte [facility], [facility] [address] [id number] 0 04/18 Free kappa / lambd a with K/L ratio , serum [place] light chain , free, serum , mg/dL mg/dL 0.33 1.94 3.62 High Test performed at [facility] on a Binding Site Optilite Analyzer that uses a turbidime tric method for analysis. Patient testing should not be performed using multiple methodolo gies due to analytica l variation seen between test methodolo gies. FINAL Marlene Rubi a [facility], [address] [facility] [address] [id number] 0 04/18 Free kappa / lambd a with K/L ratio , serum Lambd a light chain , free, serum , mg/dL mg/dL 0.57 2.63 3.13 High Test performed at [facility] on a Binding [employer] Optilite Analyzer that uses a turbidime tric method for analysis. Patient testing should not be performed using multiple methodolo gies due to analytica l variation seen between test methodolo gies. FINAL Marlene Rubi a [facility], [address] [id number] 0 04/18 Free kappa / lambd a with K/L ratio , serum K/L light chain ratio , free, serum 0.26 1.65 1.16% FINAL Marlene [facility], [address] [id number] 0 04/18 CBC w/ auto diff WBC K/uL 3.0 8.9 7.0 FINAL Marlene Rubi [facility] [place], [address] [facility] [address] [facility] [id number] 0 Phone: () - 04/18 CBC w/ auto diff HGB g/dL 11.3 15.2 14.0 FINAL [facility] [place], [address] [place] [id number] 0 Phone: () - 04/18 CBC w/ auto diff PLT K/uL 113.0 364.0 164 FINAL Marlene [facility] [place], [address] [place] [id number] 0 Phone: () - 04/18 CBC w/ auto diff Tammy # (ANC) K/uL 1.6 6.6 4.5 FINAL Marlene [facility] - [place], [address] [place] [id number] 0 Phone: () - 04/18 CBC w/ auto diff Tammy % % 43.0 74.0 64.0 FINAL [facility] - [place], [address] [place] [id number] 0 Phone: () - 04/18 CBC w/ auto diff IG % % 0.0 0.5 0.3 FINAL Mar[facility] - [place], [address] [place] [id number] 0 Phone: () - 04/18 CBC w/ auto diff IG # K/uL 0.0 0.03 0.02 FINAL Marlene [facility] - [place], [address] [place] [id number] 0 Phone: () - 04/18 CBC w/ auto diff LY % % 14.0 41.0 28.2 FINAL Marlene Rubi [facility] - [place], [address] [place] [id number] 0 Phone: () - 04/18 CBC w/ auto diff MO % % 6.0 15.0 6.0 FINAL Marlene Guzmán [facility] - [place], [address] [place] [id number] 0 Phone: () - 04/18 CBC w/ auto diff EO % % 0.0 7.0 1.1 FINAL [facility] - [place], [address] [place] [id number] 0 Phone: () - 04/18 CBC w/ auto diff BA % % 0.0 2.0 0.4 FINAL [facility] - [place], [address] [place] [id number] 0 Phone: () - 04/18 CBC w/ auto diff LY # K/uL 0.4 3.6 2.0 FINAL Marlene Guzmán [facility] - [place], [address] [place] [id number] 0 Phone: () - 04/18 CBC w/ auto diff MO # K/uL 0.2 1.3 0.4 FINAL Marlene Ramirez [facility] [place], [address] [place] [id number] 0 Phone: () - 04/18 CBC w/ auto diff EO # K/uL 0.0 0.6 0.1 FINAL Marlene Ramirez [facility] - [place], [address] [place] [id number] 0 Phone: () - 04/18 CBC w/ auto diff BA # K/uL 0.0 0.2 0.0 FINAL Marlene Ramirez [facility] - [place], [address] [place] [id number] 0 Phone: () - 04/18 CBC w/ auto diff NRBC % #/100W BC 0.0 0.2 0.0 FINAL Marlene Guzmán [facility] - [place], [address] [place] [id number] 0 Phone: () - 04/18 CBC w/ auto diff RBC M/uL 3.9 5.1 4.84 FINAL Marlene Guzmán [facility] - [place], [address] [place] [id number] 0 Phone: () - 04/18 CBC w/ auto diff HCT % 35.0 48.0 40.4 FINAL Marlene Rubi a [facility] - [place], [address] [place] [id number] 0 Phone: () - 04/18 CBC w/ auto diff MCV fL 80.0 104.0 83.5 FINAL Marlene [facility] - [place], [address] [place] [id number] 0 Phone: () - 04/18 CBC w/ auto diff MCH pg 26.0 35.0 28.9 FINAL Marlene Rubi a [facility] - [place], [address] [place] [id number] 0 Phone: () - 04/18 CBC w/ auto diff MCHC g/dL 30.0 35.0 34.7 FINAL Marlene Rubi [facility] - [place], [address] [place] [id number] 0 Phone: () - 04/18 CBC w/ auto diff MPV fL 9.5 13.4 9.7 FINAL Marlene Rubi [facility] - [place], [address] [place] [id number] 0 Phone: () - 04/18 CBC w/ auto diff RDW % 11.4 16.1 13.80 FINAL Marlene Rubi [facility] - [place], [address] [place] [id number] 0 Phone: () - 04/18 CMP Album in g/dL 3.5 5.0 4.0 FINAL Marlene Guzmán * [facility] [place], [address] [place] [id number] 0 04/18 CMP Alkal ine phosp hatas e U/L 36.0 125.0 105 FINAL Marlene Guzmán * [facility] [place], [address] [facility] [id number] 0 04/18 CMP ALT/S GPT U/L 0.0 34.0 35 High FINAL Marlene Guzmán * [facility], [address] [facility] [id number] 0 04/18 CMP AST/S GOT U/L 14.0 36.0 44 High FINAL Marlene Guzmán * [facility], [address] [facility] [id number] 0 04/18 CMP BUN mg/dL 7.0 17.0 21.0 High FINAL Marlene Guzmán * [facility], [address] [facility] [id number] 0 04/18 CMP Calci um mg/dL 8.4 10.2 8.8 FINAL Marlene Guzmán * [facility], [address] [facility] [id number] 0 04/18 CMP Chlor nilson mmol/L 96.0 107.0 106 FINAL Marlene Guzmán * [facility], [address] [facility] [id number] 0 04/18 CMP CO2 mmol/L 22.0 30.0 [...] window. FINAL Marlene Guzmán * [facility], [address] [facility] [id number] 0 04/18 CMP Creat inine mg/dL 0.66 1.25 0.70 FINAL Marlene Guzmán * [facility], [address] [facility] [address] [id number] 0 04/18 CMP GFR estim ate ml/min /1.73m ^2 97.7 GFR is calculate d using the CKD-EPI equation. FINAL Marlene Stroud [facility], [address] [facility] [address] [id number] 0 04/18 CMP Gluco se mg/dL 74.0 100.0 267 High FINAL Marlene Guzmán * [facility] [address] [id number] 0 04/18 CMP Potas sium mmol/L 3.5 5.1 4.0 FINAL Marlene Guzmán * [facility], [address] [facility] [address] [id number] 0 04/18 CMP Sodiu m mmol/L 137.0 145.0 136 Low FINAL Marlene Guzmán * [facility], [address] [facility] [address] [id number] 0 04/18 CMP Bilir ubin, total mg/dL 0.2 1.3 1.0 FINAL Marlene Guzmán * [facility], [address] [facility] [address] [id number] 0 04/18 CMP Total prote in g/dL 6.3 8.2 7.3 FINAL Marlene Guzmán * [facility], [address] [facility] [address] [id number] 0 04/18 [facility] [place] See promotional marketing analyst d 12/20 Mis other lab See promotional marketing analyst d 12/20 [facility] [place] lab See promotional marketing analyst d 03/09 Free kappa / lambd a with K/L ratio , serum [place] light chain , free, serum , mg/dL mg/dL 0.33 1.94 4.35 High Test performed at [facility] on a Binding Site Optilite Analyzer that uses a turbidime tric method for analysis. Patient testing should not be performed using multiple methodolo gies due to analytica l variation seen between test methodolo gies. FINAL Marlene Guzmán * [facility] , [address] [facility] [address] [facility] [id number] 0 03/09 Free kappa / lambd a with K/L ratio , serum Lambd a light chain , free, serum , mg/dL mg/dL 0.57 2.63 3.83 High Test performed at [facility] on a Binding Site Optilite Analyzer that uses a turbidime tric method for analysis. Patient testing should not be performed using multiple methodolo gies due to analytica l variation seen between test methodolo gies. FINAL Marlene Guzmán * [facility] , [address] [facility] [address] [id number] 0 03/09 Free kappa / lambd a with K/L ratio , serum K/L light chain ratio , free, serum 0.26 1.65 1.14% FINAL Marlene Guzmán * [facility] , [address] [facility] [address] [id number] 0 03/09 CMP Album in g/dL 3.5 5.0 3.8 FINAL Marlene Guzmán * [facility] , [address] [facility] [address] [id number] 0 03/09 CMP Alkal ine phosp hatas e U/L 36.0 125.0 106 FINAL Marlene Guzmán * [facility] , [address] [facility] [address] [facility] [id number] 0 03/09 CMP ALT/S GPT U/L 0.0 34.0 37 High FINAL Marlene Guzmán * [facility] , [address] [facility] [id number] 0 03/09 CMP AST/S GOT U/L 14.0 36.0 36 FINAL Marlene Guzmán * [facility] , [address] [facility] [id number] 0 03/09 CMP BUN mg/dL 7.0 17.0 18.0 High FINAL Marlene Guzmán * [facility] , [address] [facility] [id number] 0 03/09 CMP Calci um mg/dL 8.4 10.2 8.9 FINAL Marlene Guzmán * [facility] , [address] [facility] [id number] 0 03/09 CMP Chlor nilson mmol/L 96.0 107.0 99 FINAL Marlene Guzmán * [facility] , [address] [facility] [id number] 0 03/09 CMP CO2 mmol/L 22.0 30.0 [...] hour stability window. FINAL Marleneanabel Guzmán * [facility] , [address] [facility] [id number] 0 03/09 CMP Creat inine mg/dL 0.66 1.25 0.70 FINAL Marlene Guzmán * [facility] , [address] [facility] [id number] 0 03/09 CMP GFR estim ate ml/min /1.73m ^2 97.1 GFR is calculate d using the CKD-EPI equation. FINAL Marlene Ramirez * [facility] , [address] [facility] [id number] 0 03/09 CMP Gluco se mg/dL 74.0 100.0 363 Criti sami High FINAL Marlene Ramirez * [facility] , [address] [facility] [id number] 0 03/09 CMP Potas sium mmol/L 3.5 5.1 3.9 FINAL Marlene Ramirez * [facility] , [address] [facility] [id number] 0 03/09 CMP Sodiu m mmol/L 137.0 145.0 134 Low FINAL Marlene Ramirez * [facility] , [address] [facility] [id number] 0 03/09 CMP Bilir ubin, total mg/dL 0.2 1.3 1.1 FINAL Marlene Ramirez * [facility] , [address] [facility] [id number] 0 03/09 CMP Total prote in g/dL 6.3 8.2 7.3 FINAL Marlene Guzmán * [facility] , [address] [facility] [id number] 0 03/09 CBC w/ auto diff WBC K/uL 3.0 8.9 7.1 FINAL Marlene Guzmán [place] [facility] [place] [facility] , [address] [place] [id number] 0 03/09 CBC w/ auto diff HGB g/dL 11.3 15.2 14.4 FINAL Marlene Guzmán [place] [facility] [place] [facility] , [address] [place] [id number] 0 03/09 CBC w/ auto diff PLT K/uL 113.0 364.0 179 FINAL Marlene Guzmán [place] [facility] [place] [facility] , [address] [place] [id number] 0 03/09 CBC w/ auto diff Tammy # (ANC) K/uL 1.6 6.6 4.7 FINAL Marlene Guzmán [place] [facility] [place] [facility] , [address] [place] [id number] 0 03/09 CBC w/ auto diff Tammy % % 43.0 74.0 65.7 FINAL Marlene Guzmán [place] [facility] [place] [facility] , [address] [place] [id number] 0 03/09 CBC w/ auto diff IG % % 0.0 0.5 0.6 High FINAL Marlene Guzmán [place] [facility] [place] [facility] , [address] [place] [id number] 0 03/09 CBC w/ auto diff IG # K/uL 0.0 0.03 0.04 High FINAL Marlene Guzmán [place] [facility] [place] [facility] , [address] [place] [id number] 0 03/09 CBC w/ auto diff LY % % 14.0 41.0 25.8 FINAL Marlene Guzmán [place] [facility] [place] [facility] , [address] [place] [id number] 0 03/09 CBC w/ auto diff MO % % 6.0 15.0 6.2 FINAL Marlene Guzmán [place] [facility] [place] [facility] , [address] [place] [id number] 0 03/09 CBC w/ auto diff EO % % 0.0 7.0 1.1 FINAL Marlene Guzmán [place] [facility] [place] [facility] , [address] [place] [id number] 0 03/09 CBC w/ auto diff BA % % 0.0 2.0 0.6 FINAL Marlene Guzmán [place] [facility] [place] [facility] , [address] [place] [id number] 0 03/09 CBC w/ auto diff LY # K/uL 0.4 3.6 1.8 FINAL Marlene Guzmán [place] [facility] [place] [facility] , [address] [place] [id number] 0 03/09 CBC w/ auto diff MO # K/uL 0.2 1.3 0.4 FINAL Marlene Guzmán [place] [facility] [place] [facility] , [address] [place] [id number] 0 03/09 CBC w/ auto diff EO # K/uL 0.0 0.6 0.1 FINAL Marlene Guzmán [place] [facility] [place] [facility] , [address] [place] [id number] 0 03/09 CBC w/ auto diff BA # K/uL 0.0 0.2 0.0 FINAL Marlene Guzmán [place] [facility] [place] [facility] , [address] [place] [id number] 0 03/09 CBC w/ auto diff NRBC % #/100W BC 0.0 0.2 0.0 FINAL Marlene Guzmán [place] [facility] [place] [facility] , [address] [place] [id number] 0 03/09 CBC w/ auto diff RBC M/uL 3.9 5.1 5.08 FINAL Marlene Guzmán [place] [facility] [place] [facility] , [address] [place] [id number] 0 03/09 CBC w/ auto diff HCT % 35.0 48.0 42.9 FINAL Marlene Guzmán [place] [facility] [place] [facility] , [address] [place] [id number] 0 03/09 CBC w/ auto diff MCV fL 80.0 104.0 84.4 FINAL Marlene Guzmán [place] [facility] [place] [facility] , [address] [place] [id number] 0 03/09 CBC w/ auto diff MCH pg 26.0 35.0 28.3 FINAL Marlene Guzmán [place] [facility] [place] [facility] , [address] [place] [id number] 0 03/09 CBC w/ auto diff MCHC g/dL 30.0 35.0 33.6 FINAL Marlene Guzmán [place] [facility] [place] [facility] , [address] [place] [id number] 0 03/09 CBC w/ auto diff MPV fL 9.5 13.4 9.6 FINAL Marlene Guzmán [place] [facility] [place] [facility] , [address] [place] [id number] 0 03/09 CBC w/ auto diff RDW % 11.4 16.1 14.20 FINAL Marlene Guzmán [place] [facility] [place] [facility] , [address] [place] [id number] 0 03/09 Total prote in g/dL 6.3 8.2 7.1 FINAL Marlene Guzmán * [place] [facility] [place] [facility] , [address] [place] [id number] 0 03/09 Album in, SPE g/dL 3.31 5.31 4.70 FINAL Marlene Guzmán * [facility] , [address] [address] [id number] 0 03/09 Alpha -1 globu tony g/dL 0.19 0.42 0.23 FINAL Marlene Guzmán * [facility] , [address] [facility] [facility] [id number] 0 03/09 Alpha -2 globu tony g/dL 0.44 1.03 0.52 FINAL Marlene Guzmán * [facility] , [address] [facility] [id number] 0 03/09 Beta globu tony g/dL 0.52 1.05 0.80 FINAL Marlene Guzmán * [facility] , [address] [facility] [id number] 0 03/09 Gamma globu tony g/dL 0.59 1.46 0.85 FINAL Marlene Guzmán * [facility] , [address] [id number] 0 03/09 Elect Gemma layton in Lab resul t note Previou sly identif ied parapro teins detecte d in gamma region. Is now 0.3 and 0.4 gm/dL. Interpr eted and signed by Luis Guillermo MD on 025 FINAL Marlene Guzmán * [facility] , [address] [address] [facility] [facility] [id number] 0 03/09 M-spi ke, SPE, g/dL g/dL 0.0 0.0 0.3 High FINAL Marlene Guzmán * [facility] , [address] [facility] [id number] 0 03/09 M-spi ke 2, SPE g/dL 0.0 0.0 0.4 High FINAL Marlene Guzmán * [facility] , [address] [facility] [id number] 0 03/09 Immun oglob ulin measu remen t IgG, quant mg/dL 610.0 1616.0 1080.49 Test performed at [facility] on a Binding [employer] Analyzer that uses a turbidime tric method for analysis. Patient testing should not be performed using multiple methodolo gies due to analytica l variation seen between test methodolo gies. FINAL Marlene Ramirez * [facility] , [address] [facility] [id number] 0 03/09 Immun oglob ulin measu remen t IgA, quant mg/dL 61.0 348.0 577.26 High Test performed at [facility] on a Binding Site [employer] Analyzer that uses a turbidime tric method for analysis. Patient testing should not be performed using multiple methodolo gies due to analytica l variation seen between test methodolo gies. FINAL Marlene Ramirez * [facility] , [address] [facility] [id number] 0 03/09 Immun oglob ulin measu remen t IgM, quant mg/dL 35.0 242.0 91.00 Test performed at [facility] on a Binding Site [employer] Analyzer that uses a turbidime tric method for analysis. Patient testing should not be performed using multiple methodolo gies due to analytica l variation seen between test methodolo gies. FINAL Marlene Guzmán * [facility] , [address] [facility] [id number] 0 04/03 [facility] See attache malave Medications Date [...] 04/10/2025 Pain Scale 7.00 Notes Section * SHIPPING LEAD Follow-Up GYNECOLOGIC ONCOLOGY FOLLOW-UP VISIT Patient Name: JOSE ANGEL HENRY : 1960 Date of Visit: 10/11/2023 Referring Provider: Malissa Hernandez MD ([facility]) Attending: Marlene Guzmán (Hematology/Oncology) Chief Complaint ([facility]): 6 week post op?? History of Present Illness ([facility]): 63 y.o.?? 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 Genetic Testing ([facility]): Interval History ([facility]) She was transferred from [facility] to [facility] after surgery from 09/03-09/09/23.?? 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 Anxious, , female with somewhat [...] record:05/23/2019 Last record:05/23/2019; ) Assessment & Plan ([facility]): 63?? y.o. 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 Pathology benign. Reviewedpathology, operative findings, expected recovery.?? She is recovering well, no further restrictions.?? 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
--- OUTSIDE RECORDS SUMMARY | 2025-07-06 23:24 | XMS_ITS ---
Author Name Interface, [id number] lity Address [address] [facility] [address] [place] [address] [facility] Oncology Address [address] [facility] [address] [place] [address] Support Name Relationship Address Phone Greg Ch [...] FINAL [facility] [place], [address] [place] [address] 210 [facility] [phone] Phone: () - 11/22 Appea ying (ua) Clear FINAL [facility] [place], [address] [place] [address] 210 [facility] [phone] Phone: () - 11/22 Gluco se (ua), qual 500.0% Abnor mal FINAL [facility] [place], [address] [facility] 210 [facility] [phone] Phone: () - 11/22 Bilir ubin (ua) Negativ e FINAL [facility] [place], [address] [place] [address] 210 [facility] [phone] Phone: () - 11/22 Urina lysis , aceto ne or keton e chapo s measu remen t Negativ e FINAL [facility] [place], [address] [facility] [address] [place] [phone] 0 Phone: () - 11/22 Speci fic gravi ty (ua) 1.005 1.02 1.025% Abnor mal FINAL [facility] [place], [address] [facility] [address] [place] [phone] 0 Phone: () - 11/22 Blood (ua) Negativ e FINAL [facility] [place], [address] [place] [address] [address] [place] [phone] 0 Phone: () - 11/22 pH (ua) 5.0 8.0 6.0% FINAL [facility] [place], [address] [place] [address] 210 [facility] [phone] Phone: () - 11/22 Prote in (ua) Negativ e FINAL [facility] [place], [address] [place] [address] [address] [place] [phone] 0 Phone: () - 11/22 Urobi linog en (ua) 0.2 1.0 0.2% FINAL [facility] [place], [address] [place] [address] [address] [place] [phone] 0 Phone: () - 11/22 Nitri te (ua) Negativ e FINAL [facility] [place], [address] [place] [address] [address] [place] [id number] [phone] Phone: () - 11/22 Leuko cyte jerson ase (ua), qual Negativ e FINAL [facility] [place], [address] [place] [address] [address] [place] [phone] Phone: () - 11/22 UA comme nt 1 Dipstic k negativ e- Culture ordered per provide r FINAL [facility] [place], [address] [place] [address] [address] [place] [phone] Phone: () - 11/22 Urine cultu re panel CULTU RE, URINE , ROUTI NE SEE NOTE 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 FINAL Hafsa Bud [facility], [facility] [address] [facility] [id number] 4 12/18 [facility] other lab See occupational medicine officer d 04/18 Total prote in g/dL 6.3 8.2 6.9 FINAL Marlene Guzmán * [facility], [address] [facility] [address] [place] [address] [id number] 0 04/18 Album in, SPE g/dL 3.31 5.31 3.97 FINAL Marlene Guzmán * [facility], [facility] [address] [place] [address] [id number] 0 04/18 Alpha -1 globu tony g/dL 0.19 0.42 0.26 FINAL Marlene Guzmán * [facility], [facility] [address] [place] [address] [id number] 0 04/18 Alpha -2 globu tony g/dL 0.44 1.03 0.63 FINAL Marlene Guzmán * [facility] [address] [place] [address] [id number] 0 04/18 Beta globu tony g/dL 0.52 1.05 0.95 FINAL Marlene Guzmán * [facility], [address] [facility] [address] [place] [address] [id number] 0 04/18 Gamma globu tony g/dL 0.59 1.46 1.10 FINAL Marlene Guzmán * [facility], [address] [facility] [address] [place] [address] [id number] 0 04/18 Elect Gemma layton in Lab resul t note Previou sly identif ied parapro teins detecte d in gamma region. Were 0.3 and 0.4 gm/dL, now 0.3 and 0.3 gm/dL. Interpr eted and signed by Adrienne Swanson MD on 024 FINAL Marlene Guzmán * [facility], [facility] [address] [place] [address] [id number] 0 04/18 M-spi ke, SPE, g/dL g/dL 0.0 0.0 0.3 High FINAL Marleneanabel Guzmán * [facility], [address] [facility] [id number] 04/18 M-spi ke 2, SPE g/dL 0.0 0.0 0.3 High FINAL Marlene Guzmán * [facility], [address] [facility] [address] [facility] [id number] 04/18 Immun oglob ulin measu remen t IgG, quant mg/dL 610.0 1616.0 946.67 Test performed at [facility] on a Binding Site Optilite Analyzer that uses a turbidime tric method for analysis. Patient testing should not be performed using multiple methodolo gies due to analytica l variation seen between test methodolo gies. FINAL Marlene Guzmán * [facility], [address] [id number] 0 04/18 Immun oglob ulin measu remen t IgA, quant mg/dL 61.0 348.0 493.08 High Test performed at [facility] on a Binding Site Optilite Analyzer that uses a turbidime tric method for analysis. Patient testing should not be performed using multiple methodolo gies due to analytica l variation seen between test methodolo gies. FINAL Marlene Guzmán * [facility] On[facility], [address] [id number] 0 04/18 Immun oglob ulin measu remen t IgM, quant mg/dL 35.0 242.0 75.62 Test performed at [facility] on a Binding Site Optilite Analyzer that uses a turbidime tric method for analysis. Patient testing should not be performed using multiple methodolo gies due to analytica l variation seen between test methodolo gies. FINAL Marlene Guzmán * [facility], [address] [id number] 0 04/18 Free kappa / lambd a with K/L ratio , serum Manzanita light chain , free, serum , mg/dL mg/dL 0.33 1.94 3.62 High Test performed at [facility] on a Binding Site Optilite Analyzer that uses a turbidime tric method for analysis. Patient testing should not be performed using multiple methodolo gies due to analytica l variation seen between test methodolo gies. FINAL Marlene Stroud Jannot a Oncology [facility], [address] [id number] 0 04/18 Free kappa / lambd a [...] gies. FINAL Marlene [facility], [address] [facility] [address] [id number] 0 04/18 Free kappa / lambd a with K/L ratio , serum K/L light chain ratio , free, serum 0.26 1.65 1.16% FINAL Marlene [facility] a [facility], [address] [facility] [address] [id number] 0 04/18 CBC w/ auto diff WBC K/uL 3.0 8.9 7.0 FINAL Marlene [facility] [place], [address] [facility] [address] [facility] [id number] 0 Phone: () - 04/18 CBC w/ auto diff HGB g/dL 11.3 15.2 14.0 FINAL Marlene [facility] - [place], [address] [place] [id number] 0 Phone: () - 04/18 CBC w/ auto diff PLT K/uL 113.0 364.0 164 FINAL Marlene Rubi [facility] - [place], [address] [place] [id number] 0 Phone: () - 04/18 CBC w/ auto diff Tammy # (ANC) K/uL 1.6 6.6 4.5 FINAL Marlene [facility] - [place], [address] [place] [id number] 0 Phone: () - 04/18 CBC w/ auto diff Tammy % % 43.0 74.0 64.0 FINAL Marlene Ramirez [facility] [place], [address] [place] [id number] 0 Phone: () - 04/18 CBC w/ auto diff IG % % 0.0 0.5 0.3 FINAL Marlene Ramirez [facility] [place], [address] [place] [id number] 0 Phone: () - 04/18 CBC w/ auto diff IG # K/uL 0.0 0.03 0.02 FINAL Marlene Ramirez [facility] [place], [address] [place] [id number] 0 Phone: () - 04/18 CBC w/ auto diff LY % % 14.0 41.0 28.2 FINAL Marlene Guzmán [facility] [place], [address] [place] [id number] 0 Phone: () - 04/18 CBC w/ auto diff MO % % 6.0 15.0 6.0 FINAL Marlene Guzmán [facility] [place], [address] [place] [id number] 0 Phone: () - 04/18 CBC w/ auto diff EO % % 0.0 7.0 1.1 FINAL Marlene Ramirez [facility] [place], [address] [place] [id number] 0 Phone: () - 04/18 CBC w/ auto diff BA % % 0.0 2.0 0.4 FINAL Marlene [facility] [place], [address] [place] [id number] 0 Phone: () - 04/18 CBC w/ auto diff LY # K/uL 0.4 3.6 2.0 FINAL Marlene [facility] - [place], [address] [place] [id number] 0 Phone: () - 04/18 CBC w/ auto diff MO # K/uL 0.2 1.3 0.4 FINAL Marlene [facility] - [place], [address] [place] [id number] 0 Phone: () - 04/18 CBC w/ auto diff EO # K/uL 0.0 0.6 0.1 FINAL Marlene [facility] - [place], [address] [place] [id number] 0 Phone: () - 04/18 CBC w/ auto diff BA # K/uL 0.0 0.2 0.0 FINAL Marlene [facility] - [place], [address] [place] [id number] 0 Phone: () - 04/18 CBC w/ auto diff NRBC % #/100W BC 0.0 0.2 0.0 FINAL Marlene [facility] - [place], [address] [place] [id number] 0 Phone: () - 04/18 CBC w/ auto diff RBC M/uL 3.9 5.1 4.84 FINAL Marlene [facility] [place], [address] [place] [id number] 0 Phone: () - 04/18 CBC w/ auto diff HCT % 35.0 48.0 40.4 FINAL Marlene Guzmán [facility] [place], [address] [place] [id number] 0 Phone: () - 04/18 CBC w/ auto diff MCV fL 80.0 104.0 83.5 FINAL Marlene Guzmán [facility] [place], [address] [place] [id number] 0 Phone: () - 04/18 CBC w/ auto diff MCH pg 26.0 35.0 28.9 FINAL Marlene Guzmán [facility] [place], [address] [place] [id number] 0 Phone: () - 04/18 CBC w/ auto diff MCHC g/dL 30.0 35.0 34.7 FINAL Marlene Guzmán [facility] [place], [address] [place] [id number] 0 Phone: () - 04/18 CBC w/ auto diff MPV fL 9.5 13.4 9.7 FINAL Marlene Guzmán [facility] [place], [address] [place] [id number] 0 Phone: () - 04/18 CBC w/ auto diff RDW % 11.4 16.1 13.80 FINAL Marlene Guzmán [facility] [place], [address] [place] [id number] 0 Phone: () - 04/18 CMP Album in g/dL 3.5 5.0 4.0 FINAL Marlene Guzmán * [facility] [place], [address] [place] [id number] 0 04/18 CMP Alkal ine phosp hatas e U/L 36.0 125.0 105 FINAL Marlene Guzmán * [facility] [place], [address] [place] [id number] 0 04/18 CMP ALT/S GPT U/L 0.0 34.0 35 High FINAL Marlene Guzmán * [facility], [address] [facility] [address] [id number] 0 04/18 CMP AST/S GOT U/L 14.0 36.0 44 High FINAL Marlene Guzmán * [facility], [address] [facility] [address] [id number] 0 04/18 CMP BUN mg/dL 7.0 17.0 21.0 High FINAL Marlene Guzmán * [facility], [address] [facility] [address] [id number] 0 04/18 CMP Calci um mg/dL 8.4 10.2 8.8 FINAL Marlene Guzmán * [facility], [address] [facility] [address] [id number] 0 04/18 CMP Chlor nilson mmol/L 96.0 107.0 106 FINAL Marlene Guzmán * [facility], [address] [facility] [address] [id number] 0 04/18 CMP CO2 mmol/L 22.0 30.0 [...] hour stability window. FINAL Marlene Guzmán * [facility], [address] [facility] [address] [id number] 0 04/18 CMP Creat inine mg/dL 0.66 1.25 0.70 FINAL Marlene Guzmán * [facility], [address] [facility] [id number] 0 04/18 CMP GFR estim ate ml/min /1.73m ^2 97.7 GFR is calculate d using the CKD-EPI equation. FINAL Marlene Guzmán * [facility], [address] [facility] [id number] 0 04/18 CMP Gluco se mg/dL 74.0 100.0 267 High FINAL Marlene Guzmán * [facility], [address] [facility] [id number] 0 04/18 CMP Potas sium mmol/L 3.5 5.1 4.0 FINAL Marlene Guzmán * [facility], [address] [facility] [id number] 0 04/18 CMP Sodiu m mmol/L 137.0 145.0 136 Low FINAL Marlene Guzmán * Jannot a [facility], [address] [facility] [id number] 0 04/18 CMP Bilir ubin, total mg/dL 0.2 1.3 1.0 FINAL Marlene Guzmán * [facility], [address] [facility] [id number] 0 04/18 CMP Total prote in g/dL 6.3 8.2 7.3 FINAL Marlene Guzmán * [facility]annot a [facility], [address] [facility] [id number] 04/18 [facility] other lab See occupational medicine officer d 12/20 [facility] other lab See occupational medicine officer d 12/20 Misc other lab See occupational medicine officer d 03/09 Free kappa / lambd a with K/L ratio , serum Manzanita light chain , free, serum , mg/dL mg/dL 0.33 1.94 4.35 High Test performed at [facility] on a Binding Site Optilite Analyzer that uses a turbidime tric method for analysis. Patient testing should not be performed using multiple methodolo gies due to analytica l variation seen between test methodolo gies. FINAL Marlene Guzmán * [facility] , [address] [facility] [address] [facility] [id number] 0 03/09 Free kappa / lambd a [...] test methodolo gies. FINAL Marlene Guzmán * [facility] , [address] [facility] [address] [id number] 0 03/09 Free kappa / lambd a with K/L ratio , serum K/L light chain ratio , free, serum 0.26 1.65 1.14% FINAL Marlene Guzmán * [facility] , [address] [facility] [address] [id number] 0 03/09 CMP Album in g/dL 3.5 5.0 3.8 FINAL Marlene Guzmán * [facility] , [address] [facility] [address] [id number] 0 03/09 CMP Alkal ine phosp hatas e U/L 36.0 125.0 106 FINAL Marlene Guzmán * [facility] , [address] [facility] [address] [id number] 0 03/09 CMP ALT/S GPT U/L 0.0 34.0 37 High FINAL Marlene Guzmán * [facility] , [address] [facility] [address] [id number] 0 03/09 CMP AST/S GOT U/L 14.0 36.0 36 FINAL Marlene Ramirez * [facility] , [address] [facility] [address] [facility] [id number] 0 03/09 CMP BUN mg/dL 7.0 17.0 18.0 High FINAL Marlene Guzmán * [facility] , [address] [facility] [address] [facility] [id number] 0 03/09 CMP Calci um mg/dL 8.4 10.2 8.9 FINAL Marlene Guzmán * [facility] , [address] [facility] [address] [facility] [id number] 0 03/09 CMP Chlor nilson mmol/L 96.0 107.0 99 FINAL Marlene Guzmán * [facility] , [address] [facility] [address] [facility] [id number] 0 03/09 CMP CO2 mmol/L 22.0 30.0 [...] hour stability window. FINAL Marlene Guzmán * [facility] , [address] [facility] [address] [facility] [id number] 0 03/09 CMP Creat inine mg/dL 0.66 1.25 0.70 FINAL Marlene Guzmán * [facility] , [address] [facility] [address] [facility] [id number] 0 03/09 CMP GFR estim ate ml/min /1.73m ^2 97.1 GFR is calculate d using the CKD-EPI equation. FINAL Marlene Guzmán * [facility] , [address] [facility] [address] [id number] 0 03/09 CMP Gluco se mg/dL 74.0 100.0 363 Criti sami High FINAL Marlene Guzmán * [facility] , [address] [facility] [address] [facility] [id number] 0 03/09 CMP Potas sium mmol/L 3.5 5.1 3.9 FINAL Marlene Guzmán * [facility] , [address] [facility] [address] [facility] [id number] 0 03/09 CMP Sodiu m mmol/L 137.0 145.0 134 Low FINAL Marlene Guzmán * [facility] , [address] [facility] [address] [facility] [id number] 0 03/09 CMP Bilir ubin, total mg/dL 0.2 1.3 1.1 FINAL Marlene Guzmán * [facility] , [address] [facility] [address] [facility] [id number] 0 03/09 CMP Total prote in g/dL 6.3 8.2 7.3 FINAL Marlene Guzmán * [facility] , [address] [facility] [address] [facility] [id number] 0 03/09 CBC w/ auto diff WBC K/uL 3.0 8.9 7.1 FINAL Marlene Guzmán [place] [facility] [place] [facility] , [address] [place] [id number] 0 03/09 CBC w/ auto diff HGB g/dL 11.3 15.2 14.4 FINAL Marlene Guzmán [place] [facility] [place] [facility] , [address] [place] [id number] 0 03/09 CBC w/ auto diff PLT K/uL 113.0 364.0 179 FINAL Marlene Guzmán [place] [facility] [place] [facility] , [address] [place] [id number] 0 03/09 CBC w/ auto diff Tammy # (ANC) K/uL 1.6 6.6 4.7 FINAL Marlene Guzmán [place] [facility] [place] [facility] , [address] [place] [id number] 0 03/09 CBC w/ auto diff Tammy % % 43.0 74.0 65.7 FINAL Marlene Guzmán [place] [facility] [place] [facility] , [address] [place] [id number] 0 03/09 CBC w/ auto diff IG % % 0.0 0.5 0.6 High FINAL Marlene Guzmán [place] [facility] [place] [facility] , [address] [place] [id number] 0 03/09 CBC w/ auto diff IG # K/uL 0.0 0.03 0.04 High FINAL Marlene Guzmán [place] [facility] [place] [facility] , [address] [place] [id number] 0 03/09 CBC w/ auto diff LY % % 14.0 41.0 25.8 FINAL Marlene Guzmán [place] [facility] , [address] [place] [id number] 0 03/09 CBC w/ auto diff MO % % 6.0 15.0 6.2 FINAL Marlene Guzmán [place] [facility] , [address] [place] [id number] 0 03/09 CBC w/ auto diff EO % % 0.0 7.0 1.1 FINAL Marlene Guzmán [place] [facility] , [address] [place] [id number] 0 03/09 CBC w/ auto diff BA % % 0.0 2.0 0.6 FINAL Marlene Guzmán [place] [facility] , [address] [place] [id number] 0 03/09 CBC w/ auto diff LY # K/uL 0.4 3.6 1.8 FINAL Marlene Guzmán [place] [facility] [place] [facility] , [address] [place] [id number] 0 03/09 CBC w/ auto diff MO # K/uL 0.2 1.3 0.4 FINAL Marlene Guzmán [place] [facility] [place] [facility] , [address] [place] [id number] 0 03/09 CBC w/ auto diff EO # K/uL 0.0 0.6 0.1 FINAL Marlene Guzmán [place] [facility] [place] [facility] , [address] [place] [id number] 0 03/09 CBC w/ auto diff BA # K/uL 0.0 0.2 0.0 FINAL Marlene Guzmán [place] [facility] [place] [facility] , [address] [place] [id number] 0 03/09 CBC w/ auto diff NRBC % #/100W BC 0.0 0.2 0.0 FINAL Marlene Guzmán [place] [facility] [place] [facility] , [address] [place] [id number] 0 03/09 CBC w/ auto diff RBC M/uL 3.9 5.1 5.08 FINAL Marlene Guzmán [place] [facility] [place] [facility] , [address] [place] [id number] 0 03/09 CBC w/ auto diff HCT % 35.0 48.0 42.9 FINAL Marlene Guzmán [facility] , [address] [place] [facility] [id number] 0 03/09 CBC w/ auto diff MCV fL 80.0 104.0 84.4 FINAL Marlene Guzmán [facility] , [address] [place] [facility] [id number] 0 03/09 CBC w/ auto diff MCH pg 26.0 35.0 28.3 FINAL Marlene Guzmán [facility] , [address] [facility] [address] [facility] [id number] 0 03/09 CBC w/ auto diff MCHC g/dL 30.0 35.0 33.6 FINAL Marlene Guzmán [facility] , [address] [facility] [id number] 0 03/09 CBC w/ auto diff MPV fL 9.5 13.4 9.6 FINAL Marlene Guzmán [facility] , [address] [facility] [id number] 0 03/09 CBC w/ auto diff RDW % 11.4 16.1 14.20 FINAL Marlene Guzmán [facility] On[facility] , [address] [facility] [id number] 0 03/09 Immun oglob ulin measu remen t IgG, quant mg/dL 610.0 1616.0 1080.49 Test performed at [facility] on a Binding Site Optilite Analyzer that uses a turbidime tric method for analysis. Patient testing should not be performed using multiple methodreal rocha due to analytica l variation seen between test methodreal rocha. FINAL Marlene Guzmán * [facility] , [address] [facility] [id number] 0 03/09 Immun oglob ulin measu remen t IgA, quant mg/dL 61.0 348.0 577.26 High Test performed at [facility] on a Binding Site Optilite Analyzer that uses a turbidime tric method for analysis. Patient testing should not be performed using multiple methodolo gies due to analytica l variation seen between test methodolo gies. FINAL Marlene Guzmán * [facility] , [facility] [address] [id number] 0 03/09 Immun oglob ulin measu remen t IgM, quant mg/dL 35.0 242.0 91.00 Test performed at [facility] on a Binding Site Optilite Analyzer that uses a turbidime tric method for analysis. Patient testing should not be performed using multiple methodolo gies due to analytica l variation seen between test methodolo gies. FINAL Marlene Guzmán * [facility] , [facility] [address] [id number] 0 03/09 Total prote in g/dL 6.3 8.2 7.1 FINAL Marlene Guzmán * [facility] , [facility] [address] [place] [address] [id number] 0 03/09 Album in, SPE g/dL 3.31 5.31 4.70 FINAL Marlene Guzmán * [facility] , [facility] [address] [id number] 0 03/09 Alpha -1 globu tony g/dL 0.19 0.42 0.23 FINAL Marlene Guzmán * [facility] , [facility] [address] [id number] 0 03/09 Alpha -2 globu tony g/dL 0.44 1.03 0.52 FINAL Marlene Guzmán * [facility] , [facility] [address] [id number] 0 03/09 Beta globu tony g/dL 0.52 1.05 0.80 FINAL Marlene Guzmán * [facility] , [address] [facility] [address] [id number] 0 03/09 Gamma globu tony g/dL 0.59 1.46 0.85 FINAL Marlene Guzmán * [facility] , [address] [facility] [address] [id number] 03/09 Elect Gemma layton in Lab resul t note Previou sly identif ied parapro teins detecte d in gamma region. Is now 0.3 and 0.4 gm/dL. Interpr eted and signed by Luis Guillermo MD on 025 FINAL Marlene Guzmán * [facility] , [facility] [address] [id number] 0 03/09 M-spi ke, SPE, g/dL g/dL 0.0 0.0 0.3 High FINAL Marlene Guzmán * [facility] , [address] [facility] [address] [id number] 0 03/09 M-spi ke 2, SPE g/dL 0.0 0.0 0.4 High FINAL Marlene Guzmán * [facility] , [address] [facility] [address] [id number] 0 04/03 Misc other lab See occupational medicine officer d Medications Date Name Route Dose Frequency [...] 70 04/10/2025 BMI 53.23 Notes Section * ERADICATOR Follow-Up GYNECOLOGIC ONCOLOGY FOLLOW-UP VISIT Patient Name: JOSE ANGEL CH : 1960 Date of Visit: 11/23/2023 Referring Provider: Malissa Hernandez MD (BANQU[facility] MANAGER) Attending: Marlene Guzmán (Hematology/Oncology) Chief Complaint (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 History of Present Illness ([facility]): 63 y.o.?? 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 Genetic Testing ([facility]): Interval History ([facility]) She is crying??when I walk in [...] Hysteroscopy with myosure, D & C 06/28/23 practice physician History: - 3 , 1 SAb Allergies: [...] 50 mg tablet daily 75 mg * [place] (Hydrocodone-Acetaminophen Oral 5 mg-325 mg) 5-325 mg [...] BSA: 2.37, BMI: 48.36 kg/m2 Physical Exam ([facility]): General:?? Anxious, , female tearful??throughout visit. [...] record:05/23/2019 Last record:05/23/2019; ) Assessment & Plan ([facility]): 63?? y.o. with abnormal uterine bleeding/PMB [...]
--- OUTSIDE RECORDS SUMMARY | 2025-07-06 23:24 | XMS_ITS ---
Author Name Interface, [id number] lity Address [address] [facility] [address] [place] [address] [facility] Oncology Address [address] [facility] [address] [place] [address] Support Name Relationship Address Phone Greg Ch [...] FINAL [facility] [place], [address] [place] [address] 210 [facility] [id number] [phone] Phone: () - 11/22 Appea ying (ua) Clear FINAL [facility] [place], [address] [place] [address] 210 [facility] [phone] 0 Phone: () - 11/22 Gluco se (ua), qual 500.0% Abnor mal FINAL [facility] [place], [address] [facility] 210 [facility] [phone] 0 Phone: () - 11/22 Bilir ubin (ua) Negativ e FINAL [facility] [place], [address] [place] [address] 210 [facility] [phone] 0 Phone: () - 11/22 Urina lysis , aceto ne or keton e chapo s measu remen t Negativ e FINAL [facility] [place], [address] [facility] 210 [place] [phone] 0 Phone: () - 11/22 Speci fic gravi ty (ua) 1.005 1.02 1.025% Abnor mal FINAL [facility] [place], [address] [facility] 210 [place] [phone] 0 Phone: () - 11/22 Blood (ua) Negativ e FINAL [facility] [place], [address] [place] [address] 210 [place] [phone] 0 Phone: () - 11/22 pH (ua) 5.0 8.0 6.0% FINAL [facility] [place], [address] [place] [address] 210 [facility] [id number] 0 Phone: () - 11/22 Prote in (ua) Negativ e FINAL [facility] [place], [address] [place] [address] 210 [place] [phone] 0 Phone: () - 11/22 Urobi linog en (ua) 0.2 1.0 0.2% FINAL [facility] [place], [address] [place] [address] 210 [place] [phone] 0 Phone: () - 11/22 Nitri te (ua) Negativ e FINAL [facility] [place], [address] [place] [address] 210 [place] [phone] 0 Phone: () - 11/22 Leuko cyte jerson ase (ua), qual Negativ e FINAL [facility] [place], [address] [place] [address] 210 [place] [phone] 0 Phone: () - 11/22 UA comme nt 1 Dipstic k negativ e- Culture ordered per provide r FINAL [facility] [place], [address] [place] [address] 210 [place] [phone] 0 Phone: () - 11/22 Urine cultu re panel CULTU RE, URINE , ROUTI NE SEE NOTE 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 FINAL Hafsa Bud [facility], [facility] [address] [facility] [id number] 4 12/18 [facility] [place] lab See [employer] 04/18 Total prote in g/dL 6.3 8.2 6.9 FINAL Marlene Guzmán * [facility], [address] [facility] [address] [place] [address] [id number] 04/18 Album in, SPE g/dL 3.31 5.31 3.97 FINAL Marlene Guzmán * [facility], [facility] [address] [place] [address] [id number] 0 04/18 Alpha -1 globu tony g/dL 0.19 0.42 0.26 FINAL Marlene Guzmán * [facility], [facility] [address] [place] [address] [id number] 04/18 Alpha -2 globu tony g/dL 0.44 1.03 0.63 FINAL Marlene Guzmán * [facility] [address] [place] [address] [id number] 0 04/18 Beta globu tony g/dL 0.52 1.05 0.95 FINAL Marlene Guzmán * [facility], [address] [facility] [address] [place] [address] [id number] 0 04/18 Gamma globu tony g/dL 0.59 1.46 1.10 FINAL Marlene Guzmán * [facility], [address] [facility] [address] [place] [address] [id number] 0 04/18 Elect Gemma layton in Lab resul t note Previou sly identif ied parapro teins detecte d in gamma region. Were 0.3 and 0.4 gm/dL, now 0.3 and 0.3 gm/dL. Interpr eted and signed by Adrienne Swanson MD on 024 FINAL Marlene Guzmán * [facility], [facility] [address] [place] [address] [id number] 0 04/18 M-spi ke, SPE, g/dL g/dL 0.0 0.0 0.3 High FINAL Marleneanabel Guzmán * [facility], [address] [facility] [id number] 0 04/18 M-spi ke 2, SPE g/dL 0.0 0.0 0.3 High FINAL Marlene Guzmán * [facility], [address] [facility] [address] [facility] [id number] 0 04/18 Immun oglob ulin measu remen t IgG, quant mg/dL 610.0 1616.0 946.67 Test performed at [facility] on a Binding Site Optilite Analyzer that uses a turbidime tric method for analysis. Patient testing should not be performed using multiple methodolo gies due to analytica l variation seen between test methodolo gies. FINAL Marlene Guzmán * [facility], [address] [id number] 0 04/18 Immun oglob ulin measu remen t IgA, quant mg/dL 61.0 348.0 493.08 High Test performed at [facility] on a Binding Site Optilite Analyzer that uses a turbidime tric method for analysis. Patient testing should not be performed using multiple methodolo gies due to analytica l variation seen between test methodolo gies. FINAL Marlene Guzmán * [facility], [address] [id number] 0 04/18 Immun oglob ulin measu remen t IgM, quant mg/dL 35.0 242.0 75.62 Test performed at [facility] on a Binding Site Optilite Analyzer that uses a turbidime tric method for analysis. Patient testing should not be performed using multiple methodolo gies due to analytica l variation seen between test methodolo gies. FINAL Marlene Guzmán * [facility], [address] [id number] 0 04/18 Free kappa / lambd a with K/L ratio , serum [place] light chain , free, serum , mg/dL mg/dL 0.33 1.94 3.62 High Test performed at [facility] on a Binding Site Optilite Analyzer that uses a turbidime tric method for analysis. Patient testing should not be performed using multiple methodolo gies due to analytica l variation seen between test methodolo gies. FINAL Marlene Stroud [facility], [address] [id number] 0 04/18 Free kappa / lambd a with K/L ratio , serum Lamb[place] light chain , free, serum , mg/dL mg/dL 0.57 2.63 3.13 High Test performed at [facility] on a Binding Site Optilite Analyzer that uses a turbidime tric method for analysis. Patient testing should not be performed using multiple methodolo gies due to analytica l variation seen between test methodolo gies. FINAL Marlene [facility], [address] [facility] [address] [id number] 0 04/18 Free kappa / lambd a with K/L ratio , serum K/L light chain ratio , free, serum 0.26 1.65 1.16% FINAL Marlene [facility], [address] [facility] [address] [id number] 0 04/18 CBC w/ auto diff WBC K/uL 3.0 8.9 7.0 FINAL Marlene [facility] [place], [address] [facility] [address] [facility] [id number] 0 Phone: () - 04/18 CBC w/ auto diff HGB g/dL 11.3 15.2 14.0 FINAL Marlene pagan [facility] - [place], [address] [place] [id number] 0 Phone: () - 04/18 CBC w/ auto diff PLT K/uL 113.0 364.0 164 FINAL Marlene Rubi [facility] - [place], [address] [place] [id number] 0 Phone: () - 04/18 CBC w/ auto diff Tammy # (ANC) K/uL 1.6 6.6 4.5 FINAL Marlene [facility] - [place], [address] [place] [id number] 0 Phone: () - 04/18 CBC w/ auto diff Tammy % % 43.0 74.0 64.0 FINAL Marlene Ramirez [facility] [place], [address] [place] [id number] 0 Phone: () - 04/18 CBC w/ auto diff IG % % 0.0 0.5 0.3 FINAL Marlene Ramirez [facility] [place], [address] [place] [id number] 0 Phone: () - 04/18 CBC w/ auto diff IG # K/uL 0.0 0.03 0.02 FINAL Marlene Ramirez [facility] [place], [address] [place] [id number] 0 Phone: () - 04/18 CBC w/ auto diff LY % % 14.0 41.0 28.2 FINAL Marlene Guzmán [facility] [place], [address] [place] [id number] 0 Phone: () - 04/18 CBC w/ auto diff MO % % 6.0 15.0 6.0 FINAL Marlene Guzmán [facility] [place], [address] [place] [id number] 0 Phone: () - 04/18 CBC w/ auto diff EO % % 0.0 7.0 1.1 FINAL Marlene Ramirez [facility] [place], [address] [place] [id number] 0 Phone: () - 04/18 CBC w/ auto diff BA % % 0.0 2.0 0.4 FINAL Marlene [facility] [place], [address] [place] [id number] 0 Phone: () - 04/18 CBC w/ auto diff LY # K/uL 0.4 3.6 2.0 FINAL Marlene Rubi [facility] - [place], [address] [place] [id number] 0 Phone: () - 04/18 CBC w/ auto diff MO # K/uL 0.2 1.3 0.4 FINAL Marlene Rubi [facility] - [place], [address] [place] [id number] 0 Phone: () - 04/18 CBC w/ auto diff EO # K/uL 0.0 0.6 0.1 FINAL Marlene Rubi a [facility] - [place], [address] [place] [id number] 0 Phone: () - 04/18 CBC w/ auto diff BA # K/uL 0.0 0.2 0.0 FINAL Marlene Rubi a [facility] - [place], [address] [place] [id number] 0 Phone: () - 04/18 CBC w/ auto diff NRBC % #/100W BC 0.0 0.2 0.0 FINAL Marlene Rubi [facility] - [place], [address] [place] [id number] 0 Phone: () - 04/18 CBC w/ auto diff RBC M/uL 3.9 5.1 4.84 FINAL Marlene [facility] [place], [address] [place] [id number] 0 Phone: () - 04/18 CBC w/ auto diff HCT % 35.0 48.0 40.4 FINAL Marlene Guzmán [facility] [place], [address] [place] [id number] 0 Phone: () - 04/18 CBC w/ auto diff MCV fL 80.0 104.0 83.5 FINAL Marlene Guzmán [facility] [place], [address] [place] [id number] 0 Phone: () - 04/18 CBC w/ auto diff MCH pg 26.0 35.0 28.9 FINAL Marlene Guzmán [facility] [place], [address] [place] [id number] 0 Phone: () - 04/18 CBC w/ auto diff MCHC g/dL 30.0 35.0 34.7 FINAL Marlene Guzmán [facility] [place], [address] [place] [id number] 0 Phone: () - 04/18 CBC w/ auto diff MPV fL 9.5 13.4 9.7 FINAL Marlene Guzmán [facility] [place], [address] [place] [id number] 0 Phone: () - 04/18 CBC w/ auto diff RDW % 11.4 16.1 13.80 FINAL Marlene Guzmán [facility] [place], [address] [place] [id number] 0 Phone: () - 04/18 CMP Album in g/dL 3.5 5.0 4.0 FINAL Marlene Guzmán * [facility] [place], [address] [place] [id number] 0 04/18 CMP Alkal ine phosp hatas e U/L 36.0 125.0 105 FINAL Marlene Guzmán * [facility] [place], [address] [place] [id number] 0 04/18 CMP ALT/S GPT U/L 0.0 34.0 35 High FINAL Marlene Guzmán * [facility], [address] [facility] [address] [id number] 0 04/18 CMP AST/S GOT U/L 14.0 36.0 44 High FINAL Marlene Guzmán * [facility], [address] [facility] [address] [id number] 0 04/18 CMP BUN mg/dL 7.0 17.0 21.0 High FINAL Marlene Guzmán * [facility], [address] [facility] [address] [id number] 0 04/18 CMP Calci um mg/dL 8.4 10.2 8.8 FINAL Marlene Guzmán * [facility], [address] [facility] [address] [id number] 0 04/18 CMP Chlor nilson mmol/L 96.0 107.0 106 FINAL Marlene Guzmán * [facility], [address] [facility] [address] [id number] 0 04/18 CMP CO2 mmol/L 22.0 30.0 [...] hour stability window. FINAL Marlene Guzmán * [facility], [address] [facility] [address] [id number] 0 04/18 CMP Creat inine mg/dL 0.66 1.25 0.70 FINAL Marlene Guzmán * [facility], [address] [facility] [id number] 0 04/18 CMP GFR estim ate ml/min /1.73m ^2 97.7 GFR is calculate d using the CKD-EPI equation. FINAL Marlene Guzmán * [facility], [address] [facility] [id number] 0 04/18 CMP Gluco se mg/dL 74.0 100.0 267 High FINAL Marlene Guzmán * [facility], [address] [facility] [id number] 04/18 CMP Potas sium mmol/L 3.5 5.1 4.0 FINAL Marlene Guzmán * [facility], [address] [facility] [id number] 0 04/18 CMP Sodiu m mmol/L 137.0 145.0 136 Low FINAL Marlene Guzmán * [facility], [address] [facility] [id number] 0 04/18 CMP Bilir ubin, total mg/dL 0.2 1.3 1.0 FINAL Marlene Guzmán * [facility], [address] [facility] [id number] 0 04/18 CMP Total prote in g/dL 6.3 8.2 7.3 FINAL Marlene Guzmán * [facility], [address] [facility] [id number] 0 04/18 [facility] [place] See [employer] 12/20 [facility] [place] lab See [employer] 12/20 Misc other lab See [employer] 03/09 Free kappa / lambd a with K/L ratio , serum [place] light chain , free, serum , mg/dL mg/dL 0.33 1.94 4.35 High Test performed at [facility] on a Binding Site Optilite Analyzer that uses a turbidime tric method for analysis. Patient testing should not be performed using multiple methodolo gies due to analytica l variation seen between test methodolo gies. FINAL Marlene Guzmán * [facility] , [address] [facility] [address] [facility] [id number] 0 03/09 Free kappa / lambd a with K/L ratio , serum Lamb[place] light chain , free, serum , mg/dL mg/dL 0.57 2.63 3.83 High Test performed at [facility] on a Binding Site Optilite Analyzer that uses a turbidime tric method for analysis. Patient testing should not be performed using multiple methodolo gies due to analytica l variation seen between test methodolo gies. FINAL Marlene Guzmán * [facility] , [address] [facility] [address] [id number] 0 03/09 Free kappa / lambd a with K/L ratio , serum K/L light chain ratio , free, serum 0.26 1.65 1.14% FINAL Marlene Guzmán * [facility] , [address] [facility] [address] [id number] 0 03/09 CMP Album in g/dL 3.5 5.0 3.8 FINAL Marlene Guzmán * [facility] , [address] [facility] [address] [id number] 0 03/09 CMP Alkal ine phosp hatas e U/L 36.0 125.0 106 FINAL Marlene Guzmán * [facility] , [address] [facility] [address] [id number] 0 03/09 CMP ALT/S GPT U/L 0.0 34.0 37 High FINAL Marlene Guzmán * [facility] , [address] [facility] [address] [id number] 0 03/09 CMP AST/S GOT U/L 14.0 36.0 36 FINAL Marlene Ramirez * [facility] , [address] [facility] [address] [facility] [id number] 0 03/09 CMP BUN mg/dL 7.0 17.0 18.0 High FINAL Marlene Guzmán * [facility] , [address] [facility] [address] [facility] [id number] 0 03/09 CMP Calci um mg/dL 8.4 10.2 8.9 FINAL Marlene Guzmán * [facility] , [address] [facility] [address] [facility] [id number] 0 03/09 CMP Chlor nilson mmol/L 96.0 107.0 99 FINAL Marlene Guzmán * [facility] , [address] [facility] [address] [facility] [id number] 0 03/09 CMP CO2 mmol/L 22.0 30.0 [...] hour stability window. FINAL Marlene Guzmán * [facility] , [address] [facility] [address] [facility] [id number] 0 03/09 CMP Creat inine mg/dL 0.66 1.25 0.70 FINAL Marlene Guzmán * [facility] , [address] [facility] [address] [facility] [id number] 0 03/09 CMP GFR estim ate ml/min /1.73m ^2 97.1 GFR is calculate d using the CKD-EPI equation. FINAL Marlene Guzmán * [facility] , [address] [facility] [address] [id number] 0 03/09 CMP Gluco se mg/dL 74.0 100.0 363 Criti sami High FINAL Marlene Guzmán * [facility] , [address] [facility] [address] [facility] [id number] 0 03/09 CMP Potas sium mmol/L 3.5 5.1 3.9 FINAL Marlene Guzmán * [facility] , [address] [facility] [address] [facility] [id number] 0 03/09 CMP Sodiu m mmol/L 137.0 145.0 134 Low FINAL Marlene Gumzán * [facility] , [address] [facility] [address] [facility] [id number] 0 03/09 CMP Bilir ubin, total mg/dL 0.2 1.3 1.1 FINAL Marlene Guzmán * [facility] , [address] [facility] [address] [facility] [id number] 0 03/09 CMP Total prote in g/dL 6.3 8.2 7.3 FINAL Marlene Guzmán * [facility] , [address] [facility] [address] [facility] [id number] 0 03/09 CBC w/ auto diff WBC K/uL 3.0 8.9 7.1 FINAL Marlene Guzmán [place] [facility] [place] [facility] , [address] [place] [id number] 0 03/09 CBC w/ auto diff HGB g/dL 11.3 15.2 14.4 FINAL Marlene Guzmán [place] [facility] [place] [facility] , [address] [place] [id number] 0 03/09 CBC w/ auto diff PLT K/uL 113.0 364.0 179 FINAL Marlene Guzmán [place] [facility] [place] [facility] , [address] [place] [id number] 0 03/09 CBC w/ auto diff Tammy # (ANC) K/uL 1.6 6.6 4.7 FINAL Marlene Guzmán [place] [facility] [place] [facility] , [address] [place] [id number] 0 03/09 CBC w/ auto diff Tammy % % 43.0 74.0 65.7 FINAL Marlene Guzmán [place] [facility] [place] [facility] , [address] [place] [id number] 0 03/09 CBC w/ auto diff IG % % 0.0 0.5 0.6 High FINAL Marlene Guzmán [place] [facility] [place] [facility] , [address] [place] [id number] 0 03/09 CBC w/ auto diff IG # K/uL 0.0 0.03 0.04 High FINAL Marlene Guzmán [place] [facility] [place] [facility] , [address] [place] [id number] 0 03/09 CBC w/ auto diff LY % % 14.0 41.0 25.8 FINAL Marlene Guzmán [place] [facility] [place] [facility] , [address] [place] [id number] 0 03/09 CBC w/ auto diff MO % % 6.0 15.0 6.2 FINAL Marlene Guzmán [place] [facility] [place] [facility] , [address] [place] [id number] 0 03/09 CBC w/ auto diff EO % % 0.0 7.0 1.1 FINAL Marlene Guzmán [place] [facility] [place] [facility] , [address] [place] [id number] 0 03/09 CBC w/ auto diff BA % % 0.0 2.0 0.6 FINAL Marlene Guzmán [place] [facility] [place] [facility] , [address] [place] [id number] 0 03/09 CBC w/ auto diff LY # K/uL 0.4 3.6 1.8 FINAL Marelne Guzmán [place] [facility] [place] [facility] , [address] [place] [id number] 0 03/09 CBC w/ auto diff MO # K/uL 0.2 1.3 0.4 FINAL Marlene Guzmán [place] [facility] [place] [facility] , [address] [place] [id number] 0 03/09 CBC w/ auto diff EO # K/uL 0.0 0.6 0.1 FINAL Marlene Guzmán [place] [facility] [place] [facility] , [address] [place] [id number] 0 03/09 CBC w/ auto diff BA # K/uL 0.0 0.2 0.0 FINAL Marlene Guzmán [place] [facility] [place] [facility] , [address] [place] [id number] 0 03/09 CBC w/ auto diff NRBC % #/100W BC 0.0 0.2 0.0 FINAL Marlene Guzmán [place] [facility] [place] [facility] , [address] [place] [id number] 0 03/09 CBC w/ auto diff RBC M/uL 3.9 5.1 5.08 FINAL Marlene Guzmán [place] [facility] [place] [facility] , [address] [place] [id number] 0 03/09 CBC w/ auto diff HCT % 35.0 48.0 42.9 FINAL Marlene Guzmán [facility] , [address] [place] [facility] [id number] 0 03/09 CBC w/ auto diff MCV fL 80.0 104.0 84.4 FINAL Marlene Guzmán [facility] , [address] [facility] [address] [place] [facility] [id number] 0 03/09 CBC w/ auto diff MCH pg 26.0 35.0 28.3 FINAL Marlene Guzmán [facility] , [address] [facility] [address] [facility] [id number] 0 03/09 CBC w/ auto diff MCHC g/dL 30.0 35.0 33.6 FINAL Marlene Guzmán [facility] , [address] [facility] [address] [facility] [id number] 0 03/09 CBC w/ auto diff MPV fL 9.5 13.4 9.6 FINAL Marlene Guzmán [facility] , [address] [facility] [address] [facility] [id number] 0 03/09 CBC w/ auto diff RDW % 11.4 16.1 14.20 FINAL Marlene Guzmán [facility] , [address] [facility] [address] [facility] [id number] 0 03/09 Immun oglob ulin measu remen t IgG, quant mg/dL 610.0 1616.0 1080.49 Test performed at [facility] on a Binding Site Optilite Analyzer that uses a turbidime tric method for analysis. Patient testing should not be performed using multiple methodreal rocha due to analytica l variation seen between test methodreal rocha. FINAL Marlene Guzmán * [facility] , [address] [facility] [id number] 0 03/09 Immun oglob ulin measu remen t IgA, quant mg/dL 61.0 348.0 577.26 High Test performed at [facility] on a Binding Site Optilite Analyzer that uses a turbidime tric method for analysis. Patient testing should not be performed using multiple methodolo gies due to analytica l variation seen between test methodolo gies. FINAL Marlene Guzmán * [facility] , [facility] [address] [id number] 0 03/09 Immun oglob ulin measu remen t IgM, quant mg/dL 35.0 242.0 91.00 Test performed at [facility] on a Binding Site [employer] Analyzer that uses a turbidime tric method for analysis. Patient testing should not be performed using multiple methodolo gies due to analytica l variation seen between test methodolo gies. FINAL Marlene Guzmán * [facility] , [facility] [address] [id number] 0 03/09 Total prote in g/dL 6.3 8.2 7.1 FINAL Marlene Guzmán * [facility] , [facility] [address] [place] [address] [id number] 0 03/09 Album in, SPE g/dL 3.31 5.31 4.70 FINAL Marlene Guzmán * [facility] , [facility] [address] [id number] 0 03/09 Alpha -1 globu tony g/dL 0.19 0.42 0.23 FINAL Marlene Guzmán * [facility] , [facility] [address] [id number] 0 03/09 Alpha -2 globu tony g/dL 0.44 1.03 0.52 FINAL Marlene Guzmán * [facility] , [facility] [address] [id number] 0 03/09 Beta globu tony g/dL 0.52 1.05 0.80 FINAL Marlene Guzmán * [facility] , [address] [facility] [address] [id number] 0 03/09 Gamma globu tony g/dL 0.59 1.46 0.85 FINAL Marlene Guzmán * [facility] , [address] [facility] [address] [id number] 0 03/09 Elect Gemma layton in Lab resul t note Previou sly identif ied parapro teins detecte d in gamma region. Is now 0.3 and 0.4 gm/dL. Interpr eted and signed by Luis Guillermo MD on 025 FINAL Marlene Guzmán * [facility] , [facility] [address] [id number] 0 03/09 M-spi ke, SPE, g/dL g/dL 0.0 0.0 0.3 High FINAL Marlene Guzmán * [facility] , [address] [facility] [address] [id number] 0 03/09 M-spi ke 2, SPE g/dL 0.0 0.0 0.4 High FINAL Marlene Guzmán * [facility] , [address] [facility] [address] [id number] 0 04/03 Misc other lab See [employer] Medications Date Name Route Dose Frequency [...] 70 04/10/2025 BMI 53.23 Notes Section * [facility] Follow-Up GYNECOLOGIC ONCOLOGY FOLLOW-UP VISIT Patient Name: JOSE ANGEL CH : 1960 Date of Visit: 11/23/2023 Referring Provider: Malissa Hernandez MD ([employer]) Attending: Marlene Guzmán (Hematology/Oncology) Chief Complaint ([employer] 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 y.o. with abnormal uterine [...] none found; Vaping : none found Hafsa aFrrell APRN, CNP Copy to: ? Electronically signed by Hafsa Farrell APRN, CNP 11/23/2023 10:56 CDT
--- OUTSIDE RECORDS SUMMARY | 2025-07-06 23:25 | XMS_ITS ---
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 11/22 Color (ua) Yellow FINAL [facility] [place], [address] [facility] [address] [place] [phone] Phone: () - 11/22 Appea ying (ua) Clear FINAL [facility] [place], [address] [facility] [address] [place] [phone] 0 Phone: () - 11/22 Gluco se (ua), qual 500.0% Abnor mal FINAL [facility] [place], [address] [facility] [address] [place] [phone] 0 Phone: () - 11/22 Bilir ubin (ua) Negativ e FINAL [facility] [place], [address] [facility] [address] [place] [phone] 0 Phone: () - 11/22 Urina lysis , aceto ne or keton e chapo s measu remen t Negativ e FINAL [facility] [place], [address] [facility] [address] [place] [phone] 0 Phone: () - 11/22 Speci fic gravi ty (ua) 1.005 1.02 1.025% Abnor mal FINAL [facility] [place], [address] [facility] [address] [place] [id number] 0 Phone: () - 11/22 Blood (ua) Negativ e FINAL [facility] [place], [address] [facility] [address] [place] [phone] 0 Phone: () - 11/22 pH (ua) 5.0 8.0 6.0% FINAL [facility] [place], [address] [facility] [address] [place] [phone] 0 Phone: () - 11/22 Prote in (ua) Negativ e FINAL [facility] [place], [address] [place] [address] [address] [place] [phone] 0 Phone: () - 11/22 Urobi linog en (ua) 0.2 1.0 0.2% FINAL [facility] [place], [address] [place] [address] [address] [place] [phone] 0 Phone: () - 11/22 Nitri te (ua) Negativ e FINAL [facility] [place], [address] [facility] [address] [place] [phone] 0 Phone: () - 11/22 Leuko cyte jerson ase (ua), qual Negativ e FINAL [facility] [place], [address] [facility] [address] [place] [phone] 0 Phone: () - 11/22 UA comme nt 1 Dipstic k negativ e- Culture ordered per provide r FINAL [facility] [place], [address] [facility] [address] [facility] [phone] Phone: () - 11/22 Urine cultu re panel CULTU RE, URINE , ROUTI NE SEE NOTE Abnor mal CULTURE, URINE, ROUTINEMi [employer] dynamics consultant Number: [id number] est Status: FinalSpec imen Source: UrineSpec imen [...] f. 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 04/18 Total prote in g/dL 6.3 8.2 6.9 FINAL Marlene Ramirez * [facility], [address] [id number] 0 04/18 Album in, SPE g/dL 3.31 5.31 3.97 FINAL Marlene Guzmán * [facility], [address] [id number] 04/18 Alpha -1 globu tony g/dL 0.19 0.42 0.26 FINAL Marlene Guzmán * [facility], [address] [id number] 0 04/18 Alpha -2 globu tony g/dL 0.44 1.03 0.63 FINAL Marlene Guzmán * [facility], [address] [id number] 0 04/18 Beta globu tony g/dL 0.52 1.05 0.95 FINAL Marlene Ramirez * [facility], [address] [id number] 0 04/18 Gamma globu tony g/dL 0.59 1.46 1.10 FINAL Marlene Guzmán * [facility], [address] [id number] 0 04/18 Gemma Rodriguez in Lab resul t note Previou sly identif ied parapro teins detecte d in gamma region. Were 0.3 and 0.4 gm/dL, now 0.3 and 0.3 gm/dL. Interpr eted and signed by Adrienne Swanson MD on 024 FINAL Marlene Guzmán * [facility], [address] [facility] [address] [id number] 0 04/18 M-spi ke, SPE, g/dL g/dL 0.0 0.0 0.3 High FINAL Marlene Guzmán * [facility], [address] [facility] [address] [id number] 0 04/18 M-spi ke 2, SPE g/dL 0.0 0.0 0.3 High FINAL Marleneanabel Guzmán * [facility] [address] [place] [address] [id number] 0 04/18 Immun oglob ulin measu remen t IgG, quant mg/dL 610.0 1616.0 946.67 Test performed at [facility] on a Binding [employer] Optilite Analyzer that uses a turbidime tric method for analysis. Patient testing should not be performed using multiple methodolo gies due to analytica l variation seen between test methodolo gies. FINAL Marleneanabel Guzmán * [facility] [address] [place] [address] [id number] 0 04/18 Immun oglob ulin measu remen t IgA, quant mg/dL 61.0 348.0 493.08 High Test performed at [facility] on a Binding [employer] Optilite Analyzer that uses a turbidime tric method for analysis. Patient testing should not be performed using multiple methodolo gies due to analytica l variation seen between test methodolo gies. FINAL Marlene Guzmán * [facility], [address] [place] [address] [place] [address] [id number] 0 04/18 Immun oglob ulin measu remen t IgM, quant mg/dL 35.0 242.0 75.62 Test performed at [facility] on a Binding Site Optilite Analyzer that uses a turbidime tric method for analysis. Patient testing should not be performed using multiple methodolo gies due to analytica l variation seen between test methodolo gies. FINAL Marlene Forte a [facility], [facility] [address] [id number] 0 04/18 Free kappa / lambd a with K/L ratio , serum Burden light chain , free, serum , mg/dL mg/dL 0.33 1.94 3.62 High Test performed at [facility] on a Binding Site Optilite Analyzer that uses a turbidime tric method for analysis. Patient testing should not be performed using multiple methodolo gies due to analytica l variation seen between test methodolo gies. FINAL Marlene Rubi a [facility], [address] [facility] [address] [id number] 0 04/18 Free kappa / lambd a with K/L ratio , serum Lambd a light chain , free, serum , mg/dL mg/dL 0.57 2.63 3.13 High Test performed at [facility] on a Binding [employer] Optilite Analyzer that uses a turbidime tric method for analysis. Patient testing should not be performed using multiple methodolo gies due to analytica l variation seen between test methodolo gies. FINAL Marlene Rubi a [facility], [address] [id number] 0 04/18 Free kappa / lambd a with K/L ratio , serum K/L light chain ratio , free, serum 0.26 1.65 1.16% FINAL Marlene Forteot a [facility], [address] [id number] 0 04/18 CBC w/ auto diff WBC K/uL 3.0 8.9 7.0 FINAL Marlene Rubi Oncology [facility], [address] [facility] [address] [facility] [id number] 0 Phone: () - 04/18 CBC w/ auto diff HGB g/dL 11.3 15.2 14.0 FINAL Marlene [facility] [place], [address] [place] [id number] 0 Phone: () - 04/18 CBC w/ auto diff PLT K/uL 113.0 364.0 164 FINAL Marlene [facility] [place], [address] [place] [id number] 0 Phone: () - 04/18 CBC w/ auto diff Tammy # (ANC) K/uL 1.6 6.6 4.5 FINAL Marlene [facility] - [place], [address] [place] [id number] 0 Phone: () - 04/18 CBC w/ auto diff Tammy % % 43.0 74.0 64.0 FINAL Marlene [facility] - [place], [address] [place] [id number] 0 Phone: () - 04/18 CBC w/ auto diff IG % % 0.0 0.5 0.3 FINAL Marlene [facility] - [place], [address] [place] [id number] 0 Phone: () - 04/18 CBC w/ auto diff IG # K/uL 0.0 0.03 0.02 FINAL Marlene [facility] - [place], [address] [place] [id number] 0 Phone: () - 04/18 CBC w/ auto diff LY % % 14.0 41.0 28.2 FINAL Marlene Rubi a [facility] - [place], [address] [place] [id number] 0 Phone: () - 04/18 CBC w/ auto diff MO % % 6.0 15.0 6.0 FINAL Marlene Guzmán [facility] [place], [address] [place] [id number] 0 Phone: () - 04/18 CBC w/ auto diff EO % % 0.0 7.0 1.1 FINAL Marlene [facility] - [place], [address] [place] [id number] 0 Phone: () - 04/18 CBC w/ auto diff BA % % 0.0 2.0 0.4 FINAL Mar[facility] - [place], [address] [place] [id number] 0 Phone: () - 04/18 CBC w/ auto diff LY # K/uL 0.4 3.6 2.0 FINAL Marlene Guzmán [facility] [place], [address] [place] [id number] 0 Phone: () - 04/18 CBC w/ auto diff MO # K/uL 0.2 1.3 0.4 FINAL Marlene Ramirez [facility] [place], [address] [place] [id number] 0 Phone: () - 04/18 CBC w/ auto diff EO # K/uL 0.0 0.6 0.1 FINAL Marlene Ramirez [facility] [place], [address] [place] [id number] 0 Phone: () - 04/18 CBC w/ auto diff BA # K/uL 0.0 0.2 0.0 FINAL Marlene Ramirez [facility] [place], [address] [place] [id number] 0 Phone: () - 04/18 CBC w/ auto diff NRBC % #/100W BC 0.0 0.2 0.0 FINAL Marlene Guzmán [facility] [place], [address] [place] [id number] 0 Phone: () - 04/18 CBC w/ auto diff RBC M/uL 3.9 5.1 4.84 FINAL Marlene Guzmán [facility] [place], [address] [place] [id number] 0 Phone: () - 04/18 CBC w/ auto diff HCT % 35.0 48.0 40.4 FINAL Marlene Rubi a [facility] - [place], [address] [place] [id number] 0 Phone: () - 04/18 CBC w/ auto diff MCV fL 80.0 104.0 83.5 FINAL Marlene [facility] - [place], [address] [place] [id number] 0 Phone: () - 04/18 CBC w/ auto diff MCH pg 26.0 35.0 28.9 FINAL Marlene Rubi a [facility] - [place], [address] [place] [id number] 0 Phone: () - 04/18 CBC w/ auto diff MCHC g/dL 30.0 35.0 34.7 FINAL Marlene Rubi a [facility] - [place], [address] [place] [id number] 0 Phone: () - 04/18 CBC w/ auto diff MPV fL 9.5 13.4 9.7 FINAL Marlene Rubi a [facility] - [place], [address] [place] [id number] 0 Phone: () - 04/18 CBC w/ auto diff RDW % 11.4 16.1 13.80 FINAL Marlene Rubi a [facility] - [place], [address] [place] [id number] 0 Phone: () - 04/18 CMP Album in g/dL 3.5 5.0 4.0 FINAL Marlene Guzmán * [facility] [place], [address] [place] [id number] 0 04/18 CMP Alkal ine phosp hatas e U/L 36.0 125.0 105 FINAL Marlene Guzmán * [facility] [place], [address] [facility] [id number] 0 04/18 CMP ALT/S GPT U/L 0.0 34.0 35 High FINAL Marlene Guzmán * [facility], [address] [facility] [id number] 0 04/18 CMP AST/S GOT U/L 14.0 36.0 44 High FINAL Marlene Guzmán * [facility], [address] [facility] [id number] 0 04/18 CMP BUN mg/dL 7.0 17.0 21.0 High FINAL Marlene Guzmán * [facility], [address] [facility] [id number] 0 04/18 CMP Calci um mg/dL 8.4 10.2 8.8 FINAL Marlene Guzmán * [facility], [address] [facility] [id number] 0 04/18 CMP Chlor nilson mmol/L 96.0 107.0 106 FINAL Marlene Guzmán * [facility], [address] [facility] [id number] 0 04/18 CMP CO2 mmol/L 22.0 30.0 [...] window. FINAL Marlene Guzmán * [facility], [address] [facility] [id number] 0 04/18 CMP Creat inine mg/dL 0.66 1.25 0.70 FINAL Marlene Guzmán * [facility], [address] [facility] [address] [id number] 0 04/18 CMP GFR estim ate ml/min /1.73m ^2 97.7 GFR is calculate d using the CKD-EPI equation. FINAL Marlene Stroud [facility], [address] [facility] [address] [id number] 0 04/18 CMP Gluco se mg/dL 74.0 100.0 267 High FINAL Marlene Guzmán * [facility] [address] [id number] 0 04/18 CMP Potas sium mmol/L 3.5 5.1 4.0 FINAL Marlene Guzmán * [facility], [address] [facility] [address] [id number] 0 04/18 CMP Sodiu m mmol/L 137.0 145.0 136 Low FINAL Marlene Guzmán * [facility], [address] [facility] [address] [id number] 0 04/18 CMP Bilir ubin, total mg/dL 0.2 1.3 1.0 FINAL Marlene Guzmán * [facility], [address] [facility] [facility] [address] [id number] 0 04/18 CMP Total prote in g/dL 6.3 8.2 7.3 FINAL Marlene Guzmán * [facility], [address] [facility] 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 Patient testing should not be performed using multiple methodolo gies due to analytica l variation seen between test methodolo gies. FINAL Marlene Guzmán * [facility] , [address] [facility] [address] [facility] [id number] 0 03/09 Free kappa / lambd a with K/L ratio , serum Lambd a light chain , free, serum , mg/dL mg/dL 0.57 2.63 3.83 High Test performed at [facility] on a Binding Site Optilite Analyzer that uses a turbidime tric method for analysis. Patient testing should not be performed using multiple methodolo gies due to analytica l variation seen between test methodolo gies. FINAL Marlene Guzmán * [facility] , [address] [facility] [address] [id number] 0 03/09 Free kappa / lambd a with K/L ratio , serum K/L light chain ratio , free, serum 0.26 1.65 1.14% FINAL Marlene Guzmán * [facility] , [address] [facility] [address] [id number] 0 03/09 CMP Album in g/dL 3.5 5.0 3.8 FINAL Marlene Guzmán * [facility] , [address] [facility] [address] [id number] 0 03/09 CMP Alkal ine phosp hatas e U/L 36.0 125.0 106 FINAL Marlene Guzmán * [facility] , [address] [facility] [address] [facility] [id number] 0 03/09 CMP ALT/S GPT U/L 0.0 34.0 37 High FINAL Marlene Guzmán * [facility] , [address] [facility] [id number] 0 03/09 CMP AST/S GOT U/L 14.0 36.0 36 FINAL Marlene Guzmán * [facility] , [address] [facility] [id number] 0 03/09 CMP BUN mg/dL 7.0 17.0 18.0 High FINAL Marlene Guzmán * [facility] , [address] [facility] [id number] 0 03/09 CMP Calci um mg/dL 8.4 10.2 8.9 FINAL Marlene Guzmán * [facility] , [address] [facility] [id number] 0 03/09 CMP Chlor nilson mmol/L 96.0 107.0 99 FINAL Marlene Guzmán * [facility] , [address] [facility] [id number] 0 03/09 CMP CO2 mmol/L 22.0 30.0 [...] hour stability window. FINAL Marleneanabel Guzmán * [facility] , [address] [facility] [id number] 0 03/09 CMP Creat inine mg/dL 0.66 1.25 0.70 FINAL Marlene Guzmán * [facility] , [address] [facility] [id number] 0 03/09 CMP GFR estim ate ml/min /1.73m ^2 97.1 GFR is calculate d using the CKD-EPI equation. FINAL Marlene Ramirez * [facility] , [address] [facility] [id number] 0 03/09 CMP Gluco se mg/dL 74.0 100.0 363 Criti sami High FINAL Marlene Ramirez * [facility] , [address] [facility] [id number] 0 03/09 CMP Potas sium mmol/L 3.5 5.1 3.9 FINAL Marlene Ramirez * [facility] , [address] [facility] [id number] 0 03/09 CMP Sodiu m mmol/L 137.0 145.0 134 Low FINAL Marlene Ramirez * [facility] , [address] [facility] [id number] 0 03/09 CMP Bilir ubin, total mg/dL 0.2 1.3 1.1 FINAL Marlene Ramirez * [facility] , [address] [facility] [id number] 0 03/09 CMP Total prote in g/dL 6.3 8.2 7.3 FINAL Marlene Guzmán * [facility] , [address] [facility] [id number] 0 03/09 CBC w/ auto diff WBC K/uL 3.0 8.9 7.1 FINAL Marlene Guzmán [place] [facility] [place] [facility] , [address] [place] [id number] 0 03/09 CBC w/ auto diff HGB g/dL 11.3 15.2 14.4 FINAL Marlene Guzmán [place] [facility] [place] [facility] , [address] [place] [id number] 0 03/09 CBC w/ auto diff PLT K/uL 113.0 364.0 179 FINAL Marlene Guzmán [place] [facility] [place] [facility] , [address] [place] [id number] 0 03/09 CBC w/ auto diff Tammy # (ANC) K/uL 1.6 6.6 4.7 FINAL Marlene Guzmán [place] [facility] [place] [facility] , [address] [place] [id number] 0 03/09 CBC w/ auto diff Tammy % % 43.0 74.0 65.7 FINAL Marlene Guzmán [place] [facility] [place] [facility] , [address] [place] [id number] 0 03/09 CBC w/ auto diff IG % % 0.0 0.5 0.6 High FINAL Marlene Guzmán [place] [facility] [place] [facility] , [address] [place] [id number] 0 03/09 CBC w/ auto diff IG # K/uL 0.0 0.03 0.04 High FINAL Marlene Guzmán [place] [facility] [place] [facility] , [address] [place] [id number] 0 03/09 CBC w/ auto diff LY % % 14.0 41.0 25.8 FINAL Marlene Guzmán [place] [facility] [place] [facility] , [address] [place] [id number] 0 03/09 CBC w/ auto diff MO % % 6.0 15.0 6.2 FINAL Marlene Guzmán [place] [facility] [place] [facility] , [address] [place] [id number] 0 03/09 CBC w/ auto diff EO % % 0.0 7.0 1.1 FINAL Marlene Guzmán [place] [facility] [place] [facility] , [address] [place] [id number] 0 03/09 CBC w/ auto diff BA % % 0.0 2.0 0.6 FINAL Marlene Guzmán [place] [facility] [place] [facility] , [address] [place] [id number] 0 03/09 CBC w/ auto diff LY # K/uL 0.4 3.6 1.8 FINAL Marlene Guzmán [place] [facility] [place] [facility] , [address] [place] [id number] 0 03/09 CBC w/ auto diff MO # K/uL 0.2 1.3 0.4 FINAL Marlene Guzmán [place] [facility] [place] [facility] , [address] [place] [id number] 0 03/09 CBC w/ auto diff EO # K/uL 0.0 0.6 0.1 FINAL Marlene Guzmán [place] [facility] [place] [facility] , [address] [place] [id number] 0 03/09 CBC w/ auto diff BA # K/uL 0.0 0.2 0.0 FINAL Marlene Guzmán [place] [facility] [place] [facility] , [address] [place] [id number] 0 03/09 CBC w/ auto diff NRBC % #/100W BC 0.0 0.2 0.0 FINAL Marlene Guzmán [place] [facility] [place] [facility] , [address] [place] [id number] 0 03/09 CBC w/ auto diff RBC M/uL 3.9 5.1 5.08 FINAL Marlene Guzmán [place] [facility] [place] [facility] , [address] [place] [id number] 0 03/09 CBC w/ auto diff HCT % 35.0 48.0 42.9 FINAL Marlene Guzmán [place] [facility] [place] [facility] , [address] [place] [id number] 0 03/09 CBC w/ auto diff MCV fL 80.0 104.0 84.4 FINAL Marlene Guzmán [place] [facility] [place] [facility] , [address] [place] [id number] 0 03/09 CBC w/ auto diff MCH pg 26.0 35.0 28.3 FINAL Marlene Guzmán [place] [facility] [place] [facility] , [address] [place] [id number] 0 03/09 CBC w/ auto diff MCHC g/dL 30.0 35.0 33.6 FINAL Marlene Guzmán [place] [facility] [place] [facility] , [address] [place] [id number] 0 03/09 CBC w/ auto diff MPV fL 9.5 13.4 9.6 FINAL Marlene Guzmán [place] [facility] [place] [facility] , [address] [place] [id number] 0 03/09 CBC w/ auto diff RDW % 11.4 16.1 14.20 FINAL Marlene Guzmán [place] [facility] [place] [facility] , [address] [place] [id number] 0 03/09 Total prote in g/dL 6.3 8.2 7.1 FINAL Marlene Guzmán * [place] [facility] [place] [facility] , [address] [place] [id number] 0 03/09 Album in, SPE g/dL 3.31 5.31 4.70 FINAL Marlene Guzmán * [facility] , [address] [id number] 0 03/09 Alpha -1 globu tony g/dL 0.19 0.42 0.23 FINAL Marlene Guzmán * [facility] , [address] [facility] [id number] 0 03/09 Alpha -2 globu tony g/dL 0.44 1.03 0.52 FINAL Marlene Guzmán * [facility] , [address] [id number] 0 03/09 Beta globu tony g/dL 0.52 1.05 0.80 FINAL Marlene Guzmán * [facility] , [address] [id number] 0 03/09 Gamma globu tony g/dL 0.59 1.46 0.85 FINAL Marlene Guzmán * [facility] , [address] [id number] 0 03/09 Elect Gemma layton in Lab resul t note Previou sly identif ied parapro teins detecte d in gamma region. Is now 0.3 and 0.4 gm/dL. Interpr eted and signed by Luis Guillermo MD on 025 FINAL Marlene Guzmán * [facility] , [address] [facility] [id number] 0 03/09 M-spi ke, SPE, g/dL g/dL 0.0 0.0 0.3 High FINAL Marlene Guzmán * [facility] , [address] [id number] 0 03/09 M-spi ke 2, SPE g/dL 0.0 0.0 0.4 High FINAL Marlene Guzmán * [facility] , [address] [facility] [id number] 0 03/09 Immun oglob ulin measu remen t IgG, quant mg/dL 610.0 1616.0 1080.49 Test performed at [facility] on a Binding Site Optilite Analyzer that uses a turbidime tric method for analysis. Patient testing should not be performed using multiple methodolo gies due to analytica l variation seen between test methodolo gies. FINAL Marlene Ramirez * [facility] , [address] [facility] [address] [facility] [id number] 0 03/09 Immun oglob ulin measu remen t IgA, quant mg/dL 61.0 348.0 577.26 High Test performed at [facility] on a Binding Site Optilite Analyzer that uses a turbidime tric method for analysis. Patient testing should not be performed using multiple methodolo gies due to analytica l variation seen between test methodolo gies. FINAL Marlene Ramirez * [facility] , [address] [facility] [id number] [phone] 03/09 Immun oglob ulin measu remen t IgM, quant mg/dL 35.0 242.0 91.00 Test performed at [facility] on a Binding Site Optilite Analyzer that uses a turbidime tric method for analysis. Patient testing should not be performed using multiple methodolo gies due to analytica l variation seen between test methodolo gies. FINAL Marlene Guzmán * [facility] , [address] [facility] [id number] 04/03 [facility] – [...] 04/10/2025 Pain Scale 7.00 Notes Section * SNOW REMOVAL/PLOWING Follow-Up GYNECOLOGIC ONCOLOGY FOLLOW-UP VISIT Patient Name: JOSE ANGEL HENRY : 1960 Date of Visit: 10/11/2023 Referring Provider: Malissa Hernandez MD (PRECONSTRUCTION MANAGER) Attending: Marlene Guzmán (Hematology/Oncology) Chief Complaint ([employer]inger Song[employer] Oncology): 6 week post op?? History of Present Illness (Singer Songwriter Oncology): 63 y.o.?? 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 Anxious, , female with somewhat [...] record:05/23/2019 Last record:05/23/2019; ) Assessment & Plan (Singer Songwriter Oncology): 63?? y.o. 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 Pathology benign. Reviewedpathology, operative findings, expected recovery.?? She is recovering well, no further restrictions.?? She can follow up with PCP/environmental technology professor as needed.? 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
--- OUTSIDE RECORDS SUMMARY | 2025-07-06 23:26 | XMS_ITS ---
Author Name Interface, [id number] Address [address] [facility] [address] [place] [address] [facility] Address [address] [facility] [place] [address] Support Name Relationship Address Phone Greg Ch [...] FINAL [facility] [place], [address] [place] [address] 210 [facility] [place] [phone] Phone: () - 11/22 Appea ying (ua) Clear FINAL [facility] [place], [address] [place] [address] 210 [facility] [place] [phone] 0 Phone: () - 11/22 Gluco se (ua), qual 500.0% Abnor mal FINAL [facility] [place], [address] [facility] 210 [facility] [place] [phone] 0 Phone: () - 11/22 Bilir ubin (ua) Negativ e FINAL [facility] [place], [address] [place] [address] 210 [facility] [place] [phone] 0 Phone: () - 11/22 Urina lysis , aceto ne or keton e chapo s measu remen t Negativ e FINAL [facility] [place], [address] [facility] 210 [place] [phone] 0 Phone: () - 11/22 Speci fic gravi ty (ua) 1.005 1.02 1.025% Abnor mal FINAL [facility] [place], [address] [facility] 210 [place] [phone] 0 Phone: () - 11/22 Blood (ua) Negativ e FINAL [facility] [place], [address] [place] [address] 210 [place] [phone] 0 Phone: () - 11/22 pH (ua) 5.0 8.0 6.0% FINAL [facility] [place], [address] [place] [address] 210 [facility] [place] [phone] 0 Phone: () - 11/22 Prote in (ua) Negativ e FINAL [facility] [place], [address] [place] [address] 210 [place] [phone] 0 Phone: () - 11/22 Urobi linog en (ua) 0.2 1.0 0.2% FINAL [facility] [place], [address] [place] [address] 210 [place] [phone] 0 Phone: () - 11/22 Nitri te (ua) Negativ e FINAL [facility] [place], [address] [place] [address] 210 [place] [phone] 0 Phone: () - 11/22 Leuko cyte jerson ase (ua), qual Negativ e FINAL [facility] [place], [address] [place] [address] 210 [place] [phone] 0 Phone: () - 11/22 UA comme nt 1 Dipstic k negativ e- Culture ordered per provide r FINAL [facility] [place], [address] [place] [address] 210 [place] [phone] Phone: () - 11/22 Urine cultu re panel CULTU RE, URINE , ROUTI NE SEE NOTE Abnor mal CULTURE, 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 FINAL Hafsa Bud [facility], [facility] [address] [facility] [id number] 4 12/18 [facility] other lab See tool filer d 04/18 Total prote in g/dL 6.3 8.2 6.9 FINAL Marlene Guzmán * [facility], [address] [facility] [address] [place] [address] [id number] 04/18 Album in, SPE g/dL 3.31 5.31 3.97 FINAL Marlene Guzmán * [facility], [facility] [address] [place] [address] [id number] 0 04/18 Alpha -1 globu tony g/dL 0.19 0.42 0.26 FINAL Marlene Guzmán * [facility], [facility] [address] [place] [address] [id number] 04/18 Alpha -2 globu tony g/dL 0.44 1.03 0.63 FINAL Marlene Guzmán * [facility] [address] [place] [address] [id number] 0 04/18 Beta globu tony g/dL 0.52 1.05 0.95 FINAL Marlene Guzmán * [facility] [address] [facility] [address] [place] [address] [id number] 0 04/18 Gamma globu tony g/dL 0.59 1.46 1.10 FINAL Marlene Guzmán * [facility], [address] [facility] [address] [place] [address] [id number] 0 04/18 Elect Gemma layton in Lab resul t note Previou sly identif ied parapro teins detecte d in gamma region. Were 0.3 and 0.4 gm/dL, now 0.3 and 0.3 gm/dL. Interpr eted and signed by Adrienne Swanson MD on 024 FINAL Marlene Guzmán * [facility], [facility] [address] [place] [address] [id number] 04/18 M-spi ke, SPE, g/dL g/dL 0.0 0.0 0.3 High FINAL Marleneanabel Guzmán * [facility], [address] [facility] [id number] 0 04/18 M-spi ke 2, SPE g/dL 0.0 0.0 0.3 High FINAL Marlene Guzmán * [facility], [address] [facility] [address] [facility] [id number] 0 04/18 Immun oglob ulin measu remen t IgG, quant mg/dL 610.0 1616.0 946.67 Test performed at [facility] on a Binding Site Optilite Analyzer that uses a turbidime tric method for analysis. Patient testing should not be performed using multiple methodolo gies due to analytica l variation seen between test methodolo gies. FINAL Marlene Guzmán * [facility], [address] [id number] 0 04/18 Immun oglob ulin measu remen t IgA, quant mg/dL 61.0 348.0 493.08 High Test performed at [facility] on a Binding Site Optilite Analyzer that uses a turbidime tric method for analysis. Patient testing should not be performed using multiple methodolo gies due to analytica l variation seen between test methodolo gies. FINAL Marlene Guzmán * [facility], [address] [id number] 0 04/18 Immun oglob ulin measu remen t IgM, quant mg/dL 35.0 242.0 75.62 Test performed at [facility] on a Binding Site Optilite Analyzer that uses a turbidime tric method for analysis. Patient testing should not be performed using multiple methodolo gies due to analytica l variation seen between test methodolo gies. FINAL Mralene Guzmán * [facility] [place], [address] [id number] 0 04/18 Free kappa / lambd a with K/L ratio , serum Larned light chain , free, serum , mg/dL mg/dL 0.33 1.94 3.62 High Test performed at [facility] on a Binding Site Optilite Analyzer that uses a turbidime tric method for analysis. Patient testing should not be performed using multiple methodolo gies due to analytica l variation seen between test methodolo gies. FINAL Marlene Stroud [facility], [address] [id number] 0 04/18 Free kappa / lambd a [...] methodolo gies. FINAL Marlene [facility], [address] [facility] [address] [id number] 0 04/18 Free kappa / lambd a with K/L ratio , serum K/L light chain ratio , free, serum 0.26 1.65 1.16% FINAL Marlene [facility], [address] [facility] [address] [id number] 0 04/18 CBC w/ auto diff WBC K/uL 3.0 8.9 7.0 FINAL Marlene [facility] [place], [address] [facility] [address] [facility] [id number] 0 Phone: () - 04/18 CBC w/ auto diff HGB g/dL 11.3 15.2 14.0 FINAL Marlene [facility] - [place], [address] [place] [id number] 0 Phone: () - 04/18 CBC w/ auto diff PLT K/uL 113.0 364.0 164 FINAL Marlene [facility]i [facility] - [place], [address] [place] [id number] 0 Phone: () - 04/18 CBC w/ auto diff Tammy # (ANC) K/uL 1.6 6.6 4.5 FINAL Marlene [facility] [place], [address] [place] [id number] 0 Phone: () - 04/18 CBC w/ auto diff Tammy % % 43.0 74.0 64.0 FINAL Marlene Ramirez [facility] [place], [address] [place] [id number] 0 Phone: () - 04/18 CBC w/ auto diff IG % % 0.0 0.5 0.3 FINAL Marlene Ramirez [facility] [place], [address] [place] [id number] 0 Phone: () - 04/18 CBC w/ auto diff IG # K/uL 0.0 0.03 0.02 FINAL Marlene Ramirez [facility] [place], [address] [place] [id number] 0 Phone: () - 04/18 CBC w/ auto diff LY % % 14.0 41.0 28.2 FINAL Marlene Guzmán [facility] [place], [address] [place] [id number] 0 Phone: () - 04/18 CBC w/ auto diff MO % % 6.0 15.0 6.0 FINAL Marlene Guzmán [facility] [place], [address] [place] [id number] 0 Phone: () - 04/18 CBC w/ auto diff EO % % 0.0 7.0 1.1 FINAL Marlene [facility] [place], [address] [place] [id number] 0 Phone: () - 04/18 CBC w/ auto diff BA % % 0.0 2.0 0.4 FINAL Marlene [facility] [place], [address] [place] [id number] 0 Phone: () - 04/18 CBC w/ auto diff LY # K/uL 0.4 3.6 2.0 FINAL Marlene [facility] - [place], [address] [place] [id number] 0 Phone: () - 04/18 CBC w/ auto diff MO # K/uL 0.2 1.3 0.4 FINAL Marlene [facility] [place], [address] [place] [id number] 0 Phone: () - 04/18 CBC w/ auto diff EO # K/uL 0.0 0.6 0.1 FINAL Marlene [facility] - [place], [address] [place] [id number] 0 Phone: () - 04/18 CBC w/ auto diff BA # K/uL 0.0 0.2 0.0 FINAL Marlene [facility] - [place], [address] [place] [id number] 0 Phone: () - 04/18 CBC w/ auto diff NRBC % #/100W BC 0.0 0.2 0.0 FINAL Marlene [facility] - [place], [address] [place] [id number] 0 Phone: () - 04/18 CBC w/ auto diff RBC M/uL 3.9 5.1 4.84 FINAL Marlene [facility] [place], [address] [place] [id number] 0 Phone: () - 04/18 CBC w/ auto diff HCT % 35.0 48.0 40.4 FINAL Marlene Guzmán [facility] [place], [address] [place] [id number] 0 Phone: () - 04/18 CBC w/ auto diff MCV fL 80.0 104.0 83.5 FINAL Marlene Guzmán [facility] [place], [address] [place] [id number] 0 Phone: () - 04/18 CBC w/ auto diff MCH pg 26.0 35.0 28.9 FINAL Marlene Guzmán [facility] [place], [address] [place] [id number] 0 Phone: () - 04/18 CBC w/ auto diff MCHC g/dL 30.0 35.0 34.7 FINAL Marlene Guzmán [facility] [place], [address] [place] [id number] 0 Phone: () - 04/18 CBC w/ auto diff MPV fL 9.5 13.4 9.7 FINAL Marlene Guzmán [facility] [place], [address] [place] [id number] 0 Phone: () - 04/18 CBC w/ auto diff RDW % 11.4 16.1 13.80 FINAL Marlene Guzmán [facility] [place], [address] [place] [id number] 0 Phone: () - 04/18 CMP Album in g/dL 3.5 5.0 4.0 FINAL Marlene Guzmán * [facility] [place], [address] [place] [id number] 0 04/18 CMP Alkal ine phosp hatas e U/L 36.0 125.0 105 FINAL Marlene Guzmán * [facility] [place], [address] [place] [id number] 0 04/18 CMP ALT/S GPT U/L 0.0 34.0 35 High FINAL Marlene Guzmán * [facility], [address] [facility] [address] [id number] 0 04/18 CMP AST/S GOT U/L 14.0 36.0 44 High FINAL Marlene Guzmán * [facility], [address] [facility] [address] [id number] 0 04/18 CMP BUN mg/dL 7.0 17.0 21.0 High FINAL Marlene Guzmán * [facility], [address] [facility] [address] [id number] 0 04/18 CMP Calci um mg/dL 8.4 10.2 8.8 FINAL Marlene Guzmán * [facility], [address] [facility] [address] [id number] 0 04/18 CMP Chlor nilson mmol/L 96.0 107.0 106 FINAL Marlene Guzmán * [facility], [address] [facility] [address] [id number] 0 04/18 CMP CO2 mmol/L 22.0 30.0 [...] hour stability window. FINAL Marlene Guzmán * [facility], [address] [facility] [address] [id number] 0 04/18 CMP Creat inine mg/dL 0.66 1.25 0.70 FINAL Marlene Guzmán * [facility], [address] [facility] [id number] 0 04/18 CMP GFR estim ate ml/min /1.73m ^2 97.7 GFR is calculate d using the CKD-EPI equation. FINAL Marlene Guzmán * [facility], [address] [facility] [id number] 0 04/18 CMP Gluco se mg/dL 74.0 100.0 267 High FINAL Marlene Guzmán * [facility], [address] [facility] [id number] 0 04/18 CMP Potas sium mmol/L 3.5 5.1 4.0 FINAL Marlene Guzmán * [facility], [address] [facility] [id number] 0 04/18 CMP Sodiu m mmol/L 137.0 145.0 136 Low FINAL Marlene Guzmán * [facility], [address] [facility] [id number] 0 04/18 CMP Bilir ubin, total mg/dL 0.2 1.3 1.0 FINAL Marlene Guzmán * [facility], [address] [facility] [id number] 0 04/18 CMP Total prote in g/dL 6.3 8.2 7.3 FINAL Marlene Guzmán * [facility], [address] [facility] [id number] 0 04/18 [facility] other lab See tool filer d 12/20 [facility] other lab See tool filer d 12/20 Misc other lab See tool filer d 03/09 Free kappa / lambd a with K/L ratio , serum Larned light chain , free, serum , mg/dL mg/dL 0.33 1.94 4.35 High Test performed at [facility] on a Binding Site Optilite Analyzer that uses a turbidime tric method for analysis. Patient testing should not be performed using multiple methodolo gies due to analytica l variation seen between test methodolo gies. FINAL Marlene Guzmán * [facility] , [address] [facility] [address] [facility] [id number] 0 03/09 Free kappa / lambd a [...] test methodolo gies. FINAL Marlene Guzmán * [facility] , [address] [facility] [address] [id number] 0 03/09 Free kappa / lambd a with K/L ratio , serum K/L light chain ratio , free, serum 0.26 1.65 1.14% FINAL Marlene Guzmán * [facility] , [address] [facility] [address] [id number] 0 03/09 CMP Album in g/dL 3.5 5.0 3.8 FINAL Marlene Guzmán * [facility] , [address] [facility] [address] [id number] 0 03/09 CMP Alkal ine phosp hatas e U/L 36.0 125.0 106 FINAL Marleen Guzmán * [facility] , [address] [facility] [address] [id number] 0 03/09 CMP ALT/S GPT U/L 0.0 34.0 37 High FINAL Marlene Guzmán * [facility] , [address] [facility] [address] [id number] 0 03/09 CMP AST/S GOT U/L 14.0 36.0 36 FINAL Marlene Ramirez * [facility] , [address] [facility] [address] [facility] [id number] 0 03/09 CMP BUN mg/dL 7.0 17.0 18.0 High FINAL Marlene Guzmán * [facility] , [address] [facility] [address] [facility] [id number] 0 03/09 CMP Calci um mg/dL 8.4 10.2 8.9 FINAL Marlene Guzmán * [facility] , [address] [facility] [address] [facility] [id number] 0 03/09 CMP Chlor nilson mmol/L 96.0 107.0 99 FINAL Marlene Guzmán * [facility] , [address] [facility] [address] [facility] [id number] 0 03/09 CMP CO2 mmol/L 22.0 30.0 [...] hour stability window. FINAL Marlene Guzmán * [facility] , [address] [facility] [address] [facility] [id number] 0 03/09 CMP Creat inine mg/dL 0.66 1.25 0.70 FINAL Marlene Guzmán * [facility] , [address] [facility] [address] [facility] [id number] 0 03/09 CMP GFR estim ate ml/min /1.73m ^2 97.1 GFR is calculate d using the CKD-EPI equation. FINAL Marlene Guzmán * [facility] , [address] [facility] [address] [id number] 0 03/09 CMP Gluco se mg/dL 74.0 100.0 363 Criti sami High FINAL Marlene Guzmán * [facility] , [address] [facility] [address] [facility] [id number] 0 03/09 CMP Potas sium mmol/L 3.5 5.1 3.9 FINAL Marlene Guzmán * [facility] , [address] [facility] [address] [facility] [id number] 0 03/09 CMP Sodiu m mmol/L 137.0 145.0 134 Low FINAL Marlene Guzmán * [facility] , [address] [facility] [address] [facility] [id number] 0 03/09 CMP Bilir ubin, total mg/dL 0.2 1.3 1.1 FINAL Marlene Guzmán * [facility] , [address] [facility] [address] [facility] [id number] 0 03/09 CMP Total prote in g/dL 6.3 8.2 7.3 FINAL Marlene Guzmán * [facility] , [address] [facility] [address] [facility] [id number] 0 03/09 CBC w/ auto diff WBC K/uL 3.0 8.9 7.1 FINAL Marlene Guzmán [place] [facility] [place] [facility] , [address] [place] [id number] 0 03/09 CBC w/ auto diff HGB g/dL 11.3 15.2 14.4 FINAL Marlene Guzmán [place] [facility] [place] [facility] , [address] [place] [id number] 0 03/09 CBC w/ auto diff PLT K/uL 113.0 364.0 179 FINAL Marlene Guzmán [place] [facility] [place] [facility] , [address] [place] [id number] 0 03/09 CBC w/ auto diff Tammy # (ANC) K/uL 1.6 6.6 4.7 FINAL Marlene Guzmán [place] [facility] [place] [facility] , [address] [place] [id number] 0 03/09 CBC w/ auto diff Tammy % % 43.0 74.0 65.7 FINAL Marlene Guzmán [place] [facility] [place] [facility] , [address] [place] [id number] 0 03/09 CBC w/ auto diff IG % % 0.0 0.5 0.6 High FINAL Marlene Guzmán [place] [facility] [place] [facility] , [address] [place] [id number] 0 03/09 CBC w/ auto diff IG # K/uL 0.0 0.03 0.04 High FINAL Marlene Guzmán [place] [facility] [place] [facility] , [address] [place] [id number] 0 03/09 CBC w/ auto diff LY % % 14.0 41.0 25.8 FINAL Marlene Guzmán [place] [facility] [place] [facility] , [address] [place] [id number] 0 03/09 CBC w/ auto diff MO % % 6.0 15.0 6.2 FINAL Marlene Guzmán [place] [facility] [place] [facility] , [address] [place] [id number] 0 03/09 CBC w/ auto diff EO % % 0.0 7.0 1.1 FINAL Marlene Guzmán [place] [facility] [place] [facility] , [address] [place] [id number] 0 03/09 CBC w/ auto diff BA % % 0.0 2.0 0.6 FINAL Marlene Guzmán [place] [facility] , [address] [place] [id number] 0 03/09 CBC w/ auto diff LY # K/uL 0.4 3.6 1.8 FINAL Marlene Guzmán [place] [facility] [place] [facility] , [address] [place] [id number] 0 03/09 CBC w/ auto diff MO # K/uL 0.2 1.3 0.4 FINAL Marlene Guzmán [place] [facility] [place] [facility] , [address] [place] [id number] 0 03/09 CBC w/ auto diff EO # K/uL 0.0 0.6 0.1 FINAL Marlene Guzmán [place] [facility] [place] [facility] , [address] [place] [id number] 0 03/09 CBC w/ auto diff BA # K/uL 0.0 0.2 0.0 FINAL Marlene Guzmán [place] [facility] [place] [facility] , [address] [place] [id number] 0 03/09 CBC w/ auto diff NRBC % #/100W BC 0.0 0.2 0.0 FINAL Marlene Guzmán [place] [facility] [place] [facility] , [address] [place] [id number] 0 03/09 CBC w/ auto diff RBC M/uL 3.9 5.1 5.08 FINAL Marlene Guzmán [place] [facility] [place] [facility] , [address] [place] [id number] 0 03/09 CBC w/ auto diff HCT % 35.0 48.0 42.9 FINAL Marlene Guzmán [facility] , [address] [place] [facility] [id number] 0 03/09 CBC w/ auto diff MCV fL 80.0 104.0 84.4 FINAL Marlene Guzmán [facility] On[facility] , [address] [facility] [address] [place] [facility] [id number] 0 03/09 CBC w/ auto diff MCH pg 26.0 35.0 28.3 FINAL Marlene Guzmán [facility] , [address] [facility] [address] [facility] [id number] 0 03/09 CBC w/ auto diff MCHC g/dL 30.0 35.0 33.6 FINAL Marlene Guzmán [facility] , [address] [facility] [address] [facility] [id number] 0 03/09 CBC w/ auto diff MPV fL 9.5 13.4 9.6 FINAL Marlene Guzmán [facility] , [address] [facility] [address] [facility] [id number] 0 03/09 CBC w/ auto diff RDW % 11.4 16.1 14.20 FINAL Marlene Guzmán [facility] On[facility] , [address] [facility] [address] [facility] [id number] 0 03/09 Immun oglob ulin measu remen t IgG, quant mg/dL 610.0 1616.0 1080.49 Test performed at [facility] on a Binding Site Optilite Analyzer that uses a turbidime tric method for analysis. Patient testing should not be performed using multiple methodreal rocha due to analytica l variation seen between test methodreal rocha. FINAL Marlene Guzmán * [facility] , [address] [facility] [id number] 0 03/09 Immun oglob ulin measu remen t IgA, quant mg/dL 61.0 348.0 577.26 High Test performed at [facility] on a Binding Site Optilite Analyzer that uses a turbidime tric method for analysis. Patient testing should not be performed using multiple methodolo gies due to analytica l variation seen between test methodolo gies. FINAL Marlene Guzmán * [facility] , [facility] [address] [id number] 0 03/09 Immun oglob ulin measu remen t IgM, quant mg/dL 35.0 242.0 91.00 Test performed at [facility] on a Binding Site Optilite Analyzer that uses a turbidime tric method for analysis. Patient testing should not be performed using multiple methodolo gies due to analytica l variation seen between test methodolo gies. FINAL Marlene Guzmán * [facility] , [facility] [address] [id number] 0 03/09 Total prote in g/dL 6.3 8.2 7.1 FINAL Marlene Guzmán * [facility] , [facility] [address] [place] [address] [id number] 0 03/09 Album in, SPE g/dL 3.31 5.31 4.70 FINAL Marlene Guzmán * [facility] , [facility] [address] [id number] 0 03/09 Alpha -1 globu tony g/dL 0.19 0.42 0.23 FINAL Marlene Guzmán * [facility] , [facility] [address] [id number] 0 03/09 Alpha -2 globu tony g/dL 0.44 1.03 0.52 FINAL Marlene Guzmán * [facility] , [facility] [address] [id number] 0 03/09 Beta globu tony g/dL 0.52 1.05 0.80 FINAL Marlene uGzmán * [facility] , [address] [facility] [address] [id number] 0 03/09 Gamma globu tony g/dL 0.59 1.46 0.85 FINAL Marlene Guzmán * [facility] , [address] [facility] [address] [id number] 0 03/09 Elect Gemma layton in Lab resul t note Previou sly identif ied parapro teins detecte d in gamma region. Is now 0.3 and 0.4 gm/dL. Interpr eted and signed by Luis Guillermo MD on 025 FINAL Marlene Guzmán * [facility] , [facility] [address] [id number] 0 03/09 M-spi ke, SPE, g/dL g/dL 0.0 0.0 0.3 High FINAL Marlene Guzmán * [facility] , [address] [facility] [address] [id number] 0 03/09 M-spi ke 2, SPE g/dL 0.0 0.0 0.4 High FINAL Marlene Guzmán * [facility] , [address] [facility] [address] [id number] 0 04/03 Misc other lab See tool filer d Medications Date Name Route Dose Frequency [...] 70 04/10/2025 BMI 53.23 Notes 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 History of Present Illness ([employer]): 63 y.o.?? 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 Genetic Testing ([employer]): Interval History ([employer]) She is crying??when I walk in [...] Hysteroscopy with myosure, D & C 06/28/23 claim adjuster History: - 3 , 1 SAb Allergies: [...] 50 mg tablet daily 75 mg * [place] (Hydrocodone-Acetaminophen Oral 5 mg-325 mg) 5-325 mg [...] BSA: 2.37, BMI: 48.36 kg/m2 Physical Exam ([employer] [facility]): General:?? Anxious, , female tearful??throughout visit. [...] record:05/23/2019 Last record:05/23/2019; ) Assessment & Plan ([employer]): 63?? y.o. with abnormal uterine bleeding/PMB [...]
--- OUTSIDE RECORDS SUMMARY | 2025-07-06 23:26 | XMS_ITS ---
Author Name Interface, [id number] lity Address [address] [facility] [address] [place] [address] [facility] Address [address] [facility] [address] [place] [address] Support Name Relationship Address Phone Greg Henry [...] Ordered By Specimen Source Lab Address 11/05 [facility] other lab See elastic attacher zigzag d 11/08 [facility] other lab See elastic attacher zigzag d 11/22 Color (ua) Yellow FINAL Hafsa Bud [facility] [facility] [place], [address] [facility] 210 [place] [phone] 0 Phone: () - 11/22 Appea ying (ua) Clear FINAL Hafsaanabel Rubi [facility] - [place], [address] [place] [address] 210 [place] [phone] 0 Phone: () - 11/22 Gluco se (ua), qual 500.0% Abnor mal FINAL Hafsaanabel [facility]i [facility] - [place], [address] [place] [address] 210 [place] [phone] 0 Phone: () - 11/22 Bilir ubin (ua) Negativ e FINAL Hafsaanabel Rubi [facility] - [place], [address] [place] [address] 210 [place] [phone] 0 Phone: () - 11/22 Urina lysis , aceto ne or keton e chapo s measu remen t Negativ e FINAL Hafsaanabel Rubi [facility] - [place], [address] [place] [address] 210 [place] [phone] 0 Phone: () - 11/22 Speci fic gravi ty (ua) 1.005 1.02 1.025% Abnor mal FINAL Hafsaanabel [facility]i [facility] - [place], [address] [place] [address] 210 [place] [phone] 0 Phone: () - 11/22 Blood (ua) Negativ e FINAL Hafsaanabel [facility]i [facility] - [place], [address] [place] [address] 210 [place] [phone] 0 Phone: () - 11/22 pH (ua) 5.0 8.0 6.0% FINAL Hafsaanabel [place] [facility] - [place], [address] [place] [address] 210 [place] [phone] 0 Phone: () - 11/22 Prote in (ua) Negativ e FINAL Hafsaanabel Rubi [facility] - [place], [address] [place] [address] 210 [place] [phone] 0 Phone: () - 11/22 Urobi linog en (ua) 0.2 1.0 0.2% FINAL Hafsaanabel [facility] - [place], [address] [place] [address] 210 [facility] [phone] 0 Phone: () - 11/22 Nitri te (ua) Negativ e FINAL Hafsa Rubi a [facility], [address] [place] [address] 210 [facility] [phone] 0 Phone: () - 11/22 Leuko cyte jerson ase (ua), qual Negativ e FINAL Hafsa Rubi [facility], [address] [place] [address] [phone] 0 Phone: () - 11/22 UA comme nt 1 Dipstic k negativ e- Culture ordered per provide r FINAL Hafsa Rubi [facility], [address] [place] [address] [phone] Phone: () - 11/22 Urine cultu re panel CULTU RE, URINE , ROUTI NE SEE NOTE Abnor mal CULTURE, URINE, 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 FINAL Hafsaanabel Farrell [facility] [address] [facility] [id number] 4 12/18 [facility] other lab See d 04/18 Total prote in g/dL 6.3 8.2 6.9 FINAL Marlene Guzmán * [facility], [facility] [address] [place] [address] [id number] 0 04/18 Album in, SPE g/dL 3.31 5.31 3.97 FINAL Marlene Guzmán * [facility], [facility] [place] [address] [id number] 0 04/18 Alpha -1 globu tony g/dL 0.19 0.42 0.26 FINAL Marlene Guzmán * [facility], [address] [id number] 0 04/18 Alpha -2 globu tony g/dL 0.44 1.03 0.63 FINAL Marlene Guzmán * [facility], [address] [id number] 0 04/18 Beta globu tony g/dL 0.52 1.05 0.95 FINAL Marlene Guzmán * [facility], [address] [id number] 0 04/18 Gamma globu tony g/dL 0.59 1.46 1.10 FINAL Marlene Guzmán * [facility], [facility] [address] [place] [address] [id number] 0 04/18 Elect abiola jackson Gemma in Lab resul t note Previou sly identif ied parapro teins detecte d in gamma region. Were 0.3 and 0.4 gm/dL, now 0.3 and 0.3 gm/dL. Interpr eted and signed by Adrienne Swanson MD on 024 FINAL Marlene Guzmán * [facility], [facility] [address] [place] [address] [id number] 0 04/18 M-spi ke, SPE, g/dL g/dL 0.0 0.0 0.3 High FINAL Marlene Guzmán * [facility], [address] [facility] [address] [id number] 04/18 M-spi ke 2, SPE g/dL 0.0 0.0 0.3 High FINAL Marlene Guzmán * [facility], [facility] [address] [place] [address] [id number] 0 04/18 Immun oglob ulin measu remen t IgG, quant mg/dL 610.0 1616.0 946.67 Test performed at [facility] on a Binding Site Optilite Analyzer that uses a turbidime tric method for analysis. Patient testing should not be performed using multiple methodreal gikim due to analytica l variation seen between test methodreal rocha. FINAL Marlene Guzmán * [facility], [facility] [address] [place] [address] [id number] 0 04/18 Immun oglob ulin measu remen t IgA, quant mg/dL 61.0 348.0 493.08 High Test performed at [facility] on a Binding Site Optilite Analyzer that uses a turbidime tric method for analysis. Patient testing should not be performed using multiple methodolo gies due to analytica l variation seen between test methodolo gies. FINAL Marlene Stroud [facility] [address] [place] [address] [id number] 0 04/18 Immun oglob ulin measu remen t IgM, quant mg/dL 35.0 242.0 75.62 Test performed at [facility] on a Binding Site Optilite Analyzer that uses a turbidime tric method for analysis. Patient testing should not be performed using multiple methodolo gies due to analytica l variation seen between test methodolo gies. FINAL Marlene Stroud [facility] a [address] [place] [address] [id number] 0 04/18 Free kappa / lambd a with K/L ratio , serum [place] light chain , free, serum , mg/dL mg/dL 0.33 1.94 3.62 High Test performed at [facility] on a Binding Site Optilite Analyzer that uses a turbidime tric method for analysis. Patient testing should not be performed using multiple methodolo gies due to analytica l variation seen between test methodolo gies. FINAL Marlene Guzmán * Jann a [address] [place] [address] [id number] 0 04/18 Free kappa / lambd a with K/L ratio , serum Lambd a light chain , free, serum , mg/dL mg/dL 0.57 2.63 3.13 High Test performed at [facility] on a Binding Site Optilite Analyzer that uses a turbidime tric method for analysis. Patient testing should not be performed using multiple methodolo gies due to analytica l variation seen between test methodolo gies. FINAL Marlene Stroud [facility] [address] [place] [address] [id number] 0 04/18 Free kappa / lambd a with K/L ratio , serum K/L light chain ratio , free, serum 0.26 1.65 1.16% FINAL Marlene Guzmán * [facility] [place], [address] [facility] [place] [id number] 0 04/18 CBC w/ auto diff WBC K/uL 3.0 8.9 7.0 FINAL Marlene [facility] - [place], [address] [place] [id number] 0 Phone: () - 04/18 CBC w/ auto diff HGB g/dL 11.3 15.2 14.0 FINAL Marlene Rubi a [facility] - [place], [address] [place] [id number] 0 Phone: () - 04/18 CBC w/ auto diff PLT K/uL 113.0 364.0 164 FINAL Marlene Rubi a [facility] - [place], [address] [place] [id number] 0 Phone: () - 04/18 CBC w/ auto diff Tammy # (ANC) K/uL 1.6 6.6 4.5 FINAL Marlene pagan [facility] - [place], [address] [place] [id number] 0 Phone: () - 04/18 CBC w/ auto diff Tammy % % 43.0 74.0 64.0 FINAL Marlene pagan [facility] - [place], [address] [place] [id number] 0 Phone: () - 04/18 CBC w/ auto diff IG % % 0.0 0.5 0.3 FINAL Marlene Rubi a [facility] - [place], [address] [place] [id number] 0 Phone: () - 04/18 CBC w/ auto diff IG # K/uL 0.0 0.03 0.02 FINAL Marlene Rubi a [facility] - [place], [address] [place] [id number] 0 Phone: () - 04/18 CBC w/ auto diff LY % % 14.0 41.0 28.2 FINAL Marlene pagan [facility] - [place], [address] [place] [id number] 0 Phone: () - 04/18 CBC w/ auto diff MO % % 6.0 15.0 6.0 FINAL Marlene pagan [facility] - [place], [address] [place] [id number] 0 Phone: () - 04/18 CBC w/ auto diff EO % % 0.0 7.0 1.1 FINAL Marlene pagan [facility] - [place], [address] [place] [id number] 0 Phone: () - 04/18 CBC w/ auto diff BA % % 0.0 2.0 0.4 FINAL Marlene pagan [facility] - [place], [address] [place] [id number] 0 Phone: () - 04/18 CBC w/ auto diff LY # K/uL 0.4 3.6 2.0 FINAL Marlene pagan [facility] - [place], [address] [place] [id number] 0 Phone: () - 04/18 CBC w/ auto diff MO # K/uL 0.2 1.3 0.4 FINAL Marlene pagan [facility] - [place], [address] [place] [id number] 0 Phone: () - 04/18 CBC w/ auto diff EO # K/uL 0.0 0.6 0.1 FINAL Marlene pagan [facility] - [place], [address] [place] [id number] 0 Phone: () - 04/18 CBC w/ auto diff BA # K/uL 0.0 0.2 0.0 FINAL Marlene pagan [facility] - [place], [address] [place] [id number] 0 Phone: () - 04/18 CBC w/ auto diff NRBC % #/100W BC 0.0 0.2 0.0 FINAL Marlene [facility] [facility] - [place], [address] [place] [id number] 0 Phone: () - 04/18 CBC w/ auto diff RBC M/uL 3.9 5.1 4.84 FINAL Marlene [facility] - [place], [address] [place] [id number] 0 Phone: () - 04/18 CBC w/ auto diff HCT % 35.0 48.0 40.4 FINAL Marlene Ramirez [facility] - [place], [address] [place] [id number] 0 Phone: () - 04/18 CBC w/ auto diff MCV fL 80.0 104.0 83.5 FINAL Marlene Ramirez [facility] - [place], [address] [place] [id number] 0 Phone: () - 04/18 CBC w/ auto diff MCH pg 26.0 35.0 28.9 FINAL Marlene Guzmán [facility] - [place], [address] [place] [id number] 0 Phone: () - 04/18 CBC w/ auto diff MCHC g/dL 30.0 35.0 34.7 FINAL Marlene Guzmán [facility] - [place], [address] [place] [id number] 0 Phone: () - 04/18 CBC w/ auto diff MPV fL 9.5 13.4 9.7 FINAL Marlene Guzmán [facility] - [place], [address] [place] [id number] 0 Phone: () - 04/18 CBC w/ auto diff RDW % 11.4 16.1 13.80 FINAL Marlene Guzmán [facility] [place], [address] [facility] [place] [id number] 0 Phone: ( 04/18 CMP Album in g/dL 3.5 5.0 4.0 FINAL Marlene Guzmán * [facility] [place], [address] [facility] [id number] 0 04/18 CMP Alkal ine phosp hatas e U/L 36.0 125.0 105 FINAL Marlene Guzmán * [facility], [address] [facility] [id number] 0 04/18 CMP ALT/S GPT U/L 0.0 34.0 35 High FINAL Marelne Guzmán * [facility], [address] [facility] [id number] 0 04/18 CMP AST/S GOT U/L 14.0 36.0 44 High FINAL Marlene Guzmán * [facility], [address] [facility] [id number] 04/18 CMP BUN mg/dL 7.0 17.0 21.0 High FINAL Marlene Guzmán * [facility], [address] [facility] [id number] 04/18 CMP Calci um mg/dL 8.4 10.2 8.8 FINAL Marlene Guzmán * [facility], [address] [facility] [id number] 0 04/18 CMP Chlor nilson mmol/L 96.0 107.0 106 FINAL Marlene Guzmán * [facility], [address] [facility] [id number] 0 04/18 CMP CO2 mmol/L 22.0 30.0 [...] 96 hour stability window. FINAL Marlene Stroud [facility], [facility] [address] [id number] 0 04/18 CMP Creat inine mg/dL 0.66 1.25 0.70 FINAL Marlene Guzmán * [facility], [address] [place] [address] [id number] 0 04/18 CMP GFR estim ate ml/min /1.73m ^2 97.7 GFR is calculate d using the CKD-EPI equation. FINAL Marlene Stroud [facility], [facility] [address] [id number] 0 04/18 CMP Gluco se mg/dL 74.0 100.0 267 High FINAL Marlene Stroud [facility], [facility] [address] [place] [address] [id number] 04/18 CMP Potas sium mmol/L 3.5 5.1 4.0 FINAL Marlene Stroud [facility], [facility] [address] [id number] 0 04/18 CMP Sodiu m mmol/L 137.0 145.0 136 Low FINAL Marlene Stroud [facility], [facility] [address] [id number] 0 04/18 CMP Bilir ubin, total mg/dL 0.2 1.3 1.0 FINAL Marlene Stroud [facility], [address] [facility] [address] [id number] 0 04/18 CMP Total prote in g/dL 6.3 8.2 7.3 FINAL Marlene Guzmán * [facility] [place], [address] [facility] [address] [id number] 0 04/18 [facility] other lab See elastic attacher zigzag d 12/20 [facility] other lab See elastic attacher zigzag d 12/20 [facility] other lab See elastic attacher zigzag d 03/09 Free kappa / lambd a with K/L ratio , serum [place] light chain , free, serum , mg/dL mg/dL 0.33 1.94 4.35 High Test performed at [facility] on a Binding Site Optilite Analyzer that uses a turbidime tric method for analysis. Patient testing should not be performed using multiple methodolo gies due to analytica l variation seen between test methodolo gies. FINAL Marlene Guzmán * [facility] , [address] [facility] [address] [id number] 0 03/09 Free kappa / lambd a with K/L ratio , serum [place] light chain , free, serum , mg/dL mg/dL 0.57 2.63 3.83 High Test performed at [facility] on a Binding Site Optilite Analyzer that uses a turbidime tric method for analysis. Patient testing should not be performed using multiple methodolo gies due to analytica l variation seen between test methodolo gies. FINAL Marlene Guzmán * [facility] , [address] [facility] [address] [id number] 0 03/09 Free kappa / lambd a with K/L ratio , serum K/L light chain ratio , free, serum 0.26 1.65 1.14% FINAL Marlene Guzmán * [facility] , [address] [facility] [address] [id number] 0 03/09 CMP Album in g/dL 3.5 5.0 3.8 FINAL Marlene Guzmán * [facility] , [address] [facility] [id number] 0 03/09 CMP Alkal ine phosp hatas e U/L 36.0 125.0 106 FINAL Marleneanabel Guzmán * [facility] , [address] [facility] [id number] 0 03/09 CMP ALT/S GPT U/L 0.0 34.0 37 High FINAL Marlene Guzmán * [facility] , [address] [facility] [id number] 0 03/09 CMP AST/S GOT U/L 14.0 36.0 36 FINAL Marlene Guzmán * [facility] , [address] [facility] [id number] 0 03/09 CMP BUN mg/dL 7.0 17.0 18.0 High FINAL Marlene Guzmán * [facility] , [address] [facility] [id number] 0 03/09 CMP Calci um mg/dL 8.4 10.2 8.9 FINAL Marleneanabel Guzmán * [facility] , [address] [facility] [id number] 0 03/09 CMP Chlor nilson mmol/L 96.0 107.0 99 FINAL Marleneanabel Guzmán * [facility] , [address] [facility] [id number] 0 03/09 CMP CO2 mmol/L 22.0 30.0 [...] hour stability window. FINAL Marleneanabel Guzmán * [facility] , [address] [facility] [address] [facility] [id number] 0 03/09 CMP Creat inine mg/dL 0.66 1.25 0.70 FINAL Marleneanabel Guzmán * [facility] , [address] [facility] [address] [facility] [id number] 0 03/09 CMP GFR estim ate ml/min /1.73m ^2 97.1 GFR is calculate d using the CKD-EPI equation. FINAL Marleneanabel Guzmán * [facility] , [address] [facility] [address] [facility] [id number] 0 03/09 CMP Gluco se mg/dL 74.0 100.0 363 Criti sami High FINAL Marlene Guzmán * [facility] , [address] [facility] [address] [facility] [id number] 0 03/09 CMP Potas sium mmol/L 3.5 5.1 3.9 FINAL Marlene Ramirez * [facility] , [address] [facility] [address] [facility] [id number] 0 03/09 CMP Sodiu m mmol/L 137.0 145.0 134 Low FINAL Marleneanabel Guzmán * [facility] , [address] [facility] [address] [facility] [id number] 0 03/09 CMP Bilir ubin, total mg/dL 0.2 1.3 1.1 FINAL Marleneanabel Guzmán * [facility] , [address] [facility] [address] [facility] [id number] 0 03/09 CMP Total prote in g/dL 6.3 8.2 7.3 FINAL Marlene Guzmán * [facility] , [address] [facility] [address] [facility] [id number] 0 03/09 CBC w/ auto diff WBC K/uL 3.0 8.9 7.1 FINAL Marlene Guzmán [place] [facility] [place] [facility] , [address] [place] [id number] 0 03/09 CBC w/ auto diff HGB g/dL 11.3 15.2 14.4 FINAL Marlene Guzmán [place] [facility] [place] [facility] , [address] [place] [id number] 0 03/09 CBC w/ auto diff PLT K/uL 113.0 364.0 179 FINAL Marlene Guzmán [place] [facility] , [address] [place] [id number] 0 03/09 CBC w/ auto diff Tammy # (ANC) K/uL 1.6 6.6 4.7 FINAL Marlene Guzmán [facility] [place] [facility] , [address] [place] [id number] 0 03/09 CBC w/ auto diff Tammy % % 43.0 74.0 65.7 FINAL Marlene Guzmán [place] [facility] [place] [facility] , [address] [place] [id number] 0 03/09 CBC w/ auto diff IG % % 0.0 0.5 0.6 High FINAL Marlene Guzmán [place] [facility] [place] [facility] , [address] [place] [id number] 0 03/09 CBC w/ auto diff IG # K/uL 0.0 0.03 0.04 High FINAL Marlene Guzmán [place] [facility] [place] [facility] , [address] [place] [id number] 0 03/09 CBC w/ auto diff LY % % 14.0 41.0 25.8 FINAL Marlene Guzmán [place] [facility] [place] [facility] , [address] [place] [id number] 0 03/09 CBC w/ auto diff MO % % 6.0 15.0 6.2 FINAL Marlene Guzmán [place] [facility] [place] [facility] , [address] [place] [id number] 0 03/09 CBC w/ auto diff EO % % 0.0 7.0 1.1 FINAL Marlene Guzmán [place] [facility] [place] [facility] , [address] [place] [id number] 0 03/09 CBC w/ auto diff BA % % 0.0 2.0 0.6 FINAL Marlene Guzmán [place] [facility] [place] [facility] , [address] [place] [id number] 0 03/09 CBC w/ auto diff LY # K/uL 0.4 3.6 1.8 FINAL Marlene Guzmán [place] [facility] [place] [facility] , [address] [place] [id number] 0 03/09 CBC w/ auto diff MO # K/uL 0.2 1.3 0.4 FINAL Marlene Guzmán [place] [facility] [place] [facility] , [address] [place] [id number] 0 03/09 CBC w/ auto diff EO # K/uL 0.0 0.6 0.1 FINAL Marlene Guzmán [place] [facility] [place] [facility] , [address] [place] [id number] 0 03/09 CBC w/ auto diff BA # K/uL 0.0 0.2 0.0 FINAL Marlene Guzmán [place] [facility] [place] [facility] , [address] [place] [id number] 0 03/09 CBC w/ auto diff NRBC % #/100W BC 0.0 0.2 0.0 FINAL Marlene Guzmán [place] [facility] [place] [facility] , [address] [place] [id number] 0 03/09 CBC w/ auto diff RBC M/uL 3.9 5.1 5.08 FINAL Marlene Guzmán [place] [facility] , [address] [place] [id number] 0 03/09 CBC w/ auto diff HCT % 35.0 48.0 42.9 FINAL Marlene Guzmán [facility] [place] [facility] , [address] [place] [id number] 0 03/09 CBC w/ auto diff MCV fL 80.0 104.0 84.4 FINAL Marlene Guzmán [facility] - [place] [facility] , [address] [place] [id number] 0 03/09 CBC w/ auto diff MCH pg 26.0 35.0 28.3 FINAL Marlene Guzmán [facility] [place] [facility] , [address] [place] [id number] 0 03/09 CBC w/ auto diff MCHC g/dL 30.0 35.0 33.6 FINAL Marlene Guzmán [facility] [place] [facility] , [address] [place] [id number] 0 03/09 CBC w/ auto diff MPV fL 9.5 13.4 9.6 FINAL Marlene Guzmán [place] [facility] , [address] [place] [id number] 0 03/09 CBC w/ auto diff RDW % 11.4 16.1 14.20 FINAL Marlene Guzmán [facility] , [address] [facility] [id number] 0 03/09 Total prote in g/dL 6.3 8.2 7.1 FINAL Marlene Guzmán * [facility] , [address] [facility] [address] [facility] [id number] 0 03/09 Album in, SPE g/dL 3.31 5.31 4.70 FINAL Marlene Guzmán * [facility] , [address] [facility] [address] [id number] 0 03/09 Alpha -1 globu tony g/dL 0.19 0.42 0.23 FINAL Marlene Guzmán * [facility] , [address] [facility] [address] [id number] 0 03/09 Alpha -2 globu tony g/dL 0.44 1.03 0.52 FINAL Marlene Guzmán * [facility] , [address] [facility] [address] [id number] 0 03/09 Beta globu tony g/dL 0.52 1.05 0.80 FINAL Marlene Guzmán * [facility] , [address] [address] [id number] 0 03/09 Gamma globu tony g/dL 0.59 1.46 0.85 FINAL Marlene Guzmán * [facility] , [address] [id number] 0 03/09 Gemma Rodriguez in Lab resul t note Previou sly identif ied parapro teins detecte d in gamma region. Is now 0.3 and 0.4 gm/dL. Interpr eted and signed by Luis Guillermo MD on 025 FINAL Marlene Guzmán * [facility] , [address] [facility] [id number] 0 03/09 M-spi ke, SPE, g/dL g/dL 0.0 0.0 0.3 High FINAL Marlene Guzmán * [facility] , [address] [facility] [id number] 0 03/09 M-spi ke 2, SPE g/dL 0.0 0.0 0.4 High FINAL Marlene Guzmán * [facility] , [address] [facility] [id number] 0 03/09 Immun oglob ulin measu remen t IgG, quant mg/dL 610.0 1616.0 1080.49 Test performed at [facility] on a Binding Site Optilite Analyzer that uses a turbidime tric method for analysis. Patient testing should not be performed using multiple methodolo gies due to analytica l variation seen between test methodolo gies. FINAL Marlene Guzmán * [facility] , [address] [facility] [id number] 0 03/09 Immun oglob ulin measu remen t IgA, quant mg/dL 61.0 348.0 577.26 High Test performed at [facility] on a Binding Site Optilite Analyzer that uses a turbidime tric method for analysis. Patient testing should not be performed using multiple methodolo gies due to analytica l variation seen between test methodolo gies. FINAL Marlene Guzmán * [facility] , [address] [facility] [id number] 0 03/09 Immun oglob ulin measu remen t IgM, quant mg/dL 35.0 242.0 91.00 Test performed at [facility] on a Binding Site Optilite Analyzer that uses a turbidime tric method for analysis. Patient testing should not be performed using multiple methodolo gies due to analytica l variation seen between test methodolo josefina. 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 Malissa Hernandez to see Vero Henry in regard to a recent diagnosis of EIN/CAH. History of Present Illness (Oxygen Therapy Teacher Oncology): 63 y.o.?? * Presented with c/o [...] with myosure * Pathology:?? 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 Anxious, , female with somewhat [...] record:05/23/2019 Last record:05/23/2019; ) Assessment & Plan (Oxygen Therapy Teacher Oncology): 63?? y.o. 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
[2025-07-06 23:27] LABS: Hematocrit* 37.9 % (33.0-51.0); Hemoglobin* 12.8 gm/dL (12.0-16.0); Immature Granulocytes Abs Auto 0.02 K/uL (0.00-0.30); Immature Granulocytes Pct Auto 0.3 %; Lymphocytes Absolute Auto 2.20 K/uL (0.90-2.90); Mean Corpuscular HGB Conc 34 gm/dL (32-36); Mean Corpuscular Hemoglobin 29 pg (26-34); Mean Corpuscular Volume 85 fL (80-100); RDW Coefficient of Variation % 13.8 % (11.5-15.5); Red Blood Count* 4.45 m/uL (4.00-5.20); White Blood Count* 7.25 K/uL (4.50-11.00)
--- OUTSIDE RECORDS SUMMARY | 2025-07-06 23:27 | XMS_ITS ---
Author Name Interface, [id number] lity Address [address] [facility] [address] [place] [address] [facility] Address [address] [facility] [address] [place] [address] Support Name Relationship Address Phone Greg Henry [...] Ordered By Specimen Source Lab Address 11/05 [facility] [place] lab See pulverizer operator d 11/08 Mis other lab See pulverizer operator d 11/22 Color (ua) Yellow FINAL [facility] [place], [address] [facility] [address] [place] [id number] [phone] Phone: () - 11/22 Appea ying (ua) Clear FINAL [facility] [place], [address] [facility] [address] [place] [phone] 0 Phone: () - 11/22 Gluco se (ua), qual 500.0% Abnor mal FINAL [facility] [place], [address] [facility] [address] [place] [phone] Phone: () - 11/22 Bilir ubin (ua) Negativ e FINAL [facility] [place], [address] [facility] [address] [place] [phone] 0 Phone: () - 11/22 Urina lysis , aceto ne or keton e chapo s measu remen t Negativ e FINAL [facility] [place], [address] [facility] [address] [place] [phone] 0 Phone: () - 11/22 Speci fic gravi ty (ua) 1.005 1.02 1.025% Abnor mal FINAL [facility] [place], [address] [facility] [address] [place] [phone] 0 Phone: () - 11/22 Blood (ua) Negativ e FINAL [facility] [place], [address] [facility] [address] [place] [phone] 0 Phone: () - 11/22 pH (ua) 5.0 8.0 6.0% FINAL [facility] [place], [address] [facility] [address] [place] [phone] 0 Phone: () - 11/22 Prote in (ua) Negativ e FINAL [facility] [place], [address] [place] [address] [address] [place] [phone] 0 Phone: () - 11/22 Urobi linog en (ua) 0.2 1.0 0.2% FINAL [facility] [place], [address] [place] [address] [address] [place] [phone] 0 Phone: () - 11/22 Nitri te (ua) Negativ e FINAL [facility] [place], [address] [facility] [address] [place] [phone] 0 Phone: () - 11/22 Leuko cyte jerson ase (ua), qual Negativ e FINAL [facility] [place], [address] [facility] [address] [place] [phone] 0 Phone: () - 11/22 UA comme nt 1 Dipstic k negativ e- Culture ordered per provide r FINAL [facility] [place], [address] [facility] [address] [facility] [id number] [phone] Phone: () - 11/22 Urine cultu re panel CULTU RE, URINE , ROUTI NE SEE NOTE Abnor mal 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 [address] [facility] [id number] 4 12/18 [facility] [place] lab See pulverizer operator d 04/18 Total prote in g/dL 6.3 8.2 6.9 FINAL Marlene Ramirez * [facility], [address] [id number] 0 04/18 Album in, SPE g/dL 3.31 5.31 3.97 FINAL Marlene Guzmán * [facility], [address] [id number] 0 04/18 Alpha -1 globu tony g/dL 0.19 0.42 0.26 FINAL Marlene Guzmán * [facility], [address] [id number] 0 04/18 Alpha -2 globu tony g/dL 0.44 1.03 0.63 FINAL Marlene Guzmán * [facility], [address] [id number] 0 04/18 Beta globu tony g/dL 0.52 1.05 0.95 FINAL Marlene Ramirez * [facility], [address] [id number] 0 04/18 Gamma globu tony g/dL 0.59 1.46 1.10 FINAL Marlene Guzmán * [facility], [address] [id number] 0 04/18 Gemma Rodriguez in Lab resul t note Previou sly identif ied parapro teins detecte d in gamma region. Were 0.3 and 0.4 gm/dL, now 0.3 and 0.3 gm/dL. Interpr eted and signed by Adrienne Swanson MD on 024 FINAL Marlene Guzmán * [facility], [address] [facility] [address] [id number] 0 04/18 M-spi ke, SPE, g/dL g/dL 0.0 0.0 0.3 High FINAL Marlene Guzmán * [facility], [address] [facility] [address] [id number] 0 04/18 M-spi ke 2, SPE g/dL 0.0 0.0 0.3 High FINAL Marleneanabel Guzmán * [facility], [facility] [address] [place] [address] [id number] 0 04/18 Immun oglob ulin measu remen t IgG, quant mg/dL 610.0 1616.0 946.67 Test performed at [facility] on a Binding myContactCard Optilite Analyzer that uses a turbidime tric method for analysis. Patient testing should not be performed using multiple methodolo gies due to analytica l variation seen between test methodolo gies. FINAL Marleneanabel Guzmán * [facility], [facility] [address] [place] [address] [id number] 0 04/18 Immun oglob ulin measu remen t IgA, quant mg/dL 61.0 348.0 493.08 High Test performed at [facility] on a Binding myContactCard Optilite Analyzer that uses a turbidime tric method for analysis. Patient testing should not be performed using multiple methodolo gies due to analytica l variation seen between test methodolo gies. FINAL Marlene Guzmán * [facility], [address] [place] [address] [place] [address] [id number] 0 04/18 Immun oglob ulin measu remen t IgM, quant mg/dL 35.0 242.0 75.62 Test performed at [facility] on a Binding Site Optilite Analyzer that uses a turbidime tric method for analysis. Patient testing should not be performed using multiple methodolo gies due to analytica l variation seen between test methodolo gies. FINAL Marlene Forte a [facility], [facility] [address] [id number] 0 04/18 Free kappa / lambd a with K/L ratio , serum [place] light chain , free, serum , mg/dL mg/dL 0.33 1.94 3.62 High Test performed at [facility] on a Binding Site Optilite Analyzer that uses a turbidime tric method for analysis. Patient testing should not be performed using multiple methodolo gies due to analytica l variation seen between test methodolo gies. FINAL Marlene Rubi a [facility], [address] [facility] [address] [id number] 0 04/18 Free kappa / lambd a with K/L ratio , serum Lambd a light chain , free, serum , mg/dL mg/dL 0.57 2.63 3.13 High Test performed at [facility] on a Binding myContactCard Optilite Analyzer that uses a turbidime tric method for analysis. Patient testing should not be performed using multiple methodolo gies due to analytica l variation seen between test methodolo gies. FINAL Marlene Rubi a [facility], [address] [id number] 0 04/18 Free kappa / lambd a with K/L ratio , serum K/L light chain ratio , free, serum 0.26 1.65 1.16% FINAL Marlene [facility], [address] [id number] 0 04/18 CBC w/ auto diff WBC K/uL 3.0 8.9 7.0 FINAL Marlene Rubi [facility], [address] [facility] [address] [facility] [id number] 0 Phone: () - 04/18 CBC w/ auto diff HGB g/dL 11.3 15.2 14.0 FINAL [facility] [place], [address] [place] [id number] 0 Phone: () - 04/18 CBC w/ auto diff PLT K/uL 113.0 364.0 164 FINAL [facility] [place], [address] [place] [id number] 0 Phone: () - 04/18 CBC w/ auto diff Tammy # (ANC) K/uL 1.6 6.6 4.5 FINAL [facility] - [place], [address] [place] [id number] 0 Phone: () - 04/18 CBC w/ auto diff Tammy % % 43.0 74.0 64.0 FINAL [facility] - [place], [address] [place] [id number] 0 Phone: () - 04/18 CBC w/ auto diff IG % % 0.0 0.5 0.3 FINAL [facility] - [place], [address] [place] [id number] 0 Phone: () - 04/18 CBC w/ auto diff IG # K/uL 0.0 0.03 0.02 FINAL [facility] - [place], [address] [place] [id number] 0 Phone: () - 04/18 CBC w/ auto diff LY % % 14.0 41.0 28.2 FINAL Marlene Rubi [facility] - [place], [address] [place] [id number] 0 Phone: () - 04/18 CBC w/ auto diff MO % % 6.0 15.0 6.0 FINAL Marlene Guzmán [facility] [place], [address] [place] [id number] 0 Phone: () - 04/18 CBC w/ auto diff EO % % 0.0 7.0 1.1 FINAL [facility] - [place], [address] [place] [id number] 0 Phone: () - 04/18 CBC w/ auto diff BA % % 0.0 2.0 0.4 FINAL [facility] - [place], [address] [place] [id number] 0 Phone: () - 04/18 CBC w/ auto diff LY # K/uL 0.4 3.6 2.0 FINAL Marlene Guzmán [facility] [place], [address] [place] [id number] 0 Phone: () - 04/18 CBC w/ auto diff MO # K/uL 0.2 1.3 0.4 FINAL Marlene Ramirez [facility] [place], [address] [place] [id number] 0 Phone: () - 04/18 CBC w/ auto diff EO # K/uL 0.0 0.6 0.1 FINAL Marlene Ramirez [facility] [place], [address] [place] [id number] 0 Phone: () - 04/18 CBC w/ auto diff BA # K/uL 0.0 0.2 0.0 FINAL Marlene Ramirez [facility] [place], [address] [place] [id number] 0 Phone: () - 04/18 CBC w/ auto diff NRBC % #/100W BC 0.0 0.2 0.0 FINAL Marlene Guzmán [facility] [place], [address] [place] [id number] 0 Phone: () - 04/18 CBC w/ auto diff RBC M/uL 3.9 5.1 4.84 FINAL Marlene Guzmán [facility] - [place], [address] [place] [id number] 0 Phone: () - 04/18 CBC w/ auto diff HCT % 35.0 48.0 40.4 FINAL Marlene Rubi a [facility] - [place], [address] [place] [id number] 0 Phone: () - 04/18 CBC w/ auto diff MCV fL 80.0 104.0 83.5 FINAL Marlene [facility] - [place], [address] [place] [id number] 0 Phone: () - 04/18 CBC w/ auto diff MCH pg 26.0 35.0 28.9 FINAL Marlene Rubi a [facility] - [place], [address] [place] [id number] 0 Phone: () - 04/18 CBC w/ auto diff MCHC g/dL 30.0 35.0 34.7 FINAL Marlene Rubi a [facility] - [place], [address] [place] [id number] 0 Phone: () - 04/18 CBC w/ auto diff MPV fL 9.5 13.4 9.7 FINAL Marlene Rubi a [facility] - [place], [address] [place] [id number] 0 Phone: () - 04/18 CBC w/ auto diff RDW % 11.4 16.1 13.80 FINAL Marlene Rubi [facility] - [place], [address] [place] [id number] 0 Phone: () - 04/18 CMP Album in g/dL 3.5 5.0 4.0 FINAL Marlene Guzmán * [facility] [place], [address] [place] [id number] 0 04/18 CMP Alkal ine phosp hatas e U/L 36.0 125.0 105 FINAL Marlene Guzmán * [facility] [place], [address] [facility] [id number] 0 04/18 CMP ALT/S GPT U/L 0.0 34.0 35 High FINAL Marlene Guzmán * [facility], [address] [facility] [id number] 0 04/18 CMP AST/S GOT U/L 14.0 36.0 44 High FINAL Marlene Guzmán * [facility], [address] [facility] [id number] 04/18 CMP BUN mg/dL 7.0 17.0 21.0 High FINAL Marlene Guzmán * [facility], [address] [facility] [id number] 0 04/18 CMP Calci um mg/dL 8.4 10.2 8.8 FINAL Marlene Guzmán * [facility], [address] [facility] [id number] 0 04/18 CMP Chlor nilson mmol/L 96.0 107.0 106 FINAL Marlene Guzmán * [facility], [address] [facility] [id number] 0 04/18 CMP CO2 mmol/L 22.0 30.0 [...] hour stability window. FINAL Marlene Guzmán * [facility], [address] [facility] [id number] 0 04/18 CMP Creat inine mg/dL 0.66 1.25 0.70 FINAL Marlene Guzmán * [facility], [address] [facility] [address] [id number] 0 04/18 CMP GFR estim ate ml/min /1.73m ^2 97.7 GFR is calculate d using the CKD-EPI equation. FINAL Marlene Stroud [facility], [address] [facility] [address] [id number] 0 04/18 CMP Gluco se mg/dL 74.0 100.0 267 High FINAL Marlene Guzmán * [facility], [facility] [address] [id number] 0 04/18 CMP Potas sium mmol/L 3.5 5.1 4.0 FINAL Marlene Guzmán * [facility], [address] [facility] [address] [id number] 0 04/18 CMP Sodiu m mmol/L 137.0 145.0 136 Low FINAL Marlene Guzmán * [facility], [address] [facility] [address] [id number] 0 04/18 CMP Bilir ubin, total mg/dL 0.2 1.3 1.0 FINAL Marlene Guzmán * [facility], [address] [facility] [address] [id number] 0 04/18 CMP Total prote in g/dL 6.3 8.2 7.3 FINAL Marlene Guzmán * [facility], [address] [facility] [address] [id number] 0 04/18 [facility] [place] lab See pulverizer operator d 12/20 Mis other lab See pulverizer operator d 12/20 [facility] other lab See pulverizer operator d 03/09 Free kappa / lambd a with K/L ratio , serum [place] light chain , free, serum , mg/dL mg/dL 0.33 1.94 4.35 High Test performed at [facility] on a Binding Site Optilite Analyzer that uses a turbidime tric method for analysis. Patient testing should not be performed using multiple methodolo gies due to analytica l variation seen between test methodolo gies. FINAL Marlene Guzmán * [facility] , [address] [facility] [address] [facility] [id number] 0 03/09 Free kappa / lambd a with K/L ratio , serum Lambd a light chain , free, serum , mg/dL mg/dL 0.57 2.63 3.83 High Test performed at [facility] on a Binding Site Optilite Analyzer that uses a turbidime tric method for analysis. Patient testing should not be performed using multiple methodolo gies due to analytica l variation seen between test methodolo gies. FINAL Marlene Guzmán * [facility] , [address] [facility] [address] [id number] 0 03/09 Free kappa / lambd a with K/L ratio , serum K/L light chain ratio , free, serum 0.26 1.65 1.14% FINAL Marlene Guzmán * [facility] , [address] [facility] [address] [id number] 0 03/09 CMP Album in g/dL 3.5 5.0 3.8 FINAL Marlene Guzmán * [facility] , [address] [facility] [address] [id number] 0 03/09 CMP Alkal ine phosp hatas e U/L 36.0 125.0 106 FINAL Marlene Guzmán * [facility] , [address] [facility] [address] [facility] [id number] 0 03/09 CMP ALT/S GPT U/L 0.0 34.0 37 High FINAL Marlene Guzmán * [facility] , [address] [facility] [id number] 0 03/09 CMP AST/S GOT U/L 14.0 36.0 36 FINAL Marlene Guzmán * [facility] , [address] [facility] [id number] 0 03/09 CMP BUN mg/dL 7.0 17.0 18.0 High FINAL Marlene Guzmán * [facility] , [address] [facility] [id number] 0 03/09 CMP Calci um mg/dL 8.4 10.2 8.9 FINAL Marlene Guzmán * [facility] , [address] [facility] [id number] 0 03/09 CMP Chlor nilson mmol/L 96.0 107.0 99 FINAL Marlene Guzmán * [facility] , [address] [facility] [id number] 0 03/09 CMP CO2 mmol/L 22.0 30.0 [...] hour stability window. FINAL Marleneanabel Guzmán * [facility] , [address] [facility] [id number] 0 03/09 CMP Creat inine mg/dL 0.66 1.25 0.70 FINAL Marlene Guzmán * [facility] , [address] [facility] [id number] 0 03/09 CMP GFR estim ate ml/min /1.73m ^2 97.1 GFR is calculate d using the CKD-EPI equation. FINAL Marleen Ramirez * [facility] , [address] [facility] [id number] 0 03/09 CMP Gluco se mg/dL 74.0 100.0 363 Criti sami High FINAL Marlene Ramirez * [facility] , [address] [facility] [id number] 0 03/09 CMP Potas sium mmol/L 3.5 5.1 3.9 FINAL Marlene Ramirez * [facility] , [address] [facility] [id number] 0 03/09 CMP Sodiu m mmol/L 137.0 145.0 134 Low FINAL Marlene Ramirez * [facility] , [address] [facility] [id number] 0 03/09 CMP Bilir ubin, total mg/dL 0.2 1.3 1.1 FINAL Marlene Ramirez * [facility] , [address] [facility] [id number] 0 03/09 CMP Total prote in g/dL 6.3 8.2 7.3 FINAL Marlene Guzmán * [facility] , [address] [facility] [id number] 0 03/09 CBC w/ auto diff WBC K/uL 3.0 8.9 7.1 FINAL Marlene Guzmán [place] [facility] [place] [facility] , [address] [place] [id number] 0 03/09 CBC w/ auto diff HGB g/dL 11.3 15.2 14.4 FINAL Marlene Guzmán [place] [facility] [place] [facility] , [address] [place] [id number] 0 03/09 CBC w/ auto diff PLT K/uL 113.0 364.0 179 FINAL Marlene Guzmán [place] [facility] [place] [facility] , [address] [place] [id number] 0 03/09 CBC w/ auto diff Tammy # (ANC) K/uL 1.6 6.6 4.7 FINAL Marlene Guzmán [place] [facility] [place] [facility] , [address] [place] [id number] 0 03/09 CBC w/ auto diff Tammy % % 43.0 74.0 65.7 FINAL Marlene Guzmán [place] [facility] [place] [facility] , [address] [place] [id number] 0 03/09 CBC w/ auto diff IG % % 0.0 0.5 0.6 High FINAL Marlene Guzmán [place] [facility] , [address] [place] [id number] 0 03/09 CBC w/ auto diff IG # K/uL 0.0 0.03 0.04 High FINAL Marlene Guzmán [place] [facility] [place] [facility] , [address] [place] [id number] 0 03/09 CBC w/ auto diff LY % % 14.0 41.0 25.8 FINAL Marlene Guzmán [place] [facility] [place] [facility] , [address] [place] [id number] 0 03/09 CBC w/ auto diff MO % % 6.0 15.0 6.2 FINAL Marlene Guzmán [place] [facility] [place] [facility] , [address] [place] [id number] 0 03/09 CBC w/ auto diff EO % % 0.0 7.0 1.1 FINAL Marlene Guzmán [place] [facility] [place] [facility] , [address] [place] [id number] 0 03/09 CBC w/ auto diff BA % % 0.0 2.0 0.6 FINAL Marlene Guzmán [place] [facility] [place] [facility] , [address] [place] [id number] 0 03/09 CBC w/ auto diff LY # K/uL 0.4 3.6 1.8 FINAL Marlene Guzmán [place] [facility] [place] [facility] , [address] [place] [id number] 0 03/09 CBC w/ auto diff MO # K/uL 0.2 1.3 0.4 FINAL Marlene Guzmán [place] [facility] [place] [facility] , [address] [place] [id number] 0 03/09 CBC w/ auto diff EO # K/uL 0.0 0.6 0.1 FINAL Marlene Guzmán [place] [facility] [place] [facility] , [address] [place] [id number] 0 03/09 CBC w/ auto diff BA # K/uL 0.0 0.2 0.0 FINAL Marlene Guzmán [place] [facility] [place] [facility] , [address] [place] [id number] 0 03/09 CBC w/ auto diff NRBC % #/100W BC 0.0 0.2 0.0 FINAL Marlene Guzmán [place] [facility] [place] [facility] , [address] [place] [id number] 0 03/09 CBC w/ auto diff RBC M/uL 3.9 5.1 5.08 FINAL Marlene Guzmán [place] [facility] [place] [facility] , [address] [place] [id number] 0 03/09 CBC w/ auto diff HCT % 35.0 48.0 42.9 FINAL Marlene Guzmán [place] [facility] [place] [facility] , [address] [place] [id number] 0 03/09 CBC w/ auto diff MCV fL 80.0 104.0 84.4 FINAL Marlene Guzmán [place] [facility] [place] [facility] , [address] [place] [id number] 0 03/09 CBC w/ auto diff MCH pg 26.0 35.0 28.3 FINAL Marlene Guzmán [place] [facility] [place] [facility] , [address] [place] [id number] 0 03/09 CBC w/ auto diff MCHC g/dL 30.0 35.0 33.6 FINAL Marlene Guzmán [place] [facility] , [address] [place] [id number] 0 03/09 CBC w/ auto diff MPV fL 9.5 13.4 9.6 FINAL Marlene Guzmán [place] [facility] [place] [facility] , [address] [place] [id number] 0 03/09 CBC w/ auto diff RDW % 11.4 16.1 14.20 FINAL Marlene Guzmán [place] [facility] [place] [facility] , [address] [place] [id number] 0 03/09 Total prote in g/dL 6.3 8.2 7.1 FINAL Marlene Guzmán * [place] [facility] [place] [facility] , [address] [place] [id number] 0 03/09 Album in, SPE g/dL 3.31 5.31 4.70 FINAL Marlene Guzmán * [facility] , [address] [address] [id number] 0 03/09 Alpha -1 globu tony g/dL 0.19 0.42 0.23 FINAL Marlene Guzmán * [facility] , [address] [facility] [address] [facility] [id number] 0 03/09 Alpha -2 globu tony g/dL 0.44 1.03 0.52 FINAL Marlene Guzmán * [facility] , [address] [id number] 0 03/09 Beta globu tony g/dL 0.52 1.05 0.80 FINAL Marlene Guzmán * [facility] , [address] [facility] [address] [id number] 0 03/09 Gamma globu tony g/dL 0.59 1.46 0.85 FINAL Marlene Guzmán * [facility] , [address] [id number] 0 03/09 Elect Gemma layton in Lab resul t note Previou sly identif ied parapro teins detecte d in gamma region. Is now 0.3 and 0.4 gm/dL. Interpr eted and signed by Luis Guillermo MD on 025 FINAL Marlene Guzmán * [facility] , [address] [facility] [id number] 0 03/09 M-spi ke, SPE, g/dL g/dL 0.0 0.0 0.3 High FINAL Marlene Guzmán * [facility] , [address] [facility] [address] [id number] 0 03/09 M-spi ke 2, SPE g/dL 0.0 0.0 0.4 High FINAL Marlene Guzmán * [facility] , [address] [facility] [id number] 0 03/09 Immun oglob ulin measu remen t IgG, quant mg/dL 610.0 1616.0 1080.49 Test performed at [facility] on a Binding Site Optilite Analyzer that uses a turbidime tric method for analysis. Patient testing should not be performed using multiple methodolo gies due to analytica l variation seen between test methodolo gies. FINAL Marlene Ramirez * [facility] [facility] , [address] [facility] [id number] 0 03/09 Immun oglob ulin measu remen t IgA, quant mg/dL 61.0 348.0 577.26 High Test performed at [facility] on a Binding Site Optilite Analyzer that uses a turbidime tric method for analysis. Patient testing should not be performed using multiple methodolo gies due to analytica l variation seen between test methodolo gies. FINAL Marlene Ramirez * [facility] , [address] [facility] [id number] 0 03/09 Immun oglob ulin measu remen t IgM, quant mg/dL 35.0 242.0 91.00 Test performed at [facility] on a Binding Site Optilite Analyzer that uses a turbidime tric method for analysis. Patient testing should not be performed using multiple methodolo gies due to analytica l variation seen between test methodolo gies. FINAL Marlene Guzmán * [facility] , [address] [facility] [id number] 0 04/03 [facility] [place] See attache malave Medications Date [...] 04/10/2025 Pain Scale 7.00 Notes Section * EHS ENGINEER Follow-Up GYNECOLOGIC ONCOLOGY FOLLOW-UP VISIT Patient Name: JOSE ANGEL HENRY : 1960 Date of Visit: 10/11/2023 Referring Provider: Malissa Hernandez MD (SAND BLASTER) Attending: Marlene Guzmán (Hematology/Oncology) Chief Complaint (Protective Services Social Worker Oncology): 6 week post op?? History of Present Illness (Protective Services Social Worker Oncology): 63 y.o.?? 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 Genetic Testing (Protective Services Social Worker Oncology): Interval History (Protective Services Social Worker Oncology) She was transferred from [facility] to [facility] psychiatric perez after surgery from 09/03-09/09/23.?? 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 Anxious, , female with somewhat [...] record:05/23/2019 Last record:05/23/2019; ) Assessment & Plan (Protective Services Social Worker Oncology): 63?? y.o. 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 Pathology benign. Reviewedpathology, operative findings, expected recovery.?? She is recovering well, no further restrictions.?? She can follow up with PCP/registered sales assistant as needed.? Pain Care Management: Pain Scale: [...] Electronically signed by Judy RAJPUT 10/11/2023 15:27 FROZEN YOGURT MAKER
--- OUTSIDE RECORDS SUMMARY | 2025-07-06 23:27 | XMS_ITS ---
Author Name Interface, S0Yuthtbr lity Address [address] [facility] [address] [place] [address] [facility] Address [address] [facility] [address] [place] [address] Support Name Relationship Address Phone Greg Henry [...] Ordered By Specimen Source Lab Address 11/05 [facility] other lab See elastic attacher overlock d 11/08 [facility] other lab See elastic attacher overlock d 11/22 Color (ua) Yellow FINAL Hafsa Bud [place] [facility] [place], [address] [facility] [address] [place] [id number] 0 Phone: () - 11/22 Appea ying (ua) Clear FINAL Hafsaanabel [facility]i [facility] - [place], [address] [place] [address] [address] [place] [id number] 0 Phone: () - 11/22 Gluco se (ua), qual 500.0% Abnor mal FINAL H[facility]saanabel [facility] [place], [address] [place] [address] [address] [place] [id number] 0 Phone: () - 11/22 Bilir ubin (ua) Negativ e FINAL Hafsaanabel [facility] - [place], [address] [place] [address] [address] [place] [phone] 0 Phone: () - 11/22 Urina lysis , aceto ne or keton e chapo s measu remen t Negativ e FINAL [facility]saanabel [facility] - [place], [address] [place] [address] [address] [place] [phone] 0 Phone: () - 11/22 Speci fic gravi ty (ua) 1.005 1.02 1.025% Abnor mal FINAL H[facility]saanabel [facility] [place], [address] [place] [address] [address] [place] [id number] 0 Phone: () - 11/22 Blood (ua) Negativ e FINAL [facility]saanabel [facility] - [place], [address] [place] [address] [address] [place] [id number] 0 Phone: () - 11/22 pH (ua) 5.0 8.0 6.0% FINAL Hafsaanabel [facility] [place], [address] [place] [address] [address] [place] [id number] 0 Phone: () - 11/22 Prote in (ua) Negativ e FINAL Hafsaanabel [facility] - [place], [address] [place] [address] [address] [place] [phone] 0 Phone: () - 11/22 Urobi linog en (ua) 0.2 1.0 0.2% FINAL [facility]afsaanabel [facility] [place], [address] [place] [address] 210 [facility] [phone] 0 Phone: () - 11/22 Nitri te (ua) Negativ e FINAL Hafsa Rubi a [facility], [address] [place] [address] 210 [facility] [phone] 0 Phone: () - 11/22 Leuko cyte jerson ase (ua), qual Negativ e FINAL Hafsa Rubi [facility], [address] [place] [address] [phone] 0 Phone: () - 11/22 UA comme nt 1 Dipstic k negativ e- Culture ordered per provide r FINAL Hafsa Rubi [facility], [address] [place] [address] [phone] Phone: () - 11/22 Urine cultu re panel CULTU RE, URINE , ROUTI NE SEE NOTE Abnor mal CULTURE, URINE, ROUTINEMi crozer Number: [id number] est Status: FinalSpec imen Source: UrineSpec imen [...] f. FINAL Hafsaanabel Farrell [facility] [employer] [facility] [address] [facility] [id number] 4 12/18 [facility] other lab See d 04/18 Total prote in g/dL 6.3 8.2 6.9 FINAL Marlene Guzmán * [facility] [address] [place] [address] [id number] 0 04/18 Album in, SPE g/dL 3.31 5.31 3.97 FINAL Marlene Guzmán * [facility] [place] [facility] [address] [place] [address] [id number] 0 04/18 Alpha -1 globu tony g/dL 0.19 0.42 0.26 FINAL Marlene Guzmán * [facility], [address] [facility] [address] [id number] 0 04/18 Alpha -2 globu tony g/dL 0.44 1.03 0.63 FINAL Marlene Guzmán * [facility], [address] [facility] [facility] [address] [id number] 0 04/18 Beta globu tony g/dL 0.52 1.05 0.95 FINAL Marlene Guzmán * [facility], [address] [facility] [facility] [address] [id number] 0 04/18 Gamma globu tony g/dL 0.59 1.46 1.10 FINAL Marlene Guzmán * [facility] [place] [facility] [address] [place] [address] [id number] 0 04/18 Elect abiola jackson Gemma in Lab resul t note Previou sly identif ied parapro teins detecte d in gamma region. Were 0.3 and 0.4 gm/dL, now 0.3 and 0.3 gm/dL. Interpr eted and signed by Adrienne Swanson MD on 024 FINAL Marlene Guzmán * [facility] [place] [facility] [address] [place] [address] [id number] 0 04/18 M-spi ke, SPE, g/dL g/dL 0.0 0.0 0.3 High FINAL Marlene Guzmán * [facility], [address] [facility] [address] [id number] 0 04/18 M-spi ke 2, SPE g/dL 0.0 0.0 0.3 High FINAL Marlene Guzmán * [facility] [place] [facility] [address] [place] [address] [id number] 0 04/18 Immun oglob ulin measu remen t IgG, quant mg/dL 610.0 1616.0 946.67 Test performed at [facility] on a Binding Site Optilite Analyzer that uses a turbidime tric method for analysis. Patient testing should not be performed using multiple methodreal gikim due to analytica l variation seen between test methodreal rocha. FINAL Marlene Guzmán * [facility] [place] [facility] [address] [place] [address] [id number] 0 04/18 Immun oglob ulin measu remen t IgA, quant mg/dL 61.0 348.0 493.08 High Test performed at [facility] on a Binding Site Optilite Analyzer that uses a turbidime tric method for analysis. Patient testing should not be performed using multiple methodolo gies due to analytica l variation seen between test methodolo gies. FINAL Marlene Stroud [facility] [address] [place] [address] [id number] 0 04/18 Immun oglob ulin measu remen t IgM, quant mg/dL 35.0 242.0 75.62 Test performed at [facility] on a Binding Site Optilite Analyzer that uses a turbidime tric method for analysis. Patient testing should not be performed using multiple methodolo gies due to analytica l variation seen between test methodolo gies. FINAL Marlene Stroud [facility] a [address] [place] [address] [id number] 0 04/18 Free kappa / lambd a with K/L ratio , serum [place] light chain , free, serum , mg/dL mg/dL 0.33 1.94 3.62 High Test performed at [facility] on a Binding Site Optilite Analyzer that uses a turbidime tric method for analysis. Patient testing should not be performed using multiple methodolo gies due to analytica l variation seen between test methodolo gies. FINAL Marlene Guzmán * Jann a [address] [place] [address] [id number] 0 04/18 Free kappa / lambd a with K/L ratio , serum Lambd a light chain , free, serum , mg/dL mg/dL 0.57 2.63 3.13 High Test performed at [facility] on a Binding Site Optilite Analyzer that uses a turbidime tric method for analysis. Patient testing should not be performed using multiple methodolo gies due to analytica l variation seen between test methodolo gies. FINAL Marlene Stroud [facility] [address] [place] [address] [id number] 0 04/18 Free kappa / lambd a with K/L ratio , serum K/L light chain ratio , free, serum 0.26 1.65 1.16% FINAL Marlene Guzmán * [facility] [place], [address] [facility] [place] [id number] 0 04/18 CBC w/ auto diff WBC K/uL 3.0 8.9 7.0 FINAL Marlene [facility] - [place], [address] [place] [id number] 0 Phone: () - 04/18 CBC w/ auto diff HGB g/dL 11.3 15.2 14.0 FINAL Marlene Rubi a [facility] - [place], [address] [place] [id number] 0 Phone: () - 04/18 CBC w/ auto diff PLT K/uL 113.0 364.0 164 FINAL Marlene Rubi a [facility] - [place], [address] [place] [id number] 0 Phone: () - 04/18 CBC w/ auto diff Tammy # (ANC) K/uL 1.6 6.6 4.5 FINAL Marlene [facility] - [place], [address] [place] [id number] 0 Phone: () - 04/18 CBC w/ auto diff Tammy % % 43.0 74.0 64.0 FINAL Marlene [facility] - [place], [address] [place] [id number] 0 Phone: () - 04/18 CBC w/ auto diff IG % % 0.0 0.5 0.3 FINAL Marlene Rubi a [facility] - [place], [address] [place] [id number] 0 Phone: () - 04/18 CBC w/ auto diff IG # K/uL 0.0 0.03 0.02 FINAL Marlene Rubi a [facility] - [place], [address] [place] [id number] 0 Phone: () - 04/18 CBC w/ auto diff LY % % 14.0 41.0 28.2 FINAL Marlene pagan [facility] - [place], [address] [place] [id number] 0 Phone: () - 04/18 CBC w/ auto diff MO % % 6.0 15.0 6.0 FINAL Marlene pagan [facility] - [place], [address] [place] [id number] 0 Phone: () - 04/18 CBC w/ auto diff EO % % 0.0 7.0 1.1 FINAL Marlene pagan [facility] - [place], [address] [place] [id number] 0 Phone: () - 04/18 CBC w/ auto diff BA % % 0.0 2.0 0.4 FINAL Marlene [facility] - [place], [address] [place] [id number] 0 Phone: () - 04/18 CBC w/ auto diff LY # K/uL 0.4 3.6 2.0 FINAL Marlene [facility] - [place], [address] [place] [id number] 0 Phone: () - 04/18 CBC w/ auto diff MO # K/uL 0.2 1.3 0.4 FINAL Marlene [facility] - [place], [address] [place] [id number] 0 Phone: () - 04/18 CBC w/ auto diff EO # K/uL 0.0 0.6 0.1 FINAL Marlene [facility] - [place], [address] [place] [id number] 0 Phone: () - 04/18 CBC w/ auto diff BA # K/uL 0.0 0.2 0.0 FINAL Marlene [facility] - [place], [address] [place] [id number] 0 Phone: () - 04/18 CBC w/ auto diff NRBC % #/100W BC 0.0 0.2 0.0 FINAL Marlene [facility] - [place], [address] [place] [id number] 0 Phone: () - 04/18 CBC w/ auto diff RBC M/uL 3.9 5.1 4.84 FINAL Marlene [facility] - [place], [address] [place] [id number] 0 Phone: () - 04/18 CBC w/ auto diff HCT % 35.0 48.0 40.4 FINAL Marlene Ramirez [facility] - [place], [address] [place] [id number] 0 Phone: () - 04/18 CBC w/ auto diff MCV fL 80.0 104.0 83.5 FINAL Marlene Ramirez [facility] - [place], [address] [place] [id number] 0 Phone: () - 04/18 CBC w/ auto diff MCH pg 26.0 35.0 28.9 FINAL Marlene Guzmán [facility] [place], [address] [place] [id number] 0 Phone: () - 04/18 CBC w/ auto diff MCHC g/dL 30.0 35.0 34.7 FINAL Marlene Guzmán [facility] - [place], [address] [place] [id number] 0 Phone: () - 04/18 CBC w/ auto diff MPV fL 9.5 13.4 9.7 FINAL Marlene Guzmán [facility] - [place], [address] [place] [id number] 0 Phone: () - 04/18 CBC w/ auto diff RDW % 11.4 16.1 13.80 FINAL Marlene Guzmán [facility] [facility] [place], [address] [facility] [place] [id number] 0 Phone: ( 04/18 CMP Album in g/dL 3.5 5.0 4.0 FINAL Marlene Guzmán * [facility] [place], [address] [facility] [id number] 0 04/18 CMP Alkal ine phosp hatas e U/L 36.0 125.0 105 FINAL Marlene Guzmán * [facility], [address] [facility] [id number] 0 04/18 CMP ALT/S GPT U/L 0.0 34.0 35 High FINAL Marlene Guzmán * [facility], [address] [facility] [id number] 0 04/18 CMP AST/S GOT U/L 14.0 36.0 44 High FINAL Marlene Guzmán * [facility], [address] [facility] [id number] 0 04/18 CMP BUN mg/dL 7.0 17.0 21.0 High FINAL Marlene Guzmán * [facility], [address] [facility] [id number] 0 04/18 CMP Calci um mg/dL 8.4 10.2 8.8 FINAL Marlene Guzmán * [facility], [address] [facility] [id number] 0 04/18 CMP Chlor nilson mmol/L 96.0 107.0 106 FINAL Marlene Guzmán * [facility], [address] [facility] [id number] 0 04/18 CMP CO2 mmol/L 22.0 30.0 [...] 96 hour stability window. FINAL Marlene Stroud [facility] [place] [facility] [address] [id number] 0 04/18 CMP Creat inine mg/dL 0.66 1.25 0.70 FINAL Marlene Guzmán * [facility], [address] [place] [address] [id number] 0 04/18 CMP GFR estim ate ml/min /1.73m ^2 97.7 GFR is calculate d using the CKD-EPI equation. FINAL Marlene Stroud [facility] [place] [facility] [address] [id number] 0 04/18 CMP Gluco se mg/dL 74.0 100.0 267 High FINAL Marlene Stroud [facility] [place] [facility] [address] [place] [address] [id number] 0 04/18 CMP Potas sium mmol/L 3.5 5.1 4.0 FINAL Marlene Stroud [facility] [place] [facility] [address] [id number] 0 04/18 CMP Sodiu m mmol/L 137.0 145.0 136 Low FINAL Marlene Stroud [facility] [place] [facility] [address] [id number] 0 04/18 CMP Bilir ubin, total mg/dL 0.2 1.3 1.0 FINAL Marlene Stroud [facility], [address] [facility] [address] [id number] 0 04/18 CMP Total prote in g/dL 6.3 8.2 7.3 FINAL Marlene Guzmán * [facility] [place], [address] [facility] [address] [id number] 0 04/18 [facility] other lab See elastic attacher overlock d 12/20 [facility] other lab See elastic attacher overlock d 12/20 [facility] other lab See elastic attacher overlock d 03/09 Free kappa / lambd a with K/L ratio , serum [place] light chain , free, serum , mg/dL mg/dL 0.33 1.94 4.35 High Test performed at [facility] on a Binding Site Optilite Analyzer that uses a turbidime tric method for analysis. Patient testing should not be performed using multiple methodolo gies due to analytica l variation seen between test methodolo gies. FINAL Marlene Guzmán * [facility] , [address] [facility] [address] [id number] 0 03/09 Free kappa / lambd a with K/L ratio , serum Lambd a light chain , free, serum , mg/dL mg/dL 0.57 2.63 3.83 High Test performed at [facility] on a Binding Site Optilite Analyzer that uses a turbidime tric method for analysis. Patient testing should not be performed using multiple methodolo gies due to analytica l variation seen between test methodolo gies. FINAL Marlene Guzmán * [facility] , [address] [facility] [address] [id number] 0 03/09 Free kappa / lambd a with K/L ratio , serum K/L light chain ratio , free, serum 0.26 1.65 1.14% FINAL Marlene Guzmán * [facility] , [address] [facility] [address] [id number] 0 03/09 CMP Album in g/dL 3.5 5.0 3.8 FINAL Marlene Guzmán * [facility] , [address] [facility] [id number] 0 03/09 CMP Alkal ine phosp hatas e U/L 36.0 125.0 106 FINAL Marleneanabel Guzmán * [facility] , [address] [facility] [id number] 0 03/09 CMP ALT/S GPT U/L 0.0 34.0 37 High FINAL Marlene Guzmán * [facility] , [address] [facility] [id number] 0 03/09 CMP AST/S GOT U/L 14.0 36.0 36 FINAL Marlene Guzmán * [facility] , [address] [facility] [id number] 0 03/09 CMP BUN mg/dL 7.0 17.0 18.0 High FINAL Marlene Guzmán * [facility] , [address] [facility] [id number] 0 03/09 CMP Calci um mg/dL 8.4 10.2 8.9 FINAL Marleneanabel Guzmán * [facility] , [address] [facility] [id number] 0 03/09 CMP Chlor nilson mmol/L 96.0 107.0 99 FINAL Marleneanabel Guzmán * [facility] , [address] [facility] [id number] 0 03/09 CMP CO2 mmol/L 22.0 30.0 [...] hour stability window. FINAL Marleneanabel Guzmán * [facility] , [address] [facility] [address] [facility] [id number] 0 03/09 CMP Creat inine mg/dL 0.66 1.25 0.70 FINAL Marleneanabel Guzmán * [facility] , [address] [facility] [address] [facility] [id number] 0 03/09 CMP GFR estim ate ml/min /1.73m ^2 97.1 GFR is calculate d using the CKD-EPI equation. FINAL Marleneanabel Guzmán * [facility] , [address] [facility] [address] [facility] [id number] 0 03/09 CMP Gluco se mg/dL 74.0 100.0 363 Criti sami High FINAL Marlene Guzmán * [facility] , [address] [facility] [address] [facility] [id number] 0 03/09 CMP Potas sium mmol/L 3.5 5.1 3.9 FINAL Marlene Ramirez * [facility] , [address] [facility] [address] [facility] [id number] 0 03/09 CMP Sodiu m mmol/L 137.0 145.0 134 Low FINAL Marleneanabel Guzmán * [facility] , [address] [facility] [address] [facility] [id number] 0 03/09 CMP Bilir ubin, total mg/dL 0.2 1.3 1.1 FINAL Marleneanabel Guzmán * [facility] , [address] [facility] [address] [facility] [id number] 0 03/09 CMP Total prote in g/dL 6.3 8.2 7.3 FINAL Marlene Guzmán * [facility] , [address] [facility] [address] [facility] [id number] 0 03/09 CBC w/ auto diff WBC K/uL 3.0 8.9 7.1 FINAL Marlene Guzmán [place] [facility] [place] [facility] , [address] [place] [id number] 0 03/09 CBC w/ auto diff HGB g/dL 11.3 15.2 14.4 FINAL Marlene Guzmán [place] [facility] [place] [facility] , [address] [place] [id number] 0 03/09 CBC w/ auto diff PLT K/uL 113.0 364.0 179 FINAL Marlene Guzmán [place] [facility] [place] [facility] , [address] [place] [id number] 0 03/09 CBC w/ auto diff Tammy # (ANC) K/uL 1.6 6.6 4.7 FINAL Marlene Guzmán [facility] [place] [facility] , [address] [place] [id number] 0 03/09 CBC w/ auto diff Tammy % % 43.0 74.0 65.7 FINAL Marlene Guzmán [place] [facility] [place] [facility] , [address] [place] [id number] 0 03/09 CBC w/ auto diff IG % % 0.0 0.5 0.6 High FINAL Marlene Guzmán [place] [facility] [place] [facility] , [address] [place] [id number] 0 03/09 CBC w/ auto diff IG # K/uL 0.0 0.03 0.04 High FINAL Marlene Guzmán [place] [facility] [place] [facility] , [address] [place] [id number] 0 03/09 CBC w/ auto diff LY % % 14.0 41.0 25.8 FINAL Marlene Guzmán [place] [facility] [place] [facility] , [address] [place] [id number] 0 03/09 CBC w/ auto diff MO % % 6.0 15.0 6.2 FINAL Marlene Guzmán [place] [facility] [place] [facility] , [address] [place] [id number] 0 03/09 CBC w/ auto diff EO % % 0.0 7.0 1.1 FINAL Marlene Guzmán [place] [facility] [place] [facility] , [address] [place] [id number] 0 03/09 CBC w/ auto diff BA % % 0.0 2.0 0.6 FINAL Marlene Guzmán [place] [facility] [place] [facility] , [address] [place] [id number] 0 03/09 CBC w/ auto diff LY # K/uL 0.4 3.6 1.8 FINAL Marlene Guzmán [place] [facility] [place] [facility] , [address] [place] [id number] 0 03/09 CBC w/ auto diff MO # K/uL 0.2 1.3 0.4 FINAL Marlene Guzmán [place] [facility] [place] [facility] , [address] [place] [id number] 0 03/09 CBC w/ auto diff EO # K/uL 0.0 0.6 0.1 FINAL Marlene Guzmán [place] [facility] [place] [facility] , [address] [place] [id number] 0 03/09 CBC w/ auto diff BA # K/uL 0.0 0.2 0.0 FINAL Marlene Guzmán [place] [facility] [place] [facility] , [address] [place] [id number] 0 03/09 CBC w/ auto diff NRBC % #/100W BC 0.0 0.2 0.0 FINAL Marlene Guzmán [place] [facility] [place] [facility] , [address] [place] [id number] 0 03/09 CBC w/ auto diff RBC M/uL 3.9 5.1 5.08 FINAL Marlene Guzmán [place] [facility] [place] [facility] , [address] [place] [id number] 0 03/09 CBC w/ auto diff HCT % 35.0 48.0 42.9 FINAL Marlene Guzmán [facility] [place] [facility] , [address] [place] [id number] 0 03/09 CBC w/ auto diff MCV fL 80.0 104.0 84.4 FINAL Marlene Guzmán [facility] [place] [facility] , [address] [place] [id number] 0 03/09 CBC w/ auto diff MCH pg 26.0 35.0 28.3 FINAL Marlene Guzmán [facility] [place] [facility] , [address] [place] [id number] 0 03/09 CBC w/ auto diff MCHC g/dL 30.0 35.0 33.6 FINAL Marlene Guzmán [facility] [place] [facility] , [address] [place] [id number] 0 03/09 CBC w/ auto diff MPV fL 9.5 13.4 9.6 FINAL Marlene Guzmán [place] [facility] [place] [facility] , [address] [place] [id number] 0 03/09 CBC w/ auto diff RDW % 11.4 16.1 14.20 FINAL Marlene Guzmán [facility] , [address] [facility] [id number] 0 03/09 Total prote in g/dL 6.3 8.2 7.1 FINAL Marlene Guzmán * [facility] , [address] [facility] [address] [facility] [id number] 0 03/09 Album in, SPE g/dL 3.31 5.31 4.70 FINAL Marlene Guzmán * [facility] , [address] [facility] [address] [id number] 0 03/09 Alpha -1 globu tony g/dL 0.19 0.42 0.23 FINAL Marlene Guzmán * [facility] , [address] [facility] [address] [id number] 0 03/09 Alpha -2 globu tony g/dL 0.44 1.03 0.52 FINAL Marlene Guzmán * [facility] , [address] [facility] [address] [id number] 0 03/09 Beta globu tony g/dL 0.52 1.05 0.80 FINAL Marlene Guzmán * [facility] , [address] [facility] [address] [id number] 0 03/09 Gamma globu tony g/dL 0.59 1.46 0.85 FINAL Marlene Guzmán * [facility] , [address] [facility] [address] [id number] 0 03/09 Gemma Rodriguez in Lab resul t note Previou sly identif ied parapro teins detecte d in gamma region. Is now 0.3 and 0.4 gm/dL. Interpr eted and signed by Luis Guillermo MD on 025 FINAL Marlene Guzmán * [facility] , [address] [facility] [id number] 0 03/09 M-spi ke, SPE, g/dL g/dL 0.0 0.0 0.3 High FINAL Marlene Guzmán * [facility] , [address] [facility] [id number] 0 03/09 M-spi ke 2, SPE g/dL 0.0 0.0 0.4 High FINAL Marlene Guzmán * [facility] , [address] [facility] [id number] 0 03/09 Immun oglob ulin measu remen t IgG, quant mg/dL 610.0 1616.0 1080.49 Test performed at [facility] on a Binding Site Optilite Analyzer that uses a turbidime tric method for analysis. Patient testing should not be performed using multiple methodolo gies due to analytica l variation seen between test methodolo gies. FINAL Marlene Guzmán * [facility] , [address] [facility] [id number] 0 03/09 Immun oglob ulin measu remen t IgA, quant mg/dL 61.0 348.0 577.26 High Test performed at [facility] on a Binding Site Optilite Analyzer that uses a turbidime tric method for analysis. Patient testing should not be performed using multiple methodolo gies due to analytica l variation seen between test methodolo gies. FINAL Marlene Guzmán * [facility] , [address] [facility] [id number] 0 03/09 Immun oglob ulin measu remen t IgM, quant mg/dL 35.0 242.0 91.00 Test performed at [facility] on a Binding Site Optilite Analyzer that uses a turbidime tric method for analysis. Patient testing should not be performed using multiple methodolo gies due to analytica l variation seen between test methodolo josefina. FINAL Marlene Guzmán * [facility] , [address] [facility] [id number] 0 04/03 [facility] other lab See attache malave [...] 04/10/2025 Body Temperature 97.50 Notes Section * [employer] Onc Consult Note (Amended) GYNECOLOGIC ONCOLOGY CONSULT Patient Name: VERO HENRY Patient : 1960 Patient Referring Physician: Malissa Hernandez MD ([employer]) Primary GYNOncologist: Marlene Guzmán (Hematology/Oncology) Date of Service: 08/03/2023 Reason for Consult: I was asked by Dr. Malissa Hernandez to see Vero Henry in regard to a recent diagnosis of EIN/CAH. History of Present Illness ([employer]): 63 y.o.?? * Presented with c/o [...] with myosure * Pathology:?? EIN Genetic Testing ([employer] [facility]): Review of Systems: See intake ROS [...] Hysteroscopy with myosure, D & C 06/28/23 mover History: - 3 , 1 SAb Allergies: [...] Fluocinonide Topical Cream 0.05 % PRN * [place] (Hydrocodone-Acetaminophen Oral 5 mg-325 mg) 5-325 mg [...] BSA: 2.36, BMI: 47.71 kg/m2 Physical Exam ([employer] [facility]): General:?? Anxious, , female with somewhat [...] record:05/23/2019 Last record:05/23/2019; ) Assessment & Plan ([employer] [facility]): 63?? y.o. with abnormal uterine bleeding/PMB [...] signed by Abbie Gallo MD 08/03/2023 12:46 [employer]
--- OUTSIDE RECORDS SUMMARY | 2025-07-06 23:28 | XMS_ITS ---
Author Name Interface, [id number] lity Address [address] [facility] [address] [place] [address] [facility] Address [address] [facility] [address] [place] [address] Support Name Relationship Address Phone Greg Ch [...] FINAL [facility] [place], [address] [place] [address] 210 [facility] [phone] Phone: () - 11/22 Appea ying (ua) Clear FINAL [facility]ana[facility] [place], [address] [place] [address] 210 [facility] [phone] Phone: () - 11/22 Gluco se (ua), qual 500.0% Abnor mal FINAL [facility] [place], [address] [facility] 210 [facility] [phone] 0 Phone: () - 11/22 Bilir ubin (ua) Negativ e FINAL [facility] [place], [address] [place] [address] 210 [facility] [phone] Phone: () - 11/22 Urina lysis , aceto ne or keton e chapo s measu remen t Negativ e FINAL [facility] [place], [address] [facility] [address] [place] [phone] 0 Phone: () - 11/22 Speci fic gravi ty (ua) 1.005 1.02 1.025% Abnor mal FINAL [facility] [place], [address] [facility] [address] [place] [phone] 0 Phone: () - 11/22 Blood (ua) Negativ e FINAL [facility] [place], [address] [place] [address] 210 [place] [phone] 0 Phone: () - 11/22 pH (ua) 5.0 8.0 6.0% FINAL [facility] [place], [address] [place] [address] 210 [facility] [phone] 0 Phone: () - 11/22 Prote in (ua) Negativ e FINAL [facility] [place], [address] [place] [address] 210 [place] [phone] 0 Phone: () - 11/22 Urobi linog en (ua) 0.2 1.0 0.2% FINAL [facility] [place], [address] [place] [address] 210 [place] [phone] 0 Phone: () - 11/22 Nitri te (ua) Negativ e FINAL [facility] [place], [address] [place] [address] 210 [place] [phone] 0 Phone: () - 11/22 Leuko cyte jerson ase (ua), qual Negativ e FINAL [facility]sa [facility] [place], [address] [place] [address] 210 [place] [phone] 0 Phone: () - 11/22 UA comme nt 1 Dipstic k negativ e- Culture ordered per provide r FINAL [facility]sa [facility] [place], [address] [place] [address] 210 [place] [phone] 0 Phone: () - 11/22 Urine cultu re panel CULTU RE, URINE , ROUTI NE SEE NOTE Abnor mal CULTURE, URINE, ROUTINEMi cross roller Number: [id number] est Status: FinalSpec imen Source: UrineSpec imen [...] f. FINAL Hafsa Bud [facility], [facility] [address] [facility] [phone] 4 12/18 [facility] other lab See waiter/waitress club d 04/18 Total prote in g/dL 6.3 8.2 6.9 FINAL Marlene Guzmán * [facility], [address] [facility] [address] [place] [address] [id number] 04/18 Album in, SPE g/dL 3.31 5.31 3.97 FINAL Marlene Guzmán * [facility], [facility]0 [facility] [address] [place] [address] [id number] 0 04/18 Alpha -1 globu tony g/dL 0.19 0.42 0.26 FINAL Marlene Guzmán * [facility], [facility]0 [facility] [address] [place] [address] [id number] 0 04/18 Alpha -2 globu tony g/dL 0.44 1.03 0.63 FINAL Marlene Guzmán * [facility] [address] [place] [address] [id number] 0 04/18 Beta globu tony g/dL 0.52 1.05 0.95 FINAL Marlene Guzmán * [facility], [address] [facility] [address] [place] [address] [id number] 0 04/18 Gamma globu tony g/dL 0.59 1.46 1.10 FINAL Marlene Guzmán * [facility], [address] [facility] [address] [place] [address] [id number] 0 04/18 Elect Gemma layton in Lab resul t note Previou sly identif ied parapro teins detecte d in gamma region. Were 0.3 and 0.4 gm/dL, now 0.3 and 0.3 gm/dL. Interpr eted and signed by Adrienne Swanson MD on 024 FINAL Marlene Guzmán * [facility], [facility]0 [facility] [address] [place] [address] [id number] 0 04/18 M-spi ke, SPE, g/dL g/dL 0.0 0.0 0.3 High FINAL Marleneanabel Guzmán * [facility], [address] [facility] [id number] 04/18 M-spi ke 2, SPE g/dL 0.0 0.0 0.3 High FINAL Marlene Guzmán * [facility], [address] [facility] [address] [facility] [id number] 0 04/18 Immun oglob ulin measu remen t IgG, quant mg/dL 610.0 1616.0 946.67 Test performed at [facility] on a Binding Site Optilite Analyzer that uses a turbidime tric method for analysis. Patient testing should not be performed using multiple methodolo gies due to analytica l variation seen between test methodolo gies. FINAL Marlene Guzmán * [facility], [address] [id number] 0 04/18 Immun oglob ulin measu remen t IgA, quant mg/dL 61.0 348.0 493.08 High Test performed at [facility] on a Binding Site Optilite Analyzer that uses a turbidime tric method for analysis. Patient testing should not be performed using multiple methodolo gies due to analytica l variation seen between test methodolo gies. FINAL Marlene Guzmán * [facility], [address] [id number] 0 04/18 Immun oglob ulin measu remen t IgM, quant mg/dL 35.0 242.0 75.62 Test performed at [facility] on a Binding Site Optilite Analyzer that uses a turbidime tric method for analysis. Patient testing should not be performed using multiple methodolo gies due to analytica l variation seen between test methodolo gies. FINAL Marlene Guzmán * [facility], [address] [id number] 0 04/18 Free kappa / lambd a with K/L ratio , serum [place] I light chain , free, serum , mg/dL mg/dL 0.33 1.94 3.62 High Test performed at [facility] on a Binding Site Optilite Analyzer that uses a turbidime tric method for analysis. Patient testing should not be performed using multiple methodolo gies due to analytica l variation seen between test methodolo gies. FINAL Marlene Stroud [facility], [address] [id number] 0 04/18 Free kappa / lambd a with K/L ratio , serum Lambd a light chain , free, serum , mg/dL mg/dL 0.57 2.63 3.13 High Test performed at [facility] on a Binding Site Optilite Analyzer that uses a turbidime tric method for analysis. Patient testing should not be performed using multiple methodolo gies due to analytica l variation seen between test methodolo gies. FINAL Marlene [facility], [address] [facility] [address] [id number] 0 04/18 Free kappa / lambd a with K/L ratio , serum K/L light chain ratio , free, serum 0.26 1.65 1.16% FINAL Marlene [facility], [address] [facility] [address] [id number] 0 04/18 CBC w/ auto diff WBC K/uL 3.0 8.9 7.0 FINAL Marlene [facility] [place], [address] [facility] [address] [facility] [id number] 0 Phone: () - 04/18 CBC w/ auto diff HGB g/dL 11.3 15.2 14.0 FINAL Marlene [facility] - [place], [address] [place] [id number] 0 Phone: () - 04/18 CBC w/ auto diff PLT K/uL 113.0 364.0 164 FINAL Marlene Rubi [facility] - [place], [address] [place] [id number] 0 Phone: () - 04/18 CBC w/ auto diff Tammy # (ANC) K/uL 1.6 6.6 4.5 FINAL Marlene [facility] - [place], [address] [place] [id number] 0 Phone: () - 04/18 CBC w/ auto diff Tammy % % 43.0 74.0 64.0 FINAL Marlene Ramirez [facility] [place], [address] [place] [id number] 0 Phone: () - 04/18 CBC w/ auto diff IG % % 0.0 0.5 0.3 FINAL Marlene Ramirez [facility] [place], [address] [place] [id number] 0 Phone: () - 04/18 CBC w/ auto diff IG # K/uL 0.0 0.03 0.02 FINAL Marlene Ramirez [facility] [place], [address] [place] [id number] 0 Phone: () - 04/18 CBC w/ auto diff LY % % 14.0 41.0 28.2 FINAL Marlene Guzmán [facility] [place], [address] [place] [id number] 0 Phone: () - 04/18 CBC w/ auto diff MO % % 6.0 15.0 6.0 FINAL Marlene Guzmán [facility] [place], [address] [place] [id number] 0 Phone: () - 04/18 CBC w/ auto diff EO % % 0.0 7.0 1.1 FINAL Marlene Ramirez [facility] [place], [address] [place] [id number] 0 Phone: () - 04/18 CBC w/ auto diff BA % % 0.0 2.0 0.4 FINAL Marlene [facility] [place], [address] [place] [id number] 0 Phone: () - 04/18 CBC w/ auto diff LY # K/uL 0.4 3.6 2.0 FINAL Marlene [facility] - [place], [address] [place] [id number] 0 Phone: () - 04/18 CBC w/ auto diff MO # K/uL 0.2 1.3 0.4 FINAL Marlene [facility] - [place], [address] [place] [id number] 0 Phone: () - 04/18 CBC w/ auto diff EO # K/uL 0.0 0.6 0.1 FINAL Marlene [facility] - [place], [address] [place] [id number] 0 Phone: () - 04/18 CBC w/ auto diff BA # K/uL 0.0 0.2 0.0 FINAL Marlene Rub[facility] - [place], [address] [place] [id number] 0 Phone: () - 04/18 CBC w/ auto diff NRBC % #/100W BC 0.0 0.2 0.0 FINAL Marlene [facility] - [place], [address] [place] [id number] 0 Phone: () - 04/18 CBC w/ auto diff RBC M/uL 3.9 5.1 4.84 FINAL Marlene [facility] - [place], [address] [place] [id number] 0 Phone: () - 04/18 CBC w/ auto diff HCT % 35.0 48.0 40.4 FINAL Marlene Guzmán [facility] [place], [address] [place] [id number] 0 Phone: () - 04/18 CBC w/ auto diff MCV fL 80.0 104.0 83.5 FINAL Marlene Guzmán [facility] [place], [address] [place] [id number] 0 Phone: () - 04/18 CBC w/ auto diff MCH pg 26.0 35.0 28.9 FINAL Marlene Guzmán [facility] [place], [address] [place] [id number] 0 Phone: () - 04/18 CBC w/ auto diff MCHC g/dL 30.0 35.0 34.7 FINAL Marlene Guzmán [facility] [place], [address] [place] [id number] 0 Phone: () - 04/18 CBC w/ auto diff MPV fL 9.5 13.4 9.7 FINAL Marlene Guzmán [facility] [place], [address] [place] [id number] 0 Phone: () - 04/18 CBC w/ auto diff RDW % 11.4 16.1 13.80 FINAL Marlene Guzmán [facility] [place], [address] [place] [id number] 0 Phone: () - 04/18 CMP Album in g/dL 3.5 5.0 4.0 FINAL Marlene Guzmán * [facility] [place], [address] [place] [id number] 0 04/18 CMP Alkal ine phosp hatas e U/L 36.0 125.0 105 FINAL Marlene Guzmán * [facility] [place], [address] [place] [id number] 0 04/18 CMP ALT/S GPT U/L 0.0 34.0 35 High FINAL Marlene Guzmán * [facility], [address] [facility] [address] [id number] 0 04/18 CMP AST/S GOT U/L 14.0 36.0 44 High FINAL Marlene Guzmán * [facility], [address] [facility] [address] [id number] 0 04/18 CMP BUN mg/dL 7.0 17.0 21.0 High FINAL Marlene Guzmán * [facility], [address] [facility] [address] [id number] 0 04/18 CMP Calci um mg/dL 8.4 10.2 8.8 FINAL Marlene Guzmán * [facility], [address] [facility] [address] [id number] 0 04/18 CMP Chlor nilson mmol/L 96.0 107.0 106 FINAL Marlene Guzmán * [facility], [address] [facility] [address] [id number] 0 04/18 CMP CO2 mmol/L 22.0 30.0 [...] hour stability window. FINAL Marlene Guzmán * [facility], [address] [facility] [address] [id number] 0 04/18 CMP Creat inine mg/dL 0.66 1.25 0.70 FINAL Marlene Guzmán * [facility], [address] [facility] [id number] 0 04/18 CMP GFR estim ate ml/min /1.73m ^2 97.7 GFR is calculate d using the CKD-EPI equation. FINAL Marlene Guzmán * [facility], [address] [facility] [id number] 0 04/18 CMP Gluco se mg/dL 74.0 100.0 267 High FINAL Marlene Guzmán * [facility], [address] [facility] [id number] 0 04/18 CMP Potas sium mmol/L 3.5 5.1 4.0 FINAL Marlene Guzmán * [facility], [address] [facility] [id number] 0 04/18 CMP Sodiu m mmol/L 137.0 145.0 136 Low FINAL Marlene Guzmán * [facility], [address] [facility] [id number] 0 04/18 CMP Bilir ubin, total mg/dL 0.2 1.3 1.0 FINAL Marlene Guzmán * [facility], [address] [facility] [id number] 0 04/18 CMP Total prote in g/dL 6.3 8.2 7.3 FINAL Marlene Guzmán * [facility], [address] [facility] [id number] 0 04/18 [facility] other [place] See waiter/waitress club d 12/20 [facility] other lab See waiter/waitress club d 12/20 Misc other lab See waiter/waitress club d 03/09 Free kappa / lambd a with K/L ratio , serum [place] light chain , free, serum , mg/dL mg/dL 0.33 1.94 4.35 High Test performed at [facility] on a Binding Site Optilite Analyzer that uses a turbidime tric method for analysis. Patient testing should not be performed using multiple methodolo gies due to analytica l variation seen between test methodolo gies. FINAL Marlene Guzmán * [facility] , [address] [facility] [id number] 0 03/09 Free kappa / lambd a with K/L ratio , serum Lamb[place] a light chain , free, serum , mg/dL mg/dL 0.57 2.63 3.83 High Test performed at [facility] on a Binding Site Optilite Analyzer that uses a turbidime tric method for analysis. Patient testing should not be performed using multiple methodolo gies due to analytica l variation seen between test methodolo gies. FINAL Marlene Guzmán * [facility] , [address] [facility] [address] [id number] 0 03/09 Free kappa / lambd a with K/L ratio , serum K/L light chain ratio , free, serum 0.26 1.65 1.14% FINAL Marlene Guzmán * [facility] , [address] [facility] [address] [id number] 0 03/09 CMP Album in g/dL 3.5 5.0 3.8 FINAL Marlene Guzmán * [facility] , [address] [facility] [address] [id number] 0 03/09 CMP Alkal ine phosp hatas e U/L 36.0 125.0 106 FINAL Marlene Guzmán * [facility] , [address] [address] [id number] 0 03/09 CMP ALT/S GPT U/L 0.0 34.0 37 High FINAL Marlene Guzmán * [facility] , [address] [address] [id number] 0 03/09 CMP AST/S GOT U/L 14.0 36.0 36 FINAL Marlene Ramirez * [facility] , [address] [facility] [address] [facility] [id number] 0 03/09 CMP BUN mg/dL 7.0 17.0 18.0 High FINAL Marlene Guzmán * [facility] , [address] [facility] [address] [facility] [id number] 0 03/09 CMP Calci um mg/dL 8.4 10.2 8.9 FINAL Marlene Guzmán * [facility] , [address] [facility] [address] [facility] [id number] 0 03/09 CMP Chlor nilson mmol/L 96.0 107.0 99 FINAL Marlene Guzmán * [facility] , [address] [facility] [address] [facility] [id number] 0 03/09 CMP CO2 mmol/L 22.0 30.0 [...] hour stability window. FINAL Marlene Guzmán * [facility] , [address] [facility] [address] [facility] [id number] 0 03/09 CMP Creat inine mg/dL 0.66 1.25 0.70 FINAL Marlene Guzmán * [facility] , [address] [facility] [address] [facility] [id number] 0 03/09 CMP GFR estim ate ml/min /1.73m ^2 97.1 GFR is calculate d using the CKD-EPI equation. FINAL Marlene Guzmán * [facility] , [address] [facility] [address] [id number] 0 03/09 CMP Gluco se mg/dL 74.0 100.0 363 Criti sami High FINAL Marlene Guzmán * [facility] , [address] [facility] [address] [facility] [id number] 0 03/09 CMP Potas sium mmol/L 3.5 5.1 3.9 FINAL Marlene Guzmán * [facility] , [address] [facility] [address] [facility] [id number] 0 03/09 CMP Sodiu m mmol/L 137.0 145.0 134 Low FINAL Marlene Guzmán * [facility] , [address] [address] [facility] [id number] 0 03/09 CMP Bilir ubin, total mg/dL 0.2 1.3 1.1 FINAL Marlene Guzmán * [facility] , [address] [address] [facility] [id number] 0 03/09 CMP Total prote in g/dL 6.3 8.2 7.3 FINAL Marlene Guzmán * [facility] , [address] [facility] [id number] 0 03/09 CBC w/ auto diff WBC K/uL 3.0 8.9 7.1 FINAL Marlene Guzmán [place] [facility] [place] [facility] , [address] [place] [id number] 0 03/09 CBC w/ auto diff HGB g/dL 11.3 15.2 14.4 FINAL Marlene Guzmán [place] [facility] [place] [facility] , [address] [place] [id number] 0 03/09 CBC w/ auto diff PLT K/uL 113.0 364.0 179 FINAL Marlene Guzmán [place] [facility] [place] [facility] , [address] [place] [id number] 0 03/09 CBC w/ auto diff Tammy # (ANC) K/uL 1.6 6.6 4.7 FINAL Marlene Guzmán [place] [facility] [place] [facility] , [address] [place] [id number] 0 03/09 CBC w/ auto diff Tammy % % 43.0 74.0 65.7 FINAL Marlene Guzmán [place] [facility] [place] [facility] , [address] [place] [id number] 0 03/09 CBC w/ auto diff IG % % 0.0 0.5 0.6 High FINAL Marlene Guzmán [place] [facility] [place] [facility] , [address] [place] [id number] 0 03/09 CBC w/ auto diff IG # K/uL 0.0 0.03 0.04 High FINAL Marlene Guzmán [place] [facility] [place] [facility] , [address] [place] [id number] 0 03/09 CBC w/ auto diff LY % % 14.0 41.0 25.8 FINAL Marlene Guzmán [place] [facility] , [address] [place] [id number] 0 03/09 CBC w/ auto diff MO % % 6.0 15.0 6.2 FINAL Marlene Guzmán [place] [facility] , [address] [place] [id number] 0 03/09 CBC w/ auto diff EO % % 0.0 7.0 1.1 FINAL Marlene Guzmán [place] [facility] [place] [facility] , [address] [place] [id number] 0 03/09 CBC w/ auto diff BA % % 0.0 2.0 0.6 FINAL Marlene Guzmán [place] [facility] [place] [facility] , [address] [place] [id number] 0 03/09 CBC w/ auto diff LY # K/uL 0.4 3.6 1.8 FINAL Marlene Guzmán [place] [facility] [place] [facility] , [address] [place] [id number] 0 03/09 CBC w/ auto diff MO # K/uL 0.2 1.3 0.4 FINAL Marlene Guzmán [place] [facility] [place] [facility] , [address] [place] [id number] 0 03/09 CBC w/ auto diff EO # K/uL 0.0 0.6 0.1 FINAL Marlene Guzmán [place] [facility] [place] [facility] , [address] [place] [id number] 0 03/09 CBC w/ auto diff BA # K/uL 0.0 0.2 0.0 FINAL Marlene Guzmán [place] [facility] [place] [facility] , [address] [place] [id number] 0 03/09 CBC w/ auto diff NRBC % #/100W BC 0.0 0.2 0.0 FINAL Marlene Guzmán [place] [facility] [place] [facility] , [address] [place] [id number] 0 03/09 CBC w/ auto diff RBC M/uL 3.9 5.1 5.08 FINAL Marlene Guzmán [place] [facility] [place] [facility] , [address] [place] [id number] 0 03/09 CBC w/ auto diff HCT % 35.0 48.0 42.9 FINAL Marlene Guzmán [facility] , [address] [place] [facility] [id number] 0 03/09 CBC w/ auto diff MCV fL 80.0 104.0 84.4 FINAL Marlene Guzmán [facility] , [address] [facility] [address] [place] [facility] [id number] 0 03/09 CBC w/ auto diff MCH pg 26.0 35.0 28.3 FINAL Marlene Guzmán [facility] , [address] [facility] [address] [facility] [id number] 0 03/09 CBC w/ auto diff MCHC g/dL 30.0 35.0 33.6 FINAL Marlene Guzmán [facility] , [address] [facility] [address] [facility] [id number] 0 03/09 CBC w/ auto diff MPV fL 9.5 13.4 9.6 FINAL Marlene Guzmán [facility] , [address] [facility] [address] [facility] [id number] 0 03/09 CBC w/ auto diff RDW % 11.4 16.1 14.20 FINAL Marlene Guzmán [facility] , [address] [facility] [address] [facility] [id number] 0 03/09 Immun oglob ulin measu remen t IgG, quant mg/dL 610.0 1616.0 1080.49 Test performed at [facility] on a Binding Site Optilite Analyzer that uses a turbidime tric method for analysis. Patient testing should not be performed using multiple methodreal rocha due to analytica l variation seen between test methodreal rocha. FINAL Marlene Guzmán * [facility] , [address] [facility] [id number] 0 03/09 Immun oglob ulin measu remen t IgA, quant mg/dL 61.0 348.0 577.26 High Test performed at [facility] on a Binding Site Optilite Analyzer that uses a turbidime tric method for analysis. Patient testing should not be performed using multiple methodolo gies due to analytica l variation seen between test methodolo gies. FINAL Marlene Guzmán * [facility] , [facility] [address] [id number] 0 03/09 Immun oglob ulin measu remen t IgM, quant mg/dL 35.0 242.0 91.00 Test performed at [facility] on a Binding Site Optilite Analyzer that uses a turbidime tric method for analysis. Patient testing should not be performed using multiple methodolo gies due to analytica l variation seen between test methodolo gies. FINAL Marlene Guzmán * [facility] , [facility] [address] [id number] 03/09 Total prote in g/dL 6.3 8.2 7.1 FINAL Marlene Guzmán * [facility] , [facility] [address] [place] [address] [id number] 03/09 Album in, SPE g/dL 3.31 5.31 4.70 FINAL Marlene Guzmán * [facility] , [facility] [address] [id number] 03/09 Alpha -1 globu tony g/dL 0.19 0.42 0.23 FINAL Marlene Guzmán * [facility] , [facility] [address] [id number] 03/09 Alpha -2 globu tony g/dL 0.44 1.03 0.52 FINAL Marlene Guzmán * [facility] , [facility] [address] [id number] 03/09 Beta globu tony g/dL 0.52 1.05 0.80 FINAL Marlene Guzmán * [facility] , [address] [facility] [address] [id number] 03/09 Gamma globu tony g/dL 0.59 1.46 0.85 FINAL Marlene Guzmán * [facility] , [address] [facility] [address] [id number] 03/09 Elect Gemma layton in Lab resul t note Previou sly identif ied parapro teins detecte d in gamma region. Is now 0.3 and 0.4 gm/dL. Interpr eted and signed by Luis Guillermo MD on 025 FINAL Marlene Guzmán * [facility] , [facility] [address] [id number] 03/09 M-spi ke, SPE, g/dL g/dL 0.0 0.0 0.3 High FINAL Marlene Guzmán * [facility] , [address] [facility] [address] [id number] 0 03/09 M-spi ke 2, SPE g/dL 0.0 0.0 0.4 High FINAL Marlene Guzmán * [facility] , [address] [facility] [address] [id number] 0 04/03 Misc other lab See waiter/waitress club d Medications Date Name Route Dose Frequency [...] 70 04/10/2025 BMI 53.23 Notes Section * HEART DOCTOR Follow-Up GYNECOLOGIC ONCOLOGY FOLLOW-UP VISIT Patient Name: JOSE ANGEL CH : 1960 Date of Visit: 11/23/2023 Referring Provider: Malissa Hernandez MD (TRACK REPAIR PERSON) Attending: Marlene Guzmán (Hematology/Oncology) Chief Complaint (Makeup Sales Consultant 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 History of Present Illness (Makeup Sales Consultant Oncology): 63 y.o.?? 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 Anxious, , female tearful??throughout [...] record:05/23/2019 Last record:05/23/2019; ) Assessment & Plan (Makeup Sales Consultant Oncology): 63?? y.o. with abnormal uterine [...]
--- OUTSIDE RECORDS SUMMARY | 2025-07-06 23:28 | XMS_ITS ---
Author Name Interface, [id number] lity Address [address] [facility] [address] [place] [address] [facility] On[facility] Address [address] [facility] [address] [place] [address] Support Name Relationship Address Phone Greg Henry [...] Source Lab Address 11/05 [facility] [place] See wood heel attacher d 11/08 [facility] [place] See wood heel attacher d 11/22 Color (ua) Yellow FINAL Hafsa Bud [place] [facility] [place], [address] [facility] [address] [place] [phone] 0 Phone: () - 11/22 Appea ying (ua) Clear FINAL Hafsaanabel Rubi [facility] - [place], [address] [place] [address] [address] [place] [phone] 0 Phone: () - 11/22 Gluco se (ua), qual 500.0% Abnor mal FINAL Hafsaanabel Rubi [facility] - [place], [address] [place] [address] [address] [place] [phone] 0 Phone: () - 11/22 Bilir ubin (ua) Negativ e FINAL Hafsaanabel Rubi a [facility] - [place], [address] [place] [address] [address] [place] [phone] 0 Phone: () - 11/22 Urina lysis , aceto ne or keton e chapo s measu remen t Negativ e FINAL Hafsaanabel Rubi [facility] - [place], [address] [place] [address] [address] [place] [phone] 0 Phone: () - 11/22 Speci fic gravi ty (ua) 1.005 1.02 1.025% Abnor mal FINAL Hafsaanabel Rubi [facility] - [place], [address] [place] [address] [address] [place] [phone] 0 Phone: () - 11/22 Blood (ua) Negativ e FINAL Hafsaanabel Rubi [facility] - [place], [address] [place] [address] [address] [place] [phone] 0 Phone: () - 11/22 pH (ua) 5.0 8.0 6.0% FINAL Hafsaanabel [place] [facility] [place], [address] [place] [address] [address] [place] [phone] 0 Phone: () - 11/22 Prote in (ua) Negativ e FINAL Hafsaanabel Rubi [facility] - [place], [address] [place] [address] [address] [place] [phone] 0 Phone: () - 11/22 Urobi linog en (ua) 0.2 1.0 0.2% FINAL [facility]afsaanabel [facility] [place], [address] [place] [address] 210 [facility] [phone] 0 Phone: () - 11/22 Nitri te (ua) Negativ e FINAL Hafsa Rubi a [facility], [address] [place] [address] 210 [facility] [phone] 0 Phone: () - 11/22 Leuko cyte jerson ase (ua), qual Negativ e FINAL Hafsa Rubi [facility], [address] [place] [address] [phone] Phone: () - 11/22 UA comme nt 1 Dipstic k negativ e- Culture ordered per provide r FINAL Hafsa Rubi [facility], [address] [place] [address] [phone] Phone: () - 11/22 Urine cultu re panel CULTU RE, URINE , ROUTI NE SEE NOTE Abnor mal 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, 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, 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: [id number] est Status: FinalSpec imen Source: UrineSpec imen [...] [facility] [address] [phone] 4 12/18 [facility] [place] See d 04/18 Total prote in g/dL 6.3 8.2 6.9 FINAL Marlene Guzmán * [facility], [facility]0 [facility] [address] [place] [address] [id number] 0 04/18 Album in, SPE g/dL 3.31 5.31 3.97 FINAL Marlene Guzmán * [facility], [facility]0 [address] [place] [address] [id number] 0 04/18 Alpha -1 globu tony g/dL 0.19 0.42 0.26 FINAL Marlene Guzmán * [facility], [address] [id number] 0 04/18 Alpha -2 globu tony g/dL 0.44 1.03 0.63 FINAL Marlene Guzmán * [facility], [address] [id number] 0 04/18 Beta globu tony g/dL 0.52 1.05 0.95 FINAL Marlene Guzmán * [facility], [address] [id number] 0 04/18 Gamma globu tony g/dL 0.59 1.46 1.10 FINAL Marlene Guzmán * [facility], [facility]0 [facility] [address] [place] [address] [id number] 0 04/18 Elect abiola jackson Gemma in Lab resul t note Previou sly identif ied parapro teins detecte d in gamma region. Were 0.3 and 0.4 gm/dL, now 0.3 and 0.3 gm/dL. Interpr eted and signed by Adrienne Swanson MD on 024 FINAL Marlene Guzmán * [facility], [facility]0 [facility] [address] [place] [address] [id number] 0 04/18 M-spi ke, SPE, g/dL g/dL 0.0 0.0 0.3 High FINAL Marlene Guzmán * [facility], [address] [facility] [address] [id number] 0 04/18 M-spi ke 2, SPE g/dL 0.0 0.0 0.3 High FINAL Marlene Guzmán * [facility], [facility]0 [facility] [address] [place] [address] [id number] 0 04/18 Immun oglob ulin measu remen t IgG, quant mg/dL 610.0 1616.0 946.67 Test performed at [facility] on a Binding Site Optilite Analyzer that uses a turbidime tric method for analysis. Patient testing should not be performed using multiple methodreal gikim due to analytica l variation seen between test methodreal rocha. FINAL Marlene Guzmán * [facility] [address] [place] [address] [id number] 0 04/18 Immun oglob ulin measu remen t IgA, quant mg/dL 61.0 348.0 493.08 High Test performed at [facility] on a Binding Site Optilite Analyzer that uses a turbidime tric method for analysis. Patient testing should not be performed using multiple methodolo gies due to analytica l variation seen between test methodolo gies. FINAL Marlene Stroud [facility] [address] [place] [address] [id number] 0 04/18 Immun oglob ulin measu remen t IgM, quant mg/dL 35.0 242.0 75.62 Test performed at [facility] on a Binding Site Optilite Analyzer that uses a turbidime tric method for analysis. Patient testing should not be performed using multiple methodolo gies due to analytica l variation seen between test methodolo gies. FINAL Marlene Stroud [facility] a [address] [place] [address] [id number] 0 04/18 Free kappa / lambd a with K/L ratio , serum Earl light chain , free, serum , mg/dL mg/dL 0.33 1.94 3.62 High Test performed at [facility] on a Binding Site Optilite Analyzer that uses a turbidime tric method for analysis. Patient testing should not be performed using multiple methodolo gies due to analytica l variation seen between test methodolo gies. FINAL Marlene Guzmán * Jann a [address] [place] [address] [id number] 0 04/18 Free kappa / lambd a with K/L ratio , serum Lambd a light chain , free, serum , mg/dL mg/dL 0.57 2.63 3.13 High Test performed at [facility] on a Binding Site Optilite Analyzer that uses a turbidime tric method for analysis. Patient testing should not be performed using multiple methodolo gies due to analytica l variation seen between test methodolo gies. FINAL Marlene Stroud [facility] [address] [place] [address] [id number] 0 04/18 Free kappa / lambd a with K/L ratio , serum K/L light chain ratio , free, serum 0.26 1.65 1.16% FINAL Marlene Guzmán * [facility] [place], [address] [facility] [place] [id number] 0 04/18 CBC w/ auto diff WBC K/uL 3.0 8.9 7.0 FINAL Marlene [facility] [facility] [place], [address] [place] [id number] 0 Phone: () - 04/18 CBC w/ auto diff HGB g/dL 11.3 15.2 14.0 FINAL Marlene Rubi a [facility] - [place], [address] [place] [id number] 0 Phone: () - 04/18 CBC w/ auto diff PLT K/uL 113.0 364.0 164 FINAL Marlene Rubi a [facility] - [place], [address] [place] [phone] 0 Phone: () - 04/18 CBC w/ auto diff Tammy # (ANC) K/uL 1.6 6.6 4.5 FINAL Marlene pagan [facility] - [place], [address] [place] [id number] 0 Phone: () - 04/18 CBC w/ auto diff Tammy % % 43.0 74.0 64.0 FINAL Marlene pagan [facility] - [place], [address] [place] [id number] 0 Phone: () - 04/18 CBC w/ auto diff IG % % 0.0 0.5 0.3 FINAL Marlene Rubi a [facility] - [place], [address] [place] [id number] 0 Phone: () - 04/18 CBC w/ auto diff IG # K/uL 0.0 0.03 0.02 FINAL Marlene Rubi a [facility] - [place], [address] [place] [id number] 0 Phone: () - 04/18 CBC w/ auto diff LY % % 14.0 41.0 28.2 FINAL Marlene pagan [facility] - [place], [address] [place] [id number] 0 Phone: () - 04/18 CBC w/ auto diff MO % % 6.0 15.0 6.0 FINAL Marlene pagan [facility] - [place], [address] [place] [id number] 0 Phone: () - 04/18 CBC w/ auto diff EO % % 0.0 7.0 1.1 FINAL Marlene pagan [facility] - [place], [address] [place] [id number] 0 Phone: () - 04/18 CBC w/ auto diff BA % % 0.0 2.0 0.4 FINAL Marlene pagan [facility] - [place], [address] [place] [id number] 0 Phone: () - 04/18 CBC w/ auto diff LY # K/uL 0.4 3.6 2.0 FINAL Marlene pagan [facility] - [place], [address] [place] [id number] 0 Phone: () - 04/18 CBC w/ auto diff MO # K/uL 0.2 1.3 0.4 FINAL Marlene pagan [facility] - [place], [address] [place] [id number] 0 Phone: () - 04/18 CBC w/ auto diff EO # K/uL 0.0 0.6 0.1 FINAL Marlene pagan [facility] - [place], [address] [place] [id number] 0 Phone: () - 04/18 CBC w/ auto diff BA # K/uL 0.0 0.2 0.0 FINAL Marlene pagan [facility] - [place], [address] [place] [id number] 0 Phone: () - 04/18 CBC w/ auto diff NRBC % #/100W BC 0.0 0.2 0.0 FINAL Marlene [place] [facility] - [place], [address] [place] [id number] 0 Phone: () - 04/18 CBC w/ auto diff RBC M/uL 3.9 5.1 4.84 FINAL Marlene [place] [facility] - [place], [address] [place] [id number] 0 Phone: () - 04/18 CBC w/ auto diff HCT % 35.0 48.0 40.4 FINAL Marlene Ramirez [facility] - [place], [address] [place] [id number] 0 Phone: () - 04/18 CBC w/ auto diff MCV fL 80.0 104.0 83.5 FINAL Marlene Ramirez [facility] - [place], [address] [place] [id number] 0 Phone: () - 04/18 CBC w/ auto diff MCH pg 26.0 35.0 28.9 FINAL Marlene Guzmán [facility] - [place], [address] [place] [id number] 0 Phone: () - 04/18 CBC w/ auto diff MCHC g/dL 30.0 35.0 34.7 FINAL Marlene Guzmán [facility] - [place], [address] [place] [id number] 0 Phone: () - 04/18 CBC w/ auto diff MPV fL 9.5 13.4 9.7 FINAL Marlene Guzmán [facility] - [place], [address] [place] [id number] 0 Phone: () - 04/18 CBC w/ auto diff RDW % 11.4 16.1 13.80 FINAL Marlene Guzmán [place] [facility] [place], [address] [facility] [place] [id number] 0 Phone: ( 04/18 CMP Album in g/dL 3.5 5.0 4.0 FINAL Marlene Guzmán * [facility] [facility] [place], [address] [facility] [id number] 0 04/18 CMP Alkal ine phosp hatas e U/L 36.0 125.0 105 FINAL Marlene Guzmán * [place] [facility], [address] [facility] [id number] 0 04/18 CMP ALT/S GPT U/L 0.0 34.0 35 High FINAL Marlene Guzmán * [place] [facility], [address] [facility] [id number] 0 04/18 CMP AST/S GOT U/L 14.0 36.0 44 High FINAL Marlene Guzmán * [place] [facility], [address] [facility] [id number] 0 04/18 CMP BUN mg/dL 7.0 17.0 21.0 High FINAL Marlene Guzmán * [place] [facility], [address] [facility] [id number] 0 04/18 CMP Calci um mg/dL 8.4 10.2 8.8 FINAL Marlene Guzmán * [place] [facility], [address] [facility] [id number] 0 04/18 CMP Chlor nilson mmol/L 96.0 107.0 106 FINAL Marlene Guzmán * [place] [facility], [address] [facility] [id number] 0 04/18 CMP CO2 mmol/L 22.0 30.0 [...] 96 hour stability window. FINAL Marlene Stroud [facility], [facility]0 [facility] [address] [id number] 0 04/18 CMP Creat inine mg/dL 0.66 1.25 0.70 FINAL Marlene Guzmán * [facility], [address] [place] [address] [id number] 0 04/18 CMP GFR estim ate ml/min /1.73m ^2 97.7 GFR is calculate d using the CKD-EPI equation. FINAL Marlene Stroud [facility], [facility]0 [facility] [address] [id number] 0 04/18 CMP Gluco se mg/dL 74.0 100.0 267 High FINAL Marlene Stroud [facility], [facility]0 [facility] [address] [place] [address] [id number] 0 04/18 CMP Potas sium mmol/L 3.5 5.1 4.0 FINAL Marlene Stroud [facility], [facility]0 [facility] [address] [id number] 0 04/18 CMP Sodiu m mmol/L 137.0 145.0 136 Low FINAL Marlene Stroud [facility], [facility]0 [facility] [address] [id number] 0 04/18 CMP Bilir ubin, total mg/dL 0.2 1.3 1.0 FINAL Marlene Stroud [facility], [address] [facility] [address] [id number] 0 04/18 CMP Total prote in g/dL 6.3 8.2 7.3 FINAL Marlene Guzmán * [facility] [place], [address] [facility] [address] [id number] 0 04/18 [facility] [place] See wood heel attacher d 12/20 [facility] [place] See wood heel attacher d 12/20 [facility] [place] See wood heel attacher d 03/09 Free kappa / lambd a with K/L ratio , serum Earl light chain , free, serum , mg/dL mg/dL 0.33 1.94 4.35 High Test performed at [facility] on a Binding Site Optilite Analyzer that uses a turbidime tric method for analysis. Patient testing should not be performed using multiple methodolo gies due to analytica l variation seen between test methodolo gies. FINAL Marlene Guzmán * [facility] , [address] [facility] [address] [id number] 0 03/09 Free kappa / lambd a with K/L ratio , serum Lambd a light chain , free, serum , mg/dL mg/dL 0.57 2.63 3.83 High Test performed at [facility] on a Binding Site Optilite Analyzer that uses a turbidime tric method for analysis. Patient testing should not be performed using multiple methodolo gies due to analytica l variation seen between test methodolo gies. FINAL Marlene Guzmán * [facility] , [address] [facility] [address] [id number] 0 03/09 Free kappa / lambd a with K/L ratio , serum K/L light chain ratio , free, serum 0.26 1.65 1.14% FINAL Marlene Guzmán * [facility] , [address] [facility] [address] [id number] 0 03/09 CMP Album in g/dL 3.5 5.0 3.8 FINAL Marlene Guzmán * [facility] , [address] [facility] [id number] 0 03/09 CMP Alkal ine phosp hatas e U/L 36.0 125.0 106 FINAL Marleneanabel Guzmán * [facility] , [address] [facility] [id number] 03/09 CMP ALT/S GPT U/L 0.0 34.0 37 High FINAL Marlene Guzmán * [facility] , [address] [facility] [id number] 0 03/09 CMP AST/S GOT U/L 14.0 36.0 36 FINAL Marlene Guzmán * [facility] , [address] [facility] [id number] 0 03/09 CMP BUN mg/dL 7.0 17.0 18.0 High FINAL Marlene Guzmán * [facility] , [address] [facility] [id number] 0 03/09 CMP Calci um mg/dL 8.4 10.2 8.9 FINAL Marleneanabel Guzmán * [facility] , [address] [facility] [id number] 0 03/09 CMP Chlor nilson mmol/L 96.0 107.0 99 FINAL Marleneanabel Guzmán * [facility] , [address] [facility] [id number] 0 03/09 CMP CO2 mmol/L 22.0 30.0 [...] hour stability window. FINAL Marleneanabel Guzmán * [facility] , [address] [facility] [address] [facility] [id number] 0 03/09 CMP Creat inine mg/dL 0.66 1.25 0.70 FINAL Marleneanabel Guzmán * [facility] , [address] [facility] [address] [facility] [id number] 0 03/09 CMP GFR estim ate ml/min /1.73m ^2 97.1 GFR is calculate d using the CKD-EPI equation. FINAL Marleneanabel Guzmán * [facility] , [address] [facility] [address] [facility] [id number] 0 03/09 CMP Gluco se mg/dL 74.0 100.0 363 Criti sami High FINAL Marlene Guzmán * [facility] , [address] [facility] [address] [facility] [id number] 0 03/09 CMP Potas sium mmol/L 3.5 5.1 3.9 FINAL Marlene Ramirez * [facility] , [address] [facility] [address] [facility] [id number] 0 03/09 CMP Sodiu m mmol/L 137.0 145.0 134 Low FINAL Marleneanabel Guzmán * [facility] , [address] [facility] [address] [facility] [id number] 0 03/09 CMP Bilir ubin, total mg/dL 0.2 1.3 1.1 FINAL Marleneanabel Guzmán * [facility] , [address] [facility] [address] [facility] [id number] 0 03/09 CMP Total prote in g/dL 6.3 8.2 7.3 FINAL Marlene Guzmán * [facility] , [address] [facility] [address] [facility] [id number] 0 03/09 CBC w/ auto diff WBC K/uL 3.0 8.9 7.1 FINAL Marlene Guzmán [place] [facility] [place] [facility] , [address] [place] [id number] 0 03/09 CBC w/ auto diff HGB g/dL 11.3 15.2 14.4 FINAL Marlene Guzmán [place] [facility] [place] [facility] , [address] [place] [id number] 0 03/09 CBC w/ auto diff PLT K/uL 113.0 364.0 179 FINAL Marlene Guzmán [place] [facility] [place] [facility] , [address] [place] [id number] 0 03/09 CBC w/ auto diff Tammy # (ANC) K/uL 1.6 6.6 4.7 FINAL [facility]lene Guzmán [facility] [place] [facility] , [address] [place] [id number] 0 03/09 CBC w/ auto diff Tammy % % 43.0 74.0 65.7 FINAL Marlene Guzmán [place] [facility] [place] [facility] , [address] [place] [id number] 0 03/09 CBC w/ auto diff IG % % 0.0 0.5 0.6 High FINAL Marlene Guzmán [place] [facility] [place] [facility] , [address] [place] [id number] 0 03/09 CBC w/ auto diff IG # K/uL 0.0 0.03 0.04 High FINAL Marlene Guzmán [place] [facility] [place] [facility] , [address] [place] [id number] 0 03/09 CBC w/ auto diff LY % % 14.0 41.0 25.8 FINAL Marlene Guzmán [place] [facility] [place] [facility] , [address] [place] [id number] 0 03/09 CBC w/ auto diff MO % % 6.0 15.0 6.2 FINAL Marlene Guzmán [place] [facility] [place] [facility] , [address] [place] [id number] 0 03/09 CBC w/ auto diff EO % % 0.0 7.0 1.1 FINAL Marlene Guzmán [place] [facility] [place] [facility] , [address] [place] [id number] 0 03/09 CBC w/ auto diff BA % % 0.0 2.0 0.6 FINAL Marlene Guzmán [place] [facility] [place] [facility] , [address] [place] [id number] 0 03/09 CBC w/ auto diff LY # K/uL 0.4 3.6 1.8 FINAL Marlene Guzmán [place] [facility] [place] [facility] , [address] [place] [id number] 0 03/09 CBC w/ auto diff MO # K/uL 0.2 1.3 0.4 FINAL Marlene Guzmán [place] [facility] [place] [facility] , [address] [place] [id number] 0 03/09 CBC w/ auto diff EO # K/uL 0.0 0.6 0.1 FINAL Marlene Guzmán [place] [facility] [place] [facility] , [address] [place] [id number] 0 03/09 CBC w/ auto diff BA # K/uL 0.0 0.2 0.0 FINAL Marlene Guzmán [place] [facility] [place] [facility] , [address] [place] [id number] 0 03/09 CBC w/ auto diff NRBC % #/100W BC 0.0 0.2 0.0 FINAL Marlene Guzmán [place] [facility] [place] [facility] , [address] [place] [id number] 0 03/09 CBC w/ auto diff RBC M/uL 3.9 5.1 5.08 FINAL Marlene Guzmán [place] [facility] , [address] [place] [id number] 0 03/09 CBC w/ auto diff HCT % 35.0 48.0 42.9 FINAL [facility]lene Guzmán [facility] [place] [facility] , [address] [place] [id number] 0 03/09 CBC w/ auto diff MCV fL 80.0 104.0 84.4 FINAL Marlene Guzmán [facility] [place] [facility] , [address] [place] [id number] 0 03/09 CBC w/ auto diff MCH pg 26.0 35.0 28.3 FINAL Marlene Guzmán [facility] [place] [facility] , [address] [place] [id number] 0 03/09 CBC w/ auto diff MCHC g/dL 30.0 35.0 33.6 FINAL Marlene Guzmán [facility] [place] [facility] , [address] [place] [id number] 0 03/09 CBC w/ auto diff MPV fL 9.5 13.4 9.6 FINAL Marlene Guzmán [place] [facility] , [address] [place] [id number] 0 03/09 CBC w/ auto diff RDW % 11.4 16.1 14.[address] [facility] , [address] [facility] [id number] 0 03/09 Total prote in g/dL 6.3 8.2 7.1 FINAL Marlene Guzmán * [facility] , [address] [facility] [address] [facility] [id number] 0 03/09 Album in, SPE g/dL 3.31 5.31 4.70 FINAL Marlene Guzmán * [facility] , [address] [facility] [address] [id number] 0 03/09 Alpha -1 globu tony g/dL 0.19 0.42 0.23 FINAL Marlene Guzmán * [facility] , [address] [facility] [address] [id number] 0 03/09 Alpha -2 globu tony g/dL 0.44 1.03 0.52 FINAL Marlene Guzmán * [facility] , [address] [facility] [address] [id number] 0 03/09 Beta globu tony g/dL 0.52 1.05 0.80 FINAL Marlene Guzmán * [facility] , [address] [facility] [address] [id number] 0 03/09 Gamma globu tony g/dL 0.59 1.46 0.85 FINAL Marlene Guzmán * [facility] , [address] [facility] [address] [id number] 0 03/09 Gemma Rodriguez in Lab resul t note Previou sly identif ied parapro teins detecte d in gamma region. Is now 0.3 and 0.4 gm/dL. Interpr eted and signed by Luis Guillermo MD on 025 FINAL Marlene Guzmán * [facility] , [address] [facility] [id number] 0 03/09 M-spi ke, SPE, g/dL g/dL 0.0 0.0 0.3 High FINAL Marlene Guzmán * [facility] , [address] [facility] [id number] 0 03/09 M-spi ke 2, SPE g/dL 0.0 0.0 0.4 High FINAL Marlene Guzmán * [facility] , [address] [facility] [id number] 0 03/09 Immun oglob ulin measu remen t IgG, quant mg/dL 610.0 1616.0 1080.49 Test performed at [facility] on a Binding Site Optilite Analyzer that uses a turbidime tric method for analysis. Patient testing should not be performed using multiple methodolo gies due to analytica l variation seen between test methodolo gies. FINAL Marlene Guzmán * [facility] , [address] [facility] [id number] 0 03/09 Immun oglob ulin measu remen t IgA, quant mg/dL 61.0 348.0 577.26 High Test performed at [facility] on a Binding Site Optilite Analyzer that uses a turbidime tric method for analysis. Patient testing should not be performed using multiple methodolo gies due to analytica l variation seen between test methodolo gies. FINAL Marlene Guzmán * [facility] , [address] [facility] [id number] 0 03/09 Immun oglob ulin measu remen t IgM, quant mg/dL 35.0 242.0 91.00 Test performed at [facility] on a Binding Site Optilite Analyzer that uses a turbidime tric method for analysis. Patient testing should not be performed using multiple methodolo gies due to analytica l variation seen between test methodolo josefina. 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 Malissa Hernandez to see Vero Henry in regard to a recent diagnosis of EIN/CAH. 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 * Presented with c/o [...] with myosure * Pathology:?? 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 y.o. with abnormal uterine bleeding/PMB [...] signed by Abbie Gallo MD 08/03/2023 12:46 [employer] CAR [employer]
--- OUTSIDE RECORDS SUMMARY | 2025-07-06 23:29 | XMS_ITS ---
Author Name Interface, [id number] lity Address [address] [facility] [address] [place] [address] [facility] Oncology Address [address] [facility] [address] [place] [address] Support Name Relationship Address Phone Greg Henry [...] Ordered By Specimen Source Lab Address 11/05 [facility] [place] See research/program director d 11/08 [facility] [place] See research/program director d 11/22 Color (ua) Yellow FINAL Hafsa Bud [place] [facility] [place], [address] [facility] [address] [place] [phone] 0 Phone: () - 11/22 Appea ying (ua) Clear FINAL Hafsaanabel Rubi [facility] - [place], [address] [place] [address] [address] [place] [phone] 0 Phone: () - 11/22 Gluco se (ua), qual 500.0% Abnor mal FINAL Hafsaanabel Rubi [facility] - [place], [address] [place] [address] [address] [place] [phone] Phone: () - 11/22 Bilir ubin (ua) Negativ e FINAL Hafsaanabel Rubi [facility] - [place], [address] [place] [address] [address] [place] [phone] 0 Phone: () - 11/22 Urina lysis , aceto ne or keton e chapo s measu remen t Negativ e FINAL Hafsaanabel Rubi [facility] - [place], [address] [place] [address] [address] [place] [phone] 0 Phone: () - 11/22 Speci fic gravi ty (ua) 1.005 1.02 1.025% Abnor mal FINAL Hafsaanbael Rubi [facility] - [place], [address] [place] [address] [address] [place] [phone] 0 Phone: () - 11/22 Blood (ua) Negativ e FINAL Hafsaanabel Rubi [facility] - [place], [address] [place] [address] [address] [place] [phone] 0 Phone: () - 11/22 pH (ua) 5.0 8.0 6.0% FINAL Hafsaanabel [facility] [facility] - [place], [address] [place] [address] [address] [place] [phone] 0 Phone: () - 11/22 Prote in (ua) Negativ e FINAL Hafsaanabel Rubi [facility] - [place], [address] [place] [address] [address] [place] [phone] 0 Phone: () - 11/22 Urobi linog en (ua) 0.2 1.0 0.2% FINAL Hafsaanabel Foretot a [facility] - [place], [address] [place] [address] 210 [facility] [phone] 0 Phone: () - 11/22 Nitri te (ua) Negativ e FINAL Hafsa Rubi a [facility], [address] [place] [address] 210 [facility] [phone] Phone: () - 11/22 Leuko cyte jerson ase (ua), qual Negativ e FINAL Hafsa Rubi [facility], [address] [place] [address] [phone] Phone: () - 11/22 UA comme nt 1 Dipstic k negativ e- Culture ordered per provide r FINAL Hafsa Rbui [facility], [address] [place] [address] [phone] Phone: () - 11/22 Urine cultu re panel CULTU RE, URINE , ROUTI NE SEE NOTE Abnor mal 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 FINAL Hafsaanabel Farrell [facility] [address] [facility] [id number] 4 12/18 [facility] See d 04/18 Total prote in g/dL 6.3 8.2 6.9 FINAL Marlene Guzmán * [facility], [facility] [address] [place] [address] [id number] 0 04/18 Album in, SPE g/dL 3.31 5.31 3.97 FINAL Marlene Guzmán * [facility], [facility] [address] [place] [address] [id number] 0 04/18 Alpha -1 globu tony g/dL 0.19 0.42 0.26 FINAL Marlene Guzmán * [facility], [address] [facility] [address] [id number] 0 04/18 Alpha -2 globu tony g/dL 0.44 1.03 0.63 FINAL Marlene Guzmán * [facility], [address] [facility] [address] [id number] 0 04/18 Beta globu tony g/dL 0.52 1.05 0.95 FINAL Marlene Guzmán * [facility], [address] [facility] [address] [id number] 0 04/18 Gamma globu tony g/dL 0.59 1.46 1.10 FINAL Marlene Guzmán * [facility], [facility] [address] [place] [address] [id number] 0 04/18 Elect abiola jackson Gemma in Lab resul t note Previou sly identif ied parapro teins detecte d in gamma region. Were 0.3 and 0.4 gm/dL, now 0.3 and 0.3 gm/dL. Interpr eted and signed by Adrienne Swanson MD on 024 FINAL Marlene Guzmán * [facility], [facility] [address] [place] [address] [id number] 0 04/18 M-spi ke, SPE, g/dL g/dL 0.0 0.0 0.3 High FINAL Marlene Guzmán * [facility], [address] [facility] [address] [id number] 0 04/18 M-spi ke 2, SPE g/dL 0.0 0.0 0.3 High FINAL Marlene Guzmán * [facility], [facility] [address] [place] [address] [id number] 0 04/18 Immun oglob ulin measu remen t IgG, quant mg/dL 610.0 1616.0 946.67 Test performed at [facility] on a Binding Site Optilite Analyzer that uses a turbidime tric method for analysis. Patient testing should not be performed using multiple methodreal gikim due to analytica l variation seen between test methodreal rocha. FINAL Marlene Guzmán * [facility] [address] [place] [address] [id number] 0 04/18 Immun oglob ulin measu remen t IgA, quant mg/dL 61.0 348.0 493.08 High Test performed at [facility] on a Binding Site Optilite Analyzer that uses a turbidime tric method for analysis. Patient testing should not be performed using multiple methodolo gies due to analytica l variation seen between test methodolo gies. FINAL Marlene Stroud [facility] [address] [place] [address] [id number] 0 04/18 Immun oglob ulin measu remen t IgM, quant mg/dL 35.0 242.0 75.62 Test performed at [facility] on a Binding Site Optilite Analyzer that uses a turbidime tric method for analysis. Patient testing should not be performed using multiple methodolo gies due to analytica l variation seen between test methodolo gies. FINAL Marlene Stroud [facility] a [address] [place] [address] [id number] 0 04/18 Free kappa / lambd a with K/L ratio , serum [place] light chain , free, serum , mg/dL mg/dL 0.33 1.94 3.62 High Test performed at [facility] on a Binding Site Optilite Analyzer that uses a turbidime tric method for analysis. Patient testing should not be performed using multiple methodolo gies due to analytica l variation seen between test methodolo gies. FINAL Marlene Guzmán * Jann a [address] [place] [address] [id number] 0 04/18 Free kappa / lambd a with K/L ratio , serum Lambd a light chain , free, serum , mg/dL mg/dL 0.57 2.63 3.13 High Test performed at [facility] on a Binding Site Optilite Analyzer that uses a turbidime tric method for analysis. Patient testing should not be performed using multiple methodolo gies due to analytica l variation seen between test methodolo gies. FINAL Marlene Stroud [facility] [address] [place] [address] [id number] 0 04/18 Free kappa / lambd a with K/L ratio , serum K/L light chain ratio , free, serum 0.26 1.65 1.16% FINAL Marlene Guzmán * [place] [facility] [place], [address] [facility] [place] [id number] 0 04/18 CBC w/ auto diff WBC K/uL 3.0 8.9 7.0 FINAL Marlene [facility] - [place], [address] [place] [id number] 0 Phone: () - 04/18 CBC w/ auto diff HGB g/dL 11.3 15.2 14.0 FINAL Marlene Rubi a [facility] - [place], [address] [place] [id number] 0 Phone: () - 04/18 CBC w/ auto diff PLT K/uL 113.0 364.0 164 FINAL Marlene Rubi a [facility] - [place], [address] [place] [id number] 0 Phone: () - 04/18 CBC w/ auto diff Tammy # (ANC) K/uL 1.6 6.6 4.5 FINAL Marlene pagan [facility] - [place], [address] [place] [id number] 0 Phone: () - 04/18 CBC w/ auto diff Tammy % % 43.0 74.0 64.0 FINAL Marlene pagan [facility] - [place], [address] [place] [id number] 0 Phone: () - 04/18 CBC w/ auto diff IG % % 0.0 0.5 0.3 FINAL Marlene Rubi a [facility] - [place], [address] [place] [id number] 0 Phone: () - 04/18 CBC w/ auto diff IG # K/uL 0.0 0.03 0.02 FINAL Marlene Rubi a [facility] - [place], [address] [place] [id number] 0 Phone: () - 04/18 CBC w/ auto diff LY % % 14.0 41.0 28.2 FINAL Marlene pagan [facility] - [place], [address] [place] [id number] 0 Phone: () - 04/18 CBC w/ auto diff MO % % 6.0 15.0 6.0 FINAL Marlene pagan [facility] - [place], [address] [place] [id number] 0 Phone: () - 04/18 CBC w/ auto diff EO % % 0.0 7.0 1.1 FINAL Marlene pagan [facility] - [place], [address] [place] [id number] 0 Phone: () - 04/18 CBC w/ auto diff BA % % 0.0 2.0 0.4 FINAL Marlene pagan [facility] - [place], [address] [place] [id number] 0 Phone: () - 04/18 CBC w/ auto diff LY # K/uL 0.4 3.6 2.0 FINAL Marlene pagan [facility] - [place], [address] [place] [id number] 0 Phone: () - 04/18 CBC w/ auto diff MO # K/uL 0.2 1.3 0.4 FINAL Marlene pagan [facility] - [place], [address] [place] [id number] 0 Phone: () - 04/18 CBC w/ auto diff EO # K/uL 0.0 0.6 0.1 FINAL Marlene pagan [facility] - [place], [address] [place] [id number] 0 Phone: () - 04/18 CBC w/ auto diff BA # K/uL 0.0 0.2 0.0 FINAL Marlene pagan [facility] - [place], [address] [place] [id number] 0 Phone: () - 04/18 CBC w/ auto diff NRBC % #/100W BC 0.0 0.2 0.0 FINAL Marlene [facility] - [place], [address] [place] [id number] 0 Phone: () - 04/18 CBC w/ auto diff RBC M/uL 3.9 5.1 4.84 FINAL Marlene [facility] - [place], [address] [place] [id number] 0 Phone: () - 04/18 CBC w/ auto diff HCT % 35.0 48.0 40.4 FINAL Marlene Ramirez [facility] - [place], [address] [place] [id number] 0 Phone: () - 04/18 CBC w/ auto diff MCV fL 80.0 104.0 83.5 FINAL Marlene Ramirez [facility] - [place], [address] [place] [id number] 0 Phone: () - 04/18 CBC w/ auto diff MCH pg 26.0 35.0 28.9 FINAL Marlene Guzmán [facility] - [place], [address] [place] [id number] 0 Phone: () - 04/18 CBC w/ auto diff MCHC g/dL 30.0 35.0 34.7 FINAL Marlene Guzmán [facility] - [place], [address] [place] [id number] 0 Phone: () - 04/18 CBC w/ auto diff MPV fL 9.5 13.4 9.7 FINAL Marlene Guzmán [facility] - [place], [address] [place] [id number] 0 Phone: () - 04/18 CBC w/ auto diff RDW % 11.4 16.1 13.80 FINAL Marlene Guzmán [place] [facility] [place], [address] [facility] [place] [id number] 0 Phone: ( 04/18 CMP Album in g/dL 3.5 5.0 4.0 FINAL Marlene Guzmán * [place] [facility] [place], [address] [facility] [id number] 0 04/18 CMP Alkal ine phosp hatas e U/L 36.0 125.0 105 FINAL Marlene Guzmán * [place] [facility], [address] [facility] [id number] 0 04/18 CMP ALT/S GPT U/L 0.0 34.0 35 High FINAL Marlene Guzmán * [place] [facility], [address] [facility] [id number] 0 04/18 CMP AST/S GOT U/L 14.0 36.0 44 High FINAL Marlene Guzmán * [place] [facility], [address] [facility] [id number] 0 04/18 CMP BUN mg/dL 7.0 17.0 21.0 High FINAL Marlene Guzmán * [place] [facility], [address] [facility] [id number] 0 04/18 CMP Calci um mg/dL 8.4 10.2 8.8 FINAL Marlene Guzmán * [place] [facility], [address] [facility] [id number] 0 04/18 CMP Chlor nilson mmol/L 96.0 107.0 106 FINAL Marlene Guzmán * [place] [facility], [address] [facility] [id number] 0 04/18 CMP CO2 mmol/L 22.0 30.0 [...] 96 hour stability window. FINAL Marlene Stroud [facility] [address] [id number] 0 04/18 CMP Creat inine mg/dL 0.66 1.25 0.70 FINAL Marlene Guzmán * [facility], [address] [place] [address] [id number] 0 04/18 CMP GFR estim ate ml/min /1.73m ^2 97.7 GFR is calculate d using the CKD-EPI equation. FINAL Marlene Stroud [facility] [address] [id number] 0 04/18 CMP Gluco se mg/dL 74.0 100.0 267 High FINAL Marlene Stroud [facility] [address] [place] [address] [id number] 0 04/18 CMP Potas sium mmol/L 3.5 5.1 4.0 FINAL Marlene Stroud [facility] [address] [id number] 0 04/18 CMP Sodiu m mmol/L 137.0 145.0 136 Low FINAL Marlene Stroud [facility] [address] [id number] 0 04/18 CMP Bilir ubin, total mg/dL 0.2 1.3 1.0 FINAL Marlene Stroud [facility], [address] [facility] [address] [id number] 0 04/18 CMP Total prote in g/dL 6.3 8.2 7.3 FINAL Marlene Guzmán * [place] [facility] [place], [address] [facility] [address] [id number] 0 04/18 [facility] [place] See research/program director d 12/20 [facility] See research/program director d 12/20 [facility] [place] See research/program director d 03/09 Free kappa / lambd a with K/L ratio , serum [place] light chain , free, serum , mg/dL mg/dL 0.33 1.94 4.35 High Test performed at [facility] on a Binding Site Optilite Analyzer that uses a turbidime tric method for analysis. Patient testing should not be performed using multiple methodolo gies due to analytica l variation seen between test methodolo gies. FINAL Marlene Guzmán * [facility] , [address] [facility] [address] [id number] 0 03/09 Free kappa / lambd a with K/L ratio , serum Lambd a light chain , free, serum , mg/dL mg/dL 0.57 2.63 3.83 High Test performed at [facility] on a Binding Site Optilite Analyzer that uses a turbidime tric method for analysis. Patient testing should not be performed using multiple methodolo gies due to analytica l variation seen between test methodolo gies. FINAL Marlene Guzmán * [facility] , [address] [facility] [address] [id number] 0 03/09 Free kappa / lambd a with K/L ratio , serum K/L light chain ratio , free, serum 0.26 1.65 1.14% FINAL Marlene Guzmán * [facility] , [address] [facility] [address] [id number] 0 03/09 CMP Album in g/dL 3.5 5.0 3.8 FINAL Marlene Guzmán * [facility] , [address] [facility] [id number] 0 03/09 CMP Alkal ine phosp hatas e U/L 36.0 125.0 106 FINAL Marleneanabel Guzmán * [facility] , [address] [facility] [id number] 0 03/09 CMP ALT/S GPT U/L 0.0 34.0 37 High FINAL Marlene Guzmán * [facility] , [address] [facility] [id number] 0 03/09 CMP AST/S GOT U/L 14.0 36.0 36 FINAL Marlene Guzmán * [facility] , [address] [facility] [id number] 0 03/09 CMP BUN mg/dL 7.0 17.0 18.0 High FINAL Marlene Guzmán * [facility] , [address] [facility] [id number] 0 03/09 CMP Calci um mg/dL 8.4 10.2 8.9 FINAL Marleneanabel Guzmán * [facility] , [address] [facility] [id number] 0 03/09 CMP Chlor nilson mmol/L 96.0 107.0 99 FINAL Marleneanabel Guzmán * [facility] , [address] [facility] [id number] 0 03/09 CMP CO2 mmol/L 22.0 30.0 [...] * [facility] , [address] [facility] [address] [facility] [id number] 0 03/09 CMP Creat inine mg/dL 0.66 1.25 0.70 FINAL Marleneanabel Guzmán * [facility] , [address] [facility] [address] [facility] [id number] 0 03/09 CMP GFR estim ate ml/min /1.73m ^2 97.1 GFR is calculate d using the CKD-EPI equation. FINAL Marleneanabel Guzmán * [facility] , [address] [facility] [address] [facility] [id number] 0 03/09 CMP Gluco se mg/dL 74.0 100.0 363 Criti sami High FINAL Marlene Guzmán * [facility] , [address] [facility] [address] [facility] [id number] 0 03/09 CMP Potas sium mmol/L 3.5 5.1 3.9 FINAL Marlene Ramirez * [facility] , [address] [facility] [address] [facility] [id number] 0 03/09 CMP Sodiu m mmol/L 137.0 145.0 134 Low FINAL Marleneanabel Guzmán * [facility] , [address] [facility] [address] [facility] [id number] 0 03/09 CMP Bilir ubin, total mg/dL 0.2 1.3 1.1 FINAL Marleneanabel Guzmán * [facility] , [address] [facility] [address] [facility] [id number] 0 03/09 CMP Total prote in g/dL 6.3 8.2 7.3 FINAL Marlene Guzmán * [facility] , [address] [facility] [address] [facility] [id number] 0 03/09 CBC w/ auto diff WBC K/uL 3.0 8.9 7.1 FINAL Marlene Guzmán [place] [facility] , [address] [place] [id number] 0 03/09 CBC w/ auto diff HGB g/dL 11.3 15.2 14.4 FINAL Marlene Guzmán [place] [facility] , [address] [place] [id number] 0 03/09 CBC w/ auto diff PLT K/uL 113.0 364.0 179 FINAL Marlene Guzmán [place] [facility] , [address] [place] [id number] 0 03/09 CBC w/ auto diff Tammy # (ANC) K/uL 1.6 6.6 4.7 FINAL Marlene Guzmán [facility] [place] [facility] , [address] [place] [id number] 0 03/09 CBC w/ auto diff Tammy % % 43.0 74.0 65.7 FINAL Marlene Guzmán [place] [facility] , [address] [place] [id number] 0 03/09 CBC w/ auto diff IG % % 0.0 0.5 0.6 High FINAL Marlene Guzmán [place] [facility] , [address] [place] [id number] 0 03/09 CBC w/ auto diff IG # K/uL 0.0 0.03 0.04 High FINAL Marlene Guzmán [place] [facility] , [address] [place] [id number] 0 03/09 CBC w/ auto diff LY % % 14.0 41.0 25.8 FINAL Marlene Guzmán [place] [facility] , [address] [place] [id number] 0 03/09 CBC w/ auto diff MO % % 6.0 15.0 6.2 FINAL Marlene Guzmán [place] [facility] , [address] [place] [id number] 0 03/09 CBC w/ auto diff EO % % 0.0 7.0 1.1 FINAL Marlene Guzmán [place] [facility] , [address] [place] [id number] 0 03/09 CBC w/ auto diff BA % % 0.0 2.0 0.6 FINAL Marlene Guzmán [place] [facility] , [address] [place] [id number] 0 03/09 CBC w/ auto diff LY # K/uL 0.4 3.6 1.8 FINAL Marlene Guzmán [place] [facility] , [address] [place] [id number] 0 03/09 CBC w/ auto diff MO # K/uL 0.2 1.3 0.4 FINAL Marlene Guzmán [place] [facility] , [address] [place] [id number] 0 03/09 CBC w/ auto diff EO # K/uL 0.0 0.6 0.1 FINAL Marlene Guzmán [place] [facility] , [address] [place] [id number] 0 03/09 CBC w/ auto diff BA # K/uL 0.0 0.2 0.0 FINAL Marlene Guzmán [place] [facility] , [address] [place] [id number] 0 03/09 CBC w/ auto diff NRBC % #/100W BC 0.0 0.2 0.0 FINAL Marlene Guzmán [place] [facility] , [address] [place] [id number] 0 03/09 CBC w/ auto diff RBC M/uL 3.9 5.1 5.08 FINAL Marlene Guzmán [place] [facility] , [address] [place] [id number] 0 03/09 CBC w/ auto diff HCT % 35.0 48.0 42.9 FINAL Marlene Guzmán [facility] [place] [facility] , [address] [place] [id number] 0 03/09 CBC w/ auto diff MCV fL 80.0 104.0 84.4 FINAL Marlene Guzmán [facility] - [place] [facility] , [address] [place] [id number] 0 03/09 CBC w/ auto diff MCH pg 26.0 35.0 28.3 FINAL Marlene Guzmán [facility] - [place] [facility] , [address] [place] [id number] 0 03/09 CBC w/ auto diff MCHC g/dL 30.0 35.0 33.6 FINAL Marlene Guzmán [facility] [place] [facility] , [address] [place] [id number] 0 03/09 CBC w/ auto diff MPV fL 9.5 13.4 9.6 FINAL Marlene Guzmán [place] [facility] , [address] [place] [id number] 0 03/09 CBC w/ auto diff RDW % 11.4 16.1 14.20 FINAL Marlene Guzmán [facility] , [address] [facility] [id number] 0 03/09 Total prote in g/dL 6.3 8.2 7.1 FINAL Marlene Guzmán * [facility] , [address] [facility] [address] [facility] [id number] 0 03/09 Album in, SPE g/dL 3.31 5.31 4.70 FINAL Marlene Guzmán * [facility] , [address] [facility] [address] [id number] 0 03/09 Alpha -1 globu tony g/dL 0.19 0.42 0.23 FINAL Marlene Guzmán * [facility] , [address] [facility] [address] [id number] 0 03/09 Alpha -2 globu toyn g/dL 0.44 1.03 0.52 FINAL Marlene Guzmán * [facility] , [address] [facility] [address] [id number] 0 03/09 Beta globu tony g/dL 0.52 1.05 0.80 FINAL Marlene Guzmán * [facility] , [address] [id number] 0 03/09 Gamma globu tony g/dL 0.59 1.46 0.85 FINAL Marlene Guzmán * [facility] , [address] [id number] 0 03/09 Gemma Rodriguez in Lab resul t note Previou sly identif ied parapro teins detecte d in gamma region. Is now 0.3 and 0.4 gm/dL. Interpr eted and signed by Luis Guillermo MD on 025 FINAL Marlene Guzmán * [facility] , [address] [facility] [id number] 03/09 M-spi ke, SPE, g/dL g/dL 0.0 0.0 0.3 High FINAL Marlene Guzmán * [facility] , [address] [facility] [id number] 0 03/09 M-spi ke 2, SPE g/dL 0.0 0.0 0.4 High FINAL Marlene Guzmán * [facility] , [address] [facility] [id number] 0 03/09 Immun oglob ulin measu remen t IgG, quant mg/dL 610.0 1616.0 1080.49 Test performed at [facility] on a Binding Site Optilite Analyzer that uses a turbidime tric method for analysis. Patient testing should not be performed using multiple methodolo gies due to analytica l variation seen between test methodolo gies. FINAL Marlene Guzmán * [facility] , [address] [facility] [id number] 0 03/09 Immun oglob ulin measu remen t IgA, quant mg/dL 61.0 348.0 577.26 High Test performed at [facility] on a Binding Site Optilite Analyzer that uses a turbidime tric method for analysis. Patient testing should not be performed using multiple methodolo gies due to analytica l variation seen between test methodolo gies. FINAL Marlene Guzmán * [facility] , [address] [facility] [id number] 0 03/09 Immun oglob ulin measu remen t IgM, quant mg/dL 35.0 242.0 91.00 Test performed at [facility] on a Binding Site Optilite Analyzer that uses a turbidime tric method for analysis. Patient testing should not be performed using multiple methodolo gies due to analytica l variation seen between test methodolo josefina. FINAL Marlene Guzmán * [facility] , [address] [facility] [id number] 0 04/03 [facility] [place] See attache malave Medications Date [...] 04/10/2025 Body Temperature 97.50 Notes Section * THEATRICAL TROUPER Onc Consult Note (Amended) GYNECOLOGIC ONCOLOGY CONSULT Patient Name: VERO HENRY Patient : 1960 Patient Referring Physician: Malissa Hernandez MD (FLOORING GRADER) Primary GYNOncologist: Marlene Guzmán (Hematology/Oncology) Date of Service: 08/03/2023 Reason for Consult: I was asked by Dr. Malissa Hernandez to see Vero Henry in regard to a recent diagnosis of EIN/CAH. History of Present Illness (Director Broadcast Oncology): 63 y.o.?? 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 Anxious, , female with somewhat [...] record:05/23/2019 Last record:05/23/2019; ) Assessment & Plan (Director Broadcast Oncology): 63?? y.o. 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
--- OUTSIDE RECORDS SUMMARY | 2025-07-06 23:30 | XMS_ITS ---
Author Organization [facility] Care Team Providers Care Analytical Chemistry Teacher Name Role Phone Peggy Frausto Unavailable Unavailable Suzanne Henson Unavailable Unavailable Allergies and adverse reactions Code CodeSystem Substance Reaction Severity StartDate Concern Status Abilify Unknown 05/11/2023 active 2231 RXNORM Cephalexin Unknown 05/11/2023 active 19961 RXNORM Gabapentin Unknown 05/11/2023 active Latuda Unknown 05/11/2023 active 6809 RXNORM metFORMIN Unknown 05/11/2023 active 6918 RXNORM Metoprolol Unknown 05/11/2023 active 6922 RXNORM metroNIDAZOLE Unknown 05/11/2023 active 97815 RXNORM risperiDONE Unknown 05/11/2023 active Saphris Unknown 05/11/[address] Statins Unknown 05/11/[address] Sulfa Antibiotics Unknown 05/11/2023 active 483066 RXNORM Tolterodine Unknown 05/11/2023 active 99515 RXNORM Triamcinolone Unknown 05/11/2023 active 62410 RXNORM Trimethoprim Unknown 05/11/2023 active 61444 RXNORM Vancomycin Unknown 05/11/2023 active Care Team Name Role Address Phone Organization Dates Mohammad Arbabi PCP [address], [place], [address], [place] (Office): : [facility] 05/11/2023 - 05/19/2023 Peggy Frausto [address], [place], [address], [place] (Office): : [facility] 05/11/2023 - 05/19/2023 Immunizations Immunization Status Vaccine Details Vaccine Code CodeSystem Date Notes Hepatitis B completed hepatitis B vaccine, adult dosage 43 CVX created date: 05/13/2023 administere d date: 09/30/2005 3 of 3 Tdap completed tetanus toxoid, reduced diphtheria toxoid, and acellular pertussis vaccine, adsorbed 115 CVX created date: 05/13/2023 administere d date: 05/19/2016 Pneumococcal 23 completed pneumococcal polysaccharide vaccine, 23 valent 33 CVX created date: 05/13/2023 administere d date: 10/25/2014 SARS-COV-2 (COVID-19) completed SARS-COV-2 (COVID-19) vaccine, mRNA, spike protein, LNP, preservative free, 30 mcg/0.3mL dose Mfg: PFIZER Step 2 of Multi-step with next step required 208 CVX created date: 05/13/2023 consent date: 05/13/2023 administere d date: 12/25/2020 SARS-COV-2 (COVID-19) completed SARS-COV-2 (COVID-19) vaccine, mRNA, spike protein, LNP, preservative free, 30 mcg/0.3mL dose Mfg: PFIZER Step 1 of Multi-step with next step required 208 CVX created date: 05/13/2023 administere d date: 12/04/2020 Booster Vaccine Pfizer completed SARS-COV-2 (COVID-19) vaccine, mRNA, spike protein, LNP, preservative free, 30 mcg/0.3mL dose Mfg: PFIZER 208 CVX created date: 05/13/2023 administere d date: 07/02/2021 Mental Status Section Date Assessment Total Score Description 05/19/2023 BIMS 15 cognitively int act CAM 0 No delirium ind icated PHQ-9 02 minimal depress ion 05/17/2023 BIMS 15 cognitively int act CAM 0 No delirium ind icated PHQ-9 02 minimal depress ion Insurance Providers Problems Problem # Description Date of onset Resolved Date Code CodeSystem Concern Status 1 CELLULITIS OF RIGHT TOE [address] active 2 DEPRESSION, UNSPECIFIED [address] active 3 DRUG INDUCED SUBACUTE DYSKINESIA [address] active 4 GENERALIZED ANXIETY DISORDER [address] active 5 LUMBAGO WITH SCIATICA, RIGHT SIDE [address] active 6 MORBID (SEVERE) OBESITY DUE TO EXCESS CALORIES [address] active 7 MUSCLE WEAKNESS (GENERALIZED) [address] active 8 OBSTRUCTIVE SLEEP APNEA (ADULT) (PEDIATRIC) [address] active 9 OTHER ABNORMALITIES OF GAIT AND MOBILITY [address] active 10 TYPE 2 DIABETES MELLITUS WITH DIABETIC NEUROPATHY, UNSPECIFIED [address] active Reason for Referral No Reasons for Referral Entered Social History Social History Observation Description Start Date End Date Code Code System Current Smoking Status Tobacco smoking consumption unknown 437581729 SNOMED CT Sex Assigned At Female 1960 50826-2 [facility] Gender Identity Female [id number] [address] Sexual Orientation Choose not to disclose Vital Signs Code Code System Vitals Name Values and Units Timing Information 34092-8 [facility] Pain Level Value=7.0 05/19/2023 61063-1 LOINC Weight Fpgwz=484.8 Units=Lbs 2339-0 [facility] Blood Sugar Eilxe=943.0 Units=mg/dL 05/19/2023 9279-1 [facility] Respiratory Rate Value=17.0 Units=/m in 05/19/2023 8462-4 [facility] Blood Pressure-Diastolic Value=81 Un its=mmHg 05/19/2023 8480-6 [facility] Blood Pressure-Systolic Qitxy=001 Un its=mmHg 05/19/2023 8867-4 [facility] Heart rate Value=70.0 Units=/min 8310-5 [facility] Body Temperature Value=98.0 Units= F 05/19/2023 20587-4 [facility] O2 % BldC Oximetry Value=98.0 Units= % 05/19/2023 8302-2 [facility] Height Value=67.0 Units=Inches 05/13/2023
--- OUTSIDE RECORDS SUMMARY | 2025-07-06 23:30 | XMS_ITS ---
Author Name Interface, [id number] lity Address [address] [facility] [address] [place] [address] [facility] Address [address] [facility] [address] [place] [address] Support Name Relationship Address Phone Greg Ch [...] FINAL [facility] [place], [address] [place] [address] 210 [facility] [phone] Phone: () - 11/22 Appea ying (ua) Clear FINAL [facility] [place], [address] [place] [address] 210 [facility] [phone] Phone: () - 11/22 Gluco se (ua), qual 500.0% Abnor mal FINAL [facility] [place], [address] [facility] 210 [facility] [phone] 0 Phone: () - 11/22 Bilir ubin (ua) Negativ e FINAL [facility] [place], [address] [place] [address] 210 [facility] [phone] 0 Phone: () - 11/22 Urina lysis , aceto ne or keton e chapo s measu remen t Negativ e FINAL [facility] [place], [address] [facility] 210 [place] [phone] 0 Phone: () - 11/22 Speci fic gravi ty (ua) 1.005 1.02 1.025% Abnor mal FINAL [facility] [place], [address] [facility] 210 [place] [phone] 0 Phone: () - 11/22 Blood (ua) Negativ e FINAL [facility] [place], [address] [place] [address] 210 [place] [phone] 0 Phone: () - 11/22 pH (ua) 5.0 8.0 6.0% FINAL [facility] [place], [address] [place] [address] 210 [facility] [phone] 0 Phone: () - 11/22 Prote in (ua) Negativ e FINAL [facility] [place], [address] [place] [address] 210 [place] [phone] 0 Phone: () - 11/22 Urobi linog en (ua) 0.2 1.0 0.2% FINAL [facility] [place], [address] [place] [address] 210 [place] [phone] 0 Phone: () - 11/22 Nitri te (ua) Negativ e FINAL [facility] [place], [address] [place] [address] 210 [place] [phone] 0 Phone: () - 11/22 Leuko cyte jerson ase (ua), qual Negativ e FINAL [facility] [place], [address] [place] [address] 210 [place] [phone] 0 Phone: () - 11/22 UA comme nt 1 Dipstic k negativ e- Culture ordered per provide r FINAL [facility] [place], [address] [place] [address] 210 [place] [phone] 0 Phone: () - 11/22 Urine cultu re panel CULTU RE, URINE , ROUTI NE SEE NOTE Abnor mal CULTURE, URINE, ROUTINEMi microeconomics professor Number: [id number] est Status: FinalSpec imen Source: UrineSpec imen [...] f. FINAL Hafsa Bud [facility], [facility] [address] [facility] [id number] 4 12/18 [facility] other lab See negative turner d 04/18 Total prote in g/dL 6.3 8.2 6.9 FINAL Marlene Guzmán * [facility], [address] [facility] [address] [place] [address] [id number] 04/18 Album in, SPE g/dL 3.31 5.31 3.97 FINAL Marlene Guzmán * [facility], [facility]0 [facility] [address] [place] [address] [id number] 0 04/18 Alpha -1 globu tony g/dL 0.19 0.42 0.26 FINAL Marlene Guzmán * [facility], [facility]0 [facility] [address] [place] [address] [id number] 0 04/18 Alpha -2 globu tony g/dL 0.44 1.03 0.63 FINAL Marlene Guzmán * [facility] [address] [place] [address] [id number] 0 04/18 Beta globu tony g/dL 0.52 1.05 0.95 FINAL Marlene Guzmán * [facility], [address] [facility] [address] [place] [address] [id number] 0 04/18 Gamma globu tony g/dL 0.59 1.46 1.10 FINAL Marlene Guzmán * [facility], [address] [facility] [address] [place] [address] [id number] 0 04/18 Elect Gemma layton in Lab resul t note Previou sly identif ied parapro teins detecte d in gamma region. Were 0.3 and 0.4 gm/dL, now 0.3 and 0.3 gm/dL. Interpr eted and signed by Adrienne Swanson MD on 024 FINAL Marlene Guzmán * [facility], [facility]0 [facility] [address] [place] [address] [id number] 0 04/18 M-spi ke, SPE, g/dL g/dL 0.0 0.0 0.3 High FINAL Marleneanabel Guzmán * [facility], [address] [facility] [id number] 0 04/18 M-spi ke 2, SPE g/dL 0.0 0.0 0.3 High FINAL Marlene Guzmán * [facility], [address] [facility] [address] [facility] [id number] 0 04/18 Immun oglob ulin measu remen t IgG, quant mg/dL 610.0 1616.0 946.67 Test performed at [facility] on a Binding Site Optilite Analyzer that uses a turbidime tric method for analysis. Patient testing should not be performed using multiple methodolo gies due to analytica l variation seen between test methodolo gies. FINAL Marlene Guzmán * [facility], [address] [facility] [id number] 0 04/18 Immun oglob ulin measu remen t IgA, quant mg/dL 61.0 348.0 493.08 High Test performed at [facility] on a Binding Site Optilite Analyzer that uses a turbidime tric method for analysis. Patient testing should not be performed using multiple methodolo gies due to analytica l variation seen between test methodolo gies. FINAL Marlene Guzmán * [facility], [address] [id number] 0 04/18 Immun oglob ulin measu remen t IgM, quant mg/dL 35.0 242.0 75.62 Test performed at [facility] on a Binding Site Optilite Analyzer that uses a turbidime tric method for analysis. Patient testing should not be performed using multiple methodolo gies due to analytica l variation seen between test methodolo gies. FINAL Marlene Guzmán * [facility], [address] [facility] [id number] 0 04/18 Free kappa / lambd a with K/L ratio , serum Kennard light chain , free, serum , mg/dL mg/dL 0.33 1.94 3.62 High Test performed at [facility] on a Binding Site Optilite Analyzer that uses a turbidime tric method for analysis. Patient testing should not be performed using multiple methodolo gies due to analytica l variation seen between test methodolo gies. FINAL Marlene Stroud [facility], [address] [id number] 0 04/18 Free kappa / lambd a [...] gies. FINAL Marlene [facility], [address] [facility] [address] [id number] 0 04/18 Free kappa / lambd a with K/L ratio , serum K/L light chain ratio , free, serum 0.26 1.65 1.16% FINAL Marlene [facility] a [facility], [address] [facility] [address] [id number] 0 04/18 CBC w/ auto diff WBC K/uL 3.0 8.9 7.0 FINAL Marlene [facility] [place], [address] [facility] [address] [facility] [id number] 0 Phone: () - 04/18 CBC w/ auto diff HGB g/dL 11.3 15.2 14.0 FINAL [facility] [place], [address] [place] [id number] 0 Phone: () - 04/18 CBC w/ auto diff PLT K/uL 113.0 364.0 164 FINAL Marlene [facility] [place], [address] [place] [id number] 0 Phone: () - 04/18 CBC w/ auto diff Tammy # (ANC) K/uL 1.6 6.6 4.5 FINAL Marlene [facility] [place], [address] [place] [id number] 0 Phone: () - 04/18 CBC w/ auto diff Tammy % % 43.0 74.0 64.0 FINAL Marlene Ramirez [facility] [place], [address] [place] [id number] 0 Phone: () - 04/18 CBC w/ auto diff IG % % 0.0 0.5 0.3 FINAL Marlene Ramirez [facility] [place], [address] [place] [id number] 0 Phone: () - 04/18 CBC w/ auto diff IG # K/uL 0.0 0.03 0.02 FINAL Marlene Ramirez [facility] [place], [address] [place] [id number] 0 Phone: () - 04/18 CBC w/ auto diff LY % % 14.0 41.0 28.2 FINAL Marlene Guzmán [facility] [place], [address] [place] [id number] 0 Phone: () - 04/18 CBC w/ auto diff MO % % 6.0 15.0 6.0 FINAL Marlene Guzmán [facility] [place], [address] [place] [id number] 0 Phone: () - 04/18 CBC w/ auto diff EO % % 0.0 7.0 1.1 FINAL Marlene Ramirez [facility] - [place], [address] [place] [id number] 0 Phone: () - 04/18 CBC w/ auto diff BA % % 0.0 2.0 0.4 FINAL Marlene [facility] [place], [address] [place] [id number] 0 Phone: () - 04/18 CBC w/ auto diff LY # K/uL 0.4 3.6 2.0 FINAL Marlene [facility] [place], [address] [place] [id number] 0 Phone: () - 04/18 CBC w/ auto diff MO # K/uL 0.2 1.3 0.4 FINAL Marlene [facility] [place], [address] [place] [id number] 0 Phone: () - 04/18 CBC w/ auto diff EO # K/uL 0.0 0.6 0.1 FINAL Marlene [facility] [place], [address] [place] [id number] 0 Phone: () - 04/18 CBC w/ auto diff BA # K/uL 0.0 0.2 0.0 FINAL Marlene [facility] [place], [address] [place] [id number] 0 Phone: () - 04/18 CBC w/ auto diff NRBC % #/100W BC 0.0 0.2 0.0 FINAL Marlene [facility] [place], [address] [place] [id number] 0 Phone: () - 04/18 CBC w/ auto diff RBC M/uL 3.9 5.1 4.84 FINAL Marlene [facility] [place], [address] [place] [id number] 0 Phone: () - 04/18 CBC w/ auto diff HCT % 35.0 48.0 40.4 FINAL Marlene Guzmán [facility] [place], [address] [place] [id number] 0 Phone: () - 04/18 CBC w/ auto diff MCV fL 80.0 104.0 83.5 FINAL Marlene Guzmán [facility] [place], [address] [place] [id number] 0 Phone: () - 04/18 CBC w/ auto diff MCH pg 26.0 35.0 28.9 FINAL Marlene Guzmán [facility] [place], [address] [place] [id number] 0 Phone: () - 04/18 CBC w/ auto diff MCHC g/dL 30.0 35.0 34.7 FINAL Marlene Guzmán [facility] [place], [address] [place] [id number] 0 Phone: () - 04/18 CBC w/ auto diff MPV fL 9.5 13.4 9.7 FINAL Marlene Guzmán [facility] [place], [address] [place] [id number] 0 Phone: () - 04/18 CBC w/ auto diff RDW % 11.4 16.1 13.80 FINAL Marlene Guzmán [facility] [place], [address] [place] [id number] 0 Phone: () - 04/18 CMP Album in g/dL 3.5 5.0 4.0 FINAL Marlene Guzmán * [facility] [place], [address] [place] [id number] 0 04/18 CMP Alkal ine phosp hatas e U/L 36.0 125.0 105 FINAL Marlene Guzmán * [facility] [place], [address] [place] [id number] 0 04/18 CMP ALT/S GPT U/L 0.0 34.0 35 High FINAL Marlene Guzmán * [facility], [address] [facility] [address] [id number] 0 04/18 CMP AST/S GOT U/L 14.0 36.0 44 High FINAL Marlene Guzmán * [facility], [address] [facility] [address] [id number] 0 04/18 CMP BUN mg/dL 7.0 17.0 21.0 High FINAL Marlene Guzmán * [facility], [address] [facility] [address] [id number] 0 04/18 CMP Calci um mg/dL 8.4 10.2 8.8 FINAL Marlene Guzmán * [facility], [address] [facility] [address] [id number] 0 04/18 CMP Chlor nilson mmol/L 96.0 107.0 106 FINAL Marlene Guzmán * [facility], [address] [facility] [address] [id number] 0 04/18 CMP CO2 mmol/L 22.0 30.0 [...] hour stability window. FINAL Marlene Guzmán * [facility], [address] [facility] [address] [id number] 0 04/18 CMP Creat inine mg/dL 0.66 1.25 0.70 FINAL Marlene Guzmán * [facility], [address] [facility] [id number] 0 04/18 CMP GFR estim ate ml/min /1.73m ^2 97.7 GFR is calculate d using the CKD-EPI equation. FINAL Marlene Guzmán * [facility], [address] [facility] [id number] 0 04/18 CMP Gluco se mg/dL 74.0 100.0 267 High FINAL Marlene Guzmán * [facility], [address] [facility] [id number] 0 04/18 CMP Potas sium mmol/L 3.5 5.1 4.0 FINAL Marlene Guzmán * [facility], [address] [facility] [id number] 0 04/18 CMP Sodiu m mmol/L 137.0 145.0 136 Low FINAL Marlene Guzmán * [facility], [address] [facility] [id number] 0 04/18 CMP Bilir ubin, total mg/dL 0.2 1.3 1.0 FINAL Marlene Guzmán * [facility], [address] [facility] [id number] 0 04/18 CMP Total prote in g/dL 6.3 8.2 7.3 FINAL Marlene Guzmán * [facility], [address] [facility] [id number] 0 04/18 [facility] other lab See negative turner d 12/20 [facility] other lab See negative turner d 12/20 Misc other lab See negative turner d 03/09 Free kappa / lambd a with K/L ratio , serum Kennard light chain , free, serum , mg/dL mg/dL 0.33 1.94 4.35 High Test performed at [facility] on a Binding Site Optilite Analyzer that uses a turbidime tric method for analysis. Patient testing should not be performed using multiple methodolo gies due to analytica l variation seen between test methodolo gies. FINAL Marlene Guzmán * [facility] , [address] [facility] [address] [facility] [id number] 0 03/09 Free kappa / lambd a [...] Guzmán * [facility] , [address] [facility] [address] [id number] 0 03/09 Free kappa / lambd a with K/L ratio , serum K/L light chain ratio , free, serum 0.26 1.65 1.14% FINAL Marlene Guzmán * [facility] , [address] [facility] [address] [id number] 0 03/09 CMP Album in g/dL 3.5 5.0 3.8 FINAL Marlene Guzmán * [facility] , [address] [facility] [address] [id number] 0 03/09 CMP Alkal ine phosp hatas e U/L 36.0 125.0 106 FINAL Marlene Guzmán * [facility] , [address] [facility] [address] [id number] 0 03/09 CMP ALT/S GPT U/L 0.0 34.0 37 High FINAL Marlene Guzmán * [facility] , [address] [facility] [address] [id number] 0 03/09 CMP AST/S GOT U/L 14.0 36.0 36 FINAL Marlene Ramirez * [facility] , [address] [facility] [address] [facility] [id number] 0 03/09 CMP BUN mg/dL 7.0 17.0 18.0 High FINAL Marlene Guzmán * [facility] , [address] [facility] [address] [facility] [id number] 0 03/09 CMP Calci um mg/dL 8.4 10.2 8.9 FINAL Marlene Guzmán * [facility] , [address] [facility] [address] [facility] [id number] 0 03/09 CMP Chlor nilson mmol/L 96.0 107.0 99 FINAL Marlene Guzmán * [facility] , [address] [facility] [address] [facility] [id number] 0 03/09 CMP CO2 mmol/L 22.0 30.0 [...] hour stability window. FINAL Marlene Guzmán * [facility] , [address] [facility] [address] [facility] [id number] 0 03/09 CMP Creat inine mg/dL 0.66 1.25 0.70 FINAL Marlene Guzmán * [facility] , [address] [facility] [address] [facility] [id number] 0 03/09 CMP GFR estim ate ml/min /1.73m ^2 97.1 GFR is calculate d using the CKD-EPI equation. FINAL Marlene Guzmán * [facility] , [address] [facility] [address] [id number] 0 03/09 CMP Gluco se mg/dL 74.0 100.0 363 Criti sami High FINAL Marlene Guzmán * [facility] , [address] [facility] [address] [facility] [id number] 0 03/09 CMP Potas sium mmol/L 3.5 5.1 3.9 FINAL Marlene Guzmán * [facility] , [address] [facility] [address] [facility] [id number] 0 03/09 CMP Sodiu m mmol/L 137.0 145.0 134 Low FINAL Marlene Guzmán * [facility] , [address] [facility] [address] [facility] [id number] 0 03/09 CMP Bilir ubin, total mg/dL 0.2 1.3 1.1 FINAL Marlene Guzmán * [facility] , [address] [facility] [address] [facility] [id number] 0 03/09 CMP Total prote in g/dL 6.3 8.2 7.3 FINAL Marlene Guzmán * [facility] , [address] [facility] [address] [facility] [id number] 0 03/09 CBC w/ auto diff WBC K/uL 3.0 8.9 7.1 FINAL Marlene Guzmán [place] [facility] [place] [facility] , [address] [place] [id number] 0 03/09 CBC w/ auto diff HGB g/dL 11.3 15.2 14.4 FINAL Marlene Guzmán [place] [facility] [place] [facility] , [address] [place] [id number] 0 03/09 CBC w/ auto diff PLT K/uL 113.0 364.0 179 FINAL Marlene Guzmán [place] [facility] [place] [facility] , [address] [place] [id number] 0 03/09 CBC w/ auto diff Tammy # (ANC) K/uL 1.6 6.6 4.7 FINAL Marlene Guzmán [place] [facility] [place] [facility] , [address] [place] [id number] 0 03/09 CBC w/ auto diff Tammy % % 43.0 74.0 65.7 FINAL Marlene Guzmán [place] [facility] [place] [facility] , [address] [place] [id number] 0 03/09 CBC w/ auto diff IG % % 0.0 0.5 0.6 High FINAL Marlene Guzmán [place] [facility] [place] [facility] , [address] [place] [id number] 0 03/09 CBC w/ auto diff IG # K/uL 0.0 0.03 0.04 High FINAL Marlene Guzmán [place] [facility] [place] [facility] , [address] [place] [id number] 0 03/09 CBC w/ auto diff LY % % 14.0 41.0 25.8 FINAL Marlene Guzmán [place] [facility] [place] [facility] , [address] [place] [id number] 0 03/09 CBC w/ auto diff MO % % 6.0 15.0 6.2 FINAL Marlene Guzmán [place] [facility] [place] [facility] , [address] [place] [id number] 0 03/09 CBC w/ auto diff EO % % 0.0 7.0 1.1 FINAL Marlene Guzmán [place] [facility] [place] [facility] , [address] [place] [id number] 0 03/09 CBC w/ auto diff BA % % 0.0 2.0 0.6 FINAL Marlene Guzmán [place] [facility] [place] [facility] , [address] [place] [id number] 0 03/09 CBC w/ auto diff LY # K/uL 0.4 3.6 1.8 FINAL Marlene Guzmán [place] [facility] [place] [facility] , [address] [place] [id number] 0 03/09 CBC w/ auto diff MO # K/uL 0.2 1.3 0.4 FINAL Marlene Guzmán [place] [facility] [place] [facility] , [address] [place] [id number] 0 03/09 CBC w/ auto diff EO # K/uL 0.0 0.6 0.1 FINAL Marlene Guzmán [place] [facility] [place] [facility] , [address] [place] [id number] 0 03/09 CBC w/ auto diff BA # K/uL 0.0 0.2 0.0 FINAL Marlene Guzmán [place] [facility] [place] [facility] , [address] [place] [id number] 0 03/09 CBC w/ auto diff NRBC % #/100W BC 0.0 0.2 0.0 FINAL Marlene Guzmán [place] [facility] [place] [facility] , [address] [place] [id number] 0 03/09 CBC w/ auto diff RBC M/uL 3.9 5.1 5.08 FINAL Marlene Guzmán [place] [facility] [place] [facility] , [address] [place] [id number] 0 03/09 CBC w/ auto diff HCT % 35.0 48.0 42.9 FINAL Marlene Guzmán [facility] , [address] [place] [facility] [id number] 0 03/09 CBC w/ auto diff MCV fL 80.0 104.0 84.4 FINAL Marlene Guzmán [facility] , [address] [facility] [address] [place] [facility] [id number] 0 03/09 CBC w/ auto diff MCH pg 26.0 35.0 28.3 FINAL Marlene Guzmán [facility] , [address] [facility] [address] [facility] [id number] 0 03/09 CBC w/ auto diff MCHC g/dL 30.0 35.0 33.6 FINAL Marlene Guzmán [facility] , [address] [facility] [address] [facility] [id number] 0 03/09 CBC w/ auto diff MPV fL 9.5 13.4 9.6 FINAL Marlene Guzmán [facility] , [address] [facility] [address] [facility] [id number] 0 03/09 CBC w/ auto diff RDW % 11.4 16.1 14.20 FINAL Marlene Guzmán [facility] , [address] [facility] [address] [facility] [id number] 0 03/09 Immun oglob ulin measu remen t IgG, quant mg/dL 610.0 1616.0 1080.49 Test performed at [facility] on a Binding Site Optilite Analyzer that uses a turbidime tric method for analysis. Patient testing should not be performed using multiple methodreal rocha due to analytica l variation seen between test methodreal rocha. FINAL Marlene Guzmán * [facility] , [address] [facility] [id number] 0 03/09 Immun oglob ulin measu remen [...] Marlene Guzmán * [facility] , [facility] [address] [id number] 0 03/09 Immun oglob ulin measu remen t IgM, quant mg/dL 35.0 242.0 91.00 Test performed at [facility] on a Binding Site Optilite Analyzer that uses a turbidime tric method for analysis. Patient testing should not be performed using multiple methodolo gies due to analytica l variation seen between test methodolo gies. FINAL Marlene Guzmán * [facility] , [facility]0 [facility] [address] [id number] 0 03/09 Total prote in g/dL 6.3 8.2 7.1 FINAL Marlene Guzmán * [facility] , [facility]0 [facility] [address] [place] [address] [id number] 0 03/09 Album in, SPE g/dL 3.31 5.31 4.70 FINAL Marlene Guzmán * [facility] , [facility]0 [facility] [address] [id number] 0 03/09 Alpha -1 globu tony g/dL 0.19 0.42 0.23 FINAL Marlene Guzmán * [facility] , [facility]0 [facility] [address] [id number] 0 03/09 Alpha -2 globu tony g/dL 0.44 1.03 0.52 FINAL Marlene Guzmán * [facility] , [facility] [address] [id number] 0 03/09 Beta globu tony g/dL 0.52 1.05 0.80 FINAL Marlene Guzmán * [facility] , [address] [facility] [address] [id number] 0 03/09 Gamma globu tony g/dL 0.59 1.46 0.85 FINAL Marlene Guzmán * [facility] , [address] [facility] [address] [id number] 03/09 Elect Gemma layton in Lab resul t note Previou sly identif ied parapro teins detecte d in gamma region. Is now 0.3 and 0.4 gm/dL. Interpr eted and signed by Luis Guillermo MD on 025 FINAL Marlene Guzmán * [facility] , [facility] [facility] [address] [id number] 03/09 M-spi ke, SPE, g/dL g/dL 0.0 0.0 0.3 High FINAL Marlene Guzmán * [facility] , [address] [facility] [address] [id number] 03/09 M-spi ke 2, SPE g/dL 0.0 0.0 0.4 High FINAL Marlene Guzmán * [facility] , [address] [facility] [address] [id number] 04/03 Misc other lab See negative turner d Medications Date Name Route Dose Frequency [...] 70 04/10/2025 BMI 53.23 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 History of Present Illness ([facility]): 63 y.o.?? 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 Anxious, , female tearful??throughout visit. [...] record:05/23/2019 Last record:05/23/2019; ) Assessment & Plan ([facility]): 63?? y.o. with abnormal uterine bleeding/PMB [...]
--- OUTSIDE RECORDS SUMMARY | 2025-07-06 23:31 | XMS_ITS ---
Author Name Interface, [id number] lity Address [address] [facility] [address] [place] [address] [facility] Oncology Address [address] [place] [address] Support Name Relationship Address Phone Greg Henry [...] [facility] lab See student services coordinator d 11/08 [facility] other lab See student services coordinator d 11/22 Color (ua) Yellow FINAL Hafsa Bud [place] [facility] [place], [address] [facility] [address] [place] [phone] Phone: () - 11/22 Appea ying (ua) Clear FINAL Hafsaanabel Rubi a [facility] - [place], [address] [place] [address] [address] [place] [phone] Phone: () - 11/22 Gluco se (ua), qual 500.0% Abnor mal FINAL Hafsaanabel Rubi a [facility] - [place], [address] [place] [address] [address] [place] [phone] Phone: () - 11/22 Bilir ubin (ua) Negativ e FINAL Hafsaanabel Rubi a [facility] - [place], [address] [place] [address] [address] [place] [phone] Phone: () - 11/22 Urina lysis , aceto ne or keton e chapo s measu remen t Negativ e FINAL Hafsaanabel Rubi [facility] - [place], [address] [place] [address] [address] [place] [phone] 0 Phone: () - 11/22 Speci fic gravi ty (ua) 1.005 1.02 1.025% Abnor mal FINAL Hafsaanabel Rubi [facility] - [place], [address] [place] [address] [address] [place] [phone] 0 Phone: () - 11/22 Blood (ua) Negativ e FINAL Hafsaanabel Rubi a [facility] - [place], [address] [place] [address] [address] [place] [phone] 0 Phone: () - 11/22 pH (ua) 5.0 8.0 6.0% FINAL Hafsaanabel [place] [facility] - [place], [address] [place] [address] [address] [place] [phone] 0 Phone: () - 11/22 Prote in (ua) Negativ e FINAL Hafsaanabel Rubi a [facility] - [place], [address] [place] [address] [address] [place] [phone] 0 Phone: () - 11/22 Urobi linog en (ua) 0.2 1.0 0.2% FINAL Hafsaanabel [facility] [facility] - [place], [address] [place] [address] 210 [facility] [phone] 0 Phone: () - 11/22 Nitri te (ua) Negativ e FINAL Hafsa Rubi a [facility], [address] [place] [address] 210 [facility] [phone] 0 Phone: () - 11/22 Leuko cyte jerson ase (ua), qual Negativ e FINAL Hafsa Rubi [facility], [address] [place] [address] [phone] Phone: () - 11/22 UA comme nt 1 Dipstic k negativ e- Culture ordered per provide r FINAL Hafsa Rubi [facility], [address] [place] [address] [phone] Phone: () - 11/22 Urine cultu re panel CULTU RE, URINE , ROUTI NE SEE NOTE Abnor mal 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 FINAL Hafsaanabel Farrell [facility] [address] [facility] [id number] 4 12/18 [facility] other lab See d 04/18 Total prote in g/dL 6.3 8.2 6.9 FINAL Marlene Guzmán * [facility] [address] [place] [address] [id number] 04/18 Album in, SPE g/dL 3.31 5.31 3.97 FINAL Marlene Guzmán * [facility] [address] [place] [address] [id number] 04/18 Alpha -1 globu tony g/dL 0.19 0.42 0.26 FINAL Marlene Guzmán * [facility], [address] [id number] 0 04/18 Alpha -2 globu tony g/dL 0.44 1.03 0.63 FINAL Marlene Guzmán * [facility], [address] [id number] 0 04/18 Beta globu tony g/dL 0.52 1.05 0.95 FINAL Marlene Guzmán * [facility], [address] [id number] 0 04/18 Gamma globu tony g/dL 0.59 1.46 1.10 FINAL Marlene Guzmán * [facility] [address] [place] [address] [id number] 0 04/18 Elect abiola jackson Gemma in Lab resul t note Previou sly identif ied parapro teins detecte d in gamma region. Were 0.3 and 0.4 gm/dL, now 0.3 and 0.3 gm/dL. Interpr eted and signed by Adrienne Swanson MD on 024 FINAL Marlene Guzmán * [facility], [facility] [address] [place] [address] [id number] 04/18 M-spi ke, SPE, g/dL g/dL 0.0 0.0 0.3 High FINAL Marlene Guzmán * [facility], [address] [facility] [address] [id number] 04/18 M-spi ke 2, SPE g/dL 0.0 0.0 0.3 High FINAL Marlene Guzmán * [facility] [address] [place] [address] [id number] 04/18 Immun oglob ulin measu remen t IgG, quant mg/dL 610.0 1616.0 946.67 Test performed at [facility] on a Binding Site Optilite Analyzer that uses a turbidime tric method for analysis. Patient testing should not be performed using multiple methodreal gikim due to analytica l variation seen between test methodreal rocha. FINAL Marlene Guzmán * [facility] [address] [place] [address] [id number] 0 04/18 Immun oglob ulin measu remen t IgA, quant mg/dL 61.0 348.0 493.08 High Test performed at [facility] on a Binding Site Optilite Analyzer that uses a turbidime tric method for analysis. Patient testing should not be performed using multiple methodolo gies due to analytica l variation seen between test methodolo gies. FINAL Marlene Stroud [facility] [address] [place] [address] [id number] 0 04/18 Immun oglob ulin measu remen t IgM, quant mg/dL 35.0 242.0 75.62 Test performed at [facility] on a Binding Site Optilite Analyzer that uses a turbidime tric method for analysis. Patient testing should not be performed using multiple methodolo gies due to analytica l variation seen between test methodolo gies. FINAL Marlene Stroud [facility] a [address] [place] [address] [id number] 0 04/18 Free kappa / lambd a with K/L ratio , serum [place] light chain , free, serum , mg/dL mg/dL 0.33 1.94 3.62 High Test performed at [facility] on a Binding Site Optilite Analyzer that uses a turbidime tric method for analysis. Patient testing should not be performed using multiple methodolo gies due to analytica l variation seen between test methodolo gies. FINAL Marlene Guzmán * Jann a [address] [place] [address] [id number] 0 04/18 Free kappa / lambd a with K/L ratio , serum Lambd a light chain , free, serum , mg/dL mg/dL 0.57 2.63 3.13 High Test performed at [facility] on a Binding Site Optilite Analyzer that uses a turbidime tric method for analysis. Patient testing should not be performed using multiple methodolo gies due to analytica l variation seen between test methodolo gies. FINAL Marlene Stroud [facility] [address] [place] [address] [id number] 0 04/18 Free kappa / lambd a with K/L ratio , serum K/L light chain ratio , free, serum 0.26 1.65 1.16% FINAL Marlene Guzmán * [place] [facility] [place], [address] [facility] [place] [id number] 0 04/18 CBC w/ auto diff WBC K/uL 3.0 8.9 7.0 FINAL Marlene [place] [facility] - [place], [address] [place] [id number] 0 Phone: () - 04/18 CBC w/ auto diff HGB g/dL 11.3 15.2 14.0 FINAL Marlene Rubi a [facility] - [place], [address] [place] [id number] 0 Phone: () - 04/18 CBC w/ auto diff PLT K/uL 113.0 364.0 164 FINAL Marlene Rubi a [facility] - [place], [address] [place] [id number] 0 Phone: () - 04/18 CBC w/ auto diff Tammy # (ANC) K/uL 1.6 6.6 4.5 FINAL Marlene pagan [facility] - [place], [address] [place] [id number] 0 Phone: () - 04/18 CBC w/ auto diff Tammy % % 43.0 74.0 64.0 FINAL Marlene pagan [facility] - [place], [address] [place] [id number] 0 Phone: () - 04/18 CBC w/ auto diff IG % % 0.0 0.5 0.3 FINAL Marlene Rubi a [facility] - [place], [address] [place] [id number] 0 Phone: () - 04/18 CBC w/ auto diff IG # K/uL 0.0 0.03 0.02 FINAL Marlene Rubi a [facility] - [place], [address] [place] [id number] 0 Phone: () - 04/18 CBC w/ auto diff LY % % 14.0 41.0 28.2 FINAL Marlene pagan [facility] - [place], [address] [place] [id number] 0 Phone: () - 04/18 CBC w/ auto diff MO % % 6.0 15.0 6.0 FINAL Marlene pagan [facility] - [place], [address] [place] [id number] 0 Phone: () - 04/18 CBC w/ auto diff EO % % 0.0 7.0 1.1 FINAL Marlene pagan [facility] - [place], [address] [place] [id number] 0 Phone: () - 04/18 CBC w/ auto diff BA % % 0.0 2.0 0.4 FINAL Marlene pagan [facility] - [place], [address] [place] [id number] 0 Phone: () - 04/18 CBC w/ auto diff LY # K/uL 0.4 3.6 2.0 FINAL Marlene pagan [facility] - [place], [address] [place] [id number] 0 Phone: () - 04/18 CBC w/ auto diff MO # K/uL 0.2 1.3 0.4 FINAL Marlene pagan [facility] - [place], [address] [place] [id number] 0 Phone: () - 04/18 CBC w/ auto diff EO # K/uL 0.0 0.6 0.1 FINAL Marlene pagan [facility] - [place], [address] [place] [id number] 0 Phone: () - 04/18 CBC w/ auto diff BA # K/uL 0.0 0.2 0.0 FINAL Marlene pagan [facility] - [place], [address] [place] [id number] 0 Phone: () - 04/18 CBC w/ auto diff NRBC % #/100W BC 0.0 0.2 0.0 FINAL Marlene [place] [facility] - [place], [address] [place] [id number] 0 Phone: () - 04/18 CBC w/ auto diff RBC M/uL 3.9 5.1 4.84 FINAL Marlene [place] [facility] - [place], [address] [place] [id number] 0 Phone: () - 04/18 CBC w/ auto diff HCT % 35.0 48.0 40.4 FINAL Marlene Ramirez [facility] - [place], [address] [place] [id number] 0 Phone: () - 04/18 CBC w/ auto diff MCV fL 80.0 104.0 83.5 FINAL Marlene Ramirez [facility] - [place], [address] [place] [id number] 0 Phone: () - 04/18 CBC w/ auto diff MCH pg 26.0 35.0 28.9 FINAL Marlene Guzmán [facility] - [place], [address] [place] [id number] 0 Phone: () - 04/18 CBC w/ auto diff MCHC g/dL 30.0 35.0 34.7 FINAL Marlene Guzmán [facility] - [place], [address] [place] [id number] 0 Phone: () - 04/18 CBC w/ auto diff MPV fL 9.5 13.4 9.7 FINAL Marlene Guzmán [facility] - [place], [address] [place] [id number] 0 Phone: () - 04/18 CBC w/ auto diff RDW % 11.4 16.1 13.80 FINAL Marlene Guzmán [place] [facility] [place], [address] [facility] [place] [id number] 0 Phone: ( 04/18 CMP Album in g/dL 3.5 5.0 4.0 FINAL Marlene Guzmán * [place] [facility] [place], [address] [facility] [id number] 0 04/18 CMP Alkal ine phosp hatas e U/L 36.0 125.0 105 FINAL Marlene Guzmán * [place] [facility], [address] [facility] [id number] 0 04/18 CMP ALT/S GPT U/L 0.0 34.0 35 High FINAL Marlene Guzmán * [place] [facility], [address] [facility] [id number] 0 04/18 CMP AST/S GOT U/L 14.0 36.0 44 High FINAL Marlene Guzmán * [place] [facility], [address] [facility] [id number] 0 04/18 CMP BUN mg/dL 7.0 17.0 21.0 High FINAL Marlene Guzmán * [place] [facility], [address] [facility] [id number] 0 04/18 CMP Calci um mg/dL 8.4 10.2 8.8 FINAL Marlene Guzmán * [place] [facility], [address] [facility] [id number] 04/18 CMP Chlor nilson mmol/L 96.0 107.0 106 FINAL Marlene Guzmán * [place] [facility], [address] [facility] [id number] 04/18 CMP CO2 mmol/L 22.0 30.0 [...] 96 hour stability window. FINAL [facility]oud [facility] [address] [id number] 0 04/18 CMP Creat inine mg/dL 0.66 1.25 0.70 FINAL Marlene Guzmán * [facility], [address] [place] [address] [id number] 04/18 CMP GFR estim ate ml/min /1.73m ^2 97.7 GFR is calculate d using the CKD-EPI equation. FINAL Marlene Strodu [facility] [address] [id number] 0 04/18 CMP Gluco se mg/dL 74.0 100.0 267 High FINAL Marlene Stroud [facility] [address] [place] [address] [id number] 0 04/18 CMP Potas sium mmol/L 3.5 5.1 4.0 FINAL Marlene Stroud [facility] [address] [id number] 0 04/18 CMP Sodiu m mmol/L 137.0 145.0 136 Low FINAL Marlene Stroud [facility] [address] [id number] 0 04/18 CMP Bilir ubin, total mg/dL 0.2 1.3 1.0 FINAL [facility]lene [facility]oud [facility], [address] [facility] [address] [id number] 0 04/18 CMP Total prote in g/dL 6.3 8.2 7.3 FINAL Marlene Guzmán * [place] [facility] [place], [address] [facility] [address] [id number] 0 04/18 [facility] other lab See student services coordinator d 12/20 [facility] other lab See student services coordinator d 12/20 [facility] other lab See student services coordinator d 03/09 Free kappa / lambd a with K/L ratio , serum [place] light chain , free, serum , mg/dL mg/dL 0.33 1.94 4.35 High Test performed at [facility] on a Binding Site Optilite Analyzer that uses a turbidime tric method for analysis. Patient testing should not be performed using multiple methodolo gies due to analytica l variation seen between test methodolo gies. FINAL Marlene Guzmán * [facility] , [address] [facility] [address] [id number] 0 03/09 Free kappa / lambd a with K/L ratio , serum Lambd a light chain , free, serum , mg/dL mg/dL 0.57 2.63 3.83 High Test performed at [facility] on a Binding Site Optilite Analyzer that uses a turbidime tric method for analysis. Patient testing should not be performed using multiple methodolo gies due to analytica l variation seen between test methodolo gies. FINAL Marlene Guzmán * [facility] , [address] [facility] [address] [id number] 0 03/09 Free kappa / lambd a with K/L ratio , serum K/L light chain ratio , free, serum 0.26 1.65 1.14% FINAL Marlene Guzmán * [facility] , [address] [facility] [address] [id number] 0 03/09 CMP Album in g/dL 3.5 5.0 3.8 FINAL Marlene Guzmán * [facility] , [address] [facility] [id number] 0 03/09 CMP Alkal ine phosp hatas e U/L 36.0 125.0 106 FINAL Marleneanabel Guzmán * [facility] , [address] [facility] [id number] 0 03/09 CMP ALT/S GPT U/L 0.0 34.0 37 High FINAL Marlene Guzmán * [facility] , [address] [facility] [id number] 0 03/09 CMP AST/S GOT U/L 14.0 36.0 36 FINAL Marlene Guzmán * [facility] , [address] [facility] [id number] 03/09 CMP BUN mg/dL 7.0 17.0 18.0 High FINAL Marlene Guzmán * [facility] , [address] [facility] [id number] 0 03/09 CMP Calci um mg/dL 8.4 10.2 8.9 FINAL Marleneanabel Guzmán * [facility] , [address] [facility] [id number] 0 03/09 CMP Chlor nilson mmol/L 96.0 107.0 99 FINAL Marleneanabel Guzmán * [facility] , [address] [facility] [id number] 0 03/09 CMP CO2 mmol/L 22.0 30.0 [...] hour stability window. FINAL Marleneanabel Guzmán * [facility] , [address] [facility] [facility] [address] [facility] [id number] 0 03/09 CMP Creat inine mg/dL 0.66 1.25 0.70 FINAL Marleneanabel Guzmán * [facility] , [address] [facility] [id number] 0 03/09 CMP GFR estim ate ml/min /1.73m ^2 97.1 GFR is calculate d using the CKD-EPI equation. FINAL Marleneanabel Guzmán * [facility] , [address] [facility] [id number] 0 03/09 CMP Gluco se mg/dL 74.0 100.0 363 Criti sami High FINAL Marlene Guzmán * [facility] , [address] [facility] [id number] 0 03/09 CMP Potas sium mmol/L 3.5 5.1 3.9 FINAL Marlene Ramirez * [facility] , [address] [facility] [id number] 0 03/09 CMP Sodiu m mmol/L 137.0 145.0 134 Low FINAL Marleneanabel Guzmán * [facility] , [address] [facility] [id number] 0 03/09 CMP Bilir ubin, total mg/dL 0.2 1.3 1.1 FINAL Marleneanabel Guzmán * [facility] , [address] [facility] [address] [facility] [id number] 0 03/09 CMP Total prote in g/dL 6.3 8.2 7.3 FINAL Marlene Guzmán * [facility] , [address] [facility] [id number] 0 03/09 CBC w/ auto diff WBC K/uL 3.0 8.9 7.1 FINAL Marlene Guzmán [place] [facility] , [address] [place] [id number] 0 03/09 CBC w/ auto diff HGB g/dL 11.3 15.2 14.4 FINAL Marlene Guzmán [place] [facility] , [address] [place] [id number] 0 03/09 CBC w/ auto diff PLT K/uL 113.0 364.0 179 FINAL Marlene Guzmán [place] [facility] , [address] [place] [id number] 0 03/09 CBC w/ auto diff Tammy # (ANC) K/uL 1.6 6.6 4.7 FINAL Marlene Guzmán [facility] [place] [facility] , [address] [place] [id number] 0 03/09 CBC w/ auto diff Tammy % % 43.0 74.0 65.7 FINAL Marlene Guzmán [place] [facility] , [address] [place] [id number] 0 03/09 CBC w/ auto diff IG % % 0.0 0.5 0.6 High FINAL Marlene Guzmán [place] [facility] , [address] [place] [id number] 0 03/09 CBC w/ auto diff IG # K/uL 0.0 0.03 0.04 High FINAL Marlene Guzmán [place] [facility] , [address] [place] [id number] 0 03/09 CBC w/ auto diff LY % % 14.0 41.0 25.8 FINAL Marlene Guzmán [place] [facility] , [address] [place] [id number] 0 03/09 CBC w/ auto diff MO % % 6.0 15.0 6.2 FINAL Marlene Guzmán [place] [facility] , [address] [place] [id number] 0 03/09 CBC w/ auto diff EO % % 0.0 7.0 1.1 FINAL Marlene Guzmán [place] [facility] , [address] [place] [id number] 0 03/09 CBC w/ auto diff BA % % 0.0 2.0 0.6 FINAL Marlene Guzmán [place] [facility] , [address] [place] [id number] 0 03/09 CBC w/ auto diff LY # K/uL 0.4 3.6 1.8 FINAL Marlene Guzmán [place] [facility] , [address] [place] [id number] 0 03/09 CBC w/ auto diff MO # K/uL 0.2 1.3 0.4 FINAL Marlene Guzmán [place] [facility] , [address] [place] [id number] 0 03/09 CBC w/ auto diff EO # K/uL 0.0 0.6 0.1 FINAL Marlene Guzmán [place] [facility] , [address] [place] [id number] 0 03/09 CBC w/ auto diff BA # K/uL 0.0 0.2 0.0 FINAL Marlene Guzmán [place] [facility] , [address] [place] [id number] 0 03/09 CBC w/ auto diff NRBC % #/100W BC 0.0 0.2 0.0 FINAL Marlene Guzmán [place] [facility] , [address] [place] [id number] 0 03/09 CBC w/ auto diff RBC M/uL 3.9 5.1 5.08 FINAL Marlene Guzmán [place] [facility] , [address] [place] [id number] 0 03/09 CBC w/ auto diff HCT % 35.0 48.0 42.9 FINAL Marlene Guzmán [facility] [place] [facility] , [address] [place] [id number] 0 03/09 CBC w/ auto diff MCV fL 80.0 104.0 84.4 FINAL Marlene Guzmán [facility] - [place] [facility] , [address] [place] [id number] 0 03/09 CBC w/ auto diff MCH pg 26.0 35.0 28.3 FINAL Marlene Guzmán [facility] - [place] [facility] , [address] [place] [id number] 0 03/09 CBC w/ auto diff MCHC g/dL 30.0 35.0 33.6 FINAL Marlene Guzmán [facility] [place] [facility] , [address] [place] [id number] 0 03/09 CBC w/ auto diff MPV fL 9.5 13.4 9.6 FINAL Marlene Guzmán [place] [facility] , [address] [place] [id number] 0 03/09 CBC w/ auto diff RDW % 11.4 16.1 14.20 FINAL Marlene Guzmán [facility] , [address] [facility] [id number] 0 03/09 Total prote in g/dL 6.3 8.2 7.1 FINAL Marlene Guzmán * [facility] , [address] [facility] [address] [facility] [id number] 0 03/09 Album in, SPE g/dL 3.31 5.31 4.70 FINAL Marlene Guzmán * [facility] , [address] [facility] [address] [id number] 0 03/09 Alpha -1 globu tony g/dL 0.19 0.42 0.23 FINAL Marlene Guzmán * [facility] , [address] [facility] [facility] [address] [id number] 0 03/09 Alpha -2 globu tony g/dL 0.44 1.03 0.52 FINAL Marlene Guzmán * [facility] , [address] [facility] [id number] 0 03/09 Beta globu tony g/dL 0.52 1.05 0.80 FINAL Marlene Guzmán * [facility] , [address] [id number] 0 03/09 Gamma globu tony g/dL 0.59 1.46 0.85 FINAL Marlene Guzmán * [facility] , [address] [place] [id number] 0 03/09 Gemma Rodriguez in Lab resul t note Previou sly identif ied parapro teins detecte d in gamma region. Is now 0.3 and 0.4 gm/dL. Interpr eted and signed by Luis Guillermo MD on 025 FINAL Marlene Guzmán * [facility] , [address] [facility] [id number] 0 03/09 M-spi ke, SPE, g/dL g/dL 0.0 0.0 0.3 High FINAL Marlene Guzmán * [facility] , [address] [facility] [id number] 03/09 M-spi ke 2, SPE g/dL 0.0 0.0 0.4 High FINAL Marlene Guzmán * [facility] , [address] [facility] [id number] 0 03/09 Immun oglob ulin measu remen t IgG, quant mg/dL 610.0 1616.0 1080.49 Test performed at [facility] on a Binding Site Optilite Analyzer that uses a turbidime tric method for analysis. Patient testing should not be performed using multiple methodolo gies due to analytica l variation seen between test methodolo gies. FINAL Marlene Guzmán * [facility] , [address] [facility] [id number] 0 03/09 Immun oglob ulin measu remen t IgA, quant mg/dL 61.0 348.0 577.26 High Test performed at [facility] on a Binding Site Optilite Analyzer that uses a turbidime tric method for analysis. Patient testing should not be performed using multiple methodolo gies due to analytica l variation seen between test methodolo gies. FINAL Marlene Guzmán * [facility] , [address] [facility] [id number] 0 03/09 Immun oglob ulin measu remen t IgM, quant mg/dL 35.0 242.0 91.00 Test performed at [facility] on a Binding Site Optilite Analyzer that uses a turbidime tric method for analysis. Patient testing should not be performed using multiple methodolo gies due to analytica l variation seen between test methodolo josefina. FINAL Marlene Guzmán * [facility] , [address] [facility] [id number] 0 04/03 [facility] [...] 04/10/2025 Body Temperature 97.50 Notes Section * LIFE TRAINER Onc Consult Note (Amended) GYNECOLOGIC ONCOLOGY CONSULT Patient Name: VERO HENRY Patient : 1960 Patient Referring Physician: Malissa Hernandez MD (CASUALTY UNDERWRITER) Primary GYNOncologist: Marlene Guzmná (Hematology/Oncology) Date of Service: 08/03/2023 Reason for Consult: I was asked by Dr. Malissa Hernandez to see Vero Henry in regard to a recent diagnosis of EIN/CAH. History of Present Illness ([facility] [employer] [facility]): 63 y.o.?? * Presented with c/o [...] with myosure * Pathology:?? 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 Anxious, , female with somewhat [...] record:05/23/2019 Last record:05/23/2019; ) Assessment & Plan ([facility] [facility]): 63?? y.o. 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
--- OUTSIDE RECORDS SUMMARY | 2025-07-06 23:31 | XMS_ITS ---
Author Name Interface, [id number] lity Address [address] [facility] [address] [place] [address] [facility] Address [address] [facility] [address] [place] [address] Support Name Relationship Address Phone Greg Henry [...] Specimen Source Lab Address 11/05 [facility] [place] See play leader d 11/08 Mis other lab See play leader d 11/22 Color (ua) Yellow FINAL [facility] [place], [address] [facility] [address] [place] [id number] 0 Phone: () - 11/22 Appea ying (ua) Clear FINAL [facility] [place], [address] [facility] [address] [place] [id number] 0 Phone: () - 11/22 Gluco se (ua), qual 500.0% Abnor mal FINAL [facility] [place], [address] [facility] [address] [place] [phone] 0 Phone: () - 11/22 Bilir ubin (ua) Negativ e FINAL [facility] [place], [address] [facility] [address] [place] [phone] 0 Phone: () - 11/22 Urina lysis , aceto ne or keton e chapo s measu remen t Negativ e FINAL [facility] [place], [address] [facility] [address] [place] [phone] 0 Phone: () - 11/22 Speci fic gravi ty (ua) 1.005 1.02 1.025% Abnor mal FINAL [facility] [place], [address] [facility] [address] [place] [phone] 0 Phone: () - 11/22 Blood (ua) Negativ e FINAL [facility] [place], [address] [facility] [address] [place] [phone] 0 Phone: () - 11/22 pH (ua) 5.0 8.0 6.0% FINAL [facility] [place], [address] [facility] [address] [place] [phone] 0 Phone: () - 11/22 Prote in (ua) Negativ e FINAL [facility] [place], [address] [place] [address] [address] [place] [phone] 0 Phone: () - 11/22 Urobi linog en (ua) 0.2 1.0 0.2% FINAL [facility] [place], [address] [place] [address] [address] [place] [phone] 0 Phone: () - 11/22 Nitri te (ua) Negativ e FINAL [facility] [place], [address] [facility] [address] [place] [phone] 0 Phone: () - 11/22 Leuko cyte jerson ase (ua), qual Negativ e FINAL [facility] [place], [address] [facility] [address] [place] [phone] 0 Phone: () - 11/22 UA comme nt 1 Dipstic k negativ e- Culture ordered per provide r FINAL [facility] [place] [facility] [place], [address] [facility] [address] [facility] [phone] 0 Phone: () - 11/22 Urine cultu re panel CULTU RE, URINE , ROUTI NE SEE NOTE Abnor mal 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 FINAL Hafsa Farrell [facility] [address] [facility] [id number] 4 12/18 [facility] [place] See play leader d 04/18 Total prote in g/dL 6.3 8.2 6.9 FINAL Marlene Ramirez * [facility], [address] [id number] 0 04/18 Album in, SPE g/dL 3.31 5.31 3.97 FINAL Marlene Guzmán * [facility], [address] [id number] 0 04/18 Alpha -1 globu tony g/dL 0.19 0.42 0.26 FINAL Marlene Guzmán * [facility], [address] [id number] 0 04/18 Alpha -2 globu tony g/dL 0.44 1.03 0.63 FINAL Marlene Guzmán * [facility], [address] [id number] 04/18 Beta globu tony g/dL 0.52 1.05 0.95 FINAL Marlene Ramirez * [facility], [address] [id number] 0 04/18 Gamma globu tony g/dL 0.59 1.46 1.10 FINAL Marlene Guzmán * [facility], [address] [id number] 04/18 Gemma Rodriguez in Lab resul t note Previou sly identif ied parapro teins detecte d in gamma region. Were 0.3 and 0.4 gm/dL, now 0.3 and 0.3 gm/dL. Interpr eted and signed by Adrienne Swanson MD on 024 FINAL Marlene Guzmán * [facility], [address] [facility] [address] [id number] 0 04/18 M-spi ke, SPE, g/dL g/dL 0.0 0.0 0.3 High FINAL Marlene Guzmán * [facility], [address] [facility] [address] [id number] 0 04/18 M-spi ke 2, SPE g/dL 0.0 0.0 0.3 High FINAL Marleneanabel Guzmán * [facility], [facility] [address] [place] [address] [id number] 0 04/18 Immun oglob ulin measu remen t IgG, quant mg/dL 610.0 1616.0 946.67 Test performed at [facility] on a Binding Groupspeak Optilite Analyzer that uses a turbidime tric method for analysis. Patient testing should not be performed using multiple methodolo gies due to analytica l variation seen between test methodolo gies. FINAL Amrleneanabel Guzmán * [facility] [address] [place] [address] [id number] 0 04/18 Immun oglob ulin measu remen t IgA, quant mg/dL 61.0 348.0 493.08 High Test performed at [facility] on a Binding Groupspeak Optilite Analyzer that uses a turbidime tric method for analysis. Patient testing should not be performed using multiple methodolo gies due to analytica l variation seen between test methodolo gies. FINAL Marlene Guzmán * [facility], [address] [place] [address] [place] [address] [id number] 0 04/18 Immun oglob ulin measu remen t IgM, quant mg/dL 35.0 242.0 75.62 Test performed at [facility] on a Binding Site Optilite Analyzer that uses a turbidime tric method for analysis. Patient testing should not be performed using multiple methodolo gies due to analytica l variation seen between test methodolo gies. FINAL Marlene Forte a [facility], [facility]0 [facility] [address] [id number] 0 04/18 Free kappa / lambd a with K/L ratio , serum [place] light chain , free, serum , mg/dL mg/dL 0.33 1.94 3.62 High Test performed at [facility] on a Binding Site Optilite Analyzer that uses a turbidime tric method for analysis. Patient testing should not be performed using multiple methodolo gies due to analytica l variation seen between test methodolo gies. FINAL Marlene Rubi a [facility], [address] [facility] [address] [id number] 0 04/18 Free kappa / lambd a with K/L ratio , serum Lambd a light chain , free, serum , mg/dL mg/dL 0.57 2.63 3.13 High Test performed at [facility] on a Binding Groupspeak Optilite Analyzer that uses a turbidime tric method for analysis. Patient testing should not be performed using multiple methodolo gies due to analytica l variation seen between test methodolo gies. FINAL Marlene Rubi a [facility], [address] [id number] 0 04/18 Free kappa / lambd a with K/L ratio , serum K/L light chain ratio , free, serum 0.26 1.65 1.16% FINAL Marlene [facility], [address] [id number] 0 04/18 CBC w/ auto diff WBC K/uL 3.0 8.9 7.0 FINAL Marlene Rubi On[facility], [address] [facility] [id number] 0 Phone: () - 04/18 CBC w/ auto diff HGB g/dL 11.3 15.2 14.0 FINAL Marlene [facility] [place], [address] [place] [id number] 0 Phone: () - 04/18 CBC w/ auto diff PLT K/uL 113.0 364.0 164 FINAL Marlene [facility] [place], [address] [place] [id number] 0 Phone: () - 04/18 CBC w/ auto diff Tammy # (ANC) K/uL 1.6 6.6 4.5 FINAL Marlene [facility] - [place], [address] [place] [id number] 0 Phone: () - 04/18 CBC w/ auto diff Tammy % % 43.0 74.0 64.0 FINAL Marlene [facility] - [place], [address] [place] [id number] 0 Phone: () - 04/18 CBC w/ auto diff IG % % 0.0 0.5 0.3 FINAL Marlene [facility] - [place], [address] [place] [id number] 0 Phone: () - 04/18 CBC w/ auto diff IG # K/uL 0.0 0.03 0.02 FINAL Marlene [facility] - [place], [address] [place] [id number] 0 Phone: () - 04/18 CBC w/ auto diff LY % % 14.0 41.0 28.2 FINAL Marlene Rubi a [facility] - [place], [address] [place] [id number] 0 Phone: () - 04/18 CBC w/ auto diff MO % % 6.0 15.0 6.0 FINAL Marlene Guzmán [facility] - [place], [address] [place] [id number] 0 Phone: () - 04/18 CBC w/ auto diff EO % % 0.0 7.0 1.1 FINAL Marlene [facility] - [place], [address] [place] [id number] 0 Phone: () - 04/18 CBC w/ auto diff BA % % 0.0 2.0 0.4 FINAL Marlene [facility] - [place], [address] [place] [id number] 0 Phone: () - 04/18 CBC w/ auto diff LY # K/uL 0.4 3.6 2.0 FINAL Marlene Guzmán [facility] - [place], [address] [place] [id number] 0 Phone: () - 04/18 CBC w/ auto diff MO # K/uL 0.2 1.3 0.4 FINAL Marlene Ramirez [facility] [place], [address] [place] [id number] 0 Phone: () - 04/18 CBC w/ auto diff EO # K/uL 0.0 0.6 0.1 FINAL Marlene Ramirez [facility] - [place], [address] [place] [id number] 0 Phone: () - 04/18 CBC w/ auto diff BA # K/uL 0.0 0.2 0.0 FINAL Marlene Ramirez [facility] - [place], [address] [place] [id number] 0 Phone: () - 04/18 CBC w/ auto diff NRBC % #/100W BC 0.0 0.2 0.0 FINAL Marlene Guzmán [facility] - [place], [address] [place] [id number] 0 Phone: () - 04/18 CBC w/ auto diff RBC M/uL 3.9 5.1 4.84 FINAL Marlene Guzmán [facility] - [place], [address] [place] [id number] 0 Phone: () - 04/18 CBC w/ auto diff HCT % 35.0 48.0 40.4 FINAL Marlene Rubi a [facility] - [place], [address] [place] [id number] 0 Phone: () - 04/18 CBC w/ auto diff MCV fL 80.0 104.0 83.5 FINAL Marlene [facility] - [place], [address] [place] [id number] 0 Phone: () - 04/18 CBC w/ auto diff MCH pg 26.0 35.0 28.9 FINAL Marlene Rubi a [facility] - [place], [address] [place] [id number] 0 Phone: () - 04/18 CBC w/ auto diff MCHC g/dL 30.0 35.0 34.7 FINAL Marlene Rubi a [facility] - [place], [address] [place] [id number] 0 Phone: () - 04/18 CBC w/ auto diff MPV fL 9.5 13.4 9.7 FINAL Marlene Rubi a [facility] - [place], [address] [place] [id number] 0 Phone: () - 04/18 CBC w/ auto diff RDW % 11.4 16.1 13.80 FINAL Marlene Rubi a [facility] - [place], [address] [place] [id number] 0 Phone: () - 04/18 CMP Album in g/dL 3.5 5.0 4.0 FINAL Marlene Guzmán * [facility] [place], [address] [place] [id number] 0 04/18 CMP Alkal ine phosp hatas e U/L 36.0 125.0 105 FINAL Marlene Guzmán * [facility] [place], [address] [facility] [id number] 0 04/18 CMP ALT/S GPT U/L 0.0 34.0 35 High FINAL Marlene Guzmán * [facility], [address] [facility] [id number] 0 04/18 CMP AST/S GOT U/L 14.0 36.0 44 High FINAL Marlene Guzmán * [facility], [address] [facility] [id number] 0 04/18 CMP BUN mg/dL 7.0 17.0 21.0 High FINAL Marlene Guzmán * [facility], [address] [facility] [id number] 0 04/18 CMP Calci um mg/dL 8.4 10.2 8.8 FINAL Marlene Guzmán * [facility], [address] [facility] [id number] 0 04/18 CMP Chlor nilson mmol/L 96.0 107.0 106 FINAL Marlene Guzmán * [facility], [address] [facility] [id number] 0 04/18 CMP CO2 mmol/L 22.0 30.0 [...] hour stability window. FINAL Marlene Guzmán * [facility], [address] [facility] [id number] 0 04/18 CMP Creat inine mg/dL 0.66 1.25 0.70 FINAL Marlene Guzmán * [facility], [address] [facility] [address] [id number] 0 04/18 CMP GFR estim ate ml/min /1.73m ^2 97.7 GFR is calculate d using the CKD-EPI equation. FINAL Marlene Stroud [facility], [address] [facility] [address] [id number] 0 04/18 CMP Gluco se mg/dL 74.0 100.0 267 High FINAL Marlene Guzmán * [facility], [facility] [address] [id number] 0 04/18 CMP Potas sium mmol/L 3.5 5.1 4.0 FINAL Marlene Guzmán * [facility], [address] [facility] [address] [id number] 0 04/18 CMP Sodiu m mmol/L 137.0 145.0 136 Low FINAL Marlene Guzmán * [facility], [address] [facility] [address] [id number] 0 04/18 CMP Bilir ubin, total mg/dL 0.2 1.3 1.0 FINAL Marlene Guzmán * [facility], [address] [id number] 0 04/18 CMP Total prote in g/dL 6.3 8.2 7.3 FINAL Marlene Guzmán * [facility], [address] [facility] [address] [id number] 0 04/18 [facility] [place] See play leader d 12/20 Mis other lab See play leader d 12/20 [facility] [place] See play leader d 03/09 Free kappa / lambd a with K/L ratio , serum [place] light chain , free, serum , mg/dL mg/dL 0.33 1.94 4.35 High Test performed at [facility] on a Binding Site Optilite Analyzer that uses a turbidime tric method for analysis. Patient testing should not be performed using multiple methodolo gies due to analytica l variation seen between test methodolo gies. FINAL Marlene Guzmán * [facility] , [address] [facility] [address] [facility] [id number] 0 03/09 Free kappa / lambd a with K/L ratio , serum Lambd a light chain , free, serum , mg/dL mg/dL 0.57 2.63 3.83 High Test performed at [facility] on a Binding Site Optilite Analyzer that uses a turbidime tric method for analysis. Patient testing should not be performed using multiple methodolo gies due to analytica l variation seen between test methodolo gies. FINAL Marlene Guzmán * [facility] , [address] [facility] [address] [id number] 0 03/09 Free kappa / lambd a with K/L ratio , serum K/L light chain ratio , free, serum 0.26 1.65 1.14% FINAL Marlene Guzmán * [facility] , [address] [facility] [address] [id number] 0 03/09 CMP Album in g/dL 3.5 5.0 3.8 FINAL Marlene Guzmán * [facility] , [address] [facility] [address] [id number] 0 03/09 CMP Alkal ine phosp hatas e U/L 36.0 125.0 106 FINAL Marlene Guzmán * [facility] , [address] [facility] [address] [facility] [id number] 0 03/09 CMP ALT/S GPT U/L 0.0 34.0 37 High FINAL Marlene Guzmán * [facility] , [address] [facility] [id number] 0 03/09 CMP AST/S GOT U/L 14.0 36.0 36 FINAL Marlene Guzmán * [facility] , [address] [facility] [id number] 0 03/09 CMP BUN mg/dL 7.0 17.0 18.0 High FINAL Marlene Guzmán * [facility] , [address] [facility] [id number] 0 03/09 CMP Calci um mg/dL 8.4 10.2 8.9 FINAL Marlene Guzmán * [facility] , [address] [facility] [id number] 0 03/09 CMP Chlor nilson mmol/L 96.0 107.0 99 FINAL Marlene Guzmán * [facility] , [address] [facility] [id number] 0 03/09 CMP CO2 mmol/L 22.0 30.0 [...] hour stability window. FINAL Marleneanabel Guzmán * [facility] , [address] [facility] [id number] 0 03/09 CMP Creat inine mg/dL 0.66 1.25 0.70 FINAL Marlene Guzmán * [facility] , [address] [facility] [id number] 0 03/09 CMP GFR estim ate ml/min /1.73m ^2 97.1 GFR is calculate d using the CKD-EPI equation. FINAL Marlene Ramirez * [facility] , [address] [facility] [id number] 0 03/09 CMP Gluco se mg/dL 74.0 100.0 363 Criti sami High FINAL Marlene Ramirez * [facility] , [address] [facility] [id number] 0 03/09 CMP Potas sium mmol/L 3.5 5.1 3.9 FINAL Marlene Ramirez * [facility] , [address] [facility] [id number] 0 03/09 CMP Sodiu m mmol/L 137.0 145.0 134 Low FINAL Marlene Ramirez * [facility] , [address] [facility] [id number] 0 03/09 CMP Bilir ubin, total mg/dL 0.2 1.3 1.1 FINAL Marlene Ramirez * [facility] , [address] [facility] [id number] 0 03/09 CMP Total prote in g/dL 6.3 8.2 7.3 FINAL Marlene Guzmán * [facility] , [address] [facility] [id number] 0 03/09 CBC w/ auto diff WBC K/uL 3.0 8.9 7.1 FINAL Marlene Guzmán [place] [facility] [place] [facility] , [address] [place] [id number] 0 03/09 CBC w/ auto diff HGB g/dL 11.3 15.2 14.4 FINAL Marlene Guzmán [place] [facility] [place] [facility] , [address] [place] [id number] 0 03/09 CBC w/ auto diff PLT K/uL 113.0 364.0 179 FINAL Marlene Guzmán [place] [facility] [place] [facility] , [address] [place] [id number] 0 03/09 CBC w/ auto diff Tammy # (ANC) K/uL 1.6 6.6 4.7 FINAL Marlene Guzmán [place] [facility] [place] [facility] , [address] [place] [id number] 0 03/09 CBC w/ auto diff Tammy % % 43.0 74.0 65.7 FINAL Marlene Guzmán [place] [facility] [place] [facility] , [address] [place] [id number] 0 03/09 CBC w/ auto diff IG % % 0.0 0.5 0.6 High FINAL Marlene Guzmán [place] [facility] , [address] [place] [id number] 0 03/09 CBC w/ auto diff IG # K/uL 0.0 0.03 0.04 High FINAL Marlene Guzmán [place] [facility] [place] [facility] , [address] [place] [id number] 0 03/09 CBC w/ auto diff LY % % 14.0 41.0 25.8 FINAL Marlene Guzmán [place] [facility] [place] [facility] , [address] [place] [id number] 0 03/09 CBC w/ auto diff MO % % 6.0 15.0 6.2 FINAL Marlene Guzmán [place] [facility] [place] [facility] , [address] [place] [id number] 0 03/09 CBC w/ auto diff EO % % 0.0 7.0 1.1 FINAL Marlene Guzmán [place] [facility] [place] [facility] , [address] [place] [id number] 0 03/09 CBC w/ auto diff BA % % 0.0 2.0 0.6 FINAL Marlene Guzmán [place] [facility] [place] [facility] , [address] [place] [id number] 0 03/09 CBC w/ auto diff LY # K/uL 0.4 3.6 1.8 FINAL Marlene Guzmán [place] [facility] [place] [facility] , [address] [place] [id number] 0 03/09 CBC w/ auto diff MO # K/uL 0.2 1.3 0.4 FINAL Marlene Guzmán [place] [facility] [place] [facility] , [address] [place] [id number] 0 03/09 CBC w/ auto diff EO # K/uL 0.0 0.6 0.1 FINAL Marlene Guzmán [place] [facility] [place] [facility] , [address] [place] [id number] 0 03/09 CBC w/ auto diff BA # K/uL 0.0 0.2 0.0 FINAL Marlene Guzmán [place] [facility] [place] [facility] , [address] [place] [id number] 0 03/09 CBC w/ auto diff NRBC % #/100W BC 0.0 0.2 0.0 FINAL Mralene Guzmán [place] [facility] [place] [facility] , [address] [place] [id number] 0 03/09 CBC w/ auto diff RBC M/uL 3.9 5.1 5.08 FINAL Marlene Guzmán [place] [facility] [place] [facility] , [address] [place] [id number] 0 03/09 CBC w/ auto diff HCT % 35.0 48.0 42.9 FINAL Marlene Guzmán [place] [facility] [place] [facility] , [address] [place] [id number] 0 03/09 CBC w/ auto diff MCV fL 80.0 104.0 84.4 FINAL Marlene Guzmán [place] [facility] [place] [facility] , [address] [place] [id number] 0 03/09 CBC w/ auto diff MCH pg 26.0 35.0 28.3 FINAL Marlene Guzmán [place] [facility] [place] [facility] , [address] [place] [id number] 0 03/09 CBC w/ auto diff MCHC g/dL 30.0 35.0 33.6 FINAL Marlene Guzmán [place] [facility] , [address] [place] [id number] 0 03/09 CBC w/ auto diff MPV fL 9.5 13.4 9.6 FINAL Marlene Guzmán [place] [facility] [place] [facility] , [address] [place] [id number] 0 03/09 CBC w/ auto diff RDW % 11.4 16.1 14.20 FINAL Marlene Guzmán [place] [facility] [place] [facility] , [address] [place] [id number] 0 03/09 Total prote in g/dL 6.3 8.2 7.1 FINAL Marlene Guzmán * [place] [facility] [place] [facility] , [address] [place] [id number] 0 03/09 Album in, SPE g/dL 3.31 5.31 4.70 FINAL Marlene Guzmán * [facility] , [address] [id number] 0 03/09 Alpha -1 globu tony g/dL 0.19 0.42 0.23 FINAL Marlene Guzmán * [facility] , [address] [facility] [id number] 0 03/09 Alpha -2 globu tony g/dL 0.44 1.03 0.52 FINAL Marlene Guzmán * [facility] , [address] [id number] 0 03/09 Beta globu tony g/dL 0.52 1.05 0.80 FINAL Marlene Guzmán * [facility] , [address] [id number] 0 03/09 Gamma globu tony g/dL 0.59 1.46 0.85 FINAL Marlene Guzmán * [facility] , [address] [id number] 0 03/09 Elect Gemma layton in Lab resul t note Previou sly identif ied parapro teins detecte d in gamma region. Is now 0.3 and 0.4 gm/dL. Interpr eted and signed by Luis Guillermo MD on 025 FINAL Marlene Guzmán * [facility] , [address] [facility] [id number] 0 03/09 M-spi ke, SPE, g/dL g/dL 0.0 0.0 0.3 High FINAL Marlene Guzmán * [facility] , [address] [id number] 0 03/09 M-spi ke 2, SPE g/dL 0.0 0.0 0.4 High FINAL Marlene Guzmán * [facility] , [address] [facility] [id number] 0 03/09 Immun oglob ulin measu remen t IgG, quant mg/dL 610.0 1616.0 1080.49 Test performed at [facility] on a Binding Site Optil[employer] Analyzer that uses a turbidime tric method for analysis. Patient testing should not be performed using multiple methodolo gies due to analytica l variation seen between test methodolo gies. FINAL Marlene Ramirez * [facility] , [address] [facility] [id number] [phone] 03/09 Immun oglob ulin measu remen t IgA, quant mg/dL 61.0 348.0 577.26 High Test performed at [facility] on a Binding Site Optilite Analyzer that uses a turbidime tric method for analysis. Patient testing should not be performed using multiple methodolo gies due to analytica l variation seen between test methodolo gies. FINAL Marlene Ramirez * [facility] , [address] [facility] [id number] 0 03/09 Immun oglob ulin measu remen t IgM, quant mg/dL 35.0 242.0 91.00 Test performed at [facility] on a Binding Site Optilite Analyzer that uses a turbidime tric method for analysis. Patient testing should not be performed using multiple methodolo gies due to analytica l variation seen between test methodolo gies. 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 History of Present Illness ([employer]): 63 y.o.?? 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 Anxious, , female with somewhat [...] record:05/23/2019 Last record:05/23/2019; ) Assessment & Plan ([employer]): 63?? y.o. 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 Pathology benign. Reviewedpathology, operative findings, expected recovery.?? She is recovering well, no further restrictions.?? She can follow up with PCP/sales and service officer as needed.? 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
--- OUTSIDE RECORDS SUMMARY | 2025-07-06 23:32 | XMS_ITS ---
Author Name Interface, T1Ozsmmur lity Address [address] [facility] [address] [place] [address] [facility] Address [address] [facility] [address] [place] [address] Support Name Relationship Address Phone Greg Henry [...] Ordered By Specimen Source Lab Address 11/05 [facility] [place] See box hinge and lock attacher d 11/08 [facility] other lab See box hinge and lock attacher d 11/22 Color (ua) Yellow FINAL Hafsa Bud [facility] [place], [address] [facility] [address] [place] [phone] Phone: () - 11/22 Appea ying (ua) Clear FINAL [facility]saanabel [facility] [place], [address] [place] [address] [address] [place] [phone] Phone: () - 11/22 Gluco se (ua), qual 500.0% Abnor mal FINAL [facility]saanabel [facility] [place], [address] [place] [address] [address] [place] [phone] Phone: () - 11/22 Bilir ubin (ua) Negativ e FINAL [facility]saanabel [facility] [place], [address] [place] [address] [address] [place] [phone] 0 Phone: () - 11/22 Urina lysis , aceto ne or keton e chapo s measu remen t Negativ e FINAL [facility]saanabel [facility] [place], [address] [place] [address] [address] [place] [phone] 0 Phone: () - 11/22 Speci fic gravi ty (ua) 1.005 1.02 1.025% Abnor mal FINAL [facility]saanabel [facility] [place], [address] [place] [address] [address] [place] [phone] 0 Phone: () - 11/22 Blood (ua) Negativ e FINAL [facility]saanabel [facility] - [place], [address] [place] [address] 210 [place] [phone] 0 Phone: () - 11/22 pH (ua) 5.0 8.0 6.0% FINAL [facility]saanabel [facility] [place], [address] [place] [address] [address] [place] [phone] 0 Phone: () - 11/22 Prote in (ua) Negativ e FINAL Hafsaanabel [facility] - [place], [address] [place] [address] 210 [place] [phone] 0 Phone: () - 11/22 Urobi linog en (ua) 0.2 1.0 0.2% FINAL [facility]afsaanabel [facility] [place], [address] [place] [address] 210 [facility] [phone] 0 Phone: () - 11/22 Nitri te (ua) Negativ e FINAL Hafsa Rubi a [facility], [address] [place] [address] 210 [facility] [phone] Phone: () - 11/22 Leuko cyte jerson ase (ua), qual Negativ e FINAL Hafsa Rubi [facility], [address] [place] [address] [phone] Phone: () - 11/22 UA comme nt 1 Dipstic k negativ e- Culture ordered per provide r FINAL Hafsa Rubi [facility], [address] [place] [address] [phone] Phone: () - 11/22 Urine cultu re panel CULTU RE, URINE , ROUTI NE SEE NOTE Abnor mal 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 FINAL Hafsaanabel Farrell [facility] [address] [facility] [id number] 4 12/18 [facility] other lab See d 04/18 Total prote in g/dL 6.3 8.2 6.9 FINAL Marlene Guzmán * [facility], [facility] [address] [place] [address] [id number] 0 04/18 Album in, SPE g/dL 3.31 5.31 3.97 FINAL Marlene Guzmán * [facility], [facility] [address] [place] [address] [id number] 0 04/18 Alpha -1 globu tony g/dL 0.19 0.42 0.26 FINAL Marlene Guzmán * [facility], [address] [id number] 0 04/18 Alpha -2 globu tony g/dL 0.44 1.03 0.63 FINAL Marlene Guzmán * [facility], [address] [id number] 0 04/18 Beta globu tony g/dL 0.52 1.05 0.95 FINAL Marlene Guzmán * [facility], [address] [id number] 0 04/18 Gamma globu tony g/dL 0.59 1.46 1.10 FINAL Marlene Guzmán * [facility], [facility] [address] [place] [address] [id number] 0 04/18 Elect abiola jackson Gemma in Lab resul t note Previou sly identif ied parapro teins detecte d in gamma region. Were 0.3 and 0.4 gm/dL, now 0.3 and 0.3 gm/dL. Interpr eted and signed by Adrienne Swanson MD on 024 FINAL Marlene Guzmán * [facility], [facility] [address] [place] [address] [id number] 0 04/18 M-spi ke, SPE, g/dL g/dL 0.0 0.0 0.3 High FINAL Marlene Guzmán * [facility], [address] [facility] [address] [id number] 04/18 M-spi ke 2, SPE g/dL 0.0 0.0 0.3 High FINAL Marlene Guzmán * [facility], [facility] [address] [place] [address] [id number] 0 04/18 Immun oglob ulin measu remen t IgG, quant mg/dL 610.0 1616.0 946.67 Test performed at [facility] on a Binding Site Optilite Analyzer that uses a turbidime tric method for analysis. Patient testing should not be performed using multiple methodreal gikim due to analytica l variation seen between test methodreal rocha. FINAL Marlene Guzmán * [facility] [address] [place] [address] [id number] 0 04/18 Immun oglob ulin measu remen t IgA, quant mg/dL 61.0 348.0 493.08 High Test performed at [facility] on a Binding Site Optilite Analyzer that uses a turbidime tric method for analysis. Patient testing should not be performed using multiple methodolo gies due to analytica l variation seen between test methodolo gies. FINAL Marlene Stroud [facility] [address] [place] [address] [id number] [phone] 04/18 Immun oglob ulin measu remen t IgM, quant mg/dL 35.0 242.0 75.62 Test performed at [facility] on a Binding Site Optilite Analyzer that uses a turbidime tric method for analysis. Patient testing should not be performed using multiple methodolo gies due to analytica l variation seen between test methodolo gies. FINAL Marlene Stroud [facility] a [address] [place] [address] [id number] 0 04/18 Free kappa / lambd a with K/L ratio , serum [place] light chain , free, serum , mg/dL mg/dL 0.33 1.94 3.62 High Test performed at [facility] on a Binding Site Optilite Analyzer that uses a turbidime tric method for analysis. Patient testing should not be performed using multiple methodolo gies due to analytica l variation seen between test methodolo gies. FINAL Marlene Guzmán * Jann a [address] [place] [address] [id number] 0 04/18 Free kappa / lambd a with K/L ratio , serum Lambd a light chain , free, serum , mg/dL mg/dL 0.57 2.63 3.13 High Test performed at [facility] on a Binding Site Optilite Analyzer that uses a turbidime tric method for analysis. Patient testing should not be performed using multiple methodolo gies due to analytica l variation seen between test methodolo gies. FINAL Marlene Struod [facility] [address] [place] [address] [id number] 0 04/18 Free kappa / lambd a with K/L ratio , serum K/L light chain ratio , free, serum 0.26 1.65 1.16% FINAL Marlene Guzmán * [facility] [place], [address] [facility] [place] [id number] 0 04/18 CBC w/ auto diff WBC K/uL 3.0 8.9 7.0 FINAL Marlene [facility] - [place], [address] [place] [id number] 0 Phone: () - 04/18 CBC w/ auto diff HGB g/dL 11.3 15.2 14.0 FINAL Marlene Rubi [facility] - [place], [address] [place] [id number] 0 Phone: () - 04/18 CBC w/ auto diff PLT K/uL 113.0 364.0 164 FINAL Marlene Rubi a [facility] - [place], [address] [place] [phone] 0 Phone: () - 04/18 CBC w/ auto diff Tammy # (ANC) K/uL 1.6 6.6 4.5 FINAL Marlene [facility] - [place], [address] [place] [id number] 0 Phone: () - 04/18 CBC w/ auto diff Tammy % % 43.0 74.0 64.0 FINAL Marlene [facility] - [place], [address] [place] [id number] 0 Phone: () - 04/18 CBC w/ auto diff IG % % 0.0 0.5 0.3 FINAL Marlene Rubi a [facility] - [place], [address] [place] [id number] 0 Phone: () - 04/18 CBC w/ auto diff IG # K/uL 0.0 0.03 0.02 FINAL Marlene Rubi [facility] - [place], [address] [place] [id number] 0 Phone: () - 04/18 CBC w/ auto diff LY % % 14.0 41.0 28.2 FINAL Marlene [facility] - [place], [address] [place] [id number] 0 Phone: () - 04/18 CBC w/ auto diff MO % % 6.0 15.0 6.0 FINAL Marlene [facility] - [place], [address] [place] [id number] 0 Phone: () - 04/18 CBC w/ auto diff EO % % 0.0 7.0 1.1 FINAL Marlene [facility] - [place], [address] [place] [id number] 0 Phone: () - 04/18 CBC w/ auto diff BA % % 0.0 2.0 0.4 FINAL Marlene [facility] - [place], [address] [place] [id number] 0 Phone: () - 04/18 CBC w/ auto diff LY # K/uL 0.4 3.6 2.0 FINAL Marlene [facility] - [place], [address] [place] [id number] 0 Phone: () - 04/18 CBC w/ auto diff MO # K/uL 0.2 1.3 0.4 FINAL Marlene [facility] - [place], [address] [place] [id number] 0 Phone: () - 04/18 CBC w/ auto diff EO # K/uL 0.0 0.6 0.1 FINAL Marlene [facility] - [place], [address] [place] [id number] 0 Phone: () - 04/18 CBC w/ auto diff BA # K/uL 0.0 0.2 0.0 FINAL Marlene [facility] - [place], [address] [place] [id number] 0 Phone: () - 04/18 CBC w/ auto diff NRBC % #/100W BC 0.0 0.2 0.0 FINAL Marlene [facility] [place], [address] [place] [id number] 0 Phone: () - 04/18 CBC w/ auto diff RBC M/uL 3.9 5.1 4.84 FINAL Marlene [facility] [place], [address] [place] [id number] 0 Phone: () - 04/18 CBC w/ auto diff HCT % 35.0 48.0 40.4 FINAL Marlene Ramirez [facility] [place], [address] [place] [id number] 0 Phone: () - 04/18 CBC w/ auto diff MCV fL 80.0 104.0 83.5 FINAL Marlene Ramirez [facility] - [place], [address] [place] [id number] 0 Phone: () - 04/18 CBC w/ auto diff MCH pg 26.0 35.0 28.9 FINAL Marlene Guzmán [facility] [place], [address] [place] [id number] 0 Phone: () - 04/18 CBC w/ auto diff MCHC g/dL 30.0 35.0 34.7 FINAL Marlene Guzmán [facility] - [place], [address] [place] [id number] 0 Phone: () - 04/18 CBC w/ auto diff MPV fL 9.5 13.4 9.7 FINAL Marlene Guzmán [facility] - [place], [address] [place] [id number] 0 Phone: () - 04/18 CBC w/ auto diff RDW % 11.4 16.1 13.80 FINAL Marlene Guzmán [facility] [place], [address] [facility] [place] [phone] 0 Phone: ( 04/18 CMP Album in g/dL 3.5 5.0 4.0 FINAL Marlene Guzmán * [facility] [place], [address] [facility] [id number] 0 04/18 CMP Alkal ine phosp hatas e U/L 36.0 125.0 105 FINAL Marlene Guzmán * [facility] [place], [address] [facility] [id number] 0 04/18 CMP ALT/S GPT U/L 0.0 34.0 35 High FINAL Marlene Guzmán * [facility] [place], [address] [facility] [id number] 0 04/18 CMP AST/S GOT U/L 14.0 36.0 44 High FINAL Marlene Guzmán * [facility] [place], [address] [facility] [id number] 0 04/18 CMP BUN mg/dL 7.0 17.0 21.0 High FINAL Marlene Guzmán * [facility] [place], [address] [facility] [id number] 0 04/18 CMP Calci um mg/dL 8.4 10.2 8.8 FINAL Marlene Guzmán * [facility] [place], [address] [facility] [id number] 0 04/18 CMP Chlor nilson mmol/L 96.0 107.0 106 FINAL Marlene Guzmán * [facility] [place], [address] [facility] [id number] 0 04/18 CMP CO2 mmol/L 22.0 30.0 [...] 96 hour stability window. FINAL [facility] [address] [id number] 0 04/18 CMP Creat inine mg/dL 0.66 1.25 0.70 FINAL Marlene Guzmán * [facility], [address] [place] [address] [id number] 0 04/18 CMP GFR estim ate ml/min /1.73m ^2 97.7 GFR is calculate d using the CKD-EPI equation. FINAL Marlene Stroud [facility] [address] [id number] 0 04/18 CMP Gluco se mg/dL 74.0 100.0 267 High FINAL Marlene [facility]oud [facility] [address] [place] [address] [id number] 0 04/18 CMP Potas sium mmol/L 3.5 5.1 4.0 FINAL Marlene Stroud [facility] [address] [id number] 0 04/18 CMP Sodiu m mmol/L 137.0 145.0 136 Low FINAL Marlene [facility]oud [facility] [address] [id number] 0 04/18 CMP Bilir ubin, total mg/dL 0.2 1.3 1.0 FINAL [facility]oud [facility], [address] [facility] [address] [id number] 0 04/18 CMP Total prote in g/dL 6.3 8.2 7.3 FINAL Marlene Guzmán * [facility] [place], [address] [facility] [address] [id number] 0 04/18 [facility] [place] See box hinge and lock attacher d 12/20 [facility] other lab See box hinge and lock attacher d 12/20 [facility] other lab See box hinge and lock attacher d 03/09 Free kappa / lambd a with K/L ratio , serum [place] light chain , free, serum , mg/dL mg/dL 0.33 1.94 4.35 High Test performed at [facility] on a Binding Site Optilite Analyzer that uses a turbidime tric method for analysis. Patient testing should not be performed using multiple methodolo gies due to analytica l variation seen between test methodolo gies. FINAL Marlene Guzmán * [facility] , [address] [facility] [address] [id number] 0 03/09 Free kappa / lambd a with K/L ratio , serum Lambd a light chain , free, serum , mg/dL mg/dL 0.57 2.63 3.83 High Test performed at [facility] on a Binding Site Optilite Analyzer that uses a turbidime tric method for analysis. Patient testing should not be performed using multiple methodolo gies due to analytica l variation seen between test methodolo gies. FINAL Marlene Guzmán * [facility] , [address] [facility] [address] [id number] 0 03/09 Free kappa / lambd a with K/L ratio , serum K/L light chain ratio , free, serum 0.26 1.65 1.14% FINAL Marlene Guzmán * [facility] , [address] [facility] [address] [id number] 0 03/09 CMP Album in g/dL 3.5 5.0 3.8 FINAL Marlene Guzmán * [facility] , [address] [facility] [id number] 0 03/09 CMP Alkal ine phosp hatas e U/L 36.0 125.0 106 FINAL Marleneanabel Guzmán * [facility] , [address] [facility] [id number] 0 03/09 CMP ALT/S GPT U/L 0.0 34.0 37 High FINAL Marlene Guzmán * [facility] , [address] [facility] [id number] 0 03/09 CMP AST/S GOT U/L 14.0 36.0 36 FINAL Marlene Guzmán * [facility] , [address] [facility] [id number] 0 03/09 CMP BUN mg/dL 7.0 17.0 18.0 High FINAL Marlene Guzmán * [facility] , [address] [facility] [id number] 0 03/09 CMP Calci um mg/dL 8.4 10.2 8.9 FINAL Marleneanabel Guzmán * [facility] , [address] [facility] [id number] 0 03/09 CMP Chlor nilson mmol/L 96.0 107.0 99 FINAL Marleneanabel Guzmán * [facility] , [address] [facility] [id number] 0 03/09 CMP CO2 mmol/L 22.0 30.0 [...] hour stability window. FINAL Marleneanabel Guzmán * [facility] , [address] [facility] [address] [facility] [id number] 0 03/09 CMP Creat inine mg/dL 0.66 1.25 0.70 FINAL Marleneanabel Guzmán * [facility] , [address] [facility] [address] [facility] [id number] 0 03/09 CMP GFR estim ate ml/min /1.73m ^2 97.1 GFR is calculate d using the CKD-EPI equation. FINAL Marleneanabel Guzmán * [facility] , [address] [facility] [address] [facility] [address] [facility] [id number] 0 03/09 CMP Gluco se mg/dL 74.0 100.0 363 Criti sami High FINAL Marlene Guzmán * [facility] , [address] [facility] [address] [facility] [id number] 0 03/09 CMP Potas sium mmol/L 3.5 5.1 3.9 FINAL Marlene Ramirez * [facility] , [address] [facility] [address] [facility] [id number] 0 03/09 CMP Sodiu m mmol/L 137.0 145.0 134 Low FINAL Marleneanabel Guzmán * [facility] , [address] [facility] [address] [facility] [id number] 0 03/09 CMP Bilir ubin, total mg/dL 0.2 1.3 1.1 FINAL Marleneanabel Guzmán * [facility] , [address] [facility] [address] [facility] [id number] 0 03/09 CMP Total prote in g/dL 6.3 8.2 7.3 FINAL Marlene Guzmán * [facility] , [address] [facility] [address] [facility] [id number] 0 03/09 CBC w/ auto diff WBC K/uL 3.0 8.9 7.1 FINAL Marlene Guzmán [place] [facility] [place] [facility] , [address] [place] [id number] 0 03/09 CBC w/ auto diff HGB g/dL 11.3 15.2 14.4 FINAL Marlene Guzmán [place] [facility] [place] [facility] , [address] [place] [id number] 0 03/09 CBC w/ auto diff PLT K/uL 113.0 364.0 179 FINAL Marlene Guzmán [place] [facility] [place] [facility] , [address] [place] [id number] 0 03/09 CBC w/ auto diff Tammy # (ANC) K/uL 1.6 6.6 4.7 FINAL Marlene Guzmán [facility] [place] [facility] , [address] [place] [id number] 0 03/09 CBC w/ auto diff Tammy % % 43.0 74.0 65.7 FINAL Marlene Guzmán [place] [facility] [place] [facility] , [address] [place] [id number] 0 03/09 CBC w/ auto diff IG % % 0.0 0.5 0.6 High FINAL Marlene Guzmán [place] [facility] [place] [facility] , [address] [place] [id number] 0 03/09 CBC w/ auto diff IG # K/uL 0.0 0.03 0.04 High FINAL Marlene Guzmán [place] [facility] [place] [facility] , [address] [place] [id number] 0 03/09 CBC w/ auto diff LY % % 14.0 41.0 25.8 FINAL Marlene Guzmán [place] [facility] [place] [facility] , [address] [place] [id number] 0 03/09 CBC w/ auto diff MO % % 6.0 15.0 6.2 FINAL Marlene Guzmán [place] [facility] [place] [facility] , [address] [place] [id number] 0 03/09 CBC w/ auto diff EO % % 0.0 7.0 1.1 FINAL Marlene Guzmán [place] [facility] [place] [facility] , [address] [place] [id number] 0 03/09 CBC w/ auto diff BA % % 0.0 2.0 0.6 FINAL Marlene Guzmán [place] [facility] [place] [facility] , [address] [place] [id number] 0 03/09 CBC w/ auto diff LY # K/uL 0.4 3.6 1.8 FINAL Marlene Guzmán [place] [facility] [place] [facility] , [address] [place] [id number] 0 03/09 CBC w/ auto diff MO # K/uL 0.2 1.3 0.4 FINAL Marlene Guzmán [place] [facility] [place] [facility] , [address] [place] [id number] 0 03/09 CBC w/ auto diff EO # K/uL 0.0 0.6 0.1 FINAL Marlene Guzmán [place] [facility] [place] [facility] , [address] [place] [id number] 0 03/09 CBC w/ auto diff BA # K/uL 0.0 0.2 0.0 FINAL Marlene Guzmán [place] [facility] [place] [facility] , [address] [place] [id number] 0 03/09 CBC w/ auto diff NRBC % #/100W BC 0.0 0.2 0.0 FINAL Marlene Guzmán [place] [facility] [place] [facility] , [address] [place] [id number] 0 03/09 CBC w/ auto diff RBC M/uL 3.9 5.1 5.08 FINAL Marlene Guzmán [place] [facility] [place] [facility] , [address] [place] [id number] 0 03/09 CBC w/ auto diff HCT % 35.0 48.0 42.9 FINAL Marlene Guzmán [facility] [place] [facility] , [address] [place] [id number] 0 03/09 CBC w/ auto diff MCV fL 80.0 104.0 84.4 FINAL Marlene Guzmán [facility] [place] [facility] , [address] [place] [id number] 0 03/09 CBC w/ auto diff MCH pg 26.0 35.0 28.3 FINAL Marlene Guzmán [facility] [place] [facility] , [address] [place] [id number] 0 03/09 CBC w/ auto diff MCHC g/dL 30.0 35.0 33.6 FINAL Marlene Guzmán [facility] [place] [facility] , [address] [place] [id number] 0 03/09 CBC w/ auto diff MPV fL 9.5 13.4 9.6 FINAL Marlene Guzmán [place] [facility] [place] [facility] , [address] [place] [id number] 0 03/09 CBC w/ auto diff RDW % 11.4 16.1 14.20 FINAL Marlene Guzmán [facility] , [address] [facility] [id number] 0 03/09 Total prote in g/dL 6.3 8.2 7.1 FINAL Marlene Guzmán * [facility] , [address] [facility] [address] [facility] [id number] 0 03/09 Album in, SPE g/dL 3.31 5.31 4.70 FINAL Marlene Guzmán * [facility] , [address] [facility] [address] [id number] 0 03/09 Alpha -1 globu tony g/dL 0.19 0.42 0.23 FINAL Marlene Guzmán * [facility] , [address] [facility] [address] [id number] 0 03/09 Alpha -2 globu tony g/dL 0.44 1.03 0.52 FINAL Marlene Guzmán * [facility] , [address] [facility] [address] [id number] 0 03/09 Beta globu tony g/dL 0.52 1.05 0.80 FINAL Marlene Guzmán * [facility] , [address] [facility] [address] [id number] 0 03/09 Gamma globu tony g/dL 0.59 1.46 0.85 FINAL Marlene Guzmán * [facility] , [address] [facility] [address] [id number] 0 03/09 Gemma Rodriguez in Lab resul t note Previou sly identif ied parapro teins detecte d in gamma region. Is now 0.3 and 0.4 gm/dL. Interpr eted and signed by Luis Guillermo MD on 025 FINAL Marlene Guzmán * [facility] , [address] [facility] [id number] 0 03/09 M-spi ke, SPE, g/dL g/dL 0.0 0.0 0.3 High FINAL Marlene Guzmán * [facility] , [address] [facility] [id number] 0 03/09 M-spi ke 2, SPE g/dL 0.0 0.0 0.4 High FINAL Marlene Guzmán * [facility] , [address] [facility] [id number] 0 03/09 Immun oglob ulin measu remen t IgG, quant mg/dL 610.0 1616.0 1080.49 Test performed at [facility] on a Binding Site Optilite Analyzer that uses a turbidime tric method for analysis. Patient testing should not be performed using multiple methodolo gies due to analytica l variation seen between test methodolo gies. FINAL Marlene Guzmán * [facility] , [address] [facility] [id number] 0 03/09 Immun oglob ulin measu remen t IgA, quant mg/dL 61.0 348.0 577.26 High Test performed at [facility] on a Binding Site Optilite Analyzer that uses a turbidime tric method for analysis. Patient testing should not be performed using multiple methodolo gies due to analytica l variation seen between test methodolo gies. FINAL Marlene Guzmán * [facility] , [address] [facility] [id number] 0 03/09 Immun oglob ulin measu remen t IgM, quant mg/dL 35.0 242.0 91.00 Test performed at [facility] on a Binding Site Optilite Analyzer that uses a turbidime tric method for analysis. Patient testing should not be performed using multiple methodolo gies due to analytica l variation seen between test methodolo josefina. FINAL Marlene Guzmán * [facility] , [address] [facility] [id number] 0 04/03 [facility] [place] other lab See attache malave Medications Date [...] 04/10/2025 Body Temperature 97.50 Notes Section * [facility] On[facility] Consult Note (Amended) GYNECOLOGIC ONCOLOGY CONSULT Patient Name: VERO HENRY Patient : 1960 Patient Referring Physician: Malissa Hernandez MD (FACILITY WORKER) Primary GYNOncologist: Marlene Guzmán (Hematology/Oncology) Date of Service: 08/03/2023 Reason for Consult: I was asked by Dr. Malissa Hernandez to see Vero Henry in regard to a recent diagnosis of EIN/CAH. History of Present Illness ([employer]): 63 y.o.?? * Presented with [...] with myosure * Pathology:?? EIN Genetic Testing ([employer] [facility]): Review of Systems: See intake ROS [...] Hysteroscopy with myosure, D & C 06/28/23 script reader History: - 3 , 1 SAb Allergies: [...] Fluocinonide Topical Cream 0.05 % PRN * [place] (Hydrocodone-Acetaminophen Oral 5 mg-325 mg) 5-325 mg [...] BSA: 2.36, BMI: 47.71 kg/m2 Physical Exam ([employer] [facility]): General:?? Anxious, , female with [...] record:05/23/2019 Last record:05/23/2019; ) Assessment & Plan ([employer]): 63?? y.o. 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
--- OUTSIDE RECORDS SUMMARY | 2025-07-06 23:32 | XMS_ITS ---
Author Name Interface, [id number] lity Address [address] [facility] [address] [place] [address] [facility] Oncology Address [address] [facility] [address] [place] [address] Support Name Relationship Address Phone Greg Henry [...] Ordered By Specimen Source Lab Address 11/05 [facility] other lab See mammography technologist d 11/08 [facility] other lab See mammography technologist d 11/22 Color (ua) Yellow FINAL Hafsa Bud [place] [facility] [place], [address] [facility] [address] [place] [phone] 0 Phone: () - 11/22 Appea ying (ua) Clear FINAL Hafsaanabel Rubi [facility] - [place], [address] [place] [address] [address] [place] [phone] Phone: () - 11/22 Gluco se (ua), qual 500.0% Abnor mal FINAL Hafsaanabel Rubi [facility] - [place], [address] [place] [address] [address] [place] [phone] 0 Phone: () - 11/22 Bilir ubin (ua) Negativ e FINAL Hafsaanabel Rubi a [facility] - [place], [address] [place] [address] [address] [place] [phone] 0 Phone: () - 11/22 Urina lysis , aceto ne or keton e chapo s measu remen t Negativ e FINAL Hafsaanabel Rubi [facility] - [place], [address] [place] [address] [address] [place] [phone] 0 Phone: () - 11/22 Speci fic gravi ty (ua) 1.005 1.02 1.025% Abnor mal FINAL Hafsaanabel Rubi [facility] - [place], [address] [place] [address] [address] [place] [phone] 0 Phone: () - 11/22 Blood (ua) Negativ e FINAL Hafsaanabel Rubi a [facility] - [place], [address] [place] [address] [address] [place] [phone] 0 Phone: () - 11/22 pH (ua) 5.0 8.0 6.0% FINAL Hafsaanabel [place] [facility] - [place], [address] [place] [address] [address] [place] [phone] 0 Phone: () - 11/22 Prote in (ua) Negativ e FINAL Hafsaanabel Rubi a [facility] - [place], [address] [place] [address] [address] [place] [phone] 0 Phone: () - 11/22 Urobi linog en (ua) 0.2 1.0 0.2% FINAL Hafsaanabel [facility] [facility] - [place], [address] [place] [address] 210 [facility] [phone] 0 Phone: () - 11/22 Nitri te (ua) Negativ e FINAL Hafsa Rubi a [facility], [address] [place] [address] 210 [facility] [phone] Phone: () - 11/22 Leuko cyte jerson ase (ua), qual Negativ e FINAL Hafsa Rubi [facility], [address] [place] [address] [phone] Phone: () - 11/22 UA comme nt 1 Dipstic k negativ e- Culture ordered per provide r FINAL Hafsa Rubi [facility], [address] [place] [address] [phone] Phone: () - 11/22 Urine cultu re panel CULTU RE, URINE , ROUTI NE SEE NOTE Abnor mal CULTURE, 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 FINAL Hafsaanabel Farrell [facility], [facility] [address] [facility] [id number] 4 12/18 [facility] other lab See d 04/18 Total prote in g/dL 6.3 8.2 6.9 FINAL Marlene Guzmán * [facility], [facility] [address] [place] [address] [id number] 04/18 Album in, SPE g/dL 3.31 5.31 3.97 FINAL Marlene Guzmán * [facility] [address] [place] [address] [id number] 0 04/18 Alpha -1 globu tony g/dL 0.19 0.42 0.26 FINAL Marlene Guzmán * [facility], [address] [id number] 0 04/18 Alpha -2 globu tony g/dL 0.44 1.03 0.63 FINAL Marlene Guzmán * [facility], [address] [id number] 0 04/18 Beta globu tony g/dL 0.52 1.05 0.95 FINAL Marlene Guzmán * [facility], [address] [id number] 0 04/18 Gamma globu tony g/dL 0.59 1.46 1.10 FINAL Marlene Guzmán * [facility], [facility] [address] [place] [address] [id number] 0 04/18 Elect abiola jackson Gemma in Lab resul t note Previou sly identif ied parapro teins detecte d in gamma region. Were 0.3 and 0.4 gm/dL, now 0.3 and 0.3 gm/dL. Interpr eted and signed by Adrienne Swanson MD on 024 FINAL Marlene Guzmán * [facility], [facility]0 [facility] [address] [place] [address] [id number] 0 04/18 M-spi ke, SPE, g/dL g/dL 0.0 0.0 0.3 High FINAL Marlene Guzmán * [facility], [address] [facility] [address] [id number] 04/18 M-spi ke 2, SPE g/dL 0.0 0.0 0.3 High FINAL Marlene Guzmán * [facility], [facility] [address] [place] [address] [id number] 0 04/18 Immun oglob ulin measu remen t IgG, quant mg/dL 610.0 1616.0 946.67 Test performed at [facility] on a Binding Site Optilite Analyzer that uses a turbidime tric method for analysis. Patient testing should not be performed using multiple methodreal gikim due to analytica l variation seen between test methodreal rocha. FINAL Marlene Guzmán * [facility] [address] [place] [address] [id number] 04/18 Immun oglob ulin measu remen t IgA, quant mg/dL 61.0 348.0 493.08 High Test performed at [facility] on a Binding Site Optilite Analyzer that uses a turbidime tric method for analysis. Patient testing should not be performed using multiple methodolo gies due to analytica l variation seen between test methodolo gies. FINAL Marlene Stroud [facility] [address] [place] [address] [id number] 0 04/18 Immun oglob ulin measu remen t IgM, quant mg/dL 35.0 242.0 75.62 Test performed at [facility] on a Binding Site Optilite Analyzer that uses a turbidime tric method for analysis. Patient testing should not be performed using multiple methodolo gies due to analytica l variation seen between test methodolo gies. FINAL Marlene Stroud [facility] a [address] [place] [address] [id number] 0 04/18 Free kappa / lambd a with K/L ratio , serum [place] light chain , free, serum , mg/dL mg/dL 0.33 1.94 3.62 High Test performed at [facility] on a Binding Site Optilite Analyzer that uses a turbidime tric method for analysis. Patient testing should not be performed using multiple methodolo gies due to analytica l variation seen between test methodolo gies. FINAL Marlene Guzmán * Jann a [address] [place] [address] [id number] 0 04/18 Free kappa / lambd a with K/L ratio , serum Lambd a light chain , free, serum , mg/dL mg/dL 0.57 2.63 3.13 High Test performed at [facility] on a Binding Site Optilite Analyzer that uses a turbidime tric method for analysis. Patient testing should not be performed using multiple methodolo gies due to analytica l variation seen between test methodolo gies. FINAL Marlene Stroud [facility] [address] [place] [address] [id number] 0 04/18 Free kappa / lambd a with K/L ratio , serum K/L light chain ratio , free, serum 0.26 1.65 1.16% FINAL Marlene Guzmán * [place] [facility] [place], [address] [facility] [place] [id number] 0 04/18 CBC w/ auto diff WBC K/uL 3.0 8.9 7.0 FINAL Marlene [place] [facility] - [place], [address] [place] [id number] 0 Phone: () - 04/18 CBC w/ auto diff HGB g/dL 11.3 15.2 14.0 FINAL Marlene Rubi a [facility] - [place], [address] [place] [id number] 0 Phone: () - 04/18 CBC w/ auto diff PLT K/uL 113.0 364.0 164 FINAL Marlene Rubi a [facility] - [place], [address] [place] [id number] 0 Phone: () - 04/18 CBC w/ auto diff Tammy # (ANC) K/uL 1.6 6.6 4.5 FINAL Marlene pagan [facility] - [place], [address] [place] [id number] 0 Phone: () - 04/18 CBC w/ auto diff Tammy % % 43.0 74.0 64.0 FINAL Marlene pagan [facility] - [place], [address] [place] [id number] 0 Phone: () - 04/18 CBC w/ auto diff IG % % 0.0 0.5 0.3 FINAL Marlene Rubi a [facility] - [place], [address] [place] [id number] 0 Phone: () - 04/18 CBC w/ auto diff IG # K/uL 0.0 0.03 0.02 FINAL Marlene Rubi a [facility] - [place], [address] [place] [id number] 0 Phone: () - 04/18 CBC w/ auto diff LY % % 14.0 41.0 28.2 FINAL Marlene pagan [facility] - [place], [address] [place] [id number] 0 Phone: () - 04/18 CBC w/ auto diff MO % % 6.0 15.0 6.0 FINAL Marlene pagan [facility] - [place], [address] [place] [id number] 0 Phone: () - 04/18 CBC w/ auto diff EO % % 0.0 7.0 1.1 FINAL Marlene pagan [facility] - [place], [address] [place] [id number] 0 Phone: () - 04/18 CBC w/ auto diff BA % % 0.0 2.0 0.4 FINAL Marlene pagan [facility] - [place], [address] [place] [id number] 0 Phone: () - 04/18 CBC w/ auto diff LY # K/uL 0.4 3.6 2.0 FINAL Marlene pagan [facility] - [place], [address] [place] [id number] 0 Phone: () - 04/18 CBC w/ auto diff MO # K/uL 0.2 1.3 0.4 FINAL Marlene pagan [facility] - [place], [address] [place] [id number] 0 Phone: () - 04/18 CBC w/ auto diff EO # K/uL 0.0 0.6 0.1 FINAL Marlene pagan [facility] - [place], [address] [place] [id number] 0 Phone: () - 04/18 CBC w/ auto diff BA # K/uL 0.0 0.2 0.0 FINAL Marlene pagan [facility] - [place], [address] [place] [id number] 0 Phone: () - 04/18 CBC w/ auto diff NRBC % #/100W BC 0.0 0.2 0.0 FINAL Marlene [place] [facility] - [place], [address] [place] [id number] 0 Phone: () - 04/18 CBC w/ auto diff RBC M/uL 3.9 5.1 4.84 FINAL Marlene [place] [facility] - [place], [address] [place] [id number] 0 Phone: () - 04/18 CBC w/ auto diff HCT % 35.0 48.0 40.4 FINAL Marlene Ramirez [place] [facility] - [place], [address] [place] [id number] 0 Phone: () - 04/18 CBC w/ auto diff MCV fL 80.0 104.0 83.5 FINAL Marlene Ramirez [facility] - [place], [address] [place] [id number] 0 Phone: () - 04/18 CBC w/ auto diff MCH pg 26.0 35.0 28.9 FINAL Marlene Guzmán [facility] - [place], [address] [place] [id number] 0 Phone: () - 04/18 CBC w/ auto diff MCHC g/dL 30.0 35.0 34.7 FINAL Marlene Guzmán [facility] - [place], [address] [place] [id number] 0 Phone: () - 04/18 CBC w/ auto diff MPV fL 9.5 13.4 9.7 FINAL Marlene Guzmán [facility] - [place], [address] [place] [id number] 0 Phone: () - 04/18 CBC w/ auto diff RDW % 11.4 16.1 13.80 FINAL Marlene Guzmán [place] [facility] [place], [address] [facility] [place] [id number] 0 Phone: ( 04/18 CMP Album in g/dL 3.5 5.0 4.0 FINAL Marlene Guzmán * [place] [facility] [place], [address] [facility] [id number] 0 04/18 CMP Alkal ine phosp hatas e U/L 36.0 125.0 105 FINAL Marlene Guzmán * [place] [facility], [address] [facility] [id number] 0 04/18 CMP ALT/S GPT U/L 0.0 34.0 35 High FINAL Marlene Guzmán * [place] [facility], [address] [facility] [id number] 0 04/18 CMP AST/S GOT U/L 14.0 36.0 44 High FINAL Marlene Guzmán * [place] [facility], [address] [facility] [id number] 0 04/18 CMP BUN mg/dL 7.0 17.0 21.0 High FINAL Marlene Guzmán * [place] [facility], [address] [facility] [id number] 0 04/18 CMP Calci um mg/dL 8.4 10.2 8.8 FINAL Marlene Guzmán * [place] [facility], [address] [facility] [id number] 0 04/18 CMP Chlor nilson mmol/L 96.0 107.0 106 FINAL Marlene Guzmán * [place] [facility], [address] [facility] [id number] 0 04/18 CMP CO2 mmol/L 22.0 30.0 [...] 96 hour stability window. FINAL [facility]lene Stroud [facility] [address] [id number] 04/18 CMP Creat inine mg/dL 0.66 1.25 0.70 FINAL Marlene Guzmán * [facility], [address] [place] [address] [id number] 0 04/18 CMP GFR estim ate ml/min /1.73m ^2 97.7 GFR is calculate d using the CKD-EPI equation. FINAL Marlene Stroud [facility] [address] [id number] 0 04/18 CMP Gluco se mg/dL 74.0 100.0 267 High FINAL Marlene Stroud [facility] [address] [place] [address] [id number] 04/18 CMP Potas sium mmol/L 3.5 5.1 4.0 FINAL Marlene Stroud [facility] [address] [id number] 0 04/18 CMP Sodiu m mmol/L 137.0 145.0 136 Low FINAL Marlene Stroud [facility] [address] [id number] 0 04/18 CMP Bilir ubin, total mg/dL 0.2 1.3 1.0 FINAL Marlene Stroud [facility] [place], [address] [facility] [address] [id number] 0 04/18 CMP Total prote in g/dL 6.3 8.2 7.3 FINAL Marlene Guzmán * [place] [facility] [place], [address] [facility] [address] [id number] 0 04/18 [facility] other lab See mammography technologist d 12/20 [facility] other lab See mammography technologist d 12/20 [facility] other lab See mammography technologist d 03/09 Free kappa / lambd a with K/L ratio , serum [place] light chain , free, serum , mg/dL mg/dL 0.33 1.94 4.35 High Test performed at [facility] on a Binding Site Optilite Analyzer that uses a turbidime tric method for analysis. Patient testing should not be performed using multiple methodolo gies due to analytica l variation seen between test methodolo gies. FINAL Marlene Guzmán * [facility] , [address] [facility] [address] [id number] 0 03/09 Free kappa / lambd a with K/L ratio , serum Lambd a light chain , free, serum , mg/dL mg/dL 0.57 2.63 3.83 High Test performed at [facility] on a Binding Site Optilite Analyzer that uses a turbidime tric method for analysis. Patient testing should not be performed using multiple methodolo gies due to analytica l variation seen between test methodolo gies. FINAL Marlene Guzmán * [facility] , [address] [facility] [address] [id number] 0 03/09 Free kappa / lambd a with K/L ratio , serum K/L light chain ratio , free, serum 0.26 1.65 1.14% FINAL Marlene Guzmán * [facility] , [address] [facility] [address] [id number] 0 03/09 CMP Album in g/dL 3.5 5.0 3.8 FINAL Marlene Guzmán * [facility] , [address] [facility] [id number] 0 03/09 CMP Alkal ine phosp hatas e U/L 36.0 125.0 106 FINAL Marleneanabel Guzmán * [facility] , [address] [facility] [id number] 0 03/09 CMP ALT/S GPT U/L 0.0 34.0 37 High FINAL Marlene Guzmán * [facility] , [address] [facility] [id number] 0 03/09 CMP AST/S GOT U/L 14.0 36.0 36 FINAL Marlene Guzmán * [facility] , [address] [facility] [id number] 0 03/09 CMP BUN mg/dL 7.0 17.0 18.0 High FINAL Marlene Guzmán * [facility] , [address] [facility] [id number] 0 03/09 CMP Calci um mg/dL 8.4 10.2 8.9 FINAL Marleneanabel Guzmán * [facility] , [address] [facility] [id number] 0 03/09 CMP Chlor nilson mmol/L 96.0 107.0 99 FINAL Marleneanabel Guzmán * [facility] , [address] [facility] [id number] 0 03/09 CMP CO2 mmol/L 22.0 30.0 [...] stability window. FINAL Marleneanabel Guzmán * [facility] , [address] [facility] [address] [facility] [id number] 0 03/09 CMP Creat inine mg/dL 0.66 1.25 0.70 FINAL Marleneanabel Guzmán * [facility] , [address] [facility] [address] [facility] [id number] 0 03/09 CMP GFR estim ate ml/min /1.73m ^2 97.1 GFR is calculate d using the CKD-EPI equation. FINAL Marleneanabel Guzmán * [facility] , [address] [facility] [address] [facility] [id number] 0 03/09 CMP Gluco se mg/dL 74.0 100.0 363 Criti sami High FINAL Marlene Guzmán * [facility] , [address] [facility] [address] [facility] [id number] 0 03/09 CMP Potas sium mmol/L 3.5 5.1 3.9 FINAL Marlene Ramirez * [facility] , [address] [facility] [address] [facility] [id number] 0 03/09 CMP Sodiu m mmol/L 137.0 145.0 134 Low FINAL Marleneanabel Guzmán * [facility] , [address] [facility] [address] [facility] [id number] 0 03/09 CMP Bilir ubin, total mg/dL 0.2 1.3 1.1 FINAL Marleneanabel Guzmán * [facility] , [address] [facility] [id number] 0 03/09 CMP Total prote in g/dL 6.3 8.2 7.3 FINAL Marlene Guzmán * [facility] , [address] [facility] [address] [facility] [id number] 0 03/09 CBC w/ auto diff WBC K/uL 3.0 8.9 7.1 FINAL Marlene Guzmán [place] [facility] , [address] [place] [id number] 0 03/09 CBC w/ auto diff HGB g/dL 11.3 15.2 14.4 FINAL Marlene Guzmán [place] [facility] [place] [facility] , [address] [place] [id number] 0 03/09 CBC w/ auto diff PLT K/uL 113.0 364.0 179 FINAL Marlene Guzmán [place] [facility] , [address] [place] [id number] 0 03/09 CBC w/ auto diff Tammy # (ANC) K/uL 1.6 6.6 4.7 FINAL Marlene Guzmán [facility] [place] [facility] , [address] [place] [id number] 0 03/09 CBC w/ auto diff Tammy % % 43.0 74.0 65.7 FINAL Marlene Guzmán [place] [facility] [place] [facility] , [address] [place] [id number] 0 03/09 CBC w/ auto diff IG % % 0.0 0.5 0.6 High FINAL Marlene Guzmán [place] [facility] [place] [facility] , [address] [place] [id number] 0 03/09 CBC w/ auto diff IG # K/uL 0.0 0.03 0.04 High FINAL Marlene Guzmán [place] [facility] [place] [facility] , [address] [place] [id number] 0 03/09 CBC w/ auto diff LY % % 14.0 41.0 25.8 FINAL Marlene Guzmán [place] [facility] [place] [facility] , [address] [place] [id number] 0 03/09 CBC w/ auto diff MO % % 6.0 15.0 6.2 FINAL Marlene Guzmán [place] [facility] [place] [facility] , [address] [place] [id number] 0 03/09 CBC w/ auto diff EO % % 0.0 7.0 1.1 FINAL Marlene Guzmán [place] [facility] [place] [facility] , [address] [place] [id number] 0 03/09 CBC w/ auto diff BA % % 0.0 2.0 0.6 FINAL Marlene Guzmán [place] [facility] [place] [facility] , [address] [place] [id number] 0 03/09 CBC w/ auto diff LY # K/uL 0.4 3.6 1.8 FINAL Marlene Guzmán [place] [facility] [place] [facility] , [address] [place] [id number] 0 03/09 CBC w/ auto diff MO # K/uL 0.2 1.3 0.4 FINAL Marlene Guzmán [place] [facility] [place] [facility] , [address] [place] [id number] 0 03/09 CBC w/ auto diff EO # K/uL 0.0 0.6 0.1 FINAL Marlene Guzmán [place] [facility] [place] [facility] , [address] [place] [id number] 0 03/09 CBC w/ auto diff BA # K/uL 0.0 0.2 0.0 FINAL Marlene Guzmán [place] [facility] [place] [facility] , [address] [place] [id number] 0 03/09 CBC w/ auto diff NRBC % #/100W BC 0.0 0.2 0.0 FINAL Marlene Guzmán [place] [facility] [place] [facility] , [address] [place] [id number] 0 03/09 CBC w/ auto diff RBC M/uL 3.9 5.1 5.08 FINAL Marlene Guzmán [place] [facility] , [address] [place] [id number] 0 03/09 CBC w/ auto diff HCT % 35.0 48.0 42.9 FINAL Marlene Guzmán [facility] [place] [facility] , [address] [place] [id number] 0 03/09 CBC w/ auto diff MCV fL 80.0 104.0 84.4 FINAL Marlene Guzmán [facility] [place] [facility] , [address] [place] [id number] 0 03/09 CBC w/ auto diff MCH pg 26.0 35.0 28.3 FINAL Marlene Guzmán [facility] [place] [facility] , [address] [place] [id number] 0 03/09 CBC w/ auto diff MCHC g/dL 30.0 35.0 33.6 FINAL Marlene Guzmán [facility] [place] [facility] , [address] [place] [id number] 0 03/09 CBC w/ auto diff MPV fL 9.5 13.4 9.6 FINAL Marlene Guzmán [place] [facility] , [address] [place] [id number] 0 03/09 CBC w/ auto diff RDW % 11.4 16.1 14.[address] [facility] On[facility] , [address] [facility] [id number] 0 03/09 Total prote in g/dL 6.3 8.2 7.1 FINAL Marlene Guzmán * [facility] , [address] [facility] [address] [facility] [id number] 0 03/09 Album in, SPE g/dL 3.31 5.31 4.70 FINAL Marlene Gzumán * [facility] , [address] [facility] [address] [id number] 0 03/09 Alpha -1 globu tony g/dL 0.19 0.42 0.23 FINAL Marlene Guzmán * [facility] , [address] [facility] [address] [id number] 0 03/09 Alpha -2 globu tony g/dL 0.44 1.03 0.52 FINAL Marlene Guzmán * [facility] , [address] [facility] [address] [id number] 0 03/09 Beta globu tony g/dL 0.52 1.05 0.80 FINAL Marlene Guzmán * [facility] , [address] [facility] [address] [id number] 0 03/09 Gamma globu tony g/dL 0.59 1.46 0.85 FINAL Marlene Guzmán * [facility] , [address] [facility] [address] [id number] 0 03/09 Gemma Rodriguez in Lab resul t note Previou sly identif ied parapro teins detecte d in gamma region. Is now 0.3 and 0.4 gm/dL. Interpr eted and signed by Luis Guillermo MD on 025 FINAL Marlene Guzmán * [facility] , [address] [facility] [id number] 0 03/09 M-spi ke, SPE, g/dL g/dL 0.0 0.0 0.3 High FINAL Marlene Guzmán * [facility] , [address] [facility] [id number] 0 03/09 M-spi ke 2, SPE g/dL 0.0 0.0 0.4 High FINAL Marlene Guzmán * [facility] , [address] [facility] [id number] 0 03/09 Immun oglob ulin measu remen t IgG, quant mg/dL 610.0 1616.0 1080.49 Test performed at [facility] on a Binding Site Optilite Analyzer that uses a turbidime tric method for analysis. Patient testing should not be performed using multiple methodolo gies due to analytica l variation seen between test methodolo gies. FINAL Marlene Guzmán * [facility] , [address] [facility] [id number] 0 03/09 Immun oglob ulin measu remen t IgA, quant mg/dL 61.0 348.0 577.26 High Test performed at [facility] on a Binding Site Optilite Analyzer that uses a turbidime tric method for analysis. Patient testing should not be performed using multiple methodolo gies due to analytica l variation seen between test methodolo gies. FINAL Marlene Guzmán * [facility] , [address] [facility] [id number] 0 03/09 Immun oglob ulin measu remen t IgM, quant mg/dL 35.0 242.0 91.00 Test performed at [facility] on a Binding Site Optilite Analyzer that uses a turbidime tric method for analysis. Patient testing should not be performed using multiple methodolo gies due to analytica l variation seen between test methodolo josefina. FINAL Marlene Guzmán * [facility] , [address] [facility] [id number] 0 04/03 [facility] other lab See [...] 04/10/2025 Body Temperature 97.50 Notes Section * FACETOR Onc Consult Note (Amended) GYNECOLOGIC ONCOLOGY CONSULT Patient Name: VERO HENRY Patient : 1960 Patient Referring Physician: Malissa Hernandez MD (BAND CUTTER) Primary GYNOncologist: Marlene Guzmán (Hematology/Oncology) Date of Service: 08/03/2023 Reason for Consult: I was asked by Dr. Malissa Hernandez to see Vero Henry in regard to a recent diagnosis of EIN/CAH. 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 * Presented with c/o [...] with myosure * Pathology:?? 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 Anxious, , female with somewhat [...] record:05/23/2019 Last record:05/23/2019; ) Assessment & Plan (Environmental Research Scientist Oncology): 63?? y.o. 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
--- OUTSIDE RECORDS SUMMARY | 2025-07-06 23:33 | XMS_ITS ---
Author Name Interface, [id number] lity Address [address] [facility] [address] [place] [address] [facility] Address [address] [facility] [address] [place] [address] Support Name Relationship Address Phone Greg Ch [...] FINAL [facility] [place], [address] [place] [address] 210 [facility] [id number] 0 Phone: () - 11/22 Appea ying (ua) Clear FINAL [facility] [place], [address] [place] [address] 210 [facility] [phone] 0 Phone: () - 11/22 Gluco se (ua), qual 500.0% Abnor mal FINAL [facility] [place], [address] [facility] 210 [facility] [phone] 0 Phone: () - 11/22 Bilir ubin (ua) Negativ e FINAL [facility] [place], [address] [place] [address] 210 [facility] [phone] 0 Phone: () - 11/22 Urina lysis , aceto ne or keton e chapo s measu remen t Negativ e FINAL [facility] [place], [address] [facility] 210 [place] [id number] 0 Phone: () - 11/22 Speci fic gravi ty (ua) 1.005 1.02 1.025% Abnor mal FINAL [facility] [place], [address] [facility] 210 [place] [phone] 0 Phone: () - 11/22 Blood (ua) Negativ e FINAL [facility] [place], [address] [place] [address] 210 [place] [id number] 0 Phone: () - 11/22 pH (ua) 5.0 8.0 6.0% FINAL [facility] [place], [address] [place] [address] 210 [facility] [phone] 0 Phone: () - 11/22 Prote in (ua) Negativ e FINAL [facility] [place], [address] [place] [address] 210 [place] [phone] 0 Phone: () - 11/22 Urobi linog en (ua) 0.2 1.0 0.2% FINAL [facility] [place], [address] [place] [address] 210 [place] [phone] 0 Phone: () - 11/22 Nitri te (ua) Negativ e FINAL [facility] [place], [address] [place] [address] 210 [place] [phone] 0 Phone: () - 11/22 Leuko cyte jerson ase (ua), qual Negativ e FINAL [facility]sa [facility] [place], [address] [place] [address] 210 [place] [phone] 0 Phone: () - 11/22 UA comme nt 1 Dipstic k negativ e- Culture ordered per provide r FINAL [facility]sa [facility] [place], [address] [place] [address] 210 [place] [phone] 0 Phone: () - 11/22 Urine cultu re panel CULTU RE, URINE , ROUTI NE SEE NOTE Abnor mal 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 FINAL Hafsa Bud [facility], [facility] [address] [facility] [id number] 4 12/18 [facility] other lab See machining technician d 04/18 Total prote in g/dL 6.3 8.2 6.9 FINAL Marlene Guzmán * [facility], [address] [facility] [address] [place] [address] [id number] 0 04/18 Album in, SPE g/dL 3.31 5.31 3.97 FINAL Marlene Guzmán * [facility], [facility] [address] [place] [address] [id number] 0 04/18 Alpha -1 globu tony g/dL 0.19 0.42 0.26 FINAL Marlene Guzmán * [facility], [facility] [address] [place] [address] [id number] 04/18 Alpha -2 globu tony g/dL 0.44 1.03 0.63 FINAL Marlene Guzmán * [facility] [address] [place] [address] [id number] 0 04/18 Beta globu tony g/dL 0.52 1.05 0.95 FINAL Marlene Guzmán * [facility], [address] [facility] [address] [place] [address] [id number] 04/18 Gamma globu tony g/dL 0.59 1.46 1.10 FINAL Marlene Guzmán * [facility], [address] [facility] [address] [place] [address] [id number] 0 04/18 Elect Gemma layton in Lab resul t note Previou sly identif ied parapro teins detecte d in gamma region. Were 0.3 and 0.4 gm/dL, now 0.3 and 0.3 gm/dL. Interpr eted and signed by Adrienne Swanson MD on 024 FINAL Marlene Guzmán * [facility], [facility] [address] [place] [address] [id number] 04/18 M-spi ke, SPE, g/dL g/dL 0.0 0.0 0.3 High FINAL Marleneanabel Guzmán * [facility], [address] [facility] [id number] 0 04/18 M-spi ke 2, SPE g/dL 0.0 0.0 0.3 High FINAL Marlene Guzmán * [facility], [address] [facility] [address] [facility] [id number] 0 04/18 Immun oglob ulin measu remen t IgG, quant mg/dL 610.0 1616.0 946.67 Test performed at [facility] on a Binding Site Optilite Analyzer that uses a turbidime tric method for analysis. Patient testing should not be performed using multiple methodolo gies due to analytica l variation seen between test methodolo gies. FINAL Marlene Guzmán * [facility], [address] [facility] [address] [id number] 0 04/18 Immun oglob ulin measu remen t IgA, quant mg/dL 61.0 348.0 493.08 High Test performed at [facility] on a Binding Site Optilite Analyzer that uses a turbidime tric method for analysis. Patient testing should not be performed using multiple methodolo gies due to analytica l variation seen between test methodolo gies. FINAL Marlene Guzmán * [facility], [address] [facility] [address] [id number] 0 04/18 Immun oglob ulin measu remen t IgM, quant mg/dL 35.0 242.0 75.62 Test performed at [facility] on a Binding Site Optilite Analyzer that uses a turbidime tric method for analysis. Patient testing should not be performed using multiple methodolo gies due to analytica l variation seen between test methodolo gies. FINAL Marlene Guzmán * [facility] [place], [address] [facility] [address] [id number] 0 04/18 Free kappa / lambd a with K/L ratio , serum Langley light chain , free, serum , mg/dL mg/dL 0.33 1.94 3.62 High Test performed at [facility] on a Binding Site Optilite Analyzer that uses a turbidime tric method for analysis. Patient testing should not be performed using multiple methodolo gies due to analytica l variation seen between test methodolo gies. FINAL Marlene Strodu [facility], [address] [facility] [address] [id number] 0 04/18 Free kappa / lambd a with K/L ratio , serum Lambd a light chain , free, serum , mg/dL mg/dL 0.57 2.63 3.13 High Test performed at [facility] on a Binding Site Optilite Analyzer that uses a turbidime tric method for analysis. Patient testing should not be performed using multiple methodolo gies due to analytica l variation seen between test methodolo gies. FINAL Marlene [facility], [address] [facility] [address] [id number] 0 04/18 Free kappa / lambd a with K/L ratio , serum K/L light chain ratio , free, serum 0.26 1.65 1.16% FINAL Marlene [facility], [address] [facility] [address] [id number] 0 04/18 CBC w/ auto diff WBC K/uL 3.0 8.9 7.0 FINAL Marlene pagan [facility] [place], [address] [facility] [address] [facility] [id number] 0 Phone: () - 04/18 CBC w/ auto diff HGB g/dL 11.3 15.2 14.0 FINAL Marlene pagna [facility] - [place], [address] [place] [id number] 0 Phone: () - 04/18 CBC w/ auto diff PLT K/uL 113.0 364.0 164 FINAL Marlene [facility]i [facility] - [place], [address] [place] [id number] 0 Phone: () - 04/18 CBC w/ auto diff Tammy # (ANC) K/uL 1.6 6.6 4.5 FINAL Marlene [facility] - [place], [address] [place] [id number] 0 Phone: () - 04/18 CBC w/ auto diff Tammy % % 43.0 74.0 64.0 FINAL Marlene Ramirez [facility] [place], [address] [place] [id number] 0 Phone: () - 04/18 CBC w/ auto diff IG % % 0.0 0.5 0.3 FINAL Marlene Ramirez [facility] [place], [address] [place] [id number] 0 Phone: () - 04/18 CBC w/ auto diff IG # K/uL 0.0 0.03 0.02 FINAL Marlene Ramirez [facility] [place], [address] [place] [id number] 0 Phone: () - 04/18 CBC w/ auto diff LY % % 14.0 41.0 28.2 FINAL Marlene Guzmán [facility] [place], [address] [place] [id number] 0 Phone: () - 04/18 CBC w/ auto diff MO % % 6.0 15.0 6.0 FINAL Marlene Guzmán [facility] [place], [address] [place] [id number] 0 Phone: () - 04/18 CBC w/ auto diff EO % % 0.0 7.0 1.1 FINAL Marlene Ramirez [facility] [place], [address] [place] [id number] 0 Phone: () - 04/18 CBC w/ auto diff BA % % 0.0 2.0 0.4 FINAL Marlene [facility] [place], [address] [place] [id number] 0 Phone: () - 04/18 CBC w/ auto diff LY # K/uL 0.4 3.6 2.0 FINAL Marlene Rubi a [facility] - [place], [address] [place] [id number] 0 Phone: () - 04/18 CBC w/ auto diff MO # K/uL 0.2 1.3 0.4 FINAL Marlene [facility] - [place], [address] [place] [id number] 0 Phone: () - 04/18 CBC w/ auto diff EO # K/uL 0.0 0.6 0.1 FINAL Marlene Rubi a [facility] - [place], [address] [place] [id number] 0 Phone: () - 04/18 CBC w/ auto diff BA # K/uL 0.0 0.2 0.0 FINAL Marlene Rubi a [facility] - [place], [address] [place] [id number] 0 Phone: () - 04/18 CBC w/ auto diff NRBC % #/100W BC 0.0 0.2 0.0 FINAL Marlene [facility]i [facility] - [place], [address] [place] [id number] 0 Phone: () - 04/18 CBC w/ auto diff RBC M/uL 3.9 5.1 4.84 FINAL Marlene [facility] - [place], [address] [place] [id number] 0 Phone: () - 04/18 CBC w/ auto diff HCT % 35.0 48.0 40.4 FINAL Marlene Guzmán [facility] [place], [address] [place] [id number] 0 Phone: () - 04/18 CBC w/ auto diff MCV fL 80.0 104.0 83.5 FINAL Marlene Guzmán [facility] [place], [address] [place] [id number] 0 Phone: () - 04/18 CBC w/ auto diff MCH pg 26.0 35.0 28.9 FINAL Marlene Guzmán [facility] [place], [address] [place] [id number] 0 Phone: () - 04/18 CBC w/ auto diff MCHC g/dL 30.0 35.0 34.7 FINAL Marlene Guzmán [facility] [place], [address] [place] [id number] 0 Phone: () - 04/18 CBC w/ auto diff MPV fL 9.5 13.4 9.7 FINAL Marlene Guzmán [facility] [place], [address] [place] [id number] 0 Phone: () - 04/18 CBC w/ auto diff RDW % 11.4 16.1 13.80 FINAL Marlene Guzmán [facility] [place], [address] [place] [id number] 0 Phone: () - 04/18 CMP Album in g/dL 3.5 5.0 4.0 FINAL Marlene Guzmán * [facility] [place], [address] [place] [id number] 0 04/18 CMP Alkal ine phosp hatas e U/L 36.0 125.0 105 FINAL Marlene Guzmán * [facility] [place], [address] [place] [id number] 0 04/18 CMP ALT/S GPT U/L 0.0 34.0 35 High FINAL Marlene Guzmán * [facility], [address] [facility] [address] [id number] 0 04/18 CMP AST/S GOT U/L 14.0 36.0 44 High FINAL Marlene Guzmán * [facility], [address] [facility] [address] [id number] 0 04/18 CMP BUN mg/dL 7.0 17.0 21.0 High FINAL Marlene Guzmán * [facility], [address] [facility] [address] [id number] 0 04/18 CMP Calci um mg/dL 8.4 10.2 8.8 FINAL Marlene Guzmán * [facility], [address] [facility] [address] [id number] 0 04/18 CMP Chlor nilson mmol/L 96.0 107.0 106 FINAL Marlene Guzmán * [facility], [address] [facility] [address] [id number] 0 04/18 CMP CO2 mmol/L 22.0 30.0 [...] hour stability window. FINAL Marlene Guzmán * [facility], [address] [facility] [address] [id number] 0 04/18 CMP Creat inine mg/dL 0.66 1.25 0.70 FINAL Marlene Guzmán * [facility], [address] [facility] [id number] 0 04/18 CMP GFR estim ate ml/min /1.73m ^2 97.7 GFR is calculate d using the CKD-EPI equation. FINAL Marlene Guzmán * [facility], [address] [facility] [id number] 0 04/18 CMP Gluco se mg/dL 74.0 100.0 267 High FINAL Marlene Guzmán * [facility], [address] [facility] [id number] 0 04/18 CMP Potas sium mmol/L 3.5 5.1 4.0 FINAL Marlene Guzmán * [facility], [address] [facility] [id number] 0 04/18 CMP Sodiu m mmol/L 137.0 145.0 136 Low FINAL Marlene Guzmán * [facility], [address] [facility] [id number] 0 04/18 CMP Bilir ubin, total mg/dL 0.2 1.3 1.0 FINAL Marlene Guzmán * [facility], [address] [facility] [id number] 0 04/18 CMP Total prote in g/dL 6.3 8.2 7.3 FINAL Marlene Guzmán * [facility], [address] [facility] [id number] 0 04/18 [facility] other lab See machining technician d 12/20 [facility] other lab See machining technician d 12/20 Misc other lab See machining technician d 03/09 Free kappa / lambd a with K/L ratio , serum Langley light chain , free, serum , mg/dL mg/dL 0.33 1.94 4.35 High Test performed at [facility] on a Binding Site Optilite Analyzer that uses a turbidime tric method for analysis. Patient testing should not be performed using multiple methodolo gies due to analytica l variation seen between test methodolo gies. FINAL Marlene Guzmán * [facility] , [address] [facility] [address] [facility] [id number] 0 03/09 Free kappa / lambd a with K/L ratio , serum Lambd a light chain , free, serum , mg/dL mg/dL 0.57 2.63 3.83 High Test performed at [facility] on a Binding Site Optilite Analyzer that uses a turbidime tric method for analysis. Patient testing should not be performed using multiple methodolo gies due to analytica l variation seen between test methodolo gies. FINAL Marlene Guzmán * [facility] , [address] [facility] [address] [id number] 0 03/09 Free kappa / lambd a with K/L ratio , serum K/L light chain ratio , free, serum 0.26 1.65 1.14% FINAL Marlene Guzmán * [facility] , [address] [facility] [address] [id number] 0 03/09 CMP Album in g/dL 3.5 5.0 3.8 FINAL Marlene Guzmán * [facility] , [address] [facility] [address] [id number] 0 03/09 CMP Alkal ine phosp hatas e U/L 36.0 125.0 106 FINAL Marlene Guzmán * [facility] , [address] [facility] [address] [id number] 0 03/09 CMP ALT/S GPT U/L 0.0 34.0 37 High FINAL Marlene Guzmán * [facility] , [address] [facility] [address] [id number] 0 03/09 CMP AST/S GOT U/L 14.0 36.0 36 FINAL Marlene Ramirez * [facility] , [address] [facility] [address] [facility] [id number] 0 03/09 CMP BUN mg/dL 7.0 17.0 18.0 High FINAL Marlene Guzmán * [facility] , [address] [facility] [address] [facility] [id number] 0 03/09 CMP Calci um mg/dL 8.4 10.2 8.9 FINAL Marlene Guzmán * [facility] , [address] [facility] [address] [facility] [id number] 0 03/09 CMP Chlor nilson mmol/L 96.0 107.0 99 FINAL Marlene Guzmán * [facility] , [address] [facility] [address] [facility] [id number] 0 03/09 CMP CO2 mmol/L 22.0 30.0 [...] hour stability window. FINAL Marlene Guzmán * [facility] , [address] [facility] [address] [facility] [id number] 0 03/09 CMP Creat inine mg/dL 0.66 1.25 0.70 FINAL Marlene Guzmán * [facility] , [address] [facility] [address] [facility] [id number] 0 03/09 CMP GFR estim ate ml/min /1.73m ^2 97.1 GFR is calculate d using the CKD-EPI equation. FINAL Marlene Guzmán * [facility] , [address] [facility] [address] [id number] 0 03/09 CMP Gluco se mg/dL 74.0 100.0 363 Criti sami High FINAL Marlene Guzmán * [facility] , [address] [facility] [address] [facility] [id number] 0 03/09 CMP Potas sium mmol/L 3.5 5.1 3.9 FINAL Marlene Guzmán * [facility] , [address] [facility] [address] [facility] [id number] 0 03/09 CMP Sodiu m mmol/L 137.0 145.0 134 Low FINAL Marlene Guzmán * [facility] , [address] [facility] [address] [facility] [id number] 0 03/09 CMP Bilir ubin, total mg/dL 0.2 1.3 1.1 FINAL Marlene Guzmán * [facility] , [address] [facility] [address] [facility] [id number] 0 03/09 CMP Total prote in g/dL 6.3 8.2 7.3 FINAL Marlene Guzmán * [facility] , [address] [facility] [address] [facility] [id number] 0 03/09 CBC w/ auto diff WBC K/uL 3.0 8.9 7.1 FINAL Marlene Guzmán [place] [facility] [place] [facility] , [address] [place] [id number] 0 03/09 CBC w/ auto diff HGB g/dL 11.3 15.2 14.4 FINAL Marlene Guzmán [place] [facility] [place] [facility] , [address] [place] [id number] 0 03/09 CBC w/ auto diff PLT K/uL 113.0 364.0 179 FINAL Marlene Guzmán [place] [facility] [place] [facility] , [address] [place] [id number] 0 03/09 CBC w/ auto diff Tammy # (ANC) K/uL 1.6 6.6 4.7 FINAL Marlene Guzmán [place] [facility] [place] [facility] , [address] [place] [id number] 0 03/09 CBC w/ auto diff Tammy % % 43.0 74.0 65.7 FINAL Marlene Guzmán [place] [facility] [place] [facility] , [address] [place] [id number] 0 03/09 CBC w/ auto diff IG % % 0.0 0.5 0.6 High FINAL Marlene Guzmán [place] [facility] [place] [facility] , [address] [place] [id number] 0 03/09 CBC w/ auto diff IG # K/uL 0.0 0.03 0.04 High FINAL Marlene Guzmán [place] [facility] [place] [facility] , [address] [place] [id number] 0 03/09 CBC w/ auto diff LY % % 14.0 41.0 25.8 FINAL Marlene Guzmán [place] [facility] [place] [facility] , [address] [place] [id number] 0 03/09 CBC w/ auto diff MO % % 6.0 15.0 6.2 FINAL Marlene Guzmán [place] [facility] [place] [facility] , [address] [place] [id number] 0 03/09 CBC w/ auto diff EO % % 0.0 7.0 1.1 FINAL Marlene Guzmán [place] [facility] [place] [facility] , [address] [place] [id number] 0 03/09 CBC w/ auto diff BA % % 0.0 2.0 0.6 FINAL Marlene Guzmán [place] [facility] [place] [facility] , [address] [place] [id number] 0 03/09 CBC w/ auto diff LY # K/uL 0.4 3.6 1.8 FINAL Marlene Guzmán [place] [facility] [place] [facility] , [address] [place] [id number] 0 03/09 CBC w/ auto diff MO # K/uL 0.2 1.3 0.4 FINAL Marlene Guzmán [place] [facility] [place] [facility] , [address] [place] [id number] 0 03/09 CBC w/ auto diff EO # K/uL 0.0 0.6 0.1 FINAL Marlene Guzmán [place] [facility] [place] [facility] , [address] [place] [id number] 0 03/09 CBC w/ auto diff BA # K/uL 0.0 0.2 0.0 FINAL Marlene Guzmán [place] [facility] [place] [facility] , [address] [place] [id number] 0 03/09 CBC w/ auto diff NRBC % #/100W BC 0.0 0.2 0.0 FINAL Marlene Guzmán [place] [facility] [place] [facility] , [address] [place] [id number] 0 03/09 CBC w/ auto diff RBC M/uL 3.9 5.1 5.08 FINAL Marlene Guzmán [place] [facility] [place] [facility] , [address] [place] [id number] 0 03/09 CBC w/ auto diff HCT % 35.0 48.0 42.9 FINAL Marlene Guzmán [facility] , [address] [place] [facility] [id number] 0 03/09 CBC w/ auto diff MCV fL 80.0 104.0 84.4 FINAL Marlene Guzmán [facility] , [address] [facility] [address] [place] [facility] [id number] 0 03/09 CBC w/ auto diff MCH pg 26.0 35.0 28.3 FINAL Marlene Guzmán [facility] , [address] [facility] [address] [facility] [id number] 0 03/09 CBC w/ auto diff MCHC g/dL 30.0 35.0 33.6 FINAL Marlene Guzmán [facility] , [address] [facility] [address] [facility] [id number] 0 03/09 CBC w/ auto diff MPV fL 9.5 13.4 9.6 FINAL Marlene Guzmán [facility] , [address] [facility] [address] [facility] [id number] 0 03/09 CBC w/ auto diff RDW % 11.4 16.1 14.20 FINAL Marlene Guzmán [facility] , [address] [facility] [address] [facility] [id number] 0 03/09 Immun oglob ulin measu remen t IgG, quant mg/dL 610.0 1616.0 1080.49 Test performed at [facility] on a Binding Site Optilite Analyzer that uses a turbidime tric method for analysis. Patient testing should not be performed using multiple methodreal rocha due to analytica l variation seen between test methodreal rocha. FINAL Marlene Guzmán * [facility] , [address] [facility] [id number] 0 03/09 Immun oglob ulin measu remen t IgA, quant mg/dL 61.0 348.0 577.26 High Test performed at [facility] on a Binding Site Optilite Analyzer that uses a turbidime tric method for analysis. Patient testing should not be performed using multiple methodolo gies due to analytica l variation seen between test methodolo gies. FINAL Marlene Guzmán * [facility] , [facility] [address] [id number] 0 03/09 Immun oglob ulin measu remen t IgM, quant mg/dL 35.0 242.0 91.00 Test performed at [facility] on a Binding Site Optilite Analyzer that uses a turbidime tric method for analysis. Patient testing should not be performed using multiple methodolo gies due to analytica l variation seen between test methodolo gies. FINAL Marlene Guzmán * [facility] , [facility] [address] [id number] 0 03/09 Total prote in g/dL 6.3 8.2 7.1 FINAL Marlene Guzmán * [facility] , [facility] [address] [place] [address] [id number] 0 03/09 Album in, SPE g/dL 3.31 5.31 4.70 FINAL Marlene Guzmán * [facility] , [facility] [address] [id number] 0 03/09 Alpha -1 globu tony g/dL 0.19 0.42 0.23 FINAL Marlene Guzmán * [facility] , [facility] [address] [id number] 0 03/09 Alpha -2 globu tony g/dL 0.44 1.03 0.52 FINAL Marlene Guzmán * [facility] , [facility] [address] [id number] 0 03/09 Beta globu tony g/dL 0.52 1.05 0.80 FINAL Marlene Guzmán * [facility] , [address] [facility] [address] [id number] 0 03/09 Gamma globu tony g/dL 0.59 1.46 0.85 FINAL Marlene Guzmán * [facility] , [address] [facility] [address] [id number] 0 03/09 Elect Gemma layton in Lab resul t note Previou sly identif ied parapro teins detecte d in gamma region. Is now 0.3 and 0.4 gm/dL. Interpr eted and signed by Luis Guillermo MD on 025 FINAL Marlene Guzmán * [facility] , [facility] [address] [id number] 0 03/09 M-spi ke, SPE, g/dL g/dL 0.0 0.0 0.3 High FINAL Marlene Guzmán * [facility] , [address] [facility] [address] [id number] 0 03/09 M-spi ke 2, SPE g/dL 0.0 0.0 0.4 High FINAL Marlene Guzmán * [facility] , [address] [facility] [address] [id number] 0 04/03 Misc other lab See machining technician d Medications Date Name Route Dose Frequency [...] 70 04/10/2025 BMI 53.23 Notes Section * REFERRAL MANAGER Follow-Up GYNECOLOGIC ONCOLOGY FOLLOW-UP VISIT Patient Name: JOSE ANGEL CH : 1960 Date of Visit: 11/23/2023 Referring Provider: Malissa Hernandez MD (POSTAL SERVICE MAIL PROCESSOR) Attending: Marlene Guzmán (Hematology/Oncology) Chief Complaint (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 History of Present Illness ([facility]): 63 y.o.?? 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 Anxious, , female tearful??throughout visit. [...] record:05/23/2019 Last record:05/23/2019; ) Assessment & Plan ([facility]): 63?? y.o. with abnormal uterine bleeding/PMB [...]
--- OUTSIDE RECORDS SUMMARY | 2025-07-06 23:33 | XMS_ITS ---
Author Name Interface, [id number] lity Address [address] [facility] [address] [place] [address] [facility] Oncology Address [address] [facility] [address] [place] [address] Support Name Relationship Address Phone Greg Henry [...] Specimen Source Lab Address 11/05 [facility] [place] See report writer d 11/08 Mis other lab See report writer d 11/22 Color (ua) Yellow FINAL [facility] [place], [address] [facility] [address] [place] [phone] 0 Phone: () - 11/22 Appea ying (ua) Clear FINAL [facility] [place], [address] [facility] [address] [place] [phone] 0 Phone: () - 11/22 Gluco se (ua), qual 500.0% Abnor mal FINAL [facility] [place], [address] [facility] [address] [place] [phone] 0 Phone: () - 11/22 Bilir ubin (ua) Negativ e FINAL [facility] [place], [address] [facility] [address] [place] [phone] 0 Phone: () - 11/22 Urina lysis , aceto ne or keton e chapo s measu remen t Negativ e FINAL [facility] [place], [address] [facility] [address] [place] [phone] 0 Phone: () - 11/22 Speci fic gravi ty (ua) 1.005 1.02 1.025% Abnor mal FINAL [facility] [place], [address] [facility] [address] [place] [phone] 0 Phone: () - 11/22 Blood (ua) Negativ e FINAL [facility] [place], [address] [facility] [address] [place] [phone] 0 Phone: () - 11/22 pH (ua) 5.0 8.0 6.0% FINAL [facility] [place], [address] [facility] [address] [place] [phone] 0 Phone: () - 11/22 Prote in (ua) Negativ e FINAL [facility] [place], [address] [place] [address] [address] [place] [phone] 0 Phone: () - 11/22 Urobi linog en (ua) 0.2 1.0 0.2% FINAL [facility] [place], [address] [place] [address] [address] [place] [phone] 0 Phone: () - 11/22 Nitri te (ua) Negativ e FINAL [facility] [place], [address] [facility] [address] [place] [phone] 0 Phone: () - 11/22 Leuko cyte jerson ase (ua), qual Negativ e FINAL [facility] [place], [address] [facility] [address] [place] [phone] 0 Phone: () - 11/22 UA comme nt 1 Dipstic k negativ e- Culture ordered per provide r FINAL [facility]abel [facility] [place], [address] [facility] [address] [facility] [phone] 0 Phone: () - 11/22 Urine cultu re panel CULTU RE, URINE , ROUTI NE SEE NOTE Abnor mal CULTURE, URINE, ROUTINEMi microbiology director Number: [id number] est Status: FinalSpec imen Source: UrineSpec imen [...] f. FINAL Hafsa Farrell [facility] [address] [facility] [phone] 4 12/18 [facility] [place] See report writer d 04/18 Total prote in g/dL 6.3 8.2 6.9 FINAL Marlene Ramirez * [facility], [address] [id number] 0 04/18 Album in, SPE g/dL 3.31 5.31 3.97 FINAL Marlene Guzmán * [facility], [address] [id number] 0 04/18 Alpha -1 globu tony g/dL 0.19 0.42 0.26 FINAL Marlene Guzmán * [facility], [address] [id number] 0 04/18 Alpha -2 globu tony g/dL 0.44 1.03 0.63 FINAL Marlene Guzmán * [facility], [address] [id number] 0 04/18 Beta globu tony g/dL 0.52 1.05 0.95 FINAL Marlene Ramirez * [facility], [address] [id number] 0 04/18 Gamma globu tony g/dL 0.59 1.46 1.10 FINAL Marlene Guzmán * [facility], [address] [id number] 0 04/18 Gemma Rodriguez in Lab resul t note Previou sly identif ied parapro teins detecte d in gamma region. Were 0.3 and 0.4 gm/dL, now 0.3 and 0.3 gm/dL. Interpr eted and signed by Adrienne Swanson MD on 024 FINAL Marlene Guzmán * [facility], [address] [facility] [address] [id number] 0 04/18 M-spi ke, SPE, g/dL g/dL 0.0 0.0 0.3 High FINAL Marlene Guzmán * [facility], [address] [facility] [address] [id number] 0 04/18 M-spi ke 2, SPE g/dL 0.0 0.0 0.3 High FINAL Marleneanabel Guzmán * [facility], [facility] [address] [place] [id number] 0 04/18 Immun oglob ulin measu remen t IgG, quant mg/dL 610.0 1616.0 946.67 Test performed at [facility] on a Binding Bee [employer] (Astil[employer]) Optilite Analyzer that uses a turbidime tric method for analysis. Patient testing should not be performed using multiple methodolo gies due to analytica l variation seen between test methodolo gies. FINAL Marleneanabel Guzmán * [facility], [facility] [address] [place] [address] [id number] 0 04/18 Immun oglob ulin measu remen t IgA, quant mg/dL 61.0 348.0 493.08 High Test performed at [facility] on a Binding Bee [employer] (Astilbe) Optilite Analyzer that uses a turbidime tric method for analysis. Patient testing should not be performed using multiple methodolo gies due to analytica l variation seen between test methodolo gies. FINAL Marlene Guzmán * [facility], [address] [place] [address] [place] [address] [id number] 0 04/18 Immun oglob ulin measu remen t IgM, quant mg/dL 35.0 242.0 75.62 Test performed at [facility] on a Binding Site Optilite Analyzer that uses a turbidime tric method for analysis. Patient testing should not be performed using multiple methodolo gies due to analytica l variation seen between test methodolo gies. FINAL Marlene Forte a [facility], [facility]0 [facility] [address] [id number] 0 04/18 Free kappa / lambd a with K/L ratio , serum [place] light chain , free, serum , mg/dL mg/dL 0.33 1.94 3.62 High Test performed at [facility] on a Binding Site Optilite Analyzer that uses a turbidime tric method for analysis. Patient testing should not be performed using multiple methodolo gies due to analytica l variation seen between test methodolo gies. FINAL Marlene Rubi a [facility], [address] [facility] [address] [id number] 0 04/18 Free kappa / lambd a with K/L ratio , serum Lambd a light chain , free, serum , mg/dL mg/dL 0.57 2.63 3.13 High Test performed at [facility] on a Binding Bee [employer] (Astilbe) Optilite Analyzer that uses a turbidime tric method for analysis. Patient testing should not be performed using multiple methodolo gies due to analytica l variation seen between test methodolo gies. FINAL Marlene Rubi a [facility], [address] [id number] 0 04/18 Free kappa / lambd a with K/L ratio , serum K/L light chain ratio , free, serum 0.26 1.65 1.16% FINAL Marlene [facility] a [facility], [address] [id number] 0 04/18 CBC w/ auto diff WBC K/uL 3.0 8.9 7.0 FINAL Marlene Rubi [facility], [address] [facility] [phone] 0 Phone: () - 04/18 CBC w/ auto diff HGB g/dL 11.3 15.2 14.0 FINAL Marlene [facility] [place], [address] [place] [phone] 0 Phone: () - 04/18 CBC w/ auto diff PLT K/uL 113.0 364.0 164 FINAL Marlene [facility] [place], [address] [place] [id number] 0 Phone: () - 04/18 CBC w/ auto diff Tammy # (ANC) K/uL 1.6 6.6 4.5 FINAL Marlene [facility] - [place], [address] [place] [phone] 0 Phone: () - 04/18 CBC w/ auto diff Tammy % % 43.0 74.0 64.0 FINAL Marlene [facility] - [place], [address] [place] [id number] 0 Phone: () - 04/18 CBC w/ auto diff IG % % 0.0 0.5 0.3 FINAL Marlene [facility] - [place], [address] [place] [id number] 0 Phone: () - 04/18 CBC w/ auto diff IG # K/uL 0.0 0.03 0.02 FINAL Marlene [facility] - [place], [address] [place] [id number] 0 Phone: () - 04/18 CBC w/ auto diff LY % % 14.0 41.0 28.2 FINAL Marlene Rubi a [facility] - [place], [address] [place] [id number] 0 Phone: () - 04/18 CBC w/ auto diff MO % % 6.0 15.0 6.0 FINAL Marlene Guzmán [facility] [place], [address] [place] [id number] 0 Phone: () - 04/18 CBC w/ auto diff EO % % 0.0 7.0 1.1 FINAL Marlene [facility] - [place], [address] [place] [id number] 0 Phone: () - 04/18 CBC w/ auto diff BA % % 0.0 2.0 0.4 FINAL Mar[facility] - [place], [address] [place] [id number] 0 Phone: () - 04/18 CBC w/ auto diff LY # K/uL 0.4 3.6 2.0 FINAL Marlene Guzmán [facility] [place], [address] [place] [phone] 0 Phone: () - 04/18 CBC w/ auto diff MO # K/uL 0.2 1.3 0.4 FINAL Marlene Ramirez [facility] [place], [address] [place] [id number] 0 Phone: () - 04/18 CBC w/ auto diff EO # K/uL 0.0 0.6 0.1 FINAL Marlene Ramirez [facility] [place], [address] [place] [id number] 0 Phone: () - 04/18 CBC w/ auto diff BA # K/uL 0.0 0.2 0.0 FINAL Marlene Ramirez [facility] [place], [address] [place] [id number] 0 Phone: () - 04/18 CBC w/ auto diff NRBC % #/100W BC 0.0 0.2 0.0 FINAL Marlene Guzmán [facility] [place], [address] [place] [id number] 0 Phone: () - 04/18 CBC w/ auto diff RBC M/uL 3.9 5.1 4.84 FINAL Marlene Guzmán [facility] [place], [address] [place] [id number] 0 Phone: () - 04/18 CBC w/ auto diff HCT % 35.0 48.0 40.4 FINAL Marlene Rubi a [facility] - [place], [address] [place] [phone] 0 Phone: () - 04/18 CBC w/ auto diff MCV fL 80.0 104.0 83.5 FINAL Marlene [facility] - [place], [address] [place] [id number] 0 Phone: () - 04/18 CBC w/ auto diff MCH pg 26.0 35.0 28.9 FINAL Marlene Rubi a [facility] - [place], [address] [place] [id number] 0 Phone: () - 04/18 CBC w/ auto diff MCHC g/dL 30.0 35.0 34.7 FINAL Marlene Rubi a [facility] - [place], [address] [place] [id number] 0 Phone: () - 04/18 CBC w/ auto diff MPV fL 9.5 13.4 9.7 FINAL Marlene Rubi a [facility] - [place], [address] [place] [phone] 0 Phone: () - 04/18 CBC w/ auto diff RDW % 11.4 16.1 13.80 FINAL Marlene Rubi a [facility] - [place], [address] [place] [phone] 0 Phone: () - 04/18 CMP Album in g/dL 3.5 5.0 4.0 FINAL Marlene Guzmán * [facility] [place], [address] [place] [id number] 0 04/18 CMP Alkal ine phosp hatas e U/L 36.0 125.0 105 FINAL Marlene Guzmán * [facility] [place], [address] [facility] [id number] 0 04/18 CMP ALT/S GPT U/L 0.0 34.0 35 High FINAL Marlene Guzmán * [facility], [address] [facility] [id number] 0 04/18 CMP AST/S GOT U/L 14.0 36.0 44 High FINAL Marlene Guzmán * [facility], [address] [facility] [id number] 0 04/18 CMP BUN mg/dL 7.0 17.0 21.0 High FINAL Marlene Guzmán * [facility], [address] [facility] [id number] 0 04/18 CMP Calci um mg/dL 8.4 10.2 8.8 FINAL Marlene Guzmán * [facility], [address] [facility] [id number] 0 04/18 CMP Chlor nilson mmol/L 96.0 107.0 106 FINAL Marlene Guzmán * [facility], [address] [facility] [id number] 0 04/18 CMP CO2 mmol/L 22.0 30.0 [...] hour stability window. FINAL Marlene Guzmán * [facility], [address] [facility] [id number] 0 04/18 CMP Creat inine mg/dL 0.66 1.25 0.70 FINAL Marlene Guzmán * [facility], [address] [facility] [address] [id number] 0 04/18 CMP GFR estim ate ml/min /1.73m ^2 97.7 GFR is calculate d using the CKD-EPI equation. FINAL Marlene Stroud [facility], [address] [facility] [address] [id number] 0 04/18 CMP Gluco se mg/dL 74.0 100.0 267 High FINAL Marlene Guzmán * [facility], [facility]0 [facility] [address] [id number] 0 04/18 CMP Potas sium mmol/L 3.5 5.1 4.0 FINAL Marlene Guzmán * [facility], [address] [facility] [address] [id number] 0 04/18 CMP Sodiu m mmol/L 137.0 145.0 136 Low FINAL Marlene Guzmán * [facility], [address] [facility] [address] [id number] 0 04/18 CMP Bilir ubin, total mg/dL 0.2 1.3 1.0 FINAL Marlene Guzmán * [facility], [address] [facility] [facility] [address] [id number] 0 04/18 CMP Total prote in g/dL 6.3 8.2 7.3 FINAL Marlene Guzmán * [facility], [address] [facility] [id number] 0 04/18 [facility] [place] See report writer d 12/20 Mis other lab See report writer d 12/20 [facility] [place] See report writer d 03/09 Free kappa / lambd a with K/L ratio , serum [place] light chain , free, serum , mg/dL mg/dL 0.33 1.94 4.35 High Test performed at [facility] on a Binding Site Optilite Analyzer that uses a turbidime tric method for analysis. Patient testing should not be performed using multiple methodolo gies due to analytica l variation seen between test methodolo gies. FINAL Marlene Guzmán * [facility] , [address] [facility] [address] [facility] [id number] 0 03/09 Free kappa / lambd a [...] test methodolo gies. FINAL Marlene Guzmán * [facility] , [address] [facility] [address] [id number] 0 03/09 Free kappa / lambd a with K/L ratio , serum K/L light chain ratio , free, serum 0.26 1.65 1.14% FINAL Marlene Guzmán * [facility] , [address] [facility] [address] [id number] 0 03/09 CMP Album in g/dL 3.5 5.0 3.8 FINAL Marlene Guzmán * [facility] , [address] [facility] [address] [id number] 0 03/09 CMP Alkal ine phosp hatas e U/L 36.0 125.0 106 FINAL Marlene Guzmán * [facility] , [address] [facility] [address] [facility] [id number] 0 03/09 CMP ALT/S GPT U/L 0.0 34.0 37 High FINAL Marlene Guzmán * [facility] , [address] [facility] [id number] 0 03/09 CMP AST/S GOT U/L 14.0 36.0 36 FINAL Marlene Guzmán * [facility] , [address] [facility] [id number] 0 03/09 CMP BUN mg/dL 7.0 17.0 18.0 High FINAL Marlene Guzmán * [facility] , [address] [facility] [id number] 0 03/09 CMP Calci um mg/dL 8.4 10.2 8.9 FINAL Marlene Guzmán * [facility] , [address] [facility] [id number] 0 03/09 CMP Chlor nilson mmol/L 96.0 107.0 99 FINAL Marlene Guzmán * [facility] , [address] [facility] [id number] 0 03/09 CMP CO2 mmol/L 22.0 30.0 [...] hour stability window. FINAL Marleneanabel Guzmán * [facility] , [address] [facility] [id number] 0 03/09 CMP Creat inine mg/dL 0.66 1.25 0.70 FINAL Marlene Guzmán * [facility] , [address] [facility] [id number] 0 03/09 CMP GFR estim ate ml/min /1.73m ^2 97.1 GFR is calculate d using the CKD-EPI equation. FINAL Marlene Ramirez * [facility] , [address] [facility] [id number] 0 03/09 CMP Gluco se mg/dL 74.0 100.0 363 Criti sami High FINAL Marlene Ramirez * [facility] , [address] [facility] [id number] 0 03/09 CMP Potas sium mmol/L 3.5 5.1 3.9 FINAL Marlene Ramirez * [facility] , [address] [facility] [id number] 0 03/09 CMP Sodiu m mmol/L 137.0 145.0 134 Low FINAL Marlene Ramirez * [facility] , [address] [facility] [id number] 0 03/09 CMP Bilir ubin, total mg/dL 0.2 1.3 1.1 FINAL Marlene Ramirez * [facility] , [address] [facility] [id number] 0 03/09 CMP Total prote in g/dL 6.3 8.2 7.3 FINAL Marlene Guzmán * [facility] , [address] [facility] [id number] 0 03/09 CBC w/ auto diff WBC K/uL 3.0 8.9 7.1 FINAL Marlene Guzmán [place] [facility] [place] [facility] , [address] [place] [id number] 0 03/09 CBC w/ auto diff HGB g/dL 11.3 15.2 14.4 FINAL Marlene Guzmán [place] [facility] [place] [facility] , [address] [place] [id number] 0 03/09 CBC w/ auto diff PLT K/uL 113.0 364.0 179 FINAL Marlene Guzmán [place] [facility] [place] [facility] , [address] [place] [id number] 0 03/09 CBC w/ auto diff Tammy # (ANC) K/uL 1.6 6.6 4.7 FINAL Marlene Guzmán [place] [facility] [place] [facility] , [address] [place] [id number] 0 03/09 CBC w/ auto diff Tammy % % 43.0 74.0 65.7 FINAL Marlene Guzmán [place] [facility] [place] [facility] , [address] [place] [id number] 0 03/09 CBC w/ auto diff IG % % 0.0 0.5 0.6 High FINAL Marlene Guzmán [place] [facility] [place] [facility] , [address] [place] [id number] 0 03/09 CBC w/ auto diff IG # K/uL 0.0 0.03 0.04 High FINAL Marlene Guzmán [place] [facility] [place] [facility] , [address] [place] [id number] 0 03/09 CBC w/ auto diff LY % % 14.0 41.0 25.8 FINAL Marlene Guzmán [place] [facility] [place] [facility] , [address] [place] [id number] 0 03/09 CBC w/ auto diff MO % % 6.0 15.0 6.2 FINAL Marlene Guzmán [place] [facility] [place] [facility] , [address] [place] [id number] 0 03/09 CBC w/ auto diff EO % % 0.0 7.0 1.1 FINAL Marlene Guzmán [place] [facility] [place] [facility] , [address] [place] [id number] 0 03/09 CBC w/ auto diff BA % % 0.0 2.0 0.6 FINAL Marlene Guzmán [place] [facility] [place] [facility] , [address] [place] [id number] 0 03/09 CBC w/ auto diff LY # K/uL 0.4 3.6 1.8 FINAL Marlene Guzmán [place] [facility] [place] [facility] , [address] [place] [id number] 0 03/09 CBC w/ auto diff MO # K/uL 0.2 1.3 0.4 FINAL Marlene Guzmán [place] [facility] [place] [facility] , [address] [place] [id number] 0 03/09 CBC w/ auto diff EO # K/uL 0.0 0.6 0.1 FINAL Marlene Guzmán [place] [facility] [place] [facility] , [address] [place] [id number] 0 03/09 CBC w/ auto diff BA # K/uL 0.0 0.2 0.0 FINAL Marlene Guzmán [place] [facility] [place] [facility] , [address] [place] [id number] 0 03/09 CBC w/ auto diff NRBC % #/100W BC 0.0 0.2 0.0 FINAL Marlene Guzmán [place] [facility] [place] [facility] , [address] [place] [id number] 0 03/09 CBC w/ auto diff RBC M/uL 3.9 5.1 5.08 FINAL Marlene Guzmán [place] [facility] [place] [facility] , [address] [place] [id number] 0 03/09 CBC w/ auto diff HCT % 35.0 48.0 42.9 FINAL Marlene Guzmán [place] [facility] [place] [facility] , [address] [place] [id number] 0 03/09 CBC w/ auto diff MCV fL 80.0 104.0 84.4 FINAL Marlene Guzmán [place] [facility] [place] [facility] , [address] [place] [id number] 0 03/09 CBC w/ auto diff MCH pg 26.0 35.0 28.3 FINAL Marlene Guzmán [place] [facility] [place] [facility] , [address] [place] [id number] 0 03/09 CBC w/ auto diff MCHC g/dL 30.0 35.0 33.6 FINAL Marlene Guzmán [place] [facility] [place] [facility] , [address] [place] [id number] 0 03/09 CBC w/ auto diff MPV fL 9.5 13.4 9.6 FINAL Marlene Guzmán [place] [facility] [place] [facility] , [address] [place] [id number] 0 03/09 CBC w/ auto diff RDW % 11.4 16.1 14.20 FINAL Marlene Guzmán [place] [facility] [place] [facility] , [address] [place] [id number] 0 03/09 Total prote in g/dL 6.3 8.2 7.1 FINAL Marlene Guzmán * [place] [facility] [place] [facility] , [address] [place] [id number] 0 03/09 Album in, SPE g/dL 3.31 5.31 4.70 FINAL Marlene Guzmán * [facility] , [address] [id number] 0 03/09 Alpha -1 globu tony g/dL 0.19 0.42 0.23 FINAL Marlene Guzmán * [facility] , [address] [facility] [id number] 0 03/09 Alpha -2 globu tony g/dL 0.44 1.03 0.52 FINAL Marlene Guzmán * [facility] , [address] [id number] 0 03/09 Beta globu tony g/dL 0.52 1.05 0.80 FINAL Marlene Guzmán * [facility] , [address] [id number] 0 03/09 Gamma globu tony g/dL 0.59 1.46 0.85 FINAL Marlene Guzmán * [facility] , [address] [id number] 0 03/09 Elect Gemma layton in Lab resul t note Previou sly identif ied parapro teins detecte d in gamma region. Is now 0.3 and 0.4 gm/dL. Interpr eted and signed by Luis Guillermo MD on 025 FINAL Marlene Guzmán * [facility] , [address] [facility] [id number] 0 03/09 M-spi ke, SPE, g/dL g/dL 0.0 0.0 0.3 High FINAL Marlene Guzmán * [facility] , [address] [id number] 0 03/09 M-spi ke 2, SPE g/dL 0.0 0.0 0.4 High FINAL Marlene Guzmán * [facility] , [address] [facility] [id number] 0 03/09 Immun oglob ulin measu remen t IgG, quant mg/dL 610.0 1616.0 1080.49 Test performed at [facility] on a Binding Site Optilite Analyzer that uses a turbidime tric method for analysis. Patient testing should not be performed using multiple methodolo gies due to analytica l variation seen between test methodolo gies. FINAL Marlene Ramirez * [facility] , [address] [facility] [id number] 0 03/09 Immun oglob ulin measu remen t IgA, quant mg/dL 61.0 348.0 577.26 High Test performed at [facility] on a Binding Site Optilite Analyzer that uses a turbidime tric method for analysis. Patient testing should not be performed using multiple methodolo gies due to analytica l variation seen between test methodolo gies. FINAL Marlene Ramirez * [facility] , [address] [facility] [id number] 0 03/09 Immun oglob ulin measu remen t IgM, quant mg/dL 35.0 242.0 91.00 Test performed at [facility] on a Binding Site Optilite Analyzer that uses a turbidime tric method for analysis. Patient testing should not be performed using multiple methodolo gies due to analytica l variation seen between test methodolo gies. FINAL Marlene Guzmán * [facility] , [address] [facility] [id number] 0 04/[place] [facility] See attache malave Medications Date [...] 04/10/2025 Pain Scale 7.00 Notes Section * BIOLOGICAL SCIENTIST Follow-Up GYNECOLOGIC ONCOLOGY FOLLOW-UP VISIT Patient Name: JOSE ANGEL HENRY : 1960 Date of Visit: 10/11/2023 Referring Provider: Malissa Hernandez MD (HOME HEALTH CARE PROVIDER) Attending: Marlene Guzmán (Hematology/Oncology) Chief Complaint (Health Education Director Oncology): 6 week post op?? History of Present Illness (Health Education Director Oncology): 63 y.o.?? 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 Genetic Testing (Health Education Director Oncology): Interval History (Health Education Director Oncology) She was transferred from [facility] to [facility] after surgery from 09/03-09/09/23.?? 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 Anxious, , female with somewhat [...] record:05/23/2019 Last record:05/23/2019; ) Assessment & Plan (Health Education Director Oncology): 63?? y.o. 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 Pathology benign. Reviewedpathology, operative findings, expected recovery.?? She is recovering well, no further restrictions.?? She can follow up with PCP/rn gynecology as needed.? Pain Care Management: Pain Scale: 0 Patient Care needs: Depressions Status: Was not screened Reason: Patient Refused; Screening Date: 10/11/2023 Psycho-Social PHQ-9 Follow-up Plan (if applicable): Smoking Status: Smoking Tobacco : Never smoker; Smokeless Tobacco : none found; Vaping : none found ATIYA Williamson Copy to: November Kishore BAEZ FAX Mitra Hernandez MD (Referring) Selena Fatima MD Electronically signed by uJdy RAJPUT 10/11/2023 15:27 HOSPITAL CLEANING SPECIALIST
[2025-07-06 23:34] LABS: Slide Review Reflex No
--- OUTSIDE RECORDS SUMMARY | 2025-07-06 23:34 | XMS_ITS ---
Author Name Interface, [id number] Address [address] [facility] [address] [place] [address] [facility] Oncology Address [address] [facility] [address] [place] [address] Support Name Relationship Address Phone Greg Henry [...] Ordered By Specimen Source Lab Address 11/05 [facility] other lab See computer instructor d 11/08 Mis other lab See computer instructor d 11/22 Color (ua) Yellow FINAL [facility] [place], [address] [facility] [address] [place] [phone] 0 Phone: () - 11/22 Appea ying (ua) Clear FINAL [facility] [place], [address] [facility] [address] [place] [id number] 0 Phone: () - 11/22 Gluco se (ua), qual 500.0% Abnor mal FINAL [facility] [place], [address] [facility] [address] [place] [phone] 0 Phone: () - 11/22 Bilir ubin (ua) Negativ e FINAL [facility] [place], [address] [facility] [address] [place] [phone] 0 Phone: () - 11/22 Urina lysis , aceto ne or keton e chapo s measu remen t Negativ e FINAL [facility] Bud [facility] - [place], [address] [facility] [address] [place] [id number] 0 Phone: () - 11/22 Speci fic gravi ty (ua) 1.005 1.02 1.025% Abnor mal FINAL [facility] [place], [address] [facility] [address] [place] [phone] 0 Phone: () - 11/22 Blood (ua) Negativ e FINAL [facility] [place], [address] [facility] [address] [place] [phone] 0 Phone: () - 11/22 pH (ua) 5.0 8.0 6.0% FINAL [facility] [place], [address] [facility] [address] [place] [id number] 0 Phone: () - 11/22 Prote in (ua) Negativ e FINAL [facility] [place], [address] [place] [address] [address] [place] [phone] 0 Phone: () - 11/22 Urobi linog en (ua) 0.2 1.0 0.2% FINAL [facility] [place], [address] [place] [address] [address] [place] [id number] 0 Phone: () - 11/22 Nitri te (ua) Negativ e FINAL [facility] [place], [address] [facility] [address] [place] [phone] 0 Phone: () - 11/22 Leuko cyte jerson ase (ua), qual Negativ e FINAL [facility] [place], [address] [facility] [address] [place] [phone] 0 Phone: () - 11/22 UA comme nt 1 Dipstic k negativ e- Culture ordered per provide r FINAL [facility] [place] [facility] [place], [address] 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 FINAL Hafsa Farrell [facility], [facility] [address] [employer] [id number] 4 12/18 [facility] other lab See computer instructor d 04/18 Total prote in g/dL 6.3 8.2 6.9 FINAL Marlene Ramirez * [facility], [address] [id number] 0 04/18 Album in, SPE g/dL 3.31 5.31 3.97 FINAL Marlene Guzmán * [facility], [address] [id number] 0 04/18 Alpha -1 globu tony g/dL 0.19 0.42 0.26 FINAL Marlene Guzmán * [facility], [address] [id number] 0 04/18 Alpha -2 globu tony g/dL 0.44 1.03 0.63 FINAL Marlene Guzmán * [facility], [address] [id number] 0 04/18 Beta globu tony g/dL 0.52 1.05 0.95 FINAL Marlene Ramirez * [facility], [address] [id number] 0 04/18 Gamma globu tony g/dL 0.59 1.46 1.10 FINAL Marlene Guzmán * [facility], [address] [id number] 0 04/18 Gemma Rodriguez in Lab resul t note Previou sly identif ied parapro teins detecte d in gamma region. Were 0.3 and 0.4 gm/dL, now 0.3 and 0.3 gm/dL. Interpr eted and signed by Adrienne Swanson MD on 024 FINAL Marlene Guzmán * [facility], [address] [facility] [address] [id number] 0 04/18 M-spi ke, SPE, g/dL g/dL 0.0 0.0 0.3 High FINAL Marlene Guzmán * [facility], [address] [facility] [address] [id number] 0 04/18 M-spi ke 2, SPE g/dL 0.0 0.0 0.3 High FINAL Marleneanabel Guzmán * [facility], [facility] [address] [place] [address] [phone] 0 04/18 Immun oglob ulin measu remen t IgG, quant mg/dL 610.0 1616.0 946.67 Test performed at [facility] on a Binding YR Free Optilite Analyzer that uses a turbidime tric method for analysis. Patient testing should not be performed using multiple methodolo gies due to analytica l variation seen between test methodolo gies. FINAL Marleneanabel Guzmán * [facility] [address] [place] [address] [id number] 0 04/18 Immun oglob ulin measu remen t IgA, quant mg/dL 61.0 348.0 493.08 High Test performed at [facility] on a Binding YR Free Optilite Analyzer that uses a turbidime tric method for analysis. Patient testing should not be performed using multiple methodolo gies due to analytica l variation seen between test methodolo gies. FINAL Marlene Guzmán * [facility], [address] [place] [address] [place] [address] [id number] 0 04/18 Immun oglob ulin measu remen t IgM, quant mg/dL 35.0 242.0 75.62 Test performed at [facility] on a Binding Site Optilite Analyzer that uses a turbidime tric method for analysis. Patient testing should not be performed using multiple methodolo gies due to analytica l variation seen between test methodolo gies. FINAL Marlene Forte a [facility], [facility]0 [facility] [address] [id number] 0 04/18 Free kappa / lambd a with K/L ratio , serum [place] light chain , free, serum , mg/dL mg/dL 0.33 1.94 3.62 High Test performed at [facility] on a Binding Site Optilite Analyzer that uses a turbidime tric method for analysis. Patient testing should not be performed using multiple methodolo gies due to analytica l variation seen between test methodolo gies. FINAL Marlene Rubi a [facility], [address] [facility] [address] [id number] 0 04/18 Free kappa / lambd a with K/L ratio , serum [place] light chain , free, serum , mg/dL mg/dL 0.57 2.63 3.13 High Test performed at [facility] on a Binding YR Free Optilite Analyzer that uses a turbidime tric method for analysis. Patient testing should not be performed using multiple methodolo gies due to analytica l variation seen between test methodolo gies. FINAL Marlene Rubi a [facility], [address] [id number] 0 04/18 Free kappa / lambd a with K/L ratio , serum K/L light chain ratio , free, serum 0.26 1.65 1.16% FINAL Marlene Forteot a [facility], [address] [id number] 0 04/18 CBC w/ auto diff WBC K/uL 3.0 8.9 7.0 FINAL Marlene Rubi On[facility], [address] [facility] [address] [facility] [id number] 0 Phone: () - 04/18 CBC w/ auto diff HGB g/dL 11.3 15.2 14.0 FINAL Marlene [facility] [place], [address] [place] [id number] 0 Phone: () - 04/18 CBC w/ auto diff PLT K/uL 113.0 364.0 164 FINAL Marlene [facility] - [place], [address] [place] [id number] 0 Phone: () - 04/18 CBC w/ auto diff Tammy # (ANC) K/uL 1.6 6.6 4.5 FINAL Marlene pagan [facility] - [place], [address] [place] [id number] 0 Phone: () - 04/18 CBC w/ auto diff Tammy % % 43.0 74.0 64.0 FINAL Marlene pagan [facility] - [place], [address] [place] [id number] 0 Phone: () - 04/18 CBC w/ auto diff IG % % 0.0 0.5 0.3 FINAL Marlene pagan [facility] - [place], [address] [place] [id number] 0 Phone: () - 04/18 CBC w/ auto diff IG # K/uL 0.0 0.03 0.02 FINAL Marlene pagan [facility] - [place], [address] [place] [id number] 0 Phone: () - 04/18 CBC w/ auto diff LY % % 14.0 41.0 28.2 FINAL Marlene Rubi a [facility] - [place], [address] [place] [id number] 0 Phone: () - 04/18 CBC w/ auto diff MO % % 6.0 15.0 6.0 FINAL Marlene Guzmán [facility] - [place], [address] [place] [id number] 0 Phone: () - 04/18 CBC w/ auto diff EO % % 0.0 7.0 1.1 FINAL Marlene [facility] - [place], [address] [place] [id number] 0 Phone: () - 04/18 CBC w/ auto diff BA % % 0.0 2.0 0.4 FINAL Marlene [facility] - [place], [address] [place] [id number] 0 Phone: () - 04/18 CBC w/ auto diff LY # K/uL 0.4 3.6 2.0 FINAL Marlene Guzmán [facility] - [place], [address] [place] [id number] 0 Phone: () - 04/18 CBC w/ auto diff MO # K/uL 0.2 1.3 0.4 FINAL Marlene Ramirez [facility] - [place], [address] [place] [id number] 0 Phone: () - 04/18 CBC w/ auto diff EO # K/uL 0.0 0.6 0.1 FINAL Marlene Ramirez [facility] - [place], [address] [place] [id number] 0 Phone: () - 04/18 CBC w/ auto diff BA # K/uL 0.0 0.2 0.0 FINAL Marlene Ramirez [facility] - [place], [address] [place] [id number] 0 Phone: () - 04/18 CBC w/ auto diff NRBC % #/100W BC 0.0 0.2 0.0 FINAL Marlene Guzmán [facility] - [place], [address] [place] [id number] 0 Phone: () - 04/18 CBC w/ auto diff RBC M/uL 3.9 5.1 4.84 FINAL Marlene Guzmán [facility] - [place], [address] [place] [id number] 0 Phone: () - 04/18 CBC w/ auto diff HCT % 35.0 48.0 40.4 FINAL Marlene Rubi a [facility] - [place], [address] [place] [id number] 0 Phone: () - 04/18 CBC w/ auto diff MCV fL 80.0 104.0 83.5 FINAL Marlene Forteot a [facility] - [place], [address] [place] [id number] 0 Phone: () - 04/18 CBC w/ auto diff MCH pg 26.0 35.0 28.9 FINAL Marlene Rubi a [facility] - [place], [address] [place] [id number] 0 Phone: () - 04/18 CBC w/ auto diff MCHC g/dL 30.0 35.0 34.7 FINAL Marlene Rubi a [facility] - [place], [address] [place] [id number] 0 Phone: () - 04/18 CBC w/ auto diff MPV fL 9.5 13.4 9.7 FINAL Marlene Rubi a [facility] - [place], [address] [place] [id number] 0 Phone: () - 04/18 CBC w/ auto diff RDW % 11.4 16.1 13.80 FINAL Marlene Rubi a [facility] - [place], [address] [place] [id number] 0 Phone: () - 04/18 CMP Album in g/dL 3.5 5.0 4.0 FINAL Marlene Guzmán * [facility] [place], [address] [place] [id number] 0 04/18 CMP Alkal ine phosp hatas e U/L 36.0 125.0 105 FINAL Marlene Guzmán * [facility] [place], [address] [facility] [id number] 0 04/18 CMP ALT/S GPT U/L 0.0 34.0 35 High FINAL Marlene Guzmán * [facility], [address] [facility] [id number] 0 04/18 CMP AST/S GOT U/L 14.0 36.0 44 High FINAL Marlene Guzmán * [facility], [address] [facility] [id number] 0 04/18 CMP BUN mg/dL 7.0 17.0 21.0 High FINAL Marlene Guzmán * [facility], [address] [facility] [id number] 0 04/18 CMP Calci um mg/dL 8.4 10.2 8.8 FINAL Marlene Guzmán * [facility], [address] [facility] [id number] 0 04/18 CMP Chlor nilson mmol/L 96.0 107.0 106 FINAL Marlene Guzmán * [facility], [address] [facility] [id number] 0 04/18 CMP CO2 mmol/L 22.0 30.0 [...] hour stability window. FINAL Marlene Guzmán * [facility], [address] [facility] [id number] 0 04/18 CMP Creat inine mg/dL 0.66 1.25 0.70 FINAL Marlene Guzmán * [facility], [address] [facility] [address] [id number] 0 04/18 CMP GFR estim ate ml/min /1.73m ^2 97.7 GFR is calculate d using the CKD-EPI equation. FINAL Marlene Stroud [facility], [address] [facility] [address] [id number] 0 04/18 CMP Gluco se mg/dL 74.0 100.0 267 High FINAL Marlene Guzmán * [facility], [facility] [address] [id number] 0 04/18 CMP Potas sium mmol/L 3.5 5.1 4.0 FINAL Marlene Guzmán * [facility], [address] [facility] [address] [id number] 0 04/18 CMP Sodiu m mmol/L 137.0 145.0 136 Low FINAL Marlene Guzmán * [facility], [address] [facility] [address] [id number] 0 04/18 CMP Bilir ubin, total mg/dL 0.2 1.3 1.0 FINAL Marlene Guzmán * [facility], [address] [facility] [facility] [address] [id number] 0 04/18 CMP Total prote in g/dL 6.3 8.2 7.3 FINAL Marlene Guzmán * [facility], [address] [facility] [facility] [address] [id number] 0 04/18 [facility] other lab See computer instructor d 12/20 Mis other lab See computer instructor d 12/20 [facility] other lab See computer instructor d 03/09 Free kappa / lambd a with K/L ratio , serum [place] light chain , free, serum , mg/dL mg/dL 0.33 1.94 4.35 High Test performed at [facility] on a Binding Site Optilite Analyzer that uses a turbidime tric method for analysis. Patient testing should not be performed using multiple methodolo gies due to analytica l variation seen between test methodolo gies. FINAL Marlene Guzmán * [facility] , [address] [facility] [place] [address] [facility] [id number] 0 03/09 Free kappa / lambd a with K/L ratio , serum [place] light chain , free, serum , mg/dL mg/dL 0.57 2.63 3.83 High Test performed at [facility] on a Binding Site Optilite Analyzer that uses a turbidime tric method for analysis. Patient testing should not be performed using multiple methodolo gies due to analytica l variation seen between test methodolo gies. FINAL Marlene Guzmán * [facility] , [address] [facility] [address] [id number] 0 03/09 Free kappa / lambd a with K/L ratio , serum K/L light chain ratio , free, serum 0.26 1.65 1.14% FINAL Marlene Guzmán * [facility] , [address] [facility] [address] [id number] 0 03/09 CMP Album in g/dL 3.5 5.0 3.8 FINAL Marlene Guzmán * [facility] , [address] [facility] [address] [id number] 0 03/09 CMP Alkal ine phosp hatas e U/L 36.0 125.0 106 FINAL Marlene Guzmán * [facility] , [address] [facility] [place] [address] [facility] [id number] 0 03/09 CMP ALT/S GPT U/L 0.0 34.0 37 High FINAL Marlene Guzmán * [facility] , [address] [facility] [id number] 0 03/09 CMP AST/S GOT U/L 14.0 36.0 36 FINAL Marlene Guzmán * [facility] , [address] [facility] [id number] 0 03/09 CMP BUN mg/dL 7.0 17.0 18.0 High FINAL Marlene Guzmán * [facility] , [address] [facility] [id number] 0 03/09 CMP Calci um mg/dL 8.4 10.2 8.9 FINAL Marlene Guzmán * [facility] , [address] [facility] [id number] 0 03/09 CMP Chlor nilson mmol/L 96.0 107.0 99 FINAL Marlene Guzmán * [facility] , [address] [facility] [id number] 0 03/09 CMP CO2 mmol/L 22.0 30.0 [...] hour stability window. FINAL Marleneanabel Guzmán * [facility] , [address] [facility] [id number] 0 03/09 CMP Creat inine mg/dL 0.66 1.25 0.70 FINAL Marlene Guzmán * [facility] , [address] [facility] [id number] 0 03/09 CMP GFR estim ate ml/min /1.73m ^2 97.1 GFR is calculate d using the CKD-EPI equation. FINAL Marlene Ramirez * [facility] , [address] [facility] [id number] 0 03/09 CMP Gluco se mg/dL 74.0 100.0 363 Criti sami High FINAL Marlene Ramirez * [facility] , [address] [facility] [id number] 0 03/09 CMP Potas sium mmol/L 3.5 5.1 3.9 FINAL Marlene Ramirez * [facility] , [address] [facility] [id number] 0 03/09 CMP Sodiu m mmol/L 137.0 145.0 134 Low FINAL Marlene Ramirez * [facility] , [address] [facility] [id number] 0 03/09 CMP Bilir ubin, total mg/dL 0.2 1.3 1.1 FINAL Marlene Ramirez * [facility] , [address] [facility] [id number] 0 03/09 CMP Total prote in g/dL 6.3 8.2 7.3 FINAL Marlene Guzmán * [facility] , [address] [facility] [id number] 0 03/09 CBC w/ auto diff WBC K/uL 3.0 8.9 7.1 FINAL Marlene Guzmán [place] [facility] [place] [facility] , [address] [place] [id number] 0 03/09 CBC w/ auto diff HGB g/dL 11.3 15.2 14.4 FINAL Marlene Guzmán [place] [facility] [place] [facility] , [address] [place] [id number] 0 03/09 CBC w/ auto diff PLT K/uL 113.0 364.0 179 FINAL Marlene Guzmán [place] [facility] [place] [facility] , [address] [place] [id number] 0 03/09 CBC w/ auto diff Tammy # (ANC) K/uL 1.6 6.6 4.7 FINAL Marlene Guzmán [place] [facility] [place] [facility] , [address] [place] [id number] 0 03/09 CBC w/ auto diff Tammy % % 43.0 74.0 65.7 FINAL Marlene Guzmán [place] [facility] [place] [facility] , [address] [place] [id number] 0 03/09 CBC w/ auto diff IG % % 0.0 0.5 0.6 High FINAL Marlene Guzmán [place] [facility] , [address] [place] [id number] 0 03/09 CBC w/ auto diff IG # K/uL 0.0 0.03 0.04 High FINAL Marlene Guzmán [place] [facility] [place] [facility] , [address] [place] [id number] 0 03/09 CBC w/ auto diff LY % % 14.0 41.0 25.8 FINAL Marlene Guzmán [place] [facility] [place] [facility] , [address] [place] [id number] 0 03/09 CBC w/ auto diff MO % % 6.0 15.0 6.2 FINAL Marlene Guzmán [place] [facility] [place] [facility] , [address] [place] [id number] 0 03/09 CBC w/ auto diff EO % % 0.0 7.0 1.1 FINAL Marlene Guzmán [place] [facility] [place] [facility] , [address] [place] [id number] 0 03/09 CBC w/ auto diff BA % % 0.0 2.0 0.6 FINAL Marlene Guzmán [place] [facility] [place] [facility] , [address] [place] [id number] 0 03/09 CBC w/ auto diff LY # K/uL 0.4 3.6 1.8 FINAL Marlene Guzmán [place] [facility] [place] [facility] , [address] [place] [id number] 0 03/09 CBC w/ auto diff MO # K/uL 0.2 1.3 0.4 FINAL Marlene Guzmán [place] [facility] [place] [facility] , [address] [place] [id number] 0 03/09 CBC w/ auto diff EO # K/uL 0.0 0.6 0.1 FINAL Marlene Guzmán [place] [facility] [place] [facility] , [address] [place] [id number] 0 03/09 CBC w/ auto diff BA # K/uL 0.0 0.2 0.0 FINAL Marlene Guzmán [place] [facility] [place] [facility] , [address] [place] [id number] 0 03/09 CBC w/ auto diff NRBC % #/100W BC 0.0 0.2 0.0 FINAL Marlene Guzmán [place] [facility] [place] [facility] , [address] [place] [id number] 0 03/09 CBC w/ auto diff RBC M/uL 3.9 5.1 5.08 FINAL Marlene Guzmán [place] [facility] [place] [facility] , [address] [place] [id number] 0 03/09 CBC w/ auto diff HCT % 35.0 48.0 42.9 FINAL Marlene Guzmán [place] [facility] , [address] [place] [id number] 0 03/09 CBC w/ auto diff MCV fL 80.0 104.0 84.4 FINAL Marlene Guzmán [place] [facility] [place] [facility] , [address] [place] [id number] 0 03/09 CBC w/ auto diff MCH pg 26.0 35.0 28.3 FINAL Marlene Guzmán [place] [facility] [place] [facility] , [address] [place] [id number] 0 03/09 CBC w/ auto diff MCHC g/dL 30.0 35.0 33.6 FINAL Marlene Guzmán [place] [facility] , [address] [place] [id number] 0 03/09 CBC w/ auto diff MPV fL 9.5 13.4 9.6 FINAL Marlene Guzmán [place] [facility] [place] [facility] , [address] [place] [id number] 0 03/09 CBC w/ auto diff RDW % 11.4 16.1 14.20 FINAL Marlene Guzmán [place] [facility] [place] [facility] , [address] [place] [id number] 0 03/09 Total prote in g/dL 6.3 8.2 7.1 FINAL Marlene Guzmán * [place] [facility] [place] [facility] , [address] [place] [id number] 0 03/09 Album in, SPE g/dL 3.31 5.31 4.70 FINAL Marlene Guzmán * [facility] , [address] [facility] [address] [id number] 0 03/09 Alpha -1 globu tony g/dL 0.19 0.42 0.23 FINAL Marlene Guzmán * [facility] , [address] [facility] [facility] [address] [facility] [id number] 0 03/09 Alpha -2 globu tony g/dL 0.44 1.03 0.52 FINAL Marlene Guzmán * [facility] , [address] [facility] [facility] [address] [id number] 0 03/09 Beta globu tony g/dL 0.52 1.05 0.80 FINAL Marlene Guzmán * [facility] , [address] [facility] [id number] 0 03/09 Gamma globu tony g/dL 0.59 1.46 0.85 FINAL Marlene Guzmán * [facility] , [address] [facility] [facility] [address] [id number] 0 03/09 Elect Gemma layton in Lab resul t note Previou sly identif ied parapro teins detecte d in gamma region. Is now 0.3 and 0.4 gm/dL. Interpr eted and signed by Luis Guillermo MD on 025 FINAL Marlene Guzmán * [facility] , [address] [facility] [facility] [address] [facility] [id number] 0 03/09 M-spi ke, SPE, g/dL g/dL 0.0 0.0 0.3 High FINAL Marlene Guzmán * [facility] , [address] [facility] [address] [id number] 0 03/09 M-spi ke 2, SPE g/dL 0.0 0.0 0.4 High FINAL Marlene Guzmán * [facility] , [address] [facility] [id number] 0 03/09 Immun oglob ulin measu remen t IgG, quant mg/dL 610.0 1616.0 1080.49 Test performed at [facility] on a Binding Site Optilite Analyzer that uses a turbidime tric method for analysis. Patient testing should not be performed using multiple methodolo gies due to analytica l variation seen between test methodolo gies. FINAL Marlene Ramirez * [facility] , [address] [facility] [id number] 0 03/09 Immun oglob ulin measu remen t IgA, quant mg/dL 61.0 348.0 577.26 High Test performed at [facility] on a Binding Site Optilite Analyzer that uses a turbidime tric method for analysis. Patient testing should not be performed using multiple methodolo gies due to analytica l variation seen between test methodolo gies. FINAL Marlene Ramirez * [facility] , [address] [facility] [id number] 0 03/09 Immun oglob ulin measu remen t IgM, quant mg/dL 35.0 242.0 91.00 Test performed at [facility] on a Binding Site Optilite Analyzer that uses a turbidime tric method for analysis. Patient testing should not be performed using multiple methodolo gies due to analytica l variation seen between test methodolo gies. FINAL Marlene Guzmán * [facility] , [address] [facility] [id number] 0 04/03 [facility] other lab See [...] 04/10/2025 Pain Scale 7.00 Notes Section * [employer] Follow-Up GYNECOLOGIC ONCOLOGY FOLLOW-UP VISIT Patient Name: JOSE ANGEL HENRY : 1960 Date of Visit: 10/11/2023 Referring Provider: Malissa Hernandez MD ([employer]) Attending: Marlene Guzmán (Hematology/Oncology) Chief Complaint ([employer]): 6 week post op?? History of Present Illness ([employer]): 63 y.o.?? 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 Genetic Testing ([employer]): Interval History ([employer]) She was transferred from [facility] to [facility] after surgery from 09/03-09/09/23.?? 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 Anxious, , female with somewhat [...] record:05/23/2019 Last record:05/23/2019; ) Assessment & Plan ([employer]): 63?? y.o. 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 Pathology benign. Reviewedpathology, operative findings, expected recovery.?? She is recovering well, no further restrictions.?? 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 Pain Care Management: Pain Scale: [...] Electronically signed by Judy RAJPUT 10/11/2023 15:27 [facility]
--- OUTSIDE RECORDS SUMMARY | 2025-07-06 23:34 | XMS_ITS ---
Author Name Interface, [id number] lity Address [address] [facility] [address] [place] [address] [facility] Address [address] [facility] [address] [place] [address] Support Name Relationship Address Phone Greg Henry [...] [facility] other lab See editor newspaper d 11/08 Mis other lab See editor newspaper d 11/22 Color (ua) Yellow FINAL [facility] [place], [address] [facility] [address] [place] [phone] Phone: () - 11/22 Appea ying (ua) Clear FINAL [facility] [place], [address] [facility] [address] [place] [phone] 0 Phone: () - 11/22 Gluco se (ua), qual 500.0% Abnor mal FINAL [facility] [place], [address] [facility] [address] [place] [phone] 0 Phone: () - 11/22 Bilir ubin (ua) Negativ e FINAL [facility] [place], [address] [facility] [address] [place] [phone] 0 Phone: () - 11/22 Urina lysis , aceto ne or keton e chapo s measu remen t Negativ e FINAL [facility] [place], [address] [facility] [address] [place] [id number] 0 Phone: () - 11/22 Speci fic gravi ty (ua) 1.005 1.02 1.025% Abnor mal FINAL [facility] [place], [address] [facility] [address] [place] [phone] 0 Phone: () - 11/22 Blood (ua) Negativ e FINAL [facility]fasa [facility] [facility] [place], [address] [facility] [address] [place] [phone] 0 Phone: () - 11/22 pH (ua) 5.0 8.0 6.0% FINAL [facility]sa [facility] [facility] [place], [address] [facility] [address] [place] [phone] 0 Phone: () - 11/22 Prote in (ua) Negativ e FINAL [facility] [place], [address] [place] [address] [address] [place] [phone] 0 Phone: () - 11/22 Urobi linog en (ua) 0.2 1.0 0.2% FINAL [facility] [place], [address] [place] [address] [address] [place] [phone] 0 Phone: () - 11/22 Nitri te (ua) Negativ e FINAL [facility] [place], [address] [facility] [address] [place] [phone] 0 Phone: () - 11/22 Leuko cyte jerson ase (ua), qual Negativ e FINAL [facility] [place], [address] [facility] [address] [place] [phone] 0 Phone: () - 11/22 UA comme nt 1 Dipstic k negativ e- Culture ordered per provide r FINAL [facility] [place] [facility] [place], [address] [facility] [address] [facility] [phone] 0 Phone: () - 11/22 Urine cultu re panel CULTU RE, URINE , ROUTI NE SEE NOTE Abnor mal CULTURE, URINE, ROUTINEMi scroll assembler Number: [id number] est Status: FinalSpec imen Source: UrineSpec imen [...] f. FINAL Hafsa Farrell [facility] [address] [facility] [id number] 12/18 [facility] other lab See editor newspaper d 04/18 Total prote in g/dL 6.3 8.2 6.9 FINAL Marlene Ramirez * [facility], [address] [id number] 0 04/18 Album in, SPE g/dL 3.31 5.31 3.97 FINAL Marlene Guzmán * [facility], [address] [id number] 0 04/18 Alpha -1 globu tony g/dL 0.19 0.42 0.26 FINAL Marlene Guzmán * [facility], [address] [id number] 0 04/18 Alpha -2 globu tony g/dL 0.44 1.03 0.63 FINAL Marlene Guzmán * [facility], [address] [id number] 0 04/18 Beta globu tony g/dL 0.52 1.05 0.95 FINAL Marlene Ramirez * [facility], [address] [id number] 0 04/18 Gamma globu tony g/dL 0.59 1.46 1.10 FINAL Marlene Guzmán * [facility], [address] [id number] 0 04/18 Gemma Rodriguez in Lab resul t note Previou sly identif ied parapro teins detecte d in gamma region. Were 0.3 and 0.4 gm/dL, now 0.3 and 0.3 gm/dL. Interpr eted and signed by Adrienne Swanson MD on 024 FINAL Marlene Guzmán * [facility], [address] [facility] [address] [id number] 0 04/18 M-spi ke, SPE, g/dL g/dL 0.0 0.0 0.3 High FINAL Marlene Guzmán * [facility], [address] [facility] [address] [id number] 04/18 M-spi ke 2, SPE g/dL 0.0 0.0 0.3 High FINAL Marleneanabel Guzmán * [facility], [facility]0 [facility] [address] [place] [address] [id number] 0 04/18 Immun oglob ulin measu remen t IgG, quant mg/dL 610.0 1616.0 946.67 Test performed at [facility] on a Binding [employer]centrator Optilite Analyzer that uses a turbidime tric method for analysis. Patient testing should not be performed using multiple methodolo gies due to analytica l variation seen between test methodolo gies. FINAL Marleneanabel Guzmán * [facility], [facility] [address] [place] [address] [id number] 0 04/18 Immun oglob ulin measu remen t IgA, quant mg/dL 61.0 348.0 493.08 High Test performed at [facility] on a Binding [employer] Concentrator Optilite Analyzer that uses a turbidime tric method for analysis. Patient testing should not be performed using multiple methodolo gies due to analytica l variation seen between test methodolo gies. FINAL Marlene Guzmán * [facility], [address] [place] [address] [place] [address] [id number] 0 04/18 Immun oglob ulin measu remen t IgM, quant mg/dL 35.0 242.0 75.62 Test performed at [facility] on a Binding Site Optilite Analyzer that uses a turbidime tric method for analysis. Patient testing should not be performed using multiple methodolo gies due to analytica l variation seen between test methodolo gies. FINAL Marlene Forte [facility], [facility]0 [facility] [address] [id number] 0 04/18 Free kappa / lambd a with K/L ratio , serum Beemer light chain , free, serum , mg/dL mg/dL 0.33 1.94 3.62 High Test performed at [facility] on a Binding Site Optilite Analyzer that uses a turbidime tric method for analysis. Patient testing should not be performed using multiple methodolo gies due to analytica l variation seen between test methodolo gies. FINAL Marlene Rubi a [facility], [address] [facility] [address] [id number] 0 04/18 Free kappa / lambd a with K/L ratio , serum Lambd a light chain , free, serum , mg/dL mg/dL 0.57 2.63 3.13 High Test performed at [facility] on a Binding [employer] Concentrator Optilite Analyzer that uses a turbidime tric method for analysis. Patient testing should not be performed using multiple methodolo gies due to analytica l variation seen between test methodolo gies. FINAL Marlene Rubi a [facility], [address] [id number] 0 04/18 Free kappa / lambd a with K/L ratio , serum K/L light chain ratio , free, serum 0.26 1.65 1.16% FINAL Marlene [facility], [address] [id number] 0 04/18 CBC w/ auto diff WBC K/uL 3.0 8.9 7.0 FINAL Marlene Rubi Oncology [facility], [address] [facility] [address] [facility] [id number] 0 Phone: () - 04/18 CBC w/ auto diff HGB g/dL 11.3 15.2 14.0 FINAL Marlene [facility] [place], [address] [place] [id number] 0 Phone: () - 04/18 CBC w/ auto diff PLT K/uL 113.0 364.0 164 FINAL Marlene [facility] [place], [address] [place] [id number] 0 Phone: () - 04/18 CBC w/ auto diff Tammy # (ANC) K/uL 1.6 6.6 4.5 FINAL Marlene [facility] - [place], [address] [place] [id number] 0 Phone: () - 04/18 CBC w/ auto diff Tammy % % 43.0 74.0 64.0 FINAL Marlene [facility] - [place], [address] [place] [id number] 0 Phone: () - 04/18 CBC w/ auto diff IG % % 0.0 0.5 0.3 FINAL Marlene [facility] - [place], [address] [place] [id number] 0 Phone: () - 04/18 CBC w/ auto diff IG # K/uL 0.0 0.03 0.02 FINAL Marlene [facility] - [place], [address] [place] [id number] 0 Phone: () - 04/18 CBC w/ auto diff LY % % 14.0 41.0 28.2 FINAL Marlene Rubi a [facility] - [place], [address] [place] [id number] 0 Phone: () - 04/18 CBC w/ auto diff MO % % 6.0 15.0 6.0 FINAL Marlene Guzmán [facility] - [place], [address] [place] [id number] 0 Phone: () - 04/18 CBC w/ auto diff EO % % 0.0 7.0 1.1 FINAL Marlene [facility] - [place], [address] [place] [id number] 0 Phone: () - 04/18 CBC w/ auto diff BA % % 0.0 2.0 0.4 FINAL Marlene [facility] - [place], [address] [place] [id number] 0 Phone: () - 04/18 CBC w/ auto diff LY # K/uL 0.4 3.6 2.0 FINAL Marlene Guzmán [facility] - [place], [address] [place] [id number] 0 Phone: () - 04/18 CBC w/ auto diff MO # K/uL 0.2 1.3 0.4 FINAL Marlene Ramirez [facility] [place], [address] [place] [id number] 0 Phone: () - 04/18 CBC w/ auto diff EO # K/uL 0.0 0.6 0.1 FINAL Marlene Ramirez [facility] [place], [address] [place] [id number] 0 Phone: () - 04/18 CBC w/ auto diff BA # K/uL 0.0 0.2 0.0 FINAL Marlene Ramirez [facility] [place], [address] [place] [id number] 0 Phone: () - 04/18 CBC w/ auto diff NRBC % #/100W BC 0.0 0.2 0.0 FINAL Marlene Guzmán [facility] - [place], [address] [place] [id number] 0 Phone: () - 04/18 CBC w/ auto diff RBC M/uL 3.9 5.1 4.84 FINAL Marlene Guzmán [facility] - [place], [address] [place] [id number] 0 Phone: () - 04/18 CBC w/ auto diff HCT % 35.0 48.0 40.4 FINAL Marlene Rubi a [facility] - [place], [address] [place] [id number] 0 Phone: () - 04/18 CBC w/ auto diff MCV fL 80.0 104.0 83.5 FINAL Marlene [facility] - [place], [address] [place] [id number] 0 Phone: () - 04/18 CBC w/ auto diff MCH pg 26.0 35.0 28.9 FINAL Marlene Rubi a [facility] - [place], [address] [place] [id number] 0 Phone: () - 04/18 CBC w/ auto diff MCHC g/dL 30.0 35.0 34.7 FINAL Marlene Rubi a [facility] - [place], [address] [place] [id number] 0 Phone: () - 04/18 CBC w/ auto diff MPV fL 9.5 13.4 9.7 FINAL Marlene Rubi a [facility] - [place], [address] [place] [id number] 0 Phone: () - 04/18 CBC w/ auto diff RDW % 11.4 16.1 13.80 FINAL Marlene Rubi a [facility] - [place], [address] [place] [id number] 0 Phone: () - 04/18 CMP Album in g/dL 3.5 5.0 4.0 FINAL Marlene Guzmán * [facility] [place], [address] [place] [id number] 0 04/18 CMP Alkal ine phosp hatas e U/L 36.0 125.0 105 FINAL Marlene Guzmán * [facility] [place], [address] [facility] [id number] 0 04/18 CMP ALT/S GPT U/L 0.0 34.0 35 High FINAL Marlene Guzmán * [facility], [address] [facility] [id number] 0 04/18 CMP AST/S GOT U/L 14.0 36.0 44 High FINAL Marlene Guzmán * [facility], [address] [facility] [id number] 0 04/18 CMP BUN mg/dL 7.0 17.0 21.0 High FINAL Marlene Guzmán * [facility], [address] [facility] [id number] 0 04/18 CMP Calci um mg/dL 8.4 10.2 8.8 FINAL Marlene Guzmán * [facility], [address] [facility] [id number] 0 04/18 CMP Chlor nilson mmol/L 96.0 107.0 106 FINAL Marlene Guzmán * [facility], [address] [facility] [id number] 0 04/18 CMP CO2 mmol/L 22.0 30.0 [...] hour stability window. FINAL Marlene Guzmán * [facility], [address] [facility] [id number] 0 04/18 CMP Creat inine mg/dL 0.66 1.25 0.70 FINAL Marlene Guzmán * [facility], [address] [facility] [address] [id number] 0 04/18 CMP GFR estim ate ml/min /1.73m ^2 97.7 GFR is calculate d using the CKD-EPI equation. FINAL Marlene Stroud [facility], [address] [facility] [address] [id number] 0 04/18 CMP Gluco se mg/dL 74.0 100.0 267 High FINAL Marlene Guzmán * [facility], [facility]0 [facility] [address] [id number] 0 04/18 CMP Potas sium mmol/L 3.5 5.1 4.0 FINAL Marlene Guzmán * [facility], [address] [facility] [address] [id number] 0 04/18 CMP Sodiu m mmol/L 137.0 145.0 136 Low FINAL Marlene Guzmán * [facility], [address] [facility] [facility] [address] [id number] 0 04/18 CMP Bilir ubin, total mg/dL 0.2 1.3 1.0 FINAL Marlene Guzmán * [facility], [address] [facility] [address] [id number] 0 04/18 CMP Total prote in g/dL 6.3 8.2 7.3 FINAL Marlene Guzmán * [facility], [address] [facility] [facility] [address] [id number] 0 04/18 [facility] other lab See editor newspaper d 12/20 Mis other lab See editor newspaper d 12/20 [facility] other lab See editor newspaper d 03/09 Free kappa / lambd a with K/L ratio , serum Beemer light chain , free, serum , mg/dL mg/dL 0.33 1.94 4.35 High Test performed at [facility] on a Binding Site Optilite Analyzer that uses a turbidime tric method for analysis. Patient testing should not be performed using multiple methodolo gies due to analytica l variation seen between test methodolo gies. FINAL Marlene Guzmán * [facility] , [address] [facility] [address] [facility] [id number] 0 03/09 Free kappa / lambd a [...] test methodolo gies. FINAL Marlene Guzmán * [facility] , [address] [facility] [address] [id number] 0 03/09 Free kappa / lambd a with K/L ratio , serum K/L light chain ratio , free, serum 0.26 1.65 1.14% FINAL Marlene Guzmán * [facility] , [address] [facility] [address] [id number] 0 03/09 CMP Album in g/dL 3.5 5.0 3.8 FINAL Marlene Guzmán * [facility] , [address] [facility] [address] [id number] 0 03/09 CMP Alkal ine phosp hatas e U/L 36.0 125.0 106 FINAL Marlene Guzmán * [facility] , [address] [facility] [address] [facility] [id number] 0 03/09 CMP ALT/S GPT U/L 0.0 34.0 37 High FINAL Marlene Guzmán * [facility] , [address] [facility] [id number] 0 03/09 CMP AST/S GOT U/L 14.0 36.0 36 FINAL Marlene Guzmán * [facility] , [address] [facility] [id number] 0 03/09 CMP BUN mg/dL 7.0 17.0 18.0 High FINAL Mralene Guzmán * [facility] , [address] [facility] [id number] 0 03/09 CMP Calci um mg/dL 8.4 10.2 8.9 FINAL Marlene Guzmán * [facility] , [address] [facility] [id number] 0 03/09 CMP Chlor nilson mmol/L 96.0 107.0 99 FINAL Marlene Guzmán * [facility] , [address] [facility] [id number] 0 03/09 CMP CO2 mmol/L 22.0 30.0 [...] hour stability window. FINAL Marleneanabel Guzmán * [facility] , [address] [facility] [id number] 0 03/09 CMP Creat inine mg/dL 0.66 1.25 0.70 FINAL Marlene Guzmán * [facility] , [address] [facility] [id number] 0 03/09 CMP GFR estim ate ml/min /1.73m ^2 97.1 GFR is calculate d using the CKD-EPI equation. FINAL Marlene Ramirez * [facility] , [address] [facility] [id number] 0 03/09 CMP Gluco se mg/dL 74.0 100.0 363 Criti sami High FINAL Marlene Ramirez * [facility] , [address] [facility] [id number] 0 03/09 CMP Potas sium mmol/L 3.5 5.1 3.9 FINAL Marlene Ramirez * [facility] , [address] [facility] [id number] 0 03/09 CMP Sodiu m mmol/L 137.0 145.0 134 Low FINAL Marlene Ramirez * [facility] , [address] [facility] [id number] 0 03/09 CMP Bilir ubin, total mg/dL 0.2 1.3 1.1 FINAL Marlene Ramirez * [facility] , [address] [facility] [id number] 0 03/09 CMP Total prote in g/dL 6.3 8.2 7.3 FINAL Marlene Guzmán * [facility] , [address] [facility] [id number] 0 03/09 CBC w/ auto diff WBC K/uL 3.0 8.9 7.1 FINAL Marlene Guzmán [place] [facility] [place] [facility] , [address] [place] [id number] 0 03/09 CBC w/ auto diff HGB g/dL 11.3 15.2 14.4 FINAL Marlene Guzmán [place] [facility] [place] [facility] , [address] [place] [id number] 0 03/09 CBC w/ auto diff PLT K/uL 113.0 364.0 179 FINAL Marlene Guzmán [place] [facility] [place] [facility] , [address] [place] [id number] 0 03/09 CBC w/ auto diff Tammy # (ANC) K/uL 1.6 6.6 4.7 FINAL Marlene Guzmán [place] [facility] [place] [facility] , [address] [place] [id number] 0 03/09 CBC w/ auto diff Tammy % % 43.0 74.0 65.7 FINAL Marlene Guzmán [place] [facility] [place] [facility] , [address] [place] [id number] 0 03/09 CBC w/ auto diff IG % % 0.0 0.5 0.6 High FINAL Marlene Guzmán [place] [facility] , [address] [place] [id number] 0 03/09 CBC w/ auto diff IG # K/uL 0.0 0.03 0.04 High FINAL Marlene Guzmán [place] [facility] [place] [facility] , [address] [place] [id number] 0 03/09 CBC w/ auto diff LY % % 14.0 41.0 25.8 FINAL Marlene Guzmán [place] [facility] [place] [facility] , [address] [place] [id number] 0 03/09 CBC w/ auto diff MO % % 6.0 15.0 6.2 FINAL Marlene Guzmán [place] [facility] [place] [facility] , [address] [place] [id number] 0 03/09 CBC w/ auto diff EO % % 0.0 7.0 1.1 FINAL Marlene Guzmán [place] [facility] [place] [facility] , [address] [place] [id number] 0 03/09 CBC w/ auto diff BA % % 0.0 2.0 0.6 FINAL Marlene Guzmán [place] [facility] [place] [facility] , [address] [place] [id number] 0 03/09 CBC w/ auto diff LY # K/uL 0.4 3.6 1.8 FINAL Marlene Guzmán [place] [facility] [place] [facility] , [address] [place] [id number] 0 03/09 CBC w/ auto diff MO # K/uL 0.2 1.3 0.4 FINAL Marlene Guzmán [place] [facility] [place] [facility] , [address] [place] [id number] 0 03/09 CBC w/ auto diff EO # K/uL 0.0 0.6 0.1 FINAL Marlene Guzmán [place] [facility] [place] [facility] , [address] [place] [id number] 0 03/09 CBC w/ auto diff BA # K/uL 0.0 0.2 0.0 FINAL Marlene Guzmán [place] [facility] [place] [facility] , [address] [place] [id number] 0 03/09 CBC w/ auto diff NRBC % #/100W BC 0.0 0.2 0.0 FINAL Marlene Guzmán [place] [facility] [place] [facility] , [address] [place] [id number] 0 03/09 CBC w/ auto diff RBC M/uL 3.9 5.1 5.08 FINAL Marlene Guzmán [place] [facility] [place] [facility] , [address] [place] [id number] 0 03/09 CBC w/ auto diff HCT % 35.0 48.0 42.9 FINAL Marlene Guzmán [place] [facility] [place] [facility] , [address] [place] [id number] 0 03/09 CBC w/ auto diff MCV fL 80.0 104.0 84.4 FINAL Marlene Guzmán [place] [facility] [place] [facility] , [address] [place] [id number] 0 03/09 CBC w/ auto diff MCH pg 26.0 35.0 28.3 FINAL Marlene Guzmán [place] [facility] [place] [facility] , [address] [place] [id number] 0 03/09 CBC w/ auto diff MCHC g/dL 30.0 35.0 33.6 FINAL Marlene Guzmán [place] [facility] , [address] [place] [id number] 0 03/09 CBC w/ auto diff MPV fL 9.5 13.4 9.6 FINAL Marlene Guzmán [place] [facility] [place] [facility] , [address] [place] [id number] 0 03/09 CBC w/ auto diff RDW % 11.4 16.1 14.20 FINAL Marlene Guzmán [place] [facility] [place] [facility] , [address] [place] [id number] 0 03/09 Total prote in g/dL 6.3 8.2 7.1 FINAL Marlene Guzmán * [place] [facility] [place] [facility] , [address] [place] [id number] 0 03/09 Album in, SPE g/dL 3.31 5.31 4.70 FINAL Marlene Guzmán * [facility] , [address] [id number] 0 03/09 Alpha -1 globu tony g/dL 0.19 0.42 0.23 FINAL Marlene Guzmán * [facility] , [address] [facility] [id number] 0 03/09 Alpha -2 globu tony g/dL 0.44 1.03 0.52 FINAL Marlene Guzmán * [facility] , [address] [id number] 0 03/09 Beta globu tony g/dL 0.52 1.05 0.80 FINAL Marlene Guzmán * [facility] , [address] [id number] 0 03/09 Gamma globu tony g/dL 0.59 1.46 0.85 FINAL Marlene Guzmán * [facility] , [address] [id number] 0 03/09 Elect Gemma layton in Lab resul t note Previou sly identif ied parapro teins detecte d in gamma region. Is now 0.3 and 0.4 gm/dL. Interpr eted and signed by Luis Guillermo MD on 025 FINAL Marlene Guzmán * [facility] , [address] [facility] [id number] 0 03/09 M-spi ke, SPE, g/dL g/dL 0.0 0.0 0.3 High FINAL Marlene Guzmán * [facility] , [address] [id number] 0 03/09 M-spi ke 2, SPE g/dL 0.0 0.0 0.4 High FINAL Marlene Guzmán * [facility] , [address] [facility] [id number] 0 03/09 Immun oglob ulin measu remen t IgG, quant mg/dL 610.0 1616.0 1080.49 Test performed at [facility] on a Binding Site [employer]il[employer] Analyzer that uses a turbidime tric method for analysis. Patient testing should not be performed using multiple methodolo gies due to analytica l variation seen between test methodolo gies. FINAL Marlene Ramirez * [facility] , [address] [facility] [id number] 0 03/09 Immun oglob ulin measu remen t IgA, quant mg/dL 61.0 348.0 577.26 High Test performed at [facility] on a Binding Site Optilite Analyzer that uses a turbidime tric method for analysis. Patient testing should not be performed using multiple methodolo gies due to analytica l variation seen between test methodolo gies. FINAL Marlene Ramirez * [facility] , [address] [facility] [id number] 0 03/09 Immun oglob ulin measu remen t IgM, quant mg/dL 35.0 242.0 91.00 Test performed at [facility] on a Binding Site Optilite Analyzer that uses a turbidime tric method for analysis. Patient testing should not be performed using multiple methodolo gies due to analytica l variation seen between test methodolo gies. 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 History of Present Illness ([facility]): 63 y.o.?? 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 Genetic Testing ([facility]): Interval History ([facility]) She was transferred from [facility] to [facility] psychiatric perez after surgery from 09/03-09/09/23.?? 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 Anxious, , female with somewhat [...] record:05/23/2019 Last record:05/23/2019; ) Assessment & Plan ([facility]): 63?? y.o. 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 Pathology benign. Reviewedpathology, operative findings, expected recovery.?? She is recovering well, no further restrictions.?? She can follow up with PCP/police stenographer as needed.? 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
--- OUTSIDE RECORDS SUMMARY | 2025-07-06 23:34 | XMS_ITS ---
Author Name Interface, [id number] lity Address [address] [facility] [address] [place] [address] [facility] Address [address] [facility] [address] [place] [address] Support Name Relationship Address Phone Greg Ch [...] FINAL [facility] [place], [address] [place] [address] 210 [facility] [phone] Phone: () - 11/22 Appea ying (ua) Clear FINAL [facility] [place], [address] [place] [address] 210 [facility] [phone] Phone: () - 11/22 Gluco se (ua), qual 500.0% Abnor mal FINAL [facility] [place], [address] [facility] 210 [facility] [phone] 0 Phone: () - 11/22 Bilir ubin (ua) Negativ e FINAL [facility] [place], [address] [place] [address] 210 [facility] [phone] 0 Phone: () - 11/22 Urina lysis , aceto ne or keton e chapo s measu remen t Negativ e FINAL [facility] [place], [address] [facility] 210 [place] [phone] 0 Phone: () - 11/22 Speci fic gravi ty (ua) 1.005 1.02 1.025% Abnor mal FINAL [facility] [place], [address] [facility] 210 [place] [phone] 0 Phone: () - 11/22 Blood (ua) Negativ e FINAL [facility] [place], [address] [place] [address] 210 [place] [phone] 0 Phone: () - 11/22 pH (ua) 5.0 8.0 6.0% FINAL [facility] [place], [address] [place] [address] 210 [facility] [phone] 0 Phone: () - 11/22 Prote in (ua) Negativ e FINAL [facility] [place], [address] [place] [address] 210 [place] [phone] 0 Phone: () - 11/22 Urobi linog en (ua) 0.2 1.0 0.2% FINAL [facility] [place], [address] [place] [address] 210 [place] [phone] 0 Phone: () - 11/22 Nitri te (ua) Negativ e FINAL [facility] [place], [address] [place] [address] 210 [place] [phone] 0 Phone: () - 11/22 Leuko cyte jerson ase (ua), qual Negativ e FINAL [facility]sa [facility] [place], [address] [place] [address] 210 [place] [phone] Phone: () - 11/22 UA comme nt 1 Dipstic k negativ e- Culture ordered per provide r FINAL H[facility] [place], [address] [place] [address] 210 [place] [phone] 0 Phone: () - 11/22 Urine cultu re panel CULTU RE, URINE , ROUTI NE SEE NOTE Abnor mal CULTURE, URINE, 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 FINAL Hafsa Bud [facility], [facility] [address] [facility] [phone] 4 12/18 [facility] other lab See sunglass clip attacher d 04/18 Total prote in g/dL 6.3 8.2 6.9 FINAL Malrene Guzmán * [facility], [address] [facility] [address] [place] [address] [id number] 04/18 Album in, SPE g/dL 3.31 5.31 3.97 FINAL Marlene Guzmán * [facility], [facility] [address] [place] [address] [id number] 04/18 Alpha -1 globu tony g/dL 0.19 0.42 0.26 FINAL Marlene Guzmán * [facility], [facility] [address] [place] [address] [id number] 04/18 Alpha -2 globu tony g/dL 0.44 1.03 0.63 FINAL Marlene Guzmán * [facility] [address] [place] [address] [id number] 04/18 Beta globu tony g/dL 0.52 1.05 0.95 FINAL Marlene Guzmán * [facility], [address] [facility] [address] [place] [address] [id number] 04/18 Gamma globu tony g/dL 0.59 1.46 1.10 FINAL Marlene Guzmán * [facility], [address] [facility] [address] [place] [address] [id number] 0 04/18 Elect Gemma layton in Lab resul t note Previou sly identif ied parapro teins detecte d in gamma region. Were 0.3 and 0.4 gm/dL, now 0.3 and 0.3 gm/dL. Interpr eted and signed by Adrienne Swanson MD on 024 FINAL Marlene Guzmán * [facility], [facility] [address] [place] [address] [id number] 04/18 M-spi ke, SPE, g/dL g/dL 0.0 0.0 0.3 High FINAL Marleneanabel Guzmán * [facility], [address] [facility] [id number] 0 04/18 M-spi ke 2, SPE g/dL 0.0 0.0 0.3 High FINAL Marlene Guzmán * [facility], [address] [facility] [address] [facility] [id number] 0 04/18 Immun oglob ulin measu remen t IgG, quant mg/dL 610.0 1616.0 946.67 Test performed at [facility] on a Binding Site Optilite Analyzer that uses a turbidime tric method for analysis. Patient testing should not be performed using multiple methodolo gies due to analytica l variation seen between test methodolo gies. FINAL Marlene Guzmán * [facility], [address] [id number] 0 04/18 Immun oglob ulin measu remen t IgA, quant mg/dL 61.0 348.0 493.08 High Test performed at [facility] on a Binding Site Optilite Analyzer that uses a turbidime tric method for analysis. Patient testing should not be performed using multiple methodolo gies due to analytica l variation seen between test methodolo gies. FINAL Marlene Guzmán * [facility], [address] [id number] 0 04/18 Immun oglob ulin measu remen t IgM, quant mg/dL 35.0 242.0 75.62 Test performed at [facility] on a Binding Site Optilite Analyzer that uses a turbidime tric method for analysis. Patient testing should not be performed using multiple methodolo gies due to analytica l variation seen between test methodolo gies. FINAL Marlene Guzmán * [facility], [address] [id number] 0 04/18 Free kappa / lambd a with K/L ratio , serum [place] light chain , free, serum , mg/dL mg/dL 0.33 1.94 3.62 High Test performed at [facility] on a Binding Site Optilite Analyzer that uses a turbidime tric method for analysis. Patient testing should not be performed using multiple methodolo gies due to analytica l variation seen between test methodolo gies. FINAL Marlene Stroud [facility], [address] [id number] 0 04/18 Free kappa / lambd a with K/L ratio , serum Lambd a light chain , free, serum , mg/dL mg/dL 0.57 2.63 3.13 High Test performed at [facility] on a Binding Site Optilite Analyzer that uses a turbidime tric method for analysis. Patient testing should not be performed using multiple methodolo gies due to analytica l variation seen between test methodolo gies. FINAL Marlene [facility], [address] [facility] [address] [id number] 0 04/18 Free kappa / lambd a with K/L ratio , serum K/L light chain ratio , free, serum 0.26 1.65 1.16% FINAL Marlene [facility], [address] [facility] [address] [id number] 0 04/18 CBC w/ auto diff WBC K/uL 3.0 8.9 7.0 FINAL Marlene [facility] [place], [address] [facility] [address] [facility] [id number] 0 Phone: () - 04/18 CBC w/ auto diff HGB g/dL 11.3 15.2 14.0 FINAL Marlene [facility] - [place], [address] [place] [id number] 0 Phone: () - 04/18 CBC w/ auto diff PLT K/uL 113.0 364.0 164 FINAL Marlene [facility]i [facility] - [place], [address] [place] [id number] 0 Phone: () - 04/18 CBC w/ auto diff Tammy # (ANC) K/uL 1.6 6.6 4.5 FINAL Marlene [facility] [place], [address] [place] [id number] 0 Phone: () - 04/18 CBC w/ auto diff Tammy % % 43.0 74.0 64.0 FINAL Marlene Ramirez [facility] [place], [address] [place] [id number] 0 Phone: () - 04/18 CBC w/ auto diff IG % % 0.0 0.5 0.3 FINAL Marlene Ramirez [facility] [place], [address] [place] [id number] 0 Phone: () - 04/18 CBC w/ auto diff IG # K/uL 0.0 0.03 0.02 FINAL Marlene Ramirez [facility] [place], [address] [place] [id number] 0 Phone: () - 04/18 CBC w/ auto diff LY % % 14.0 41.0 28.2 FINAL Marlene Guzmán [facility] [place], [address] [place] [id number] 0 Phone: () - 04/18 CBC w/ auto diff MO % % 6.0 15.0 6.0 FINAL Marlene Guzmán [facility] [place], [address] [place] [id number] 0 Phone: () - 04/18 CBC w/ auto diff EO % % 0.0 7.0 1.1 FINAL Marlene Ramirez [facility] [place], [address] [place] [id number] 0 Phone: () - 04/18 CBC w/ auto diff BA % % 0.0 2.0 0.4 FINAL Marlene [facility] [place], [address] [place] [id number] 0 Phone: () - 04/18 CBC w/ auto diff LY # K/uL 0.4 3.6 2.0 FINAL Marlene [facility] - [place], [address] [place] [id number] 0 Phone: () - 04/18 CBC w/ auto diff MO # K/uL 0.2 1.3 0.4 FINAL Marlene [facility] [place], [address] [place] [id number] 0 Phone: () - 04/18 CBC w/ auto diff EO # K/uL 0.0 0.6 0.1 FINAL Marlene [facility] - [place], [address] [place] [id number] 0 Phone: () - 04/18 CBC w/ auto diff BA # K/uL 0.0 0.2 0.0 FINAL Marlene [facility] - [place], [address] [place] [id number] 0 Phone: () - 04/18 CBC w/ auto diff NRBC % #/100W BC 0.0 0.2 0.0 FINAL Marlene [facility] - [place], [address] [place] [id number] 0 Phone: () - 04/18 CBC w/ auto diff RBC M/uL 3.9 5.1 4.84 FINAL Marlene [facility] [place], [address] [place] [id number] 0 Phone: () - 04/18 CBC w/ auto diff HCT % 35.0 48.0 40.4 FINAL Marlene Guzmán [facility] [place], [address] [place] [id number] 0 Phone: () - 04/18 CBC w/ auto diff MCV fL 80.0 104.0 83.5 FINAL Marlene Guzmán [facility] [place], [address] [place] [id number] 0 Phone: () - 04/18 CBC w/ auto diff MCH pg 26.0 35.0 28.9 FINAL Marlene Guzmán [facility] [place], [address] [place] [id number] 0 Phone: () - 04/18 CBC w/ auto diff MCHC g/dL 30.0 35.0 34.7 FINAL Marlene Guzmán [facility] [place], [address] [place] [id number] 0 Phone: () - 04/18 CBC w/ auto diff MPV fL 9.5 13.4 9.7 FINAL Marlene Guzmán [facility] [place], [address] [place] [id number] 0 Phone: () - 04/18 CBC w/ auto diff RDW % 11.4 16.1 13.80 FINAL Marlene Guzmán [facility] [place], [address] [place] [id number] 0 Phone: () - 04/18 CMP Album in g/dL 3.5 5.0 4.0 FINAL Marlene Guzmán * [facility] [place], [address] [place] [id number] 0 04/18 CMP Alkal ine phosp hatas e U/L 36.0 125.0 105 FINAL Marlene Guzmán * [facility] [place], [address] [place] [id number] 0 04/18 CMP ALT/S GPT U/L 0.0 34.0 35 High FINAL Marlene Guzmán * [facility], [address] [facility] [address] [id number] 0 04/18 CMP AST/S GOT U/L 14.0 36.0 44 High FINAL Marlene Guzmán * [facility], [address] [facility] [address] [id number] 0 04/18 CMP BUN mg/dL 7.0 17.0 21.0 High FINAL Marlene Guzmán * [facility], [address] [facility] [address] [id number] 0 04/18 CMP Calci um mg/dL 8.4 10.2 8.8 FINAL Marlene Guzmán * [facility], [address] [facility] [address] [id number] 0 04/18 CMP Chlor nilson mmol/L 96.0 107.0 106 FINAL Marlene Guzmán * [facility], [address] [facility] [address] [id number] 0 04/18 CMP CO2 mmol/L 22.0 30.0 [...] hour stability window. FINAL Marlene Guzmán * [facility], [address] [facility] [address] [id number] 0 04/18 CMP Creat inine mg/dL 0.66 1.25 0.70 FINAL Marlene Guzmán * [facility], [address] [facility] [id number] 0 04/18 CMP GFR estim ate ml/min /1.73m ^2 97.7 GFR is calculate d using the CKD-EPI equation. FINAL Marlene Guzmán * [facility], [address] [facility] [id number] 0 04/18 CMP Gluco se mg/dL 74.0 100.0 267 High FINAL Marlene Guzmán * [facility], [address] [facility] [id number] 0 04/18 CMP Potas sium mmol/L 3.5 5.1 4.0 FINAL Marlene Guzmán * [facility], [address] [facility] [id number] 0 04/18 CMP Sodiu m mmol/L 137.0 145.0 136 Low FINAL Marlene Guzmán * [facility], [address] [facility] [id number] 0 04/18 CMP Bilir ubin, total mg/dL 0.2 1.3 1.0 FINAL Marlene Guzmán * [facility], [address] [facility] [id number] 0 04/18 CMP Total prote in g/dL 6.3 8.2 7.3 FINAL Marlene Guzmán * [facility], [address] [facility] [id number] 0 04/18 [facility] other lab See sunglass clip attacher d 12/20 [facility] other lab See sunglass clip attacher d 12/20 Misc other lab See sunglass clip attacher d 03/09 Free kappa / lambd a with K/L ratio , serum [place] light chain , free, serum , mg/dL mg/dL 0.33 1.94 4.35 High Test performed at [facility] on a Binding Site Optilite Analyzer that uses a turbidime tric method for analysis. Patient testing should not be performed using multiple methodolo gies due to analytica l variation seen between test methodolo gies. FINAL Marlene Guzmán * [facility] , [address] [facility] [address] [facility] [id number] 0 03/09 Free kappa / lambd a with K/L ratio , serum Lambd a light chain , free, serum , mg/dL mg/dL 0.57 2.63 3.83 High Test performed at [facility] on a Binding Site Optilite Analyzer that uses a turbidime tric method for analysis. Patient testing should not be performed using multiple methodolo gies due to analytica l variation seen between test methodolo gies. FINAL Marlene Guzmán * [facility] , [address] [facility] [address] [id number] 0 03/09 Free kappa / lambd a with K/L ratio , serum K/L light chain ratio , free, serum 0.26 1.65 1.14% FINAL Marlene Guzmán * [facility] , [address] [facility] [address] [id number] 0 03/09 CMP Album in g/dL 3.5 5.0 3.8 FINAL Marlene Guzmán * [facility] , [address] [facility] [address] [id number] 0 03/09 CMP Alkal ine phosp hatas e U/L 36.0 125.0 106 FINAL Marlene Guzmán * [facility] , [address] [facility] [address] [id number] 0 03/09 CMP ALT/S GPT U/L 0.0 34.0 37 High FINAL Marlene Guzmán * [facility] , [address] [facility] [address] [id number] 0 03/09 CMP AST/S GOT U/L 14.0 36.0 36 FINAL Marlene Ramirez * [facility] , [address] [facility] [address] [facility] [id number] 0 03/09 CMP BUN mg/dL 7.0 17.0 18.0 High FINAL Marlene Guzmán * [facility] , [address] [facility] [address] [facility] [id number] 0 03/09 CMP Calci um mg/dL 8.4 10.2 8.9 FINAL Marlene Guzmán * [facility] , [address] [facility] [address] [facility] [id number] 0 03/09 CMP Chlor nilson mmol/L 96.0 107.0 99 FINAL Marlene Guzmán * [facility] , [address] [facility] [address] [facility] [id number] 0 03/09 CMP CO2 mmol/L 22.0 30.0 [...] stability window. FINAL Marlene Guzmán * [facility] , [address] [facility] [address] [facility] [id number] 0 03/09 CMP Creat inine mg/dL 0.66 1.25 0.70 FINAL Marlene Guzmán * [facility] , [address] [facility] [address] [facility] [id number] 0 03/09 CMP GFR estim ate ml/min /1.73m ^2 97.1 GFR is calculate d using the CKD-EPI equation. FINAL Marlene Guzmán * [facility] , [address] [facility] [address] [id number] 0 03/09 CMP Gluco se mg/dL 74.0 100.0 363 Criti sami High FINAL Marlene Guzmán * [facility] , [address] [facility] [address] [facility] [id number] 0 03/09 CMP Potas sium mmol/L 3.5 5.1 3.9 FINAL Marlene Guzmán * [facility] , [address] [facility] [address] [facility] [id number] 0 03/09 CMP Sodiu m mmol/L 137.0 145.0 134 Low FINAL Marlene Guzmán * [facility] , [address] [facility] [address] [facility] [id number] 0 03/09 CMP Bilir ubin, total mg/dL 0.2 1.3 1.1 FINAL Marlene Guzmán * [facility] , [address] [facility] [address] [facility] [id number] 0 03/09 CMP Total prote in g/dL 6.3 8.2 7.3 FINAL Marlene Guzmán * [facility] , [address] [facility] [address] [facility] [id number] 0 03/09 CBC w/ auto diff WBC K/uL 3.0 8.9 7.1 FINAL Marlene Guzmán [place] [facility] [place] [facility] , [address] [place] [id number] 0 03/09 CBC w/ auto diff HGB g/dL 11.3 15.2 14.4 FINAL Marlene Guzmán [place] [facility] [place] [facility] , [address] [place] [id number] 0 03/09 CBC w/ auto diff PLT K/uL 113.0 364.0 179 FINAL Marlene Guzmán [place] [facility] [place] [facility] , [address] [place] [id number] 0 03/09 CBC w/ auto diff Tammy # (ANC) K/uL 1.6 6.6 4.7 FINAL Marlene Guzmán [place] [facility] [place] [facility] , [address] [place] [id number] 0 03/09 CBC w/ auto diff Tammy % % 43.0 74.0 65.7 FINAL Marlene Guzmán [place] [facility] [place] [facility] , [address] [place] [id number] 0 03/09 CBC w/ auto diff IG % % 0.0 0.5 0.6 High FINAL Marlene Guzmán [place] [facility] [place] [facility] , [address] [place] [id number] 0 03/09 CBC w/ auto diff IG # K/uL 0.0 0.03 0.04 High FINAL Marlene Guzmán [place] [facility] [place] [facility] , [address] [place] [id number] 0 03/09 CBC w/ auto diff LY % % 14.0 41.0 25.8 FINAL Marlene Guzmán [place] [facility] [place] [facility] , [address] [place] [id number] 0 03/09 CBC w/ auto diff MO % % 6.0 15.0 6.2 FINAL Marlene Guzmán [place] [facility] [place] [facility] , [address] [place] [id number] 0 03/09 CBC w/ auto diff EO % % 0.0 7.0 1.1 FINAL Marlene Guzmán [place] [facility] [place] [facility] , [address] [place] [id number] 0 03/09 CBC w/ auto diff BA % % 0.0 2.0 0.6 FINAL Marlene Guzmán [place] [facility] [place] [facility] , [address] [place] [id number] 0 03/09 CBC w/ auto diff LY # K/uL 0.4 3.6 1.8 FINAL Marlene Guzmán [place] [facility] [place] [facility] , [address] [place] [id number] 0 03/09 CBC w/ auto diff MO # K/uL 0.2 1.3 0.4 FINAL Marlene Guzmán [place] [facility] [place] [facility] , [address] [place] [id number] 0 03/09 CBC w/ auto diff EO # K/uL 0.0 0.6 0.1 FINAL Marlene Guzmán [place] [facility] [place] [facility] , [address] [place] [id number] 0 03/09 CBC w/ auto diff BA # K/uL 0.0 0.2 0.0 FINAL Marlene Guzmán [place] [facility] [place] [facility] , [address] [place] [id number] 0 03/09 CBC w/ auto diff NRBC % #/100W BC 0.0 0.2 0.0 FINAL Marlene Guzmán [place] [facility] [place] [facility] , [address] [place] [id number] 0 03/09 CBC w/ auto diff RBC M/uL 3.9 5.1 5.08 FINAL Marlene Guzmán [place] [facility] [place] [facility] , [address] [place] [id number] 0 03/09 CBC w/ auto diff HCT % 35.0 48.0 42.9 FINAL Marlene Guzmán [facility] , [address] [place] [facility] [id number] 0 03/09 CBC w/ auto diff MCV fL 80.0 104.0 84.4 FINAL Marlene Guzmán [facility] , [address] [facility] [address] [place] [facility] [id number] 0 03/09 CBC w/ auto diff MCH pg 26.0 35.0 28.3 FINAL Marlene Guzmán [facility] , [address] [facility] [address] [facility] [id number] 0 03/09 CBC w/ auto diff MCHC g/dL 30.0 35.0 33.6 FINAL Marlene Guzmán [facility] , [address] [facility] [address] [facility] [id number] 0 03/09 CBC w/ auto diff MPV fL 9.5 13.4 9.6 FINAL Marlene Guzmán [facility] , [address] [facility] [address] [facility] [id number] 0 03/09 CBC w/ auto diff RDW % 11.4 16.1 14.20 FINAL Marlene Guzmán [facility] , [address] [facility] [address] [facility] [id number] 0 03/09 Immun oglob ulin measu remen t IgG, quant mg/dL 610.0 1616.0 1080.49 Test performed at [facility] on a Binding Site Optilite Analyzer that uses a turbidime tric method for analysis. Patient testing should not be performed using multiple methodreal rocha due to analytica l variation seen between test methodreal rocha. FINAL Marlene Guzmán * [facility] , [address] [facility] [id number] 0 03/09 Immun oglob ulin measu remen t IgA, quant mg/dL 61.0 348.0 577.26 High Test performed at [facility] on a Binding Site Optilite Analyzer that uses a turbidime tric method for analysis. Patient testing should not be performed using multiple methodolo gies due to analytica l variation seen between test methodolo gies. FINAL Marlene Guzmán * [facility] , [facility] [address] [id number] 0 03/09 Immun oglob ulin measu remen t IgM, quant mg/dL 35.0 242.0 91.00 Test performed at [facility] on a Binding Site Optilite Analyzer that uses a turbidime tric method for analysis. Patient testing should not be performed using multiple methodolo gies due to analytica l variation seen between test methodolo gies. FINAL Marlene Guzmán * [facility] , [place] [facility] [address] [id number] 0 03/09 Total prote in g/dL 6.3 8.2 7.1 FINAL Marlene Guzmán * [facility] , [facility] [address] [place] [address] [id number] 03/09 Album in, SPE g/dL 3.31 5.31 4.70 FINAL Marlene Guzmán * [facility] , [facility] [address] [id number] 0 03/09 Alpha -1 globu tony g/dL 0.19 0.42 0.23 FINAL Marlene Guzmán * [facility] , [facility] [address] [id number] 0 03/09 Alpha -2 globu tony g/dL 0.44 1.03 0.52 FINAL Marlene Guzmán * [facility] , [facility] [address] [id number] 0 03/09 Beta globu tony g/dL 0.52 1.05 0.80 FINAL Marlene Guzmán * [facility] , [address] [facility] [address] [id number] 03/09 Gamma globu tony g/dL 0.59 1.46 0.85 FINAL Marlene Guzmán * [facility] , [address] [facility] [address] [id number] 0 03/09 Elect Gemma layton in Lab resul t note Previou sly identif ied parapro teins detecte d in gamma region. Is now 0.3 and 0.4 gm/dL. Interpr eted and signed by Luis Guillermo MD on 025 FINAL Marlene Guzmán * [facility] , [facility] [address] [id number] 03/09 M-spi ke, SPE, g/dL g/dL 0.0 0.0 0.3 High FINAL Marlene Guzmán * [facility] , [address] [facility] [address] [id number] 0 03/09 M-spi ke 2, SPE g/dL 0.0 0.0 0.4 High FINAL Marlene Guzmán * [facility] , [address] [facility] [address] [id number] 04/03 Misc other lab See sunglass clip attacher d Medications Date Name Route Dose [...] 70 04/10/2025 BMI 53.23 Notes 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 History of Present Illness (Quality Compliance Manager Oncology): 63 y.o.?? 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 Genetic Testing (Quality Compliance Manager Oncology): Interval History (Quality Compliance Manager Oncology) She is crying??when I walk [...] Hysteroscopy with myosure, D & C 06/28/23 [facility] History: - 3 , 1 SAb Allergies: [...] 50 mg tablet daily 75 mg * [place] (Hydrocodone-Acetaminophen Oral 5 mg-325 mg) 5-325 mg [...] BSA: 2.37, BMI: 48.36 kg/m2 Physical Exam (Quality Compliance Manager Oncology): General:?? Anxious, , female tearful??throughout [...] record:05/23/2019 Last record:05/23/2019; ) Assessment & Plan (Quality Compliance Manager Oncology): 63?? y.o. with abnormal uterine [...]
--- OUTSIDE RECORDS SUMMARY | 2025-07-06 23:34 | XMS_ITS | Patient Health Record ---
Author Organization [facility] Address [address] [place] [address] Care Team Providers Care [employer] Name Role Phone Jimy Posada Primary Care Provider Unavailab JOSEPH Ocasio Unavailable [phone] AkuaSelena Unavailable Unavailable Allergies Allergen (clinical drug ingredient) Drug/Non Drug Allergy documented on EMR Reaction Allergy Type Onset Date Status cephalexin Cephalexin Unknown Drug Allergy Activ e triamcinolone Kenalog Unknown Drug Allergy Act clark metformin Metformin HCl Unknown Drug Allergy Act clark Metoprolol Succinate Unknown Drug Allergy Active metoprolol Metoprolol Tartrate Unknown Drug Allergy Active risperidone Risperidone Unknown Drug Allergy Act clark tolterodine Tolterodine Tartrate Unknown Drug Allergy Active trimethoprim Trimethoprim Unknown Drug Allergy A ctive vancomycin Vancomycin HCl Unknown Drug Allergy A ctive asenapine Saphris Unknown Drug Allergy Active Sulfa Unknown Drug Allergy Active Reason For Referral No Information Medications Medication SIG (Take, Route, Frequency, Duration) Notes Start Date End Date Status traZODone HCl Active medroxyPROGESTERone Acetate Active Progesterone Active Latuda Active Zeasorb-AF Active LORazepam Active Ativan Active Blink Tears Active Centrum Women Active Cyanocobalamin Activ e Basaglar KwikPen Act clark HYDROcodone-Acetaminophen Active Lisinopril Active Ibuprofen Active Trulicity Active Lantus Active Sertraline HCl Activ e Social History Tobacco Use: Social History Observation Description Date Details (start date - stop date) Never Smoker NA - NA Social History : Social Info Question Answer Notes How often do you consume alcohol? Answer: never Tobacco Use: Social Info Question Answer Notes Tobacco use/smoking Are you a nonsmoker Problems Problem Type SNOMED Code ICD Code Onset Dates Problem Status W/U Status Risk Notes Problem Dizziness (427951999) Dizziness (R42) Active confirmed Problem Stomatitis (48772469) Stomatitis (K12.1) Active confirmed Problem Allergic rhinitis (63239386) Allergic rhinitis, unspecified seasonality, unspecified trigger (J30.9) Active confirmed Problem Abnormal auditory perception (93391956) Distorted hearing, bilateral (H93.293) Active confirmed Plan Of Treatment No Information Insurance Providers Payer Name Payer Address Payer Phone Subscriber Number Group Number Insured Name Patient Relationship to Insured Coverage Start Date Coverage End Date MEDICARE [address] [place] [address] [id number] Vero Henry Self - patient is the insured 4 [place] [employer] [address] [address] [place] [phone] [id number] Vero Henry Self - patient is the insured 4 Medical (General) History Medical History History ICD Code diabetes liver disease HTN sleep apnea obesity Surgical History Surgery Date(Month/Year) gallbladder wisdom teeth right knee DNC x 2 Hospitalization History Reason Date(Month/Year) see above
[2025-07-06 23:35] LABS: Chloride* 96 mmol/L (96-114)
--- OUTSIDE RECORDS SUMMARY | 2025-07-06 23:35 | XMS_ITS ---
Author Name Interface, [id number] lity Address [address] [facility] [address] [place] [address] [facility] Address [address] [facility] [address] [place] [address] Support Name Relationship Address Phone Greg Henry [...] Ordered By Specimen Source Lab Address 11/05 [facility] [place] See resident programs assistant d 11/08 [facility] [place] See resident programs assistant d 11/22 Color (ua) Yellow FINAL Hafsa Bud [place] [facility] [place], [address] [facility] 210 [place] [phone] 0 Phone: () - 11/22 Appea ying (ua) Clear FINAL Hafsaanabel Rubi [facility] - [place], [address] [place] [address] 210 [place] [phone] 0 Phone: () - 11/22 Gluco se (ua), qual 500.0% Abnor mal FINAL Hafsaanabel [facility] - [place], [address] [place] [address] 210 [place] [phone] 0 Phone: () - 11/22 Bilir ubin (ua) Negativ e FINAL Hafsaanabel [facility] - [place], [address] [place] [address] 210 [place] [phone] 0 Phone: () - 11/22 Urina lysis , aceto ne or keton e chapo s measu remen t Negativ e FINAL Hafsaanabel [facility] - [place], [address] [place] [address] [address] [place] [phone] 0 Phone: () - 11/22 Speci fic gravi ty (ua) 1.005 1.02 1.025% Abnor mal FINAL Hafsaanabel [facility] - [place], [address] [place] [address] 210 [place] [phone] 0 Phone: () - 11/22 Blood (ua) Negativ e FINAL Hafsaanabel [facility] - [place], [address] [place] [address] 210 [place] [phone] 0 Phone: () - 11/22 pH (ua) 5.0 8.0 6.0% FINAL [facility]saanabel [facility] [place], [address] [place] [address] 210 [place] [phone] 0 Phone: () - 11/22 Prote in (ua) Negativ e FINAL Hafsaanabel [facility] - [place], [address] [place] [address] 210 [place] [phone] 0 Phone: () - 11/22 Urobi linog en (ua) 0.2 1.0 0.2% FINAL [facility]anabel [facility] [place], [address] [place] [address] 210 [facility] [phone] 0 Phone: () - 11/22 Nitri te (ua) Negativ e FINAL Hafsa Rubi a [facility], [address] [place] [address] 210 [facility] [phone] 0 Phone: () - 11/22 Leuko cyte jerson ase (ua), qual Negativ e FINAL Hafsa Rubi [facility], [address] [place] [address] [phone] Phone: () - 11/22 UA comme nt 1 Dipstic k negativ e- Culture ordered per provide r FINAL Hafsa Rubi [facility], [address] [place] [address] [phone] Phone: () - 11/22 Urine cultu re panel CULTU RE, URINE , ROUTI NE SEE NOTE Abnor mal CULTURE, URINE, 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 Number: [id number] est Status: FinalSpec imen Source: UrineSpec imen [...] [facility], [facility] [address] [facility] [id number] 4 12/18 [facility] [place] See d 04/18 Total prote in g/dL 6.3 8.2 6.9 FINAL Marlene Guzmán * [facility] [place] [facility], [facility] [address] [place] [address] [phone] 0 04/18 Album in, SPE g/dL 3.31 5.31 3.97 FINAL Marlene Guzmán * [facility] [place] [facility], [facility] [address] [place] [address] [id number] 0 04/18 Alpha -1 globu tony g/dL 0.19 0.42 0.26 FINAL Marlene Guzmán * [facility] [place] [facility], [address] [id number] 0 04/18 Alpha -2 globu tony g/dL 0.44 1.03 0.63 FINAL Marlene Guzmán * [facility] [place] [facility], [address] [id number] 04/18 Beta globu tony g/dL 0.52 1.05 0.95 FINAL Marlene Guzmán * [facility] [place] [facility], [address] [id number] 04/18 Gamma globu tony g/dL 0.59 1.46 1.10 FINAL Marlene Guzmán * [facility] [place] [facility], [facility]0 [facility] W [address] [place] [address] [id number] 0 04/18 Elect abiola jackson Gemma in Lab resul t note Previou sly identif ied parapro teins detecte d in gamma region. Were 0.3 and 0.4 gm/dL, now 0.3 and 0.3 gm/dL. Interpr eted and signed by Adrienne Swanson MD on 024 FINAL Marlene Guzmán * [facility] [place] [facility], [facility]0 [facility] [address] [place] [address] [id number] 0 04/18 M-spi ke, SPE, g/dL g/dL 0.0 0.0 0.3 High FINAL Marlene Guzmán * [facility] [place] [facility], [address] [facility] [address] [id number] 04/18 M-spi ke 2, SPE g/dL 0.0 0.0 0.3 High FINAL Marlene Guzmán * [facility] [place] [facility], [facility]0 [facility] [address] [place] [address] [id number] 0 04/18 Immun oglob ulin measu remen t IgG, quant mg/dL 610.0 1616.0 946.67 Test performed at [facility] on a Binding Site Optilite Analyzer that uses a turbidime tric method for analysis. Patient testing should not be performed using multiple methodreal gikim due to analytica l variation seen between test methodreal rocha. FINAL Marlene Guzmán * [facility], [facility] [address] [place] [address] [id number] 0 04/18 Immun oglob ulin measu remen t IgA, quant mg/dL 61.0 348.0 493.08 High Test performed at [facility] on a Binding Site Optilite Analyzer that uses a turbidime tric method for analysis. Patient testing should not be performed using multiple methodolo gies due to analytica l variation seen between test methodolo gies. FINAL Marlene Stroud [facility] [address] [place] [address] [id number] 0 04/18 Immun oglob ulin measu remen t IgM, quant mg/dL 35.0 242.0 75.62 Test performed at [facility] on a Binding Site Optilite Analyzer that uses a turbidime tric method for analysis. Patient testing should not be performed using multiple methodolo gies due to analytica l variation seen between test methodolo gies. FINAL Marlene Stroud [facility] a [address] [place] [address] [id number] 0 04/18 Free kappa / lambd a with K/L ratio , serum Disputanta light chain , free, serum , mg/dL mg/dL 0.33 1.94 3.62 High Test performed at [facility] on a Binding Site Optilite Analyzer that uses a turbidime tric method for analysis. Patient testing should not be performed using multiple methodolo gies due to analytica l variation seen between test methodolo gies. FINAL Marlene Guzmán * Jann a [address] [place] [address] [id number] 0 04/18 Free kappa / lambd a with K/L ratio , serum Lambd a light chain , free, serum , mg/dL mg/dL 0.57 2.63 3.13 High Test performed at [facility] on a Binding Site Optilite Analyzer that uses a turbidime tric method for analysis. Patient testing should not be performed using multiple methodolo gies due to analytica l variation seen between test methodolo gies. FINAL Marlene Stroud [facility] [address] [place] [address] [id number] 0 04/18 Free kappa / lambd a with K/L ratio , serum K/L light chain ratio , free, serum 0.26 1.65 1.16% FINAL Marlene Guzmán * [place] [place], [address] [facility] [place] [id number] 0 04/18 CBC w/ auto diff WBC K/uL 3.0 8.9 7.0 FINAL Marlene [facility] - [place], [address] [place] [id number] 0 Phone: () - 04/18 CBC w/ auto diff HGB g/dL 11.3 15.2 14.0 FINAL Marlene Rubi [facility] - [place], [address] [place] [id number] 0 Phone: () - 04/18 CBC w/ auto diff PLT K/uL 113.0 364.0 164 FINAL Marlene Rubi a [facility] - [place], [address] [place] [id number] 0 Phone: () - 04/18 CBC w/ auto diff Tammy # (ANC) K/uL 1.6 6.6 4.5 FINAL Marlene pagan [facility] - [place], [address] [place] [id number] 0 Phone: () - 04/18 CBC w/ auto diff Tammy % % 43.0 74.0 64.0 FINAL Marlene pagan [facility] - [place], [address] [place] [id number] 0 Phone: () - 04/18 CBC w/ auto diff IG % % 0.0 0.5 0.3 FINAL Marlene Rubi a [facility] - [place], [address] [place] [id number] 0 Phone: () - 04/18 CBC w/ auto diff IG # K/uL 0.0 0.03 0.02 FINAL Marlene Rubi a [facility] - [place], [address] [place] [id number] 0 Phone: () - 04/18 CBC w/ auto diff LY % % 14.0 41.0 28.2 FINAL Marlene pagan [facility] - [place], [address] [place] [id number] 0 Phone: () - 04/18 CBC w/ auto diff MO % % 6.0 15.0 6.0 FINAL Marlene [facility] - [place], [address] [place] [id number] 0 Phone: () - 04/18 CBC w/ auto diff EO % % 0.0 7.0 1.1 FINAL Marlene pagan [facility] - [place], [address] [place] [id number] 0 Phone: () - 04/18 CBC w/ auto diff BA % % 0.0 2.0 0.4 FINAL Marlene [facility] - [place], [address] [place] [id number] 0 Phone: () - 04/18 CBC w/ auto diff LY # K/uL 0.4 3.6 2.0 FINAL Marlene [facility] - [place], [address] [place] [id number] 0 Phone: () - 04/18 CBC w/ auto diff MO # K/uL 0.2 1.3 0.4 FINAL Marlene pagan [facility] - [place], [address] [place] [id number] 0 Phone: () - 04/18 CBC w/ auto diff EO # K/uL 0.0 0.6 0.1 FINAL Marlene pagan [facility] - [place], [address] [place] [id number] 0 Phone: () - 04/18 CBC w/ auto diff BA # K/uL 0.0 0.2 0.0 FINAL Marlene pagan [facility] - [place], [address] [place] [id number] 0 Phone: () - 04/18 CBC w/ auto diff NRBC % #/100W BC 0.0 0.2 0.0 FINAL Marlene [facility] [facility] - [place], [address] [place] [id number] 0 Phone: () - 04/18 CBC w/ auto diff RBC M/uL 3.9 5.1 4.84 FINAL Marlene [facility] - [place], [address] [place] [id number] 0 Phone: () - 04/18 CBC w/ auto diff HCT % 35.0 48.0 40.4 FINAL Marlene Ramirez [facility] - [place], [address] [place] [id number] 0 Phone: () - 04/18 CBC w/ auto diff MCV fL 80.0 104.0 83.5 FINAL Marlene Ramirez [facility] - [place], [address] [place] [id number] 0 Phone: () - 04/18 CBC w/ auto diff MCH pg 26.0 35.0 28.9 FINAL Marlene Guzmán [facility] - [place], [address] [place] [id number] 0 Phone: () - 04/18 CBC w/ auto diff MCHC g/dL 30.0 35.0 34.7 FINAL Marlene Guzmán [facility] - [place], [address] [place] [id number] 0 Phone: () - 04/18 CBC w/ auto diff MPV fL 9.5 13.4 9.7 FINAL Marlene Guzmán [facility] - [place], [address] [place] [id number] 0 Phone: () - 04/18 CBC w/ auto diff RDW % 11.4 16.1 13.80 FINAL Marlene Guzmán [facility] [facility] [place], [address] [facility] [place] [id number] 0 Phone: ( 04/18 CMP Album in g/dL 3.5 5.0 4.0 FINAL Marlene Guzmán * [facility] [place], [address] [facility] [id number] 0 04/18 CMP Alkal ine phosp hatas e U/L 36.0 125.0 105 FINAL Marlene Guzmán * [facility] [facility], [address] [facility] [id number] 0 04/18 CMP ALT/S GPT U/L 0.0 34.0 35 High FINAL Marlene Guzmán * [facility] [facility], [address] [facility] [id number] 0 04/18 CMP AST/S GOT U/L 14.0 36.0 44 High FINAL Marlene Guzmán * [facility] [facility], [address] [facility] [id number] 0 04/18 CMP BUN mg/dL 7.0 17.0 21.0 High FINAL Marlene Guzmán * [place] [facility], [address] [facility] [id number] 0 04/18 CMP Calci um mg/dL 8.4 10.2 8.8 FINAL Marlene Guzmán * [place] [facility], [address] [facility] [id number] 0 04/18 CMP Chlor inlson mmol/L 96.0 107.0 106 FINAL Marlene Guzmán * [place] [facility], [address] [facility] [id number] 0 04/18 CMP CO2 mmol/L 22.0 30.0 [...] 96 hour stability window. FINAL Marlene Stroud [facility], [facility] [address] [id number] 0 04/18 CMP Creat inine mg/dL 0.66 1.25 0.70 FINAL Marlene Guzmán * [facility] [place] [facility], [address] [place] [address] [id number] 0 04/18 CMP GFR estim ate ml/min /1.73m ^2 97.7 GFR is calculate d using the CKD-EPI equation. FINAL Marlene Stroud [facility], [facility] [address] [id number] 0 04/18 CMP Gluco se mg/dL 74.0 100.0 267 High FINAL Marlene Stroud [facility], [facility] [address] [place] [address] [id number] 0 04/18 CMP Potas sium mmol/L 3.5 5.1 4.0 FINAL Marlene Stroud [facility], [facility] [address] [id number] 0 04/18 CMP Sodiu m mmol/L 137.0 145.0 136 Low FINAL Marlene Stroud [facility], [facility] [address] [id number] 0 04/18 CMP Bilir ubin, total mg/dL 0.2 1.3 1.0 FINAL Marlene Stroud [facility], [address] [facility] [address] [id number] 0 04/18 CMP Total prote in g/dL 6.3 8.2 7.3 FINAL Marlene Guzmán * [facility] [place], [address] [facility] [address] [id number] 0 04/18 [facility] [place] See resident programs assistant d 12[facility]20 [facility] [place] See resident programs assistant d 12/20 [facility] [place] See resident programs assistant d 03/09 Free kappa / lambd a with K/L ratio , serum Disputanta light chain , free, serum , mg/dL mg/dL 0.33 1.94 4.35 High Test performed at [facility] on a Binding Site Optilite Analyzer that uses a turbidime tric method for analysis. Patient testing should not be performed using multiple methodolo gies due to analytica l variation seen between test methodolo gies. FINAL Marlene Guzmán * [facility] , [address] [facility] [address] [id number] 0 03/09 Free kappa / lambd a with K/L ratio , serum Lambd a light chain , free, serum , mg/dL mg/dL 0.57 2.63 3.83 High Test performed at [facility] on a Binding Site Optilite Analyzer that uses a turbidime tric method for analysis. Patient testing should not be performed using multiple methodolo gies due to analytica l variation seen between test methodolo gies. FINAL Marlene Guzmán * [facility] , [address] [facility] [address] [id number] 0 03/09 Free kappa / lambd a with K/L ratio , serum K/L light chain ratio , free, serum 0.26 1.65 1.14% FINAL Marlene Guzmán * [facility] , [address] [facility] [address] [id number] 0 03/09 CMP Album in g/dL 3.5 5.0 3.8 FINAL Marlene Guzmán * [facility] , [address] [facility] [id number] 0 03/09 CMP Alkal ine phosp hatas e U/L 36.0 125.0 106 FINAL Marleneanabel Guzmán * [facility] , [address] [facility] [id number] 0 03/09 CMP ALT/S GPT U/L 0.0 34.0 37 High FINAL Marlene Guzmán * [facility] , [address] [facility] [id number] 0 03/09 CMP AST/S GOT U/L 14.0 36.0 36 FINAL Marlene Guzmán * [facility] , [address] [facility] [id number] 0 03/09 CMP BUN mg/dL 7.0 17.0 18.0 High FINAL Marlene Guzmán * [facility] , [address] [facility] [id number] 0 03/09 CMP Calci um mg/dL 8.4 10.2 8.9 FINAL Marleneanabel Guzmán * [facility] , [address] [facility] [id number] 0 03/09 CMP Chlor nilson mmol/L 96.0 107.0 99 FINAL Marleneanabel Guzmán * [facility] , [address] [facility] [id number] 0 03/09 CMP CO2 mmol/L 22.0 30.0 [...] hour stability window. FINAL Marleneanabel Guzmán * [facility] , [address] [facility] [address] [facility] [id number] 0 03/09 CMP Creat inine mg/dL 0.66 1.25 0.70 FINAL Marleneanabel Guzmán * [facility] , [address] [facility] [address] [facility] [id number] 0 03/09 CMP GFR estim ate ml/min /1.73m ^2 97.1 GFR is calculate d using the CKD-EPI equation. FINAL Marleneanabel Guzmán * [facility] , [address] [facility] [address] [facility] [id number] 0 03/09 CMP Gluco se mg/dL 74.0 100.0 363 Criti sami High FINAL Marlene Guzmán * [facility] , [address] [facility] [address] [facility] [id number] 0 03/09 CMP Potas sium mmol/L 3.5 5.1 3.9 FINAL Marlene Ramirez * [facility] , [address] [facility] [address] [facility] [id number] 0 03/09 CMP Sodiu m mmol/L 137.0 145.0 134 Low FINAL Marleneanabel Guzmán * [facility] , [address] [facility] [address] [facility] [id number] 0 03/09 CMP Bilir ubin, total mg/dL 0.2 1.3 1.1 FINAL Marleneanabel Guzmán * [facility] , [address] [facility] [address] [facility] [id number] 0 03/09 CMP Total prote in g/dL 6.3 8.2 7.3 FINAL Marlene Guzmán * [facility] , [address] [facility] [address] [facility] [id number] 0 03/09 CBC w/ auto diff WBC K/uL 3.0 8.9 7.1 FINAL Marlene Guzmán [place] [facility] , [address] [place] [id number] 0 03/09 CBC w/ auto diff HGB g/dL 11.3 15.2 14.4 FINAL Marlene Guzmán [place] [facility] , [address] [place] [id number] 0 03/09 CBC w/ auto diff PLT K/uL 113.0 364.0 179 FINAL Marlene Guzmán [place] [facility] , [address] [place] [id number] 0 03/09 CBC w/ auto diff Tammy # (ANC) K/uL 1.6 6.6 4.7 FINAL Marlene Guzmán [facility] [place] [facility] , [address] [place] [id number] 0 03/09 CBC w/ auto diff Tammy % % 43.0 74.0 65.7 FINAL Marlene Guzmán [place] [facility] , [address] [place] [id number] 0 03/09 CBC w/ auto diff IG % % 0.0 0.5 0.6 High FINAL Marlene Guzmán [place] [facility] , [address] [place] [id number] 0 03/09 CBC w/ auto diff IG # K/uL 0.0 0.03 0.04 High FINAL Marlene Guzmán [place] [facility] , [address] [place] [id number] 0 03/09 CBC w/ auto diff LY % % 14.0 41.0 25.8 FINAL Marlene Guzmán [place] [facility] , [address] [place] [id number] 0 03/09 CBC w/ auto diff MO % % 6.0 15.0 6.2 FINAL Marlene Guzmán [place] [facility] , [address] [place] [id number] 0 03/09 CBC w/ auto diff EO % % 0.0 7.0 1.1 FINAL Marlene Guzmán [place] [facility] , [address] [place] [id number] 0 03/09 CBC w/ auto diff BA % % 0.0 2.0 0.6 FINAL Marlene Guzmán [place] [facility] , [address] [place] [id number] 0 03/09 CBC w/ auto diff LY # K/uL 0.4 3.6 1.8 FINAL Marlene Guzmán [place] [facility] , [address] [place] [id number] 0 03/09 CBC w/ auto diff MO # K/uL 0.2 1.3 0.4 FINAL Marlene Guzmán [place] [facility] , [address] [place] [id number] 0 03/09 CBC w/ auto diff EO # K/uL 0.0 0.6 0.1 FINAL Marlene Guzmán [place] [facility] , [address] [place] [id number] 0 03/09 CBC w/ auto diff BA # K/uL 0.0 0.2 0.0 FINAL Marlene Guzmán [place] [facility] , [address] [place] [id number] 0 03/09 CBC w/ auto diff NRBC % #/100W BC 0.0 0.2 0.0 FINAL Marlene Guzmán [place] [facility] , [address] [place] [id number] 0 03/09 CBC w/ auto diff RBC M/uL 3.9 5.1 5.08 FINAL Marlene Guzmán [place] [facility] , [address] [place] [id number] 0 03/09 CBC w/ auto diff HCT % 35.0 48.0 42.9 FINAL Marlene Guzmán [facility] [place] [facility] , [address] [place] [id number] 0 03/09 CBC w/ auto diff MCV fL 80.0 104.0 84.4 FINAL Marlene Guzmán [facility] [place] [facility] , [address] [place] [id number] 0 03/09 CBC w/ auto diff MCH pg 26.0 35.0 28.3 FINAL Marlene Guzmán [facility] [place] [facility] , [address] [place] [id number] 0 03/09 CBC w/ auto diff MCHC g/dL 30.0 35.0 33.6 FINAL Marlene Guzmán [facility] [place] [facility] , [address] [place] [id number] 0 03/09 CBC w/ auto diff MPV fL 9.5 13.4 9.6 FINAL Marlene Guzmán [place] [facility] , [address] [place] [id number] 0 03/09 CBC w/ auto diff RDW % 11.4 16.1 14.20 FINAL Marlene Guzmán [facility] , [address] [facility] [id number] 0 03/09 Total prote in g/dL 6.3 8.2 7.1 FINAL Marlene Guzmán * [facility] , [address] [facility] [address] [facility] [id number] 0 03/09 Album in, SPE g/dL 3.31 5.31 4.70 FINAL Marlene Guzmán * [facility] , [address] [facility] [address] [id number] 0 03/09 Alpha -1 globu tony g/dL 0.19 0.42 0.23 FINAL Marlene Guzmán * [facility] , [address] [facility] [address] [id number] 0 03/09 Alpha -2 globu tony g/dL 0.44 1.03 0.52 FINAL Marlene Guzmán * [facility] , [address] [facility] [address] [id number] 0 03/09 Beta globu tony g/dL 0.52 1.05 0.80 FINAL Marlene Guzmán * [facility] , [address] [facility] [address] [id number] 0 03/09 Gamma globu tony g/dL 0.59 1.46 0.85 FINAL Marlene Guzmán * [facility] , [address] [facility] [address] [facility] [id number] 0 03/09 Gemma Rodriguez in Lab resul t note Previou sly identif ied parapro teins detecte d in gamma region. Is now 0.3 and 0.4 gm/dL. Interpr eted and signed by Luis Guillermo MD on 025 FINAL Marlene Guzmán * [facility] , [address] [facility] [id number] 0 03/09 M-spi ke, SPE, g/dL g/dL 0.0 0.0 0.3 High FINAL Marlene Guzmán * [facility] , [address] [facility] [id number] 0 03/09 M-spi ke 2, SPE g/dL 0.0 0.0 0.4 High FINAL Marlene Guzmán * [facility] , [address] [facility] [id number] 0 03/09 Immun oglob ulin measu remen t IgG, quant mg/dL 610.0 1616.0 1080.49 Test performed at [facility] on a Binding Site Optilite Analyzer that uses a turbidime tric method for analysis. Patient testing should not be performed using multiple methodolo gies due to analytica l variation seen between test methodolo gies. FINAL Marlene Guzmán * [facility] , [address] [facility] [id number] 0 03/09 Immun oglob ulin measu remen t IgA, quant mg/dL 61.0 348.0 577.26 High Test performed at [facility] on a Binding Site Optilite Analyzer that uses a turbidime tric method for analysis. Patient testing should not be performed using multiple methodolo gies due to analytica l variation seen between test methodolo gies. FINAL Marlene Guzmán * [facility] , [address] [facility] [id number] 0 03/09 Immun oglob ulin measu remen t IgM, quant mg/dL 35.0 242.0 91.00 Test performed at [facility] on a Binding Site Optilite Analyzer that uses a turbidime tric method for analysis. Patient testing should not be performed using multiple methodolo gies due to analytica l variation seen between test methodolo josefina. FINAL Marlene Guzmán * [facility] , [address] [facility] [id number] 0 04/03 [facility] [place] See attache malave Medications Date [...] 04/10/2025 Body Temperature 97.50 Notes Section * OSTEOPATHIC NEUROLOGIST Onc Consult Note (Amended) GYNECOLOGIC ONCOLOGY CONSULT Patient Name: VERO HENRY Patient : 1960 Patient Referring Physician: Malissa Hernandez MD (MANAGER STORE) Primary GYNOncologist: Marlene Guzmán (Hematology/Oncology) Date of Service: 08/03/2023 Reason for Consult: I was asked by Dr. Malissa Hernandez to see Vero Henry in regard to a recent diagnosis of EIN/CAH. History of Present Illness ([facility]): 63 y.o.?? * Presented with c/o [...] with myosure * Pathology:?? 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 Anxious, , female with somewhat [...] record:05/23/2019 Last record:05/23/2019; ) Assessment & Plan ([facility]): 63?? y.o. with abnormal uterine bleeding/PMB [...] signed by Abbie Gallo MD 08/03/2023 12:46 FOLLOW UP SPECIALIST
--- OUTSIDE RECORDS SUMMARY | 2025-07-06 23:35 | XMS_ITS ---
Author Name Interface, [id number] lity Address [address] [facility] [address] [place] [address] [facility] Address [address] [facility] [address] [place] [address] Support Name Relationship Address Phone Greg Ch [...] FINAL [facility] [place], [address] [place] [address] 210 [facility] [phone] Phone: () - 11/22 Appea ying (ua) Clear FINAL [facility] [place], [address] [place] [address] 210 [facility] [phone] Phone: () - 11/22 Gluco se (ua), qual 500.0% Abnor mal FINAL [facility] [place], [address] [facility] 210 [facility] [phone] 0 Phone: () - 11/22 Bilir ubin (ua) Negativ e FINAL [facility] [place], [address] [place] [address] 210 [facility] [phone] Phone: () - 11/22 Urina lysis , aceto ne or keton e chapo s measu remen t Negativ e FINAL [facility] [place], [address] [facility] [address] [place] [phone] 0 Phone: () - 11/22 Speci fic gravi ty (ua) 1.005 1.02 1.025% Abnor mal FINAL [facility] [place], [address] [facility] [address] [place] [phone] Phone: () - 11/22 Blood (ua) Negativ e FINAL [facility] [place], [address] [place] [address] [address] [place] [phone] 0 Phone: () - 11/22 pH (ua) 5.0 8.0 6.0% FINAL [facility] [place], [address] [place] [address] 210 [facility] [phone] 0 Phone: () - 11/22 Prote in (ua) Negativ e FINAL [facility] [place], [address] [place] [address] [address] [place] [phone] 0 Phone: () - 11/22 Urobi linog en (ua) 0.2 1.0 0.2% FINAL [facility] [place], [address] [place] [address] [address] [place] [phone] 0 Phone: () - 11/22 Nitri te (ua) Negativ e FINAL [facility] [place], [address] [place] [address] [address] [place] [phone] 0 Phone: () - 11/22 Leuko cyte jerson ase (ua), qual Negativ e FINAL [facility]sa [facility] [place], [address] [place] [address] [address] [place] [phone] Phone: () - 11/22 UA comme nt 1 Dipstic k negativ e- Culture ordered per provide r FINAL [facility] [place], [address] [place] [address] [address] [place] [phone] Phone: () - 11/22 Urine cultu re panel CULTU RE, URINE , ROUTI NE SEE NOTE Abnor mal CULTURE, URINE, ROUTINEMi parachute crown sewer Number: [id number] est Status: FinalSpec imen Source: UrineSpec imen [...] f. FINAL Hafsa Bud [facility], [facility] [address] [facility] [id number] 4 12/18 [facility] other lab See fuel quality tech d 04/18 Total prote in g/dL 6.3 8.2 6.9 FINAL Marlene Guzmán * [facility], [address] [facility] [address] [place] [address] [id number] 04/18 Album in, SPE g/dL 3.31 5.31 3.97 FINAL Marlene Guzmán * [facility], [facility]0 [facility] [address] [place] [address] [id number] 04/18 Alpha -1 globu tony g/dL 0.19 0.42 0.26 FINAL Marlene Guzmán * [facility], [facility]0 [facility] [address] [place] [address] [id number] 0 04/18 Alpha -2 globu tony g/dL 0.44 1.03 0.63 FINAL Marlene Guzmán * [facility] [address] [place] [address] [id number] 0 04/18 Beta globu tony g/dL 0.52 1.05 0.95 FINAL Marlene Guzmán * [facility], [address] [facility] [address] [place] [address] [id number] 0 04/18 Gamma globu tony g/dL 0.59 1.46 1.10 FINAL Marlene Guzmán * [facility], [address] [facility] [address] [place] [address] [id number] 0 04/18 Elect Gemma layton in Lab resul t note Previou sly identif ied parapro teins detecte d in gamma region. Were 0.3 and 0.4 gm/dL, now 0.3 and 0.3 gm/dL. Interpr eted and signed by Adrienne Swanson MD on 024 FINAL Marlene Guzmán * [facility], [facility]0 [facility] [address] [place] [address] [id number] 0 04/18 M-spi ke, SPE, g/dL g/dL 0.0 0.0 0.3 High FINAL Marleneanabel Guzmán * [facility], [address] [facility] [id number] 0 04/18 M-spi ke 2, SPE g/dL 0.0 0.0 0.3 High FINAL Marlene Guzmán * [facility], [address] [facility] [address] [facility] [id number] 0 04/18 Immun oglob ulin measu remen t IgG, quant mg/dL 610.0 1616.0 946.67 Test performed at [facility] on a Binding Site Optilite Analyzer that uses a turbidime tric method for analysis. Patient testing should not be performed using multiple methodolo gies due to analytica l variation seen between test methodolo gies. FINAL Marlene Guzmán * [facility], [address] [id number] 0 04/18 Immun oglob ulin measu remen t IgA, quant mg/dL 61.0 348.0 493.08 High Test performed at [facility] on a Binding Site Optilite Analyzer that uses a turbidime tric method for analysis. Patient testing should not be performed using multiple methodolo gies due to analytica l variation seen between test methodolo gies. FINAL Marlene Guzmán * [facility], [address] [id number] 0 04/18 Immun oglob ulin measu remen t IgM, quant mg/dL 35.0 242.0 75.62 Test performed at [facility] on a Binding Site Optilite Analyzer that uses a turbidime tric method for analysis. Patient testing should not be performed using multiple methodolo gies due to analytica l variation seen between test methodolo gies. FINAL Marlene Guzmán * [facility], [address] [id number] 0 04/18 Free kappa / lambd a with K/L ratio , serum Kamiah light chain , free, serum , mg/dL mg/dL 0.33 1.94 3.62 High Test performed at [facility] on a Binding Site Optilite Analyzer that uses a turbidime tric method for analysis. Patient testing should not be performed using multiple methodolo gies due to analytica l variation seen between test methodolo gies. FINAL Marlene Stroud [facility], [address] [id number] 0 04/18 Free kappa / lambd a [...] methodolo gies. FINAL Marlene [facility], [address] [facility] [address] [id number] 0 04/18 Free kappa / lambd a with K/L ratio , serum K/L light chain ratio , free, serum 0.26 1.65 1.16% FINAL Marlene [facility], [address] [facility] [address] [id number] 0 04/18 CBC w/ auto diff WBC K/uL 3.0 8.9 7.0 FINAL Marlene [facility] [place], [address] [facility] [address] [facility] [id number] 0 Phone: () - 04/18 CBC w/ auto diff HGB g/dL 11.3 15.2 14.0 FINAL Marlene [facility] - [place], [address] [place] [id number] 0 Phone: () - 04/18 CBC w/ auto diff PLT K/uL 113.0 364.0 164 FINAL Marlene Rubi [facility] - [place], [address] [place] [id number] 0 Phone: () - 04/18 CBC w/ auto diff Tammy # (ANC) K/uL 1.6 6.6 4.5 FINAL Marlene [facility] - [place], [address] [place] [id number] 0 Phone: () - 04/18 CBC w/ auto diff Tammy % % 43.0 74.0 64.0 FINAL Marlene Ramirez [facility] [place], [address] [place] [id number] 0 Phone: () - 04/18 CBC w/ auto diff IG % % 0.0 0.5 0.3 FINAL Marlene Ramirez [facility] [place], [address] [place] [id number] 0 Phone: () - 04/18 CBC w/ auto diff IG # K/uL 0.0 0.03 0.02 FINAL Marlene Ramirez [facility] [place], [address] [place] [id number] 0 Phone: () - 04/18 CBC w/ auto diff LY % % 14.0 41.0 28.2 FINAL Marlene Guzmán [facility] [place], [address] [place] [id number] 0 Phone: () - 04/18 CBC w/ auto diff MO % % 6.0 15.0 6.0 FINAL Marlene Guzmán [facility] [place], [address] [place] [id number] 0 Phone: () - 04/18 CBC w/ auto diff EO % % 0.0 7.0 1.1 FINAL Marlene Ramirez [facility] [place], [address] [place] [id number] 0 Phone: () - 04/18 CBC w/ auto diff BA % % 0.0 2.0 0.4 FINAL Marlene [facility] [place], [address] [place] [id number] 0 Phone: () - 04/18 CBC w/ auto diff LY # K/uL 0.4 3.6 2.0 FINAL Marlene [facility] - [place], [address] [place] [id number] 0 Phone: () - 04/18 CBC w/ auto diff MO # K/uL 0.2 1.3 0.4 FINAL Marlene [facility] - [place], [address] [place] [id number] 0 Phone: () - 04/18 CBC w/ auto diff EO # K/uL 0.0 0.6 0.1 FINAL Marlene [facility] - [place], [address] [place] [id number] 0 Phone: () - 04/18 CBC w/ auto diff BA # K/uL 0.0 0.2 0.0 FINAL Marlene [facility] - [place], [address] [place] [id number] 0 Phone: () - 04/18 CBC w/ auto diff NRBC % #/100W BC 0.0 0.2 0.0 FINAL Marlene [facility] - [place], [address] [place] [id number] 0 Phone: () - 04/18 CBC w/ auto diff RBC M/uL 3.9 5.1 4.84 FINAL Marlene [facility] [place], [address] [place] [id number] 0 Phone: () - 04/18 CBC w/ auto diff HCT % 35.0 48.0 40.4 FINAL Marlene Guzmán [facility] [place], [address] [place] [id number] 0 Phone: () - 04/18 CBC w/ auto diff MCV fL 80.0 104.0 83.5 FINAL Marlene Guzmán [facility] [place], [address] [place] [id number] 0 Phone: () - 04/18 CBC w/ auto diff MCH pg 26.0 35.0 28.9 FINAL Marlene Guzmán [facility] [place], [address] [place] [id number] 0 Phone: () - 04/18 CBC w/ auto diff MCHC g/dL 30.0 35.0 34.7 FINAL Marlene Guzmán [facility] [place], [address] [place] [id number] 0 Phone: () - 04/18 CBC w/ auto diff MPV fL 9.5 13.4 9.7 FINAL Marlene Guzmán [facility] [place], [address] [place] [id number] 0 Phone: () - 04/18 CBC w/ auto diff RDW % 11.4 16.1 13.80 FINAL Marlene Guzmán [facility] [place], [address] [place] [id number] 0 Phone: () - 04/18 CMP Album in g/dL 3.5 5.0 4.0 FINAL Marlene Guzmán * [facility] [place], [address] [place] [id number] 0 04/18 CMP Alkal ine phosp hatas e U/L 36.0 125.0 105 FINAL Marlene Guzmán * [facility] [place], [address] [place] [id number] 0 04/18 CMP ALT/S GPT U/L 0.0 34.0 35 High FINAL Marlene Guzmán * [facility], [address] [facility] [address] [id number] 0 04/18 CMP AST/S GOT U/L 14.0 36.0 44 High FINAL Marlene Guzmán * [facility], [address] [facility] [address] [id number] 0 04/18 CMP BUN mg/dL 7.0 17.0 21.0 High FINAL Marlene Guzmán * [facility], [address] [facility] [address] [id number] 0 04/18 CMP Calci um mg/dL 8.4 10.2 8.8 FINAL Marlene Guzmán * [facility], [address] [facility] [address] [id number] 0 04/18 CMP Chlor nilson mmol/L 96.0 107.0 106 FINAL Marlene Guzmán * [facility], [address] [facility] [address] [id number] 0 04/18 CMP CO2 mmol/L 22.0 30.0 [...] [facility], [address] [facility] [address] [id number] 0 04/18 CMP Creat inine mg/dL 0.66 1.25 0.70 FINAL Marlene Guzmán * [facility], [address] [facility] [id number] 0 04/18 CMP GFR estim ate ml/min /1.73m ^2 97.7 GFR is calculate d using the CKD-EPI equation. FINAL Marlene Guzmán * [facility], [address] [facility] [id number] 0 04/18 CMP Gluco se mg/dL 74.0 100.0 267 High FINAL Marlene Guzmán * [facility], [address] [facility] [id number] 0 04/18 CMP Potas sium mmol/L 3.5 5.1 4.0 FINAL Marlene Guzmán * [facility], [address] [facility] [place] [id number] 0 04/18 CMP Sodiu m mmol/L 137.0 145.0 136 Low FINAL Marlene Guzmán * [facility], [address] [facility] [id number] 0 04/18 CMP Bilir ubin, total mg/dL 0.2 1.3 1.0 FINAL Marlene Guzmán * [facility], [address] [facility] [id number] 0 04/18 CMP Total prote in g/dL 6.3 8.2 7.3 FINAL Marlene Guzmán * [facility], [address] [facility] [id number] 0 04/18 [facility] other lab See fuel quality tech d 12/20 [facility] other lab See fuel quality tech d 12/20 Misc other lab See fuel quality tech d 03/09 Free kappa / lambd a with K/L ratio , serum Kamiah light chain , free, serum , mg/dL mg/dL 0.33 1.94 4.35 High Test performed at [facility] on a Binding Site Optilite Analyzer that uses a turbidime tric method for analysis. Patient testing should not be performed using multiple methodolo gies due to analytica l variation seen between test methodolo gies. FINAL Marlene Guzmán * [facility] , [address] [facility] [address] [facility] [id number] 0 03/09 Free kappa / lambd a [...] * [facility] , [address] [facility] [address] [id number] 0 03/09 Free kappa / lambd a with K/L ratio , serum K/L light chain ratio , free, serum 0.26 1.65 1.14% FINAL Marlene Guzmán * [facility] , [address] [facility] [address] [id number] 0 03/09 CMP Album in g/dL 3.5 5.0 3.8 FINAL Marlene Guzmán * [facility] , [address] [facility] [address] [id number] 0 03/09 CMP Alkal ine phosp hatas e U/L 36.0 125.0 106 FINAL Marlene Guzmán * [facility] , [address] [facility] [address] [id number] 0 03/09 CMP ALT/S GPT U/L 0.0 34.0 37 High FINAL Marlene Guzmán * [facility] , [address] [facility] [address] [id number] 0 03/09 CMP AST/S GOT U/L 14.0 36.0 36 FINAL Marlene Ramirez * [facility] , [address] [facility] [address] [facility] [place] [id number] 0 03/09 CMP BUN mg/dL 7.0 17.0 18.0 High FINAL Marlene Guzmán * [facility] , [address] [facility] [address] [facility] [id number] 0 03/09 CMP Calci um mg/dL 8.4 10.2 8.9 FINAL Marlene Guzmán * [facility] , [address] [facility] [address] [facility] [id number] 0 03/09 CMP Chlor nilson mmol/L 96.0 107.0 99 FINAL Marlene Guzmán * [facility] , [address] [facility] [address] [facility] [id number] 0 03/09 CMP CO2 mmol/L 22.0 30.0 [...] * [facility] , [address] [facility] [address] [facility] [id number] 0 03/09 CMP Creat inine mg/dL 0.66 1.25 0.70 FINAL Marlene Guzmán * [facility] , [address] [facility] [address] [facility] [id number] 0 03/09 CMP GFR estim ate ml/min /1.73m ^2 97.1 GFR is calculate d using the CKD-EPI equation. FINAL Marlene Guzmán * [facility] , [address] [facility] [address] [id number] 0 03/09 CMP Gluco se mg/dL 74.0 100.0 363 Criti sami High FINAL Marlene Guzmán * [facility] , [address] [facility] [address] [facility] [id number] 0 03/09 CMP Potas sium mmol/L 3.5 5.1 3.9 FINAL Marlene Guzmán * [facility] , [address] [facility] [address] [facility] [place] [id number] 0 03/09 CMP Sodiu m mmol/L 137.0 145.0 134 Low FINAL Marlene Guzmán * [facility] , [address] [facility] [address] [facility] [id number] 0 03/09 CMP Bilir ubin, total mg/dL 0.2 1.3 1.1 FINAL Marlene Guzmán * [facility] , [address] [facility] [address] [facility] [id number] 0 03/09 CMP Total prote in g/dL 6.3 8.2 7.3 FINAL Marlene Guzmán * [facility] , [address] [facility] [address] [facility] [id number] 0 03/09 CBC w/ auto diff WBC K/uL 3.0 8.9 7.1 FINAL Marlene Guzmán [place] [facility] [place] [facility] , [address] [place] [id number] 0 03/09 CBC w/ auto diff HGB g/dL 11.3 15.2 14.4 FINAL Marlene Guzmán [place] [facility] [place] [facility] , [address] [place] [id number] 0 03/09 CBC w/ auto diff PLT K/uL 113.0 364.0 179 FINAL Marlene Guzmán [place] [facility] [place] [facility] , [address] [place] [id number] 0 03/09 CBC w/ auto diff Tammy # (ANC) K/uL 1.6 6.6 4.7 FINAL Marlene Guzmán [place] [facility] [place] [facility] , [address] [place] [id number] 0 03/09 CBC w/ auto diff Tammy % % 43.0 74.0 65.7 FINAL Marlene Guzmán [place] [facility] [place] [facility] , [address] [place] [id number] 0 03/09 CBC w/ auto diff IG % % 0.0 0.5 0.6 High FINAL Marlene Guzmán [place] [facility] [place] [facility] , [address] [place] [id number] 0 03/09 CBC w/ auto diff IG # K/uL 0.0 0.03 0.04 High FINAL Marlene Guzmán [place] [facility] [place] [facility] , [address] [place] [id number] 0 03/09 CBC w/ auto diff LY % % 14.0 41.0 25.8 FINAL Marlene Guzmán [place] [facility] [place] [facility] , [address] [place] [id number] 0 03/09 CBC w/ auto diff MO % % 6.0 15.0 6.2 FINAL Marlene Guzmán [place] [facility] [place] [facility] , [address] [place] [id number] 0 03/09 CBC w/ auto diff EO % % 0.0 7.0 1.1 FINAL Marlene Guzmán [place] [facility] [place] [facility] , [address] [place] [id number] 0 03/09 CBC w/ auto diff BA % % 0.0 2.0 0.6 FINAL Marlene Guzmán [place] [facility] [place] [facility] , [address] [place] [id number] 0 03/09 CBC w/ auto diff LY # K/uL 0.4 3.6 1.8 FINAL Marlene Guzmán [place] [facility] [place] [facility] , [address] [place] [id number] 0 03/09 CBC w/ auto diff MO # K/uL 0.2 1.3 0.4 FINAL Marlene Guzmán [place] [facility] [place] [facility] , [address] [place] [id number] 0 03/09 CBC w/ auto diff EO # K/uL 0.0 0.6 0.1 FINAL Marlene Guzmán [place] [facility] [place] [facility] , [address] [place] [id number] 0 03/09 CBC w/ auto diff BA # K/uL 0.0 0.2 0.0 FINAL Marlene Guzmán [place] [facility] [place] [facility] , [address] [place] [id number] 0 03/09 CBC w/ auto diff NRBC % #/100W BC 0.0 0.2 0.0 FINAL Marlene Guzmán [place] [facility] [place] [facility] , [address] [place] [id number] 0 03/09 CBC w/ auto diff RBC M/uL 3.9 5.1 5.08 FINAL Marlene Guzmán [place] [facility] [place] [facility] , [address] [place] [id number] 0 03/09 CBC w/ auto diff HCT % 35.0 48.0 42.9 FINAL Marlene Guzmán [facility] , [address] [place] [facility] [id number] 0 03/09 CBC w/ auto diff MCV fL 80.0 104.0 84.4 FINAL Marlene Guzmán [facility] , [address] [facility] [address] [place] [facility] [id number] 0 03/09 CBC w/ auto diff MCH pg 26.0 35.0 28.3 FINAL Marlene Guzmán [facility] , [address] [facility] [address] [facility] [id number] 0 03/09 CBC w/ auto diff MCHC g/dL 30.0 35.0 33.6 FINAL Marlene Guzmán [facility] , [address] [facility] [address] [facility] [id number] 0 03/09 CBC w/ auto diff MPV fL 9.5 13.4 9.6 FINAL Marlene Guzmán [facility] , [address] [facility] [address] [facility] [id number] 0 03/09 CBC w/ auto diff RDW % 11.4 16.1 14.20 FINAL Marlene Guzmán [facility] , [address] [facility] [address] [facility] [id number] 0 03/09 Immun oglob ulin measu remen [...] [address] [facility] [id number] 0 03/09 Immun oglob ulin measu remen [...] Guzmán * [facility] , [facility] [address] [id number] 0 03/09 Immun oglob ulin measu remen t IgM, quant mg/dL 35.0 242.0 91.00 Test performed at [facility] on a Binding Site Optilite Analyzer that uses a turbidime tric method for analysis. Patient testing should not be performed using multiple methodolo gies due to analytica l variation seen between test methodolo gies. FINAL Marlene Guzmán * [facility] , [facility] [address] [id number] 0 03/09 Total prote in g/dL 6.3 8.2 7.1 FINAL Marlene Guzmán * [facility] , [facility] [address] [place] [address] [id number] 0 03/09 Album in, SPE g/dL 3.31 5.31 4.70 FINAL Marlene Guzmán * [facility] , [facility] [address] [id number] 0 03/09 Alpha -1 globu tony g/dL 0.19 0.42 0.23 FINAL Marlene Guzmán * [facility] , [facility] [address] [id number] 0 03/09 Alpha -2 globu tony g/dL 0.44 1.03 0.52 FINAL Marlene Guzmán * [facility] , [facility] [address] [id number] 0 03/09 Beta globu tony g/dL 0.52 1.05 0.80 FINAL Marlene Guzmán * [facility] , [address] [facility] [address] [id number] 0 03/09 Gamma globu tony g/dL 0.59 1.46 0.85 FINAL Marlene Guzmán * [facility] , [address] [id number] 0 03/09 Elect Gemma layton in Lab resul t note Previou sly identif ied parapro teins detecte d in gamma region. Is now 0.3 and 0.4 gm/dL. Interpr eted and signed by Luis Guillermo MD on 025 FINAL Marlene Guzmán * [facility] , [facility] [id number] 03/09 M-spi ke, SPE, g/dL g/dL 0.0 0.0 0.3 High FINAL Marlene Guzmán * [facility] , [address] [id number] 03/09 M-spi ke 2, SPE g/dL 0.0 0.0 0.4 High FINAL Marlene Guzmán * [facility] , [address] [id number] 04/03 Misc other lab See fuel quality tech d Medications Date Name Route Dose Frequency [...] 70 04/10/2025 BMI 53.23 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 History of Present Illness (Lab Tester Oncology): 63 y.o.?? 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 Genetic Testing (Lab Tester Oncology): Interval History (Lab Tester Oncology) She is crying??when I walk in [...] Hysteroscopy with myosure, D & C 06/28/23 bar tender History: - 3 , 1 SAb [...] 50 mg tablet daily 75 mg * [place] (Hydrocodone-Acetaminophen Oral 5 mg-325 mg) 5-325 mg [...] BSA: 2.37, BMI: 48.36 kg/m2 Physical Exam (Lab Tester Oncology): General:?? Anxious, , female tearful??throughout visit. [...] record:05/23/2019 Last record:05/23/2019; ) Assessment & Plan (Lab Tester Oncology): 63?? y.o. with abnormal uterine bleeding/PMB [...]
--- OUTSIDE RECORDS SUMMARY | 2025-07-06 23:35 | XMS_ITS ---
Author Name Interface, [id number] lity Address [address] [facility] [address] [place] [address] [facility] Oncology Address [address] [facility] [address] [place] [address] Support Name Relationship Address Phone Greg Henry [...] [facility] [place] other lab See buckle attacher d 11/08 [facility] other lab See buckle attacher d 11/22 Color (ua) Yellow FINAL Hafsa Bud [place] [facility] [place], [address] [facility] [address] [place] [phone] Phone: () - 11/22 Appea ying (ua) Clear FINAL Hafsaanabel Rubi a [facility] - [place], [address] [place] [address] [address] [place] [phone] Phone: () - 11/22 Gluco se (ua), qual 500.0% Abnor mal FINAL Hafsaanabel Rbui a [facility] - [place], [address] [place] [address] 210 [place] [phone] 0 Phone: () - 11/22 Bilir ubin (ua) Negativ e FINAL Hafsaanabel Rubi a [facility] - [place], [address] [place] [address] [address] [place] [phone] Phone: () - 11/22 Urina lysis , aceto ne or keton e chapo s measu remen t Negativ e FINAL Hafsaanabel Rubi a [facility] - [place], [address] [place] [address] 210 [place] [phone] Phone: () - 11/22 Speci fic gravi ty (ua) 1.005 1.02 1.025% Abnor mal FINAL Hafsaanabel Rubi a [facility] - [place], [address] [place] [address] 210 [place] [phone] 0 Phone: () - 11/22 Blood (ua) Negativ e FINAL Hafsaanabel Rubi a [facility] - [place], [address] [place] [address] 210 [place] [phone] 0 Phone: () - 11/22 pH (ua) 5.0 8.0 6.0% FINAL Hafsaanabel [place] [facility] - [place], [address] [place] [address] 210 [place] [phone] 0 Phone: () - 11/22 Prote in (ua) Negativ e FINAL Hafsaanabel Rubi a [facility] - [place], [address] [place] [address] 210 [place] [phone] 0 Phone: () - 11/22 Urobi linog en (ua) 0.2 1.0 0.2% FINAL Hafsaanabel [facility] - [place], [address] [place] [address] 210 [facility] [phone] 0 Phone: () - 11/22 Nitri te (ua) Negativ e FINAL Hafsa Rubi a [facility], [address] [place] [address] 210 [facility] [phone] 0 Phone: () - 11/22 Leuko cyte jerson ase (ua), qual Negativ e FINAL Hafsa Rubi [facility], [address] [place] [address] [phone] Phone: () - 11/22 UA comme nt 1 Dipstic k negativ e- Culture ordered per provide r FINAL Hafsa Rubi [facility], [address] [place] [address] [phone] Phone: () - 11/22 Urine cultu re panel CULTU RE, URINE , ROUTI NE SEE NOTE Abnor mal 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 FINAL Hafsaanabel Farrell [facility] [address] [facility] [id number] 4 12/18 [facility] other lab See d 04/18 Total prote in g/dL 6.3 8.2 6.9 FINAL Marlene Guzmán * [facility], [facility] [address] [place] [address] [id number] 0 04/18 Album in, SPE g/dL 3.31 5.31 3.97 FINAL Marlene Guzmán * [facility], [facility] [address] [place] [address] [id number] 0 04/18 Alpha -1 globu tony g/dL 0.19 0.42 0.26 FINAL Marlene Guzmán * [facility], [address] [id number] 0 04/18 Alpha -2 globu tony g/dL 0.44 1.03 0.63 FINAL Marlene Guzmán * [facility], [address] [id number] 0 04/18 Beta globu tony g/dL 0.52 1.05 0.95 FINAL Marlene Guzmán * [facility], [address] [id number] 0 04/18 Gamma globu tony g/dL 0.59 1.46 1.10 FINAL Marlene Guzmán * [facility], [facility] [address] [place] [address] [id number] 0 04/18 Elect abiola jackson Gemma in Lab resul t note Previou sly identif ied parapro teins detecte d in gamma region. Were 0.3 and 0.4 gm/dL, now 0.3 and 0.3 gm/dL. Interpr eted and signed by Adrienne Swanson MD on 024 FINAL Marlene Guzmán * [facility], [facility] [address] [place] [address] [id number] 0 04/18 M-spi ke, SPE, g/dL g/dL 0.0 0.0 0.3 High FINAL Marlene Guzmán * [facility], [address] [facility] [address] [id number] 0 04/18 M-spi ke 2, SPE g/dL 0.0 0.0 0.3 High FINAL Marlene Guzmán * [facility], [facility] [address] [place] [address] [id number] 04/18 Immun oglob ulin measu remen t IgG, quant mg/dL 610.0 1616.0 946.67 Test performed at [facility] on a Binding Site Optilite Analyzer that uses a turbidime tric method for analysis. Patient testing should not be performed using multiple methodreal gikim due to analytica l variation seen between test methodreal rocha. FINAL Marlene Guzmán * [facility] [address] [place] [address] [id number] 0 04/18 Immun oglob ulin measu remen t IgA, quant mg/dL 61.0 348.0 493.08 High Test performed at [facility] on a Binding Site Optilite Analyzer that uses a turbidime tric method for analysis. Patient testing should not be performed using multiple methodolo gies due to analytica l variation seen between test methodolo gies. FINAL Marlene Stroud [facility] [address] [place] [address] [id number] 0 04/18 Immun oglob ulin measu remen t IgM, quant mg/dL 35.0 242.0 75.62 Test performed at [facility] on a Binding Site Optilite Analyzer that uses a turbidime tric method for analysis. Patient testing should not be performed using multiple methodolo gies due to analytica l variation seen between test methodolo gies. FINAL Marlene Stroud [facility] a [address] [place] [address] [id number] 0 04/18 Free kappa / lambd a with K/L ratio , serum [place] light chain , free, serum , mg/dL mg/dL 0.33 1.94 3.62 High Test performed at [facility] on a Binding Site Optilite Analyzer that uses a turbidime tric method for analysis. Patient testing should not be performed using multiple methodolo gies due to analytica l variation seen between test methodolo gies. FINAL Marleen Guzmán * Jann a [address] [place] [address] [id number] 0 04/18 Free kappa / lambd a [...] gies. FINAL Marlene Stroud [facility] [address] [place] [address] [id number] 0 04/18 Free kappa / lambd a with K/L ratio , serum K/L light chain ratio , free, serum 0.26 1.65 1.16% FINAL Marlene Guzmán * [place] [facility] [place], [address] [facility] [place] [id number] 0 04/18 CBC w/ auto diff WBC K/uL 3.0 8.9 7.0 FINAL Marlene [facility] [facility] - [place], [address] [place] [id number] 0 Phone: () - 04/18 CBC w/ auto diff HGB g/dL 11.3 15.2 14.0 FINAL Marlene Rubi a [facility] - [place], [address] [place] [id number] 0 Phone: () - 04/18 CBC w/ auto diff PLT K/uL 113.0 364.0 164 FINAL Marlene Rubi a [facility] - [place], [address] [place] [id number] 0 Phone: () - 04/18 CBC w/ auto diff Tammy # (ANC) K/uL 1.6 6.6 4.5 FINAL Marlene pagan [facility] - [place], [address] [place] [id number] 0 Phone: () - 04/18 CBC w/ auto diff Tammy % % 43.0 74.0 64.0 FINAL Marlene pagan [facility] - [place], [address] [place] [id number] 0 Phone: () - 04/18 CBC w/ auto diff IG % % 0.0 0.5 0.3 FINAL Marlene Rubi a [facility] - [place], [address] [place] [id number] 0 Phone: () - 04/18 CBC w/ auto diff IG # K/uL 0.0 0.03 0.02 FINAL Marlene Rubi a [facility] - [place], [address] [place] [id number] 0 Phone: () - 04/18 CBC w/ auto diff LY % % 14.0 41.0 28.2 FINAL Marlene pagan [facility] - [place], [address] [place] [id number] 0 Phone: () - 04/18 CBC w/ auto diff MO % % 6.0 15.0 6.0 FINAL Marlene pagan [facility] - [place], [address] [place] [id number] 0 Phone: () - 04/18 CBC w/ auto diff EO % % 0.0 7.0 1.1 FINAL Marlene pagan [facility] - [place], [address] [place] [id number] 0 Phone: () - 04/18 CBC w/ auto diff BA % % 0.0 2.0 0.4 FINAL Marlene pagan [facility] - [place], [address] [place] [id number] 0 Phone: () - 04/18 CBC w/ auto diff LY # K/uL 0.4 3.6 2.0 FINAL Marlene pagan [facility] - [place], [address] [place] [id number] 0 Phone: () - 04/18 CBC w/ auto diff MO # K/uL 0.2 1.3 0.4 FINAL Marlene apgan [facility] - [place], [address] [place] [id number] 0 Phone: () - 04/18 CBC w/ auto diff EO # K/uL 0.0 0.6 0.1 FINAL Marlene pagan [facility] - [place], [address] [place] [id number] 0 Phone: () - 04/18 CBC w/ auto diff BA # K/uL 0.0 0.2 0.0 FINAL Marlene pagan [facility] - [place], [address] [place] [id number] 0 Phone: () - 04/18 CBC w/ auto diff NRBC % #/100W BC 0.0 0.2 0.0 FINAL Marlene [place] [facility] - [place], [address] [place] [id number] 0 Phone: () - 04/18 CBC w/ auto diff RBC M/uL 3.9 5.1 4.84 FINAL Marlene [facility] - [place], [address] [place] [id number] 0 Phone: () - 04/18 CBC w/ auto diff HCT % 35.0 48.0 40.4 FINAL Marlene Ramirez [facility] - [place], [address] [place] [id number] 0 Phone: () - 04/18 CBC w/ auto diff MCV fL 80.0 104.0 83.5 FINAL Marlene Ramirez Jann[facility] - [place], [address] [place] [id number] 0 Phone: () - 04/18 CBC w/ auto diff MCH pg 26.0 35.0 28.9 FINAL Marlene Guzmán [facility] - [place], [address] [place] [id number] 0 Phone: () - 04/18 CBC w/ auto diff MCHC g/dL 30.0 35.0 34.7 FINAL Marlene Guzmán [facility] - [place], [address] [place] [id number] 0 Phone: () - 04/18 CBC w/ auto diff MPV fL 9.5 13.4 9.7 FINAL Marlene Guzmán [facility] - [place], [address] [place] [id number] 0 Phone: () - 04/18 CBC w/ auto diff RDW % 11.4 16.1 13.80 FINAL Marlene Guzmán [place] [facility] [place], [address] [facility] [place] [id number] 0 Phone: ( 04/18 CMP Album in g/dL 3.5 5.0 4.0 FINAL Marlene Guzmán * [place] [facility] [place], [address] [facility] [id number] 0 04/18 CMP Alkal ine phosp hatas e U/L 36.0 125.0 105 FINAL Marlene Guzmán * [facility] [facility], [address] [facility] [id number] 0 04/18 CMP ALT/S GPT U/L 0.0 34.0 35 High FINAL Marlene Guzmán * [place] [facility], [address] [facility] [id number] 0 04/18 CMP AST/S GOT U/L 14.0 36.0 44 High FINAL Marlene Guzmán * [place] [facility], [address] [facility] [id number] 0 04/18 CMP BUN mg/dL 7.0 17.0 21.0 High FINAL Marlene Guzmán * [place] [facility], [address] [facility] [id number] 0 04/18 CMP Calci um mg/dL 8.4 10.2 8.8 FINAL Marlene Guzmán * [place] [facility], [address] [facility] [id number] 0 04/18 CMP Chlor nilson mmol/L 96.0 107.0 106 FINAL Marlene Guzmán * [place] [facility], [address] [facility] [id number] 0 04/18 CMP CO2 mmol/L 22.0 30.0 [...] 96 hour stability window. FINAL Marlene Stroud [facility] [address] [id number] 0 04/18 CMP Creat inine mg/dL 0.66 1.25 0.70 FINAL Marlene Guzmán * [facility], [address] [place] [address] [id number] 0 04/18 CMP GFR estim ate ml/min /1.73m ^2 97.7 GFR is calculate d using the CKD-EPI equation. FINAL Marlene Stroud [facility], [facility] [address] [id number] 0 04/18 CMP Gluco se mg/dL 74.0 100.0 267 High FINAL Marlene Stroud [facility], [facility] [address] [place] [address] [id number] 0 04/18 CMP Potas sium mmol/L 3.5 5.1 4.0 FINAL Marlene Stroud [facility] [address] [id number] 0 04/18 CMP Sodiu m mmol/L 137.0 145.0 136 Low FINAL Marlene Stroud [facility] [address] [id number] 0 04/18 CMP Bilir ubin, total mg/dL 0.2 1.3 1.0 FINAL Marlene [facility]oud [facility], [address] [facility] [address] [id number] 0 04/18 CMP Total prote in g/dL 6.3 8.2 7.3 FINAL Marlene Guzmán * [place] [facility] [place], [address] [facility] [address] [id number] 0 04/18 [facility] other lab See buckle attacher d 12/20 [facility] other lab See buckle attacher d 12/20 [facility] other lab See buckle attacher d 03/09 Free kappa / lambd a with K/L ratio , serum [place] light chain , free, serum , mg/dL mg/dL 0.33 1.94 4.35 High Test performed at [facility] on a Binding Site Optilite Analyzer that uses a turbidime tric method for analysis. Patient testing should not be performed using multiple methodolo gies due to analytica l variation seen between test methodolo gies. FINAL Marlene Guzmán * [facility] , [address] [facility] [address] [id number] 0 03/09 Free kappa / lambd a [...] methodolo gies. FINAL Marlene Guzmán * [facility] , [address] [facility] [address] [id number] 0 03/09 Free kappa / lambd a with K/L ratio , serum K/L light chain ratio , free, serum 0.26 1.65 1.14% FINAL Marlene Guzmán * [facility] , [address] [facility] [address] [id number] 0 03/09 CMP Album in g/dL 3.5 5.0 3.8 FINAL Marlene Guzmán * [facility] , [address] [facility] [id number] 0 03/09 CMP Alkal ine phosp hatas e U/L 36.0 125.0 106 FINAL Marleneanabel Guzmán * [facility] , [address] [facility] [id number] 0 03/09 CMP ALT/S GPT U/L 0.0 34.0 37 High FINAL Marlene Guzmán * [facility] , [address] [facility] [id number] 0 03/09 CMP AST/S GOT U/L 14.0 36.0 36 FINAL Marlene Guzmán * [facility] , [address] [facility] [id number] 0 03/09 CMP BUN mg/dL 7.0 17.0 18.0 High FINAL Marlene Guzmán * [facility] , [address] [facility] [id number] 0 03/09 CMP Calci um mg/dL 8.4 10.2 8.9 FINAL Marleneanabel Guzmán * [facility] , [address] [facility] [id number] 0 03/09 CMP Chlor nilson mmol/L 96.0 107.0 99 FINAL Marleneanabel Guzmán * [facility] , [address] [facility] [id number] 0 03/09 CMP CO2 mmol/L 22.0 30.0 [...] stability window. FINAL Marleneanabel Guzmán * [facility] , [address] [facility] [address] [facility] [id number] 0 03/09 CMP Creat inine mg/dL 0.66 1.25 0.70 FINAL Marleneanabel Guzmán * [facility] , [address] [facility] [address] [facility] [id number] 0 03/09 CMP GFR estim ate ml/min /1.73m ^2 97.1 GFR is calculate d using the CKD-EPI equation. FINAL Marleneanabel Guzmán * [facility] , [address] [facility] [address] [facility] [id number] 0 03/09 CMP Gluco se mg/dL 74.0 100.0 363 Criti sami High FINAL Marlene Guzmán * [facility] , [address] [facility] [address] [facility] [id number] 0 03/09 CMP Potas sium mmol/L 3.5 5.1 3.9 FINAL Marlene Ramirez * [facility] , [address] [facility] [address] [facility] [id number] 0 03/09 CMP Sodiu m mmol/L 137.0 145.0 134 Low FINAL Marleneanabel Guzmán * [facility] , [address] [facility] [facility] [address] [facility] [id number] 0 03/09 CMP Bilir ubin, total mg/dL 0.2 1.3 1.1 FINAL Marleneanabel Guzmán * [facility] , [address] [facility] [address] [facility] [id number] 0 03/09 CMP Total prote in g/dL 6.3 8.2 7.3 FINAL Marlene Guzmán * [facility] , [address] [facility] [facility] [address] [facility] [id number] 0 03/09 CBC w/ auto diff WBC K/uL 3.0 8.9 7.1 FINAL Marlene Guzmán [place] [facility] , [address] [place] [id number] 0 03/09 CBC w/ auto diff HGB g/dL 11.3 15.2 14.4 FINAL Marlene Guzmán [place] [facility] , [address] [place] [id number] 0 03/09 CBC w/ auto diff PLT K/uL 113.0 364.0 179 FINAL Marlene Guzmán [place] [facility] , [address] [place] [id number] 0 03/09 CBC w/ auto diff Tammy # (ANC) K/uL 1.6 6.6 4.7 FINAL Marlene Guzmán [facility] [place] [facility] , [address] [place] [id number] 0 03/09 CBC w/ auto diff Tammy % % 43.0 74.0 65.7 FINAL Marlene Guzmán [place] [facility] , [address] [place] [id number] 0 03/09 CBC w/ auto diff IG % % 0.0 0.5 0.6 High FINAL Marlene Guzmán [place] [facility] , [address] [place] [id number] 0 03/09 CBC w/ auto diff IG # K/uL 0.0 0.03 0.04 High FINAL Marlene Guzmán [place] [facility] , [address] [place] [id number] 0 03/09 CBC w/ auto diff LY % % 14.0 41.0 25.8 FINAL Marlene Guzmán [place] [facility] , [address] [place] [id number] 0 03/09 CBC w/ auto diff MO % % 6.0 15.0 6.2 FINAL Marlene Guzmán [place] [facility] , [address] [place] [id number] 0 03/09 CBC w/ auto diff EO % % 0.0 7.0 1.1 FINAL Marlene Guzmán [place] [facility] , [address] [place] [id number] 0 03/09 CBC w/ auto diff BA % % 0.0 2.0 0.6 FINAL Marlene Guzmán [place] [facility] , [address] [place] [id number] 0 03/09 CBC w/ auto diff LY # K/uL 0.4 3.6 1.8 FINAL Marlene Guzmán [place] [facility] , [address] [place] [id number] 0 03/09 CBC w/ auto diff MO # K/uL 0.2 1.3 0.4 FINAL Marlene Guzmán [place] [facility] , [address] [place] [id number] 0 03/09 CBC w/ auto diff EO # K/uL 0.0 0.6 0.1 FINAL Marlene Guzmán [place] [facility] , [address] [place] [id number] 0 03/09 CBC w/ auto diff BA # K/uL 0.0 0.2 0.0 FINAL Marlene Guzmán [place] [facility] , [address] [place] [id number] 0 03/09 CBC w/ auto diff NRBC % #/100W BC 0.0 0.2 0.0 FINAL Marlene Guzmán [place] [facility] , [address] [place] [id number] 0 03/09 CBC w/ auto diff RBC M/uL 3.9 5.1 5.08 FINAL Marlene Guzmán [place] [facility] , [address] [place] [id number] 0 03/09 CBC w/ auto diff HCT % 35.0 48.0 42.9 FINAL Marlene Guzmán [facility] [place] [facility] , [address] [place] [id number] 0 03/09 CBC w/ auto diff MCV fL 80.0 104.0 84.4 FINAL Marlene Guzmán [facility] - [place] [facility] , [address] [place] [id number] 0 03/09 CBC w/ auto diff MCH pg 26.0 35.0 28.3 FINAL Marlene Guzmán [facility] [place] [facility] , [address] [place] [id number] 0 03/09 CBC w/ auto diff MCHC g/dL 30.0 35.0 33.6 FINAL Marlene Guzmán [facility] [place] [facility] , [address] [place] [id number] 0 03/09 CBC w/ auto diff MPV fL 9.5 13.4 9.6 FINAL Marlene Guzmán [place] [facility] , [address] [place] [id number] 0 03/09 CBC w/ auto diff RDW % 11.4 16.1 14.20 FINAL Marlene Guzmán [facility] , [address] [facility] [id number] 0 03/09 Total prote in g/dL 6.3 8.2 7.1 FINAL Marlene Guzmán * [facility] , [address] [facility] [address] [facility] [id number] 0 03/09 Album in, SPE g/dL 3.31 5.31 4.70 FINAL Marlene Guzmán * [facility] , [address] [facility] [address] [id number] 0 03/09 Alpha -1 globu tony g/dL 0.19 0.42 0.23 FINAL Marlene Guzmán * [facility] , [address] [facility] [address] [id number] 0 03/09 Alpha -2 globu tony g/dL 0.44 1.03 0.52 FINAL Marlene Guzmán * [facility] , [address] [facility] [address] [id number] 0 03/09 Beta globu tony g/dL 0.52 1.05 0.80 FINAL Marlene Guzmán * [facility] , [address] [facility] [facility] [address] [id number] 0 03/09 Gamma globu tony g/dL 0.59 1.46 0.85 FINAL Marlene Guzmán * [facility] , [address] [id number] 0 03/09 Gemma Rodriguez in Lab resul t note Previou sly identif ied parapro teins detecte d in gamma region. Is now 0.3 and 0.4 gm/dL. Interpr eted and signed by Luis Guillermo MD on 025 FINAL Marlene Guzmán * [facility] , [address] [facility] [id number] 0 03/09 M-spi ke, SPE, g/dL g/dL 0.0 0.0 0.3 High FINAL Marlene Guzmán * [facility] , [address] [facility] [id number] 0 03/09 M-spi ke 2, SPE g/dL 0.0 0.0 0.4 High FINAL Marlene Guzmán * [facility] , [address] [facility] [id number] 0 03/09 Immun oglob ulin measu remen t IgG, quant mg/dL 610.0 1616.0 1080.49 Test performed at [facility] on a Binding Site Optilite Analyzer that uses a turbidime tric method for analysis. Patient testing should not be performed using multiple methodolo gies due to analytica l variation seen between test methodolo gies. FINAL Marlene Guzmán * [facility] , [address] [facility] [id number] 0 03/09 Immun oglob ulin measu remen t IgA, quant mg/dL 61.0 348.0 577.26 High Test performed at [facility] on a Binding Site Optilite Analyzer that uses a turbidime tric method for analysis. Patient testing should not be performed using multiple methodolo gies due to analytica l variation seen between test methodolo gies. FINAL Marlene Guzmán * [facility] , [address] [facility] [id number] 0 03/09 Immun oglob ulin measu remen t IgM, quant mg/dL 35.0 242.0 91.00 Test performed at [facility] on a Binding Site Optilite Analyzer that uses a turbidime tric method for analysis. Patient testing should not be performed using multiple methodolo gies due to analytica l variation seen between test methodolo josefina. FINAL Marlene Guzmán * [facility] , [address] [facility] [id number] 0 04/03 [facility] [...] 04/10/2025 Body Temperature 97.50 Notes Section * DEPUTY FIRE CHIEF Onc Consult Note (Amended) GYNECOLOGIC ONCOLOGY CONSULT Patient Name: VERO HENRY Patient : 1960 Patient Referring Physician: Malissa Hernandez MD (DIRECTOR OF PHYSICAL THERAPY) Primary GYNOncologist: Marlene Guzmán (Hematology/Oncology) Date of Service: 08/03/2023 Reason for Consult: I was asked by Dr. Malissa Hernandez to see eVro Henry in regard to a recent diagnosis of EIN/CAH. History of Present Illness ([employer]): 63 y.o.?? * Presented with c/o [...] with myosure * Pathology:?? 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 Anxious, , female with somewhat [...] record:05/23/2019 Last record:05/23/2019; ) Assessment & Plan ([employer] [facility]): 63?? y.o. with abnormal uterine bleeding/PMB [...] signed by Abbie Gallo MD 08/03/2023 12:46 [facility] [facility]
[2025-07-06 23:36] LABS: Albumin* 4.0 g/dL (3.3-5.0); Potassium* 4.0 mmol/L (3.6-5.1); Sodium* 135 mmol/L (135-149)
--- OUTSIDE RECORDS SUMMARY | 2025-07-06 23:36 | XMS_ITS ---
Author Name Interface, [id number] lity Address [address] [facility] [address] [place] [address] [facility] Address [address] [facility] [address] [place] [address] Support Name Relationship Address Phone Greg Henry [...] Ordered By Specimen Source Lab Address 11/05 [facility] other lab See belt cleaner d 11/08 [facility] other lab See belt cleaner d 11/22 Color (ua) Yellow FINAL Hafsa Bud [place] [facility] [place], [address] [facility] [address] [place] [phone] 0 Phone: () - 11/22 Appea ying (ua) Clear FINAL Hafsaanabel Rubi [facility] - [place], [address] [place] [address] [address] [place] [phone] Phone: () - 11/22 Gluco se (ua), qual 500.0% Abnor mal FINAL Hafsaanabel [facility] - [place], [address] [place] [address] [address] [place] [phone] 0 Phone: () - 11/22 Bilir ubin (ua) Negativ e FINAL Hafsaanabel [facility]i [facility] - [place], [address] [place] [address] [address] [place] [phone] Phone: () - 11/22 Urina lysis , aceto ne or keton e chapo s measu remen t Negativ e FINAL Hafsaanabel [facility] - [place], [address] [place] [address] [address] [place] [phone] Phone: () - 11/22 Speci fic gravi ty (ua) 1.005 1.02 1.025% Abnor mal FINAL Hafsaanabel Rubi [facility] - [place], [address] [place] [address] [address] [place] [phone] Phone: () - 11/22 Blood (ua) Negativ e FINAL Hafsaanabel [facility]i [facility] - [place], [address] [place] [address] [address] [place] [phone] 0 Phone: () - 11/22 pH (ua) 5.0 8.0 6.0% FINAL Hafsaanabel [place] [facility] [place], [address] [place] [address] [address] [place] [phone] 0 Phone: () - 11/22 Prote in (ua) Negativ e FINAL Hafsaanabel Rubi [facility] - [place], [address] [place] [address] [address] [place] [phone] 0 Phone: () - 11/22 Urobi linog en (ua) 0.2 1.0 0.2% FINAL [facility]afsaanabel [facility] [place], [address] [place] [address] [facility] [phone] Phone: () - 11/22 Nitri te (ua) Negativ e FINAL Hafsa Rubi a [facility], [address] [place] [address] 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 FINAL Hafsaanabel Farrell [facility] [address] [facility] [id number] 4 12/18 [facility] other lab See d 04/18 Total prote in g/dL 6.3 8.2 6.9 FINAL Marlene Guzmán * [facility], [facility] [address] [place] [address] [id number] 0 04/18 Album in, SPE g/dL 3.31 5.31 3.97 FINAL Marlene Guzmán * [facility], [facility] [address] [address] [place] [address] [id number] 0 04/18 Alpha -1 globu tony g/dL 0.19 0.42 0.26 FINAL Marlene Guzmán * [facility], [address] [id number] 0 04/18 Alpha -2 globu tony g/dL 0.44 1.03 0.63 FINAL Marlene Guzmán * [facility], [address] [id number] 04/18 Beta globu tony g/dL 0.52 1.05 0.95 FINAL Marlene Guzmán * [facility], [address] [id number] 04/18 Gamma globu tony g/dL 0.59 1.46 1.10 FINAL Marlene Guzmán * [facility], [facility] [address] [place] [address] [id number] 0 04/18 Elect abiola jackson Gemma in Lab resul t note Previou sly identif ied parapro teins detecte d in gamma region. Were 0.3 and 0.4 gm/dL, now 0.3 and 0.3 gm/dL. Interpr eted and signed by Adrienne Swanson MD on 024 FINAL Marlene Guzmán * [facility], [facility] [address] [place] [address] [id number] 0 04/18 M-spi ke, SPE, g/dL g/dL 0.0 0.0 0.3 High FINAL Marlene Guzmán * [facility], [address] [facility] [address] [id number] 04/18 M-spi ke 2, SPE g/dL 0.0 0.0 0.3 High FINAL Marlene Guzmán * [facility], [facility] [address] [place] [address] [id number] 0 04/18 Immun oglob ulin measu remen t IgG, quant mg/dL 610.0 1616.0 946.67 Test performed at [facility] on a Binding Site Optilite Analyzer that uses a turbidime tric method for analysis. Patient testing should not be performed using multiple methodreal gikim due to analytica l variation seen between test methodreal rocha. FINAL Marlene Guzmán * [facility] [address] [place] [address] [id number] 0 04/18 Immun oglob ulin measu remen t IgA, quant mg/dL 61.0 348.0 493.08 High Test performed at [facility] on a Binding Site Optilite Analyzer that uses a turbidime tric method for analysis. Patient testing should not be performed using multiple methodolo gies due to analytica l variation seen between test methodolo gies. FINAL Marlene Stroud [facility] [address] [place] [address] [id number] 0 04/18 Immun oglob ulin measu remen t IgM, quant mg/dL 35.0 242.0 75.62 Test performed at [facility] on a Binding Site Optilite Analyzer that uses a turbidime tric method for analysis. Patient testing should not be performed using multiple methodolo gies due to analytica l variation seen between test methodolo gies. FINAL Marlene Stroud [facility] a [address] [place] [address] [id number] 0 04/18 Free kappa / lambd a with K/L ratio , serum [place] light chain , free, serum , mg/dL mg/dL 0.33 1.94 3.62 High Test performed at [facility] on a Binding Site Optilite Analyzer that uses a turbidime tric method for analysis. Patient testing should not be performed using multiple methodolo gies due to analytica l variation seen between test methodolo gies. FINAL Marlene Guzmán * Jann a [address] [place] [address] [id number] 0 04/18 Free kappa / lambd a with K/L ratio , serum [place]d [place] light chain , free, serum , mg/dL mg/dL 0.57 2.63 3.13 High Test performed at [facility] on a Binding Site Optilite Analyzer that uses a turbidime tric method for analysis. Patient testing should not be performed using multiple methodolo gies due to analytica l variation seen between test methodolo gies. FINAL Marlene Stroud [facility] [address] [place] [address] [id number] 0 04/18 Free kappa / lambd a with K/L ratio , serum K/L light chain ratio , free, serum 0.26 1.65 1.16% FINAL Marlene Guzmán * [place] [facility] [place], [address] [facility] [place] [id number] 0 04/18 CBC w/ auto diff WBC K/uL 3.0 8.9 7.0 FINAL Marlene [facility] [facility] - [place], [address] [place] [id number] 0 Phone: () - 04/18 CBC w/ auto diff HGB g/dL 11.3 15.2 14.0 FINAL Marlene Rubi a [facility] - [place], [address] [place] [id number] 0 Phone: () - 04/18 CBC w/ auto diff PLT K/uL 113.0 364.0 164 FINAL Marlene Rubi a [facility] - [place], [address] [place] [id number] 0 Phone: () - 04/18 CBC w/ auto diff Tammy # (ANC) K/uL 1.6 6.6 4.5 FINAL Marlene pagan [facility] - [place], [address] [place] [id number] 0 Phone: () - 04/18 CBC w/ auto diff Tammy % % 43.0 74.0 64.0 FINAL Marlene pagan [facility] - [place], [address] [place] [id number] 0 Phone: () - 04/18 CBC w/ auto diff IG % % 0.0 0.5 0.3 FINAL Marlene Rubi a [facility] - [place], [address] [place] [id number] 0 Phone: () - 04/18 CBC w/ auto diff IG # K/uL 0.0 0.03 0.02 FINAL Marlene Rubi a [facility] - [place], [address] [place] [id number] 0 Phone: () - 04/18 CBC w/ auto diff LY % % 14.0 41.0 28.2 FINAL Marlene pagan [facility] - [place], [address] [place] [id number] 0 Phone: () - 04/18 CBC w/ auto diff MO % % 6.0 15.0 6.0 FINAL Marlene pagan [facility] - [place], [address] [place] [id number] 0 Phone: () - 04/18 CBC w/ auto diff EO % % 0.0 7.0 1.1 FINAL Marlene pagan [facility] - [place], [address] [place] [id number] 0 Phone: () - 04/18 CBC w/ auto diff BA % % 0.0 2.0 0.4 FINAL Marlene pagan [facility] - [place], [address] [place] [id number] 0 Phone: () - 04/18 CBC w/ auto diff LY # K/uL 0.4 3.6 2.0 FINAL Marlene pagan [facility] - [place], [address] [place] [id number] 0 Phone: () - 04/18 CBC w/ auto diff MO # K/uL 0.2 1.3 0.4 FINAL Marlene pagan [facility] - [place], [address] [place] [id number] 0 Phone: () - 04/18 CBC w/ auto diff EO # K/uL 0.0 0.6 0.1 FINAL Marlene paagn [facility] - [place], [address] [place] [id number] 0 Phone: () - 04/18 CBC w/ auto diff BA # K/uL 0.0 0.2 0.0 FINAL Marlene pagan [facility] - [place], [address] [place] [id number] 0 Phone: () - 04/18 CBC w/ auto diff NRBC % #/100W BC 0.0 0.2 0.0 FINAL Marlene [place] [facility] - [place], [address] [place] [id number] 0 Phone: () - 04/18 CBC w/ auto diff RBC M/uL 3.9 5.1 4.84 FINAL Marlene [facility] [facility] - [place], [address] [place] [id number] 0 Phone: () - 04/18 CBC w/ auto diff HCT % 35.0 48.0 40.4 FINAL Marlene Ramirez [facility] - [place], [address] [place] [id number] 0 Phone: () - 04/18 CBC w/ auto diff MCV fL 80.0 104.0 83.5 FINAL Marlene Ramirez [facility] - [place], [address] [place] [id number] 0 Phone: () - 04/18 CBC w/ auto diff MCH pg 26.0 35.0 28.9 FINAL Marlene Guzmán [facility] - [place], [address] [place] [id number] 0 Phone: () - 04/18 CBC w/ auto diff MCHC g/dL 30.0 35.0 34.7 FINAL Marlene Guzmán [facility] - [place], [address] [place] [id number] 0 Phone: () - 04/18 CBC w/ auto diff MPV fL 9.5 13.4 9.7 FINAL Marlene Guzmán [facility] - [place], [address] [place] [id number] 0 Phone: () - 04/18 CBC w/ auto diff RDW % 11.4 16.1 13.80 FINAL Marlene Guzmán [place] [facility] [place], [address] [facility] [place] [phone] 0 Phone: ( 04/18 CMP Album in g/dL 3.5 5.0 4.0 FINAL Marlene Guzmán * [place] [facility] [place], [address] [facility] [id number] 0 04/18 CMP Alkal ine phosp hatas e U/L 36.0 125.0 105 FINAL Marlene Guzmán * [place] [facility], [address] [facility] [id number] 0 04/18 CMP ALT/S GPT U/L 0.0 34.0 35 High FINAL Marlene Guzmán * [place] [facility], [address] [facility] [id number] 0 04/18 CMP AST/S GOT U/L 14.0 36.0 44 High FINAL Marlene Guzmán * [place] [facility], [address] [facility] [id number] 0 04/18 CMP BUN mg/dL 7.0 17.0 21.0 High FINAL Marlene Guzmán * [place] [facility], [address] [facility] [id number] 0 04/18 CMP Calci um mg/dL 8.4 10.2 8.8 FINAL Marlene Guzmán * [place] [facility], [address] [facility] [id number] 0 04/18 CMP Chlor nilson mmol/L 96.0 107.0 106 FINAL Marlene Guzmán * [place] [facility], [address] [facility] [id number] 0 04/18 CMP CO2 mmol/L 22.0 30.0 [...] window. FINAL [facility]oud [facility] [address] [id number] 0 04/18 CMP Creat inine mg/dL 0.66 1.25 0.70 FINAL aMrlene Guzmán * [facility], [address] [place] [address] [id number] 0 04/18 CMP GFR estim ate ml/min /1.73m ^2 97.7 GFR is calculate d using the CKD-EPI equation. FINAL Marlene Stroud [facility], [facility] [address] [id number] 0 04/18 CMP Gluco se mg/dL 74.0 100.0 267 High FINAL Marlene Stroud [facility], [facility] [address] [place] [address] [id number] 0 04/18 CMP Potas sium mmol/L 3.5 5.1 4.0 FINAL Marlene Stroud [facility], [facility] [address] [id number] 04/18 CMP Sodiu m mmol/L 137.0 145.0 136 Low FINAL Marlene Stroud [facility] [address] [id number] 0 04/18 CMP Bilir ubin, total mg/dL 0.2 1.3 1.0 FINAL [facility]oud [facility], [address] [facility] [address] [id number] 0 04/18 CMP Total prote in g/dL 6.3 8.2 7.3 FINAL Marlene Guzmán * [place] [facility] [place], [address] [facility] [address] [id number] 0 04/18 [facility] other lab See belt cleaner d 12/20 [facility] other lab See belt cleaner d 12/20 [facility] other lab See belt cleaner d 03/09 Free kappa / lambd a with K/L ratio , serum [place] light chain , free, serum , mg/dL mg/dL 0.33 1.94 4.35 High Test performed at [facility] on a Binding Site Optilite Analyzer that uses a turbidime tric method for analysis. Patient testing should not be performed using multiple methodolo gies due to analytica l variation seen between test methodolo gies. FINAL Marlene Guzmán * [facility] , [address] [facility] [address] [id number] 0 03/09 Free kappa / lambd a with K/L ratio , serum [place] light chain , free, serum , mg/dL mg/dL 0.57 2.63 3.83 High Test performed at [facility] on a Binding Site Optilite Analyzer that uses a turbidime tric method for analysis. Patient testing should not be performed using multiple methodolo gies due to analytica l variation seen between test methodolo gies. FINAL Marlene Guzmán * [facility] , [address] [facility] [address] [id number] 0 03/09 Free kappa / lambd a with K/L ratio , serum K/L light chain ratio , free, serum 0.26 1.65 1.14% FINAL Marlene Guzmán * [facility] , [address] [facility] [address] [id number] 0 03/09 CMP Album in g/dL 3.5 5.0 3.8 FINAL Marlene Guzmán * [facility] , [address] [facility] [id number] 0 03/09 CMP Alkal ine phosp hatas e U/L 36.0 125.0 106 FINAL Marleneanabel Guzmán * [facility] , [address] [facility] [id number] 0 03/09 CMP ALT/S GPT U/L 0.0 34.0 37 High FINAL Marlene Guzmán * [facility] , [address] [facility] [id number] 0 03/09 CMP AST/S GOT U/L 14.0 36.0 36 FINAL Marlene Guzmán * [facility] , [address] [facility] [id number] 0 03/09 CMP BUN mg/dL 7.0 17.0 18.0 High FINAL Marlene Guzmán * [facility] , [address] [facility] [id number] 0 03/09 CMP Calci um mg/dL 8.4 10.2 8.9 FINAL Marleneanabel Guzmán * [facility] , [address] [facility] [id number] 0 03/09 CMP Chlor nilson mmol/L 96.0 107.0 99 FINAL Marleneanabel Guzmán * [facility] , [address] [facility] [id number] 0 03/09 CMP CO2 mmol/L 22.0 30.0 [...] hour stability window. FINAL Marleneanabel Guzmán * [facility] , [address] [facility] [address] [facility] [id number] 0 03/09 CMP Creat inine mg/dL 0.66 1.25 0.70 FINAL Marleneanabel Guzmán * [facility] , [address] [facility] [address] [facility] [id number] 0 03/09 CMP GFR estim ate ml/min /1.73m ^2 97.1 GFR is calculate d using the CKD-EPI equation. FINAL Marleneanabel Guzmán * [facility] , [address] [facility] [address] [facility] [id number] 0 03/09 CMP Gluco se mg/dL 74.0 100.0 363 Criti sami High FINAL Marlene Guzmán * [facility] , [address] [facility] [address] [facility] [id number] 0 03/09 CMP Potas sium mmol/L 3.5 5.1 3.9 FINAL Marlene Ramirez * [facility] , [address] [facility] [address] [facility] [id number] 0 03/09 CMP Sodiu m mmol/L 137.0 145.0 134 Low FINAL Marleneanabel Guzmán * [facility] , [address] [facility] [address] [facility] [id number] 0 03/09 CMP Bilir ubin, total mg/dL 0.2 1.3 1.1 FINAL Marleneanabel Guzmán * [facility] , [address] [facility] [address] [facility] [id number] 0 03/09 CMP Total prote in g/dL 6.3 8.2 7.3 FINAL Marlene Guzmán * [facility] , [address] [facility] [address] [facility] [id number] 0 03/09 CBC w/ auto diff WBC K/uL 3.0 8.9 7.1 FINAL Marlene Guzmán [place] [facility] [place] [facility] , [address] [place] [id number] 0 03/09 CBC w/ auto diff HGB g/dL 11.3 15.2 14.4 FINAL Marlene Guzmán [place] [facility] [place] [facility] , [address] [place] [id number] 0 03/09 CBC w/ auto diff PLT K/uL 113.0 364.0 179 FINAL Marlene Guzmán [place] [facility] [place] [facility] , [address] [place] [id number] 0 03/09 CBC w/ auto diff Tammy # (ANC) K/uL 1.6 6.6 4.7 FINAL Marlene Guzmán [facility] [place] [facility] , [address] [place] [id number] 0 03/09 CBC w/ auto diff Tammy % % 43.0 74.0 65.7 FINAL Marlene Guzmán [place] [facility] [place] [facility] , [address] [place] [id number] 0 03/09 CBC w/ auto diff IG % % 0.0 0.5 0.6 High FINAL Marlene Guzmán [place] [facility] [place] [facility] , [address] [place] [id number] 0 03/09 CBC w/ auto diff IG # K/uL 0.0 0.03 0.04 High FINAL Marlene Guzmán [place] [facility] [place] [facility] , [address] [place] [id number] 0 03/09 CBC w/ auto diff LY % % 14.0 41.0 25.8 FINAL Marlene Guzmán [place] [facility] [place] [facility] , [address] [place] [id number] 0 03/09 CBC w/ auto diff MO % % 6.0 15.0 6.2 FINAL Marlene Guzmán [place] [facility] [place] [facility] , [address] [place] [id number] 0 03/09 CBC w/ auto diff EO % % 0.0 7.0 1.1 FINAL Marlene Guzmán [place] [facility] [place] [facility] , [address] [place] [id number] 0 03/09 CBC w/ auto diff BA % % 0.0 2.0 0.6 FINAL Marlene Guzmán [place] [facility] [place] [facility] , [address] [place] [id number] 0 03/09 CBC w/ auto diff LY # K/uL 0.4 3.6 1.8 FINAL Marlene Guzmán [place] [facility] [place] [facility] , [address] [place] [id number] 0 03/09 CBC w/ auto diff MO # K/uL 0.2 1.3 0.4 FINAL Marlene Guzmán [place] [facility] [place] [facility] , [address] [place] [id number] 0 03/09 CBC w/ auto diff EO # K/uL 0.0 0.6 0.1 FINAL Marlene Guzmán [place] [facility] [place] [facility] , [address] [place] [id number] 0 03/09 CBC w/ auto diff BA # K/uL 0.0 0.2 0.0 FINAL Marlene Guzmán [place] [facility] [place] [facility] , [address] [place] [id number] 0 03/09 CBC w/ auto diff NRBC % #/100W BC 0.0 0.2 0.0 FINAL Marlene Guzmán [place] [facility] [place] [facility] , [address] [place] [id number] 0 03/09 CBC w/ auto diff RBC M/uL 3.9 5.1 5.08 FINAL Marlene Guzmán [place] [facility] , [address] [place] [id number] 0 03/09 CBC w/ auto diff HCT % 35.0 48.0 42.9 FINAL Marlene Guzmán [facility] [place] [facility] , [address] [place] [id number] 0 03/09 CBC w/ auto diff MCV fL 80.0 104.0 84.4 FINAL Marlene Guzmán [facility] - [place] [facility] , [address] [place] [id number] 0 03/09 CBC w/ auto diff MCH pg 26.0 35.0 28.3 FINAL Marlene Guzmán [facility] - [place] [facility] , [address] [place] [id number] 0 03/09 CBC w/ auto diff MCHC g/dL 30.0 35.0 33.6 FINAL Marlene Guzmán [facility] [place] [facility] , [address] [place] [id number] 0 03/09 CBC w/ auto diff MPV fL 9.5 13.4 9.6 FINAL Marlene Guzmán [place] [facility] , [address] [place] [id number] 0 03/09 CBC w/ auto diff RDW % 11.4 16.1 14.20 FINAL Marlene Guzmán [facility] , [address] [facility] [id number] 0 03/09 Total prote in g/dL 6.3 8.2 7.1 FINAL Marlene Guzmán * [facility] , [address] [facility] [address] [facility] [id number] 0 03/09 Album in, SPE g/dL 3.31 5.31 4.70 FINAL Marlene Guzmán * [facility] , [address] [facility] [address] [id number] 0 03/09 Alpha -1 globu tony g/dL 0.19 0.42 0.23 FINAL Marlene Guzmán * [facility] , [address] [facility] [address] [id number] 0 03/09 Alpha -2 globu tony g/dL 0.44 1.03 0.52 FINAL Marlene Guzmán * [facility] , [address] [facility] [address] [id number] 0 03/09 Beta globu tony g/dL 0.52 1.05 0.80 FINAL Marlene Guzmán * [facility] , [address] [facility] [address] [id number] 0 03/09 Gamma globu tony g/dL 0.59 1.46 0.85 FINAL Marlene Guzmán * [facility] , [address] [facility] [id number] 0 03/09 Gemma Rodriguez in Lab resul t note Previou sly identif ied parapro teins detecte d in gamma region. Is now 0.3 and 0.4 gm/dL. Interpr eted and signed by Luis Guillermo MD on 025 FINAL Marlene Guzmán * [facility] On[facility] , [address] [facility] [id number] 0 03/09 M-spi ke, SPE, g/dL g/dL 0.0 0.0 0.3 High FINAL Marlene Guzmán * [facility] Oncology , [address] [facility] [id number] 0 03/09 M-spi ke 2, SPE g/dL 0.0 0.0 0.4 High FINAL Marlene Guzmán * [facility] Oncology , [address] [facility] [id number] 0 03/09 Immun oglob ulin measu remen t IgG, quant mg/dL 610.0 1616.0 1080.49 Test performed at [facility] on a Binding Site Optilite Analyzer that uses a turbidime tric method for analysis. Patient testing should not be performed using multiple methodolo gies due to analytica l variation seen between test methodolo gies. FINAL Marlene Guzmán * [facility] Oncology , [address] [facility] [id number] 0 03/09 Immun oglob ulin measu remen t IgA, quant mg/dL 61.0 348.0 577.26 High Test performed at [facility] on a Binding Site Optilite Analyzer that uses a turbidime tric method for analysis. Patient testing should not be performed using multiple methodolo gies due to analytica l variation seen between test methodolo gies. FINAL Marlene Guzmán * [facility] Oncology , [address] [facility] [id number] 0 03/09 Immun oglob ulin measu remen t IgM, quant mg/dL 35.0 242.0 91.00 Test performed at [facility] on a Binding Site Optilite Analyzer that uses a turbidime tric method for analysis. Patient testing should not be performed using multiple methodolo gies due to analytica l variation seen between test methodolo josefina. FINAL Marlene Guzmán * [facility] Oncology , [address] [facility] [id number] 0 04/03 [facility] other lab See attache malave Medications Date [...] 04/10/2025 Body Temperature 97.50 Notes Section * [employer]PER[employer] Onc Consult Note (Amended) GYNECOLOGIC ONCOLOGY CONSULT Patient Name: VERO HENRY Patient : 1960 Patient Referring Physician: Malissa Hernandez MD (DOWEL PIN WORKER) Primary GYNOncologist: Marlene Guzmán (Hematology/Oncology) Date of Service: 08/03/2023 Reason for Consult: I was asked by Dr. Malissa Hernandez to see Vero Henry in regard to a recent diagnosis of EIN/CAH. 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 * Presented with c/o [...] with myosure * Pathology:?? 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 Anxious, , female with somewhat [...] record:05/23/2019 Last record:05/23/2019; ) Assessment & Plan (Trains Service Conductor Oncology): 63?? y.o. 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
--- OUTSIDE RECORDS SUMMARY | 2025-07-06 23:36 | XMS_ITS ---
Author Name Interface, [id number] lity Address [address] [facility] [address] [place] [address] [facility] Address [address] [facility] [address] [place] [address] Support Name Relationship Address Phone Greg Ch [...] FINAL [facility] [place], [address] [place] [address] 210 [facility] [phone] Phone: () - 11/22 Appea ying (ua) Clear FINAL [facility] [place], [address] [place] [address] 210 [facility] [phone] Phone: () - 11/22 Gluco se (ua), qual 500.0% Abnor mal FINAL [facility] [place], [address] [facility] 210 [facility] [phone] Phone: () - 11/22 Bilir ubin (ua) Negativ e FINAL [facility] [place], [address] [place] [address] 210 [facility] [phone] Phone: () - 11/22 Urina lysis , aceto ne or keton e chapo s measu remen t Negativ e FINAL [facility] [place], [address] [facility] 210 [place] [id number] [phone] Phone: () - 11/22 Speci fic gravi ty (ua) 1.005 1.02 1.025% Abnor mal FINAL [facility] [place], [address] [facility] 210 [place] [phone] 0 Phone: () - 11/22 Blood (ua) Negativ e FINAL [facility] [place], [address] [place] [address] [address] [place] [phone] 0 Phone: () - 11/22 pH (ua) 5.0 8.0 6.0% FINAL [facility] [place], [address] [place] [address] 210 [facility] [phone] 0 Phone: () - 11/22 Prote in (ua) Negativ e FINAL [facility] [place], [address] [place] [address] [address] [place] [phone] Phone: () - 11/22 Urobi linog en (ua) 0.2 1.0 0.2% FINAL [facility] [place], [address] [place] [address] [address] [place] [phone] 0 Phone: () - 11/22 Nitri te (ua) Negativ e FINAL [facility] [place], [address] [place] [address] [address] [place] [phone] Phone: () - 11/22 Leuko cyte jerson ase (ua), qual Negativ e FINAL [facility] [place], [address] [place] [address] [address] [place] [phone] Phone: () - 11/22 UA comme nt 1 Dipstic k negativ e- Culture ordered per provide r FINAL [facility] [place], [address] [place] [address] [address] [place] [phone] Phone: () - 11/22 Urine cultu re panel CULTU RE, URINE , ROUTI NE SEE NOTE Abnor mal CULTURE, URINE, ROUTINEMi crossword puzzle maker Number: [id number] est Status: FinalSpec imen Source: UrineSpec imen [...] f. FINAL Hafsa Bud [facility], [facility] [address] [facility] [phone] 12/18 [facility] other lab See protector plate attacher d 04/18 Total prote in g/dL 6.3 8.2 6.9 FINAL Marlene Guzmán * [facility], [address] [facility] [address] [place] [address] [id number] [phone] 04/18 Album in, SPE g/dL 3.31 5.31 3.97 FINAL Marlene Guzmán * [facility], [facility] [address] [place] [address] [id number] 04/18 Alpha -1 globu tony g/dL 0.19 0.42 0.26 FINAL Marlene Guzmán * [facility], [facility] [address] [place] [address] [id number] 04/18 Alpha -2 globu tony g/dL 0.44 1.03 0.63 FINAL Marlene Guzmán * [facility] [address] [place] [address] [id number] 0 04/18 Beta globu tony g/dL 0.52 1.05 0.95 FINAL Marlene Guzmán * [facility], [address] [facility] [address] [place] [address] [id number] 04/18 Gamma globu tony g/dL 0.59 1.46 1.10 FINAL Marlene Guzmán * [facility], [address] [facility] [address] [place] [address] [id number] 0 04/18 Elect Gemma layton in Lab resul t note Previou sly identif ied parapro teins detecte d in gamma region. Were 0.3 and 0.4 gm/dL, now 0.3 and 0.3 gm/dL. Interpr eted and signed by Adrienne Swanson MD on 024 FINAL Marlene Guzmán * [facility], [facility] [address] [place] [address] [id number] 0 04/18 M-spi ke, SPE, g/dL g/dL 0.0 0.0 0.3 High FINAL Marleneanabel Guzmán * [facility], [address] [facility] [id number] 04/18 M-spi ke 2, SPE g/dL 0.0 0.0 0.3 High FINAL Marlene Guzmán * [facility], [address] [facility] [address] [facility] [id number] 0 04/18 Immun oglob ulin measu remen t IgG, quant mg/dL 610.0 1616.0 946.67 Test performed at [facility] on a Binding Site Optilite Analyzer that uses a turbidime tric method for analysis. Patient testing should not be performed using multiple methodolo gies due to analytica l variation seen between test methodolo gies. FINAL Marlene Guzmán * [facility], [address] [id number] 0 04/18 Immun oglob ulin measu remen t IgA, quant mg/dL 61.0 348.0 493.08 High Test performed at [facility] on a Binding Site Optilite Analyzer that uses a turbidime tric method for analysis. Patient testing should not be performed using multiple methodolo gies due to analytica l variation seen between test methodolo gies. FINAL Marlene Guzmán * [facility], [address] [id number] 0 04/18 Immun oglob ulin measu remen t IgM, quant mg/dL 35.0 242.0 75.62 Test performed at [facility] on a Binding Site Optilite Analyzer that uses a turbidime tric method for analysis. Patient testing should not be performed using multiple methodolo gies due to analytica l variation seen between test methodolo gies. FINAL Marlene Guzmán * [facility], [address] [id number] 0 04/18 Free kappa / lambd a with K/L ratio , serum [place] light chain , free, serum , mg/dL mg/dL 0.33 1.94 3.62 High Test performed at [facility] on a Binding Site Optilite Analyzer that uses a turbidime tric method for analysis. Patient testing should not be performed using multiple methodolo gies due to analytica l variation seen between test methodolo gies. FINAL Marlene Stroud Jannot a [facility], [address] [id number] 0 04/18 Free kappa / lambd a with K/L ratio , serum Lamb[place] a light chain , free, serum , mg/dL mg/dL 0.57 2.63 3.13 High Test performed at [facility] on a Binding Site Optilite Analyzer that uses a turbidime tric method for analysis. Patient testing should not be performed using multiple methodolo gies due to analytica l variation seen between test methodolo gies. FINAL Marlene [facility], [address] [facility] [address] [id number] 0 04/18 Free kappa / lambd a with K/L ratio , serum K/L light chain ratio , free, serum 0.26 1.65 1.16% FINAL Marlene [facility], [address] [facility] [address] [id number] 0 04/18 CBC w/ auto diff WBC K/uL 3.0 8.9 7.0 FINAL Marlene [facility] [place], [address] [facility] [address] [facility] [id number] Phone: () - 04/18 CBC w/ auto diff HGB g/dL 11.3 15.2 14.0 FINAL Marlene [facility] [place], [address] [place] [id number] 0 Phone: () - 04/18 CBC w/ auto diff PLT K/uL 113.0 364.0 164 FINAL Marlene [facility] [place], [address] [place] [id number] 0 Phone: () - 04/18 CBC w/ auto diff Tammy # (ANC) K/uL 1.6 6.6 4.5 FINAL Marlene [facility] [place], [address] [place] [id number] 0 Phone: () - 04/18 CBC w/ auto diff Tammy % % 43.0 74.0 64.0 FINAL Marlene Ramirez [facility] [place], [address] [place] [id number] 0 Phone: () - 04/18 CBC w/ auto diff IG % % 0.0 0.5 0.3 FINAL Marlene Ramirez [facility] [place], [address] [place] [id number] 0 Phone: () - 04/18 CBC w/ auto diff IG # K/uL 0.0 0.03 0.02 FINAL Marlene Ramirez [facility] [place], [address] [place] [id number] 0 Phone: () - 04/18 CBC w/ auto diff LY % % 14.0 41.0 28.2 FINAL Marlene Guzmán [facility] [place], [address] [place] [id number] 0 Phone: () - 04/18 CBC w/ auto diff MO % % 6.0 15.0 6.0 FINAL Marlene Guzmán [facility] [place], [address] [place] [id number] 0 Phone: () - 04/18 CBC w/ auto diff EO % % 0.0 7.0 1.1 FINAL Marlene [facility] [place], [address] [place] [id number] 0 Phone: () - 04/18 CBC w/ auto diff BA % % 0.0 2.0 0.4 FINAL Marlene [facility] [place], [address] [place] [id number] 0 Phone: () - 04/18 CBC w/ auto diff LY # K/uL 0.4 3.6 2.0 FINAL Marlene [facility] [place], [address] [place] [id number] 0 Phone: () - 04/18 CBC w/ auto diff MO # K/uL 0.2 1.3 0.4 FINAL Marlene [facility] [place], [address] [place] [id number] 0 Phone: () - 04/18 CBC w/ auto diff EO # K/uL 0.0 0.6 0.1 FINAL Marlene [facility] - [place], [address] [place] [id number] 0 Phone: () - 04/18 CBC w/ auto diff BA # K/uL 0.0 0.2 0.0 FINAL Marlene [facility] [place], [address] [place] [id number] 0 Phone: () - 04/18 CBC w/ auto diff NRBC % #/100W BC 0.0 0.2 0.0 FINAL Marlene [facility] [place], [address] [place] [id number] 0 Phone: () - 04/18 CBC w/ auto diff RBC M/uL 3.9 5.1 4.84 FINAL Marlene [facility] [place], [address] [place] [id number] 0 Phone: () - 04/18 CBC w/ auto diff HCT % 35.0 48.0 40.4 FINAL Marlene Guzmán [facility] [place], [address] [place] [id number] 0 Phone: () - 04/18 CBC w/ auto diff MCV fL 80.0 104.0 83.5 FINAL Marlene Guzmán [facility] [place], [address] [place] [id number] 0 Phone: () - 04/18 CBC w/ auto diff MCH pg 26.0 35.0 28.9 FINAL Marlene Guzmán [facility] [place], [address] [place] [id number] 0 Phone: () - 04/18 CBC w/ auto diff MCHC g/dL 30.0 35.0 34.7 FINAL Marlene Guzmán [facility] [place], [address] [place] [id number] 0 Phone: () - 04/18 CBC w/ auto diff MPV fL 9.5 13.4 9.7 FINAL Marlene Guzmán [facility] [place], [address] [place] [id number] 0 Phone: () - 04/18 CBC w/ auto diff RDW % 11.4 16.1 13.80 FINAL Marlene Guzmán [facility] [place], [address] [place] [id number] 0 Phone: () - 04/18 CMP Album in g/dL 3.5 5.0 4.0 FINAL Marlene Guzmán * [facility] [place], [address] [place] [id number] 0 04/18 CMP Alkal ine phosp hatas e U/L 36.0 125.0 105 FINAL Marlene Guzmán * [facility] [place], [address] [place] [id number] 0 04/18 CMP ALT/S GPT U/L 0.0 34.0 35 High FINAL Marlene Guzmán * [facility], [address] [facility] [address] [id number] 0 04/18 CMP AST/S GOT U/L 14.0 36.0 44 High FINAL Marlene Guzmán * [facility], [address] [facility] [address] [id number] 0 04/18 CMP BUN mg/dL 7.0 17.0 21.0 High FINAL Marlene Guzmán * [facility], [address] [facility] [address] [id number] 0 04/18 CMP Calci um mg/dL 8.4 10.2 8.8 FINAL Marlene Guzmán * [facility], [address] [facility] [address] [id number] 0 04/18 CMP Chlor nilson mmol/L 96.0 107.0 106 FINAL Marlene Guzmán * [facility], [address] [facility] [address] [id number] 0 04/18 CMP CO2 mmol/L 22.0 30.0 [...] Marlene Guzmán * [facility], [address] [facility] [address] [id number] 0 04/18 CMP Creat inine mg/dL 0.66 1.25 0.70 FINAL Marlene Guzmán * [facility], [address] [facility] [id number] 0 04/18 CMP GFR estim ate ml/min /1.73m ^2 97.7 GFR is calculate d using the CKD-EPI equation. FINAL Marlene Guzmán * [facility], [address] [facility] [id number] 0 04/18 CMP Gluco se mg/dL 74.0 100.0 267 High FINAL Marlene Guzmán * [facility], [address] [facility] [id number] 0 04/18 CMP Potas sium mmol/L 3.5 5.1 4.0 FINAL Marlene Guzmán * [facility], [address] [facility] [id number] 0 04/18 CMP Sodiu m mmol/L 137.0 145.0 136 Low FINAL Marlene Guzmán * [facility], [address] [facility] [id number] 0 04/18 CMP Bilir ubin, total mg/dL 0.2 1.3 1.0 FINAL Marlene Guzmán * [facility], [address] [facility] [id number] 0 04/18 CMP Total prote in g/dL 6.3 8.2 7.3 FINAL Marlene Guzmán * [facility], [address] [facility] [id number] 0 04/18 [facility] other lab See protector plate attacher d 12/20 [facility] other lab See protector plate attacher d 12/20 Misc other lab See protector plate attacher d 03/09 Free kappa / lambd a with K/L ratio , serum [place] light chain , free, serum , mg/dL mg/dL 0.33 1.94 4.35 High Test performed at [facility] on a Binding Site Optilite Analyzer that uses a turbidime tric method for analysis. Patient testing should not be performed using multiple methodolo gies due to analytica l variation seen between test methodolo gies. FINAL Marlene Guzmán * [facility] , [address] [facility] [address] [facility] [id number] 0 03/09 Free kappa / lambd a with K/L ratio , serum [place] light chain , free, serum , mg/dL mg/dL 0.57 2.63 3.83 High Test performed at [facility] on a Binding Site Optilite Analyzer that uses a turbidime tric method for analysis. Patient testing should not be performed using multiple methodolo gies due to analytica l variation seen between test methodolo gies. FINAL Marlene Guzmán * [facility] , [address] [facility] [address] [id number] 0 03/09 Free kappa / lambd a with K/L ratio , serum K/L light chain ratio , free, serum 0.26 1.65 1.14% FINAL Marlene Guzmán * [facility] , [address] [facility] [address] [id number] 0 03/09 CMP Album in g/dL 3.5 5.0 3.8 FINAL Marlene Guzmán * [facility] , [address] [facility] [address] [id number] 03/09 CMP Alkal ine phosp hatas e U/L 36.0 125.0 106 FINAL Marlene Guzmán * [facility] , [address] [facility] [address] [id number] 0 03/09 CMP ALT/S GPT U/L 0.0 34.0 37 High FINAL Marlene Guzmán * [facility] , [address] [facility] [address] [id number] 0 03/09 CMP AST/S GOT U/L 14.0 36.0 36 FINAL Marlene Ramirez * [facility] , [address] [facility] [address] [facility] [id number] 03/09 CMP BUN mg/dL 7.0 17.0 18.0 High FINAL Marlene Guzmán * [facility] , [address] [facility] [address] [facility] [id number] 0 03/09 CMP Calci um mg/dL 8.4 10.2 8.9 FINAL Marlene Guzmán * [facility] , [address] [facility] [address] [facility] [id number] 0 03/09 CMP Chlor nilson mmol/L 96.0 107.0 99 FINAL Marlene Guzmán * [facility] , [address] [facility] [address] [facility] [id number] 0 03/09 CMP CO2 mmol/L 22.0 30.0 [...] hour stability window. FINAL Marlene Guzmán * [facility] , [address] [facility] [address] [facility] [id number] 0 03/09 CMP Creat inine mg/dL 0.66 1.25 0.70 FINAL Marlene Guzmán * [facility] , [address] [facility] [address] [facility] [id number] 0 03/09 CMP GFR estim ate ml/min /1.73m ^2 97.1 GFR is calculate d using the CKD-EPI equation. FINAL Marlene Guzmán * [facility] , [address] [facility] [address] [id number] 0 03/09 CMP Gluco se mg/dL 74.0 100.0 363 Criti sami High FINAL Marlene Guzmán * [facility] , [address] [facility] [address] [facility] [id number] 0 03/09 CMP Potas sium mmol/L 3.5 5.1 3.9 FINAL Marlene Guzmán * [facility] , [address] [facility] [address] [facility] [id number] 0 03/09 CMP Sodiu m mmol/L 137.0 145.0 134 Low FINAL Marlene Guzmán * [facility] , [address] [facility] [address] [facility] [id number] 0 03/09 CMP Bilir ubin, total mg/dL 0.2 1.3 1.1 FINAL Marlene Guzmán * [facility] , [address] [facility] [address] [facility] [id number] 0 03/09 CMP Total prote in g/dL 6.3 8.2 7.3 FINAL Marlene Guzmán * [facility] , [address] [facility] [address] [facility] [id number] 03/09 CBC w/ auto diff WBC K/uL 3.0 8.9 7.1 FINAL Marlene Guzmán [place] [facility] [place] [facility] , [address] [place] [id number] 0 03/09 CBC w/ auto diff HGB g/dL 11.3 15.2 14.4 FINAL Marlene Guzmán [place] [facility] [place] [facility] , [address] [place] [id number] 0 03/09 CBC w/ auto diff PLT K/uL 113.0 364.0 179 FINAL Marlene Guzmán [place] [facility] [place] [facility] , [address] [place] [id number] 0 03/09 CBC w/ auto diff Tammy # (ANC) K/uL 1.6 6.6 4.7 FINAL Marlene Guzmán [place] [facility] [place] [facility] , [address] [place] [id number] 0 03/09 CBC w/ auto diff Tammy % % 43.0 74.0 65.7 FINAL Marlene Guzmán [place] [facility] [place] [facility] , [address] [place] [id number] 0 03/09 CBC w/ auto diff IG % % 0.0 0.5 0.6 High FINAL Marlene Guzmán [place] [facility] [place] [facility] , [address] [place] [id number] 0 03/09 CBC w/ auto diff IG # K/uL 0.0 0.03 0.04 High FINAL Marlene Guzmán [place] [facility] [place] [facility] , [address] [place] [id number] 0 03/09 CBC w/ auto diff LY % % 14.0 41.0 25.8 FINAL Marlene Guzmán [place] [facility] [place] [facility] , [address] [place] [id number] 0 03/09 CBC w/ auto diff MO % % 6.0 15.0 6.2 FINAL Marlene Guzmán [place] [facility] [place] [facility] , [address] [place] [id number] 0 03/09 CBC w/ auto diff EO % % 0.0 7.0 1.1 FINAL Marlene Guzmán [place] [facility] [place] [facility] , [address] [place] [id number] 0 03/09 CBC w/ auto diff BA % % 0.0 2.0 0.6 FINAL Marlene Guzmán [place] [facility] [place] [facility] , [address] [place] [id number] 0 03/09 CBC w/ auto diff LY # K/uL 0.4 3.6 1.8 FINAL Marlene Guzmán [place] [facility] [place] [facility] , [address] [place] [id number] 0 03/09 CBC w/ auto diff MO # K/uL 0.2 1.3 0.4 FINAL Marlene Guzmán [place] [facility] [place] [facility] , [address] [place] [id number] 0 03/09 CBC w/ auto diff EO # K/uL 0.0 0.6 0.1 FINAL Marlene Guzmán [place] [facility] [place] [facility] , [address] [place] [id number] 0 03/09 CBC w/ auto diff BA # K/uL 0.0 0.2 0.0 FINAL Marlene Guzmán [place] [facility] [place] [facility] , [address] [place] [id number] 0 03/09 CBC w/ auto diff NRBC % #/100W BC 0.0 0.2 0.0 FINAL Marlene Guzmán [place] [facility] [place] [facility] , [address] [place] [id number] 0 03/09 CBC w/ auto diff RBC M/uL 3.9 5.1 5.08 FINAL Marlene Guzmán [place] [facility] [place] [facility] , [address] [place] [id number] 0 03/09 CBC w/ auto diff HCT % 35.0 48.0 42.9 FINAL Marlene Guzmán [facility] , [address] [place] [facility] [id number] 03/09 CBC w/ auto diff MCV fL 80.0 104.0 84.4 FINAL Marlene Guzmán [facility] , [address] [place] [facility] [id number] 0 03/09 CBC w/ auto diff MCH pg 26.0 35.0 28.3 FINAL Marlene Guzmán [facility] , [address] [facility] [address] [facility] [id number] 0 03/09 CBC w/ auto diff MCHC g/dL 30.0 35.0 33.6 FINAL Marlene Guzmán [facility] , [address] [facility] [id number] 0 03/09 CBC w/ auto diff MPV fL 9.5 13.4 9.6 FINAL Marlene Guzmán [facility] , [address] [facility] [id number] 0 03/09 CBC w/ auto diff RDW % 11.4 16.1 14.20 FINAL Marlene Guzmán [facility] , [address] [facility] [id number] 0 03/09 Immun oglob ulin measu remen t IgG, quant mg/dL 610.0 1616.0 1080.49 Test performed at [facility] on a Binding Site Optilite Analyzer that uses a turbidime tric method for analysis. Patient testing should not be performed using multiple methodreal rocha due to analytica l variation seen between test methodreal rocha. FINAL Marlene Guzmán * [facility] , [address] [facility] [id number] 0 03/09 Immun oglob ulin measu remen t IgA, quant mg/dL 61.0 348.0 577.26 High Test performed at [facility] on a Binding Site Optilite Analyzer that uses a turbidime tric method for analysis. Patient testing should not be performed using multiple methodolo gies due to analytica l variation seen between test methodolo gies. FINAL Marlene Guzmán * [facility] , [facility] [address] [id number] 0 03/09 Immun oglob ulin measu remen t IgM, quant mg/dL 35.0 242.0 91.00 Test performed at [facility] on a Binding Site Optilite Analyzer that uses a turbidime tric method for analysis. Patient testing should not be performed using multiple methodolo gies due to analytica l variation seen between test methodolo gies. FINAL Marlene Guzmán * [facility] , [facility] [address] [id number] 0 03/09 Total prote in g/dL 6.3 8.2 7.1 FINAL Marlene Guzmán * [facility] , [facility] [address] [place] [address] [id number] 03/09 Album in, SPE g/dL 3.31 5.31 4.70 FINAL Marlene Guzmán * [facility] , [facility] [address] [id number] 0 03/09 Alpha -1 globu tony g/dL 0.19 0.42 0.23 FINAL Marlene Guzmán * [facility] , [facility] [address] [id number] 0 03/09 Alpha -2 globu tony g/dL 0.44 1.03 0.52 FINAL Marlene Guzmán * [facility] , [facility] [address] [id number] 0 03/09 Beta globu tony g/dL 0.52 1.05 0.80 FINAL Marlene Guzmán * [facility] , [address] [facility] [address] [id number] 0 03/09 Gamma globu tony g/dL 0.59 1.46 0.85 FINAL Marlene Guzmán * [facility] , [address] [facility] [address] [id number] 0 03/09 Elect Gemma layton in Lab resul t note Previou sly identif ied parapro teins detecte d in gamma region. Is now 0.3 and 0.4 gm/dL. Interpr eted and signed by Luis Guillermo MD on 025 FINAL Marlene Guzmán * [facility] , [facility] [address] [id number] 0 03/09 M-spi ke, SPE, g/dL g/dL 0.0 0.0 0.3 High FINAL Marlene Guzmán * [facility] , [address] [facility] [address] [id number] 0 03/09 M-spi ke 2, SPE g/dL 0.0 0.0 0.4 High FINAL Marlene Guzmán * [facility] , [address] [facility] 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 History of Present Illness (Principal Developer Oncology): 63 y.o.?? 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 Anxious, , female tearful??throughout [...] record:05/23/2019 Last record:05/23/2019; ) Assessment & Plan (Principal Developer Oncology): 63?? y.o. with abnormal uterine [...]
[2025-07-06 23:37] VITALS: O2SAT 98
--- OUTSIDE RECORDS SUMMARY | 2025-07-06 23:37 | XMS_ITS ---
Author Name Interface, [id number] lity Address [address] [facility] [address] [place] [address] [facility] Oncology Address [address] [facility] [address] [place] [address] Support Name Relationship Address Phone Greg Ch [...] FINAL [facility] [place], [address] [place] [address] 210 [facility] [phone] Phone: () - 11/22 Appea ying (ua) Clear FINAL [facility] [place], [address] [place] [address] 210 [facility] [phone] 0 Phone: () - 11/22 Gluco se (ua), qual 500.0% Abnor mal FINAL [facility] [place], [address] [facility] 210 [facility] [phone] 0 Phone: () - 11/22 Bilir ubin (ua) Negativ e FINAL [facility] [place], [address] [place] [address] 210 [facility] [phone] 0 Phone: () - 11/22 Urina lysis , aceto ne or keton e chapo s measu remen t Negativ e FINAL [facility] [place], [address] [facility] 210 [place] [phone] 0 Phone: () - 11/22 Speci fic gravi ty (ua) 1.005 1.02 1.025% Abnor mal FINAL [facility] [place], [address] [facility] 210 [place] [phone] 0 Phone: () - 11/22 Blood (ua) Negativ e FINAL [facility] [place], [address] [place] [address] 210 [place] [phone] 0 Phone: () - 11/22 pH (ua) 5.0 8.0 6.0% FINAL [facility] [place], [address] [place] [address] 210 [facility] [phone] [phone] Phone: () - 11/22 Prote in (ua) Negativ e FINAL [facility] [place], [address] [place] [address] 210 [place] [phone] 0 Phone: () - 11/22 Urobi linog en (ua) 0.2 1.0 0.2% FINAL [facility] [place], [address] [place] [address] 210 [place] [phone] 0 Phone: () - 11/22 Nitri te (ua) Negativ e FINAL [facility] [place], [address] [place] [address] 210 [place] [phone] 0 Phone: () - 11/22 Leuko cyte jerson ase (ua), qual Negativ e FINAL [facility]sa [facility] [place], [address] [place] [address] 210 [place] [phone] 0 Phone: () - 11/22 UA comme nt 1 Dipstic k negativ e- Culture ordered per provide r FINAL [facility]sa [facility] [place], [address] [place] [address] 210 [place] [phone] 0 Phone: () - 11/22 Urine cultu re panel CULTU RE, URINE , ROUTI NE SEE NOTE Abnor mal 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 FINAL Hafsa Bud [facility], [facility] [address] [facility] [id number] 4 12/18 [facility] other lab See yarn texture machine operator d 04/18 Total prote in g/dL 6.3 8.2 6.9 FINAL Marlene Guzmán * [facility], [address] [facility] [address] [place] [address] [id number] 0 04/18 Album in, SPE g/dL 3.31 5.31 3.97 FINAL Marlene Guzmán * [facility], [facility] [address] [place] [address] [id number] 0 04/18 Alpha -1 globu tony g/dL 0.19 0.42 0.26 FINAL Marlene Guzmán * [facility], [facility] [address] [place] [address] [id number] 0 04/18 Alpha -2 globu tony g/dL 0.44 1.03 0.63 FINAL Marlene Guzmán * [facility] [address] [place] [address] [id number] 0 04/18 Beta globu tony g/dL 0.52 1.05 0.95 FINAL Marlene Guzmán * [facility], [address] [facility] [address] [place] [address] [id number] 0 04/18 Gamma globu tony g/dL 0.59 1.46 1.10 FINAL Marlene Guzmán * [facility], [address] [facility] [address] [place] [address] [id number] 0 04/18 Elect Gemma layton in Lab resul t note Previou sly identif ied parapro teins detecte d in gamma region. Were 0.3 and 0.4 gm/dL, now 0.3 and 0.3 gm/dL. Interpr eted and signed by Adrienne Swanson MD on 024 FINAL Marlene Guzmán * [facility], [facility] [address] [place] [address] [id number] 0 04/18 M-spi ke, SPE, g/dL g/dL 0.0 0.0 0.3 High FINAL Marleneanabel Guzmán * [facility], [address] [facility] [id number] 0 04/18 M-spi ke 2, SPE g/dL 0.0 0.0 0.3 High FINAL Marlene Guzmán * [facility], [address] [facility] [address] [facility] [id number] 0 04/18 Immun oglob ulin measu remen t IgG, quant mg/dL 610.0 1616.0 946.67 Test performed at [facility] on a Binding Site Optilite Analyzer that uses a turbidime tric method for analysis. Patient testing should not be performed using multiple methodolo gies due to analytica l variation seen between test methodolo gies. FINAL Marlene Guzmán * [facility], [address] [id number] 0 04/18 Immun oglob ulin measu remen t IgA, quant mg/dL 61.0 348.0 493.08 High Test performed at [facility] on a Binding Site Optilite Analyzer that uses a turbidime tric method for analysis. Patient testing should not be performed using multiple methodolo gies due to analytica l variation seen between test methodolo gies. FINAL Marlene Guzmán * [facility], [address] [id number] 0 04/18 Immun oglob ulin measu remen t IgM, quant mg/dL 35.0 242.0 75.62 Test performed at [facility] on a Binding Site Optilite Analyzer that uses a turbidime tric method for analysis. Patient testing should not be performed using multiple methodolo gies due to analytica l variation seen between test methodolo gies. FINAL Marlene Guzmán * [facility] [place], [address] [id number] 0 04/18 Free kappa / lambd a with K/L ratio , serum Kevin light chain , free, serum , mg/dL mg/dL 0.33 1.94 3.62 High Test performed at [facility] on a Binding Site Optilite Analyzer that uses a turbidime tric method for analysis. Patient testing should not be performed using multiple methodolo gies due to analytica l variation seen between test methodolo gies. FINAL Marlene Stroud [facility], [address] [id number] 0 04/18 Free kappa / lambd a with K/L ratio , serum Lambd a light chain , free, serum , mg/dL mg/dL 0.57 2.63 3.13 High Test performed at [facility] on a Binding Site Optilite Analyzer that uses a turbidime tric method for analysis. Patient testing should not be performed using multiple methodolo gies due to analytica l variation seen between test methodolo gies. FINAL Marlene [facility], [address] [facility] [address] [id number] 0 04/18 Free kappa / lambd a with K/L ratio , serum K/L light chain ratio , free, serum 0.26 1.65 1.16% FINAL Marlene [facility], [address] [facility] [address] [id number] 0 04/18 CBC w/ auto diff WBC K/uL 3.0 8.9 7.0 FINAL Marlene [facility] - [place], [address] [facility] [address] [facility] [id number] 0 Phone: () - 04/18 CBC w/ auto diff HGB g/dL 11.3 15.2 14.0 FINAL Marlene pagan [facility] - [place], [address] [place] [id number] 0 Phone: () - 04/18 CBC w/ auto diff PLT K/uL 113.0 364.0 164 FINAL Marlene Rubi [facility] - [place], [address] [place] [id number] 0 Phone: () - 04/18 CBC w/ auto diff Tammy # (ANC) K/uL 1.6 6.6 4.5 FINAL Marlene [facility] - [place], [address] [place] [id number] 0 Phone: () - 04/18 CBC w/ auto diff Tammy % % 43.0 74.0 64.0 FINAL Marlene Ramirez [facility] [place], [address] [place] [id number] 0 Phone: () - 04/18 CBC w/ auto diff IG % % 0.0 0.5 0.3 FINAL Marlene Ramirez [facility] [place], [address] [place] [id number] 0 Phone: () - 04/18 CBC w/ auto diff IG # K/uL 0.0 0.03 0.02 FINAL Marlene Ramirez [facility] [place], [address] [place] [id number] 0 Phone: () - 04/18 CBC w/ auto diff LY % % 14.0 41.0 28.2 FINAL Marlene Guzmán [facility] [place], [address] [place] [id number] 0 Phone: () - 04/18 CBC w/ auto diff MO % % 6.0 15.0 6.0 FINAL Marlene Guzmán [facility] [place], [address] [place] [id number] 0 Phone: () - 04/18 CBC w/ auto diff EO % % 0.0 7.0 1.1 FINAL Marlene Ramirez [facility] [place], [address] [place] [id number] 0 Phone: () - 04/18 CBC w/ auto diff BA % % 0.0 2.0 0.4 FINAL Marlene [facility] - [place], [address] [place] [id number] 0 Phone: () - 04/18 CBC w/ auto diff LY # K/uL 0.4 3.6 2.0 FINAL Marlene Rubi a [facility] - [place], [address] [place] [id number] 0 Phone: () - 04/18 CBC w/ auto diff MO # K/uL 0.2 1.3 0.4 FINAL Marlene Rubi [facility] - [place], [address] [place] [id number] 0 Phone: () - 04/18 CBC w/ auto diff EO # K/uL 0.0 0.6 0.1 FINAL Marlene Rubi a [facility] - [place], [address] [place] [id number] 0 Phone: () - 04/18 CBC w/ auto diff BA # K/uL 0.0 0.2 0.0 FINAL Marlene Rubi a [facility] - [place], [address] [place] [id number] 0 Phone: () - 04/18 CBC w/ auto diff NRBC % #/100W BC 0.0 0.2 0.0 FINAL Marlene Rubi [facility] - [place], [address] [place] [id number] 0 Phone: () - 04/18 CBC w/ auto diff RBC M/uL 3.9 5.1 4.84 FINAL Marlene [facility] - [place], [address] [place] [id number] 0 Phone: () - 04/18 CBC w/ auto diff HCT % 35.0 48.0 40.4 FINAL Marlene Guzmán [facility] [place], [address] [place] [id number] 0 Phone: () - 04/18 CBC w/ auto diff MCV fL 80.0 104.0 83.5 FINAL Marlene Guzmán [facility] [place], [address] [place] [id number] 0 Phone: () - 04/18 CBC w/ auto diff MCH pg 26.0 35.0 28.9 FINAL Marlene Guzmán [facility] [place], [address] [place] [id number] 0 Phone: () - 04/18 CBC w/ auto diff MCHC g/dL 30.0 35.0 34.7 FINAL Marlene Guzmán [facility] [place], [address] [place] [id number] 0 Phone: () - 04/18 CBC w/ auto diff MPV fL 9.5 13.4 9.7 FINAL Marlene Guzmán [facility] [place], [address] [place] [id number] 0 Phone: () - 04/18 CBC w/ auto diff RDW % 11.4 16.1 13.80 FINAL Marlene Guzmán [facility] [place], [address] [place] [id number] 0 Phone: () - 04/18 CMP Album in g/dL 3.5 5.0 4.0 FINAL Marlene Guzmán * [facility] [place], [address] [place] [id number] 0 04/18 CMP Alkal ine phosp hatas e U/L 36.0 125.0 105 FINAL Marlene Guzmán * [facility] [place], [address] [place] [id number] 0 04/18 CMP ALT/S GPT U/L 0.0 34.0 35 High FINAL Marlene Guzmán * [facility], [address] [facility] [address] [id number] 0 04/18 CMP AST/S GOT U/L 14.0 36.0 44 High FINAL Marlene Guzmán * [facility], [address] [facility] [address] [id number] 0 04/18 CMP BUN mg/dL 7.0 17.0 21.0 High FINAL Marlene Guzmán * [facility], [address] [facility] [address] [id number] 0 04/18 CMP Calci um mg/dL 8.4 10.2 8.8 FINAL Marlene Guzmán * [facility], [address] [facility] [address] [id number] 0 04/18 CMP Chlor nilson mmol/L 96.0 107.0 106 FINAL Marlene Guzmán * [facility], [address] [facility] [address] [id number] 0 04/18 CMP CO2 mmol/L 22.0 30.0 [...] Guzmán * [facility], [address] [facility] [address] [id number] 0 04/18 CMP Creat inine mg/dL 0.66 1.25 0.70 FINAL Marlene Guzmán * [facility], [address] [facility] [id number] 0 04/18 CMP GFR estim ate ml/min /1.73m ^2 97.7 GFR is calculate d using the CKD-EPI equation. FINAL Marlene Guzmán * [facility], [address] [facility] [id number] 0 04/18 CMP Gluco se mg/dL 74.0 100.0 267 High FINAL Marlene Guzmán * [facility], [address] [facility] [id number] 0 04/18 CMP Potas sium mmol/L 3.5 5.1 4.0 FINAL Marlene Guzmán * [facility], [address] [facility] [id number] 0 04/18 CMP Sodiu m mmol/L 137.0 145.0 136 Low FINAL Marlene Guzmán * [facility], [address] [facility] [id number] 0 04/18 CMP Bilir ubin, total mg/dL 0.2 1.3 1.0 FINAL Marlene Guzmán * [facility], [address] [facility] [id number] 0 04/18 CMP Total prote in g/dL 6.3 8.2 7.3 FINAL Marlene Guzmán * [facility], [address] [facility] [id number] 0 04/18 [facility] other lab See yarn texture machine operator d 12/20 [facility] other lab See yarn texture machine operator d 12/20 Misc other lab See yarn texture machine operator d 03/09 Free kappa / lambd a with K/L ratio , serum Kevin light chain , free, serum , mg/dL mg/dL 0.33 1.94 4.35 High Test performed at [facility] on a Binding Site Optilite Analyzer that uses a turbidime tric method for analysis. Patient testing should not be performed using multiple methodolo gies due to analytica l variation seen between test methodolo gies. FINAL Marlene Guzmán * [facility] , [address] [facility] [address] [facility] [id number] 0 03/09 Free kappa / lambd a with K/L ratio , serum Lambd a light chain , free, serum , mg/dL mg/dL 0.57 2.63 3.83 High Test performed at [facility] on a Binding Site Optilite Analyzer that uses a turbidime tric method for analysis. Patient testing should not be performed using multiple methodolo gies due to analytica l variation seen between test methodolo gies. FINAL Marlene Guzmán * [facility] , [address] [facility] [address] [id number] 0 03/09 Free kappa / lambd a with K/L ratio , serum K/L light chain ratio , free, serum 0.26 1.65 1.14% FINAL Marlene Guzmán * [facility] , [address] [facility] [address] [id number] 0 03/09 CMP Album in g/dL 3.5 5.0 3.8 FINAL Marlene Guzmán * [facility] , [address] [facility] [address] [id number] 0 03/09 CMP Alkal ine phosp hatas e U/L 36.0 125.0 106 FINAL Marlene Guzmán * [facility] , [address] [facility] [address] [id number] 0 03/09 CMP ALT/S GPT U/L 0.0 34.0 37 High FINAL Marlene Guzmán * [facility] , [address] [facility] [address] [id number] 0 03/09 CMP AST/S GOT U/L 14.0 36.0 36 FINAL Marlene Ramirez * [facility] , [address] [facility] [address] [facility] [id number] 0 03/09 CMP BUN mg/dL 7.0 17.0 18.0 High FINAL Marlene Guzmán * [facility] , [address] [facility] [address] [facility] [id number] 0 03/09 CMP Calci um mg/dL 8.4 10.2 8.9 FINAL Marlene Guzmán * [facility] , [address] [facility] [address] [facility] [id number] 0 03/09 CMP Chlor nilson mmol/L 96.0 107.0 99 FINAL Marlene Guzmán * [facility] , [address] [facility] [address] [facility] [id number] 0 03/09 CMP CO2 mmol/L 22.0 30.0 [...] hour stability window. FINAL Marlene Guzmán * [facility] , [address] [facility] [address] [facility] [id number] 0 03/09 CMP Creat inine mg/dL 0.66 1.25 0.70 FINAL Marlene Guzmán * [facility] , [address] [facility] [address] [facility] [id number] 0 03/09 CMP GFR estim ate ml/min /1.73m ^2 97.1 GFR is calculate d using the CKD-EPI equation. FINAL Marlene Guzmán * [facility] , [address] [facility] [address] [id number] 0 03/09 CMP Gluco se mg/dL 74.0 100.0 363 Criti sami High FINAL Marlene Guzmán * [facility] , [address] [facility] [address] [facility] [id number] 0 03/09 CMP Potas sium mmol/L 3.5 5.1 3.9 FINAL Marlene Guzmán * [facility] , [address] [facility] [address] [facility] [id number] 0 03/09 CMP Sodiu m mmol/L 137.0 145.0 134 Low FINAL Marlene Guzmán * [facility] , [address] [facility] [address] [facility] [id number] 0 03/09 CMP Bilir ubin, total mg/dL 0.2 1.3 1.1 FINAL Marlene Guzmán * [facility] , [address] [facility] [address] [facility] [id number] 0 03/09 CMP Total prote in g/dL 6.3 8.2 7.3 FINAL Marlene Guzmán * [facility] , [address] [facility] [address] [facility] [id number] 0 03/09 CBC w/ auto diff WBC K/uL 3.0 8.9 7.1 FINAL Marlene Guzmán [place] [facility] [place] [facility] , [address] [place] [id number] 0 03/09 CBC w/ auto diff HGB g/dL 11.3 15.2 14.4 FINAL Marlene Guzmán [place] [facility] [place] [facility] , [address] [place] [id number] 0 03/09 CBC w/ auto diff PLT K/uL 113.0 364.0 179 FINAL Marlene Guzmán [place] [facility] [place] [facility] , [address] [place] [id number] 0 03/09 CBC w/ auto diff Tammy # (ANC) K/uL 1.6 6.6 4.7 FINAL Marlene Guzmán [place] [facility] [place] [facility] , [address] [place] [id number] 0 03/09 CBC w/ auto diff Tammy % % 43.0 74.0 65.7 FINAL Marlene Guzmán [place] [facility] [place] [facility] , [address] [place] [id number] 0 03/09 CBC w/ auto diff IG % % 0.0 0.5 0.6 High FINAL Marlene Guzmán [place] [facility] , [address] [place] [id number] 0 03/09 CBC w/ auto diff IG # K/uL 0.0 0.03 0.04 High FINAL Marlene Guzmán [place] [facility] [place] [facility] , [address] [place] [id number] 0 03/09 CBC w/ auto diff LY % % 14.0 41.0 25.8 FINAL Marlene Guzmán [place] [facility] [place] [facility] , [address] [place] [id number] 0 03/09 CBC w/ auto diff MO % % 6.0 15.0 6.2 FINAL Marlene Guzmán [place] [facility] [place] [facility] , [address] [place] [id number] 0 03/09 CBC w/ auto diff EO % % 0.0 7.0 1.1 FINAL Marlene Guzmán [place] [facility] [place] [facility] , [address] [place] [id number] 0 03/09 CBC w/ auto diff BA % % 0.0 2.0 0.6 FINAL Marlene Guzmán [place] [facility] [place] [facility] , [address] [place] [id number] 0 03/09 CBC w/ auto diff LY # K/uL 0.4 3.6 1.8 FINAL Marlene Guzmán [place] [facility] [place] [facility] , [address] [place] [id number] 0 03/09 CBC w/ auto diff MO # K/uL 0.2 1.3 0.4 FINAL Marlene Guzmán [place] [facility] [place] [facility] , [address] [place] [id number] 0 03/09 CBC w/ auto diff EO # K/uL 0.0 0.6 0.1 FINAL Marlene Guzmán [place] [facility] [place] [facility] , [address] [place] [id number] 0 03/09 CBC w/ auto diff BA # K/uL 0.0 0.2 0.0 FINAL Marlene Guzmán [place] [facility] [place] [facility] , [address] [place] [id number] 0 03/09 CBC w/ auto diff NRBC % #/100W BC 0.0 0.2 0.0 FINAL Marlene Guzmán [place] [facility] [place] [facility] , [address] [place] [id number] 0 03/09 CBC w/ auto diff RBC M/uL 3.9 5.1 5.08 FINAL Marlene Guzmán [place] [facility] [place] [facility] , [address] [place] [id number] 0 03/09 CBC w/ auto diff HCT % 35.0 48.0 42.[address] [facility] , [address] [place] [facility] [id number] 0 03/09 CBC w/ auto diff MCV fL 80.0 104.0 84.[address] [facility] On[facility] , [address] [facility] [address] [place] [facility] [id number] 0 03/09 CBC w/ auto diff MCH pg 26.0 35.0 28.[address] [facility] , [address] [facility] [address] [facility] [id number] 0 03/09 CBC w/ auto diff MCHC g/dL 30.0 35.0 33.[address] [facility] , [address] [facility] [address] [facility] [address] [facility] [id number] 0 03/09 CBC w/ auto diff MPV fL 9.5 13.4 9.[address] [facility] , [address] [facility] [address] [facility] [id number] 0 03/09 CBC w/ auto diff RDW % 11.4 16.1 14.[address] [facility] , [address] [facility] [address] [facility] [id number] 0 03/09 Immun oglob ulin measu remen t IgG, quant mg/dL 610.0 1616.0 1080.49 Test performed at [facility] on a Binding Site Optilite Analyzer that uses a turbidime tric method for analysis. Patient testing should not be performed using multiple methodreal rocha due to analytica l variation seen between test methodreal rocha. FINAL Marlene Guzmán * [facility] , [address] [facility] [id number] 0 03/09 Immun oglob ulin measu remen t IgA, quant mg/dL 61.0 348.0 577.26 High Test performed at [facility] on a Binding Site Optilite Analyzer that uses a turbidime tric method for analysis. Patient testing should not be performed using multiple methodolo gies due to analytica l variation seen between test methodolo gies. FINAL Marlene Guzmán * [facility] , [facility] [address] [id number] 0 03/09 Immun oglob ulin measu remen t IgM, quant mg/dL 35.0 242.0 91.00 Test performed at [facility] on a Binding Site Optilite Analyzer that uses a turbidime tric method for analysis. Patient testing should not be performed using multiple methodolo gies due to analytica l variation seen between test methodolo gies. FINAL Marlene Guzmán * [facility] , [facility] [address] [id number] 0 03/09 Total prote in g/dL 6.3 8.2 7.1 FINAL Marlene Guzmán * [facility] , [facility] [address] [place] [address] [id number] 03/09 Album in, SPE g/dL 3.31 5.31 4.70 FINAL Marlene Guzmán * [facility] , [facility] [address] [id number] 0 03/09 Alpha -1 globu tony g/dL 0.19 0.42 0.23 FINAL Marlene Guzmán * [facility] , [facility] [address] [id number] 0 03/09 Alpha -2 globu tony g/dL 0.44 1.03 0.52 FINAL Marlene Guzmán * [facility] , [facility] [address] [id number] 0 03/09 Beta globu tony g/dL 0.52 1.05 0.80 FINAL Marlene Guzmán * [facility] , [address] [facility] [address] [id number] 0 03/09 Gamma globu tony g/dL 0.59 1.46 0.85 FINAL Marlene Guzmán * [facility] , [address] [facility] [address] [id number] 0 03/09 Elect Gemma layton in Lab resul t note Previou sly identif ied parapro teins detecte d in gamma region. Is now 0.3 and 0.4 gm/dL. Interpr eted and signed by Luis Guillermo MD on 025 FINAL Marlene Guzmán * [facility] , [facility] [address] [id number] 0 03/09 M-spi ke, SPE, g/dL g/dL 0.0 0.0 0.3 High FINAL Marlene Guzmán * [facility] , [address] [facility] [address] [id number] 0 03/09 M-spi ke 2, SPE g/dL 0.0 0.0 0.4 High FINAL Marlene Guzmán * [facility] , [address] [facility] [address] [id number] 0 04/03 Misc other lab See yarn texture machine operator d Medications Date Name Route Dose Frequency [...] 70 04/10/2025 BMI 53.23 Notes Section * SUPER[employer]OR [employer]ADING Follow-Up GYNECOLOGIC ONCOLOGY FOLLOW-UP VISIT Patient Name: JOSE ANGEL CH : 1960 Date of Visit: 11/23/2023 Referring Provider: Malissa Hernandez MD (RACE RELATIONS PROFESSOR) Attending: Marlene Guzmán (Hematology/Oncology) Chief Complaint (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 History of Present Illness ([employer] Oncology): 63 y.o.?? 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 Anxious, , female tearful??throughout visit. [...] record:05/23/2019 Last record:05/23/2019; ) Assessment & Plan ([employer] Data [employer] Oncology): 63?? y.o. with abnormal uterine bleeding/PMB [...]
--- OUTSIDE RECORDS SUMMARY | 2025-07-06 23:37 | XMS_ITS ---
Author Name Interface, [id number] lity Address [address] [facility] [address] [place] [address] [facility] Address [address] [facility] [address] [place] [address] Support Name Relationship Address Phone Greg Henry [...] Ordered By Specimen Source Lab Address 11/05 [facility] other lab See elastic attacher zigzag d 11/08 [facility] other lab See elastic attacher zigzag d 11/22 Color (ua) Yellow FINAL Hafsa Bud [facility] [facility] [place], [address] [facility] 210 [place] [phone] 0 Phone: () - 11/22 Appea ying (ua) Clear FINAL Hafsaanabel Rubi [facility] - [place], [address] [place] [address] 210 [place] [phone] 0 Phone: () - 11/22 Gluco se (ua), qual 500.0% Abnor mal FINAL Hafsaanabel Rubi [facility] - [place], [address] [place] [address] 210 [place] [phone] 0 Phone: () - 11/22 Bilir ubin (ua) Negativ e FINAL Hafsaanabel Rubi [facility] - [place], [address] [place] [address] 210 [place] [phone] Phone: () - 11/22 Urina lysis , aceto ne or keton e chapo s measu remen t Negativ e FINAL Hafsaanabel Rubi [facility] - [place], [address] [place] [address] 210 [place] [phone] 0 Phone: () - 11/22 Speci fic gravi ty (ua) 1.005 1.02 1.025% Abnor mal FINAL Hafsaanabel Rubi [facility] - [place], [address] [place] [address] 210 [place] [phone] 0 Phone: () - 11/22 Blood (ua) Negativ e FINAL Hafsaanabel Rubi a [facility] - [place], [address] [place] [address] 210 [place] [phone] 0 Phone: () - 11/22 pH (ua) 5.0 8.0 6.0% FINAL Hafsaanabel [facility] - [place], [address] [place] [address] 210 [place] [phone] 0 Phone: () - 11/22 Prote in (ua) Negativ e FINAL Hafsaanabel Rubi [facility] - [place], [address] [place] [address] 210 [place] [phone] 0 Phone: () - 11/22 Urobi linog en (ua) 0.2 1.0 0.2% FINAL Hafsaanabel [facility] - [place], [address] [place] [address] [facility] [phone] 0 Phone: () - 11/22 Nitri te (ua) Negativ e FINAL Hafsa Rubi a [facility], [address] [place] [address] [facility] [phone] Phone: () - 11/22 Leuko cyte jerson ase (ua), qual Negativ e FINAL Hafsa Rubi [facility], [address] [place] [address] [phone] 0 Phone: () - 11/22 UA comme nt 1 Dipstic k negativ e- Culture ordered per provide r FINAL Hafsa Rubi [facility], [address] [place] [address] [phone] Phone: () - 11/22 Urine cultu re panel CULTU RE, URINE , ROUTI NE SEE NOTE Abnor mal CULTURE, URINE, ROUTINEMi microchip specialist Number: [id number] est Status: FinalSpec imen Source: UrineSpec imen [...] f. FINAL Hafsaanabel Farrell [facility] [address] [facility] [id number] 4 12/18 [facility] other lab See d 04/18 Total prote in g/dL 6.3 8.2 6.9 FINAL Marlene Guzmán * [facility], [facility] [address] [place] [address] [id number] 04/18 Album in, SPE g/dL 3.31 5.31 3.97 FINAL Marlene Guzmán * [facility], [facility]0 [facility] [address] [place] [address] [id number] 0 04/18 Alpha -1 globu tony g/dL 0.19 0.42 0.26 FINAL Marlene Guzmán * [facility], [address] [id number] 04/18 Alpha -2 globu tony g/dL 0.44 1.03 0.63 FINAL Marlene Guzmán * [facility], [address] [id number] 0 04/18 Beta globu tony g/dL 0.52 1.05 0.95 FINAL Marlene Guzmán * [facility], [address] [id number] 04/18 Gamma globu tony g/dL 0.59 1.46 1.10 FINAL Marlene Guzmán * [facility], [facility]0 [facility] [address] [place] [address] [id number] 0 04/18 Elect abiola jackson Gemma in Lab resul t note Previou sly identif ied parapro teins detecte d in gamma region. Were 0.3 and 0.4 gm/dL, now 0.3 and 0.3 gm/dL. Interpr eted and signed by Adrienne Swanson MD on 024 FINAL Marlene Guzmán * [facility], [facility]0 [facility] [address] [place] [address] [id number] 04/18 M-spi ke, SPE, g/dL g/dL 0.0 0.0 0.3 High FINAL Marlene Guzmán * [facility], [address] [facility] [address] [id number] 0 04/18 M-spi ke 2, SPE g/dL 0.0 0.0 0.3 High FINAL Marlene Guzmán * [facility], [facility]0 [facility] [address] [place] [address] [id number] 04/18 Immun oglob ulin measu remen t IgG, quant mg/dL 610.0 1616.0 946.67 Test performed at [facility] on a Binding Site Optilite Analyzer that uses a turbidime tric method for analysis. Patient testing should not be performed using multiple methodreal gikim due to analytica l variation seen between test methodreal rocha. FINAL Marlene Guzmán * [facility], [facility]0 [facility] [address] [place] [address] [id number] 0 04/18 Immun oglob ulin measu remen t IgA, quant mg/dL 61.0 348.0 493.08 High Test performed at [facility] on a Binding Site Optilite Analyzer that uses a turbidime tric method for analysis. Patient testing should not be performed using multiple methodolo gies due to analytica l variation seen between test methodolo gies. FINAL Marlene Stroud [facility] [address] [place] [address] [id number] 04/18 Immun oglob ulin measu remen t IgM, quant mg/dL 35.0 242.0 75.62 Test performed at [facility] on a Binding Site Optilite Analyzer that uses a turbidime tric method for analysis. Patient testing should not be performed using multiple methodolo gies due to analytica l variation seen between test methodolo gies. FINAL Marlene Stroud [facility] a [address] [place] [address] [id number] 0 04/18 Free kappa / lambd a with K/L ratio , serum [place] light chain , free, serum , mg/dL mg/dL 0.33 1.94 3.62 High Test performed at [facility] on a Binding Site Optilite Analyzer that uses a turbidime tric method for analysis. Patient testing should not be performed using multiple methodolo gies due to analytica l variation seen between test methodolo gies. FINAL Marlene Guzmán * Jann a [address] [place] [address] [id number] 0 04/18 Free kappa / lambd a [...] gies. FINAL Marlene Stroud [facility] [address] [place] [address] [id number] 0 04/18 Free kappa / lambd a with K/L ratio , serum K/L light chain ratio , free, serum 0.26 1.65 1.16% FINAL Marlene Guzmán * [facility] [place], [address] [facility] [place] [id number] 0 04/18 CBC w/ auto diff WBC K/uL 3.0 8.9 7.0 FINAL Marlene [facility] - [place], [address] [place] [id number] 0 Phone: () - 04/18 CBC w/ auto diff HGB g/dL 11.3 15.2 14.0 FINAL Marlene Rubi a [facility] - [place], [address] [place] [id number] 0 Phone: () - 04/18 CBC w/ auto diff PLT K/uL 113.0 364.0 164 FINAL Marlene Rubi a [facility] - [place], [address] [place] [id number] 0 Phone: () - 04/18 CBC w/ auto diff Tammy # (ANC) K/uL 1.6 6.6 4.5 FINAL Marlene pagan [facility] - [place], [address] [place] [id number] 0 Phone: () - 04/18 CBC w/ auto diff Tammy % % 43.0 74.0 64.0 FINAL Marlene pagan [facility] - [place], [address] [place] [id number] 0 Phone: () - 04/18 CBC w/ auto diff IG % % 0.0 0.5 0.3 FINAL Marlene Rubi a [facility] - [place], [address] [place] [id number] 0 Phone: () - 04/18 CBC w/ auto diff IG # K/uL 0.0 0.03 0.02 FINAL Marlene Rubi a [facility] - [place], [address] [place] [id number] 0 Phone: () - 04/18 CBC w/ auto diff LY % % 14.0 41.0 28.2 FINAL Marlene pagan [facility] - [place], [address] [place] [id number] 0 Phone: () - 04/18 CBC w/ auto diff MO % % 6.0 15.0 6.0 FINAL Marlene pagan [facility] - [place], [address] [place] [id number] 0 Phone: () - 04/18 CBC w/ auto diff EO % % 0.0 7.0 1.1 FINAL Marlene pagan [facility] - [place], [address] [place] [id number] 0 Phone: () - 04/18 CBC w/ auto diff BA % % 0.0 2.0 0.4 FINAL Marlene pagan [facility] - [place], [address] [place] [id number] 0 Phone: () - 04/18 CBC w/ auto diff LY # K/uL 0.4 3.6 2.0 FINAL Marlene pagan [facility] - [place], [address] [place] [id number] 0 Phone: () - 04/18 CBC w/ auto diff MO # K/uL 0.2 1.3 0.4 FINAL Marlene pagan [facility] - [place], [address] [place] [id number] 0 Phone: () - 04/18 CBC w/ auto diff EO # K/uL 0.0 0.6 0.1 FINAL Marlene pagan [facility] - [place], [address] [place] [id number] 0 Phone: () - 04/18 CBC w/ auto diff BA # K/uL 0.0 0.2 0.0 FINAL Marlene pagan [facility] - [place], [address] [place] [id number] 0 Phone: () - 04/18 CBC w/ auto diff NRBC % #/100W BC 0.0 0.2 0.0 FINAL Marlene [facility] [facility] - [place], [address] [place] [id number] 0 Phone: () - 04/18 CBC w/ auto diff RBC M/uL 3.9 5.1 4.84 FINAL Marlene [facility] - [place], [address] [place] [id number] 0 Phone: () - 04/18 CBC w/ auto diff HCT % 35.0 48.0 40.4 FINAL Marlene Ramierz [facility] - [place], [address] [place] [id number] 0 Phone: () - 04/18 CBC w/ auto diff MCV fL 80.0 104.0 83.5 FINAL Marlene Ramirez [facility] - [place], [address] [place] [id number] 0 Phone: () - 04/18 CBC w/ auto diff MCH pg 26.0 35.0 28.9 FINAL Marlene Guzmán [facility] - [place], [address] [place] [id number] 0 Phone: () - 04/18 CBC w/ auto diff MCHC g/dL 30.0 35.0 34.7 FINAL Marlene Guzmán [facility] - [place], [address] [place] [id number] 0 Phone: () - 04/18 CBC w/ auto diff MPV fL 9.5 13.4 9.7 FINAL Marlene Guzmán [facility] - [place], [address] [place] [id number] 0 Phone: () - 04/18 CBC w/ auto diff RDW % 11.4 16.1 13.80 FINAL Marlene Guzmán [facility] [place], [address] [facility] [place] [id number] 0 Phone: ( 04/18 CMP Album in g/dL 3.5 5.0 4.0 FINAL Marlene Guzmán * [facility] [place], [address] [facility] [id number] 0 04/18 CMP Alkal ine phosp hatas e U/L 36.0 125.0 105 FINAL Marlene Guzmán * [facility], [address] [facility] [id number] 0 04/18 CMP ALT/S GPT U/L 0.0 34.0 35 High FINAL Marlene Guzmán * [facility], [address] [facility] [id number] 0 04/18 CMP AST/S GOT U/L 14.0 36.0 44 High FINAL Marlene Guzmán * [facility], [address] [facility] [id number] 0 04/18 CMP BUN mg/dL 7.0 17.0 21.0 High FINAL Marlene Guzmán * [facility], [address] [facility] [id number] 0 04/18 CMP Calci um mg/dL 8.4 10.2 8.8 FINAL Marlene Guzmán * [facility], [address] [facility] [id number] 0 04/18 CMP Chlor nilson mmol/L 96.0 107.0 106 FINAL Marlene Guzmán * [facility], [address] [facility] [id number] 0 04/18 CMP CO2 mmol/L 22.0 30.0 [...] 96 hour stability window. FINAL [facility]lene [facility]oud [facility], [facility]0 [facility] [address] [id number] 0 04/18 CMP Creat inine mg/dL 0.66 1.25 0.70 FINAL Marlene Guzmán * [facility], [address] [place] [address] [id number] 0 04/18 CMP GFR estim ate ml/min /1.73m ^2 97.7 GFR is calculate d using the CKD-EPI equation. FINAL Marlene Stroud [facility], [facility]0 [facility] [address] [id number] 0 04/18 CMP Gluco se mg/dL 74.0 100.0 267 High FINAL Marlene Stroud [facility], [facility] [address] [place] [address] [id number] 0 04/18 CMP Potas sium mmol/L 3.5 5.1 4.0 FINAL Marlene Stroud [facility], [facility] [address] [id number] 0 04/18 CMP Sodiu m mmol/L 137.0 145.0 136 Low FINAL Marlene Stroud [facility], [facility] [address] [id number] 0 04/18 CMP Bilir ubin, total mg/dL 0.2 1.3 1.0 FINAL Marlene Stroud [facility], [address] [facility] [address] [id number] 0 04/18 CMP Total prote in g/dL 6.3 8.2 7.3 FINAL Marlene Guzmán * [facility] [place], [address] [facility] [address] [id number] 0 04/18 [facility] other lab See elastic attacher zigzag d 12/20 [facility] other lab See elastic attacher zigzag d 12/20 [facility] other lab See elastic attacher zigzag d 03/09 Free kappa / lambd a with K/L ratio , serum [place] light chain , free, serum , mg/dL mg/dL 0.33 1.94 4.35 High Test performed at [facility] on a Binding Site Optilite Analyzer that uses a turbidime tric method for analysis. Patient testing should not be performed using multiple methodolo gies due to analytica l variation seen between test methodolo gies. FINAL Marlene Guzmán * [facility] , [address] [facility] [address] [id number] 0 03/09 Free kappa / lambd a [...] test methodolo gies. FINAL Marlene Guzmán * [facility] , [address] [facility] [address] [id number] 0 03/09 Free kappa / lambd a with K/L ratio , serum K/L light chain ratio , free, serum 0.26 1.65 1.14% FINAL Marlene Guzmán * [facility] , [address] [facility] [address] [id number] 0 03/09 CMP Album in g/dL 3.5 5.0 3.8 FINAL Marlene Guzmán * [facility] , [address] [facility] [id number] 0 03/09 CMP Alkal ine phosp hatas e U/L 36.0 125.0 106 FINAL Marleneanabel Guzmán * [facility] , [address] [facility] [id number] 0 03/09 CMP ALT/S GPT U/L 0.0 34.0 37 High FINAL Marlene Guzmán * [facility] , [address] [facility] [id number] 0 03/09 CMP AST/S GOT U/L 14.0 36.0 36 FINAL Marlene Guzmán * [facility] , [address] [facility] [id number] 0 03/09 CMP BUN mg/dL 7.0 17.0 18.0 High FINAL Marlene Guzmán * [facility] , [address] [facility] [id number] 0 03/09 CMP Calci um mg/dL 8.4 10.2 8.9 FINAL Marleneanabel Guzmán * [facility] , [address] [facility] [id number] 0 03/09 CMP Chlor nilson mmol/L 96.0 107.0 99 FINAL Marleneanabel Guzmán * [facility] , [address] [facility] [id number] 0 03/09 CMP CO2 mmol/L 22.0 30.0 [...] hour stability window. FINAL Marleneanabel Guzmán * [facility] , [address] [facility] [id number] 0 03/09 CMP Creat inine mg/dL 0.66 1.25 0.70 FINAL Marleneanabel Guzmán * [facility] , [address] [facility] [id number] 0 03/09 CMP GFR estim ate ml/min /1.73m ^2 97.1 GFR is calculate d using the CKD-EPI equation. FINAL Marleneanabel Guzmán * [facility] , [address] [facility] [id number] 0 03/09 CMP Gluco se mg/dL 74.0 100.0 363 Criti sami High FINAL Marlene Guzmán * [facility] , [address] [facility] [id number] 0 03/09 CMP Potas sium mmol/L 3.5 5.1 3.9 FINAL Marlene Ramirez * [facility] , [address] [facility] [id number] 0 03/09 CMP Sodiu m mmol/L 137.0 145.0 134 Low FINAL Marleneanabel Guzmán * [facility] , [address] [facility] [id number] 0 03/09 CMP Bilir ubin, total mg/dL 0.2 1.3 1.1 FINAL Marleneanabel Guzmán * [facility] , [address] [facility] [address] [facility] [id number] 0 03/09 CMP Total prote in g/dL 6.3 8.2 7.3 FINAL Marlene Guzmán * [facility] , [address] [facility] [id number] 0 03/09 CBC w/ auto diff WBC K/uL 3.0 8.9 7.1 FINAL Marlene Guzmán [place] [facility] [place] [facility] , [address] [place] [id number] 0 03/09 CBC w/ auto diff HGB g/dL 11.3 15.2 14.4 FINAL Marlene Guzmán [place] [facility] [place] [facility] , [address] [place] [id number] 0 03/09 CBC w/ auto diff PLT K/uL 113.0 364.0 179 FINAL Marlene Guzmán [place] [facility] [place] [facility] , [address] [place] [id number] 0 03/09 CBC w/ auto diff Tammy # (ANC) K/uL 1.6 6.6 4.7 FINAL Marlene Guzmán [facility] [place] [facility] , [address] [place] [id number] 0 03/09 CBC w/ auto diff Tammy % % 43.0 74.0 65.7 FINAL Marlene Guzmán [place] [facility] [place] [facility] , [address] [place] [id number] 0 03/09 CBC w/ auto diff IG % % 0.0 0.5 0.6 High FINAL Marlene Guzmán [place] [facility] [place] [facility] , [address] [place] [id number] 0 03/09 CBC w/ auto diff IG # K/uL 0.0 0.03 0.04 High FINAL Marlene Guzmán [place] [facility] [place] [facility] , [address] [place] [id number] 0 03/09 CBC w/ auto diff LY % % 14.0 41.0 25.8 FINAL Marlene Guzmán [place] [facility] [place] [facility] , [address] [place] [id number] 0 03/09 CBC w/ auto diff MO % % 6.0 15.0 6.2 FINAL Marlene Guzmán [place] [facility] [place] [facility] , [address] [place] [id number] 0 03/09 CBC w/ auto diff EO % % 0.0 7.0 1.1 FINAL Marlene Guzmán [place] [facility] [place] [facility] , [address] [place] [id number] 0 03/09 CBC w/ auto diff BA % % 0.0 2.0 0.6 FINAL Marlene Guzmán [place] [facility] [place] [facility] , [address] [place] [id number] 0 03/09 CBC w/ auto diff LY # K/uL 0.4 3.6 1.8 FINAL Marlene Guzmán [place] [facility] [place] [facility] , [address] [place] [id number] 0 03/09 CBC w/ auto diff MO # K/uL 0.2 1.3 0.4 FINAL Marlene Guzmán [place] [facility] [place] [facility] , [address] [place] [id number] 0 03/09 CBC w/ auto diff EO # K/uL 0.0 0.6 0.1 FINAL Marlene Guzmán [place] [facility] [place] [facility] , [address] [place] [id number] 0 03/09 CBC w/ auto diff BA # K/uL 0.0 0.2 0.0 FINAL Marlene Guzmán [place] [facility] [place] [facility] , [address] [place] [id number] 0 03/09 CBC w/ auto diff NRBC % #/100W BC 0.0 0.2 0.0 FINAL Marlene Guzmán [place] [facility] [place] [facility] , [address] [place] [id number] 0 03/09 CBC w/ auto diff RBC M/uL 3.9 5.1 5.08 FINAL Marlene Guzmán [place] [facility] [place] [facility] , [address] [place] [id number] 0 03/09 CBC w/ auto diff HCT % 35.0 48.0 42.9 FINAL Marlene Guzmán [facility] [place] [facility] , [address] [place] [id number] 0 03/09 CBC w/ auto diff MCV fL 80.0 104.0 84.4 FINAL Marlene Guzmán [facility] [place] [facility] , [address] [place] [id number] 0 03/09 CBC w/ auto diff MCH pg 26.0 35.0 28.3 FINAL Marlene Guzmán [facility] [place] [facility] , [address] [place] [id number] 0 03/09 CBC w/ auto diff MCHC g/dL 30.0 35.0 33.6 FINAL Marlene Guzmán [facility] [place] [facility] , [address] [place] [id number] 0 03/09 CBC w/ auto diff MPV fL 9.5 13.4 9.6 FINAL Marlene Guzmán [place] [facility] [place] [facility] , [address] [place] [id number] 0 03/09 CBC w/ auto diff RDW % 11.4 16.1 14.20 FINAL Marlene Guzmán [facility] , [address] [facility] [id number] 0 03/09 Total prote in g/dL 6.3 8.2 7.1 FINAL Marlene Guzmán * [facility] , [address] [facility] [address] [facility] [id number] 0 03/09 Album in, SPE g/dL 3.31 5.31 4.70 FINAL Marlene Guzmán * [facility] , [address] [facility] [address] [id number] 0 03/09 Alpha -1 globu tony g/dL 0.19 0.42 0.23 FINAL Marlene Guzmán * [facility] , [address] [id number] 0 03/09 Alpha -2 globu tony g/dL 0.44 1.03 0.52 FINAL Marlene Guzmán * [facility] , [address] [id number] 0 03/09 Beta globu tony g/dL 0.52 1.05 0.80 FINAL Marlene Guzmán * [facility] , [address] [id number] 0 03/09 Gamma globu tony g/dL 0.59 1.46 0.85 FINAL Marlene Guzmán * [facility] , [address] [id number] 0 03/09 Gemma Rodriguez in Lab resul t note Previou sly identif ied parapro teins detecte d in gamma region. Is now 0.3 and 0.4 gm/dL. Interpr eted and signed by Luis Guillermo MD on 025 FINAL Marlene Guzmán * [facility] , [address] [facility] [id number] 0 03/09 M-spi ke, SPE, g/dL g/dL 0.0 0.0 0.3 High FINAL Marlene Guzmán * [facility] , [address] [facility] [id number] 0 03/09 M-spi ke 2, SPE g/dL 0.0 0.0 0.4 High FINAL Marlene Guzmán * [facility] , [address] [facility] [place] [id number] 0 03/09 Immun oglob ulin measu remen t IgG, quant mg/dL 610.0 1616.0 1080.49 Test performed at [facility] on a Binding Site Optilite Analyzer that uses a turbidime tric method for analysis. Patient testing should not be performed using multiple methodolo gies due to analytica l variation seen between test methodolo gies. FINAL Marlene Guzmán * [facility] , [address] [facility] [place] [id number] 0 03/09 Immun oglob ulin measu remen t IgA, quant mg/dL 61.0 348.0 577.26 High Test performed at [facility] on a Binding Site Optilite Analyzer that uses a turbidime tric method for analysis. Patient testing should not be performed using multiple methodolo gies due to analytica l variation seen between test methodolo gies. FINAL Marlene Guzmán * [facility] , [address] [facility] [place] [id number] 0 03/09 Immun oglob ulin measu remen t IgM, quant mg/dL 35.0 242.0 91.00 Test performed at [facility] on a Binding Site Optilite Analyzer that uses a turbidime tric method for analysis. Patient testing should not be performed using multiple methodolo gies due to analytica l variation seen between test methodolo josefina. FINAL Marlene Guzmán * [facility] , [address] [facility] [place] [id number] 0 04/03 [facility] other lab See attache malave Medications Date [...] 04/10/2025 Body Temperature 97.50 Notes Section * [facility]NA[facility] Onc Consult Note (Amended) GYNECOLOGIC ONCOLOGY CONSULT Patient Name: VERO HERNY Patient : 1960 Patient Referring Physician: Malissa Hernandez MD ([employer]) Primary GYNOncologist: Marlene Guzmán (Hematology/Oncology) Date of Service: 08/03/2023 Reason for Consult: I was asked by Dr. Malissa Hernandez to see Vero Henry in regard to a recent diagnosis of EIN/CAH. History of Present Illness ([facility]): 63 y.o.?? * Presented with c/o [...] with myosure * Pathology:?? 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 Anxious, , female with somewhat [...] record:05/23/2019 Last record:05/23/2019; ) Assessment & Plan ([facility]): 63?? y.o. with abnormal uterine bleeding/PMB [...] signed by Abbie Gallo MD 08/03/2023 12:46 [employer]
[2025-07-06 23:38] LABS: Blood Urea Nitrogen* 22 mg/dL (7-30); Creatinine* 0.7 mg/dL (0.5-1.5); Est. Creatinine Clearance* 53.91; Estimated Glomerular Filt Rate 97 ml/min
--- OUTSIDE RECORDS SUMMARY | 2025-07-06 23:38 | XMS_ITS ---
Author Name Interface, [id number] lity Address [address] [facility] [address] [place] [address] [facility] Address [address] [facility] [address] [place] [address] Support Name Relationship Address Phone Greg Henry [...] Ordered By Specimen Source Lab Address 11/05 [facility] [place] other lab See telegraph repeater technician d 11/08 Mis other lab See telegraph repeater technician d 11/22 Color (ua) Yellow FINAL [facility] [place], [address] [facility] [address] [place] [phone] 0 Phone: () - 11/22 Appea ying (ua) Clear FINAL [facility] [place], [address] [facility] [address] [place] [phone] 0 Phone: () - 11/22 Gluco se (ua), qual 500.0% Abnor mal FINAL [facility] [place], [address] [facility] [address] [place] [phone] 0 Phone: () - 11/22 Bilir ubin (ua) Negativ e FINAL [facility] [place], [address] [facility] [address] [place] [phone] 0 Phone: () - 11/22 Urina lysis , aceto ne or keton e chapo s measu remen t Negativ e FINAL [facility] [place], [address] [facility] [address] [place] [phone] 0 Phone: () - 11/22 Speci fic gravi ty (ua) 1.005 1.02 1.025% Abnor mal FINAL [facility] [place], [address] [facility] [address] [place] [phone] 0 Phone: () - 11/22 Blood (ua) Negativ e FINAL [facility] [place], [address] [facility] [address] [place] [phone] 0 Phone: () - 11/22 pH (ua) 5.0 8.0 6.0% FINAL [facility] [place], [address] [facility] [address] [place] [phone] 0 Phone: () - 11/22 Prote in (ua) Negativ e FINAL [facility] [place], [address] [place] [address] [address] [place] [phone] 0 Phone: () - 11/22 Urobi linog en (ua) 0.2 1.0 0.2% FINAL [facility] [place], [address] [place] [address] [address] [place] [phone] 0 Phone: () - 11/22 Nitri te (ua) Negativ e FINAL [facility] [place], [address] [facility] [address] [place] [phone] 0 Phone: () - 11/22 Leuko cyte jerson ase (ua), qual Negativ e FINAL [facility] [place], [address] [facility] [address] [place] [phone] 0 Phone: () - 11/22 UA comme nt 1 Dipstic k negativ e- Culture ordered per provide r FINAL [facility] [place], [address] [facility] [address] [facility] [id number] 0 Phone: () - 11/22 Urine cultu re panel CULTU RE, URINE , ROUTI NE SEE NOTE Abnor mal CULTURE, URINE, ROUTINEMi crotch piece baster Number: [id number] est Status: FinalSpec imen Source: UrineSpec imen [...] [facility] [address] [facility] [id number] 4 12/18 [facility] other lab See telegraph repeater technician d 04/18 Total prote in g/dL 6.3 8.2 6.9 FINAL Marlene Ramirez * [facility], [address] [id number] 0 04/18 Album in, SPE g/dL 3.31 5.31 3.97 FINAL Marlene Guzmán * [facility], [address] [id number] 0 04/18 Alpha -1 globu tony g/dL 0.19 0.42 0.26 FINAL Marlene Guzmán * [facility], [address] [id number] 0 04/18 Alpha -2 globu tony g/dL 0.44 1.03 0.63 FINAL Marlene Guzmán * [facility], [address] [id number] 0 04/18 Beta globu tony g/dL 0.52 1.05 0.95 FINAL Marlene Ramirez * [facility], [address] [id number] 0 04/18 Gamma globu tony g/dL 0.59 1.46 1.10 FINAL Marlene Guzmán * [facility], [address] [id number] 0 04/18 Gemma Rodriguez in Lab resul t note Previou sly identif ied parapro teins detecte d in gamma region. Were 0.3 and 0.4 gm/dL, now 0.3 and 0.3 gm/dL. Interpr eted and signed by Adrienne Swanson MD on 024 FINAL Marlene Guzmán * [facility], [address] [facility] [address] [id number] 0 04/18 M-spi ke, SPE, g/dL g/dL 0.0 0.0 0.3 High FINAL Marlene Guzmán * [facility], [address] [facility] [address] [id number] 0 04/18 M-spi ke 2, SPE g/dL 0.0 0.0 0.3 High FINAL Marleneanabel Guzmán * [facility], [facility] [address] [place] [address] [id number] 0 04/18 Immun oglob ulin measu remen t IgG, quant mg/dL 610.0 1616.0 946.67 Test performed at [facility] on a Binding [place] CSHub Optilite Analyzer that uses a turbidime tric method for analysis. Patient testing should not be performed using multiple methodolo gies due to analytica l variation seen between test methodolo gies. FINAL Marleneanabel Guzmán * [facility], [facility] [address] [place] [address] [id number] 0 04/18 Immun oglob ulin measu remen t IgA, quant mg/dL 61.0 348.0 493.08 High Test performed at [facility] on a Binding [place] CSHub Optilite Analyzer that uses a turbidime tric method for analysis. Patient testing should not be performed using multiple methodolo gies due to analytica l variation seen between test methodolo gies. FINAL Marlene Guzmán * [facility], [address] [place] [address] [place] [address] [id number] 0 04/18 Immun oglob ulin measu remen t IgM, quant mg/dL 35.0 242.0 75.62 Test performed at [facility] on a Binding Site Optilite Analyzer that uses a turbidime tric method for analysis. Patient testing should not be performed using multiple methodolo gies due to analytica l variation seen between test methodolo gies. FINAL Marlene [facility], [facility]0 [facility] [address] [id number] 0 04/18 Free kappa / lambd a with K/L ratio , serum [place] light chain , free, serum , mg/dL mg/dL 0.33 1.94 3.62 High Test performed at [facility] on a Binding Site Optilite Analyzer that uses a turbidime tric method for analysis. Patient testing should not be performed using multiple methodolo gies due to analytica l variation seen between test methodolo gies. FINAL Marlene Rubi a [facility], [address] [id number] 0 04/18 Free kappa / lambd a with K/L ratio , serum Lambd a light chain , free, serum , mg/dL mg/dL 0.57 2.63 3.13 High Test performed at [facility] on a Binding [place] CSHub Optilite Analyzer that uses a turbidime tric method for analysis. Patient testing should not be performed using multiple methodolo gies due to analytica l variation seen between test methodolo gies. FINAL Marlene Rubi a [facility], [address] [id number] 0 04/18 Free kappa / lambd a with K/L ratio , serum K/L light chain ratio , free, serum 0.26 1.65 1.16% FINAL Marlene [facility], [address] [id number] 0 04/18 CBC w/ auto diff WBC K/uL 3.0 8.9 7.0 FINAL Marlene Rubi [facility], [address] [facility] [id number] 0 Phone: () - 04/18 CBC w/ auto diff HGB g/dL 11.3 15.2 14.0 FINAL [facility] [place], [address] [place] [id number] 0 Phone: () - 04/18 CBC w/ auto diff PLT K/uL 113.0 364.0 164 FINAL [facility] [place], [address] [place] [id number] 0 Phone: () - 04/18 CBC w/ auto diff Tammy # (ANC) K/uL 1.6 6.6 4.5 FINAL Marlene [facility] - [place], [address] [place] [id number] 0 Phone: () - 04/18 CBC w/ auto diff Tammy % % 43.0 74.0 64.0 FINAL Marlene [facility] - [place], [address] [place] [id number] 0 Phone: () - 04/18 CBC w/ auto diff IG % % 0.0 0.5 0.3 FINAL [facility] - [place], [address] [place] [id number] 0 Phone: () - 04/18 CBC w/ auto diff IG # K/uL 0.0 0.03 0.02 FINAL [facility] - [place], [address] [place] [id number] 0 Phone: () - 04/18 CBC w/ auto diff LY % % 14.0 41.0 28.2 FINAL Marlene Rubi [facility] - [place], [address] [place] [id number] 0 Phone: () - 04/18 CBC w/ auto diff MO % % 6.0 15.0 6.0 FINAL Marlene Guzmán [facility] - [place], [address] [place] [id number] 0 Phone: () - 04/18 CBC w/ auto diff EO % % 0.0 7.0 1.1 FINAL [facility] - [place], [address] [place] [id number] 0 Phone: () - 04/18 CBC w/ auto diff BA % % 0.0 2.0 0.4 FINAL [facility] - [place], [address] [place] [id number] 0 Phone: () - 04/18 CBC w/ auto diff LY # K/uL 0.4 3.6 2.0 FINAL Marlene Guzmán [facility] - [place], [address] [place] [id number] 0 Phone: () - 04/18 CBC w/ auto diff MO # K/uL 0.2 1.3 0.4 FINAL Marlene Ramirez [facility] [place], [address] [place] [id number] 0 Phone: () - 04/18 CBC w/ auto diff EO # K/uL 0.0 0.6 0.1 FINAL Marlene Ramirez [facility] - [place], [address] [place] [id number] 0 Phone: () - 04/18 CBC w/ auto diff BA # K/uL 0.0 0.2 0.0 FINAL Marlene Ramirez [facility] - [place], [address] [place] [id number] 0 Phone: () - 04/18 CBC w/ auto diff NRBC % #/100W BC 0.0 0.2 0.0 FINAL Marlene Guzmán [facility] - [place], [address] [place] [id number] 0 Phone: () - 04/18 CBC w/ auto diff RBC M/uL 3.9 5.1 4.84 FINAL Marlene Guzmán [facility] - [place], [address] [place] [id number] 0 Phone: () - 04/18 CBC w/ auto diff HCT % 35.0 48.0 40.4 FINAL Marlene Rubi [facility] - [place], [address] [place] [id number] 0 Phone: () - 04/18 CBC w/ auto diff MCV fL 80.0 104.0 83.5 FINAL Marlene [facility] - [place], [address] [place] [id number] 0 Phone: () - 04/18 CBC w/ auto diff MCH pg 26.0 35.0 28.9 FINAL Marlene Rubi a [facility] - [place], [address] [place] [id number] 0 Phone: () - 04/18 CBC w/ auto diff MCHC g/dL 30.0 35.0 34.7 FINAL Marlene Rubi a [facility] - [place], [address] [place] [id number] 0 Phone: () - 04/18 CBC w/ auto diff MPV fL 9.5 13.4 9.7 FINAL Marlene Rubi [facility] - [place], [address] [place] [id number] 0 Phone: () - 04/18 CBC w/ auto diff RDW % 11.4 16.1 13.80 FINAL Marlene Rubi a [facility] - [place], [address] [place] [id number] 0 Phone: () - 04/18 CMP Album in g/dL 3.5 5.0 4.0 FINAL Marlene Guzmán * [facility] [place], [address] [place] [id number] 0 04/18 CMP Alkal ine phosp hatas e U/L 36.0 125.0 105 FINAL Marlene Guzámn * [facility] [place], [address] [facility] [id number] 0 04/18 CMP ALT/S GPT U/L 0.0 34.0 35 High FINAL Marlene Guzmán * [facility], [address] [facility] [id number] 0 04/18 CMP AST/S GOT U/L 14.0 36.0 44 High FINAL Marlene Guzmán * [facility], [address] [facility] [id number] 0 04/18 CMP BUN mg/dL 7.0 17.0 21.0 High FINAL Marlene Guzmán * [facility], [address] [facility] [id number] 0 04/18 CMP Calci um mg/dL 8.4 10.2 8.8 FINAL Marlene Guzmán * [facility], [address] [facility] [id number] 0 04/18 CMP Chlor nilson mmol/L 96.0 107.0 106 FINAL Marlene Guzmán * [facility], [address] [facility] [id number] 0 04/18 CMP CO2 mmol/L 22.0 30.0 [...] hour stability window. FINAL Marlene Guzmán * [facility], [address] [facility] [id number] 0 04/18 CMP Creat inine mg/dL 0.66 1.25 0.70 FINAL Marlene Guzmán * [facility], [address] [facility] [address] [id number] 0 04/18 CMP GFR estim ate ml/min /1.73m ^2 97.7 GFR is calculate d using the CKD-EPI equation. FINAL Marlene Stroud [facility], [address] [facility] [address] [id number] 0 04/18 CMP Gluco se mg/dL 74.0 100.0 267 High FINAL Marlene Guzmán * [facility], [facility] [address] [id number] 0 04/18 CMP Potas sium mmol/L 3.5 5.1 4.0 FINAL Marlene Guzmán * [facility], [address] [facility] [address] [id number] 0 04/18 CMP Sodiu m mmol/L 137.0 145.0 136 Low FINAL Marlene Guzmán * [facility], [address] [facility] [address] [id number] 0 04/18 CMP Bilir ubin, total mg/dL 0.2 1.3 1.0 FINAL Marlene Guzmán * [facility], [address] [facility] [facility] [address] [id number] 0 04/18 CMP Total prote in g/dL 6.3 8.2 7.3 FINAL Marlene Guzmán * [facility], [address] [facility] [facility] [address] [id number] 0 04/18 [facility] other lab See telegraph repeater technician d 12/20 Mis other lab See telegraph repeater technician d 12/20 [facility] other lab See telegraph repeater technician d 03/09 Free kappa / lambd a with K/L ratio , serum [place] light chain , free, serum , mg/dL mg/dL 0.33 1.94 4.35 High Test performed at [facility] on a Binding Site Optilite Analyzer that uses a turbidime tric method for analysis. Patient testing should not be performed using multiple methodolo gies due to analytica l variation seen between test methodolo gies. FINAL Marlene Guzmán * [facility] , [address] [facility] [address] [facility] [id number] 0 03/09 Free kappa / lambd a [...] gies. FINAL Marlene Guzmán * [facility] , [address] [facility] [address] [id number] 0 03/09 Free kappa / lambd a with K/L ratio , serum K/L light chain ratio , free, serum 0.26 1.65 1.14% FINAL Marlene Guzmán * [facility] , [address] [facility] [address] [id number] 0 03/09 CMP Album in g/dL 3.5 5.0 3.8 FINAL Marlene Guzmán * [facility] , [address] [facility] [address] [id number] 0 03/09 CMP Alkal ine phosp hatas e U/L 36.0 125.0 106 FINAL Marlene Guzmán * [facility] , [address] [facility] [address] [facility] [id number] 0 03/09 CMP ALT/S GPT U/L 0.0 34.0 37 High FINAL Marlene Guzmán * [facility] , [address] [facility] [id number] 0 03/09 CMP AST/S GOT U/L 14.0 36.0 36 FINAL Marlene Guzmán * [facility] , [address] [facility] [id number] 0 03/09 CMP BUN mg/dL 7.0 17.0 18.0 High FINAL Marlene Guzmán * [facility] , [address] [facility] [id number] 0 03/09 CMP Calci um mg/dL 8.4 10.2 8.9 FINAL Marlene Guzmán * [facility] , [address] [facility] [id number] 0 03/09 CMP Chlor nilson mmol/L 96.0 107.0 99 FINAL Marlene Guzmán * [facility] , [address] [facility] [id number] 0 03/09 CMP CO2 mmol/L 22.0 30.0 [...] hour stability window. FINAL Marleneanabel Guzmán * [facility] , [address] [facility] [id number] 0 03/09 CMP Creat inine mg/dL 0.66 1.25 0.70 FINAL Marlene Guzmán * [facility] , [address] [facility] [id number] 0 03/09 CMP GFR estim ate ml/min /1.73m ^2 97.1 GFR is calculate d using the CKD-EPI equation. FINAL Marlene Ramirez * [facility] , [address] [facility] [id number] 0 03/09 CMP Gluco se mg/dL 74.0 100.0 363 Criti sami High FINAL Marlene Ramirez * [facility] , [address] [facility] [id number] 0 03/09 CMP Potas sium mmol/L 3.5 5.1 3.9 FINAL Marlene Ramirez * [facility] , [address] [facility] [id number] 0 03/09 CMP Sodiu m mmol/L 137.0 145.0 134 Low FINAL Marlene Ramirez * [facility] , [address] [facility] [id number] 0 03/09 CMP Bilir ubin, total mg/dL 0.2 1.3 1.1 FINAL Marlene Ramirez * [facility] , [address] [facility] [id number] 0 03/09 CMP Total prote in g/dL 6.3 8.2 7.3 FINAL Marlene Guzmán * [facility] , [address] [facility] [id number] 0 03/09 CBC w/ auto diff WBC K/uL 3.0 8.9 7.1 FINAL Marelne Guzmán [place] [facility] [place] [facility] , [address] [place] [id number] 0 03/09 CBC w/ auto diff HGB g/dL 11.3 15.2 14.4 FINAL Marlene Guzmán [place] [facility] [place] [facility] , [address] [place] [id number] 0 03/09 CBC w/ auto diff PLT K/uL 113.0 364.0 179 FINAL Marlene Guzmán [place] [facility] [place] [facility] , [address] [place] [id number] 0 03/09 CBC w/ auto diff Tammy # (ANC) K/uL 1.6 6.6 4.7 FINAL Marlene Guzmán [place] [facility] [place] [facility] , [address] [place] [id number] 0 03/09 CBC w/ auto diff Tammy % % 43.0 74.0 65.7 FINAL Marlene Guzmán [place] [facility] [place] [facility] , [address] [place] [id number] 0 03/09 CBC w/ auto diff IG % % 0.0 0.5 0.6 High FINAL Marlene Guzmán [place] [facility] , [address] [place] [id number] 0 03/09 CBC w/ auto diff IG # K/uL 0.0 0.03 0.04 High FINAL Marlene Guzmán [place] [facility] [place] [facility] , [address] [place] [id number] 0 03/09 CBC w/ auto diff LY % % 14.0 41.0 25.8 FINAL Marlene Guzmán [place] [facility] [place] [facility] , [address] [place] [id number] 0 03/09 CBC w/ auto diff MO % % 6.0 15.0 6.2 FINAL Marlene Guzmán [place] [facility] [place] [facility] , [address] [place] [id number] 0 03/09 CBC w/ auto diff EO % % 0.0 7.0 1.1 FINAL Marlene Guzmán [place] [facility] [place] [facility] , [address] [place] [id number] 0 03/09 CBC w/ auto diff BA % % 0.0 2.0 0.6 FINAL Marlene Guzmán [place] [facility] [place] [facility] , [address] [place] [id number] 0 03/09 CBC w/ auto diff LY # K/uL 0.4 3.6 1.8 FINAL Marlene Guzmán [place] [facility] [place] [facility] , [address] [place] [id number] 0 03/09 CBC w/ auto diff MO # K/uL 0.2 1.3 0.4 FINAL Marlene Guzmán [place] [facility] [place] [facility] , [address] [place] [id number] 0 03/09 CBC w/ auto diff EO # K/uL 0.0 0.6 0.1 FINAL Marlene Guzmán [place] [facility] [place] [facility] , [address] [place] [id number] 0 03/09 CBC w/ auto diff BA # K/uL 0.0 0.2 0.0 FINAL Marlene Guzmán [place] [facility] [place] [facility] , [address] [place] [id number] 0 03/09 CBC w/ auto diff NRBC % #/100W BC 0.0 0.2 0.0 FINAL Marlene Guzmán [place] [facility] [place] [facility] , [address] [place] [id number] 0 03/09 CBC w/ auto diff RBC M/uL 3.9 5.1 5.08 FINAL Marlene Guzmán [place] [facility] [place] [facility] , [address] [place] [id number] 0 03/09 CBC w/ auto diff HCT % 35.0 48.0 42.9 FINAL Marlene Guzmán [place] [facility] [place] [facility] , [address] [place] [id number] 0 03/09 CBC w/ auto diff MCV fL 80.0 104.0 84.4 FINAL Marlene Guzmán [place] [facility] [place] [facility] , [address] [place] [id number] 0 03/09 CBC w/ auto diff MCH pg 26.0 35.0 28.3 FINAL Marlene Guzmán [place] [facility] [place] [facility] , [address] [place] [id number] 0 03/09 CBC w/ auto diff MCHC g/dL 30.0 35.0 33.6 FINAL Marlene Guzmán [place] [facility] , [address] [place] [id number] 0 03/09 CBC w/ auto diff MPV fL 9.5 13.4 9.6 FINAL Marlene Guzmán [place] [facility] [place] [facility] , [address] [place] [id number] 0 03/09 CBC w/ auto diff RDW % 11.4 16.1 14.20 FINAL Marlene Guzmán [place] [facility] [place] [facility] , [address] [place] [id number] 0 03/09 Total prote in g/dL 6.3 8.2 7.1 FINAL Marlene Guzmán * [place] [facility] [place] [facility] , [address] [place] [id number] 0 03/09 Album in, SPE g/dL 3.31 5.31 4.70 FINAL Marlene Guzmán * [facility] , [address] [id number] 0 03/09 Alpha -1 globu tony g/dL 0.19 0.42 0.23 FINAL Marlene Guzmán * [facility] , [address] [facility] [id number] 0 03/09 Alpha -2 globu tony g/dL 0.44 1.03 0.52 FINAL Marlene Guzmán * [facility] , [address] [id number] 0 03/09 Beta globu tony g/dL 0.52 1.05 0.80 FINAL Marlene Guzmán * [facility] , [address] [id number] 0 03/09 Gamma globu tony g/dL 0.59 1.46 0.85 FINAL Marlene Guzmán * [facility] , [address] [id number] 0 03/09 Elect Gemma layton in Lab resul t note Previou sly identif ied parapro teins detecte d in gamma region. Is now 0.3 and 0.4 gm/dL. Interpr eted and signed by Luis Guillermo MD on 025 FINAL Marlene Guzmán * [facility] , [address] [facility] [id number] 0 03/09 M-spi ke, SPE, g/dL g/dL 0.0 0.0 0.3 High FINAL Marlene Guzmán * [facility] , [address] [id number] 0 03/09 M-spi ke 2, SPE g/dL 0.0 0.0 0.4 High FINAL Marlene Guzmán * [facility] , [address] [facility] [id number] 0 03/09 Immun oglob ulin measu remen t IgG, quant mg/dL 610.0 1616.0 1080.49 Test performed at [facility] on a Binding Site Optilite Analyzer that uses a turbidime tric method for analysis. Patient testing should not be performed using multiple methodolo gies due to analytica l variation seen between test methodolo gies. FINAL Marlene Ramirez * [facility] , [address] [facility] [id number] 0 03/09 Immun oglob ulin measu remen t IgA, quant mg/dL 61.0 348.0 577.26 High Test performed at [facility] on a Binding Site Optilite Analyzer that uses a turbidime tric method for analysis. Patient testing should not be performed using multiple methodolo gies due to analytica l variation seen between test methodolo gies. FINAL Marlene Ramirez * [facility] , [address] [facility] [id number] 0 03/09 Immun oglob ulin measu remen t IgM, quant mg/dL 35.0 242.0 91.00 Test performed at [facility] on a Binding Site Optilite Analyzer that uses a turbidime tric method for analysis. Patient testing should not be performed using multiple methodolo gies due to analytica l variation seen between test methodolo gies. 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 History of Present Illness (Slip Cover Estimator Oncology): 63 y.o.?? 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 Anxious, , female with somewhat [...] record:05/23/2019 Last record:05/23/2019; ) Assessment & Plan (Slip Cover Estimator Oncology): 63?? y.o. 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 Pathology benign. Reviewedpathology, operative findings, expected recovery.?? She is recovering well, no further restrictions.?? She can follow up with PCP/occupational therapy supervisor as needed.? 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
--- OUTSIDE RECORDS SUMMARY | 2025-07-06 23:38 | XMS_ITS ---
Author Name Interface, [id number] lity Address [address] [facility] [address] [place] [address] [facility] Oncology Address [address] [facility] [address] [place] [address] Support Name Relationship Address Phone Greg Henry [...] Ordered By Specimen Source Lab Address 11/05 [facility] other lab See teleprinter d 11/08 Mis other lab See teleprinter d 11/22 Color (ua) Yellow FINAL [facility] [place], [address] [facility] [address] [place] [phone] 0 Phone: () - 11/22 Appea ying (ua) Clear FINAL [facility] [place], [address] [facility] [address] [place] [phone] 0 Phone: () - 11/22 Gluco se (ua), qual 500.0% Abnor mal FINAL [facility] [place], [address] [facility] [address] [place] [id number] 0 Phone: () - 11/22 Bilir ubin (ua) Negativ e FINAL [facility] [place], [address] [facility] [address] [place] [phone] 0 Phone: () - 11/22 Urina lysis , aceto ne or keton e chapo s measu remen t Negativ e FINAL [facility] [place], [address] [facility] [address] [place] [phone] 0 Phone: () - 11/22 Speci fic gravi ty (ua) 1.005 1.02 1.025% Abnor mal FINAL [facility] [place], [address] [facility] [address] [place] [phone] 0 Phone: () - 11/22 Blood (ua) Negativ e FINAL [facility] [place], [address] [facility] [address] [place] [phone] 0 Phone: () - 11/22 pH (ua) 5.0 8.0 6.0% FINAL [facility] [place], [address] [facility] [address] [place] [phone] 0 Phone: () - 11/22 Prote in (ua) Negativ e FINAL [facility] [place], [address] [place] [address] [address] [place] [phone] 0 Phone: () - 11/22 Urobi linog en (ua) 0.2 1.0 0.2% FINAL [facility] [place], [address] [place] [address] [address] [place] [id number] 0 Phone: () - 11/22 Nitri te (ua) Negativ e FINAL [facility] [place], [address] [facility] [address] [place] [phone] 0 Phone: () - 11/22 Leuko cyte jerson ase (ua), qual Negativ e FINAL [facility] [place], [address] [facility] [address] [place] [phone] 0 Phone: () - 11/22 UA comme nt 1 Dipstic k negativ e- Culture ordered per provide r FINAL [facility] [place] [facility] [place], [address] [facility] [address] [facility] [phone] 0 Phone: () - 11/22 Urine cultu re panel CULTU RE, URINE , ROUTI NE SEE NOTE Abnor mal CULTURE, URINE, ROUTINEMi aerial crop duster Number: [id number] est Status: FinalSpec imen Source: UrineSpec imen [...] f. FINAL Hafsa Farrell [facility] [address] [facility] [id number] 4 12/18 [facility] other lab See teleprinter d 04/18 Total prote in g/dL 6.3 8.2 6.9 FINAL Marlene Ramirez * [facility], [address] [id number] 0 04/18 Album in, SPE g/dL 3.31 5.31 3.97 FINAL Marlene Guzmán * [facility], [address] [id number] 0 04/18 Alpha -1 globu tony g/dL 0.19 0.42 0.26 FINAL Marlene Guzmán * [facility], [address] [id number] 0 04/18 Alpha -2 globu tony g/dL 0.44 1.03 0.63 FINAL Marlene Guzmán * [facility], [address] [id number] 0 04/18 Beta globu tony g/dL 0.52 1.05 0.95 FINAL Marlene Ramirez * [facility], [address] [id number] 0 04/18 Gamma globu tony g/dL 0.59 1.46 1.10 FINAL Marlene Guzmán * [facility], [address] [id number] 0 04/18 Gemma Rodriguez in Lab resul t note Previou sly identif ied parapro teins detecte d in gamma region. Were 0.3 and 0.4 gm/dL, now 0.3 and 0.3 gm/dL. Interpr eted and signed by Adrienne Swanson MD on 024 FINAL Marlene Guzmán * [facility], [address] [facility] [address] [id number] 0 04/18 M-spi ke, SPE, g/dL g/dL 0.0 0.0 0.3 High FINAL Marlene Guzmán * [facility], [address] [facility] [address] [id number] 04/18 M-spi ke 2, SPE g/dL 0.0 0.0 0.3 High FINAL Marleneanabel Guzmán * [facility], [facility] [address] [place] [address] [id number] 0 04/18 Immun oglob ulin measu remen t IgG, quant mg/dL 610.0 1616.0 946.67 Test performed at [facility] on a Binding OpenDoor Optilite Analyzer that uses a turbidime tric method for analysis. Patient testing should not be performed using multiple methodolo gies due to analytica l variation seen between test methodolo gies. FINAL Marleneanabel Guzmán * [facility] [address] [place] [address] [id number] 0 04/18 Immun oglob ulin measu remen t IgA, quant mg/dL 61.0 348.0 493.08 High Test performed at [facility] on a Binding OpenDoor Optilite Analyzer that uses a turbidime tric method for analysis. Patient testing should not be performed using multiple methodolo gies due to analytica l variation seen between test methodolo gies. FINAL Marlene Guzmán * [facility], [address] [place] [address] [place] [address] [id number] 0 04/18 Immun oglob ulin measu remen t IgM, quant mg/dL 35.0 242.0 75.62 Test performed at [facility] on a Binding Site Optilite Analyzer that uses a turbidime tric method for analysis. Patient testing should not be performed using multiple methodolo gies due to analytica l variation seen between test methodolo gies. FINAL Marlene Forte a [facility], [facility]0 [facility] [address] [id number] 0 04/18 Free kappa / lambd a with K/L ratio , serum [address] light chain , free, serum , mg/dL mg/dL 0.33 1.94 3.62 High Test performed at [facility] on a Binding Site Optilite Analyzer that uses a turbidime tric method for analysis. Patient testing should not be performed using multiple methodolo gies due to analytica l variation seen between test methodolo gies. FINAL Marlene Rubi a [facility], [address] [facility] [address] [id number] 0 04/18 Free kappa / lambd a with K/L ratio , serum Lambd a light chain , free, serum , mg/dL mg/dL 0.57 2.63 3.13 High Test performed at [facility] on a Binding OpenDoor Optilite Analyzer that uses a turbidime tric method for analysis. Patient testing should not be performed using multiple methodolo gies due to analytica l variation seen between test methodolo gies. FINAL Marlene Rubi a [facility], [address] [id number] 0 04/18 Free kappa / lambd a with K/L ratio , serum K/L light chain ratio , free, serum 0.26 1.65 1.16% FINAL Marlene [facility], [address] [id number] 0 04/18 CBC w/ auto diff WBC K/uL 3.0 8.9 7.0 FINAL Marlene Rubi [facility], [address] [facility] [address] [facility] [id number] 0 Phone: () - 04/18 CBC w/ auto diff HGB g/dL 11.3 15.2 14.0 FINAL [facility]lene [facility] [place], [address] [place] [id number] 0 Phone: () - 04/18 CBC w/ auto diff PLT K/uL 113.0 364.0 164 FINAL Marlene [facility] [place], [address] [place] [id number] 0 Phone: () - 04/18 CBC w/ auto diff Tammy # (ANC) K/uL 1.6 6.6 4.5 FINAL Marlene [facility] - [place], [address] [place] [id number] 0 Phone: () - 04/18 CBC w/ auto diff Tammy % % 43.0 74.0 64.0 FINAL Marlene [facility] - [place], [address] [place] [id number] 0 Phone: () - 04/18 CBC w/ auto diff IG % % 0.0 0.5 0.3 FINAL Marlene [facility] - [place], [address] [place] [id number] 0 Phone: () - 04/18 CBC w/ auto diff IG # K/uL 0.0 0.03 0.02 FINAL Marlene [facility] - [place], [address] [place] [id number] 0 Phone: () - 04/18 CBC w/ auto diff LY % % 14.0 41.0 28.2 FINAL Marlene [facility]i [facility] - [place], [address] [place] [id number] 0 Phone: () - 04/18 CBC w/ auto diff MO % % 6.0 15.0 6.0 FINAL Marlene Guzmán [facility] - [place], [address] [place] [id number] 0 Phone: () - 04/18 CBC w/ auto diff EO % % 0.0 7.0 1.1 FINAL Marlene [facility] - [place], [address] [place] [id number] 0 Phone: () - 04/18 CBC w/ auto diff BA % % 0.0 2.0 0.4 FINAL Mar[facility] - [place], [address] [place] [id number] 0 Phone: () - 04/18 CBC w/ auto diff LY # K/uL 0.4 3.6 2.0 FINAL Marlene Guzmán [facility] [place], [address] [place] [id number] 0 Phone: () - 04/18 CBC w/ auto diff MO # K/uL 0.2 1.3 0.4 FINAL Marlene Ramirez [facility] [place], [address] [place] [id number] 0 Phone: () - 04/18 CBC w/ auto diff EO # K/uL 0.0 0.6 0.1 FINAL Marlene Ramirez [facility] [place], [address] [place] [id number] 0 Phone: () - 04/18 CBC w/ auto diff BA # K/uL 0.0 0.2 0.0 FINAL Marlene Ramirez [facility] - [place], [address] [place] [id number] 0 Phone: () - 04/18 CBC w/ auto diff NRBC % #/100W BC 0.0 0.2 0.0 FINAL Marlene Guzmán [facility] - [place], [address] [place] [id number] 0 Phone: () - 04/18 CBC w/ auto diff RBC M/uL 3.9 5.1 4.84 FINAL Marlene Guzmán [facility] - [place], [address] [place] [id number] 0 Phone: () - 04/18 CBC w/ auto diff HCT % 35.0 48.0 40.4 FINAL Marlene Rubi [facility] - [place], [address] [place] [id number] 0 Phone: () - 04/18 CBC w/ auto diff MCV fL 80.0 104.0 83.5 FINAL Marlene [facility] - [place], [address] [place] [id number] 0 Phone: () - 04/18 CBC w/ auto diff MCH pg 26.0 35.0 28.9 FINAL Marlene Rubi a [facility] - [place], [address] [place] [id number] 0 Phone: () - 04/18 CBC w/ auto diff MCHC g/dL 30.0 35.0 34.7 FINAL Marlene Rubi a [facility] - [place], [address] [place] [id number] 0 Phone: () - 04/18 CBC w/ auto diff MPV fL 9.5 13.4 9.7 FINAL Marlene Rubi [facility] - [place], [address] [place] [id number] 0 Phone: () - 04/18 CBC w/ auto diff RDW % 11.4 16.1 13.80 FINAL Marlene Rubi [facility] - [place], [address] [place] [id number] 0 Phone: () - 04/18 CMP Album in g/dL 3.5 5.0 4.0 FINAL Marlene Guzmán * [facility] [place], [address] [place] [id number] 0 04/18 CMP Alkal ine phosp hatas e U/L 36.0 125.0 105 FINAL Marlene Guzmán * [facility] [place], [address] [facility] [id number] 0 04/18 CMP ALT/S GPT U/L 0.0 34.0 35 High FINAL Marlene Guzmán * [facility], [address] [facility] [id number] 0 04/18 CMP AST/S GOT U/L 14.0 36.0 44 High FINAL Marlene Guzmán * [facility], [address] [facility] [id number] 0 04/18 CMP BUN mg/dL 7.0 17.0 21.0 High FINAL Marlene Guzmán * [facility], [address] [facility] [id number] 0 04/18 CMP Calci um mg/dL 8.4 10.2 8.8 FINAL Marlene Guzmán * [facility], [address] [facility] [id number] 0 04/18 CMP Chlor nilson mmol/L 96.0 107.0 106 FINAL Marlene Guzmán * [facility], [address] [facility] [id number] 0 04/18 CMP CO2 mmol/L 22.0 30.0 [...] hour stability window. FINAL Marlene Guzmán * [facility], [address] [facility] [id number] 0 04/18 CMP Creat inine mg/dL 0.66 1.25 0.70 FINAL Marlene Guzmán * [facility], [address] [facility] [address] [id number] 0 04/18 CMP GFR estim ate ml/min /1.73m ^2 97.7 GFR is calculate d using the CKD-EPI equation. FINAL Marlene Stroud [facility], [address] [facility] [address] [id number] 0 04/18 CMP Gluco se mg/dL 74.0 100.0 267 High FINAL aMrlene Guzmán * [facility], [facility]0 [facility] [address] [id number] 0 04/18 CMP Potas sium mmol/L 3.5 5.1 4.0 FINAL Marlene Guzmán * [facility], [address] [facility] [address] [id number] 0 04/18 CMP Sodiu m mmol/L 137.0 145.0 136 Low FINAL Marlene Guzmán * [facility], [address] [facility] [address] [id number] 0 04/18 CMP Bilir ubin, total mg/dL 0.2 1.3 1.0 FINAL Marlene Guzmán * [facility], [address] [facility] [address] [id number] 0 04/18 CMP Total prote in g/dL 6.3 8.2 7.3 FINAL Marlene Guzmán * [facility], [address] [facility] [address] [id number] 0 04/18 [facility] other lab See teleprinter d 12/20 Mis other lab See teleprinter d 12/20 [facility] other lab See teleprinter d 03/09 Free kappa / lambd a with K/L ratio , serum [address] light chain , free, serum , mg/dL mg/dL 0.33 1.94 4.35 High Test performed at [facility] on a Binding Site Optilite Analyzer that uses a turbidime tric method for analysis. Patient testing should not be performed using multiple methodolo gies due to analytica l variation seen between test methodolo gies. FINAL Marlene Guzmán * [facility] , [address] [facility] [address] [facility] [id number] 0 03/09 Free kappa / lambd a [...] test methodolo gies. FINAL Marlene Guzmán * [facility] , [address] [facility] [address] [id number] 0 03/09 Free kappa / lambd a with K/L ratio , serum K/L light chain ratio , free, serum 0.26 1.65 1.14% FINAL Marlene Guzmán * [facility] , [address] [facility] [address] [id number] 0 03/09 CMP Album in g/dL 3.5 5.0 3.8 FINAL Marlene Guzmán * [facility] , [address] [facility] [address] [id number] 0 03/09 CMP Alkal ine phosp hatas e U/L 36.0 125.0 106 FINAL Marlene Guzmán * [facility] , [address] [facility] [address] [facility] [id number] 0 03/09 CMP ALT/S GPT U/L 0.0 34.0 37 High FINAL Marlene Guzmán * [facility] , [address] [facility] [id number] 0 03/09 CMP AST/S GOT U/L 14.0 36.0 36 FINAL Marlene Guzmán * [facility] , [address] [facility] [id number] 0 03/09 CMP BUN mg/dL 7.0 17.0 18.0 High FINAL Marlene Guzmán * [facility] , [address] [facility] [id number] 0 03/09 CMP Calci um mg/dL 8.4 10.2 8.9 FINAL Marlene Guzmán * [facility] , [address] [facility] [id number] 0 03/09 CMP Chlor nilson mmol/L 96.0 107.0 99 FINAL Marlene Guzmán * [facility] , [address] [facility] [id number] 0 03/09 CMP CO2 mmol/L 22.0 30.0 [...] hour stability window. FINAL Marleneanabel Guzmán * [facility] , [address] [facility] [id number] 0 03/09 CMP Creat inine mg/dL 0.66 1.25 0.70 FINAL Marlene Guzmán * [facility] , [address] [facility] [id number] 0 03/09 CMP GFR estim ate ml/min /1.73m ^2 97.1 GFR is calculate d using the CKD-EPI equation. FINAL Marlene Ramirez * [facility] , [address] [facility] [id number] 0 03/09 CMP Gluco se mg/dL 74.0 100.0 363 Criti sami High FINAL Marlene Ramirez * [facility] , [address] [facility] [id number] 0 03/09 CMP Potas sium mmol/L 3.5 5.1 3.9 FINAL Marlene Ramirez * [facility] , [address] [facility] [id number] 0 03/09 CMP Sodiu m mmol/L 137.0 145.0 134 Low FINAL Marlene Ramirez * [facility] , [address] [facility] [id number] 0 03/09 CMP Bilir ubin, total mg/dL 0.2 1.3 1.1 FINAL Marlene Ramirez * [facility] , [address] [facility] [id number] 0 03/09 CMP Total prote in g/dL 6.3 8.2 7.3 FINAL Marlene Guzmán * [facility] , [address] [facility] [id number] 0 03/09 CBC w/ auto diff WBC K/uL 3.0 8.9 7.1 FINAL Marlene Guzmán [place] [facility] [place] [facility] , [address] [place] [id number] 0 03/09 CBC w/ auto diff HGB g/dL 11.3 15.2 14.4 FINAL Marlene Guzmán [place] [facility] [place] [facility] , [address] [place] [id number] 0 03/09 CBC w/ auto diff PLT K/uL 113.0 364.0 179 FINAL Marlene Guzmán [place] [facility] [place] [facility] , [address] [place] [id number] 0 03/09 CBC w/ auto diff Tammy # (ANC) K/uL 1.6 6.6 4.7 FINAL Marlene Guzmán [place] [facility] [place] [facility] , [address] [place] [id number] 0 03/09 CBC w/ auto diff Tammy % % 43.0 74.0 65.7 FINAL Marlene Guzmán [place] [facility] [place] [facility] , [address] [place] [id number] 0 03/09 CBC w/ auto diff IG % % 0.0 0.5 0.6 High FINAL Marlene Guzmán [place] [facility] [place] [facility] , [address] [place] [id number] 0 03/09 CBC w/ auto diff IG # K/uL 0.0 0.03 0.04 High FINAL Marlene Guzmán [place] [facility] [place] [facility] , [address] [place] [id number] 0 03/09 CBC w/ auto diff LY % % 14.0 41.0 25.8 FINAL Marlene Guzmán [place] [facility] [place] [facility] , [address] [place] [id number] 0 03/09 CBC w/ auto diff MO % % 6.0 15.0 6.2 FINAL Marlene Guzmán [place] [facility] [place] [facility] , [address] [place] [id number] 0 03/09 CBC w/ auto diff EO % % 0.0 7.0 1.1 FINAL Marlene Guzmán [place] [facility] [place] [facility] , [address] [place] [id number] 0 03/09 CBC w/ auto diff BA % % 0.0 2.0 0.6 FINAL Marlene Guzmán [place] [facility] [place] [facility] , [address] [place] [id number] 0 03/09 CBC w/ auto diff LY # K/uL 0.4 3.6 1.8 FINAL Marlene Guzmán [place] [facility] [place] [facility] , [address] [place] [id number] 0 03/09 CBC w/ auto diff MO # K/uL 0.2 1.3 0.4 FINAL Marlene Guzmán [place] [facility] [place] [facility] , [address] [place] [id number] 0 03/09 CBC w/ auto diff EO # K/uL 0.0 0.6 0.1 FINAL Marlene Guzmán [place] [facility] [place] [facility] , [address] [place] [id number] 0 03/09 CBC w/ auto diff BA # K/uL 0.0 0.2 0.0 FINAL Marlene Guzmán [place] [facility] [place] [facility] , [address] [place] [id number] 0 03/09 CBC w/ auto diff NRBC % #/100W BC 0.0 0.2 0.0 FINAL Marlene Guzmán [place] [facility] [place] [facility] , [address] [place] [id number] 0 03/09 CBC w/ auto diff RBC M/uL 3.9 5.1 5.08 FINAL Marlene Guzmán [place] [facility] [place] [facility] , [address] [place] [id number] 0 03/09 CBC w/ auto diff HCT % 35.0 48.0 42.9 FINAL Marlene Guzmán [place] [facility] [place] [facility] , [address] [place] [id number] 0 03/09 CBC w/ auto diff MCV fL 80.0 104.0 84.4 FINAL Marlene Guzmán [place] [facility] [place] [facility] , [address] [place] [id number] 0 03/09 CBC w/ auto diff MCH pg 26.0 35.0 28.3 FINAL Marlene Guzmán [place] [facility] [place] [facility] , [address] [place] [id number] 0 03/09 CBC w/ auto diff MCHC g/dL 30.0 35.0 33.6 FINAL Marlene Guzmán [place] [facility] [place] [facility] , [address] [place] [id number] 0 03/09 CBC w/ auto diff MPV fL 9.5 13.4 9.6 FINAL Marlene Guzmán [place] [facility] [place] [facility] , [address] [place] [id number] 0 03/09 CBC w/ auto diff RDW % 11.4 16.1 14.20 FINAL Marlene Guzmán [place] [facility] [place] [facility] , [address] [place] [id number] 0 03/09 Total prote in g/dL 6.3 8.2 7.1 FINAL Marlene Guzmán * [place] [facility] [place] [facility] , [address] [place] [id number] 0 03/09 Album in, SPE g/dL 3.31 5.31 4.70 FINAL Marlene Guzmán * [facility] , [address] [facility] [address] [id number] 0 03/09 Alpha -1 globu tony g/dL 0.19 0.42 0.23 FINAL Marlene Guzmán * [facility] , [address] [facility] [address] [facility] [id number] 0 03/09 Alpha -2 globu tony g/dL 0.44 1.03 0.52 FINAL Marlene Guzmán * [facility] , [address] [facility] [address] [id number] 0 03/09 Beta globu tony g/dL 0.52 1.05 0.80 FINAL Marlene Guzmán * [facility] , [address] [facility] [address] [id number] 0 03/09 Gamma globu tony g/dL 0.59 1.46 0.85 FINAL Marlene Guzmán * [facility] , [address] [facility] [address] [id number] 0 03/09 Elect Gemma layton in Lab resul t note Previou sly identif ied parapro teins detecte d in gamma region. Is now 0.3 and 0.4 gm/dL. Interpr eted and signed by Luis Guillermo MD on 025 FINAL Marlene Guzmán * [facility] , [address] [facility] [address] [facility] [id number] 0 03/09 M-spi ke, SPE, g/dL g/dL 0.0 0.0 0.3 High FINAL Marlene Guzmán * [facility] , [address] [facility] [address] [id number] 0 03/09 M-spi ke 2, SPE g/dL 0.0 0.0 0.4 High FINAL Marlene Guzmán * [facility] , [address] [facility] [id number] 0 03/09 Immun oglob ulin measu remen t IgG, quant mg/dL 610.0 1616.0 1080.49 Test performed at [facility] on a Binding Site Optilite Analyzer that uses a turbidime tric method for analysis. Patient testing should not be performed using multiple methodolo gies due to analytica l variation seen between test methodolo gies. FINAL Marlene Ramirez * [facility] , [address] [facility] [id number] 0 03/09 Immun oglob ulin measu remen t IgA, quant mg/dL 61.0 348.0 577.26 High Test performed at [facility] on a Binding Site Optilite Analyzer that uses a turbidime tric method for analysis. Patient testing should not be performed using multiple methodolo gies due to analytica l variation seen between test methodolo gies. FINAL Marlene Ramirez * [facility] , [address] [facility] [id number] 0 03/09 Immun oglob ulin measu remen t IgM, quant mg/dL 35.0 242.0 91.00 Test performed at [facility] on a Binding Site Optilite Analyzer that uses a turbidime tric method for analysis. Patient testing should not be performed using multiple methodolo gies due to analytica l variation seen between test methodolo gies. 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 History of Present Illness (Neuropsychology Service Director Oncology): 63 y.o.?? 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 Anxious, , female with [...] record:05/23/2019 Last record:05/23/2019; ) Assessment & Plan (Neuropsychology Service Director Oncology): 63?? y.o. 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 Pathology benign. Reviewedpathology, operative findings, expected recovery.?? She is recovering well, no further restrictions.?? She can follow up with PCP/tree expert as needed.? 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
--- OUTSIDE RECORDS SUMMARY | 2025-07-06 23:38 | XMS_ITS ---
Author Name Interface, [id number] lity Address [address] [facility] [address] [place] [address] [facility] Address [address] [facility] [address] [place] [address] Support Name Relationship Address Phone Greg Ch [...] FINAL [facility] [place], [address] [place] [address] 210 [facility] [phone] Phone: () - 11/22 Appea ying (ua) Clear FINAL [facility] [place], [address] [place] [address] 210 [facility] [phone] Phone: () - 11/22 Gluco se (ua), qual 500.0% Abnor mal FINAL [facility] [place], [address] [facility] 210 [facility] [phone] 0 Phone: () - 11/22 Bilir ubin (ua) Negativ e FINAL [facility] [place], [address] [place] [address] 210 [facility] [phone] Phone: () - 11/22 Urina lysis , aceto ne or keton e chapo s measu remen t Negativ e FINAL [facility] [place], [address] [facility] 210 [place] [phone] 0 Phone: () - 11/22 Speci fic gravi ty (ua) 1.005 1.02 1.025% Abnor mal FINAL [facility] [place], [address] [facility] [address] [place] [phone] 0 Phone: () - 11/22 Blood (ua) Negativ e FINAL [facility] [place], [address] [place] [address] 210 [place] [phone] Phone: () - 11/22 pH (ua) 5.0 8.0 6.0% FINAL [facility] [place], [address] [place] [address] 210 [facility] [id number] 0 Phone: () - 11/22 Prote in (ua) Negativ e FINAL [facility] [place], [address] [place] [address] 210 [place] [id number] 0 Phone: () - 11/22 Urobi linog en (ua) 0.2 1.0 0.2% FINAL [facility] [place], [address] [place] [address] 210 [place] [id number] 0 Phone: () - 11/22 Nitri te (ua) Negativ e FINAL [facility] [place], [address] [place] [address] [address] [place] [phone] 0 Phone: () - 11/22 Leuko cyte jerson ase (ua), qual Negativ e FINAL [facility] [place], [address] [place] [address] 210 [place] [phone] 0 Phone: () - 11/22 UA comme nt 1 Dipstic k negativ e- Culture ordered per provide r FINAL [facility] [place], [address] [place] [address] 210 [place] [phone] 0 Phone: () - 11/22 Urine cultu re panel CULTU RE, URINE , ROUTI NE SEE NOTE 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 mal 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, 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, 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: [id number] est Status: FinalSpec imen Source: UrineSpec imen [...] FINAL Hafsa Bud [facility], [facility] [address] [facility] [id number] 12/18 [place] [facility] other lab See precision assembler d 04/18 Total prote in g/dL 6.3 8.2 6.9 FINAL Marlene Guzmán * [facility], [address] [facility] [address] [place] [address] [id number] 04/18 Album in, SPE g/dL 3.31 5.31 3.97 FINAL Marlene Guzmán * [facility], [facility] [address] [place] [address] [id number] 0 04/18 Alpha -1 globu tony g/dL 0.19 0.42 0.26 FINAL Marlene Guzmán * [facility], [facility]0 [facility] [address] [place] [address] [id number] 0 04/18 Alpha -2 globu tony g/dL 0.44 1.03 0.63 FINAL Marlene Guzmán * [facility] [address] [place] [address] [id number] 0 04/18 Beta globu tony g/dL 0.52 1.05 0.95 FINAL Marlene Guzmán * [facility], [address] [facility] [address] [place] [address] [id number] 0 04/18 Gamma globu tony g/dL 0.59 1.46 1.10 FINAL Marlene Guzmán * [facility], [address] [facility] [address] [place] [address] [id number] 0 04/18 Elect Gemma layton in Lab resul t note Previou sly identif ied parapro teins detecte d in gamma region. Were 0.3 and 0.4 gm/dL, now 0.3 and 0.3 gm/dL. Interpr eted and signed by Adrienne Swanson MD on 024 FINAL Marlene Guzmán * [facility], [facility]0 [facility] [address] [place] [address] [id number] 0 04/18 M-spi ke, SPE, g/dL g/dL 0.0 0.0 0.3 High FINAL Marleneanabel Guzmán * [facility], [address] [facility] [id number] 0 04/18 M-spi ke 2, SPE g/dL 0.0 0.0 0.3 High FINAL Marlene Guzmán * [facility], [address] [facility] [address] [facility] [id number] 0 04/18 Immun oglob ulin measu remen t IgG, quant mg/dL 610.0 1616.0 946.67 Test performed at [facility] on a Binding Site Optilite Analyzer that uses a turbidime tric method for analysis. Patient testing should not be performed using multiple methodolo gies due to analytica l variation seen between test methodolo gies. FINAL Marlene Guzmán * [facility], [address] [id number] 0 04/18 Immun oglob ulin measu remen t IgA, quant mg/dL 61.0 348.0 493.08 High Test performed at [facility] on a Binding Site Optilite Analyzer that uses a turbidime tric method for analysis. Patient testing should not be performed using multiple methodolo gies due to analytica l variation seen between test methodolo gies. FINAL Marlene Guzmán * [facility], [address] [id number] 0 04/18 Immun oglob ulin measu remen t IgM, quant mg/dL 35.0 242.0 75.62 Test performed at [facility] on a Binding Site Optilite Analyzer that uses a turbidime tric method for analysis. Patient testing should not be performed using multiple methodolo gies due to analytica l variation seen between test methodolo gies. FINAL Marlene Guzmán * [facility], [address] [id number] 0 04/18 Free kappa / lambd a with K/L ratio , serum Epping light chain , free, serum , mg/dL mg/dL 0.33 1.94 3.62 High Test performed at [facility] on a Binding Site Optilite Analyzer that uses a turbidime tric method for analysis. Patient testing should not be performed using multiple methodolo gies due to analytica l variation seen between test methodolo gies. FINAL Marlene Stroud [facility], [address] [id number] 0 04/18 Free kappa / lambd a with K/L ratio , serum Lambd a light chain , free, serum , mg/dL mg/dL 0.57 2.63 3.13 High Test performed at [facility] on a Binding Site Optilite Analyzer that uses a turbidime tric method for analysis. Patient testing should not be performed using multiple methodolo gies due to analytica l variation seen between test methodolo gies. FINAL Marlene [facility], [address] [facility] [address] [id number] 0 04/18 Free kappa / lambd a with K/L ratio , serum K/L light chain ratio , free, serum 0.26 1.65 1.16% FINAL [facility]lene [facility], [address] [facility] [address] [id number] 0 04/18 CBC w/ auto diff WBC K/uL 3.0 8.9 7.0 FINAL Marlene [facility] [place], [address] [facility] [address] [facility] [id number] 0 Phone: () - 04/18 CBC w/ auto diff HGB g/dL 11.3 15.2 14.0 FINAL Marlene [facility] - [place], [address] [place] [id number] 0 Phone: () - 04/18 CBC w/ auto diff PLT K/uL 113.0 364.0 164 FINAL Marlene Rubi [facility] - [place], [address] [place] [id number] 0 Phone: () - 04/18 CBC w/ auto diff Tammy # (ANC) K/uL 1.6 6.6 4.5 FINAL Marlene [facility] - [place], [address] [place] [id number] 0 Phone: () - 04/18 CBC w/ auto diff Tammy % % 43.0 74.0 64.0 FINAL Marlene Ramirez [facility] [place], [address] [place] [id number] 0 Phone: () - 04/18 CBC w/ auto diff IG % % 0.0 0.5 0.3 FINAL Marlene Ramirez [facility] [place], [address] [place] [id number] 0 Phone: () - 04/18 CBC w/ auto diff IG # K/uL 0.0 0.03 0.02 FINAL Marlene Ramirez [facility] [place], [address] [place] [id number] 0 Phone: () - 04/18 CBC w/ auto diff LY % % 14.0 41.0 28.2 FINAL Marlene Guzmán [facility] [place], [address] [place] [id number] 0 Phone: () - 04/18 CBC w/ auto diff MO % % 6.0 15.0 6.0 FINAL Marlene Guzmán [facility] [place], [address] [place] [id number] 0 Phone: () - 04/18 CBC w/ auto diff EO % % 0.0 7.0 1.1 FINAL Marlene [facility] [place], [address] [place] [id number] 0 Phone: () - 04/18 CBC w/ auto diff BA % % 0.0 2.0 0.4 FINAL Marlene [facility] [place], [address] [place] [id number] 0 Phone: () - 04/18 CBC w/ auto diff LY # K/uL 0.4 3.6 2.0 FINAL Marlene [facility] - [place], [address] [place] [id number] 0 Phone: () - 04/18 CBC w/ auto diff MO # K/uL 0.2 1.3 0.4 FINAL Marlene [facility] - [place], [address] [place] [id number] 0 Phone: () - 04/18 CBC w/ auto diff EO # K/uL 0.0 0.6 0.1 FINAL Marlene [facility] - [place], [address] [place] [id number] 0 Phone: () - 04/18 CBC w/ auto diff BA # K/uL 0.0 0.2 0.0 FINAL Marlene [facility] - [place], [address] [place] [id number] 0 Phone: () - 04/18 CBC w/ auto diff NRBC % #/100W BC 0.0 0.2 0.0 FINAL Marlene [facility] - [place], [address] [place] [id number] 0 Phone: () - 04/18 CBC w/ auto diff RBC M/uL 3.9 5.1 4.84 FINAL Marlene [facility] [place], [address] [place] [id number] 0 Phone: () - 04/18 CBC w/ auto diff HCT % 35.0 48.0 40.4 FINAL Marlene Guzmán [facility] [place], [address] [place] [id number] 0 Phone: () - 04/18 CBC w/ auto diff MCV fL 80.0 104.0 83.5 FINAL Marlene Guzmán [facility] [place], [address] [place] [id number] 0 Phone: () - 04/18 CBC w/ auto diff MCH pg 26.0 35.0 28.9 FINAL Marlene Guzmán [facility] [place], [address] [place] [id number] 0 Phone: () - 04/18 CBC w/ auto diff MCHC g/dL 30.0 35.0 34.7 FINAL Marlene Guzmán [facility] [place], [address] [place] [id number] 0 Phone: () - 04/18 CBC w/ auto diff MPV fL 9.5 13.4 9.7 FINAL Marlene Guzmán [facility] [place], [address] [place] [id number] 0 Phone: () - 04/18 CBC w/ auto diff RDW % 11.4 16.1 13.80 FINAL Marlene Guzmán [facility] [place], [address] [place] [id number] 0 Phone: () - 04/18 CMP Album in g/dL 3.5 5.0 4.0 FINAL Marlene Guzmán * [facility] [place], [address] [place] [id number] 0 04/18 CMP Alkal ine phosp hatas e U/L 36.0 125.0 105 FINAL Marlene Guzmán * [facility] [place], [address] [place] [id number] 0 04/18 CMP ALT/S GPT U/L 0.0 34.0 35 High FINAL Marlene Guzmán * [facility], [address] [facility] [address] [id number] 0 04/18 CMP AST/S GOT U/L 14.0 36.0 44 High FINAL Marlene Guzmán * [facility], [address] [facility] [address] [id number] 0 04/18 CMP BUN mg/dL 7.0 17.0 21.0 High FINAL Marlene Guzmán * [facility], [address] [facility] [address] [id number] 0 04/18 CMP Calci um mg/dL 8.4 10.2 8.8 FINAL Marlene Guzmán * [facility], [address] [facility] [address] [id number] 0 04/18 CMP Chlor nilson mmol/L 96.0 107.0 106 FINAL Marlene Guzmán * [facility], [address] [facility] [address] [id number] 0 04/18 CMP CO2 mmol/L 22.0 30.0 [...] hour stability window. FINAL Marlene Guzmán * [facility], [address] [facility] [address] [id number] 0 04/18 CMP Creat inine mg/dL 0.66 1.25 0.70 FINAL Marlene Guzmán * [facility], [address] [facility] [id number] 0 04/18 CMP GFR estim ate ml/min /1.73m ^2 97.7 GFR is calculate d using the CKD-EPI equation. FINAL Marleen Guzmán * [facility], [address] [facility] [id number] 0 04/18 CMP Gluco se mg/dL 74.0 100.0 267 High FINAL Marlene Guzmán * [facility], [address] [facility] [id number] 0 04/18 CMP Potas sium mmol/L 3.5 5.1 4.0 FINAL Marlene Guzmán * [facility], [address] [facility] [id number] 0 04/18 CMP Sodiu m mmol/L 137.0 145.0 136 Low FINAL Marlene Guzmán * [facility], [address] [facility] [id number] 0 04/18 CMP Bilir ubin, total mg/dL 0.2 1.3 1.0 FINAL Marlene Guzmán * [facility], [address] [facility] [id number] 0 04/18 CMP Total prote in g/dL 6.3 8.2 7.3 FINAL Marlene Guzmán * [facility], [address] [facility] [id number] 0 04/18 [place] [facility] other lab See precision assembler d 12/20 [place] [facility] other lab See precision assembler d 12/20 Misc other lab See precision assembler d 03/09 Free kappa / lambd a with K/L ratio , serum Epping light chain , free, serum , mg/dL mg/dL 0.33 1.94 4.35 High Test performed at [facility] on a Binding Site Optilite Analyzer that uses a turbidime tric method for analysis. Patient testing should not be performed using multiple methodolo gies due to analytica l variation seen between test methodolo gies. FINAL Marlene Guzmán * [facility] , [address] [facility] [address] [facility] [id number] 0 03/09 Free kappa / lambd a with K/L ratio , serum Lambd a light chain , free, serum , mg/dL mg/dL 0.57 2.63 3.83 High Test performed at [facility] on a Binding Site Optilite Analyzer that uses a turbidime tric method for analysis. Patient testing should not be performed using multiple methodolo gies due to analytica l variation seen between test methodolo gies. FINAL Marlene Guzmán * [facility] , [address] [facility] [address] [id number] 0 03/09 Free kappa / lambd a with K/L ratio , serum K/L light chain ratio , free, serum 0.26 1.65 1.14% FINAL Marlene Guzmán * [facility] , [address] [facility] [address] [id number] 0 03/09 CMP Album in g/dL 3.5 5.0 3.8 FINAL Marlene Guzmán * [facility] , [address] [facility] [address] [id number] 0 03/09 CMP Alkal ine phosp hatas e U/L 36.0 125.0 106 FINAL Marlene Guzmán * [facility] , [address] [facility] [address] [id number] 0 03/09 CMP ALT/S GPT U/L 0.0 34.0 37 High FINAL Marlene Guzmán * [facility] , [address] [facility] [address] [id number] 0 03/09 CMP AST/S GOT U/L 14.0 36.0 36 FINAL Marlene Ramirez * [facility] , [address] [facility] [address] [facility] [id number] 0 03/09 CMP BUN mg/dL 7.0 17.0 18.0 High FINAL Marlene Guzmán * [facility] , [address] [facility] [address] [facility] [id number] 0 03/09 CMP Calci um mg/dL 8.4 10.2 8.9 FINAL Marlene Guzmán * [facility] , [address] [facility] [address] [facility] [id number] 0 03/09 CMP Chlor nilson mmol/L 96.0 107.0 99 FINAL Marlene Guzmán * [facility] , [address] [facility] [address] [facility] [id number] 0 03/09 CMP CO2 mmol/L 22.0 30.0 [...] hour stability window. FINAL Marlene Guzmán * [facility] , [address] [facility] [address] [facility] [id number] 0 03/09 CMP Creat inine mg/dL 0.66 1.25 0.70 FINAL Marlene Guzmán * [facility] , [address] [facility] [address] [facility] [id number] 0 03/09 CMP GFR estim ate ml/min /1.73m ^2 97.1 GFR is calculate d using the CKD-EPI equation. FINAL Marlene Guzmán * [facility] , [address] [facility] [address] [id number] 0 03/09 CMP Gluco se mg/dL 74.0 100.0 363 Criti sami High FINAL Marlene Guzmán * [facility] , [address] [facility] [address] [facility] [id number] 0 03/09 CMP Potas sium mmol/L 3.5 5.1 3.9 FINAL Marlene Guzmán * [facility] , [address] [facility] [address] [facility] [id number] 0 03/09 CMP Sodiu m mmol/L 137.0 145.0 134 Low FINAL Marlene Guzmán * [facility] , [address] [facility] [address] [facility] [id number] 0 03/09 CMP Bilir ubin, total mg/dL 0.2 1.3 1.1 FINAL Marlene Guzmán * [facility] , [address] [facility] [address] [facility] [id number] 0 03/09 CMP Total prote in g/dL 6.3 8.2 7.3 FINAL Marlene Guzmán * [facility] , [address] [facility] [address] [facility] [id number] 0 03/09 CBC w/ auto diff WBC K/uL 3.0 8.9 7.1 FINAL Marlene Guzmán [place] [facility] [place] [facility] , [address] [place] [id number] 0 03/09 CBC w/ auto diff HGB g/dL 11.3 15.2 14.4 FINAL Marlene Guzmán [place] [facility] [place] [facility] , [address] [place] [id number] 0 03/09 CBC w/ auto diff PLT K/uL 113.0 364.0 179 FINAL Marlene Guzmán [place] [facility] [place] [facility] , [address] [place] [id number] 0 03/09 CBC w/ auto diff Tammy # (ANC) K/uL 1.6 6.6 4.7 FINAL Marlene Guzmán [place] [facility] [place] [facility] , [address] [place] [id number] 0 03/09 CBC w/ auto diff Tammy % % 43.0 74.0 65.7 FINAL Marlene Guzmán [place] [facility] [place] [facility] , [address] [place] [id number] 0 03/09 CBC w/ auto diff IG % % 0.0 0.5 0.6 High FINAL Marlene Guzmán [place] [facility] [place] [facility] , [address] [place] [id number] 0 03/09 CBC w/ auto diff IG # K/uL 0.0 0.03 0.04 High FINAL Marlene Guzmán [place] [facility] [place] [facility] , [address] [place] [id number] 0 03/09 CBC w/ auto diff LY % % 14.0 41.0 25.8 FINAL Marlene Guzmán [place] [facility] [place] [facility] , [address] [place] [id number] 0 03/09 CBC w/ auto diff MO % % 6.0 15.0 6.2 FINAL Marlene Guzmán [place] [facility] [place] [facility] , [address] [place] [id number] 0 03/09 CBC w/ auto diff EO % % 0.0 7.0 1.1 FINAL Marlene Guzmán [place] [facility] [place] [facility] , [address] [place] [id number] 0 03/09 CBC w/ auto diff BA % % 0.0 2.0 0.6 FINAL Marlene Guzmán [place] [facility] [place] [facility] , [address] [place] [id number] 0 03/09 CBC w/ auto diff LY # K/uL 0.4 3.6 1.8 FINAL Marlene Guzmán [place] [facility] [place] [facility] , [address] [place] [id number] 0 03/09 CBC w/ auto diff MO # K/uL 0.2 1.3 0.4 FINAL Marlene Guzmán [place] [facility] [place] [facility] , [address] [place] [id number] 0 03/09 CBC w/ auto diff EO # K/uL 0.0 0.6 0.1 FINAL Marlene Guzmán [place] [facility] [place] [facility] , [address] [place] [id number] 0 03/09 CBC w/ auto diff BA # K/uL 0.0 0.2 0.0 FINAL Marlene Guzmán [place] [facility] [place] [facility] , [address] [place] [id number] 0 03/09 CBC w/ auto diff NRBC % #/100W BC 0.0 0.2 0.0 FINAL Marlene Guzmán [place] [facility] [place] [facility] , [address] [place] [id number] 0 03/09 CBC w/ auto diff RBC M/uL 3.9 5.1 5.08 FINAL Marlene Guzmán [place] [facility] [place] [facility] , [address] [place] [id number] 0 03/09 CBC w/ auto diff HCT % 35.0 48.0 42.9 FINAL Marlene Guzmán [facility] On[facility] , [address] [place] [facility] [id number] 0 03/09 CBC w/ auto diff MCV fL 80.0 104.0 84.4 FINAL Marlene Guzmán [facility] Oncology , [address] [facility] [address] [place] [facility] [id number] 0 03/09 CBC w/ auto diff MCH pg 26.0 35.0 28.3 FINAL Marlene Guzmán [facility] On[facility] , [address] [facility] [address] [facility] [id number] 0 03/09 CBC w/ auto diff MCHC g/dL 30.0 35.0 33.6 FINAL Marlene Guzmán [facility] On[facility] , [address] [facility] [address] [facility] [id number] 0 03/09 CBC w/ auto diff MPV fL 9.5 13.4 9.6 FINAL Marlene Guzmán [facility] , [address] [facility] [address] [facility] [id number] 0 03/09 CBC w/ auto diff RDW % 11.4 16.1 14.20 FINAL Marlene Guzmán [facility] On[facility] , [address] [facility] [address] [facility] [id number] 0 03/09 Immun oglob ulin measu remen t IgG, quant mg/dL 610.0 1616.0 1080.49 Test performed at [facility] on a Binding Site Optilite Analyzer that uses a turbidime tric method for analysis. Patient testing should not be performed using multiple methodreal rocha due to analytica l variation seen between test methodreal rocha. FINAL Marlene Guzmán * [facility] , [address] [facility] [id number] 0 03/09 Immun oglob ulin measu remen t IgA, quant mg/dL 61.0 348.0 577.26 High Test performed at [facility] on a Binding Site Optilite Analyzer that uses a turbidime tric method for analysis. Patient testing should not be performed using multiple methodolo gies due to analytica l variation seen between test methodolo gies. FINAL Marlene Guzmán * [facility] , [facility] [address] [id number] 0 03/09 Immun oglob ulin measu remen t IgM, quant mg/dL 35.0 242.0 91.00 Test performed at [facility] on a Binding Site Optilite Analyzer that uses a turbidime tric method for analysis. Patient testing should not be performed using multiple methodolo gies due to analytica l variation seen between test methodolo gies. FINAL Marlene Guzmán * [facility] , [facility] [address] [id number] 0 03/09 Total prote in g/dL 6.3 8.2 7.1 FINAL Marlene Guzmán * [facility] , [facility] [address] [place] [address] [id number] 0 03/09 Album in, SPE g/dL 3.31 5.31 4.70 FINAL Marlene Guzmán * [facility] , [facility] [address] [id number] 0 03/09 Alpha -1 globu tony g/dL 0.19 0.42 0.23 FINAL Marlene Guzmán * [facility] , [facility] [address] [id number] 0 03/09 Alpha -2 globu tony g/dL 0.44 1.03 0.52 FINAL Marlene Guzmán * [facility] , [facility] [facility] [address] [id number] 0 03/09 Beta globu tony g/dL 0.52 1.05 0.80 FINAL Marlene Guzmán * [facility] , [address] [facility] [address] [id number] 0 03/09 Gamma globu tony g/dL 0.59 1.46 0.85 FINAL Marlene Guzmán * [facility] , [address] [facility] [address] [id number] 0 03/09 Elect Gemma layton in Lab resul t note Previou sly identif ied parapro teins detecte d in gamma region. Is now 0.3 and 0.4 gm/dL. Interpr eted and signed by Luis Guillermo MD on 025 FINAL Marlene Guzmán * [facility] , [facility] [address] [id number] 03/09 M-spi ke, SPE, g/dL g/dL 0.0 0.0 0.3 High FINAL Marlene Guzmán * [facility] , [address] [facility] [address] [id number] 0 03/09 M-spi ke 2, SPE g/dL 0.0 0.0 0.4 High FINAL Marlene Guzmán * [facility] , [address] [facility] [address] [id number] 0 04/03 Misc other lab See precision assembler d Medications Date Name Route Dose Frequency [...] 70 04/10/2025 BMI 53.23 Notes 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 History of Present Illness (Electromedical Service Engineer Oncology): 63 y.o.?? 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 Anxious, , female tearful??throughout visit. [...] record:05/23/2019 Last record:05/23/2019; ) Assessment & Plan (Electromedical Service Engineer Oncology): 63?? y.o. with abnormal uterine bleeding/PMB [...]
[2025-07-06 23:39] LABS: Alanine Aminotransferase* 34 U/L (4-35); Alkaline Phosphatase* 110 U/L (40-150); Anion Gap 10 mEq/L (7-15); Aspartate Amino Transferase* 34 U/L (12-35); Bilirubin Total* 0.6 mg/dL (0.1-1.5); Calcium* 9.0 mg/dL (8.4-10.6); Carbon Dioxide* 29 mmol/L (20-32); Glucose* 251 mg/dL (60-115); Total Protein* 7.5 g/dL (6.0-8.3)
[2025-07-07] VITALS: RESP 18; O2SAT 99
[2025-07-07 00:55] VITALS: BP 131/78; PULSE 90; RESP 16; TEMP 36.8; O2SAT 98
[2025-07-07] MEDS: INSULIN REGULAR, HUMAN 100 UNIT/ML VIAL 6 UNIT SUBCUT (01:06)
[2025-07-07 01:45] VITALS: PULSE 95; RESP 20; TEMP 36.3; O2SAT 95; O2SAT 96; BMI 51.5
[2025-07-07 03:00] VITALS: BP 196/92; PULSE 95; RESP 20; TEMP 36.3; O2SAT 98
[2025-07-07] MEDS: ACETAMINOPHEN 325 MG TABLET PO (03:02)
--- NOTE | 2025-07-07 03:49 | W.PM.TELEH&P ---
Telehealth- H&P: HPI History of Present Illness Date Seen: 07/07/25 Chief complaint: R hip pain Narrative: Vero Henry is seen as an Interactive Telehealth visit. Vero Henry is a 65-year-old woman with morbid obesity chronic back pain diabetes and diabetic neuropathy. She was at home trying to clean up her house because she was having a lift chair delivered and installed. She either tripped over or stepped over her clothes and felt a tearing sensation and pain on the anterior aspect of her right hip area. Subsequently she had difficulty getting up and moving around even short distances to the bathroom. She called 911 and was able to ambulate to the ambulance with a walker. In the emergency room her vital signs were stable. There was no gross deformity of the hip. Labs were unremarkable. CT of the pelvis was negative. She was given oxycodone but was still unable to ambulate well enough to go home. She is being admitted for observation. According to her nurse she was able to ambulate about 15 feet when she got to the medical unit with a walker. Review of Systems Status of ROS: Reports: 10 or more systems reviewed and unremarkable except as noted in History and below PFSH PFS Social History What is your current living situation?: I presently have a place to live Problems where you live: no known problems Problems where you live details: N/A In the past 12 months, utilities in danger of being shut off: no In past 12 months, lack of transportation kept you from medical appts, meetings, work, or getting things needed for daily living: no In the past 12 mos, have been you worried that your food would run out before you had money to buy more?: often true In the past 12 mos, the food you bought just didn't last and you didn't have money to buy more?: sometimes true Highest level of school completed/degree received: high school graduate Smoking Status: Never smoker Second hand tobacco smoke exposure: No How often do you have a drink containing alcohol: never AUDIT-C Alcohol total score: 0 Non-prescribed substance use: denies use Caffeine: Yes (2 sodas/week) How often does anyone, including family, friends and others, physically hurt you: rarely How often does anyone, including family, friends and others, insult or talk down to you: frequently How often does anyone, including family, friends and others, threaten you with harm: never How often does anyone, including family, friends and others, scream or curse at you: frequently service: No Health Related Social Needs: food insecurity (Z59.41) and Other personal risk factors, not elsewhere classified (Z91.89) Meds Home Medications and Allergies Home Medications ?Medication ?Instructions ?Recorded ?Confirmed ?Type blood sugar diagnostic (OneTouch 02/03/23 02/03/23 History Ultra Test strips) calcium carbonate 600 mg PO DAILY 02/03/23 07/06/25 History ibuprofen 400 mg tablet 400 mg PO Q6-8H PRN 02/03/23 07/06/25 History metformin 500 mg tablet mg PO 02/03/23 02/08/25 History methocarbamol 500 mg tablet 500 mg PO QID 02/03/23 07/06/25 History acetaminophen 500 mg tablet 1,000 mg PO Q6H PRN 02/08/25 07/06/25 History cholecalciferol (vitamin D3) .Route 02/08/25 02/08/25 History insulin glargine 100 unit/mL (3 24 unit subcut QAM 02/08/25 07/06/25 History mL) subcutaneous pen (Lantus Solostar U-100 Insulin) ketoconazole 2 % topical cream 1 applic topical BID PRN 02/08/25 07/06/25 History metformin 500 mg tablet,extended 500 mg PO DAILY 02/08/25 07/06/25 History release 24 hr multivitamin 1 tab PO QAM 02/08/25 02/08/25 History oxycodone 5 mg tablet 5 mg PO DAILY PRN 02/08/25 07/06/25 History sertraline 25 mg tablet 25 mg PO DAILY 02/08/25 02/08/25 History lorazepam 0.5 mg tablet 0.5 mg PO 07/06/25 History tirzepatide 2.5 mg/0.5 mL 2.5 mg subcut 07/06/25 History subcutaneous pen injector (Mounjaro) Allergies Allergy/AdvReac Type Severity Reaction Status Date / Time ketamine Allergy Severe Verified 02/08/25 07:33 cephalexin Allergy Mild Rash Verified 02/08/25 07:31 gabapentin Allergy Mild Rash Verified 02/08/25 07:31 [id number] Reductase Allergy myalgia Verified 02/08/25 07:31 Inhibitor Sulfa (Sulfonamide Allergy Rash Verified 02/08/25 07:31 Antibiotics) trimethoprim AdvReac Unknown Verified 02/08/25 07:31 aripiprazole (From Abilify) AdvReac restlessnes Verified 02/08/25 07:31 s asenapine (From Saphris) AdvReac Dizziness Verified 02/08/25 07:31 lurasidone (From Latuda) AdvReac restless Verified 02/08/25 07:31 legs metformin AdvReac Diarrhea Verified 02/08/25 07:31 metoprolol AdvReac Anxiety Verified 02/08/25 07:31 metronidazole AdvReac Headache Verified 02/08/25 07:31 risperidone AdvReac psych Verified 02/08/25 07:31 tolterodine AdvReac Dizziness Verified 02/08/25 07:31 triamcinolone (From Kenalog) AdvReac Flushing Verified 02/08/25 07:31 vancomycin AdvReac Headache Verified 02/08/25 07:31 baby powder AdvReac Rash Uncoded 02/08/25 07:31 Exam Narrative Exam Narrative: Physical Exam GENERAL: ?vital signs reviewed, well developed and nourished, in no distress HEART: Regular rate and rhythm without any rubs, murmurs, or gallops. LUNGS: Clear to auscultation bilaterally with good air movement throughout ABDOMEN: Observation from nurse assisted exam, abdomen appears soft, nontender, and nondistended with Positive bowel sounds noted. EXTREMITIES: Strength and sensation is observed to be grossly within normal limits in the upper and lower extremities.? No focal strength deficit is observed. SKIN:? Observed warm and dry with color normal Const Vital Signs, click to edit/add: Vital Signs - 24 hr 07/06/25 22:30 07/06/25 22:40 07/06/25 23:37 Temperature 97.5 F L Pulse Rate [Pulse Oximeter] Pulse Rate [Right Pulse Oximeter] 100 Respiratory Rate 16 Respiratory Rate [Right Hip] 18 Blood Pressure [Right Arm] Blood Pressure [Right Upper Arm] 134/82 Pulse Oximetry 98 98 Oxygen Delivery Method Room Air Oxygen Flow Rate 07/07/25 00:00 07/07/25 00:55 07/07/25 01:45 Temperature 98.2 F 97.4 F L Pulse Rate [Pulse Oximeter] 95 Pulse Rate [Right Pulse Oximeter] 90 Respiratory Rate 16 20 Respiratory Rate [Right Hip] 18 Blood Pressure [Right Arm] Blood Pressure [Right Upper Arm] 131/78 Pulse Oximetry 98 96 Oxygen Delivery Method Room Air Room Air Oxygen Flow Rate 07/07/25 01:45 07/07/25 03:00 Temperature 97.4 F L Pulse Rate [Pulse Oximeter] 95 Pulse Rate [Right Pulse Oximeter] Respiratory Rate 20 20 Respiratory Rate [Right Hip] Blood Pressure [Right Arm] 196/92 H Blood Pressure [Right Upper Arm] Pulse Oximetry 95 98 Oxygen Delivery Method Room Air Nasal Cannula Oxygen Flow Rate 1 Hospitalist - H&P: Result Labs Labs: Short CBC 07/06/25 Range/Units 23:11 WBC 7.25 (4.50-11.00) K/uL Hgb 12.8 (12.0-16.0) gm/dL Hct 37.9 (33.0-51.0) % Plt Count 176 (140-440) K/uL BMP 07/06/25 23:11 Sodium 135 Potassium 4.0 Chloride 96 Carbon Dioxide 29 BUN 22 Creatinine 0.7 Glucose 251 H Calcium 9.0 Liver Function 07/06/25 Range/Units 23:11 Total Bilirubin 0.6 (0.1-1.5) mg/dL AST 34 (12-35) U/L ALT 34 (4-35) U/L Alkaline Phosphatase 110 (40-150) U/L Albumin 4.0 (3.3-5.0) g/dL Imaging CT scan - pelvis: Attestation: I have reviewed the pertinent imaging results. Radiologist's impression: see HPI Assessment and Plan Assessment and plan (1) Acute hip pain: Status: Acute (2) Hyperglycemia: Status: Acute Plan The patient is a 65-year-old woman with morbid obesity chronic back pain diabetes and diabetic neuropathy. She was at home trying to clean up her house because she was having a lift chair delivered and installed. She either tripped over or stepped over her clothes and felt a tearing sensation and pain on the anterior aspect of her right hip area. Subsequently she had difficulty getting up and moving around even short distances to the bathroom. She called 911 and was able to ambulate to the ambulance with a walker. In the emergency room her vital signs were stable. There was no gross deformity of the hip. Labs were unremarkable. CT of the pelvis was negative. She was given oxycodone but was still unable to ambulate well enough to go home. She is being admitted for observation. According to her nurse she was able to ambulate about 15 feet when she got to the medical unit with a walker. Acute right hip pain CT negative for fracture or dislocation. No evidence of hematoma from a muscle tear. Admit to observation Analgesics as needed Physical therapy consult tomorrow The patient may need to discharge to a facility for physical therapy Uncontrolled type 2 diabetes Check hemoglobin A1c Aspart insulin correction scale Need to verify her home regimen before ordering Chronic pain chronic pain Need to verify her home occasions Obstructive sleep apnea CPAP not available in the hospital so we will use as needed oxygen by nasal cannula tonight Telehealth: Statement Statement Telehealth Visit: Today's History and Physical is provided via interactive telehealth by Joshua Fajardo MD.? Patient is located at [facility].? Provider is located at [facility].? Nursing staff assisted with the patient's exam. The visit being done today meets criteria for a telehealth visit and the patient or patient?s parent/guardian is aware the visit is a telehealth visit. Camera End Time: 01:54
[2025-07-07 08:40] VITALS: BP 138/61; PULSE 91; TEMP 36.2; O2SAT 97
--- NOTE | 2025-07-07 09:34 | REH.PT ---
PT orders received. Patient is declining PT servies at this time due to outpatient (OBS) status. Will check again tomorrow if patient is still here and status has changed.
--- NOTE | 2025-07-07 11:05 | PC.NURSE ---
Discharged home, the patient took [facility] transportation in order to get home. All belongings were sent home with the patient. Nieves GODWIN BSN
--- NOTE | 2025-07-07 13:20 | P.DS_ITS ---
DS: Providers Provider Date Seen: 07/07/25 Date of admission: 07/07/25 00:56 Primary care physician: Jimy Posada MD Admitting Clinician: Joshua Fajardo MD Consults: 07/07/25 02:23 Consult to Physical Therapy [CONS] Routine Comment: Reason(s) for PT Consult:: Evaluate Ambulation Any Restrictions?:: No Restrictions 07/07/25 02:50 Consult to Legal Billing Coordinator [CONS] Routine Comment: Reason for Consult:: Abuse, Neglect Potential Attending Physician on discharge[facility]: 07/07/25 DS: Diagnosis Discharge Diagnosis (1) Acute hip pain: Status: Acute Problem details: -morbid overuse injury. Exam consistent with hip flexor strain. (2) Hyperglycemia: Status: Acute Problem details: -A1c 8.5 DS: Summary Hospital Course Hospital Course: BRIEF HOSPITAL COURSE: Patient was admitted under observation for approximately 10 hours. Sonia was requesting discharge early on the morning of 07/07. She was upset that she was admitted under observation and was concerned about the financial repercussions. She declined to see physical therapy. She refused insulin and enoxaparin. She received 3 doses of oxycodone and 1 dose of Tylenol. A 1 time order of 6 units of regular insulin. She thought her pain was improved. She was discharged in improved condition. No new meds were sent. DISCHARGE MEDICATIONS: No changes. No prescriptions. Specific instructions to the patient and follow-up are outlined below. REVIEW OF SYSTEMS No new chest pain or dyspnea Pain controlled No voiding difficulties Tolerating diet challenge PHYSICAL EXAM: CONSTITUTIONAL: Limited conversation. Patient was upset. GENERAL: Well-developed and above ideal body weight, in no respiratory distress. VITAL SIGNS: see record. HEENT: Sclerae are anicteric. No petechiae. MSK: I had the patient go from laying in bed to standing with her walker without assistance. We discussed where her pain was and that this was likely a groin/hip flexor strain. NEURO: Speech is fluent. A brief neurologic exam is negative. SKIN: No rashes, petechiae, concerning changes PSYCHIATRIC: Euthymic. DISPOSITION: Home/self-care Time spent on discharge 37 minutes. Status at Discharge Functional status at discharge: uses cane/walker Overall status at discharge: patient is progressing back to baseline Time Spent with Patient Time attestation: Total time spent providing and/or coordinating discharge services: Exam Const: Vital Signs, click to edit/add: Vital Signs - 24 hr 07/06/25 22:30 07/06/25 22:40 07/06/25 23:37 Temperature 97.5 F L Pulse Rate [Pulse Oximeter] Pulse Rate [Right Pulse Oximeter] 100 Respiratory Rate 16 Respiratory Rate [ Right Hip] 18 Blood Pressure [Ri ght Arm] Blood Pressure [Ri ght Upper Arm] 134/82 Pulse Oximetry 98 98 Oxygen Delivery Me thod Room Air Oxygen Flow Rate 07/07/25 00:00 07/07/25 00:55 07/07/25 01:45 Temperature 98.2 F 97.4 F L Pulse Rate [Pulse Oximeter] 95 Pulse Rate [Right Pulse Oximeter] 90 Respiratory Rate 16 20 Respiratory Rate [ Right Hip] 18 Blood Pressure [Ri ght Arm] Blood Pressure [Ri ght Upper Arm] 131/78 Pulse Oximetry 98 96 Oxygen Delivery Me thod Room Air Room Air Oxygen Flow Rate 07/07/25 01:45 07/07/25 03:00 07/07/25 07:00 Temperature 97.4 F L Pulse Rate [Pulse Oximeter] 95 Pulse Rate [Right Pulse Oximeter] Respiratory Rate 20 20 Respiratory Rate [ Right Hip] Blood Pressure [Ri ght Arm] 196/92 H Blood Pressure [Ri ght Upper Arm] Pulse Oximetry 95 98 Oxygen Delivery Me thod Room Air Nasal Cannula Room Air Oxygen Flow Rate 1 07/07/25 08:40 Temperature 97.2 F L Pulse Rate [Pulse Oximeter] 91 Pulse Rate [Right Pulse Oximeter] Respiratory Rate Respiratory Rate [ Right Hip] Blood Pressure [Ri ght Arm] 138/61 Blood Pressure [Ri ght Upper Arm] Pulse Oximetry 97 Oxygen Delivery Me thod Room Air Oxygen Flow Rate DS: Data Data Completed and Pending Labs on day of discharge: Labs from last 24 hours 07/06/25 23:11 WBC 7.25 RBC 4.45 Hgb 12.8 Hct 37.9 MCV 85 MCH 29 MCHC 34 RDW Coeff of Julisa 13.8 Plt Count 176 Neut % (Auto) 62.6 Lymph % (Auto) 30.3 [place] % (Auto) 5.5 Eos % (Auto) 1.0 Baso % (Auto) 0.3 Neut # (Auto) 4.54 Lymph # (Auto) 2.20 [place] # (Auto) 0.40 Eos # (Auto) 0.07 Baso # (Auto) 0.02 Abs Immat Gran (auto) 0.02 Imm/Tot Granulo (auto) 0.3 Sodium 135 Potassium 4.0 Chloride 96 Carbon Dioxide 29 Anion Gap 10 BUN 22 Creatinine 0.7 Estimated Creat Clear 53.91 Estimated GFR 97 Glucose 251 H Hemoglobin A1c 8.2 H Calcium 9.0 Total Bilirubin 0.6 AST 34 ALT 34 Alkaline Phosphatase 110 Total Protein 7.5 Albumin 4.0 Discharge Plan Discharge Disposition: Home, Self-Care Date of Admission: 07/07/25 00:56 Attending Provider on Discharge: Gricel Lemon Primary Care Provider: Jimy Posada Condition: Improved Anticipated Discharge Date/Time: 07/07/25 10:13 Discharge Medications: Continued multivitamin Tablet 1 tab PO QAM Rx Instructions: 1/2 gummy acetaminophen 500 mg tablet 1,000 mg PO Q6H PRN ketoconazole 2 % cream 1 applic topical BID PRN metformin 500 mg tablet extended release 24 hr 500 mg PO DAILY oxycodone 5 mg tablet 5 mg PO DAILY PRN insulin glargine [Lantus Solostar U-100 Insulin] 100 unit/mL (3 mL) insulin pen 24 unit subcut QAM (DME) OneTouch Ultra Test Strip 1 strip MISCELLANEOUS DAILY calcium carbonate 600 mg calcium (1,500 mg) tablet 600 mg PO DAILY ibuprofen 400 mg tablet 400 mg PO Q6-8H PRN methocarbamol 500 mg tablet 500 mg PO QID cholecalciferol (vitamin D3) .Route Rx Instructions: winter months lorazepam 0.5 mg tablet 0.5 mg PO Mounjaro 2.5 mg/0.5 mL pen injector 2.5 mg subcut Q7D sertraline 50 mg tablet 50 mg PO DAILY Discharge Orders: Discharge Order (Routine); Ordered 07/07/25 Ordered By: Gricel Lemon Patient Education: Muscle Strain (DC) Additional Instructions: do the exercises with stepping in place and turning your right hip out 2-3 times a day cool compresses and massage with ibuprofen and tylenol will help the most Call your primary care provider to schedule a follow up appointment in 1-2 weeks. Activity Level: Activity as Tolerated Discharge Diet: Diabetic Follow Up Appointments: Jimy Posada MD [Primary Care Provider, Family Practice] Referral Note: Call Wednesday to schedule an appointment with your primary care provider in 1-2 weeks (July 12-) Forms: [facility] Info Instructions
== END 2025-07-07 10:50 | disposition home or self-care (01) ==
LOC: ED 07-07 00:50 → MEDSURG 07-07 10:14
PROVIDERS: Admitting Provider Internal Medicine; Emergency Provider Family Medicine; PCP Student in an Organized Health Care Education/Training Program; Visit Provider Internal Medicine
DX: M25.551 Pain in right hip (principal); X50.1XXA Overexertion from prolonged static or awkward postures, initial encounter; E11.65 Type 2 diabetes mellitus with hyperglycemia; Z79.4 Long term (current) use of insulin; E11.40 Type 2 diabetes mellitus with diabetic neuropathy, unspecified; E66.01 Morbid (severe) obesity due to excess calories
CPT/HCPCS: 36415; 72192; 80053; 83036; 85025; 94761; 99284; 99285; A9270; G0378